=== PATIENT | female | born 1940 | race Caucasian/White ===

== ENCOUNTER 2021-01-21 12:53 | Observation (INO) ==
--- NOTE | 2021-01-21 15:30 | Emergency Department Note ---
History of Present Illness General Chief complaint: Rectal Bleed Stated complaint: DIVERTICULITIS, BLEEDING Time Seen by Provider: 01/21/21 15:11 Source: patient History of Present Illness Provider complaint: Weakness and shortness of breath Onset (ago): week(s) Location: chest Severity: moderate Pain Consistency: + constant Maximum Pain Intensity: 0 Quality: + other (Short of breath) Exacerbated By: + other (Exertion) Associated symptoms: + shortness of breath, + weakness and + other (Rectal bleeding); no chest pain, no cough, no fever/chills or no nausea/vomiting This is a 80-year-old female who presents to the emergency department for admission to the hospital. She was seen here last night and was initially admitted but then left AMA because she stated that she had to get her car home to her . She is coming back today because she was called at home and told that she has possible diverticulitis on her CT scan from last night. She also states that she is willing to stay in the hospital this time. She complains of feeling weak and having shortness of breath for the past 3 weeks. She states that she has no energy and and exertion makes her short of breath. She has noted some rectal bleeding for the past 2 weeks with maroon-colored stools. She does state that last night she had a bowel movement and there was bright red blood per rectum. She did have a rectal examination here in hemoglobin which was low. She was given a unit of packed RBCs but then left AGAINST MEDICAL ADVICE. She denies having any chest discomfort or pain. She denies any fever, cough or cold symptoms, vomiting or urinary symptoms. She denies any leg swelling or pain. She does state that she has some mild pain in her left lower abdomen. She is on Eliquis for atrial fibrillation. She states that she last took a dose yesterday morning. Home Medications Medication Instructions Recorded Confirmed Type apixaban 5 mg tablet (Eliquis) 5 mg PO BID 10/07/20 01/21/21 History aspirin 81 mg tablet,delayed 81 mg PO QAM 10/07/20 01/21/21 History release cyanocobalamin (vitamin B-12) 1,000 mcg PO QAM 10/07/20 01/21/21 History 1,000 mcg tablet gabapentin 800 mg tablet 800 mg PO DAILY 10/07/20 01/21/21 History lisinopril 10 mg tablet 10 mg PO QAM 10/07/20 01/21/21 History metoprolol tartrate 25 mg tablet 50 mg PO BID 10/07/20 01/21/21 History omeprazole 20 mg tablet,delayed 20 mg PO QAM 10/07/20 01/21/21 History release acetaminophen 325 mg tablet 650 mg PO HS 01/20/21 01/21/21 History (Tylenol) atorvastatin 80 mg tablet 80 mg PO DAILY 01/21/21 01/21/21 History empagliflozin 25 mg tablet 25 mg PO DAILY 01/21/21 01/21/21 History (Jardiance) metformin 500 mg tablet 500 mg PO BID 01/21/21 01/21/21 History oxybutynin chloride 5 mg 5 mg PO DAILY 01/21/21 01/21/21 History tablet,extended release 24 hr sertraline 25 mg tablet 25 mg PO DAILY 01/21/21 01/21/21 History trazodone 50 mg tablet 50 mg PO HS 01/21/21 01/21/21 History Allergies Allergy/AdvReac Type Severity Reaction Status Date / Time codeine Allergy Mild SICK Verified 01/20/21 19:01 propoxyphene Allergy Mild SICK Verified 01/20/21 19:01 BEE STING Allergy Severe Anaphylaxis Uncoded 01/20/21 19:01 Past Med/Surg History Medical History CAD (coronary artery disease) S/p PCI with BMS to D1 in 2011 COPD (chronic obstructive pulmonary disease) Per records Diabetes mellitus, type 2 GERD (gastroesophageal reflux disease) History of kidney stones Hyperlipidemia Hypertension Nocturnal hypoxemia Per records Obesity Osteoarthritis Paroxysmal atrial fibrillation PUD (peptic ulcer disease) Smoker Surgical History History of cataract surgery RT/LEFT History of colonoscopy History of cystoscopy History of heart artery stent 1 STENT PLACED to D1 in 2011 History of hysterectomy History of repair of rotator cuff RT History of tonsillectomy and adenoidectomy History of tooth extraction Family History Son Family history of diabetes mellitus Other No family history of adverse response to anesthesia Social History Smoking Status: Current every day smoker Tobacco Type: Cigarettes Cigarettes Per Day: 20 PER DAY; Second Hand Exposure: Yes (HUSBANDS SMOKE); Tobacco Cessation Education Requested by Patient: No Hx Alcohol Use: No Hx Substance Use: No Preferred Language: South Korean Communication Ability: Effective Migration Specialist Required: No Beliefs That Will Affect Care: None Current Living Situation: Spouse Other Information That Helps Us Care for You: No Feels Safe at Home: Yes Safety Concerns: Feels Safe At This Time Assistive Devices: None Review of Systems See HPI for pertinent positives & negatives. and A total of 10 systems reviewed and were otherwise negative Physical Exam Vital Signs Vital Signs - 24 hr 01/21/21 13:59 01/21/21 16:53 Temperature 36.8 C Temperature Source Temporal Artery Scan Pulse Rate 78 Pulse Rate [Apical] 72 Pulse Rhythm [Apical] Regular Respiratory Rate 18 16 Respiratory Effort / Characteristics Non-Labored Spontaneous Non-Labored Respiratory Depth Normal Normal Respiratory Pattern Regular Blood Pressure 149/69 H Blood Pressure [Right Arm] 155/110 H Blood Pressure Mean 95 Blood Pressure Mean [Right Arm] 125 Blood Pressure Position Sitting Pulse Oximetry 99 99 Oxygen Delivery Method Room Air Room Air Sepsis Recent Fever Within 48 Hours No Sepsis New/Unexplained Change in Mental Status N/A Sepsis Action Taken by Nursing No Action Required Constitutional: Vital signs reviewed. Eyes: Pupils are equal round reactive to light. Conjunctiva are noninjected. ENT: Pharynx is clear without erythema or exudate. Mucous membranes are moist. Neck supple without meningeal signs. Respiratory: Clear to auscultation bilaterally. Breath sounds are equal bilaterally. Cardiovascular: Regular rate and rhythm. No rubs or gallops. GI: Soft, nondistended with left lower quadrant tenderness. No guarding. Bowel sounds are present. Musculoskeletal: No peripheral edema. No lower extremity tenderness. Integumentary: No cyanosis. or jaundice. Neurological: The patient is awake and alert. No focal deficits. Psychiatric: Normal affect. Not anxious appearing. Course Administered Medications Pantoprazole Sodium 40 mg/ (Syringe) 10 mls @ 5 mls/min IV BID BARRON Stop: 02/20/21 20:59 Last Admin: 01/21/21 21:29 Dose: 5 mls/min Documented by: [id number] Sodium Chloride (Nss 1000ml) 1,000 mls @ 100 mls/hr IV .Q10H BARRON Stop: 02/20/21 20:26 Last Admin: 01/21/21 21:27 Dose: 100 mls/hr Documented by: [id number] Piperacillin Sod/Tazobactam (Sod 3.375 gm/ Dextrose) 115 mls @ 28.75 mls/hr IV Q8H BARRON; Protocol Stop: 01/31/21 21:59 Last Admin: 01/21/21 21:29 Dose: 28.8 mls/hr Documented by: [id number] Metoprolol Tartrate (Metoprolol Tartrate 50 Mg Tab) 50 mg PO BID BARRON Stop: 02/20/21 20:59 Last Admin: 01/21/21 21:28 Dose: 50 mg Documented by: [id number] Trazodone HCl (Trazodone Hcl 50 Mg Tab) 50 mg PO HS BARRON Stop: 02/20/21 20:59 Last Admin: 01/21/21 21:30 Dose: 50 mg Documented by: [id number] Discontinued Medications Piperacillin Sod/Tazobactam (Sod 4.5 gm/ Dextrose) 120 mls @ 200 mls/hr IV NOW ONE; Protocol Stop: 01/21/21 16:48 Last Infusion: 01/21/21 19:32 Dose: 0 mls/hr Documented by: [id number] Admin: 01/21/21 18:01 Dose: 200 mls/hr Documented by: [id number] Pantoprazole Sodium (Pantoprazole 40 Mg Tab) 40 mg PO NOW STA Stop: 01/21/21 16:24 Last Admin: 01/21/21 17:05 Dose: 40 mg Documented by: [id number] Piperacillin Sod/Tazobactam Sod (Piperacillin/Tazobactam 4.5 Gm/120ml D5w) Confirm Administered Dose 4.5 gm IV .STK-MED ONE Stop: 01/21/21 17:57 Last Admin: 01/21/21 18:05 Dose: Not Given Documented by: [id number] Medical Decision Making Differential Diagnosis GI bleed, ACS, demand ischemia, anemia, diverticulitis Medical Records Attestation: I reviewed the patient's medical records. I did perform a limited focused review of portions of the patient's old chart on the electronic medical record. The patient was seen last night for rectal bleeding and lumbar radiculopathy. She had a work-up in the emergency department which showed a hemoglobin of 7.4 with a positive troponin. She was transfused 1 unit of packed RBCs and admitted to the hospital. She left AMA. Official reading of the CT scan of the abdomen pelvis from yesterday demonstrates possible developing diverticulitis over one diverticulum in the sigmoid colon. Home Medications Current Medication List: was personally reviewed by me Laboratory Data Attestation: I reviewed the patient's lab results. Result diagrams: 01/21/21 15:50 01/21/21 15:50 Lab Results 01/21/21 01/21/21 01/21/21 Range/Units 15:50 15:50 17:10 WBC 8.98 (4.8-10.8) K/uL RBC 4.02 L (4.2-5.4) M/uL Hgb 9.3 L (12.0-16.0) g/dL Hct 30.7 L (37-47) % MCV 76.4 L (80-100) fL MCH 23.1 L (25-34) pg MCHC 30.3 L (32-36) g/dL RDW Std Deviation 51.0 H (36.4-46.3) fL RDW Coeff of Dash 18.0 H (11.5-14.5) % Plt Count 341 (130-400) K/uL MPV 10.4 (7.4-10.4) fL Immature Gran % (Auto) 0.2 % Neut % (Auto) 60.5 % Lymph % (Auto) 27.6 % Ford % (Auto) 8.1 % Eos % (Auto) 2.9 % Baso % (Auto) 0.7 % Neut # (Auto) 5.43 (1.4-6.5) K/uL Lymph # (Auto) 2.48 (1.2-3.4) K/uL Ford # (Auto) 0.73 H (0.11-0.59) K/uL Eos # (Auto) 0.26 (0-0.5) K/uL Baso # (Auto) 0.06 (0-0.2) K/uL Immature Gran # (Auto) 0.02 (0.00-0.02) K/uL Sodium 137 (136-145) mmol/L Potassium 4.6 (3.5-5.1) mmol/L Chloride 108 H (98-107) mmol/L Carbon Dioxide 23 (21-32) mmol/L Anion Gap 6.0 (3-11) BUN 12 (7-18) mg/dl Creatinine 1.14 (0.6-1.2) mg/dl Est Cr Clr Drug Dosing 35.9 ml/min Est GFR ( Amer) 53.3 ml/min Est GFR (Non-Af Amer) 46.0 ml/min BUN/Creatinine Ratio 10.3 (10-20) Glucose 127 H (70-99) mg/dl Calcium 8.8 (8.5-10.1) mg/dl Troponin I 0.832 H* (0-0.045) ng/ml COVID-19 Eval Order Covid19 at [facility] SARS-CoV-2 (PCR) (Negative) 01/21/21 Range/Units 17:10 WBC (4.8-10.8) K/uL RBC (4.2-5.4) M/uL Hgb (12.0-16.0) g/dL Hct (37-47) % MCV (80-100) fL MCH (25-34) pg MCHC (32-36) g/dL RDW Std Deviation (36.4-46.3) fL RDW Coeff of Dash (11.5-14.5) % Plt Count (130-400) K/uL MPV (7.4-10.4) fL Immature Gran % (Auto) % Neut % (Auto) % Lymph % (Auto) % Ford % (Auto) % Eos % (Auto) % Baso % (Auto) % Neut # (Auto) (1.4-6.5) K/uL Lymph # (Auto) (1.2-3.4) K/uL Ford # (Auto) (0.11-0.59) K/uL Eos # (Auto) (0-0.5) K/uL Baso # (Auto) (0-0.2) K/uL Immature Gran # (Auto) (0.00-0.02) K/uL Sodium (136-145) mmol/L Potassium (3.5-5.1) mmol/L Chloride (98-107) mmol/L Carbon Dioxide (21-32) mmol/L Anion Gap (3-11) BUN (7-18) mg/dl Creatinine (0.6-1.2) mg/dl Est Cr Clr Drug Dosing ml/min Est GFR ( Amer) ml/min Est GFR (Non-Af Amer) ml/min BUN/Creatinine Ratio (10-20) Glucose (70-99) mg/dl Calcium (8.5-10.1) mg/dl Troponin I (0-0.045) ng/ml COVID-19 Eval Order SARS-CoV-2 (PCR) NEGATIVE (Negative) ECG Data Attestation: I personally reviewed and interpreted this ECG as follows: Indication: + SOB/dyspnea Rate (beats per minute): 75 Rhythm: + normal sinus ECG [place]: + Normal ECG ST segments: no ST elevation ECG Findings: no PVCs MDM Narrative I did evaluate the patient as noted above. The patient is presenting with a 2 to 3-week history of dyspnea on exertion, weakness and rectal bleeding. She left AGAINST MEDICAL ADVICE after being admitted yesterday for hemoglobin of 7.4. She did receive a transfusion of 1 unit of packed RBCs yesterday. She is here today because her CT scan showed evidence of diverticulitis. She does have some tenderness in the left lower quadrant on my examination or is previously she did not report any abdominal pain. IV access was established. I did place an order for continuous cardiac monitoring. The monitor showed normal sinus rhythm at a rate of 75 bpm. I did order and personally review the patient's 12-lead EKG as described above. She has no evidence of acute ischemic changes. I did order and review the patient's blood work as noted in the electronic medical record. I did order a CT of the abdomen and pelvis. I did review the images myself as well as the radiology report as described above. Her white blood cell count is not elevated. Hemoglobin is improved at 9.3. Platelet count is within normal limits. Electrolytes are unremarkable. Troponin is slightly higher than it was yesterday. It is 0.832. I did reassess the patient. She denies having any chest discomfort or shortness of breath at this time. ACS seems unlikely. She had a negative Covid test here. I did treat her with Zosyn IV for her diverticulitis. I did recommend hospitalization. I did discuss the case with the hospitalist and corrections caseworker. Impression & Plan Diverticulitis of sigmoid colon, GI bleed, Elevated troponin, Symptomatic anemia Discharge Plan Visit Data Chief Complaint: Rectal Bleed Stated Complaint: DIVERTICULITIS, BLEEDING ED Provider: Abhijeet Alba Discharge Problem: Diverticulitis of sigmoid colon, GI bleed, Elevated troponin, Symptomatic anemia Patient Disposition: Admitted As Inpatient Condition: Good Discharge Instructions Interventions: ED Discharge Assessment Last Done: 01/21/21 20:15
--- NOTE | 2021-01-21 15:57 | Electrocardiogram Report ---
Test Reason : Blood Pressure : / mmHG Vent. Rate : 075 BPM Atrial Rate : 075 BPM P-R Int : 118 ms QRS Dur : 062 ms QT Int : 348 ms P-R-T Axes : 000 038 030 degrees QTc Int : 388 ms Normal sinus rhythm Normal ECG When compared with ECG of 21-JAN-2021 13:00, Non-specific intra-ventricular conduction delay with repolarization abnormality no longer present Confirmed by Jae Molina ([id number]) on 01/21/2021 3:57:38 PM Referred By: REFERRED SELF Confirmed By:Jae Molina
[2021-01-21 16:03] LABS: Basophils # (auto) 0.06 K/uL (0-0.2); Basophils % (auto) 0.7 %; Eosinophils # (auto) 0.26 K/uL (0-0.5); Eosinophils % (auto) 2.9 %; Hematocrit (blood only) 30.7 % (37-47); Hemoglobin 9.3 g/dL (12.0-16.0); Immature Granulocytes # (auto) 0.02 K/uL (0.00-0.02); Immature Granulocytes % (auto) 0.2 %; Lymphocytes # (auto) 2.48 K/uL (1.2-3.4); Lymphocytes % (auto) 27.6 %; Mean Corpuscular Hemoglobin 23.1 pg (25-34); Mean Corpuscular Hgb Conc 30.3 g/dL (32-36); Mean Corpuscular Volume 76.4 fL (80-100); Mean Platelet Volume 10.4 fL (7.4-10.4); Monocytes # (auto) 0.73 K/uL (0.11-0.59); Monocytes % (auto) 8.1 %; Neutrophils # (auto) 5.43 K/uL (1.4-6.5); Neutrophils % (auto) 60.5 %; Platelet Count 341 K/uL (130-400); Red Blood Count 4.02 M/uL (4.2-5.4); White Blood Count 8.98 K/uL (4.8-10.8)
[2021-01-21] MEDS ORDERED: PIPERACILLIN/TAZOBACTAM 4.5 GM in DEXTROSE 5% 100 ML IV ONE (16:13)
[2021-01-21] MEDS ORDERED: PIPERACILL/TAZOBAC CONSULT ACTIVE PRN ×2 (16:13→20:27)
[2021-01-21 16:22] LABS: BUN Creatinine Ratio 10.3 (10-20); Calcium 8.8 mg/dl (8.5-10.1); Creatinine Clr Calc Pharmacy 35.9 ml/min; Est GFR (African American) 53.3 ml/min; Potassium 4.6 mmol/L (3.5-5.1)
[2021-01-21] MEDS ORDERED: PANTOprazole 40 MG TAB PO STA (16:23)
[2021-01-21 16:32] LABS: Troponin I 0.832 ng/ml (0-0.045)
--- NOTE | 2021-01-21 16:39 | Pharmacy Report ---
ED Pharmacist Progress Note - ED Pharmacist Progress Note Date of Service:: January 21, 2021 Notes:: Dr. Alba requested that outpatient Rx for pantoprazole sent to [facility] be cancelled. I called them and left a message requesting that the Rx for pantoprazole be cancelled. ED phone number provided.
[2021-01-21] MEDS ORDERED: PIPERACILLIN/TAZOBACTAM 4.5 GM/120ML D5W IV ONE (17:56)
[2021-01-21] MEDS ORDERED: SODIUM CHLORIDE 0.9% 250 ML IV PRN (18:20)
[2021-01-21] MEDS ORDERED: ACETAMINOPHEN 325 MG TAB PO PRN (20:27)
--- NOTE | 2021-01-21 20:39 | History & Physical Report ---
Date of Service January 21, 2021 Assessment & Plan (1) Diverticulitis: (2) GI bleed: Plan: -Admit to telemetry -Patient initially presented to the ED yesterday with reports of shortness of breath. Found to have Hgb 7.4. Patient also reporting maroon-colored stools fo r the past few weeks. Patient is anticoagulated on Eliquis. Patient received 1 unit PRBC in the ED last evening and then signed out AMA. -CT ABD/pelvis yesterday also showed signs of early sigmoid diverticulitis. -Patient with history of bleeding ulcer in the 1960s, also reports daily NSAID use -No recent EGD, colonoscopy 2018 showed sigmoid diverticulosis -Upper and/or lower GI bleeding in the setting of anticoagulation Eliquis due to PUD vs. NSAID gastropathy vs. diverticular bleed -S/p Zosyn in the ED, continue with -IV PPI twice daily -GI consult, input appreciated (3) Symptomatic anemia: Plan: -Hgb 7.4 01/20 s/p 1 unit PRBC -Hgb 9.3 -Trend H&H q8h -2 unit PRBC on hold (4) Paroxysmal atrial fibrillation: Plan: -Currently in NSR -History of cardioversion -Rate controlled on metoprolol, will continue -Holding Eliquis due to GI bleeding (5) CAD (coronary artery disease): (6) Elevated troponin: Plan: -Troponin 0.832 -hx of CAD, s/p BMS to [id number] -No reports of chest pain, no acute ST changes on EKG -Likely demand ischemia in the setting of anemia -Continue to trend troponin, resting echo -Holding aspirin due to GI bleeding -Continue beta-laureano and statin -Cardiology consult, input appreciated (7) Diabetes mellitus, type 2: Plan: -Hgb A1c 7.9 11/2020 -Hold oral agents and utilize NovoLog per protocol while hospitalized (8) Hypertension: Plan: -BP currently controlled, continuing metoprolol as above, hold lisinopril for now (9) DVT prophylaxis: Plan: -SCDs due to GI bleeding Admission and Anticipated Discharge Date Admission Date: January 21, 2021 History of Present Illness Chief Complaint: Shortness of breath, GI bleeding Primary Care Provider: Amparo Rich DO 80-year-old female with PMH DM type II, COPD, CAD, paroxysmal atrial fibrillation anticoagulated on Eliquis, HTN, CKD stage III, and other problems listed below who presents to the ED after signing out AMA last evening for GI bleeding and symptomatic anemia. Patient reports over the past few weeks, she has been having increasing shortness of breath with minimal exertion. She also has been having maroon-colored stools for the past 3 weeks as well. Patient was seen in the ED last evening and found to have hemoglobin 7.4. Patient received [address] ABD/pelvis showed a possible early sigmoid diverticulitis. Patient signed out AMA because she had to get her car to her . She returned back to the ED today for reevaluation. Patient reports she noted bright red bleeding per rectum today. She also has developed LLQ abdominal tenderness. She denies fevers and chills. No chest pain or shortness of breath. Denies lightheadedness, dizziness, diaphoresis, syncopal events. No urinary symptoms. Patient reports taking ibuprofen twice daily for the past several years. Also reports a history of a bleeding ulcer in the 1960s. In the ED today, Hgb 9.3. WBC 8K, afebrile. Patient was given Protonix 40 mg p.o., IV Zosyn, IVF. Allergies Allergy/AdvReac Type Severity Reaction Status Date / Time codeine Allergy Mild SICK Verified 01/20/21 19:01 propoxyphene Allergy Mild SICK Verified 01/20/21 19:01 BEE STING Allergy Severe Anaphylaxis Uncoded 01/20/21 19:01 Home Medications Medication Instructions Recorded Confirmed Type apixaban 5 mg tablet (Eliquis) 5 mg PO BID 10/07/20 01/21/21 History aspirin 81 mg tablet,delayed 81 mg PO QAM 10/07/20 01/21/21 History release cyanocobalamin (vitamin B-12) 1,000 mcg PO QAM 10/07/20 01/21/21 History 1,000 mcg tablet gabapentin 800 mg tablet 800 mg PO DAILY 10/07/20 01/21/21 History lisinopril 10 mg tablet 10 mg PO QAM 10/07/20 01/21/21 History metoprolol tartrate 25 mg tablet 50 mg PO BID 10/07/20 01/21/21 History omeprazole 20 mg tablet,delayed 20 mg PO QAM 10/07/20 01/21/21 History release acetaminophen 325 mg tablet 650 mg PO HS 01/20/21 01/21/21 History (Tylenol) atorvastatin 80 mg tablet 80 mg PO DAILY 01/21/21 01/21/21 History empagliflozin 25 mg tablet 25 mg PO DAILY 01/21/21 01/21/21 History (Jardiance) metformin 500 mg tablet 500 mg PO BID 01/21/21 01/21/21 History oxybutynin chloride 5 mg 5 mg PO DAILY 01/21/21 01/21/21 History tablet,extended release 24 hr sertraline 25 mg tablet 25 mg PO DAILY 01/21/21 01/21/21 History trazodone 50 mg tablet 50 mg PO HS 01/21/21 01/21/21 History Past Med/Surg History Medical History CAD (coronary artery disease) S/p PCI with BMS to D1 in 2011 COPD (chronic obstructive pulmonary disease) Per records Diabetes mellitus, type 2 GERD (gastroesophageal reflux disease) History of kidney stones Hyperlipidemia Hypertension Nocturnal hypoxemia Per records Obesity Osteoarthritis Paroxysmal atrial fibrillation PUD (peptic ulcer disease) Smoker Surgical History History of cataract surgery RT/LEFT History of colonoscopy History of cystoscopy History of heart artery stent 1 STENT PLACED to D1 in 2011 History of hysterectomy History of repair of rotator cuff RT History of tonsillectomy and adenoidectomy History of tooth extraction Family History Son Family history of diabetes mellitus Other No family history of adverse response to anesthesia Social History Smoking Status: Current every day smoker Tobacco Type: Cigarettes Cigarettes Per Day: 20 PER DAY; Second Hand Exposure: Yes (HUSBANDS SMOKE); Tobacco Cessation Education Requested by Patient: No Hx Alcohol Use: No Hx Substance Use: No Preferred Language: Uruguayan Communication Ability: Effective Plate Painter Required: No Beliefs That Will Affect Care: None Current Living Situation: Spouse Other Information That Helps Us Care for You: No Feels Safe at Home: Yes Safety Concerns: Feels Safe At This Time Assistive Devices: None Review of Systems Review of Systems: ROS per HPI, all other systems reviewed and negative Physical Exam Constitutional: WD/WN, vitals as above Eyes: PERRL, conjunctivae normal, anicteric sclerae ENMT: external ear and nose normal, oropharynx normal Respiratory: normal respiratory effort, lungs clear to auscultation Cardiovascular: Rate/Rhythm: regular rate and regular rhythm Vessels: normal peripheral pulses Extremities: no edema Gastrointestinal (Abdomen): Inspection/Auscultation: normal bowel sounds Percussion/Palpation: + abdomen tender (Mild, LLQ) and abdomen soft; no guarding, abdomen not rigid and no hepatosplenomegaly Musculoskeletal: no cyanosis or clubbing, extremities motor strength 5/5 Skin: no rashes, warm and dry Neurologic: PERRL, EOMI, accommodation nl, no face palsy, no dysarthria Psychiatric: A+Ox3, euthymic affect Results & Data Results & Data ([facility]) Vital Signs (Past 12 Hours) Vital Signs Temp Pulse Pulse Resp BP BP Pulse Ox 01/21/21 18:37 75 16 136/94 99 01/21/21 16:53 72 16 155/110 H 99 01/21/21 13:59 36.8 C 78 18 149/69 H 99 Laboratory Results Short CBC 01/21/21 Range/Units 15:50 WBC 8.98 (4.8-10.8) K/uL Hgb 9.3 L (12.0-16.0) g/dL Hct 30.7 L (37-47) % Plt Count 341 (130-400) K/uL BMP 01/21/21 15:50 Sodium 137 Potassium 4.6 Chloride 108 H Carbon Dioxide 23 BUN 12 Creatinine 1.14 Glucose 127 H Calcium 8.8 Cardiac Enzymes 01/21/21 Range/Units 15:50 Troponin I 0.832 H* (0-0.045) ng/ml Diagnostic Findings 01/20/2021 CT ABD/pelvis IMPRESSION: 1. Questionable mild inflammatory change adjacent to a single sigmoid diverticulum as described above. This could be chronic or represent a developing acute diverticulitis. This finding was called/faxed to the emergency department following dictation. 2. No evidence for bowel obstruction. 3. Gas within the bladder lumen. This could be due to recent catheterization. 4. Cholelithiasis. Code Status & VTE Plan Code Status Patient is a full code as per my discussion with her. VTE Prophylaxis Plan VTE Prophylaxis will be ordered: Yes Supervising Physician Co-Signing Physician Notes 80-year-old lady with past medical history of T2DM with PDN, COPD, CAD, HTN, paroxysmal A. fib on Eliquis, CKD stage IIIa, lumbosacral spondylosis/spinal stenosis of lumbar region on chronic ibuprofen twice a day who initially presented with complaint of shortness of breath and maroon colored stool for past 3 weeks and left AMA and came back again for reevaluation of her condition. EXAM FINDINGS: GENERAL: Alert and oriented x3. NAD, on RA. HEENT: No pallor, no icterus. Pupils equal, round and reactive to light. Oral mucosa moist. NECK: No JVD, no neck masses. HEART: S1 and S2 heard. Regular rate and rhythm. No murmur, no gallop. RESPIRATORY SYSTEM: Normal AP diameter. No accessory muscle use. No wheezing, no crackles. ABDOMEN: Soft, bowel sounds present, Mild LLQ tenderness, no distention. CENTRAL NERVOUS SYSTEM: Alert and oriented x3. No facial droop. Speech is clear. Obeys simple commands. Moves extremities. EXTREMITIES: No edema, no erythema seen. She is being managed for diverticular bleed/early diverticulitis versus PUD bleed. Will hold Eliquis/ibuprofen/aspirin, will order oral pantoprazole IV twice daily/n.p.o. status/IV fluids/GI consult/hemoglobin every 8 hours. For her troponin elevation [EKG showed no acute ST or T wave changes], will trend troponins consult cardiology. I have seen and examined the patient and have discussed the case with the provider above. I agree with the assessment and plan as stated. (1) GI bleed GI bleed type/associated pathology: unspecified gastrointestinal hemorrhage type Qualified Code(s): K92.2 - Gastrointestinal hemorrhage, unspecified
[2021-01-21] MEDS: SODIUM CHLORIDE 0.9% 1000ML 1,000 ML IV SCH (21:27)
[2021-01-21] MEDS: METOPROLOL TARTRATE 50 MG TAB PO SCH (21:28)
[2021-01-21] MEDS: PIPERACILLIN/TAZOBACTAM 3.375 GM in DEXTROSE 5% 100 ML IV SCH (21:29)
[2021-01-21] MEDS: PANTOprazole 40 MG in SYRINGE 0 ML IV SCH (21:29)
[2021-01-21] MEDS: traZODone HCL 50 MG TAB PO SCH (21:30)
[2021-01-21 23:19] LABS: Hematocrit (blood only) 27.3 % (37-47); Hemoglobin 8.2 g/dL (12.0-16.0)
[2021-01-22 04:37] LABS: Hematocrit (blood only) 27.9 % (37-47); Hemoglobin 8.4 g/dL (12.0-16.0); Mean Corpuscular Hemoglobin 22.8 pg (25-34); Mean Corpuscular Hgb Conc 30.1 g/dL (32-36); Mean Corpuscular Volume 75.8 fL (80-100); Mean Platelet Volume 9.9 fL (7.4-10.4); Nucleated RBC # (auto) 0.02 K/uL (0-0); Nucleated RBC % (auto) 0.2 %; Platelet Count 287 K/uL (130-400); RDW Coefficient of Variation 18.1 % (11.5-14.5); RDW Standard Deviation 50.3 fL (36.4-46.3); Red Blood Count 3.68 M/uL (4.2-5.4); White Blood Count 8.22 K/uL (4.8-10.8)
[2021-01-22 04:59] LABS: BUN Creatinine Ratio 9.3 (10-20); Calcium 8.4 mg/dl (8.5-10.1); Creatinine Clr Calc Pharmacy 36.8 ml/min; Est GFR (African American) 55.1 ml/min; Est GFR (Non-African American) 47.5 ml/min; Magnesium 2.3 mg/dl (1.8-2.4); Potassium 4.6 mmol/L (3.5-5.1)
[2021-01-22 05:04] LABS: Ferritin 5.3 ng/ml (8-388)
[2021-01-22] MEDS: PIPERACILLIN/TAZOBACTAM 3.375 GM in DEXTROSE 5% 100 ML IV SCH ×3 (05:44→22:45)
--- NOTE | 2021-01-22 07:50 | Electrocardiogram Report ---
Test Reason : Blood Pressure : / mmHG Vent. Rate : 074 BPM Atrial Rate : 074 BPM P-R Int : 150 ms QRS Dur : 068 ms QT Int : 366 ms P-R-T Axes : 033 027 024 degrees QTc Int : 406 ms Sinus rhythm with frequent Premature atrial complexes Nonspecific T wave abnormality Septal leads Abnormal ECG When compared with ECG of 21-JAN-2021 15:39, No significant change was found Confirmed by Jae Molina ([id number]) on 01/22/2021 7:50:12 AM Referred By: REFERRED SELF Confirmed By:Jae Molina
[2021-01-22] MEDS: SODIUM CHLORIDE 0.9% 1000ML 1,000 ML IV SCH (08:06)
[2021-01-22] MEDS: PANTOprazole 40 MG in SYRINGE 0 ML IV SCH ×2 (08:21→20:59)
[2021-01-22] MEDS: SERTRALINE HCL 50 MG TABLET PO SCH (08:21)
[2021-01-22] MEDS: METOPROLOL TARTRATE 50 MG TAB PO SCH ×2 (08:21→20:59)
[2021-01-22] MEDS: ATORVASTATIN 40 MG TAB PO SCH (08:22)
[2021-01-22] MEDS: GABAPENTIN 800 MG TAB PO SCH (08:22)
[2021-01-22] MEDS: OXYBUTYNIN CHLORIDE XL 5 MG TABCR PO SCH (08:22)
[2021-01-22] MEDS ORDERED: FERROUS SULFATE 325 MG TAB PO SCH (09:00)
--- NOTE | 2021-01-22 09:16 | Gastrointestinal Consultation ---
Date of Consultation January 22, 2021 Assessment & Plan (1) Colitis: Patient has a colitis possibly diverticulitis without evidence of complication but with rectal bleeding without hemodynamic compromise. She does note to have a chronically low MCV at 75 which suggest a chronic issue, hemoglob in is actually increased from last evening. And she does not have evidence of an acute ongoing GI bleed. The differential diagnosis for this would include diverticulitis, ischemic colitis, infectious colitis, possibly diverticular bleed although imaging and abdominal pain would not usually be associated with that. -Continue supportive care -Okay for liquid diet -IV antibiotics -Hold Eliquis -We will require EGD colonoscopy at some point likely as an outpatient for chronic anemia as well as this acute issue -Please send stool studies to include culture, C. difficile, if not checked already History of Present Illness Reason for Consultation: Diverticulitis and rectal bleeding Attending Physician: Levi Fragoso MD History of Present Illness This 80-year-old female with PMH DM type II, COPD, CAD, paroxysmal atrial fibrillation anticoagulated on Eliquis, HTN, CKD stage III, and other problems listed below who presents to the ED after signing out AMA last evening and abdominal pain. She states over the past few weeks, she has been having increasing shortness of breath with minimal exertion. She also has been having maroon-colored stools for the past 3 days after having had several days of diarrhea. Patient was seen in the ED last evening and found to have hemoglobin 7.4. Patient received [address] ABD/pelvis showed a possible early sigmoid diverticulitis. Patient signed out AMA. She returned back to the ED today for reevaluation after being called from the ER to return for diverticulitis. She does note that she has had left lower quadrant abdominal pain that is much better now, she had a few episodes of some scant bleeding yesterday none overnight or this morning, says that it is much improved. Overall she feels improved and she has an appetite. She has no nausea vomiting, no melena no hematemesis. Denies lightheadedness, dizziness, diaphoresis, syncopal events. No urinary symptoms. Upon presentation Hgb 9.3. WBC 8K, afebrile. Overall she states she is improved but not entirely well. Allergies Allergy/AdvReac Type Severity Reaction Status Date / Time codeine Allergy Mild SICK Verified 01/20/21 19:01 propoxyphene Allergy Mild SICK Verified 01/20/21 19:01 BEE STING Allergy Severe Anaphylaxis Uncoded 01/20/21 19:01 Home Medications Medication Instructions Recorded Confirmed Type apixaban 5 mg tablet (Eliquis) 5 mg PO BID 10/07/20 01/21/21 History aspirin 81 mg tablet,delayed 81 mg PO QAM 10/07/20 01/21/21 History release cyanocobalamin (vitamin B-12) 1,000 mcg PO QAM 10/07/20 01/21/21 History 1,000 mcg tablet gabapentin 800 mg tablet 800 mg PO DAILY 10/07/20 01/21/21 History lisinopril 10 mg tablet 10 mg PO QAM 10/07/20 01/21/21 History metoprolol tartrate 25 mg tablet 50 mg PO BID 10/07/20 01/21/21 History omeprazole 20 mg tablet,delayed 20 mg PO QAM 10/07/20 01/21/21 History release acetaminophen 325 mg tablet 650 mg PO HS 01/20/21 01/21/21 History (Tylenol) atorvastatin 80 mg tablet 80 mg PO DAILY 01/21/21 01/21/21 History empagliflozin 25 mg tablet 25 mg PO DAILY 01/21/21 01/21/21 History (Jardiance) metformin 500 mg tablet 500 mg PO BID 01/21/21 01/21/21 History oxybutynin chloride 5 mg 5 mg PO DAILY 01/21/21 01/21/21 History tablet,extended release 24 hr sertraline 25 mg tablet 25 mg PO DAILY 01/21/21 01/21/21 History trazodone 50 mg tablet 50 mg PO HS 01/21/21 01/21/21 History Patient History Medical History CAD (coronary artery disease) S/p PCI with BMS to D1 in 2011 COPD (chronic obstructive pulmonary disease) Per records Diabetes mellitus, type 2 GERD (gastroesophageal reflux disease) History of kidney stones Hyperlipidemia Hypertension Nocturnal hypoxemia Per records Obesity Osteoarthritis Paroxysmal atrial fibrillation PUD (peptic ulcer disease) Smoker Surgical History History of cataract surgery RT/LEFT History of colonoscopy History of cystoscopy History of heart artery stent 1 STENT PLACED to D1 in 2011 History of hysterectomy History of repair of rotator cuff RT History of tonsillectomy and adenoidectomy History of tooth extraction Family History Son Family history of diabetes mellitus Other No family history of adverse response to anesthesia Social History Smoking Status: Current every day smoker Tobacco Type: Cigarettes Cigarettes Per Day: 20 PER DAY; Second Hand Exposure: Yes (HUSBANDS SMOKE); Tobacco Cessation Education Requested by Patient: No Hx Alcohol Use: No Hx Substance Use: No Preferred Language: Sudanese Communication Ability: Effective Gang Rider Required: No Beliefs That Will Affect Care: None Current Living Situation: Spouse Other Information That Helps Us Care for You: No Feels Safe at Home: Yes Safety Concerns: Feels Safe At This Time Assistive Devices: None Review of Systems Review of Systems: 10 system review negative except for stated in the HPI Physical Exam Physical Exam: Awake alert oriented x3 no apparent distress Heart is regular Lungs are clear Abdomen soft nontender nondistended No peripheral edema Obese Neurologically intact Results & Data ([facility]) Vital Signs (Past 12 Hours) Vital Signs Temp Pulse Pulse Resp BP BP Pulse Ox 01/22/21 08:10 37.1 C 71 117 H 21 135/84 96 01/22/21 06:34 156/60 H 01/22/21 06:33 156/60 H 01/22/21 06:22 36.7 C 01/22/21 00:00 36.7 C 97 H 01/21/21 22:50 76 19 01/21/21 22:40 81 17 01/21/21 22:30 75 17 01/21/21 22:22 81 21
[2021-01-22] MEDS: SODIUM CHLORIDE 0.45 % 1,000 ML IV SCH ×2 (09:29→18:13)
[2021-01-22] MEDS: FOLIC ACID 1 MG TAB PO SCH (11:38)
--- NOTE | 2021-01-22 12:30 | Cardiology Consultation ---
Date of Consultation January 22, 2021 Assessment & Plan (1) GI bleed: (2) Symptomatic anemia: (3) Elevated troponin: (4) Diverticulitis of sigmoid colon: (5) CAD (coronary artery disease): (6) Paroxysmal atrial fibrillation: Patient is a 80-year-old female with cardiac issues as outlined including chronic stable ischemic heart disease, paroxysmal atrial fibrillation, labile hypertension. Patient presents with evidence of GI bleeding acute on chronic possible acute diverticulitis with symptomatic complaints of abdominal pain and discomfort. Patient required 1 unit transfusion Troponins are elevated noted on admission. No evidence of acute ischemia by EKG or echocardiogram and likely reflects demand based ischemia secondary to anemia and stressors of current acute illness. Agree with current plan. Would hold Eliquis, lisinopril. Continue metoprolol Currently hemodynamically stable will follow with patient hospital Gastroenterology also involved History of Present Illness Reason for Consultation: Paroxysmal atrial arrhythmia, elevated troponin Requesting Physician: Dr. Fragoso Attending Physician: Levi Fragoso MD History of Present Illness Patient is a 80-year-old female with underlying medical and cardiac issues which include 1. Atherosclerotic coronary disease status post PCI LAD diagonal 2011 (bare- metal stent) complicated by GI bleed with Integrilin infusion 2. Paroxysmal atrial fibrillation 3. Type 2 diabetes mellitus 4. Hyperlipidemia 5. Chronic obstructive lung disease with ongoing tobacco use 6. Labile hypertension Patient presents this admission with difficulties with abdominal pain and discomfort, maroon stools x3 days. Patient initially evaluated in the emergency room and declined admission only to return last evening with ongoing pain and discomfort CT findings of possible diverticulitis. Hemoglobin on initial p resentation was 7.4 Patient denied any chest pains or shortness of breath. Was not aware of any tachypalpitations. No dizziness or lightheadedness other than with associated complaints this admission. She has been chilled but no overt fevers. No change in exercise capacity prior to current events. No chest pains this morning with only abdominal discomfort complain improved since admission Troponin since admission elevated but without acute ST segment changes on EKG. Echocardiogram demonstrates hyperdynamic LV function without wall motion abnormality on preliminary review at bedside Allergies Allergy/AdvReac Type Severity Reaction Status Date / Time codeine Allergy Mild SICK Verified 01/20/21 19:01 propoxyphene Allergy Mild SICK Verified 01/20/21 19:01 BEE STING Allergy Severe Anaphylaxis Uncoded 01/20/21 19:01 Home Medications Medication Instructions Recorded Confirmed Type apixaban 5 mg tablet (Eliquis) 5 mg PO BID 10/07/20 01/21/21 History aspirin 81 mg tablet,delayed 81 mg PO QAM 10/07/20 01/21/21 History release cyanocobalamin (vitamin B-12) 1,000 mcg PO QAM 10/07/20 01/21/21 History 1,000 mcg tablet gabapentin 800 mg tablet 800 mg PO DAILY 10/07/20 01/21/21 History lisinopril 10 mg tablet 10 mg PO QAM 10/07/20 01/21/21 History metoprolol tartrate 25 mg tablet 50 mg PO BID 10/07/20 01/21/21 History omeprazole 20 mg tablet,delayed 20 mg PO QAM 10/07/20 01/21/21 History release acetaminophen 325 mg tablet 650 mg PO HS 01/20/21 01/21/21 History (Tylenol) atorvastatin 80 mg tablet 80 mg PO DAILY 01/21/21 01/21/21 History empagliflozin 25 mg tablet 25 mg PO DAILY 01/21/21 01/21/21 History (Jardiance) metformin 500 mg tablet 500 mg PO BID 01/21/21 01/21/21 History oxybutynin chloride 5 mg 5 mg PO DAILY 01/21/21 01/21/21 History tablet,extended release 24 hr sertraline 25 mg tablet 25 mg PO DAILY 01/21/21 01/21/21 History trazodone 50 mg tablet 50 mg PO HS 01/21/21 01/21/21 History Patient History Medical History CAD (coronary artery disease) S/p PCI with BMS to D1 in 2011 COPD (chronic obstructive pulmonary disease) Per records Diabetes mellitus, type 2 GERD (gastroesophageal reflux disease) History of kidney stones Hyperlipidemia Hypertension Nocturnal hypoxemia Per records Obesity Osteoarthritis Paroxysmal atrial fibrillation PUD (peptic ulcer disease) Smoker Surgical History History of cataract surgery RT/LEFT History of colonoscopy History of cystoscopy History of heart artery stent 1 STENT PLACED to D1 in 2011 History of hysterectomy History of repair of rotator cuff RT History of tonsillectomy and adenoidectomy History of tooth extraction Family History Son Family history of diabetes mellitus Other No family history of adverse response to anesthesia Social History Smoking Status: Current every day smoker Tobacco Type: Cigarettes Cigarettes Per Day: 20 PER DAY; Second Hand Exposure: Yes (HUSBANDS SMOKE); Tobacco Cessation Education Requested by Patient: No Hx Alcohol Use: No Hx Substance Use: No Preferred Language: Andorran Communication Ability: Effective Concrete Journeyman Required: No Beliefs That Will Affect Care: None Current Living Situation: Spouse Other Information That Helps Us Care for You: No Feels Safe at Home: Yes Safety Concerns: Feels Safe At This Time Assistive Devices: None Review of Systems Review of Systems: All systems reviewed & are unremarkable except as noted in HPI & below Physical Exam Constitutional: + ill appearing Eyes: PERRL, conjunctivae normal, anicteric sclerae ENMT: external ear and nose normal, oropharynx normal Neck: trachea midline, no thyromegaly Respiratory: normal respiratory effort, lungs clear to auscultation Cardiovascular: Rate/Rhythm: regular rate and regular rhythm Heart Sounds: normal S1 and normal S2; no gallop and no murmur Palpation: normal PMI Vessels: normal carotid upstroke and radial pulses present; no JVD and no carotid bruit Extremities: no edema Gastrointestinal (Abdomen): Percussion/Palpation: + abdomen tender; no guarding and abdomen not rigid Musculoskeletal: no cyanosis or clubbing, extremities motor strength 5/5 Skin: no rashes, warm and dry Neurologic: PERRL, EOMI, accommodation nl, no face palsy, no dysarthria Psychiatric: A+Ox3, euthymic affect Results & Data ([facility]) Vital Signs (Past 12 Hours) Vital Signs Temp Pulse Pulse Resp BP BP Pulse Ox 01/22/21 11:28 36.8 C 63 18 126/60 96 01/22/21 08:10 37.1 C 71 117 H 21 135/84 96 01/22/21 06:34 156/60 H 01/22/21 06:33 156/60 H 01/22/21 06:22 36.7 C Laboratory Results Laboratory Results - last 24 hr 01/21/21 01/21/21 01/21/21 15:50 15:50 17:10 WBC 8.98 RBC 4.02 L Hgb 9.3 L Hct 30.7 L MCV 76.4 L MCH 23.1 L MCHC 30.3 L RDW Std Deviation 51.0 H RDW Coeff of Dash 18.0 H Plt Count 341 MPV 10.4 Immature Gran % (Auto) 0.2 Neut % (Auto) 60.5 Lymph % (Auto) 27.6 [place] % (Auto) 8.1 Eos % (Auto) 2.9 Baso % (Auto) 0.7 Neut # (Auto) 5.43 Lymph # (Auto) 2.48 [place] # (Auto) 0.73 H Eos # (Auto) 0.26 Baso # (Auto) 0.06 Immature Gran # (Auto) 0.02 Absolute Nucleated RBC Nucleated RBC % (auto) Sodium 137 Potassium 4.6 Chloride 108 H Carbon Dioxide 23 Anion Gap 6.0 BUN 12 Creatinine 1.14 Est Cr Clr Drug Dosing 35.9 Est GFR ( Amer) 53.3 Est GFR (Non-Af Amer) 46.0 BUN/Creatinine Ratio 10.3 Glucose 127 H Calcium 8.8 Magnesium Iron TIBC Transferrin Transferrin % Sat Ferritin Troponin I 0.832 H* COVID-19 Eval Order Covid19 at [facility] SARS-CoV-2 (PCR) Blood Type Antibody Screen Crossmatch 01/21/21 01/21/21 01/21/21 17:10 18:45 23:07 WBC RBC Hgb 8.2 L Hct 27.3 L MCV MCH MCHC RDW Std Deviation RDW Coeff of Dash Plt Count MPV Immature Gran % (Auto) Neut % (Auto) Lymph % (Auto) [place] % (Auto) Eos % (Auto) Baso % (Auto) Neut # (Auto) Lymph # (Auto) [place] # (Auto) Eos # (Auto) Baso # (Auto) Immature Gran # (Auto) Absolute Nucleated RBC Nucleated RBC % (auto) Sodium Potassium Chloride Carbon Dioxide Anion Gap BUN Creatinine Est Cr Clr Drug Dosing Est GFR ( Amer) Est GFR (Non-Af Amer) BUN/Creatinine Ratio Glucose Calcium Magnesium Iron TIBC Transferrin Transferrin % Sat Ferritin Troponin I COVID-19 Eval Order SARS-CoV-2 (PCR) NEGATIVE Blood Type B Positive Antibody Screen NEGATIVE Crossmatch See Detail 01/21/21 01/22/21 01/22/21 23:07 04:24 04:24 WBC 8.22 RBC 3.68 L Hgb 8.4 L Hct 27.9 L MCV 75.8 L MCH 22.8 L MCHC 30.1 L RDW Std Deviation 50.3 H RDW Coeff of Dash 18.1 H Plt Count 287 MPV 9.9 Immature Gran % (Auto) Neut % (Auto) Lymph % (Auto) [place] % (Auto) Eos % (Auto) Baso % (Auto) Neut # (Auto) Lymph # (Auto) [place] # (Auto) Eos # (Auto) Baso # (Auto) Immature Gran # (Auto) Absolute Nucleated RBC 0.02 H Nucleated RBC % (auto) 0.2 Sodium 136 Potassium 4.6 Chloride 110 H Carbon Dioxide 21 Anion Gap 5.0 BUN 10 Creatinine 1.11 Est Cr Clr Drug Dosing 36.8 Est GFR ( Amer) 55.1 Est GFR (Non-Af Amer) 47.5 BUN/Creatinine Ratio 9.3 L Glucose 147 H Calcium 8.4 L Magnesium 2.3 Iron 25 L TIBC 519 H Transferrin 369 H Transferrin % Sat 5 L Ferritin 5.3 L Troponin I 0.597 H* COVID-19 Eval Order SARS-CoV-2 (PCR) Blood Type Antibody Screen Crossmatch (1) GI bleed GI bleed type/associated pathology: unspecified gastrointestinal hemorrhage type Qualified Code(s): K92.2 - Gastrointestinal hemorrhage, unspecified
[2021-01-22 14:58] LABS: Hematocrit (blood only) 26.6 % (37-47); Hemoglobin 8.2 g/dL (12.0-16.0)
--- NOTE | 2021-01-22 17:48 | Hospitalist Progress Note ---
Date of Service January 22, 2021 Assessment & Plan (1) Diverticulitis of sigmoid colon: (2) GI bleed: Plan: 80-year-old lady with past medical history of T2DM with PDN, COPD, CAD, HTN, paroxysmal A. fib on Eliquis, CKD stage IIIa, lumbosacral spondylosis/spinal stenosis of lumbar region on chronic ibuprofen twice a day who initially presented with complaint of shortness of breath and maroon colored stool for past 3 weeks on and left AMA and came back again for reevaluation of her condition 01/21. #. GI bleed/Diverticulitis h/o bleeding ulcer in 1960s, reports daily BID ibuprofen use, 2018 colonoscopy positive for sigmoid diverticulosis. c/o maroon colored stool since last 3 weeks and one large bright red BM prior to coming to ED on 01/20, has been progressively feeling week since the same time. s/p 1 unit PRBC in ED on 01/20 Hb at representation 9.3 (on 01/20 -- 7.4) Hb stable at 8.2 since then CTAP on 01/20 showed early signs of sigmoid diverticulitis. Pt has minimal to no pain in LLQ likely 2/2 APD 2/2 continued NSAIDs use Vs Diverticular bleed Vs both GI on board: ok for liq. diet, outpatient colonoscopy, C diff studies. C/w iv zosyn, holding eliquis, PPI BID, iv fluid, get CBC tomorrow AM #. Symptomatic Anemia Has had black tarry stool for 3 weeks, progressive weakness, MCV 72-75 Iron profile s/o REUBEN (Transferring Sat 5% and Ferritin store 5.3) Will start her on Iron therapy Hb Stable, will get CBC sonya AM and then reassess for frequency of Hb check #. Mild EDUARDO on CKD Cr at 1.27 at admission improved with IVF to baseline #. Paroxysmal Afib Holding eliquis, c/w beta laureano, stable #. CAD/ Elevated troponin Troponin flat trending at 0.5. Admitting ECG WNL likely demand ischemia Card aware. 01/22 ECHO EF 65-70% with mild concentric LVH c/w home meds. #. DM, T2 A1c of 7.9 on 12/13 on SSI under goal #. HTN Under goal, lisinopril currently held for concerns of possibility of hypotension on background of GI bleed Reasses daily for resuming of lisinopril. #. DVT Px SCDs, no heparin SC, eliquis held. GI bleed. Admission and Anticipated Discharge Date Admission Date: January 21, 2021 Subjective Patient was sitting up in bed, NAD, on RA. Patient denies Headache, Dizziness, Fever, Chills, Sore throat, Cough, Chest pain, palpitations, SOB, Belly pain, pain/burning while passing urine. No issues overnight. States palpitations with exertion. Per RN, she is doing good, no bloody bowel movement reported but she gets tachy with exertion. She had 7 BM over last 24 hours. Physical Exam Physical Exam: GENERAL: Alert and oriented x3. NAD, on RA. HEENT: No pallor, no icterus. Pupils equal, round and reactive to light. Oral mucosa moist. NECK: No JVD, no neck masses. HEART: S1 and S2 heard. Regular rate and rhythm. No murmur, no gallop. RESPIRATORY SYSTEM: Normal AP diameter. No accessory muscle use. No wheezing, no crackles. ABDOMEN: Soft, bowel sounds present, nontender, no distention. CENTRAL NERVOUS SYSTEM: Alert and oriented x3. No facial droop. Speech is clear. Obeys simple commands. Moves extremities. EXTREMITIES: No edema, no erythema seen. Results & Data Results & Data ([facility]) Vital Signs (Past 12 Hours) Vital Signs Temp Pulse Pulse Resp BP BP Pulse Ox 01/22/21 15:34 60 01/22/21 15:27 37.0 C 88 18 137/72 95 01/22/21 11:28 36.8 C 63 18 126/60 96 01/22/21 08:10 37.1 C 71 117 H 21 135/84 96 01/22/21 06:34 156/60 H 01/22/21 06:33 156/60 H 01/22/21 06:22 36.7 C (1) GI bleed GI bleed type/associated pathology: unspecified gastrointestinal hemorrhage type Qualified Code(s): K92.2 - Gastrointestinal hemorrhage, unspecified
[2021-01-22] MEDS ORDERED: CARBOHYDRATES FOR HYPOGLYCEMIA PO PRN (18:18)
[2021-01-22] MEDS ORDERED: DEXTROSE 50% 50 ML SYRINGE IV PRN (18:18)
[2021-01-22] MEDS ORDERED: GLUCAGON FOR INJ 1 MG VIAL SQ PRN (18:18)
[2021-01-22] MEDS ORDERED: GLUCOSE 40% GEL 15 GM TUBE PO PRN (18:18)
[2021-01-22] MEDS ORDERED: GLUCOSE 10 TABS/TUBE PO PRN (18:18)
[2021-01-22] MEDS: traZODone HCL 50 MG TAB PO SCH (20:58)
[2021-01-22] MEDS ORDERED: INSULIN GLARGINE SOLOSTAR 100 UNITS/ML 3 ML PEN SC SCH (21:00)
[2021-01-22] MEDS: INSULIN ASPART 100 UNITS/ML 3 ML PEN SC SCH (21:03)
[2021-01-22 23:08] LABS: Hematocrit (blood only) 27.7 % (37-47); Hemoglobin 8.3 g/dL (12.0-16.0)
[2021-01-23] MEDS: SODIUM CHLORIDE 0.45 % 1,000 ML IV SCH (03:36)
[2021-01-23] MEDS: PIPERACILLIN/TAZOBACTAM 3.375 GM in DEXTROSE 5% 100 ML IV SCH (06:18)
[2021-01-23 06:27] LABS: Hemoglobin 8.4 g/dL (12.0-16.0); Mean Corpuscular Hemoglobin 23.3 pg (25-34); Mean Corpuscular Volume 77.8 fL (80-100); Mean Platelet Volume 10.4 fL (7.4-10.4); Platelet Count 299 K/uL (130-400); RDW Coefficient of Variation 18.2 % (11.5-14.5); RDW Standard Deviation 51.6 fL (36.4-46.3); White Blood Count 7.74 K/uL (4.8-10.8)
[2021-01-23] MEDS: INSULIN ASPART 100 UNITS/ML 3 ML PEN SC SCH (08:18)
[2021-01-23] MEDS: OXYBUTYNIN CHLORIDE XL 5 MG TABCR PO SCH (08:54)
[2021-01-23] MEDS: ATORVASTATIN 40 MG TAB PO SCH (08:54)
[2021-01-23] MEDS: SERTRALINE HCL 50 MG TABLET PO SCH (08:54)
[2021-01-23] MEDS: GABAPENTIN 800 MG TAB PO SCH (08:54)
[2021-01-23] MEDS: METOPROLOL TARTRATE 50 MG TAB PO SCH (08:54)
[2021-01-23] MEDS: FOLIC ACID 1 MG TAB PO SCH (08:54)
[2021-01-23] MEDS: PANTOprazole 40 MG in SYRINGE 0 ML IV SCH (08:55)
[2021-01-23] MEDS ORDERED: FERROUS SULFATE 325 MG TAB PO SCH (09:00)
--- NOTE | 2021-01-23 09:18 | Electrocardiogram Report ---
Test Reason : Blood Pressure : / mmHG Vent. Rate : 058 BPM Atrial Rate : 058 BPM P-R Int : 156 ms QRS Dur : 092 ms QT Int : 478 ms P-R-T Axes : 057 -13 167 degrees QTc Int : 469 ms Sinus bradycardia Left ventricular hypertrophy with repolarization abnormality Abnormal ECG When compared with ECG of 20-JAN-2021 18:28, Premature atrial complexes are no longer Present Vent. rate has decreased BY 33 BPM QRS duration has increased Voltage markedly increased and repolarization abnormalities now present Confirmed by Jae Molina ([id number]) on 01/23/2021 9:18:38 AM Referred By: REFERRED SELF Confirmed By:Jae Molina
--- NOTE | 2021-01-23 09:47 | Electrocardiogram Report ---
Test Reason : Blood Pressure : / mmHG Vent. Rate : 062 BPM Atrial Rate : 062 BPM P-R Int : 148 ms QRS Dur : 070 ms QT Int : 378 ms P-R-T Axes : 055 029 030 degrees QTc Int : 383 ms Normal sinus rhythm with occasional Premature atrial complexes Nonspecific T wave abnormality Septal leads When compared with ECG of 22-JAN-2021 03:55, Premature atrial complexes are no longer Present Confirmed by Jae Molina ([id number]) on 01/23/2021 9:46:51 AM Referred By: REFERRED SELF Confirmed By:Jae Molina
--- NOTE | 2021-01-23 11:34 | Cardiology Progress Note ---
Date of Service January 23, 2021 Assessment & Plan (1) GI bleed: (2) Symptomatic anemia: (3) Elevated troponin: (4) Diverticulitis of sigmoid colon: (5) CAD (coronary artery disease): (6) Paroxysmal atrial fibrillation: Plan: Patient is a 80-year-old female with cardiac issues as outlined including chronic stable ischemic heart disease, paroxysmal atrial fibrillation, labile hypertension. Patient presents with evidence of GI bleeding acute on chronic possible acute diverticulitis with symptomatic complaints of abdominal pain and discomfort. Patient required 1 unit transfusion Troponins are elevated noted on admission. No evidence of acute ischemia by EKG or echocardiogram and likely reflects demand based ischemia secondary to anemia and stressors of current acute illness. Short runs of paroxysmal atrial tachycardia noted on monitor since admission but no atrial fibrillation. No further bleeding since admission and patient insisting on discharge today. Would recommend holding Eliquis until GI evaluation complete. Hold aspirin x1 week. Patient has appoint with cardiology on 02/11/2021 Admission and Anticipated Discharge Date Admission Date: January 21, 2021 Subjective Patient was seen and examined, chart, medications, telemetry reviewed. Patient without acute cardiac complaints notes abdominal discomfort has improved. No further observed bleeding. She is insisting on discharge today Telemetry revealed short runs of atrial tachycardia prior evening none today. No atrial fibrillation since admission. No fevers or chills. No chest pain or discomfort. Review of Systems Review of Systems: All systems reviewed & are unremarkable except as noted in Subjective Physical Exam Constitutional: WD/WN, vitals as above + ill appearing Eyes: PERRL, conjunctivae normal, anicteric sclerae ENMT: external ear and nose normal, oropharynx normal Neck: trachea midline, no thyromegaly Respiratory: normal respiratory effort, lungs clear to auscultation Cardiovascular: Rate/Rhythm: regular rate and regular rhythm Heart Sounds: normal S1 and normal S2; no gallop and no murmur Palpation: normal PMI Vessels: normal carotid upstroke and radial pulses present; no JVD and no carotid bruit Extremities: no edema Gastrointestinal (Abdomen): normal bowel sounds, soft, nontender, no hepatosplenomegaly Percussion/Palpation: abdomen nontender, no guarding and abdomen not rigid Musculoskeletal: no cyanosis or clubbing, extremities motor strength 5/5 Skin: no rashes, warm and dry Neurologic: PERRL, EOMI, accommodation nl, no face palsy, no dysarthria Psychiatric: A+Ox3, euthymic affect Results & Data ([facility]) Vital Signs (Past 12 Hours) Vital Signs Temp Pulse Pulse Resp BP Pulse Ox 01/23/21 09:52 36.9 C 63 16 149/83 H 97 01/23/21 07:31 36.9 C 63 16 149/83 H 97 01/23/21 07:21 58 L 01/23/21 03:36 36.7 C 65 18 122/75 98 Laboratory Results Laboratory Results - last 24 hr 01/22/21 01/22/21 01/22/21 14:44 20:53 22:50 WBC RBC Hgb 8.2 L Hct 26.6 L MCV MCH MCHC RDW Std Deviation RDW Coeff of Dash Plt Count MPV POC Glucose 206 H Stl C. diff Tox B Gene Negative Cdiff Gene 01/22/21 01/23/21 22:51 05:44 WBC 7.74 RBC 3.60 L Hgb 8.3 L 8.4 L Hct 27.7 L 28.0 L MCV 77.8 L MCH 23.3 L MCHC 30.0 L RDW Std Deviation 51.6 H RDW Coeff of Dash 18.2 H Plt Count 299 MPV 10.4 POC Glucose Stl C. diff Tox B Gene (1) GI bleed GI bleed type/associated pathology: unspecified gastrointestinal hemorrhage type Qualified Code(s): K92.2 - Gastrointestinal hemorrhage, unspecified
--- NOTE | 2021-01-23 18:27 | Discharge Summary ---
Date of Service January 23, 2021 Admission HPI Per Admitting Provider 80-year-old female with PMH DM type II, COPD, CAD, paroxysmal atrial fibrillation anticoagulated on Eliquis, HTN, CKD stage III, and other problems listed below who presents to the ED after signing out AMA last evening for GI bleeding and symptomatic anemia. Patient reports over the past few weeks, she has been having increasing shortness of breath with minimal exertion. She also has been having maroon-colored stools for the past 3 weeks as well. Patient was seen in the ED last evening and found to have hemoglobin 7.4. Patient received [address] ABD/pelvis showed a possible early sigmoid diverticulitis. Patient signed out AMA because she had to get her car to her . She returned back to the ED today for reevaluation. Patient reports she noted bright red bleeding per rectum today. She also has developed LLQ abdominal tenderness. She denies fevers and chills. No chest pain or shortness of breath. Denies lightheadedness, dizziness, diaphoresis, syncopal events. No urinary symptoms. Patient reports taking ibuprofen twice daily for the past several years. Also reports a history of a bleeding ulcer in the 1960s. In the ED today, Hgb 9.3. WBC 8K, afebrile. Patient was given Protonix 40 mg p.o., IV Zosyn, IVF. Admission Exam Per Admitting Provider GENERAL: Alert and oriented x3. NAD, on RA. HEENT: No pallor, no icterus. Pupils equal, round and reactive to light. Oral mucosa moist. NECK: No JVD, no neck masses. HEART: S1 and S2 heard. Regular rate and rhythm. No murmur, no gallop. RESPIRATORY SYSTEM: Normal AP diameter. No accessory muscle use. No wheezing, no crackles. ABDOMEN: Soft, bowel sounds present, Mild LLQ tenderness, no distention. CENTRAL NERVOUS SYSTEM: Alert and oriented x3. No facial droop. Speech is clear. Obeys simple commands. Moves extremities. EXTREMITIES: No edema, no erythema seen. Principal Diagnosis UGI Vs LGI bleed Diverticulitis Symptomatic anemia Discharge Exam GENERAL: Alert and oriented x3. NAD, on RA. HEENT: No pallor, no icterus. Pupils equal, round and reactive to light. Oral mucosa moist. NECK: No JVD, no neck masses. HEART: S1 and S2 heard. Regular rate and rhythm. No murmur, no gallop. RESPIRATORY SYSTEM: Normal AP diameter. No accessory muscle use. No wheezing, no crackles. ABDOMEN: Soft, bowel sounds present, nontender, no distention. CENTRAL NERVOUS SYSTEM: Alert and oriented x3. No facial droop. Speech is clear. Obeys simple commands. Moves extremities. EXTREMITIES: No edema, no erythema seen. Discharge Data Allergies Allergy/AdvReac Type Severity Reaction Status Date / Time codeine Allergy Mild SICK Verified 01/20/21 19:01 propoxyphene Allergy Mild SICK Verified 01/20/21 19:01 BEE STING Allergy Severe Anaphylaxis Uncoded 01/20/21 19:01 Consultations 01/21/21 17:22 ED Decision to Admit Stat 01/21/21 20:27 Consult Cardiology Routine Consult Gastroenterology Routine Hospital Course (1) Diverticulitis of sigmoid colon: (2) GI bleed: 80-year-old lady with past medical history of T2DM with PDN, COPD, CAD, HTN, paroxysmal A. fib on Eliquis, CKD stage IIIa, lumbosacral spondylosis/spinal stenosis of lumbar region on chronic ibuprofen twice a day who initially presented with complaint of shortness of breath and maroon colored stool for past 3 weeks on and left AMA and came back again for reevaluation of her condition 01/21. #. GI bleed/Diverticulitis h/o bleeding ulcer in 1960s, reports daily BID ibuprofen use, 2019 colonoscopy positive for sigmoid diverticulosis. c/o maroon colored stool since last 3 weeks and one large bright red BM prior to coming to ED on 01/20, has been progressively feeling week since the same time. s/p 1 unit PRBC in ED on 01/20 Hb at representation 9.3 (on 01/20 -- 7.4) Hb stable at 8.2 since then CTAP on 01/20 showed early signs of sigmoid diverticulitis. Pt has minimal to no pain in LLQ likely 2/2 APD 2/2 continued NSAIDs use Vs Diverticular bleed Vs both No further bloody BM while Inpatient. Since pt was getting ,wanted to go today. GI and Cardio reached out for their recommendation: they were ok with DC per their POV. Pt needs GI f/u in 4-6 weeks' time for Outpt colonoscopy. Pt has cardio f/u on 02/11 per cardio note. Pt tolerated diet ok while inpatient; c/w prescribed ATB, avoid aspirin x 1 week and eliquis until GI evaluation. #. Symptomatic Anemia Has had black tarry stool for 3 weeks, progressive weakness, MCV 72-75 Iron profile s/o REUBEN (Transferring Sat 5% and Ferritin store 5.3) Started on iron therapy, expected to maintian upon discharge Hb Stable while inpatient #. Mild EDUARDO on CKD Cr at 1.27 at admission improved with IVF to baseline #. Paroxysmal Afib Holding eliquis, c/w beta laureano, stable #. CAD/ Elevated troponin Troponin flat trending at 0.5. Admitting ECG WNL likely demand ischemia Card aware. 01/22 ECHO EF 65-70% with mild concentric LVH Had runs of PATs noted on monitor since admission but no Afib. They were less frequent last night and none in the AM. c/w home meds. F/u with outpatient cardiology. #. DM, T2 A1c of 7.9 on 12/13 on SSI under goal #. HTN Under goal, lisinopril currently held for concerns of possibility of hypotension on background of GI bleed Reasses daily for resuming of lisinopril. #. DVT Px SCDs, no heparin SC, eliquis held. GI bleed. Following messages were communicated upon discharge: Take your iron tablet with meals, twice a day as prescribed Follow up with your PCP in a week's time. Follow up with your GI doctor with in 4-6 week's for setting up outpatient colonoscopy. Your blood thinner (eliquis and aspirin) has been held because of bleeding. Do not take it. Have your PCP reassess in a week's time for further recommendation on it. Generally, it is recommended to stop aspirin atleast for next 7 days and eliquis atleast for next 30 days and then have your doctor evaluate you for resuming them. F/U with your heart doctor. Do not take Ibuprofen or other NSAIDs. Use tylenol instead. NSAIDs increases the chance of GI bleeding. Total Time Total Time Spent Total Time Spent (In Minutes): 45 Discharge Plan Discharge Items Patient Disposition: Home - Self-Care Reason For Visit: GI BLEED, DIVERTICULITIS Discharge Diagnosis: UGI Vs LGI bleed Diverticulitis Symptomatic anemia Condition on Discharge: Fair Activity: Resume your previous activity Non-emergency contact: Primary Care Provider Call non-emergency contact if: you have any medication questions Follow-up/Referrals: Amparo Rich DO [Primary Care Provider] - Diet: Heart Healthy Addtl Attending Provider Instructions: Take your iron tablet with meals, twice a day as prescribed Follow up with your PCP in a week's time. Follow up with your GI doctor with in 4-6 week's for setting up outpatient colonoscopy. Your blood thinner (eliquis and aspirin) has been held because of bleeding. Do not take it. Have your PCP reassess in a week's time for further recommendation on it. Generally, it is recommended to stop aspirin atleast for next 7 days and eliquis atleast for next 30 days and then have your doctor evaluate you for resuming them. F/u with your heart doctor. Do not take Ibuprofen or other NSAIDs. Use tylenol instead. NSAIDs increases the chance of GI bleeding. Pending Studies at Discharge: No Stand-Alone Forms: My [facility] [employer], Smoking Cessation Medications and DC Order Prescriptions: New pantoprazole 40 mg tablet,delayed release (DR/EC) 40 mg PO BID 14 Days Qty: 28 RF: 0 folic acid 1 mg Tablet 1 mg PO QAM 30 Days Qty: 30 RF: 0 metronidazole 500 mg tablet 500 mg PO TID 7 Days Qty: 21 RF: 0 ciprofloxacin HCl 500 mg tablet 500 mg PO BID 7 Days Qty: 14 RF: 0 ferrous sulfate 325 mg (65 mg iron) Tablet,Delayed Release (Dr/Ec) 325 mg PO Q12 30 Days Qty: 60 RF: 0 Continued gabapentin 800 mg Tablet 800 mg PO DAILY RF: 0 cyanocobalamin (vitamin B-12) 1,000 mcg Tablet 1,000 mcg PO QAM RF: 0 lisinopril 10 mg Tablet 10 mg PO QAM RF: 0 metoprolol tartrate 25 mg Tablet 50 mg PO BID RF: 0 metformin 500 mg tablet 500 mg PO BID RF: 0 atorvastatin 80 mg Tablet 80 mg PO DAILY RF: 0 trazodone 50 mg tablet 50 mg PO HS RF: 0 oxybutynin chloride 5 mg tablet extended release 24hr 5 mg PO DAILY RF: 0 sertraline 25 mg tablet 25 mg PO DAILY RF: 0 Jardiance 25 mg tablet 25 mg PO DAILY RF: 0 acetaminophen [Tylenol] 325 mg Tablet 650 mg PO HS RF: 0 Discontinued Eliquis 5 mg Tablet 5 mg PO BID RF: 0 aspirin 81 mg Tablet,Delayed Release (Dr/Ec) 81 mg PO QAM RF: 0 omeprazole 20 mg Tablet,Delayed Release (Dr/Ec) 20 mg PO QAM RF: 0 Discharge Orders: Discharge Order (Routine); Ordered 01/23/21 Ordered By: Levi Fragoso Admission Data Admit Date/Time: 01/21/21 17:57 Attending Provider: Levi Fragoso Admit Provider: Levi Fragoso Primary Care Provider: Amparo Rich Other Providers: Levi Fragoso ; Abhijeet Rich Brandon M. Other Interventions: Discharge Summary Assessment (RN) Last Done: 01/23/21 09:52
== END 2021-01-23 10:11 | disposition home or self-care (01) ==
LOC: ED 12:53 → INTOOBSV 17:57 → 1E 17:57 → 2S 01-22 06:01

== ENCOUNTER 2023-03-06 17:36 | Observation (INO) ==
--- NOTE | 2023-03-06 18:01 | ED Triage Note ---
Date of Service March 06, 2023 History of Present Illness This patient was briefly evaluated while in triage. An abbreviated physical exam was performed. This patient is a 82-year-old Female who presents to the ED for evaluation of cough. She saw her PCP at [facility] last week and was given Zithromax and Amoxicillin. Per patient, they told her if she didn't get any better, she should go to the ER. She is getting intermittent chest pain along with SOB and continued cough. No fevers. Denies abdominal pain, nausea, or vomiting. She states that she just feels like she isn't getting better. They did not do a CXR or other testing through her PCP. She has a history of A-fib per patient. Denies any symptoms of her A-fib at this time. Physical Exam GENERAL: Non-toxic and in no acute distress. HEENT: Pupils equal. No obvious scleral icterus. HEART: Irregularly irregular rhythm with rapid rate. LUNGS: Clear to auscultation. No accessory muscle use. ABDOMEN: Soft, nontender to palpation. NEURO: Alert and oriented. No obvious neurological deficits on quick neuro exam. Initial orders for labs and / or imaging were placed and patient was placed in the waiting area until a bed is available. Please see further documentation for the full ED course.
--- NOTE | 2023-03-06 18:16 | XRay Report ---
XR chest 1V not portable HISTORY: Cough. Shortness of breath. COMPARISON: Chest 01/20/2021. FINDINGS: No pneumothorax. No pleural effusions. The cardiac silhouette is mildly enlarged. There is mild central pulmonary vascular congestion without overt edema. No new focal lung consolidations to s uggest a pneumonia. Calcifications within the aortic knob. No acute fractures identified. Metallic an chor is again noted within the right humeral head. IMPRESSION: Cardiomegaly and mild central pulmonary vascular congestion without overt edema. ACT 112: Negative or not required by law. Electronically signed by: Kevin Barraza M.D. 03/06/2023 6:14 PM
[2023-03-06] MEDS ORDERED: methylPREDNISolone 125 MG/2 ML VIAL IV STA (19:01)
[2023-03-06] MEDS ORDERED: dilTIAZem HCl 5 MG/ML 5 ML VIAL IV STA (19:01)
[2023-03-06] MEDS ORDERED: STAT IV Infusion **Titration per Protocol STA (19:01)
[2023-03-06] MEDS ORDERED: ALBUT/IPRATROP 3MG/0.5MG NEB 3 ML VIAL NEB STA (19:01)
[2023-03-06 19:02] LABS: Albumin Globulin Ratio 1.2 (0.9-2); Albumin Level 3.8 gm/dl (3.4-5.0); BUN Creatinine Ratio 8.8 (10-20); Bilirubin,Total 0.6 mg/dl (0.2-1.0); Calcium 9.2 mg/dl (8.6-10.3); Creatinine Clr Calc Pharmacy 41.8 ml/min; Est GFR (African American) 69.1 ml/min; Est GFR (Non-African American) 59.6 ml/min; Globulin 3.3 gm/dl (2.5-4.0); Potassium 3.5 mmol/L (3.5-5.1); Total Protein 7.1 gm/dl (6.0-8.3)
--- NOTE | 2023-03-06 19:06 | Emergency Department Note ---
Impression & Plan Atrial flutter with rapid ventricular response, Flu-like symptoms, SOB (shortness of breath), Failure of outpatient treatment, Wheezing ED Provider Note NAME: JAKE HAYES AGE: 82 SEX: F : 1940 ARRIVES VIA: Walk-In INFORMANT: [Patient] ED PROVIDER(S): [Dario Xiao MD] CHIEF COMPLAINT: Cough HISTORY OF PRESENT ILLNESS: The patient is an 82-year-old female who states that she has had 6 days of symptoms. She has had some congestion, subtle cough and some shortness of breath. No fever, no chest pain. The patient saw her doctor's office 4 days ago and was prescribed a Zithromax and amoxicillin. She was told to go to the ER if not feeling better. As she was not feeling better, she presents for evaluation. The patient has not had nausea or vomiting. No known sick contacts. She denies any underlying lung disease. She is not on any blood thinning agents. In triage, the patient was noted to be tachycardic. She was brought back for evaluation PMHx/PSHx: See Below SOCIAL HISTORY: See Below. PHYSICAL EXAM: GENERAL: Patient is in no acute distress. HEENT: No acute trauma, normocephalic atraumatic, mucous membranes moist, no nasal congestion. NECK: No stridor, no adenopathy, no meningismus, trachea is midline. LUNGS: A few scattered wheezes heard, no rhonchi, no respiratory distress. Breath sounds equal but somewhat diminished bilaterally. HEART: Tachycardic and irregular, no murmurs. ABDOMEN: Soft, nontender, bowel sounds positive, no peritonitis. EXTREMITIES: No cyanosis or edema, full range of motion of all the joints without pain or difficulty, no signs for acute trauma. NEUROLOGIC: Oriented x 3, no acute motor or sensory deficits, no focal weakness. SKIN: No rash, no jaundice, no diaphoresis. DIFFERENTIAL DIAGNOSIS: Bronchitis or pneumonia, CHF, anemia, electrolyte imbalance, dysrhythmia, COVID- 19, ME, among others. EMERGENCY DEPARTMENT COURSE/PROCEDURES: Prior/Outside records reviewed: Previous discharge summary. ECG per my interpretation: Indication was tachycardia. The ECG shows what appears to be atrial flutter with a rate of 116. There is a rapid ventricular response. There is no ST elevation, no PVCs. The QTc is 414. Continuous Cardiac Monitoring per my interpretation: An order was placed for continuous cardiac monitoring. The monitor shows a rate of 125 with atrial flutter. Critical Care Note: I have personally spent 53 minutes of critical care time in the direct management of this patient. This includes bedside care, interpretation of diagnostic studies, and testing, discussion with consultants, patient, and family members, and other required patient management activities. This 53 minutes is in excess of all separately billable procedures. MEDICAL DECISION MAKING: There is no leukocytosis or concerning anemia. There is a normal platelet count. No coagulopathy. No renal failure. Initial glucose was adequate at 165. There was no concerning liver enzyme elevation. The patient appeared to be in a euthyroid state. ECG shows what appears to be atrial flutter versus potential A-fib. No ST elevation. Cardiac enzyme testing x1 is not consistent with acute cardiac injury. Respiratory bio fire was completely negative. Chest film per my review showed some subtle fluid overload, no pneumonia or pneumothorax. On exam, the patient was wheezing. She was not hypoxic or febrile. She was tachycardic. The patient was given an IV diltiazem bolus and placed on a diltiazem drip. She received IV Solu-Medrol and a DuoNeb. The patient is in need of a hospital stay. She has failed outpatient management. She now appears to be in atrial flutter with a rapid rate. She was wheezing on exam. I did speak with the patient at length, I spoke with case management. The on- call hospitalist was consulted. DISPOSITION: Patient's presentation and findings warrant a hospital stay. Past Med/Surg History Medical History CAD (coronary artery disease) S/p PCI with BMS to D1 in 2011 COPD (chronic obstructive pulmonary disease) Per records Diabetes mellitus, type 2 GERD (gastroesophageal reflux disease) History of kidney stones Hyperlipidemia Hypertension Nocturnal hypoxemia Per records Obesity Osteoarthritis Paroxysmal atrial fibrillation PUD (peptic ulcer disease) Smoker Surgical History History of cataract surgery RT/LEFT History of colonoscopy History of cystoscopy History of heart artery stent 1 STENT PLACED to D1 in 2011 History of hysterectomy History of repair of rotator cuff RT History of tonsillectomy and adenoidectomy History of tooth extraction Family History Son Family history of diabetes mellitus Other No family history of adverse response to anesthesia Social History Smoking Status: Current every day smoker Tobacco Type: Cigarettes Cigarettes Per Day: 20 PER DAY; Second Hand Exposure: Yes (HUSBANDS SMOKE); Do You Dip or Chew Tobacco: No; Hx Alcohol Use: No Hx Substance Use: No Preferred Language: Panamanian Communication Ability: Effective Bell Maker Required: No Beliefs That Will Affect Care: None Current Living Situation: Alone Other Information That Helps Us Care for You: No Feels Safe at Home: Yes Safety Concerns: Feels Safe At This Time Assistive Devices: Cane, Denture - Upper and Walker Allergies Allergies Allergy/AdvReac Type Severity Reaction Status Date / Time codeine Allergy Mild SICK Verified 03/06/23 19:18 propoxyphene Allergy Mild SICK Verified 03/06/23 19:18 BEE STING Allergy Severe Anaphylaxis Uncoded 03/06/23 19:18 Home Meds Home Medications Medication Instructions Recorded Confirmed cyanocobalamin (vitamin B-12) 1,000 mcg PO QAM 10/07/20 03/06/23 1,000 mcg tablet gabapentin 800 mg tablet 800 mg PO QAM 10/07/20 03/06/23 lisinopril 10 mg tablet 10 mg PO QAM 10/07/20 03/06/23 metoprolol tartrate 25 mg tablet 50 mg PO BID 10/07/20 03/06/23 acetaminophen 325 mg tablet 650 mg PO HS 01/20/21 03/06/23 (Tylenol) atorvastatin 80 mg tablet 80 mg PO PM 01/21/21 03/06/23 empagliflozin 25 mg tablet 25 mg PO QAM 01/21/21 03/06/23 (Jardiance) metformin 500 mg tablet 500 mg PO BID 01/21/21 03/06/23 oxybutynin chloride 5 mg 5 mg PO QAM 01/21/21 03/06/23 tablet,extended release 24 hr sertraline 25 mg tablet 25 mg PO QAM 01/21/21 03/06/23 trazodone 50 mg tablet 50 mg PO HS 01/21/21 03/06/23 folic acid 1 mg tablet 1 mg PO QAM 03/06/23 03/06/23 Results & Data (ED) Vital Signs Vital Signs - 24 hr 03/06/23 17:58 03/06/23 19:17 03/06/23 19:17 Temperature 36.6 C Temperature Source Temporal Artery Scan Pulse Rate 140 H 149 H Pulse Rate from SpO2 Sensor 134 H Respiratory Rate 18 27 H Respiratory Effort / Characteristics Non-Labored Spontaneous Respiratory Depth Normal Blood Pressure 161/115 H 171/135 H Blood Pressure Mean 130 147 Pulse Oximetry 95 96 Oxygen Delivery Method Room Air Room Air Sepsis Recent Fever Within 48 Hours No Sepsis New/Unexplained Change in Mental Status No Sepsis Action Taken by Nursing No Action Required 03/06/23 19:20 03/06/23 20:40 03/06/23 19:30 Temperature Temperature Source Pulse Rate 125 H 108 H 118 H Pulse Rate from SpO2 Sensor 126 H Respiratory Rate 27 H 24 Respiratory Effort / Characteristics Respiratory Depth Blood Pressure 171/130 H Blood Pressure Mean Pulse Oximetry 96 Oxygen Delivery Method Room Air Sepsis Recent Fever Within 48 Hours Sepsis New/Unexplained Change in Mental Status Sepsis Action Taken by Nursing 03/06/23 19:40 03/06/23 19:50 03/06/23 20:00 Temperature Temperature Source Pulse Rate 123 H 109 H 94 H Pulse Rate from SpO2 Sensor Respiratory Rate 22 Respiratory Effort / Characteristics Respiratory Depth Blood Pressure Blood Pressure Mean Pulse Oximetry Oxygen Delivery Method Sepsis Recent Fever Within 48 Hours Sepsis New/Unexplained Change in Mental Status Sepsis Action Taken by Nursing 03/06/23 20:10 03/06/23 20:20 03/06/23 20:30 Temperature Temperature Source Pulse Rate 96 H 91 H 136 H Pulse Rate from SpO2 Sensor Respiratory Rate 21 22 15 Respiratory Effort / Characteristics Respiratory Depth Blood Pressure Blood Pressure Mean Pulse Oximetry Oxygen Delivery Method Sepsis Recent Fever Within 48 Hours Sepsis New/Unexplained Change in Mental Status Sepsis Action Taken by Nursing 03/06/23 20:40 03/06/23 20:40 03/06/23 20:40 Temperature Temperature Source Pulse Rate 111 H 111 H Pulse Rate from SpO2 Sensor Respiratory Rate Respiratory Effort / Characteristics Respiratory Depth Blood Pressure 147/118 H 147/118 H Blood Pressure Mean 127 Pulse Oximetry Oxygen Delivery Method Sepsis Recent Fever Within 48 Hours Sepsis New/Unexplained Change in Mental Status Sepsis Action Taken by Detention Medications Current Medication List: was personally reviewed by me Laboratory Data Attestation: I reviewed the patient's lab results. 03/06/23 18:18 03/06/23 18:18 Lab Results 03/06/23 03/06/23 03/06/23 Range/Units 18:00 18:18 18:18 WBC 8.78 (4.8-10.8) K/ul RBC 5.25 (4.20-5.40) M/uL Hgb 14.5 (12.0-16.0) g/dl Hct 44.1 (37.0-47.0) % MCV 84.0 (80.0-100.0) fL MCH 27.6 (25.0-34.0) pg MCHC 32.9 (32.0-36.0) g/dL RDW Std Deviation 39.8 (36.4-46.3) fL RDW Coeff of Dash 13.1 (11.5-14.5) % Plt Count 272 (130-400) K/uL MPV 10.5 (9.4-12.4) fL Immature Gran % (Auto) 0.2 % Neut % (Auto) 50.2 % Lymph % (Auto) 27.0 % [place] % (Auto) 5.6 % Eos % (Auto) 15.9 % Baso % (Auto) 1.1 % Neut # (Auto) 4.40 (1.40-6.50) K/uL Lymph # (Auto) 2.37 (1.20-3.40) K/uL [place] # (Auto) 0.49 (0.11-0.59) K/uL Eos # (Auto) 1.40 H (0.00-0.50) K/uL Baso # (Auto) 0.10 (0.00-0.20) K/uL Immature Gran # (Auto) 0.02 (0.01-0.20) K/uL PT (9.0-12.0) Seconds INR (0.9-1.1) APTT (21.0-31.0) Seconds PTT Ratio Sodium 136 (136-145) mmol/L Potassium 3.5 (3.5-5.1) mmol/L Chloride 104 (98-107) mmol/L Carbon Dioxide 26 (21-32) mmol/L Anion Gap 6 (3-11) BUN 8 (6-23) mg/dl Creatinine 0.91 (0.6-1.2) mg/dl Est Cr Clr Drug Dosing 41.8 ml/min Est GFR ( Amer) 69.1 ml/min Est GFR (Non-Af Amer) 59.6 ml/min BUN/Creatinine Ratio 8.8 L (10-20) Glucose 165 H (70-99(Fasting)) mg/dl Calcium 9.2 (8.6-10.3) mg/dl Magnesium 2.0 (1.7-2.4) mg/dl Total Bilirubin 0.6 (0.2-1.0) mg/dl AST 15 (13-39) U/L ALT 11 (7-52) U/L Alkaline Phosphatase 64 (34-104) U/L Troponin I High Sens 7.2 (0-14) pg/ml B-Natriuretic Peptide (0-100) pg/ml Total Protein 7.1 (6.0-8.3) gm/dl Albumin 3.8 (3.4-5.0) gm/dl Globulin 3.3 (2.5-4.0) gm/dl Albumin/Globulin Ratio 1.2 (0.9-2) TSH (0.300-4.500) uIu/ml Adenovirus (PCR) Not Detected (NotDetected) B. pertussis DNA (PCR) Not Detected (NotDetected) B.parapertussis DNA PCR Not Detected (NotDetected) C. pneumoniae DNA (PCR) Not Detected (NotDetected) Coronavirus OC43 (PCR) Not Detected (NotDetected) Coronavirus HKU1 (PCR) Not Detected (NotDetected) Coronavirus 229E (PCR) Not Detected (NotDetected) SARS-CoV-2 (PCR) Not Detected (NotDetected) Coronavirus NL63 (PCR) Not Detected (NotDetected) Human Metapneumovir PCR Not Detected (NotDetected) Influenza Type A (PCR) Not Detected (NotDetected) Influenza Type B (PCR) Not Detected (NotDetected) M. pneumoniae (PCR) Not Detected (NotDetected) Parainfluenza 1 (PCR) Not Detected (NotDetected) Parainfluenza 2 (PCR) Not Detected (NotDetected) Parainfluenza 3 (PCR) Not Detected (NotDetected) Parainfluenza 4 (PCR) Not Detected (NotDetected) RSV (PCR) Not Detected (NotDetected) Entero/Rhino (PCR) Not Detected (NotDetected) 03/06/23 03/06/23 03/06/23 Range/Units 18:18 18:18 21:29 WBC (4.8-10.8) K/ul RBC (4.20-5.40) M/uL Hgb (12.0-16.0) g/dl Hct (37.0-47.0) % MCV (80.0-100.0) fL MCH (25.0-34.0) pg MCHC (32.0-36.0) g/dL RDW Std Deviation (36.4-46.3) fL RDW Coeff of Dash (11.5-14.5) % Plt Count (130-400) K/uL MPV (9.4-12.4) fL Immature Gran % (Auto) % Neut % (Auto) % Lymph % (Auto) % [place] % (Auto) % Eos % (Auto) % Baso % (Auto) % Neut # (Auto) (1.40-6.50) K/uL Lymph # (Auto) (1.20-3.40) K/uL [place] # (Auto) (0.11-0.59) K/uL Eos # (Auto) (0.00-0.50) K/uL Baso # (Auto) (0.00-0.20) K/uL Immature Gran # (Auto) (0.01-0.20) K/uL PT 11.5 (9.0-12.0) Seconds INR 1.1 (0.9-1.1) APTT 22.9 (21.0-31.0) Seconds PTT Ratio 0.8 Sodium (136-145) mmol/L Potassium (3.5-5.1) mmol/L Chloride (98-107) mmol/L Carbon Dioxide (21-32) mmol/L Anion Gap (3-11) BUN (6-23) mg/dl Creatinine (0.6-1.2) mg/dl Est Cr Clr Drug Dosing ml/min Est GFR ( Amer) ml/min Est GFR (Non-Af Amer) ml/min BUN/Creatinine Ratio (10-20) Glucose (70-99(Fasting)) mg/dl Calcium (8.6-10.3) mg/dl Magnesium (1.7-2.4) mg/dl Total Bilirubin (0.2-1.0) mg/dl AST (13-39) U/L ALT (7-52) U/L Alkaline Phosphatase (34-104) U/L Troponin I High Sens (0-14) pg/ml B-Natriuretic Peptide 295 H (0-100) pg/ml Total Protein (6.0-8.3) gm/dl Albumin (3.4-5.0) gm/dl Globulin (2.5-4.0) gm/dl Albumin/Globulin Ratio (0.9-2) TSH 2.613 (0.300-4.500) uIu/ml Adenovirus (PCR) (NotDetected) B. pertussis DNA (PCR) (NotDetected) B.parapertussis DNA PCR (NotDetected) C. pneumoniae DNA (PCR) (NotDetected) Coronavirus OC43 (PCR) (NotDetected) Coronavirus HKU1 (PCR) (NotDetected) Coronavirus 229E (PCR) (NotDetected) SARS-CoV-2 (PCR) (NotDetected) Coronavirus NL63 (PCR) (NotDetected) Human Metapneumovir PCR (NotDetected) Influenza Type A (PCR) (NotDetected) Influenza Type B (PCR) (NotDetected) M. pneumoniae (PCR) (NotDetected) Parainfluenza 1 (PCR) (NotDetected) Parainfluenza 2 (PCR) (NotDetected) Parainfluenza 3 (PCR) (NotDetected) Parainfluenza 4 (PCR) (NotDetected) RSV (PCR) (NotDetected) Entero/Rhino (PCR) (NotDetected) Administered Medications Benzonatate (Benzonatate 100 Mg Capsule) 100 mg PO TID PRN PRN Reason: Cough Stop: 04/05/23 22:24 Last Admin: 03/06/23 22:41 Dose: 100 mg Documented By: Guaifenesin (Guaifenesin 600 Mg Tabcr) 600 mg PO Q12 BARRON Stop: 04/05/23 22:24 Last Admin: 03/06/23 22:41 Dose: 600 mg Documented By: Insulin Aspart (Insulin Aspart Per Unit Charge) 0 units SC ACHS BARRON Stop: 04/05/23 22:47 Last Admin: 03/07/23 00:10 Dose: 9 units Documented By: Co-signed By: ODETTE Insulin Glargine (Lantus Per Unit Charge) 5 units SQ HS BARRON Stop: 04/05/23 22:47 Last Admin: 03/07/23 00:10 Dose: 5 units Documented By: Co-signed By: ODETTE Discontinued Medications Albuterol (Albut/Ipratrop 3mg/0.5mg Neb 3 Ml Vial) 3 ml NEB NOW STA; Protocol Stop: 03/06/23 19:02 Last Admin: 03/06/23 19:18 Dose: 3 ml Documented By: Diltiazem HCl (Diltiazem Hcl 5 Mg/Ml 5 Ml Vial) 15 mg IV NOW STA Stop: 03/06/23 19:02 Last Admin: 03/06/23 19:18 Dose: 15 mg Documented By: Co-signed By: SUKUMAR Furosemide (Furosemide 40 Mg/4 Ml Vial) 40 mg IV ONE ONE Stop: 03/06/23 19:45 Last Admin: 03/06/23 20:40 Dose: 40 mg Documented By: Diltiazem HCl 125 mg/ Dextrose 125 mls @ 5 mls/hr IV .Q24H [facility]; Protocol Stop: 03/06/23 23:00 Last Titration: 03/06/23 22:37 Dose: 0 mg/hr, 0 mls/hr Documented By: Co-signed By: INDY Admin: 03/06/23 19:19 Dose: 5 mg/hr, 5 mls/hr Documented By: Co-signed By: SUKUMAR Methylprednisolone (Methylprednisolone 125 Mg/2 Ml Vial) 60 mg IV NOW STA Stop: 03/06/23 19:02 Last Admin: 03/06/23 19:14 Dose: 60 mg Documented By: Metoprolol Succinate (Metoprolol Succ 50mg Ext Rel Tab) 50 mg PO NOW STA Stop: 03/06/23 22:17 Last Admin: 03/06/23 23:50 Dose: Not Given Documented By: Metoprolol Tartrate (Metoprolol Tartrate 1 Mg/Ml Vial) 5 mg IV NOW STA Stop: 03/06/23 19:41 Last Admin: 03/06/23 20:40 Dose: 5 mg Documented By: Metoprolol Tartrate (Metoprolol Tartrate 50 Mg Tab) 50 mg PO NOW STA Stop: 03/06/23 22:22 Last Admin: 03/06/23 22:41 Dose: 50 mg Documented By: JR Navarrete (Stat Iv Infusion Titration Per Protocol) 1 each N/A NOW STA Stop: 03/06/23 19:02 Last Admin: 03/06/23 19:23 Dose: 1 each Documented By: JR Navarrete (Diltiazem Gtt - Stop Order) 1 each N/A ONE ONE Stop: 03/06/23 22:46 Last Admin: 03/06/23 22:42 Dose: 1 each Documented By: Potassium Chloride (Potassium Chloride Pwd 20 Meq Pack) 40 meq PO NOW STA Stop: 03/06/23 19:42 Last Admin: 03/06/23 21:28 Dose: Not Given Documented By: Potassium Chloride (Potassium Chloride 10 Meq Tabcr) 50 meq PO NOW STA Stop: 03/06/23 20:33 Last Admin: 03/06/23 20:48 Dose: 50 meq Documented By: Imaging Data Radiologist's Impression: Chest X-Ray 03/06/23 18:01 XR chest 1V not portable HISTORY: Cough. Shortness of breath. COMPARISON: Chest 01/20/2021. FINDINGS: No pneumothorax. No pleural effusions. The cardiac silhouette is mildly enlarged. There is mild central pulmonary vascular congestion without overt edema. No new focal lung consolidations to suggest a pneumonia. Calcifications within the aortic knob. No acute fractures identified. Metallic anchor is again noted within the right humeral head. IMPRESSION: Cardiomegaly and mild central pulmonary vascular congestion without overt edema. ACT 112: Negative or not required by law. Electronically signed by: Kevin Barraza M.D. 03/06/2023 6:14 PM Discharge Plan Visit Data Chief Complaint: Cough Stated Complaint: NASAL CONGESTION, COUGH ED Provider: Dario Xiao Discharge Problem: Atrial flutter with rapid ventricular response, Flu-like symptoms, SOB (shortness of breath), Failure of outpatient treatment, Wheezing Patient Disposition: Admitted As Inpatient Condition: Fair
[2023-03-06 19:08] LABS: Troponin I High Sensitivity 7.2 pg/ml (0-14)
[2023-03-06] MEDS ORDERED: dilTIAZem HCL 125 MG in DEXTROSE 5% 100 ML IV SCH (19:15)
[2023-03-06 19:24] LABS: Adenovirus PCR Not Detected (NotDetected); Bordetella parapertussis PCR Not Detected (NotDetected); Bordetella pertussis PCR Not Detected (NotDetected); Chlamydia pneumoniae PCR Not Detected (NotDetected); Coronavirus 229E PCR Not Detected (NotDetected); Coronavirus CoV-2 (COVID19)PCR Not Detected (NotDetected); Coronavirus HKU1 PCR Not Detected (NotDetected); Coronavirus NL63 PCR Not Detected (NotDetected); Coronavirus OC43PCR Not Detected (NotDetected); Human Metapneumovirus PCR Not Detected (NotDetected); Influenza A PCR Not Detected (NotDetected); Influenza B PCR Not Detected (NotDetected); Mycoplasma pneumoniae PCR Not Detected (NotDetected); Parainfluenza Virus 1 PCR Not Detected (NotDetected); Parainfluenza Virus 2 PCR Not Detected (NotDetected); Parainfluenza Virus 3 PCR Not Detected (NotDetected); Parainfluenza Virus 4 PCR Not Detected (NotDetected); Respiratory Syncytial VirusPCR Not Detected (NotDetected); Rhinovirus/Enterovirus PCR Not Detected (NotDetected)
[2023-03-06 19:40] LABS: Basophils % (auto) 1.1 %; Eosinophils % (auto) 15.9 %; Hematocrit (blood only) 44.1 % (37.0-47.0); Hemoglobin 14.5 g/dl (12.0-16.0); Immature Granulocytes # (auto) 0.02 K/uL (0.01-0.20); Immature Granulocytes % (auto) 0.2 %; Lymphocytes # (auto) 2.37 K/uL (1.20-3.40); Mean Corpuscular Hemoglobin 27.6 pg (25.0-34.0); Mean Corpuscular Hgb Conc 32.9 g/dL (32.0-36.0); Mean Platelet Volume 10.5 fL (9.4-12.4); Monocytes # (auto) 0.49 K/uL (0.11-0.59); Monocytes % (auto) 5.6 %; Neutrophils % (auto) 50.2 %; Platelet Count 272 K/uL (130-400); RDW Coefficient of Variation 13.1 % (11.5-14.5); RDW Standard Deviation 39.8 fL (36.4-46.3); Red Blood Count 5.25 M/uL (4.20-5.40); White Blood Count 8.78 K/ul (4.8-10.8)
[2023-03-06] MEDS ORDERED: METOPROLOL TARTRATE 1 MG/ML VIAL IV STA (19:40)
[2023-03-06] MEDS ORDERED: POTASSIUM CHLORIDE PWD 20 MEQ PACK PO STA (19:41)
[2023-03-06] MEDS ORDERED: FUROSEMIDE 40 MG/4 ML VIAL IV ONE (19:44)
[2023-03-06] MEDS ORDERED: POTASSIUM CHLORIDE 10 MEQ TABCR PO STA (20:32)
[2023-03-06 20:59] LABS: INR 1.1 (0.9-1.1); Partial Thromboplastin Ratio 0.8; Partial Thromboplastin Time 22.9 Seconds (21.0-31.0); Prothrombin Time 11.5 Seconds (9.0-12.0)
[2023-03-06] MEDS ORDERED: POTASSIUM CHLORIDE PWD 20 MEQ PACK PO ONE (21:30)
[2023-03-06] MEDS ORDERED: METOPROLOL SUCC 50MG EXT REL TAB PO STA (22:16)
--- NOTE | 2023-03-06 22:17 | History & Physical Report ---
Date of Service March 06, 2023 Assessment & Plan (1) CHF (congestive heart failure): Plan: Acute CHF History diastolic dysfunction Secondary to recurrent A-fib possibly from respiratory tract infection Past history cardioversion Off anticoagulation due to recurrent falls and GI bleed hx CAD status post stent Valvular heart disease (mild MR/TR) hypertension, elevated secondary to illness COPD, recent outpatient antibiotic Rx for possible COPD exacerbation DM 2 on oral medications, suboptimal control as of recent hemoglobin A1c of 8 last December 2022 ongoing tobacco abuse PCU Diuretic Rx strict I/Os, daily weights, CHF education Titrate home beta-laureano dose, wean off Cardizem drip TTE, Cardiology consult RE CHF Basal, bolus insulin, ISS BG goal 1 10-1 40, carb count coverage Nicotine patch as needed DVT prophylaxis. Lovenox Full code Text document was generated using [employer] voice recognition software. It may contain grammatical or spelling errors. Kindly contact undersigned for clarification of any documentation item in question. History of Present Illness Chief Complaint: Worsening shortness of breath Primary Care Provider: Amparo Rich DO History obtained from patient and records. Medical history significant for CAD status post stent, PAF status post cardioversion off anticoagulation secondary to recurrent GI bleed and fall risk, valvular heart disease (mild MR/TR), hypertension, hyperlipidemia, COPD, DM 2 on oral medications, history of PUD as per records/diverticulosis, colonic polyps, ongoing tobacco abuse. Last confinement 2020 for GI bleed. Patient Eliquis for A-fib discontinued. Patient seen at PCPs office last month for shortness of breath of 2 days duration. Attributed to viral causes. No outpatient testing done. 2 weeks ago, patient with congestion, runny nose, earache and sore throat symptoms. Productive cough as per PCP note from 4 days ago. Not sure about sick contacts. Patient completed COVID-19 vaccination. Irregular rhythm, heart rate 118 obtained at the office. Patient prescribed amoxicillin and azithromycin course for presumptive COPD exacerbation. No outpatient x-rays done. Worsening shortness of breath symptoms despite antibiotic Rx. Dry cough currently. Patient admits to fluid retention, leg swelling complaints. Pulse felt fast. Compliant with home medications although concerns about remembering pills documented in outpatient PCP visit from 2 months ago.. Denies nebulizer/inhaler/decongestant use. Patient consulted ER due to worsening symptoms. Rapid A-fib, heart rate 140s upon arrival at the ER IV Cardizem infusion initiated at the ER. 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 Allergies Allergy/AdvReac Type Severity Reaction Status Date / Time codeine Allergy Mild SICK Verified 03/06/23 19:18 propoxyphene Allergy Mild SICK Verified 03/06/23 19:18 BEE STING Allergy Severe Anaphylaxis Uncoded 03/06/23 19:18 Home Medications Medication Instructions Recorded Confirmed Type cyanocobalamin (vitamin B-12) 1,000 mcg PO QAM 10/07/20 03/06/23 History 1,000 mcg tablet gabapentin 800 mg tablet 800 mg PO QAM 10/07/20 03/06/23 History lisinopril 10 mg tablet 10 mg PO QAM 10/07/20 03/06/23 History metoprolol tartrate 25 mg tablet 50 mg PO BID 10/07/20 03/06/23 History acetaminophen 325 mg tablet 650 mg PO HS 01/20/21 03/06/23 History (Tylenol) atorvastatin 80 mg tablet 80 mg PO PM 01/21/21 03/06/23 History empagliflozin 25 mg tablet 25 mg PO QAM 01/21/21 03/06/23 History (Jardiance) metformin 500 mg tablet 500 mg PO BID 01/21/21 03/06/23 History oxybutynin chloride 5 mg 5 mg PO QAM 01/21/21 03/06/23 History tablet,extended release 24 hr sertraline 25 mg tablet 25 mg PO QAM 01/21/21 03/06/23 History trazodone 50 mg tablet 50 mg PO HS 01/21/21 03/06/23 History folic acid 1 mg tablet 1 mg PO QAM 03/06/23 03/06/23 History Past Med/Surg History Medical History CAD (coronary artery disease) S/p PCI with BMS to D1 in 2011 COPD (chronic obstructive pulmonary disease) Per records Diabetes mellitus, type 2 GERD (gastroesophageal reflux disease) History of kidney stones Hyperlipidemia Hypertension Nocturnal hypoxemia Per records Obesity Osteoarthritis Paroxysmal atrial fibrillation PUD (peptic ulcer disease) Smoker Surgical History History of cataract surgery RT/LEFT History of colonoscopy History of cystoscopy History of heart artery stent 1 STENT PLACED to D1 in 2012 History of hysterectomy History of repair of rotator cuff RT History of tonsillectomy and adenoidectomy History of tooth extraction Family History Son Family history of diabetes mellitus Other No family history of adverse response to anesthesia Social History Smoking Status: Current every day smoker Tobacco Type: Cigarettes Cigarettes Per Day: 20 PER DAY; Second Hand Exposure: Yes (HUSBANDS SMOKE); Do You Dip or Chew Tobacco: No; Hx Alcohol Use: No Hx Substance Use: No Preferred Language: Sammarinese Communication Ability: Effective Licensed Physical Therapist Assistant Required: No Beliefs That Will Affect Care: None Current Living Situation: Alone Other Information That Helps Us Care for You: No Feels Safe at Home: Yes Safety Concerns: Feels Safe At This Time Assistive Devices: Cane, Denture - Upper and Walker Review of Systems Review of Systems: As per HPI, all other systems reviewed and negative Physical Exam Physical Exam: GENERAL: obese, minimal respiratory distress SKIN: Pallor, warm HEENT: Pale palpebral conjunctivae, no ptosis, dry buccal mucosa NECK : Supple, short neck, no tenderness CHEST : Decreased breath sounds, no tenderness HEART : Tachycardic, irregular, systolic murmur ABDOMEN: Some distention, nontender EXTREMITIES : Minimal LE swelling, no LE tenderness, no other conspicuous deformities noted NEUROLOGIC : Coherent, no facial asymmetry, no other gross focality Results & Data Results & Data Vital Signs (Past 12 Hours) Vital Signs Temp Pulse Resp BP Pulse Ox O2 Del Method 03/06/23 20:40 111 H 03/06/23 20:40 147/118 H 03/06/23 20:30 136 H 15 03/06/23 20:20 91 H 22 03/06/23 20:10 96 H 21 03/06/23 20:00 94 H 03/06/23 19:50 109 H 22 03/06/23 19:40 123 H 03/06/23 19:30 118 H 24 03/06/23 20:40 108 H 171/130 H 03/06/23 19:20 125 H 27 H 96 Room Air 03/06/23 19:17 171/135 H 03/06/23 19:17 149 H 27 H 96 Room Air 03/06/23 17:58 36.6 C 140 H 18 161/115 H 95 Room Air Laboratory Results Laboratory Results WBC 8.78 K/ul (4.8-10.8) 03/06/23 18:18 RBC 5.25 M/uL (4.20-5.40) 03/06/23 18:18 Hgb 14.5 g/dl (12.0-16.0) 03/06/23 18:18 Hct 44.1 % (37.0-47.0) 03/06/23 18:18 MCV 84.0 fL (80.0-100.0) 03/06/23 18:18 MCH 27.6 pg (25.0-34.0) 03/06/23 18:18 MCHC 32.9 g/dL (32.0-36.0) 03/06/23 18:18 RDW Std Deviation 39.8 fL (36.4-46.3) 03/06/23 18:18 RDW Coeff of Dash 13.1 % (11.5-14.5) 03/06/23 18:18 Plt Count 272 K/uL (130-400) 03/06/23 18:18 MPV 10.5 fL (9.4-12.4) 03/06/23 18:18 Immature Gran % (Auto) 0.2 % 03/06/23 18:18 Neut % (Auto) 50.2 % 03/06/23 18:18 Lymph % (Auto) 27.0 % 03/06/23 18:18 [place] % (Auto) 5.6 % 03/06/23 18:18 Eos % (Auto) 15.9 % 03/06/23 18:18 Baso % (Auto) 1.1 % 03/06/23 18:18 Neut # (Auto) 4.40 K/uL (1.40-6.50) 03/06/23 18:18 Lymph # (Auto) 2.37 K/uL (1.20-3.40) 03/06/23 18:18 [place] # (Auto) 0.49 K/uL (0.11-0.59) 03/06/23 18:18 Eos # (Auto) 1.40 K/uL (0.00-0.50) H 03/06/23 18:18 Baso # (Auto) 0.10 K/uL (0.00-0.20) 03/06/23 18:18 Immature Gran # (Auto) 0.02 K/uL (0.01-0.20) 03/06/23 18:18 PT 11.5 Seconds (9.0-12.0) 03/06/23 18:18 INR 1.1 (0.9-1.1) 03/06/23 18:18 APTT 22.9 Seconds (21.0-31.0) 03/06/23 18:18 PTT Ratio 0.8 03/06/23 18:18 Sodium 136 mmol/L (136-145) 03/06/23 18:18 Potassium 3.5 mmol/L (3.5-5.1) 03/06/23 18:18 Chloride 104 mmol/L (98-107) 03/06/23 18:18 Carbon Dioxide 26 mmol/L (21-32) 03/06/23 18:18 Anion Gap 6 (3-11) 03/06/23 18:18 BUN 8 mg/dl (6-23) 03/06/23 18:18 Creatinine 0.91 mg/dl (0.6-1.2) 03/06/23 18:18 Est Cr Clr Drug Dosing 41.8 ml/min 03/06/23 18:18 Est GFR ( Amer) 69.1 ml/min 03/06/23 18:18 Est GFR (Non-Af Amer) 59.6 ml/min 03/06/23 18:18 BUN/Creatinine Ratio 8.8 (10-20) L 03/06/23 18:18 Glucose 165 mg/dl (70-99(Fasting)) H 03/06/23 18:18 Calcium 9.2 mg/dl (8.6-10.3) 03/06/23 18:18 Magnesium 2.0 mg/dl (1.7-2.4) 03/06/23 18:18 Total Bilirubin 0.6 mg/dl (0.2-1.0) 03/06/23 18:18 AST 15 U/L (13-39) 03/06/23 18:18 ALT 11 U/L (7-52) 03/06/23 18:18 Alkaline Phosphatase 64 U/L (34-104) 03/06/23 18:18 Troponin I High Sens 7.2 pg/ml (0-14) 03/06/23 18:18 Total Protein 7.1 gm/dl (6.0-8.3) 03/06/23 18:18 Albumin 3.8 gm/dl (3.4-5.0) 03/06/23 18:18 Globulin 3.3 gm/dl (2.5-4.0) 03/06/23 18:18 Albumin/Globulin Ratio 1.2 (0.9-2) 03/06/23 18:18 Adenovirus (PCR) Not Detected (NotDetected) 03/06/23 18:00 B. pertussis DNA (PCR) Not Detected (NotDetected) 03/06/23 18:00 B.parapertussis DNA PCR Not Detected (NotDetected) 03/06/23 18:00 C. pneumoniae DNA (PCR) Not Detected (NotDetected) 03/06/23 18:00 Coronavirus OC43 (PCR) Not Detected (NotDetected) 03/06/23 18:00 Coronavirus HKU1 (PCR) Not Detected (NotDetected) 03/06/23 18:00 Coronavirus 229E (PCR) Not Detected (NotDetected) 03/06/23 18:00 SARS-CoV-2 (PCR) Not Detected (NotDetected) 03/06/23 18:00 Coronavirus NL63 (PCR) Not Detected (NotDetected) 03/06/23 18:00 Human Metapneumovir PCR Not Detected (NotDetected) 03/06/23 18:00 Influenza Type A (PCR) Not Detected (NotDetected) 03/06/23 18:00 Influenza Type B (PCR) Not Detected (NotDetected) 03/06/23 18:00 M. pneumoniae (PCR) Not Detected (NotDetected) 03/06/23 18:00 Parainfluenza 1 (PCR) Not Detected (NotDetected) 03/06/23 18:00 Parainfluenza 2 (PCR) Not Detected (NotDetected) 03/06/23 18:00 Parainfluenza 3 (PCR) Not Detected (NotDetected) 03/06/23 18:00 Parainfluenza 4 (PCR) Not Detected (NotDetected) 03/06/23 18:00 RSV (PCR) Not Detected (NotDetected) 03/06/23 18:00 Entero/Rhino (PCR) Not Detected (NotDetected) 03/06/23 18:00 Impressions Chest X-Ray 03/06/23 18:01 XR chest 1V not portable HISTORY: Cough. Shortness of breath. COMPARISON: Chest 01/20/2021. FINDINGS: No pneumothorax. No pleural effusions. The cardiac silhouette is mildly enlarged. There is mild central pulmonary vascular congestion without overt edema. No new focal lung consolidations to suggest a pneumonia. Calcifications within the aortic knob. No acute fractures identified. Metallic anchor is again noted within the right humeral head. IMPRESSION: Cardiomegaly and mild central pulmonary vascular congestion without overt edema. ACT 112: Negative or not required by law. Electronically signed by: Kevin Barraza M.D. 03/06/2023 6:14 PM Diagnostic Findings EKG as per my interpretation : Rate 120, A-fib, normal axis, T wave abnormalities septal leads
[2023-03-06] MEDS ORDERED: METOPROLOL TARTRATE 50 MG TAB PO STA (22:21)
[2023-03-06] MEDS ORDERED: BENZONATATE 100 MG CAPSULE PO PRN (22:25)
[2023-03-06] MEDS: guaiFENesin 600 MG TABCR PO SCH (22:41)
[2023-03-06] MEDS ORDERED: [UNRECOGNIZED DRUG - REMARK] ONE (22:45)
[2023-03-06] MEDS ORDERED: LANTUS PER UNIT CHARGE SQ SCH (22:48)
[2023-03-06] MEDS ORDERED: GLUCAGON FOR INJ 1 MG VIAL SQ PRN (22:48)
[2023-03-06] MEDS ORDERED: GLUCOSE 40% GEL 15 GM TUBE PO PRN (22:48)
[2023-03-06] MEDS ORDERED: GLUCOSE 10 TAB/TUBE PO PRN (22:48)
[2023-03-06] MEDS ORDERED: CARBOHYDRATES FOR HYPOGLYCEMIA PO PRN (22:48)
[2023-03-06] MEDS ORDERED: DEXTROSE 50% 50 ML SYRINGE IV PRN (22:48)
[2023-03-07] MEDS: INSULIN ASPART PER UNIT CHARGE SC SCH ×3 (00:10→11:44)
[2023-03-07 04:40] LABS: Basophils # (auto) 0.04 K/uL (0.00-0.20); Basophils % (auto) 0.6 %; Eosinophils # (auto) 0.02 K/uL (0.00-0.50); Eosinophils % (auto) 0.3 %; Hemoglobin 14.7 g/dl (12.0-16.0); Immature Granulocytes # (auto) 0.04 K/uL (0.01-0.20); Immature Granulocytes % (auto) 0.6 %; Lymphocytes # (auto) 0.68 K/uL (1.20-3.40); Lymphocytes % (auto) 9.7 %; Mean Corpuscular Hemoglobin 27.7 pg (25.0-34.0); Mean Corpuscular Hgb Conc 34.2 g/dL (32.0-36.0); Monocytes # (auto) 0.11 K/uL (0.11-0.59); Monocytes % (auto) 1.6 %; Neutrophils % (auto) 87.2 %; Platelet Count 316 K/uL (130-400); RDW Coefficient of Variation 13.1 % (11.5-14.5); RDW Standard Deviation 37.5 fL (36.4-46.3); Red Blood Count 5.31 M/uL (4.20-5.40); White Blood Count 6.99 K/ul (4.8-10.8)
[2023-03-07 04:47] LABS: BUN Creatinine Ratio 15.8 (10-20); Calcium 8.8 mg/dl (8.6-10.3); Est GFR (African American) 65.6 ml/min; Est GFR (Non-African American) 56.6 ml/min; Potassium 3.7 mmol/L (3.5-5.1)
[2023-03-07] MEDS ORDERED: FUROSEMIDE 40 MG/4 ML VIAL IV ONE (08:00)
[2023-03-07] MEDS: guaiFENesin 600 MG TABCR PO SCH (08:26)
--- NOTE | 2023-03-07 08:46 | Cardiology Consultation ---
Date of Consultation March 07, 2023 Assessment & Plan (1) Atrial fibrillation with RVR: (2) Acute heart failure with preserved ejection fraction: (3) Mitral regurgitation: (4) Flu-like symptoms: Plan 82-year-old female presenting with shortness of breath, URI symptoms, mild heart failure with preserved ejection fraction due to rapid atrial fibrillation of more than 8 weeks duration with evidence of moderate to severe mitral regurgitation on echocardiogram. Clinically improved with IV diuresis in ER. Heart rate remains borderline elevated. Agree with titration of metoprolol to tartrate to 75 mg twice daily. Can transition patient to metoprolol succinate 100 mg in a.m., 50 mg in the evening pending outpatient follow-up. Long-term anticoagulation discontinued last year due to recurrent falls and significant anemia/GI bleeding. Continue to monitor telemetry with titration of beta-laureano therapy. Consider addition of digoxin pending clinical course. Continue lisinopril and statin therapy as previously ordered. Subcu Lovenox for DVT prophylaxis. History of Present Illness Reason for Consultation: CHF, PAF Requesting Physician: Dr. Peres Attending Physician: Sridevi Cline MD History of Present Illness 82-year-old female presents to the emergency department with cough of 6 days duration. Recently treated by primary care with both symptomatic and amoxicillin for URI. Patient found to be rapid atrial fibrillation in the ER started on IV diltiazem infusion. Evaluated by primary care early December with ECG evidence of recurrent atrial flutter and borderline rapid ventricular response. Reported noncompliance with beta-laureano therapy for approximately 2 weeks prior to that visit. Carries a history of paroxysmal atrial fibrillation. Anticoagulation discontinued in fall 2021 due to fall risk. History of significant anemia related to colitis. Patient reports symptoms of cough and shortness of breath as well as orthopnea dating back more than 7 days. She was told to proceed to the ER if her symptoms do not improve over the weekend. Seen and examined at the bedside lying supine and resting comfortably. Treated with intravenous furosemide in the emergency department. Reports significant diuresis, however, output was not recorded. Denies any palpitations, lightheadedness, or dizziness. No chest discomfort or heaviness. Denies fever, chills, or sick contacts. Requesting discharge today as her dog recently had a litter of puppies and she needs to return home to care for them. Allergies Allergy/AdvReac Type Severity Reaction Status Date / Time codeine Allergy Mild SICK Verified 03/06/23 19:18 propoxyphene Allergy Mild SICK Verified 03/06/23 19:18 BEE STING Allergy Severe Anaphylaxis Uncoded 03/06/23 19:18 Home Medications Medication Instructions Recorded Confirmed Type cyanocobalamin (vitamin B-12) 1,000 mcg PO QAM 10/07/20 03/06/23 History 1,000 mcg tablet gabapentin 800 mg tablet 800 mg PO QAM 10/07/20 03/06/23 History lisinopril 10 mg tablet 10 mg PO QAM 10/07/20 03/06/23 History metoprolol tartrate 25 mg tablet 50 mg PO BID 10/07/20 03/06/23 History acetaminophen 325 mg tablet 650 mg PO HS 01/20/21 03/06/23 History (Tylenol) atorvastatin 80 mg tablet 80 mg PO PM 01/21/21 03/06/23 History empagliflozin 25 mg tablet 25 mg PO QAM 01/21/21 03/06/23 History (Jardiance) metformin 500 mg tablet 500 mg PO BID 01/21/21 03/06/23 History oxybutynin chloride 5 mg 5 mg PO QAM 01/21/21 03/06/23 History tablet,extended release 24 hr sertraline 25 mg tablet 25 mg PO QAM 01/21/21 03/06/23 History trazodone 50 mg tablet 50 mg PO HS 01/21/21 03/06/23 History folic acid 1 mg tablet 1 mg PO QAM 03/06/23 03/06/23 History Patient History Medical History CAD (coronary artery disease) S/p PCI with BMS to D1 in 2011 COPD (chronic obstructive pulmonary disease) Per records Diabetes mellitus, type 2 GERD (gastroesophageal reflux disease) History of kidney stones Hyperlipidemia Hypertension Nocturnal hypoxemia Per records Obesity Osteoarthritis Paroxysmal atrial fibrillation PUD (peptic ulcer disease) Smoker Surgical History History of cataract surgery RT/LEFT History of colonoscopy History of cystoscopy History of heart artery stent 1 STENT PLACED to D1 in 2011 History of hysterectomy History of repair of rotator cuff RT History of tonsillectomy and adenoidectomy History of tooth extraction Family History Son Family history of diabetes mellitus Other No family history of adverse response to anesthesia Social History Smoking Status: Current every day smoker Tobacco Type: Cigarettes Cigarettes Per Day: 20 PER DAY; Second Hand Exposure: Yes (HUSBANDS SMOKE); Do You Dip or Chew Tobacco: No; Hx Alcohol Use: No Hx Substance Use: No Preferred Language: Cypriot Communication Ability: Effective 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 Machine Operator Required: No Beliefs That Will Affect Care: None Current Living Situation: Alone Other Information That Helps Us Care for You: No Feels Safe at Home: Yes Safety Concerns: Feels Safe At This Time Assistive Devices: Cane, Denture - Upper and Walker Review of Systems Review of Systems: All systems reviewed & are unremarkable except as noted in Subjective Physical Exam Constitutional: well nourished; no acute distress Respiratory: normal respiratory effort; no respiratory distress, no labored breathing and no retractions Auscultation: no crackles, no rales, no rhonchi and no wheezes Cardiovascular: Rate/Rhythm: + tachycardic and + irregularly irregular Heart Sounds: normal S1, normal S2 and + murmur (2/6 holosystolic murmur heard at the apex) Vessels: radial pulses present; no JVD and no carotid bruit Extremities: no edema Gastrointestinal (Abdomen): Inspection/Auscultation: abdomen normal to inspection; abdomen not distended Percussion/Palpation: abdomen soft; abdomen nontender, no guarding and abdomen not rigid Neurologic: CN's II-XI intact bilaterally and moves all extremities; no focal motor deficits Results & Data Vital Signs (Past 12 Hours) Vital Signs Temp Pulse Pulse Resp BP BP Pulse Ox 03/07/23 05:00 95 H 17 03/07/23 04:30 111 H 22 03/07/23 04:25 95 H 23 97 03/07/23 04:25 130/80 03/07/23 04:00 83 20 03/07/23 03:30 80 17 03/07/23 03:00 93 H 22 03/07/23 02:30 91 H 27 H 03/07/23 02:24 86 03/07/23 01:00 88 24 03/07/23 00:30 86 26 H 03/07/23 00:19 137/85 03/07/23 00:19 88 28 H 97 03/07/23 00:00 94 H 22 03/06/23 23:30 25 H 03/06/23 23:00 94 H 20 03/06/23 22:47 89 21 03/06/23 22:47 134/97 03/06/23 22:30 94 H 03/06/23 22:19 127/85 03/06/23 22:19 83 25 H 03/06/23 21:36 90 10 L 03/06/23 21:36 128/91 03/06/23 21:35 91 H 15 03/06/23 21:00 105 H 17 03/07/23 04:24 94 H 18 130/80 97 03/06/23 23:51 84 03/07/23 00:19 36.4 C L 87 18 137/85 95 03/06/23 22:45 82 20 134/97 93 03/06/23 20:40 111 H 147/118 H 03/06/23 20:40 111 H 03/06/23 20:40 147/118 H 03/06/23 20:40 108 H 171/130 H O2 Del Method 03/07/23 05:00 03/07/23 04:30 03/07/23 04:25 03/07/23 04:25 03/07/23 04:00 03/07/23 03:30 03/07/23 03:00 03/07/23 02:30 03/07/23 02:24 03/07/23 01:00 03/07/23 00:30 03/07/23 00:19 03/07/23 00:19 03/07/23 00:00 03/06/23 23:30 03/06/23 23:00 03/06/23 22:47 03/06/23 22:47 03/06/23 22:30 03/06/23 22:19 03/06/23 22:19 03/06/23 21:36 03/06/23 21:36 03/06/23 21:35 03/06/23 21:00 03/07/23 04:24 Room Air 03/06/23 23:51 03/07/23 00:19 Room Air 03/06/23 22:45 Room Air 03/06/23 20:40 03/06/23 20:40 03/06/23 20:40 03/06/23 20:40 Laboratory Results Cardiac Enzymes 03/06/23 03/06/23 Range/Units 18:18 21:29 AST 15 (13-39) U/L Troponin I High Sens 7.2 (0-14) pg/ml B-Natriuretic Peptide 295 H (0-100) pg/ml Coagulation 03/06/23 03/06/23 Range/Units 18:18 21:29 PT 11.5 (9.0-12.0) Seconds APTT 22.9 (21.0-31.0) Seconds B-Natriuretic Peptide 295 H (0-100) pg/ml CBC 03/06/23 03/07/23 Range/Units 18:18 04:10 WBC 8.78 6.99 (4.8-10.8) K/ul RBC 5.25 5.31 (4.20-5.40) M/uL Hgb 14.5 14.7 (12.0-16.0) g/dl Hct 44.1 43.0 (37.0-47.0) % Plt Count 272 316 (130-400) K/uL Neut # (Auto) 4.40 6.10 (1.40-6.50) K/uL Lymph # (Auto) 2.37 0.68 L (1.20-3.40) K/uL [place] # (Auto) 0.49 0.11 (0.11-0.59) K/uL Eos # (Auto) 1.40 H 0.02 (0.00-0.50) K/uL Baso # (Auto) 0.10 0.04 (0.00-0.20) K/uL Comprehensive Metabolic Panel 03/06/23 03/07/23 Range/Units 18:18 04:10 Sodium 136 135 L (136-145) mmol/L Potassium 3.5 3.7 (3.5-5.1) mmol/L Chloride 104 103 (98-107) mmol/L Carbon Dioxide 26 22 (21-32) mmol/L BUN 8 15 (6-23) mg/dl Creatinine 0.91 0.95 (0.6-1.2) mg/dl Glucose 165 H 260 H (70-99(Fasting)) mg/dl Calcium 9.2 8.8 (8.6-10.3) mg/dl AST 15 (13-39) U/L ALT 11 (7-52) U/L Alkaline Phosphatase 64 (34-104) U/L Total Protein 7.1 (6.0-8.3) gm/dl Albumin 3.8 (3.4-5.0) gm/dl Intake and Output 03/06/23 03/07/23 03/07/23 22:59 06:59 14:59 Intake Total 16.5 / 16.5 50 / 50 Balance 16.5 / 16.5 50 / 50 Intake: IV 16.5 / 16.5 dilTIAZem HCL 125 mg In 16.5 / 16.5 Dextrose 5% 100 ml @ 5 MG/HR 5 mls/hr IV .Q24H [facility] Rx#: [id number] Oral 50 / 50 Other: Weight 69.3 kg 69.3 kg 69.3 kg Weight Measurement Method Built [facility] Patient Weight 03/08/23 06:59 Weight 69.3 kg ECG Additional Comments: ECG: Atrial fibrillation with rapid ventricular response, ventricular rate 116 bpm.
[2023-03-07] MEDS ORDERED: METOPROLOL TARTRATE 25 MG TAB PO SCH (09:00)
[2023-03-07] MEDS ORDERED: FOLIC ACID 1 MG TAB PO SCH (09:00)
[2023-03-07] MEDS ORDERED: OXYBUTYNIN CHLORIDE XL 5 MG TABCR PO SCH (09:00)
[2023-03-07] MEDS ORDERED: CYANOCOBALAMIN (B-12) 500 MCG TABLET PO SCH (09:00)
[2023-03-07] MEDS ORDERED: GABAPENTIN 800 MG TAB PO SCH (09:00)
[2023-03-07] MEDS ORDERED: SERTRALINE HCL 50 MG TABLET PO SCH (09:00)
[2023-03-07] MEDS ORDERED: lisinopril 10 MG TAB PO SCH (09:00)
[2023-03-07] MEDS ORDERED: ENOXAPARIN INJ 40 MG/0.4 ML SYR SQ SCH (09:00)
--- NOTE | 2023-03-07 13:13 | Electrocardiogram Report ---
Test Reason : Blood Pressure : / mmHG Vent. Rate : 116 BPM Atrial Rate : 000 BPM P-R Int : 000 ms QRS Dur : 070 ms QT Int : 298 ms P-R-T Axes : 000 047 054 degrees QTc Int : 414 ms Atrial fibrillation with rapid ventricular response Abnormal ECG When compared with ECG of 23-JAN-2021 06:30, Atrial fibrillation has replaced Sinus rhythm Vent. rate has increased BY 54 BPM Confirmed by Adam Dang ([id number]) on 03/07/2023 1:13:25 PM Referred By: REFERRED SELF Confirmed By:Adam Dang
--- NOTE | 2023-03-07 17:22 | Discharge Summary ---
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 Patient verbalized understanding of the possible issues for heart failure exacerbation/a fib RVR. Transitioned her metoprolol given questionable patient stability, encouraged patient to follow up with PCP/Cloth Opener Hand, as well as to return if symptoms return (chest pain, SOB/dyspnea, palpitations) Notice for patients leaving the hospital against medical advice: We respect your right to leave the hospital at a time of your choosing. In this case we recommend that you remain in the hospital. We believe that staying longer will allow for the observation, testing, and/or treatments needed to reduce your risk of worsening health. It is possible for a patient to leave the hospital against medical advice and later develop complications, including pain, disability, or even due to a problem which could have been prevented or managed if that patient was still in the hospital. Patients who leave [facility] against medical advice may return at any time if their problem worsens, new problems occur, or if they change their mind. We strongly recommend early follow up with a health care provider after leaving the hospital Medication Changes From Visit -Transitioned from home metoprolol tartrate 50mg BID to metoprolol succinate 100mg qam and 50mg qpm Admission HPI Per Admitting Provider History obtained from patient and records. Medical history significant for CAD status post stent, PAF status post cardioversion off anticoagulation secondary to recurrent GI bleed and fall risk, valvular heart disease (mild MR/TR), hypertension, hyperlipidemia, COPD, DM 2 on oral medications, history of PUD as per records/diverticulosis, colonic polyps, ongoing tobacco abuse. Last confinement 2020 for GI bleed. Patient Eliquis for A-fib discontinued. Patient seen at PCPs office last month for shortness of breath of 2 days duration. Attributed to viral causes. No outpatient testing done. 2 weeks ago, patient with congestion, runny nose, earache and sore throat symptoms. Productive cough as per PCP note from 4 days ago. Not sure about sick contacts. Patient completed COVID-19 vaccination. Irregular rhythm, heart rate 118 obtained at the office. Patient prescribed amoxicillin and azithromycin course for presumptive COPD exacerbation. No outpatient x-rays done. Worsening shortness of breath symptoms despite antibiotic Rx. Dry cough currently. Patient admits to fluid retention, leg swelling complaints. Pulse felt fast. Compliant with home medications although concerns about remembering pills documented in outpatient PCP visit from 2 months ago.. Denies nebulizer/inhaler/decongestant use. Patient consulted ER due to worsening symptoms. Rapid A-fib, heart rate 140s upon arrival at the ER IV Cardizem infusion initiated at the ER. 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 Baker is an 82 year old woman with past medical history notable for paroxsymal a fib, chronic ischemic cardiac heart disease, COPD, and DM who was admitted 03/06 after being found to be in a fib RVR with acute heart failure with preserved ejection fraction. Patient was started on diltazem drip and transitioned to PO lopressor, as well as responded to IV diuresis. 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 She denied having anyone who could monitor the animals overnight for further titration of her betablocker. Cardiology was able to evaluate an recommended continuing home lisinopril, statin, but transition to metoprolol succinate 100qam/50qpm. Given patient's desire to leave despite attempts to explain the importance of continued monitoring and close adjustment of medications, this metoprolol dose was adjusted and patient counseled on returning immediately if symptoms return. #Acute on chronic heart failure with preserved EF #Paroxysmal A Fib likely secondary to recurrent A-fib possibly from recent respiratory tract infection Past history cardioversion Off anticoagulation due to recurrent falls and GI bleed -S.p IV diuersis with improvement -off diltazem and transitioned to Metoprolol tartrate 75mg BID -Upon leaving AMA, adjusted meotprolol to succinate 100mg qam and 50mg qpm, encouraged follow up with Cards and PCP #CAD status post stent #Valvular heart disease (mild MR/TR) #Hypertension -Resume home medications as prescribed by PCP #COPD, recent outpatient antibiotic Rx for possible COPD exacerbation -Informed patient to complete course if started #DM 2 on oral medications, suboptimal control as of recent hemoglobin A1c of 8 last December 2022 #ongoing tobacco abuse Discharge Exam Constitutional WD/WN, vitals as above Respiratory normal respiratory effort, lungs clear to auscultation Cardiovascular HR 90-100s Gastrointestinal (Abdomen) normal bowel sounds, soft, nontender, no hepatosplenomegaly Updated Medication List Medication Instructions Recorded Confirmed Type cyanocobalamin (vitamin B-12) 1,000 mcg PO QAM 10/07/20 03/06/23 History 1,000 mcg tablet gabapentin 800 mg tablet 800 mg PO QAM 10/07/20 03/06/23 History lisinopril 10 mg tablet 10 mg PO QAM 10/07/20 03/06/23 History acetaminophen 325 mg tablet 650 mg PO HS 01/20/21 03/06/23 History (Tylenol) atorvastatin 80 mg tablet 80 mg PO PM 01/21/21 03/06/23 History empagliflozin 25 mg tablet 25 mg PO QAM 01/21/21 03/06/23 History (Jardiance) metformin 500 mg tablet 500 mg PO BID 01/21/21 03/06/23 History oxybutynin chloride 5 mg 5 mg PO QAM 01/21/21 03/06/23 History tablet,extended release 24 hr sertraline 25 mg tablet 25 mg PO QAM 01/21/21 03/06/23 History trazodone 50 mg tablet 50 mg PO HS 01/21/21 03/06/23 History folic acid 1 mg tablet 1 mg PO QAM 03/06/23 03/06/23 History metoprolol succinate 50 mg See Rx Instructions .Route 03/07/23 Rx tablet,extended release 24 hr .COMPLEX #90 tabs Hospital Stay Data Consultations 03/06/23 19:13 ED Decision to Admit Stat 03/06/23 22:48 Consult Cardiology Routine Pending Results Patient Have Any Pending Studies at Discharge: No Discharge Instructions Given to Patient (Per Discharging Provider) Notice for patients leaving the hospital against medical advice: We respect your right to leave the hospital at a time of your choosing. In this case we recommend that you remain in the hospital. We believe that staying longer will allow for the observation, testing, and/or treatments needed to reduce your risk of worsening health. It is possible for a patient to leave the hospital against medical advice and later develop complications, including pain, disability, or even due to a problem which could have been prevented or managed if that patient was still in the hospital. Patients who leave [facility] against medical advice may return at any time if their problem worsens, new problems occur, or if they change their mind. We strongly recommend early follow up with a health care provider after leaving the hospital Total Time Total Time Spent Total Time Spent (In Minutes): I spent a total of 65 minutes coordinating, documenting, and providing care for this patient excluding time spent in the performance of separately billed services.
[2023-03-07] MEDS ORDERED: ACETAMINOPHEN 325 MG TAB PO SCH (21:00)
[2023-03-07] MEDS ORDERED: ATORVASTATIN 40 MG TAB PO SCH (21:00)
[2023-03-07] MEDS ORDERED: traZODone HCL 50 MG TAB PO SCH (21:00)
[2023-03-08] MEDS ORDERED: FUROSEMIDE 40 MG/4 ML VIAL IV SCH (09:00)
== END 2023-03-07 14:00 | disposition left against medical advice (07) | DRG 291 ==
LOC: ED 17:36 → INTOOBSV 22:20 → EDINP 22:20

== ENCOUNTER 2023-05-26 07:17 | Observation (INO) ==
--- OUTSIDE RECORDS SUMMARY | 2023-05-26 07:25 | External Medical Summary | Summary of Care ---
Author Name Unknown Organization [facility] Address [address] [place] [address] Phone [phone] Care Team Providers Care Employee Relations Manager Name Role Phone Amparo Rich DO Primary Care Provider Reason for Visit * Reason Onset Date Comments Advice 04/23/2023 Encounter Details Date Type Department Care Team (Late st Contact Info) Description 04/23/2023 Telephone [place] [address] [place] [address] Amparo Rich DO [address] [place] [address] Advice Allergies Active Allergy Reactions Criticality Noted Date Comments Bee Venom High 11/17/2011 Life threating reaction Morphine And Related 11/04/2002 vomitting with all types of pain meds documented as of this encounter (statuses as of 04/23/2023) Medications Medication Sig Dispensed Refills Start Date End Date Status EPIPEN 0.3 MG/0.3ML IJ DEVIIndications:Bee sting One injection into thigh as needed for severe allergic reaction 1 Device 5 10/08/2013 Active Blood Glucose Monitoring Suppl (ACCU-CHEK LEONORA PLUS) w/Device KITIndications:Type 2 diabetes, HbA1C goal < 8% ([facility]) Use 4 times a day to check blood sugar. 1 Kit 0 04/24/2019 Active Cyanocobalamin (B-12-SL) 1000 MCG SL TabletIndications:Lo w serum vitamin B12 Place 1,000 mcg under the tongue daily. 90 Tab 3 03/02/2020 Active oxygen IN GASIndications:Noctu rnal hypoxemia 2 L of oxygen while sleeping 1 Each 0 01/20/2021 Active Additional Information Patient not taking.Reported on 01/31/2023 oxygen IN GASIndications:Noctu rnal hypoxemia,COPD, group B, by GOLD 2017 classification ([facility]) Use 2 L/min(Oxygen) as directed continuous. concentrated and home fill with portability 1 Each 0 01/21/2021 Active Additional Information Patient not taking.Reported on 01/31/2023 Premarin 0.625 MG/GM Vaginal Cream (Estrogens, Conjugated)Indicatio ns:Postmenopausal atrophic vaginitis Administer into the vagina 0.5 g before bedtime. As directed.. 42.5 g 5 07/21/2021 Active Additional Information Patient not taking.Reported on 03/16/2023 Accu-Chek Leonora Plus In Vitro Strip (Glucose Blood)Indications:Ty pe 2 diabetes, HbA1C goal < 8% ([facility]) Test blood sugar 4 times a day 100 Strip 5 07/27/2021 Active BD Swab Single Use Regular Pad Use prior to testing 100 Each 5 07/27/2021 Active OneTouch Delica Lancets 33GIndications:Type 2 diabetes, HbA1C goal < 8% ([facility]) Use to test Blood 100 Each 5 07/27/2021 Active Pseudoephedrine HCl ER 120 MG Oral Tablet Extended Release 12 Hour Take 1 Tablet by mouth 2 times a day as needed. 0 Active Fluticasone Propionate 50 MCG/ACT Nasal SuspensionIndication s:Chronic rhinitis Administer into each nostril 2 Sprays in the morning. 18.2 mL 3 12/02/2021 Active Fluconazole 150 MG Oral Tablet (Diflucan) Take 1 Tablet by mouth once as needed. 0 Active Gabapentin 800 MG Oral Tablet (Neurontin)Indicatio ns:Thoracic and lumbosacral neuritis Take 1 Tablet by mouth in the morning. 90 Tablet 3 08/02/2022 Active Lisinopril 10 MG Oral Tablet (Prinivil)Indication s:Type 2 diabetes, HbA1C goal < 8% ([facility]),HTN, goal below 140/90 Take 1 Tablet by mouth in the morning. 90 Tablet 3 08/02/2022 Active metFORMIN HCl 500 MG Oral Tablet (Glucophage)Indicati ons:Type 2 diabetes, HbA1C goal < 8% ([facility]) Take 1 Tablet by mouth 2 times a day with morning and evening meals. 180 Tablet 3 08/09/2022 Active Diclofenac Sodium 1 % External Gel (Voltaren)Indication s:Tendonitis of ankle or foot Apply 2-4 grams to right foot four times daily as needed 150 g 3 10/27/2022 Active Nitroglycerin 0.4 MG Sublingual Tablet Sublingual (Nitrostat)Indicatio ns:Atherosclerosis of [place] coronary artery of [place] heart with angina pectoris (HCC) Place 1 Tablet under the tongue every 5 minutes as needed for Pain, Chest. up to 3 doses in 15 minutes 25 Tablet 11 10/27/2022 Active Empagliflozin 25 MG Oral Tablet (Jardiance)Indicatio ns:Type 2 diabetes, HbA1C goal < 8% (HCC) Take 1 Tablet by mouth in the morning. 90 Tablet 1 11/23/2022 Active EpiPen 2-Gualberto 0.3 MG/0.3ML Injection Solution Auto-injectorIndicat ions:Allergic reaction to bee sting For a severe reaction: Place orange end against the outer thigh, press firmly, hold in place for 10 seconds and go to the Emergency room. 1 Each 3 11/23/2022 Active Zoster Vac Recomb Adjuvanted 50 MCG/0.5ML Intramuscular Suspension Reconstituted (Shingrix)Indication s:Need for shingles vaccine Inject 0.5 mL into a large muscle now and repeat dose in 60 to 180 days 1 Each 1 12/05/2022 Active Atorvastatin Calcium 80 MG Oral Tablet (Lipitor)Indications :Mixed dyslipidemia Take 1 Tablet by mouth in the morning. 90 Tablet 3 12/25/2022 Active Folic Acid 1 MG Oral TabletIndications:Ir on deficiency anemia, unspecified iron deficiency anemia type Take 1 Tablet by mouth in the morning. 90 Tablet 5 12/25/2022 Active Sertraline HCl 25 MG Oral Tablet (Zoloft)Indications: Stressful life event affecting family Take 1 Tablet by mouth in the morning. 90 Tablet 1 02/14/2023 Active Furosemide 40 MG Oral Tablet (Lasix) Take 1 Tablet by mouth once a day on Sunday, Sunday, and Sunday only. 0 03/13/2023 Active Metoprolol Succinate ER 100 MG Oral Tablet Extended Release 24 Hour (toPROL XL) Take 1 Tablet by mouth in the morning and 1 Tablet before bedtime. 60 Tablet 5 03/16/2023 Active Sulfamethoxazole-Tri methoprim 800-160 MG Oral Tablet (Bactrim DS) Take 1 Tablet by mouth in the morning and 1 Tablet before bedtime. Until gone. 10 Tablet 0 03/29/2023 Active documented as of this encounter (statuses as of 04/23/2023) Active Problems Problem Noted Date Diagnosed Date Mitral valve insufficiency 03/16/2023 Atherosclerosis of [place] co ronary artery of [place] heart with angina pectoris 03/23/2022 Paroxysmal atrial fibrillation 12/20/2020 Chronic kidney disease, stage 3a 12/07/2020 Overview: Per CKD protocol Low serum vitamin B12 03/02/2020 COPD, group B, by GOLD 2017 classification 10/05 Overview: Per COPD GOLD Classification Major depressive disorder, recurrent, unspecifie d 05/05/2019 Centrilobular emphysema 01/29/2019 Nocturnal hypoxemia 09/25/2018 Diabetic polyneuropathy asso ciated with type 2 diabetes mellitus 10/30/2016 Type 2 diabetes, HbA1C goal < 8% 09/16/2013 Coronary atherosclerosis of [place] coronary tuan ry 02/21/2012 S/P angioplasty with stent 02/21/2012 Overview: Diagnonal #1. [facility] 02/16/12 Mixed dyslipidemia 01/05/2012 Tobacco use disorder 01/05/2012 Major depressive disorder 01/10/2011 Overview: ICD-10 update of inactive term Thoracic and lumbosacral neuritis 08/05/2007 Lumbosacral spondylosis 08/05/2007 Spinal stenosis of lumbar re gion without neurogenic claudication 08/05/2007 HTN, goal below 140/90 documented as of this encounter (statuses as of 04/23/2023) Resolved Problems Problem Noted Date Diagnosed Date Resolved Date Major depressive disorder, s xochilt episode, moderate 03/23/2022 03/16/2023 Atherosclerosis of [place] co ronary artery of [place] heart with angina pectoris 09/07/20172018 Inflammation of sacroiliac joint 09/07/2017 08/06/2019 Exertional chest pain 08/25/20152017 Neck pain 09/30/2012 01/11/2018 Acute blood loss anemia 02/21/201212/24 Severe obesity with body mas s index (BMI) of 35.0 to 39.9 with serious comorbidity 01/05/2012 Overview: bmi= 38.90 01/05/12 ICD-10 update of inactive diagnosis Myalgia 01/05/2012 01/11/2018 Encounter for examination fo r normal comparison and control in clinical research program 10/03/2011 10/03/2011 Overview: Diagnosis changed due to Research Module. Go to Snapshot for study details. Encounter for examination fo r normal comparison and control in clinical research program 10/03/2011 02/27/2013 Overview: Diagnosis changed due to Research Module. Go to Snapshot for study details. Special screening for malign ant neoplasms, colon 01/10/2011 01/11/2018 Dyslipidemia, goal to be determined 06/10/2009 01/05/2012 Overview: Per Lipid Taxonomy. Lumbago 08/05/2007 01/11/2018 Disorder of intervertebral disc 08/05/2007 01/11/2018 ADVANCE DIRECTIVE INFORMATION 12/15/2005 08/24/2017 Overview: No, Advance Directive brochure given to patient. Peptic ulcer 01/26/2003 01/11/2018 Mixed dyslipidemia 01/01/2003 12/ 9 Overview: Per Lipid Taxonomy. Tobacco use disorder 01/01/2003 012 DIVERTICULOSIS OF COLON 11/04/200212/24 documented as of this encounter (statuses as of 04/23/2023) Immunizations Name Administration Dates Next Due COVID-19 mRNA, LNP-s, No Pre serve, 2-Dose Series (Moderna) 11/16/2020,10/19/2020 PPD 03/06/2007,02/27/2007 Pneumococcal Conjugate Vacc, 13 Valent (Prevnar) 12/01/2019 Pneumococcal Polysaccharide PPV23 (Pneumovax) 03/13/2012 SEASONAL INFLUENZA, PF, 6 M & Above, IM , (FLULAVAL or FLUZONE) 03/24/2019,03/06/2018,05/26/2017 03/06/2019 Season Influenza, Quad, PF, Adjuvanted, 65+ Yrs, IM (FLUAD) 03/02/2020 Seasonal Influenza, Quadriva lent Hd (Fluzone Hd) 03/23/2022,02/24/2021 Seasonal Influenza, Quadriva lent, No Preserve, IM 03/21/2016,06/01/2015 Seasonal Influenza, Split, I IV3, With Preserve, Inj 08/12/2014,04/29/2013,03/13/2012,03/25,07/08/2010,04/16/2008,05/03/20 07 TD, Preservative Free 03/02/2008 TDAP (age 10 and older)(Boostrix) 10/05/2014 Varicella Zoster Vaccine (Adult) 07/30/2012 documented as of this encounter Social History Tobacco Use Types Packs/Day Years Used Date Smoking Tobacco: Every Day Cigarettes 1 30 Passive Smoke Exposure: Current Smokeless Tobacco: Never Passive Exposure Comments:Pt states only her own. Alcohol Use Standard Drinks/Week Comments No 0 (1 standard drink = 0.6 oz pur e alcohol) PHQ-2 Answer Date Recorded PHQ Adult Total Score 2 11/18/2021 Hunger Vital Sign Answer Date Recorded Worried About Running Out of Food in the Last Ye ar Never true 01/29/2019 Ran Out of Food in the Last Year Never true 01/29/2019 Sex and Gender Information Value Date Recorded Sex Assigned at Female 09/25/2018 10:25 AM EDT Gender Identity Female 09/25/2018 10:25 AM EDT Sexual Orientation Straight 09/25/2018 10 :25 AM EDT Job Start Date Occupation Industry Not on file Not on file Not on file documented as of this encounter Miscellaneous Notes * Telephone Encounter - Susan Larson LPN - 04/23/2023 4:50 PM EDT Spoke with pt. She state she has an appointment with a "kidney" doctor. Pt was made aware that a "kidney" doctor is the same as facilities manager doctor. She was relieved to hear that. Pt state she had anappointment on May.02 with the "kidney" doctor. * Telephone Encounter - Singh Oliva OSA - 04/23/2023 3:41 PM EDT Pt is calling to talk to Dr Rich about their Kidneys. Please call and tell them exactly what isgoing on with them. Best contact [phone] documented in this encounter Plan of Treatment Upcoming Encounters Date Type Department Care Team (Late st Contact Info) Description 05/01/2023 10:00 AM EST Office Visit Cardiology, [facility] [address] [facility] [place] [address] Crissy Redmond CRNP [address] [facility] [place] [address] 05/02/2023 3:20 PM EST Office Visit Nephrology, [facility] [address] [place] [address] Concepcion Vaca MD [address] [facility] [place] [address] 05/09/2023 7:30 AM EST Imaging Radiology [facility] [address] [facility] [address] [facility] [place] [address] 05/11/2023 11:10 AM EST Office Visit Family [facility] [address] [place] [id number] Amparo Rich, [address] [place] [address] 10/24/2023 3:00 PM EDT Office Visit Neurology, [place] [address] [place] [address] Oc Owens, [address] [place] [facility] [place] [address] Scheduled Procedures Name Priority Associated Diagnoses Date/Ti me COLONOSCOPY FLEXIBLE PROXIMAL DIAGNOSTIC Recall Gastrointestinal hemorrhage with melena History of colon polyps ESOPHAGOGASTRODUODENOSCOPY ( EGD), FLEXIBLE, TRANSORAL, DIAGNOSTIC Recall Gastrointestinal hemorrhage with melena History of colon polyps Health Maintenance Due Date Last Done Comments Alpha-1 Antitrypsin 1958 CKD PHOS USE SMARTSET 94034 1958 Hepatitis B (1 of 3 - Risk 3-dose series) 2002 Zoster Vaccines (2 of 3) 09/24/2012 07/30/2012 DISCUSS TOBACCO CESSATION (REFER TO SMARTSET #3291) 06/01/2016 06/01/2015 (Discussed) DXA Scan 07/18/2018 07/18/2011, 07/18/2011 *COPD SEVERITY VERIFIED BY PFT 02/01/2019 Albumin/Creatinine Ratio 11/18/2022 022, 08/24/2017, 10/30/2016, Additional history exists Depression Screening 11/18/2022 11/18/2021 COVID-19 Vaccine ( season) 2023 11/16/2020, 10/19/2020 Influenza Vaccine (FLU shot) (#1) 2023 03/23/2022, 02/24/2021, 03/02/2020, Additional history exists Diabetic Eye Exam 05/29/2023 05/29/2022, , 03/09/2016 COLONOSCOPY-EVERY 5 YRS AGES 18-100 08/02/2023 08/02/2018, 08/02/2018, 08/25/2011 Diabetic Foot Exam 08/02/2023 08/02/2022, 0 07/21/2021, 10/05/2020, Additional history exists GFR 10/12/2023 04/12/2023, 07/0 08/2022, 08/02/2022, Additional history exists HbA1c 10/12/2023 04/12/2023, 07/0 08/2022, 08/02/2022, Additional history exists CKD HGB USE SMARTSET 90187 04/12/202404/12, 08/02/2022, 11/18/2021, Additional history exists O2 ASSESSMENT COMPLETED IN PAST YEAR FOR COPD 04/12/2024 04/12/2023 DTaP,Tdap,and Td Vaccines (2 - Td or Tdap) 10/05/2024 10/05/2014, 03/02/2008 LUNG CANCER SCREENING - USE SMARTSET 26947 Completed 08/12/2019, 06/07/2019, 12/19/2018, Additional history exists Pneumococcal Vaccine: 65+ Years Completed 12/01/2019, 03/13/2012 GARDASIL-HPV IMMUNIZATION SERIES Aged Out No longer eligible based on patient's age to complete this topic MENINGOCOCCAL (MENACTRA/MENVEO) Aged Out No longer eligible based on patient's age to complete this topic documented as of this encounter Medical Devices Not on filedocumented as of this encounter Care Teams Employee Relations Manager Relationship Specialty Start Date End Date Amparo Rich DO [address] [place] [address] PCP - General Family Medicine 02/21/22 documented as of this encounter
--- OUTSIDE RECORDS SUMMARY | 2023-05-26 07:25 | External Medical Summary | Summary of Care ---
Author Name Unknown Organization [facility] Address [address] [facility] [address] Phone [phone] Care Team Providers Care Machine Filler Name Role Phone Amparo Rich DO Primary Care Provider [phone] Reason for Visit * Reason Onset Date Comments Order Request 05/08/2023 Encounter Details Date Type Department Care Team (Late st Contact Info) Description 05/08/2023 Telephone [place] [address] [place] [address] Amparo Rich DO [address] [place] [address] Order Request Allergies Active Allergy Reactions Criticality Noted Date Comments Bee Venom High 11/17/2011 Life threating reaction Morphine And Related 11/04/2002 vomitting with all types of pain meds documented as of this encounter (statuses as of 05/10/2023) Medications Medication Sig Dispensed Refills Start Date End Date Status EPIPEN 0.3 MG/0.3ML IJ DEVIIndications:Bee sting One injection into thigh as needed for severe allergic reaction 1 Device 5 10/08/2013 Active Blood Glucose Monitoring Suppl (ACCU-CHEK LEONORA PLUS) w/Device KITIndications:Type 2 diabetes, HbA1C goal < 8% ([facility]) Use 4 times a day to check [...] hypoxemia,COPD, group B, by GOLD 2017 classification (HCC) Use 2 L/min(Oxygen) as directed continuous. concentrated [...] pe 2 diabetes, HbA1C goal < 8% ([facility]) Test blood sugar 4 times a day 100 Strip 5 07/27/2021 Active BD Swab Single Use Regular Pad Use prior to testing 100 Each 5 07/27/2021 Active OneTouch Delica Lancets 33GIndications:Type 2 diabetes, HbA1C goal < 8% ([facility]) Use to test Blood 100 Each 5 [...] s:Type 2 diabetes, HbA1C goal < 8% (HCC),HTN, goal below 140/90 Take 1 Tablet by mouth in the morning. 90 Tablet 3 08/02/2022 Active metFORMIN HCl 500 MG Oral Tablet (Glucophage)Indicati ons:Type 2 diabetes, HbA1C goal < 8% (HCC) Take 1 Tablet by mouth 2 times a day with morning and evening meals. 180 Tablet 3 08/09/2022 Active Diclofenac Sodium 1 % External Gel (Voltaren)Indication s:Tendonitis of ankle or foot Apply 2-4 grams to right foot four times daily as needed 150 g 3 10/27/2022 Active Nitroglycerin 0.4 MG Sublingual Tablet Sublingual (Nitrostat)Indicatio ns:Atherosclerosis of [place] coronary artery of [place] heart with angina pectoris (HCC) Place 1 [...] Until gone. 10 Tablet 0 03/29/2023 Active busPIRone HCl 5 MG Oral Tablet (Buspar)Indications: CHAVO (generalized anxiety disorder) Take 1 Tablet by mouth 2 times a day as needed for Agitation. 60 Tablet 0 04/25/2023 Active documented as of this encounter (statuses as of 05/10/2023) Active Problems Problem Noted Date Diagnosed Date Mitral valve insufficiency 03/16/2023 Atherosclerosis of [place] co ronary artery of [place] heart with angina pectoris 03/23/2022 Paroxysmal atrial [...] goal < 8% 09/16/2013 Coronary atherosclerosis of [place] coronary tuan ry 02/21/2012 S/P angioplasty with stent 02/21/2012 Overview: Diagnonal #1. [facility] 02/16/12 Mixed dyslipidemia 01/05/2012 Tobacco use disorder 01/05/2012 Major depressive disorder 01/10/2011 Overview: ICD-10 update of inactive term Thoracic and lumbosacral neuritis 08/05/2007 Lumbosacral spondylosis 08/05/2007 Spinal stenosis of lumbar re gion without neurogenic claudication 08/05/2007 HTN, goal below 140/90 documented as of this encounter (statuses as of 05/10/2023) Resolved Problems Problem Noted Date Diagnosed Date Resolved Date Major depressive disorder, s xochilt episode, moderate 03/23/2022 03/16/2023 Atherosclerosis of [place] co ronary artery of [place] heart with angina pectoris 09/07/20172018 Inflammation of [...] patient. Peptic ulcer 01/26/2003 01/11/2018 Mixed dyslipidemia 01/01/200306/10/200 9 Overview: Per Lipid Taxonomy. Tobacco use disorder 01/01/2003 012 DIVERTICULOSIS OF COLON 11/04/200212/24 documented as of this encounter (statuses as of 05/10/2023) Immunizations Name Administration Dates Next Due COVID-19 [...] encounter Miscellaneous Notes * Telephone Encounter - Angelique Vincent OSA - 05/10/2023 10:42 AM EST Sher Albarran has sent a message stating MRI Pre Cert has been approved. Called patient and let her know she will need to call [facility] to schedule. Gave patient number to schedule. Also gave patient Auth #as they will ask patient for this when scheduling. Order and Auth info faxed to [facility]. 05/10/2023 * Telephone Encounter - Angelique Vincent OSA - 05/08/2023 1:26 PM EST Requested Pre Auth for [facility]. 05/08/2023 * Telephone Encounter - Lynette Holm LPN - 05/08/2023 11:30 AM EST Order is in Epic - per precert notes, [facility] is out of network with [employer] for MRI. Can this bescheduled elsewhere? * Telephone Encounter - Mona Mi OSA - 05/08/2023 11:19 AM EST An order was requested for this patient. Name of Requesting Provider: Patient Order Requested: MRI of head Diagnosis/Reason for Request: fall If order request is for Mammogram: Is the patient having any breast symptoms? N/A Is there a chance of ? N/A Has the patient had any breast problems in the past? NA What location AND department does the patient wish to have their order completed at? [facility] Fax Number, if applicable: N/A Call Back Number: [phone]. Patient said the insurance company cancelled it because it was an "expensive procedure." And they need some sort of authorization for it to happen. She would really like to have it because of her fall. Please advise on what can be done. If the caller is not a current patient, please advise the patient to call their current PCP to havethe order's prior to being seen in our office. The patient was informed that our providers would not order anything (medication, labs, etc.) prior to being seen. documented in this encounter Plan of Treatment Upcoming Encounters Date Type Department Care Team (Late st Contact Info) Description 10/24/2023 3:00 PM EDT Office Visit Neurology, [place] [address] [place] [address] [address] [place], [address], [place] [id number] Scheduled Procedures Name Priority Associated Diagnoses Date/Ti me COLONOSCOPY FLEXIBLE PROXIMAL DIAGNOSTIC Recall Gastrointestinal hemorrhage with melena History of colon polyps ESOPHAGOGASTRODUODENOSCOPY ( EGD), FLEXIBLE, TRANSORAL, DIAGNOSTIC Recall Gastrointestinal hemorrhage with melena History of colon polyps Health Maintenance Due Date Last Done Comments Alpha-1 Antitrypsin 1958 CKD PHOS USE SMARTSET 34636 1958 Hepatitis B (1 of 3 - [...] exists Diabetic Eye Exam 05/29/2023 05/29/2022, , 03/09/2016, Additional history exists COLONOSCOPY-EVERY 5 YRS AGES 18-100 08/02/2023 08/02/2018, 08/02/2018, 08/25/2011 Diabetic Foot Exam 08/02/2023 08/02/2022, 0 07/21/2021, 10/05/2020, Additional history exists GFR 10/12/2023 04/12/2023, 07/0 08/2022, 08/02/2022, Additional history exists HbA1c 10/12/2023 04/12/2023, 07/0 08/2022, 08/02/2022, Additional history exists CKD HGB USE SMARTSET 43783 04/12/202404/12, 08/02/2022, 11/18/2021, Additional history exists O2 ASSESSMENT COMPLETED IN PAST YEAR FOR COPD 04/12/2024 04/12/2023 DTaP,Tdap,and Td Vaccines (2 - Td or Tdap) 10/05/2024 10/05/2014, 03/02/2008 LUNG CANCER SCREENING - USE SMARTSET 69095 Completed 08/12/2019, 06/07/2019, 12/19/2018, Additional history exists Pneumococcal Vaccine: 65+ Years Completed 12/01/2019, 03/13/2012 GARDASIL-HPV IMMUNIZATION SERIES Aged Out No longer eligible based on patient's age to complete this topic MENINGOCOCCAL (MENACTRA/MENVEO) Aged Out No longer eligible based on patient's age to complete this topic documented as of this encounter Medical Devices Not on filedocumented as of this encounter Care Teams Machine Filler Relationship Specialty Start Date End Date Amparo Rich DO [address] [place] [facility] [place] [address] PCP - General Family Medicine 02/21/22 documented as of this encounter
--- OUTSIDE RECORDS SUMMARY | 2023-05-26 07:25 | External Medical Summary | Summary of Care ---
Author Name Unknown Organization [facility] Address [address] [facility] [address] Phone [phone] Care Team Providers Care Chucking And Sawing Machine Operator Name Role Phone Amparo Rich DO Primary Care Provider Reason for Visit * Reason Onset Date Comments Advice 04/23/2023 Encounter Details Date Type Department Care Team (Late st Contact Info) Description 04/23/2023 Telephone [place] [address] [place] [address] Amparo Rich DO [address] [place] [address] Advice Allergies Active Allergy Reactions Criticality Noted Date Comments Bee Venom High 11/17/2011 Life threating reaction Morphine And Related 11/04/2002 vomitting with all types of pain meds documented as of this encounter (statuses as of 05/02/2023) Medications Medication Sig Dispensed Refills Start Date End Date Status EPIPEN 0.3 MG/0.3ML IJ DEVIIndications:Bee sting One injection into thigh as needed for severe allergic reaction 1 Device 5 10/08/2013 Active Blood Glucose Monitoring Suppl (ACCU-CHEK LEONORA PLUS) w/Device KITIndications:Type 2 diabetes, HbA1C goal < 8% ([facility]) Use 4 times a day to [...] hypoxemia,COPD, group B, by GOLD 2017 classification ([facility]) Use 2 L/min(Oxygen) as directed continuous. concentrated [...] diabetes, HbA1C goal < 8% ([facility]) Test blood sugar 4 times a day 100 Strip 5 07/27/2021 Active BD Swab Single Use Regular Pad Use prior to testing 100 Each 5 07/27/2021 Active OneTouch Delica Lancets 33GIndications:Type 2 diabetes, HbA1C goal < 8% ([facility]) Use to test Blood 100 Each [...] s:Type 2 diabetes, HbA1C goal < 8% ([facility]),HTN, goal below 140/90 Take 1 Tablet by mouth in the morning. 90 Tablet 3 08/02/2022 Active metFORMIN HCl 500 MG Oral Tablet (Glucophage)Indicati ons:Type 2 diabetes, HbA1C goal < 8% ([facility]) Take 1 Tablet by mouth 2 times a day with morning and evening meals. 180 Tablet 3 08/09/2022 Active Diclofenac Sodium 1 % External Gel (Voltaren)Indication s:Tendonitis of ankle or foot Apply 2-4 grams to right foot four times daily as needed 150 g 3 10/27/2022 Active Nitroglycerin 0.4 MG Sublingual Tablet Sublingual (Nitrostat)Indicatio ns:Atherosclerosis of [place] coronary artery of [place] heart with angina pectoris (HCC) Place 1 [...] as of this encounter (statuses as of 05/02/2023) Active Problems Problem Noted Date Diagnosed Date Mitral valve insufficiency 03/16/2023 Atherosclerosis of [place] co ronary artery of [place] heart with angina pectoris 03/23/2022 Paroxysmal atrial [...] goal < 8% 09/16/2013 Coronary atherosclerosis of [place] coronary tuan ry 02/21/2012 S/P angioplasty with stent 02/21/2012 Overview: Diagnonal #1. [facility] 02/16/12 Mixed dyslipidemia 01/05/2012 Tobacco use disorder 01/05/2012 Major depressive disorder 01/10/2011 Overview: ICD-10 update of inactive term Thoracic and lumbosacral neuritis 08/05/2007 Lumbosacral spondylosis 08/05/2007 Spinal stenosis of lumbar re gion without neurogenic claudication 08/05/2007 HTN, goal below 140/90 documented as of this encounter (statuses as of 05/02/2023) Resolved Problems Problem Noted Date Diagnosed Date Resolved Date Major depressive disorder, s xochilt episode, moderate 03/23/2022 03/16/2023 Atherosclerosis of [place] co ronary artery of [place] heart with angina pectoris 09/07/20172018 Inflammation of [...] patient. Peptic ulcer 01/26/2003 01/11/2018 Mixed dyslipidemia 01/01/200306/10/ 9 Overview: Per Lipid Taxonomy. Tobacco use disorder 01/01/2003 012 DIVERTICULOSIS OF COLON 11/04/200212/24 documented as of this encounter (statuses as of 05/02/2023) Immunizations Name Administration Dates Next Due COVID-19 [...] encounter Miscellaneous Notes * Telephone Encounter - Lynette Holm LPN - 05/02/2023 6:46 PM EST Pt picked up med * Telephone Encounter - Susan Larson LPN - 04/25/2023 2:59 PM EDT left message on machine for pt to call office Please make pt aware of previous message. RX was called in for pt. * Telephone Encounter - Amparo Rich DO - 04/25/2023 2:52 PM EDT Discussed with nurse Susan about anti anxiety medications. I will send in Buspar to use as needed. Keep appt on may 11 * Telephone Encounter - Jimena Valle CCMA - 04/25/2023 1:58 PM EDT Called patient. Left message on answering machine to call office. * Telephone Encounter - Amparo Rich DO - 04/25/2023 1:18 PM EDT Typically there is a form to complete, does she want me to write for home care? * Telephone Encounter - Preston Sánchez OSA - 04/23/2023 2:25 PM EDT Patient calling requesting a letter for a home child care attendant states that insurance company said she mustget a letter from pcp stating why she would need home care in order to start the process documented in this encounter Plan of Treatment Upcoming Encounters Date Type Department Care Team ([facility] Contact Info) Description 05/07/2023 1:00 PM EST Office Visit Nephrology [facility], [address] [place] [phone] Shaan Morris MD [address] [facility] [place] [address] 05/11/2023 11:10 AM EST Office Visit Family [facility] [address] [place] [phone] Amparo Rich, [address], [place] [id number] 10/24/2023 3:00 PM EDT Office Visit Neurology, [place] [address] [place] [address] [address] [place], [address] [place] [address] Scheduled Procedures Name Priority Associated Diagnoses Date/Ti me COLONOSCOPY FLEXIBLE PROXIMAL DIAGNOSTIC Recall Gastrointestinal hemorrhage with melena History of colon polyps ESOPHAGOGASTRODUODENOSCOPY ( EGD), FLEXIBLE, TRANSORAL, DIAGNOSTIC Recall Gastrointestinal hemorrhage with melena History of colon polyps Health Maintenance Due Date Last Done Comments Alpha-1 Antitrypsin 1958 CKD PHOS USE SMARTSET 22294 1958 Hepatitis B (1 of 3 - Risk 3-dose series) 2002 Zoster Vaccines (2 of 3) 09/24/2012 07/30/2012 DISCUSS TOBACCO CESSATION (REFER TO SMARTSET #9805) 06/01/2016 06/01/2015 (Discussed) DXA Scan 07/18/2018 07/18/2011, [...] Additional history exists CKD HGB USE SMARTSET 77086 04/12/202404/12, 08/02/2022, 11/18/2021, Additional history exists O2 ASSESSMENT COMPLETED IN PAST YEAR FOR COPD 04/12/2024 04/12/2023 DTaP,Tdap,and Td Vaccines (2 - Td or Tdap) 10/05/2024 10/05/2014, 03/02/2008 LUNG CANCER SCREENING - USE SMARTSET 15045 Completed 08/12/2019, 06/07/2019, 12/19/2018, Additional history exists Pneumococcal Vaccine: 65+ Years Completed 12/01/2019, 03/13/2012 GARDASIL-HPV IMMUNIZATION SERIES Aged Out No longer eligible based on patient's age to complete this topic MENINGOCOCCAL (MENACTRA/MENVEO) Aged Out No longer eligible based on patient's age to complete this topic documented as of this encounter Medical Devices Not on filedocumented as of this encounter Visit Diagnoses Diagnosis CHAVO (generalized anxiety disorder)- Primary Generalized anxiety disorder documented in this encounter Care Teams Chucking And Sawing Machine Operator Relationship Specialty Start Date End Date Amparo Rich DO [address] [facility] [place] [address] PCP - General Family Medicine 02/21/22 documented as of this encounter
--- OUTSIDE RECORDS SUMMARY | 2023-05-26 07:25 | External Medical Summary | Summary of Care ---
Author Name Unknown Organization [facility] Address [address] [facility] [address] Phone [phone] Care Team Providers Care Car Checker Name Role Phone Amparo Rich DO Primary Care Provider Reason for Visit * Reason Onset Date Comments Med Request 04/19/2023 Encounter Details Date Type Department Care Team (Late st Contact Info) Description 04/19/2023 Telephone [place] [address] [place] [address] Amparo Rich DO [address] [place] [address] Med Request Allergies Active Allergy Reactions Criticality Noted Date Comments Bee Venom High 11/17/2011 Life threating reaction Morphine And Related 11/04/2002 vomitting with all types of pain meds documented as of this encounter (statuses as of 04/25/2023) Medications Medication Sig Dispensed Refills Start Date End Date Status EPIPEN 0.3 MG/0.3ML IJ DEVIIndications:Bee sting One injection into thigh as needed for severe allergic reaction 1 Device 5 10/08/2013 Active Blood Glucose Monitoring Suppl (ACCU-CHEK LEONORA PLUS) w/Device KITIndications:Type 2 diabetes, HbA1C goal < 8% ([facility]) Use 4 times a day to [...] hypoxemia,COPD, group B, by GOLD 2017 classification ([facility]) Use 2 L/min(Oxygen) as directed continuous. [...] pe 2 diabetes, HbA1C goal < 8% ([facility]) Test blood sugar 4 times a day 100 Strip 5 07/27/2021 Active BD Swab Single Use Regular Pad Use prior to testing 100 Each 07/27/2021 Active OneTouch Delica Lancets 33GIndications:Type 2 diabetes, HbA1C goal < 8% ([facility]) Use to test Blood 100 Each [...] s:Type 2 diabetes, HbA1C goal < 8% ([facility]),HTN, goal below 140/90 Take 1 Tablet by mouth in the morning. 90 Tablet 3 08/02/2022 Active metFORMIN HCl 500 MG Oral Tablet (Glucophage)Indicati ons:Type 2 diabetes, HbA1C goal < 8% ([facility]) Take 1 Tablet by mouth 2 times a day with morning and evening meals. 180 Tablet 3 08/09/2022 Active Diclofenac Sodium 1 % External Gel (Voltaren)Indication s:Tendonitis of ankle or foot Apply 2-4 grams to right foot four times daily as needed 150 g 3 10/27/2022 Active Nitroglycerin 0.4 MG Sublingual Tablet Sublingual (Nitrostat)Indicatio ns:Atherosclerosis of [place] coronary artery of [place] heart with angina pectoris (HCC) Place 1 [...] as of this encounter (statuses as of 04/25/2023) Active Problems Problem Noted Date Diagnosed Date Mitral valve insufficiency 03/16/[address] [place] [place] co ronary artery of [place] heart with angina pectoris 03/23/2022 Paroxysmal atrial [...] goal < 8% 09/16/[address] [place] coronary tuan ry 02/21/2012 S/P angioplasty with stent 02/21/2012 Overview: Diagnonal #1. [facility] 02/16/12 Mixed dyslipidemia 01/05/2012 Tobacco use disorder 01/05/2012 Major depressive disorder 01/10/2011 Overview: ICD-10 update of inactive term Thoracic and lumbosacral neuritis 08/05/2007 Lumbosacral spondylosis 08/05/2007 Spinal stenosis of lumbar re gion without neurogenic claudication 08/05/2007 HTN, goal below 140/90 documented as of this encounter (statuses as of 04/25/2023) Resolved Problems Problem Noted Date Diagnosed Date Resolved Date Major depressive disorder, s xochilt episode, moderate 03/23/2022 03/16/[address] [place] co ronary artery of [place] heart with angina pectoris 09/07/20172018 Inflammation of [...] as of this encounter (statuses as of 04/25/2023) Immunizations Name Administration Dates Next Due COVID-19 [...] Encounter - Susan Larson LPN - 04/25/2023 2:56 PM EDT See other encounter. * Telephone Encounter - Amparo Rich DO - 04/23/2023 2:14 PM EDT There are a number of encounters regarding family members worried about her, and her driving and anxiety Please contact the patient and see how she is doing and how we can assist her. * Telephone Encounter - Mukul Comer MD - 04/20/2023 2:22 PM EDT This can be handled by Dr Rich * Telephone Encounter - Jimena Valle CCMA - 04/20/2023 8:30 AM EDT Please advise as below. Thank you. * Telephone Encounter - Isatu Price OSA - 04/19/2023 4:11 PM EDT Pt calling checking to see if anything has been sent in for her yet regarding her nerves. Pt is requesting a return call documented in this encounter Plan of Treatment Upcoming Encounters Date Type Department Care Team (Late st Contact Info) Description 05/01/2023 10:00 AM EST Office Visit Cardiology, [facility] [address] [facility] [place] [address] Crissy Redmond CRNP [address] [place] [address] 05/02/2023 3:20 PM EST Office Visit Nephrology, [facility] [address] [place] [address] Concepcion Vaca MD [address] [facility] [place] [address] 05/11/2023 11:10 AM EST [address] [phone] Amparo Rich, DO [address] [place] [address] 10/24/2023 3:00 PM EDT Office Visit Neurology, [place] [address] [place] [address] Graciela Madhushilpa Theresa, [address] [place] [address] Scheduled Procedures Name Priority Associated Diagnoses Date/Ti me COLONOSCOPY FLEXIBLE PROXIMAL DIAGNOSTIC Recall Gastrointestinal hemorrhage with melena History of colon polyps ESOPHAGOGASTRODUODENOSCOPY ( EGD), FLEXIBLE, TRANSORAL, DIAGNOSTIC Recall Gastrointestinal hemorrhage with melena History of colon polyps Health Maintenance Due Date Last Done Comments Alpha-1 Antitrypsin 1958 CKD PHOS USE SMARTSET 12740 1958 Hepatitis B (1 of 3 - Risk 3-dose series) 2002 Zoster Vaccines (2 of 3) 09/24/2012 07/30/2012 DISCUSS TOBACCO CESSATION (REFER TO SMARTSET #3291) 06/01/2016 06/01/2015 (Discussed) DXA Scan 07/18/2018 07/18/2011, 07/18/2011 *COPD SEVERITY VERIFIED BY PFT 02/01/2019 Albumin/Creatinine Ratio 11/18/2022 022, 08/24/2017, 10/30/2016, Additional history exists Depression Screening 11/18/2022 11/18/2021 COVID-19 Vaccine ( - season) 2023 11/16/2020, 10/19/2020 Influenza Vaccine (FLU [...] Additional history exists CKD HGB USE SMARTSET 65053 04/12/202404/12, 08/02/2022, 11/18/2021, Additional history exists O2 ASSESSMENT COMPLETED IN PAST YEAR FOR COPD 04/12/2024 04/12/2023 DTaP,Tdap,and Td Vaccines (2 - Td or Tdap) 10/05/2024 10/05/2014, 03/02/2008 LUNG CANCER SCREENING - USE SMARTSET 01858 Completed 08/12/2019, 06/07/2019, 12/19/2018, Additional history exists Pneumococcal Vaccine: 65+ Years Completed 12/01/2019, 03/13/2012 GARDASIL-HPV IMMUNIZATION SERIES Aged Out No longer eligible based on patient's age to complete this topic MENINGOCOCCAL (MENACTRA/MENVEO) Aged Out No longer eligible based on patient's age to complete this topic documented as of this encounter Medical Devices Not on filedocumented as of this encounter Care Teams Car Checker Relationship Specialty Start Date End Date Amparo Rich DO [address] [place] [address] PCP - General Family Medicine 02/21/22 documented as of this encounter
--- OUTSIDE RECORDS SUMMARY | 2023-05-26 07:25 | External Medical Summary | Summary of Care ---
Author Name Unknown Organization [facility] Address [address] [address] Phone [phone] Care Team Providers Care Greenhouse Florist Name Role Phone Casey Rich DO Primary Care Provider + [phone] Reason for Visit * Reason Comments eRx-Medication Refill Encounter Details Date Type Department Care Team (Late st Contact Info) Description 05/20/2023 Refill [place] [address] [place] [address] Casey Rich DO [address] [place] [address] CHAVO (generalized anxiety disorder) Allergies Active Allergy Reactions Criticality Noted Date Comments Bee Venom High 11/17/2011 Life threating reaction Morphine And Related 11/04/2002 vomitting with all types of pain meds documented as of this encounter (statuses as of 05/21/2023) Medications Medication Sig Dispensed Refills Start Date End Date Status EPIPEN 0.3 MG/0.3ML IJ DEVIIndications:Be e sting One injection into thigh as needed for severe allergic reaction 1 Device 5 4 Active Blood Glucose Monitoring Suppl (ACCU-CHEK LEONORA PLUS) w/Device KITIndications:Typ e 2 diabetes, HbA1C goal < 8% ([facility]) Use 4 times a day to check blood sugar. 1 Kit 0 9 Active Cyanocobalamin (B-12-SL) 1000 MCG SL TabletIndications: Low serum vitamin B12 Place 1,000 mcg under the tongue daily. 90 Tab 3 0 Active oxygen IN GASIndications:Noc turnal hypoxemia 2 L of oxygen while sleeping 1 Each 0 1 Active Additional Information Patient not taking.Reported on 01/31/2023 oxygen IN GASIndications:Noc turnal hypoxemia,COPD, group B, by GOLD 2017 classification (HCC) Use 2 L/min(Oxygen) as directed continuous. concentrated and home fill with portability 1 Each 0 1 Active Additional Information Patient not taking.Reported on 01/31/2023 Premarin 0.625 MG/GM Vaginal Cream (Estrogens, Conjugated)Indicat ions:Postmenopausa l atrophic vaginitis Administer into the vagina 0.5 g before bedtime. As directed.. 42.5 g 5 2 Active Additional Information Patient not taking.Reported on 03/16/2023 Accu-Chek Leonora Plus In Vitro Strip (Glucose Blood)Indications: Type 2 diabetes, HbA1C goal < 8% ([facility]) Test blood sugar 4 times a day 100 Strip 5 2 Active BD Swab Single Use Regular Pad Use prior to testing 100 Each 5 2 Active OneTouch Delica Lancets 33GIndications:Typ e 2 diabetes, HbA1C goal < 8% ([facility]) Use to test Blood 100 Each 5 2 Active Pseudoephedrine HCl ER 120 MG Oral Tablet Extended Release 12 Hour Take 1 Tablet by mouth 2 times a day as needed. 0 Active Fluticasone Propionate 50 MCG/ACT Nasal SuspensionIndicati ons:Chronic rhinitis Administer into each nostril 2 Sprays in the morning. 18.2 mL 3 2 Active Fluconazole 150 MG Oral Tablet (Diflucan) Take 1 Tablet by mouth once as needed. 0 Active Gabapentin 800 MG Oral Tablet (Neurontin)Indicat ions:Thoracic and lumbosacral neuritis Take 1 Tablet by mouth in the morning. 90 Tablet 3 3 Active Lisinopril 10 MG Oral Tablet (Prinivil)Indicati ons:Type 2 diabetes, HbA1C goal < 8% (HCC),HTN, goal below 140/90 Take 1 Tablet by mouth in the morning. 90 Tablet 3 3 Active metFORMIN HCl 500 MG Oral Tablet (Glucophage)Indica tions:Type 2 diabetes, HbA1C goal < 8% (HCC) Take 1 Tablet by mouth 2 times a day with morning and evening meals. 180 Tablet 3 3 Active Diclofenac Sodium 1 % External Gel (Voltaren)Indicati ons:Tendonitis of ankle or foot Apply 2-4 grams to right foot four times daily as needed 150 g 3 3 Active Nitroglycerin 0.4 MG Sublingual Tablet Sublingual (Nitrostat)Indicat ions:Atheroscleros is of [place] coronary artery of [place] heart with angina pectoris (HCC) Place 1 Tablet under the tongue every 5 minutes as needed for Pain, Chest. up to 3 doses in 15 minutes 25 Tablet 11 3 Active Empagliflozin 25 MG Oral Tablet (Jardiance)Indicat ions:Type 2 diabetes, HbA1C goal < 8% (HCC) Take 1 Tablet by mouth in the morning. 90 Tablet 1 3 Active EpiPen 2-Gualberto 0.3 MG/0.3ML Injection Solution Auto-injectorIndic ations:Allergic reaction to bee sting For a severe reaction: Place orange end against the outer thigh, press firmly, hold in place for 10 seconds and go to the Emergency room. 1 Each 3 3 Active Zoster Vac Recomb Adjuvanted 50 MCG/0.5ML Intramuscular Suspension Reconstituted (Shingrix)Indicati ons:Need for shingles vaccine Inject 0.5 mL into a large muscle now and repeat dose in 60 to 180 days 1 Each 1 3 Active Atorvastatin Calcium 80 MG Oral Tablet (Lipitor)Indicatio ns:Mixed dyslipidemia Take 1 Tablet by mouth in the morning. 90 Tablet 3 3 Active Folic Acid 1 MG Oral TabletIndications: Iron deficiency anemia, unspecified iron deficiency anemia type Take 1 Tablet by mouth in the morning. 90 Tablet 5 3 Active Sertraline HCl 25 MG Oral Tablet (Zoloft)Indication s:Stressful life event affecting family Take 1 Tablet by mouth in the morning. 90 Tablet 1 3 Active Furosemide 40 MG Oral Tablet (Lasix) Take 1 Tablet by mouth once a day on Sunday, Sunday, and Sunday only. 0 3 Active Metoprolol Succinate ER 100 MG Oral Tablet Extended Release 24 Hour (toPROL XL) Take 1 Tablet by mouth in the morning and 1 Tablet before bedtime. 60 Tablet 5 3 Active Sulfamethoxazole-T rimethoprim 800-160 MG Oral Tablet (Bactrim DS) Take 1 Tablet by mouth in the morning and 1 Tablet before bedtime. Until gone. 10 Tablet 0 3 Active busPIRone HCl 5 MG Oral Tablet (Buspar)Indication s:CHAVO (generalized anxiety disorder) take 1 tablet by mouth twice a day if needed for AGITATION 60 Tablet 0 3 Active busPIRone HCl 5 MG Oral Tablet (Buspar)Indication s:CHAVO (generalized anxiety disorder) Take 1 Tablet by mouth 2 times a day as needed for Agitation. 60 Tablet 0 3 05/21/20 23 Discontinued documented as of this encounter (statuses as of 05/21/2023) Active Problems Problem Noted Date Diagnosed Date Mitral valve insufficiency 03/16/2023 Atherosclerosis of [place] co ronary artery of [place] heart with angina pectoris 03/23/2022 Paroxysmal atrial [...] goal < 8% 09/16/2013 Coronary atherosclerosis of [place] coronary tuan ry 02/21/2012 S/P angioplasty with stent 02/21/2012 Overview: Diagnonal #1. [facility] 02/16/12 Mixed dyslipidemia 01/05/2012 Tobacco use disorder 01/05/2012 Major depressive disorder 01/10/2011 Overview: ICD-10 update of inactive term Thoracic and lumbosacral neuritis 08/05/2007 Lumbosacral spondylosis 08/05/2007 Spinal stenosis of lumbar re gion without neurogenic claudication 08/05/2007 HTN, goal below 140/90 documented as of this encounter (statuses as of 05/21/2023) Resolved Problems Problem Noted Date Diagnosed Date Resolved Date Major depressive disorder, s xochilt episode, moderate 03/23/2022 03/16/2023 Atherosclerosis of [place] co ronary artery of [place] heart with angina pectoris 09/07/20172018 Inflammation of [...] as of this encounter (statuses as of 05/21/2023) Immunizations Name Administration Dates Next Due COVID-19 [...] encounter Miscellaneous Notes * Telephone Encounter - Casey Rich DO - 05/21/2023 1:38 PM ESTSigned Prescriptions: Disp Refills busPIRone HCl 5 MG Oral Tablet (Buspar) 60 Tab*0 Sig: take 1 tablet by mouth twice a day if needed for AGITATION Authorizing Provider: CASEY RICH * Telephone Encounter - Sarina Wilson [facility] - 05/21/2023 12:16 PM ESTPending Prescriptions: Disp Refills busPIRone HCl 5 MG Oral Tablet [Pharmacy M*60 Tab*0 Sig: take 1 tablet by mouth twice a day if needed for AGITATION * Telephone Encounter - Sarina Wilson [facility] - 05/21/2023 12:16 PM EST [facility] is currently not authorized to approve refills for the pended medication(s) per refill protocol. Please approve if appropriate. Did you pend patient's preferred pharmacy and medication before forwarding?yes Pharmacy: [id number] Pending Prescriptions: Disp Refills busPIRone HCl 5 MG Oral Tablet [Pharmacy M*60 Tab*0 Sig: take 1 tablet by mouth twice a day if needed for AGITATION Last Visit: 04/12/2023 (in office), Visit date not found (telemedicine) Next Visit: Visit date not found If no future appointments scheduled, and last appointment is greater than a year ago, please schedule patient for a follow-up appointment Last date the medication was ordered: 04/25/23 Is this request for a controlled substance?No Urine Drug Screen: Results for orders placed or performed in visit on 09/07/17 OPIOIDS/BENZO COMPLIANCE MONITORING TEST Result Value URINE DRUG SCREEN RESULT Amphetamine NEGATIVE Barbiturates NEGATIVE Benzodiazepines NEGATIVE Cannabinoids NEGATIVE Cocaine Metabolite NEGATIVE METHADONE METABOLITE NEGATIVE Morphine / Codeine NEGATIVE OXYCODONE NEGATIVE COMMENT THE ABOVE SCREENING RESULTS ARE PRESUMPTIVE AND CAN ONLY BE USED FOR MEDICAL PURPOSES. CONFIRMATORY TESTING IS AVAILABLE UPON REQUEST. Cutoff Concentration URINE VALID INTERP NORMAL CREATININE KANDY 122 NITRITE KANDY 16 pH KANDY 5.2 *Note: Due to a large number of results and/or encounters for the requested time period, some results have not been displayed. A complete set of results can be found in Results Review. Patient Phone Numbers [employer] [phone] Labs: Lab Results Component Value Date/Time CREAT 1.6 (H) 04/12/2023 01:10 PM CREAT 0.9 03/24/2020 08:32 AM POTASSIUM 3.7 04/12/2023 01:10 PM POTASSIUM 4.4 02/24/2020 07:34 AM TSH 3.39 04/12/2023 01:10 PM TSH 1.79 02/24/2020 07:34 AM LDLCALC 150 (H) 12/25/2022 11:01 AM LDLCALC 158 (H) 02/24/2020 07:34 AM LDLDIRECT 202 (H) 11/18/2021 10:10 AM LDLDIRECT NOT APPLICABLE 02/24/2020 07:34 AM LDLDIRECT 109 02/11/2013 09:45 AM ALT 15 08/02/2022 01:26 PM ALT 13 02/24/2020 07:34 AM HGBA1C 8.0 (H) 04/12/2023 01:10 PM HGBA1C 7.3 (H) 02/24/2020 07:34 AM Thank You, Sarina Wilson [facility] Pharmacist Telepharmacy [phone] 05/21/2023, 12:16 PM documented in this encounter Plan of Treatment Upcoming Encounters Date Type Department Care Team (Late st Contact Info) Description 05/28/2023 2:30 PM EST Office Visit Cardiology, [facility] [address] [place] [address] Crissy Redmond CRNP [address] [place] [address] 10/24/2023 3:00 PM EDT Office Visit Neurology, [place] [address] [place] [address] [facility], [address] [place] [address] Scheduled Procedures Name Priority Associated Diagnoses Date/Ti me COLONOSCOPY FLEXIBLE PROXIMAL DIAGNOSTIC Recall Gastrointestinal hemorrhage with melena History of colon polyps ESOPHAGOGASTRODUODENOSCOPY ( EGD), FLEXIBLE, TRANSORAL, DIAGNOSTIC Recall Gastrointestinal hemorrhage with melena History of colon polyps Health Maintenance Due Date Last Done Comments Alpha-1 Antitrypsin 1958 CKD PHOS USE SMARTSET 98689 1958 Hepatitis B (1 of 3 - Risk 3-dose series) 2002 Zoster Vaccines (2 of 3) 09/24/2012 07/30/2012 DISCUSS TOBACCO CESSATION (REFER TO SMARTSET #9276) 06/01/2016 06/01/2015 (Discussed) DXA Scan 07/18/2018 07/18/2011, [...] Additional history exists CKD HGB USE SMARTSET 74420 04/12/202404/12, 08/02/2022, 11/18/2021, Additional history exists O2 ASSESSMENT COMPLETED IN PAST YEAR FOR COPD 04/12/2024 04/12/2023 DTaP,Tdap,and Td Vaccines (2 - Td or Tdap) 10/05/2024 10/05/2014, 03/02/2008 LUNG CANCER SCREENING - USE SMARTSET 20842 Completed 08/12/2019, 06/07/2019, 12/19/2018, Additional history exists [...] encounter Visit Diagnoses Diagnosis CHAVO (generalized anxiety disorder) Generalized anxiety disorder documented in this encounter Care Teams Greenhouse Florist Relationship Specialty Start Date End Date Casey Rich DO [address] [place] [address] PCP - General Family Medicine 02/21/22 documented as of this encounter
--- OUTSIDE RECORDS SUMMARY | 2023-05-26 07:25 | External Medical Summary | Summary of Care ---
Author Name Unknown Organization [facility] Address [address] [place] [address] Phone [phone] Care Team Providers Care Chain Person Name Role Phone HarrisAmparo valverde Primary Care Provider Encounter Details Date Type Department Care Team (Late st Contact Info) Description 04/30/2023 Telephone Access Center, [place] [address] *DO NOT REMOVE THIS DEPARTMENT* [place] [address] Services, Scheduling [address] [place] [address] Allergies Active Allergy Reactions Criticality Noted Date Comments Bee Venom High 11/17/2011 Life threating reaction Morphine And Related 11/04/2002 vomitting with all types of pain meds documented as of this encounter (statuses as of 04/30/2023) Medications Medication Sig Dispensed Refills Start Date End Date Status EPIPEN 0.3 MG/0.3ML IJ DEVIIndications:Bee sting One injection into thigh as needed for severe allergic reaction 1 Device 5 10/08/2013 Active Blood Glucose Monitoring Suppl (ACCU-CHEK LEONORA PLUS) w/Device KITIndications:Type 2 diabetes, HbA1C goal < 8% ([facility]) Use 4 times a day to check [...] hypoxemia,COPD, group B, by GOLD 2017 classification ([facility]) Use 2 L/min(Oxygen) as directed continuous. concentrated [...] pe 2 diabetes, HbA1C goal < 8% ([facility]) Test blood sugar 4 times a day 100 Strip 5 07/27/2021 Active BD Swab Single Use Regular Pad Use prior to testing 100 Each 5 07/27/2021 Active OneTouch Delica Lancets 33GIndications:Type 2 diabetes, HbA1C goal < 8% ([facility]) Use to test Blood 100 Each 5 [...] s:Type 2 diabetes, HbA1C goal < 8% ([facility]),HTN, goal below 140/90 Take 1 Tablet by mouth in the morning. 90 Tablet 3 08/02/2022 Active metFORMIN HCl 500 MG Oral Tablet (Glucophage)Indicati ons:Type 2 diabetes, HbA1C goal < 8% ([facility]) Take 1 Tablet by mouth 2 times a day with morning and evening meals. 180 Tablet 3 08/09/2022 Active Diclofenac Sodium 1 % External Gel (Voltaren)Indication s:Tendonitis of ankle or foot Apply 2-4 grams to right foot four times daily as needed 150 g 3 10/27/2022 Active Nitroglycerin 0.4 MG Sublingual Tablet Sublingual (Nitrostat)Indicatio ns:Atherosclerosis of [place] coronary artery of [place] heart with angina pectoris (HCC) Place 1 [...] as of this encounter (statuses as of 04/30/2023) Active Problems Problem Noted Date Diagnosed Date Mitral valve insufficiency 03/16/2023 Atherosclerosis of [place] co ronary artery of [place] heart with angina pectoris 03/23/2022 Paroxysmal atrial [...] goal < 8% 09/16/2013 Coronary atherosclerosis of [place] coronary tuan ry 02/21/2012 S/P angioplasty with stent 02/21/2012 Overview: Diagnonal #1. [facility] 02/16/12 Mixed dyslipidemia 01/05/2012 Tobacco use disorder 01/05/2012 Major depressive disorder 01/10/2011 Overview: ICD-10 update of inactive term Thoracic and lumbosacral neuritis 08/05/2007 Lumbosacral spondylosis 08/05/2007 Spinal stenosis of lumbar re gion without neurogenic claudication 08/05/2007 HTN, goal below 140/90 documented as of this encounter (statuses as of 04/30/2023) Resolved Problems Problem Noted Date Diagnosed Date Resolved Date Major depressive disorder, s xochilt episode, moderate 03/23/2022 03/16/2023 Atherosclerosis of [place] co ronary artery of [place] heart with angina pectoris 09/07/20172018 Inflammation of [...] as of this encounter (statuses as of 04/30/2023) Immunizations Name Administration Dates Next Due COVID-19 [...] Telephone Encounter - Lynette Holm LPN - 04/30/2023 1:39 PM EST Called and spoke with pt. Questions answered * Telephone Encounter - Berenice Hernandez OSA - 04/30/2023 9:19 AM EST Pt called asking for call back about why she is being referred for her kidneys. documented in this encounter Plan of Treatment Upcoming Encounters Date Type Department Care Team (Late st Contact Info) Description 05/07/2023 1:00 PM EST Office Visit Nephrology [facility], [address] [place] [address] Shaan Morris MD [address] [place] [address] 05/11/2023 11:10 AM EST Office Visit [place] [address] [place] [address] Amparo Rich, [address] [place] [address] 10/24/2023 3:00 PM EDT Office Visit Neurology, [place] [address] [place] [address] [facility], [address] [place] [address] Scheduled Procedures Name Priority Associated Diagnoses Date/Ti me COLONOSCOPY FLEXIBLE PROXIMAL DIAGNOSTIC Recall Gastrointestinal hemorrhage with melena History of colon polyps ESOPHAGOGASTRODUODENOSCOPY ( EGD), FLEXIBLE, TRANSORAL, DIAGNOSTIC Recall Gastrointestinal hemorrhage with melena History of colon polyps Health Maintenance Due Date Last Done Comments Alpha-1 Antitrypsin 1958 CKD PHOS USE SMARTSET 84185 1958 Hepatitis B (1 of 3 - Risk 3-dose series) 2002 Zoster Vaccines (2 of 3) 09/24/2012 07/30/2012 DISCUSS TOBACCO CESSATION (REFER TO SMARTSET #3291) 06/01/2016 06/01/2015 (Discussed) DXA Scan 07/18/2018 07/18/2011, 07/18/2011 *COPD SEVERITY VERIFIED BY PFT 02/01/2019 Albumin/Creatinine Ratio 11/18/2022 022, 08/24/2017, 10/30/2016, Additional history exists Depression Screening 11/18/2022 11/18/2021 COVID-19 Vaccine (3 - 2022-24 season) 2023 11/16/2020, 10/19/2020 Influenza Vaccine (FLU [...] Additional history exists CKD HGB USE SMARTSET 89358 04/12/202404/12, 08/02/2022, 11/18/2021, Additional history exists O2 ASSESSMENT COMPLETED IN PAST YEAR FOR COPD 04/12/2024 04/12/2023 DTaP,Tdap,and Td Vaccines (2 - Td or Tdap) 10/05/2024 10/05/2014, 03/02/2008 LUNG CANCER SCREENING - USE SMARTSET 15673 Completed 08/12/2019, 06/07/2019, 12/19/2018, Additional history exists Pneumococcal Vaccine: 65+ Years Completed 12/01/2019, 03/13/2012 GARDASIL-HPV IMMUNIZATION SERIES Aged Out No longer eligible based on patient's age to complete this topic MENINGOCOCCAL (MENACTRA/MENVEO) Aged Out No longer eligible based on patient's age to complete this topic documented as of this encounter Medical Devices Not on filedocumented as of this encounter Care Teams Chain Person Relationship Specialty Start Date End Date Amparo Rich DO [address] [place] [address] PCP - General Family Medicine 02/21/22 documented as of this encounter
--- OUTSIDE RECORDS SUMMARY | 2023-05-26 07:25 | External Medical Summary | Summary of Care ---
Author Name Unknown Organization [facility] Address [address] [facility] [address] Phone [phone] Care Team Providers Care Hydraulic Boom Operator Name Role Phone Amparo Rich DO Primary Care Provider Reason for Visit * Reason Onset Date Comments Home Health 04/17/2023 FYI 04/17/2023 Waiver for meals on wheels to be faxed to office to be completed and faxed back. Encounter Details Date Type Department Care Team (Late st Contact Info) Description 04/17/2023 Telephone [facility] [address] [place] [address] Amparo Rich, DO [address] [place] [address] Home Health; (Waiver for meals on whee... Allergies Active Allergy Reactions Criticality Noted Date [...] diabetes, HbA1C goal < 8% ([facility]) Use 4 times a day [...] diabetes, HbA1C goal < 8% ([facility]) Test blood sugar 4 times a day 100 Strip 5 07/27/2021 Active BD Swab Single Use Regular Pad Use prior to testing 100 Each 5 07/27/2021 Active OneTouch Delica Lancets 33GIndications:Type 2 diabetes, HbA1C goal < 8% ([facility]) Use to test Blood 100 [...] diabetes, HbA1C goal < 8% ([facility]),HTN, goal below 140/90 Take 1 [...] MG Sublingual Tablet Sublingual (Nitrostat)Indicatio ns:Atherosclerosis of [place] coronary artery of [place] heart with angina pectoris (HCC) Place 1 [...] Date Mitral valve insufficiency 03/16/2023 Atherosclerosis of [place] co ronary artery of [place] heart with angina pectoris 03/23/2022 Paroxysmal atrial [...] goal < 8% 09/16/2013 Coronary atherosclerosis of [place] coronary tuan ry 02/21/2012 S/P angioplasty with stent 02/21/2012 Overview: Diagnonal #1. [facility] 02/16/12 Mixed dyslipidemia 01/05/2012 Tobacco use disorder [...] xochilt episode, moderate 03/23/2022 03/16/2023 Atherosclerosis of [place] co ronary artery of [place] heart with angina pectoris 09/07/20172018 Inflammation of [...] Encounter - Susan Larson LPN - 04/25/2023 11:30 AM EDT postal worker order received by [facility] , spoke with Maritza at [facility] home health, and they are taking care of it with the [facility] of [facility]. * Telephone Encounter - Rose Harris OSA - 04/18/2023 11:52 AM EDT Waiver for meals on wheels to be faxed to office to be completed and faxed back. * Telephone Encounter - Amparo Rich DO - 04/18/2023 9:24 AM EDT Noted. I do believe they are on the list for waiver program. [facility] of aging may be able to help out * Telephone Encounter - Analia Murillo LPN - 04/17/2023 4:13 PM EDT Maritza, RN calling from [facility]. She stated that she received a call from patient's granddaughter (Shasta) that the home is infestedwith bed bugs. Maritza stated that Shasta is not on their patient contact list and she wanted to seeif there was any information documented in the chart regarding this. David who normally takes care of patient is in the hospital and Shasta and her mother are helping care for patient at this time. Per Maritza, Shasta stated that pt would be mad that she is reporting this and she did not want her totell anyone. Maritza asked about fumigation for the house and she stated that they cannot afford it and that theyare currently trying to get patient placed at center care. PT was at the house today and they did not note any bed bugs/fleas in the home. No rashes noted on the patient either. Maritza stated that PT is going out to the home again on and she will have them do a full skin assessment and then update us on the situation. documented in this encounter Plan of Treatment Upcoming Encounters Date Type Department Care Team (Late st Contact Info) Description 05/01/2023 10:00 AM EST Office Visit Cardiology, [facility] [address] [facility] [place] [address] Crissy Redmond CRNP [address] [place] [address] 05/02/2023 3:20 PM EST Office Visit Nephrology, [facility] [address] [facility] [place] [address] Concepcion Vaca MD [address] [facility] [place] [place] [address] 05/11/2023 11:10 AM EST Office Visit Family [place] [address] [place] [phone] [place] [address] [place] [address] 10/24/2023 3:00 PM EDT Office Visit Neurology, [place] [address] [place] [address] Oc Owens, [address] [place], [place] [phone] Scheduled Procedures Name Priority Associated Diagnoses Date/Ti me COLONOSCOPY FLEXIBLE PROXIMAL DIAGNOSTIC Recall Gastrointestinal hemorrhage with melena History of colon polyps ESOPHAGOGASTRODUODENOSCOPY ( EGD), FLEXIBLE, TRANSORAL, DIAGNOSTIC Recall Gastrointestinal hemorrhage with melena History of colon polyps Health Maintenance Due Date Last Done Comments Alpha-1 Antitrypsin 1958 CKD PHOS USE SMARTSET 78653 1958 Hepatitis B (1 of 3 - Risk 3-dose series) 2002 Zoster Vaccines (2 of 3) 09/24/2012 07/30/2012 DISCUSS TOBACCO CESSATION (REFER TO SMARTSET #3291) 06/01/2016 06/01/2015 (Discussed) DXA Scan 07/18/2018 07/18/2011, 07/18/2011 *COPD SEVERITY VERIFIED BY PFT 02/01/2019 Albumin/Creatinine Ratio 11/18/2022 022, 08/24/2017, 10/30/2016, Additional history exists Depression Screening 11/18/2022 11/18/2021 COVID-19 Vaccine (3 - 2022- season) 2023 11/16/2020, 10/19/2020 Influenza Vaccine (FLU [...] Additional history exists CKD HGB USE SMARTSET 58614 04/12/202404/12, 08/02/2022, 11/18/2021, Additional history exists O2 ASSESSMENT COMPLETED IN PAST YEAR FOR COPD 04/12/2024 04/12/2023 DTaP,Tdap,and Td Vaccines (2 - Td or Tdap) 10/05/2024 10/05/2014, 03/02/2008 LUNG CANCER SCREENING - USE SMARTSET 57375 Completed 08/12/2019, 06/07/2019, 12/19/2018, Additional history exists Pneumococcal Vaccine: 65+ Years Completed 12/01/2019, 03/13/2012 GARDASIL-HPV IMMUNIZATION SERIES Aged Out No longer eligible based on patient's age to complete this topic MENINGOCOCCAL (MENACTRA/MENVEO) Aged Out No longer eligible based on patient's age to complete this topic documented as of this encounter Medical Devices Not on filedocumented as of this encounter Care Teams Hydraulic Boom Operator Relationship Specialty Start Date End Date Amparo Rich DO [address], [place] [phone] PCP - General Family Medicine 02/21/22 documented as of this encounter
--- OUTSIDE RECORDS SUMMARY | 2023-05-26 07:25 | External Medical Summary | Summary of Care ---
Author Name Unknown Organization [facility] Address [address] [facility] [address] Phone [phone] Care Team Providers Care Drill Press Set Up Operator Name Role Phone Amparo Rich DO Primary Care Provider [phone] Reason for Visit * Reason Onset Date Comments Med Request 04/19/2023 Encounter Details Date Type Department Care Team (Late st Contact Info) Description 04/19/2023 Telephone [place] [address] [place] [address] Amparo Rich DO [address] [place] [address] Med Request Allergies Active Allergy [...] KITIndications:Type 2 diabetes, HbA1C goal < 8% ([facility]) Use 4 times a day to [...] hypoxemia,COPD, group B, by GOLD 2017 classification ([facility]) Use 2 L/min(Oxygen) as directed continuous. [...] pe 2 diabetes, HbA1C goal < 8% ([facility]) Test blood sugar 4 times a day 100 Strip 5 07/27/2021 Active BD Swab Single Use Regular Pad Use prior to testing 100 Each 07/27/2021 Active OneTouch Delica Lancets 33GIndications:Type 2 diabetes, HbA1C goal < 8% ([facility]) Use to test Blood 100 Each [...] s:Type 2 diabetes, HbA1C goal < 8% ([facility]),HTN, goal below 140/90 Take 1 Tablet by mouth in the morning. 90 Tablet 3 08/02/2022 Active metFORMIN HCl 500 MG Oral Tablet (Glucophage)Indicati ons:Type 2 diabetes, HbA1C goal < 8% ([facility]) Take 1 Tablet by mouth 2 times a day with morning and evening meals. 180 Tablet 3 08/09/2022 Active Diclofenac Sodium 1 % External Gel (Voltaren)Indication s:Tendonitis of ankle or foot Apply 2-4 grams to right foot four times daily as needed 150 g 3 10/27/2022 Active Nitroglycerin 0.4 MG Sublingual Tablet Sublingual (Nitrostat)Indicatio ns:Atherosclerosis of [place] coronary artery of [place] heart with angina pectoris (HCC) Place 1 [...] Date Mitral valve insufficiency 03/16/2023 Atherosclerosis of [place] co ronary artery of [place] heart with angina pectoris 03/23/2022 Paroxysmal atrial [...] goal < 8% 09/16/2013 Coronary atherosclerosis of [place] coronary tuan ry 02/21/2012 S/P angioplasty with stent 02/21/2012 Overview: Diagnonal #1. [facility] 02/16/12 Mixed dyslipidemia 01/05/2012 Tobacco use disorder [...] xochilt episode, moderate 03/23/2022 03/16/2023 Atherosclerosis of [place] co ronary artery of [place] heart with angina pectoris 09/07/20172018 Inflammation of [...] encounter Miscellaneous Notes * Telephone Encounter - Amparo Rich DO [...] 05/01/2023 10:00 AM EST Office Visit Cardiology, [facility] [address] [place] [address] Crissy Redmond CRNP [facility] [place] [address] 05/02/2023 3:20 PM EST Office Visit Nephrology, [facility] [address] [facility] [place] [address] Concepcion Vaca MD [address] [facility] [place] [address] 05/11/2023 11:10 AM EST Office Visit Family [address] [phone] Amparo Rich DO [address] [place] [address] 10/24/2023 3:00 PM EDT Office Visit Neurology, [place] [address] [place] [address] Oc Owens, [address] [place], [place] [phone] Scheduled Procedures Name Priority Associated Diagnoses Date/Ti me COLONOSCOPY FLEXIBLE PROXIMAL DIAGNOSTIC Recall Gastrointestinal hemorrhage with melena History of colon polyps ESOPHAGOGASTRODUODENOSCOPY ( EGD), FLEXIBLE, TRANSORAL, DIAGNOSTIC Recall Gastrointestinal hemorrhage with melena History of colon polyps Health Maintenance Due Date Last Done Comments Alpha-1 Antitrypsin 1958 CKD PHOS USE SMARTSET 18030 1958 Hepatitis B (1 of 3 - Risk 3-dose series) 2002 Zoster Vaccines (2 of 3) 09/24/2012 07/30/2012 DISCUSS TOBACCO CESSATION (REFER TO SMARTSET #3290) 06/01/2016 06/01/2015 (Discussed) DXA Scan 07/18/2018 07/18/2011, [...] Additional history exists CKD HGB USE SMARTSET 00675 04/12/202404/12, 08/02/2022, 11/18/2021, Additional history exists O2 ASSESSMENT COMPLETED IN PAST YEAR FOR COPD 04/12/2024 04/12/2023 DTaP,Tdap,and Td Vaccines (2 - Td or Tdap) 10/05/2024 10/05/2014, 03/02/2008 LUNG CANCER SCREENING - USE SMARTSET 76359 Completed 08/12/2019, 06/07/2019, 12/19/2018, Additional history exists Pneumococcal Vaccine: 65+ Years Completed 12/01/2019, 03/13/2012 GARDASIL-HPV IMMUNIZATION SERIES Aged Out No longer eligible based on patient's age to complete this topic MENINGOCOCCAL (MENACTRA/MENVEO) Aged Out No longer eligible based on patient's age to complete this topic documented as of this encounter Medical Devices Not on filedocumented as of this encounter Care Teams Drill Press Set Up Operator Relationship Specialty Start Date End Date Amparo Rich DO [address], [place] [phone] PCP - General Family Medicine 02/21/22 documented as of this encounter
--- OUTSIDE RECORDS SUMMARY | 2023-05-26 07:25 | External Medical Summary | Summary of Care ---
Author Name Unknown Organization [facility] Address [address] [facility] [address] Phone [phone] Care Team Providers Care Liaison Inspection Laboratory Assistant Name Role Phone Amparo Rich DO Primary Care Provider Reason for Visit * Reason Onset Date Comments Med Request 04/19/2023 Encounter Details Date Type Department Care Team (Late st Contact Info) Description 04/19/2023 Telephone [place] [address] [place] [address] Amparo Rich DO [address] [place] [address] Med Request Allergies Active Allergy [...] KITIndications:Type 2 diabetes, HbA1C goal < 8% ([facility]) Use 4 times a day to check [...] hypoxemia,COPD, group B, by GOLD 2017 classification ([facility]) Use 2 L/min(Oxygen) as directed continuous. concentrated [...] pe 2 diabetes, HbA1C goal < 8% ([facility]) Test blood sugar 4 times a day 100 Strip 5 07/27/2021 Active BD Swab Single Use Regular Pad Use prior to testing 100 Each 07/27/2021 Active OneTouch Delica Lancets 33GIndications:Type 2 diabetes, HbA1C goal < 8% ([facility]) Use to test Blood 100 Each 5 [...] s:Type 2 diabetes, HbA1C goal < 8% ([facility]),HTN, goal below 140/90 Take 1 Tablet by mouth in the morning. 90 Tablet 3 08/02/2022 Active metFORMIN HCl 500 MG Oral Tablet (Glucophage)Indicati ons:Type 2 diabetes, HbA1C goal < 8% ([facility]) Take 1 Tablet by mouth 2 times a day with morning and evening meals. 180 Tablet 3 08/09/2022 Active Diclofenac Sodium 1 % External Gel (Voltaren)Indication s:Tendonitis of ankle or foot Apply 2-4 grams to right foot four times daily as needed 150 g 3 10/27/2022 Active Nitroglycerin 0.4 MG Sublingual Tablet Sublingual (Nitrostat)Indicatio ns:Atherosclerosis of [place] coronary artery of [place] heart with angina pectoris (HCC) Place 1 [...] Date Mitral valve insufficiency 03/16/2023 Atherosclerosis of [place] co ronary artery of [place] heart with angina pectoris 03/23/2022 Paroxysmal atrial [...] goal < 8% 09/16/2013 Coronary atherosclerosis of [place] coronary tuan ry 02/21/2012 S/P angioplasty with stent 02/21/2012 Overview: Diagnonal #1. [facility] 02/16/12 Mixed dyslipidemia 01/05/2012 Tobacco use disorder [...] xochilt episode, moderate 03/23/2022 03/16/2023 Atherosclerosis of [place] co ronary artery of [place] heart with angina pectoris 09/07/20172018 Inflammation of [...] 05/01/2023 10:00 AM EST Office Visit Cardiology, [facility] [address] [place] [address] Crissy Redmond [facility] [place] [address] 05/02/2023 3:20 PM EST Office Visit Nephrology, [facility] [address] [facility] [place] [address] Concepcion Vaca MD [address] [facility] [place] [address] 05/11/2023 11:10 AM EST Office Visit Family [address] [phone] Amparo Rich DO [address] [place] [address] 10/24/2023 3:00 PM EDT Office Visit Neurology, [place] [address] [place] [address] Oc Owens, [address] [place], [place] [phone] Scheduled Procedures Name Priority Associated Diagnoses Date/Ti me COLONOSCOPY FLEXIBLE PROXIMAL DIAGNOSTIC Recall Gastrointestinal hemorrhage with melena History of colon polyps ESOPHAGOGASTRODUODENOSCOPY ( EGD), FLEXIBLE, TRANSORAL, DIAGNOSTIC Recall Gastrointestinal hemorrhage with melena History of colon polyps Health Maintenance Due Date Last Done Comments Alpha-1 Antitrypsin 1958 CKD PHOS USE SMARTSET 25528 1958 Hepatitis B (1 of 3 - Risk 3-dose series) 2002 Zoster Vaccines (2 of 3) 09/24/2012 07/30/2012 DISCUSS TOBACCO CESSATION (REFER TO SMARTSET #3297) 06/01/2016 06/01/2015 (Discussed) DXA Scan 07/18/2018 07/18/2011, [...] Additional history exists CKD HGB USE SMARTSET 60526 04/12/202404/12, 08/02/2022, 11/18/2021, Additional history exists O2 ASSESSMENT COMPLETED IN PAST YEAR FOR COPD 04/12/2024 04/12/2023 DTaP,Tdap,and Td Vaccines (2 - Td or Tdap) 10/05/2024 10/05/2014, 03/02/2008 LUNG CANCER SCREENING - USE SMARTSET 53700 Completed 08/12/2019, 06/07/2019, 12/19/2018, Additional history exists Pneumococcal Vaccine: 65+ Years Completed 12/01/2019, 03/13/2012 GARDASIL-HPV IMMUNIZATION SERIES Aged Out No longer eligible based on patient's age to complete this topic MENINGOCOCCAL (MENACTRA/MENVEO) Aged Out No longer eligible based on patient's age to complete this topic documented as of this encounter Medical Devices Not on filedocumented as of this encounter Care Teams Liaison Inspection Laboratory Assistant Relationship Specialty Start Date End Date Amparo Rich DO [address], [place] [phone] PCP - General Family Medicine 02/21/22 documented as of this encounter
--- OUTSIDE RECORDS SUMMARY | 2023-05-26 07:25 | External Medical Summary | Summary of Care ---
Author Name Unknown Organization [facility] Address [address] [facility] [place] [address] Phone [phone] Care Team Providers Care Earth Sciences Professor Name Role Phone Casey Rich DO Primary Care Provider Reason for Referral * Evaluate & Treat - Unlimited Visits (Within 10 days (routine)) - Pending Review Specialty Diagnoses / Procedures Referred By Sheldon vega Referred To Contact Nephrology Diagnoses Chronic kidney disease, stage 3a (HCC) Casey Rich DO [address] [place] [address] Referral ID Status Reason Start Date Expiration Date Visits Requested Visits Authorized [id number] Pending Review Specialty Services Required [phone] Question Answer Referral Priority Within 10 days (routine) Where should this appointment be scheduled? [facility] What condition is this patient being seen for? Chronic kidney disease Reason for Visit * Reason Onset Date Comments Test Results Lab 04/13/2023 Encounter Details Date Type Department Care Team (Late st Contact Info) Description 04/13/2023 Telephone [facility] [address] [place] [phone] Casey Rich DO [address] [place], [place] [phone] Test Results Lab Allergies Active Allergy Reactions Criticality Noted Date [...] 2 diabetes, HbA1C goal < 8% ([facility]) Use 4 times a day [...] group B, by GOLD 2017 classification ([facility]) Use 2 L/min(Oxygen) as directed continuous. concentrated [...] 2 diabetes, HbA1C goal < 8% ([facility]) Test blood sugar 4 times a day 100 Strip 5 07/27/2021 Active BD Swab Single Use Regular Pad Use prior to testing 100 Each 07/27/2021 Active OneTouch Delica Lancets 33GIndications:Type 2 diabetes, HbA1C goal < 8% ([facility]) Use to test Blood 100 [...] MG Sublingual Tablet Sublingual (Nitrostat)Indicatio ns:Atherosclerosis of [place] coronary artery of [place] heart with angina pectoris (HCC) Place 1 [...] Date Mitral valve insufficiency 03/16/2023 Atherosclerosis of [place] co ronary artery of [place] heart with angina pectoris 03/23/2022 Paroxysmal atrial [...] goal < 8% 09/16/2013 Coronary atherosclerosis of [place] coronary tuan ry 02/21/2012 S/P angioplasty with stent 02/21/2012 Overview: Diagnonal #1. [facility] 02/16/12 Mixed dyslipidemia 01/05/2012 Tobacco use disorder [...] xochilt episode, moderate 03/23/2022 03/16/2023 Atherosclerosis of [place] co ronary artery of [place] heart with angina pectoris 09/07/20172018 Inflammation of [...] Peptic ulcer 01/26/2003 01/11/2018 Mixed dyslipidemia 01/01/2003 9 Overview: Per Lipid Taxonomy. Tobacco use [...] Encounter - Susan Larson LPN - 04/23/2023 4:55 PM EDT Spoke with pt. She has an appointment with a "kidney" doctor. On May.02 . * Telephone Encounter - Susan Larson LPN - 04/23/2023 2:29 PM EDT left message on machine for pt to call office Please ask if Pt would like to be scheduled with Nephrology today See message below * Addendum Note - Casey Rich DO - 04/23/2023 2:12 PM EDTAddended by: CASEY RICH on: 04/23/2023 02:12 PM Modules accepted: Orders * Telephone Encounter - Casey Rich DO - 04/23/2023 2:12 PM EDT Nephrology referral placed * Telephone Encounter - Pricilla Art MED ASSIST - 04/19/2023 4:32 PM EDT Please see other encounters in her chart as well. There is a few from her family about other concerns and I am not sure if that will influence any decisions. * Telephone Encounter - Annamarie Vargas LPN - 04/19/2023 11:35 AM EDT Contacted patient gave below results and she states that she is still taking jardiance and metformin. She is agreeable to see a kidney doctor. She also has some concerns with her nervous, she states she is shaky and nervous and would like some guidance. * Telephone Encounter - Pricilla Art MED ASSIST - 04/16/2023 3:49 PM EDT Attempted to call pt and her daughter as the number listed is the same. No answer. Left message to call back. Please advise previous message. * Telephone Encounter - Casey Rich DO - 04/13/2023 1:51 PM EDT Please call pt and her daughter Her urine sample showed a lot of sugar. The culture is pending Her renal function is stable, but again has gotten worse. Please confirm she is on jardiance and metformin for her diabetes, and is she willing to see a kidney dr in regards to her decline in renal function documented in this encounter Plan of Treatment Upcoming Encounters Date Type Department Care Team (Late st Contact Info) Description 05/01/2023 10:00 AM EST Office Visit Cardiology, [facility] [address] [place] [address] Crissy Redmond CRNP [address] [place] [address] 05/02/2023 3:20 PM EST Office Visit Nephrology, [facility] [address] [place] [address] Concepcion Vaca MD [address] [place] [address] 05/09/2023 7:30 AM EST Imaging Radiology [facility] [place] [address] [place] [address] 05/11/2023 11:10 AM EST Office Visit [facility] [address] [place] [phone] Casey Rich, [address] [place] [address] 10/24/2023 3:00 PM EDT Office Visit Neurology, [place] [address] [place] [address] Oc Owens, [address] [place], [place] [phone] Scheduled Procedures Name Priority Associated Diagnoses Date/Ti me COLONOSCOPY FLEXIBLE PROXIMAL DIAGNOSTIC Recall Gastrointestinal hemorrhage with melena History of colon polyps ESOPHAGOGASTRODUODENOSCOPY ( EGD), FLEXIBLE, TRANSORAL, DIAGNOSTIC Recall Gastrointestinal hemorrhage with melena History of colon polyps Scheduled Referrals Name Type Priority Associated Diagnoses Orde r Schedule NEPHROLOGY REFERRAL OP Referral Within 10 days (routine) Chronic kidney disease, stage 3a (HCC) Ordered: 04/23/2023 Health Maintenance Due Date Last Done Comments Alpha-1 Antitrypsin 1958 CKD PHOS USE SMARTSET 74475 1958 Hepatitis B (1 of 3 - [...] Additional history exists CKD HGB USE SMARTSET 58912 04/12/202404/12, 08/02/2022, 11/18/2021, Additional history exists O2 ASSESSMENT COMPLETED IN PAST YEAR FOR COPD 04/12/2024 04/12/2023 DTaP,Tdap,and Td Vaccines (2 - Td or Tdap) 10/05/2024 10/05/2014, 03/02/2008 LUNG CANCER SCREENING - USE SMARTSET 44856 Completed 08/12/2019, 06/07/2019, 12/19/2018, Additional history exists Pneumococcal Vaccine: 65+ Years Completed 12/01/2019, 03/13/2012 GARDASIL-HPV IMMUNIZATION SERIES Aged Out No longer eligible based on patient's age to complete this topic MENINGOCOCCAL (MENACTRA/MENVEO) Aged Out No longer eligible based on patient's age to complete this topic documented as of this encounter Medical Devices Not on filedocumented as of this encounter Visit Diagnoses Diagnosis Chronic kidney disease, stage 3a (HCC)- Primary documented in this encounter Care Teams Earth Sciences Professor Relationship Specialty Start Date End Date Casey Rich DO [address] [place] [address] PCP - General Family Medicine 02/21/22 documented as of this encounter
--- OUTSIDE RECORDS SUMMARY | 2023-05-26 07:25 | External Medical Summary | Summary of Care ---
Author Name Unknown Organization [facility] Address [address] [facility] [address] Phone [phone] Care Team Providers Care Marble Cleaner Name Role Phone Amparo Rich DO Primary Care Provider [phone] Reason for Visit * Reason Onset Date Comments Order Request 05/08/2023 Encounter Details Date Type Department Care Team (Late st Contact Info) Description 05/08/2023 Telephone [place] [address] [place] [address] Amparo Rich DO [address] [place] [address] Order Request Allergies Active Allergy Reactions Criticality Noted Date Comments Bee Venom High 11/17/2011 Life threating reaction Morphine And Related 11/04/2002 vomitting with all types of pain meds documented as of this encounter (statuses as of 05/08/2023) Medications Medication Sig Dispensed Refills Start Date End Date Status EPIPEN 0.3 MG/0.3ML IJ DEVIIndications:Bee sting One injection into thigh as needed for severe allergic reaction 1 Device 5 10/08/2013 Active Blood Glucose Monitoring Suppl (ACCU-CHEK [place]ON[place] PLUS) w/Device KITIndications:Type 2 diabetes, HbA1C goal < 8% ([facility]) Use 4 times a day to [...] diabetes, HbA1C goal < 8% ([facility]) Test blood sugar 4 times a day 100 Strip 5 07/27/2021 Active BD Swab Single Use Regular Pad Use prior to testing 100 Each 5 07/27/2021 Active OneTouch Delica Lancets 33GIndications:Type 2 diabetes, HbA1C goal < 8% ([facility]) Use to test Blood 100 Each [...] MG Sublingual Tablet Sublingual (Nitrostat)Indicatio ns:Atherosclerosis of [place] coronary artery of [place] heart with angina pectoris (HCC) Place 1 [...] as of this encounter (statuses as of 05/08/2023) Active Problems Problem Noted Date Diagnosed Date Mitral valve insufficiency 03/16/2023 Atherosclerosis of [place] co ronary artery of [place] heart with angina pectoris 03/23/2022 Paroxysmal atrial [...] goal < 8% 09/16/2013 Coronary atherosclerosis of [place] coronary tuan ry 02/21/2012 S/P angioplasty with stent 02/21/2012 Overview: Diagnonal #1. 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 05/08/2023 * Telephone Encounter - Lynette Holm [...] wish to have their order completed at? [facility] Fax Number, if applicable: N/A Call Back Number: [phone]. Patient said the insurance company cancelled it [...] 10/24/2023 3:00 PM EDT Office Visit Neurology, [place] [address] [place] [address] Oc Owens DO [address] [place], [place] [phone] Scheduled Procedures Name Priority Associated Diagnoses Date/Ti me COLONOSCOPY FLEXIBLE PROXIMAL DIAGNOSTIC Recall Gastrointestinal hemorrhage with melena History of colon polyps ESOPHAGOGASTRODUODENOSCOPY ( EGD), FLEXIBLE, TRANSORAL, DIAGNOSTIC Recall Gastrointestinal hemorrhage with melena History of colon polyps Health Maintenance Due Date Last Done Comments Alpha-1 Antitrypsin 1958 CKD PHOS USE SMARTSET 11421 1958 Hepatitis B (1 of 3 - [...] Additional history exists CKD HGB USE SMARTSET 28299 04/12/202404/12, 08/02/2022, 11/18/2021, Additional history exists O2 ASSESSMENT COMPLETED IN PAST YEAR FOR COPD 04/12/2024 04/12/2023 DTaP,Tdap,and Td Vaccines (2 - Td or Tdap) 10/05/2024 10/05/2014, 03/02/2008 LUNG CANCER SCREENING - USE SMARTSET 30576 Completed 08/12/2019, 06/07/2019, 12/19/2018, Additional history exists Pneumococcal Vaccine: 65+ Years Completed 12/01/2019, 03/13/2012 GARDASIL-HPV IMMUNIZATION SERIES Aged Out No longer eligible based on patient's age to complete this topic MENINGOCOCCAL (MENACTRA/MENVEO) Aged Out No longer eligible based on patient's age to complete this topic documented as of this encounter Medical Devices Not on filedocumented as of this encounter Care Teams Marble Cleaner Relationship Specialty Start Date End Date Amparo Rich DO [address] [place] [address] PCP - General Family Medicine 02/21/22 documented as of this encounter
--- OUTSIDE RECORDS SUMMARY | 2023-05-26 07:25 | External Medical Summary | Summary of Care ---
Author Name Unknown Organization [facility] Address [address] [facility] [address] Phone [phone] Care Team Providers Care Advertising Sales Assistant Name Role Phone Amparo Rich DO Primary Care Provider Reason for Visit * Reason Onset Date Comments Med Request 04/19/2023 Encounter Details Date Type Department Care Team (Late st Contact Info) Description 04/19/2023 Telephone [place] [address] [place] [address] Amparo Rich DO [address] [place] [address] Med Request Allergies Active Allergy [...] KITIndications:Type 2 diabetes, HbA1C goal < 8% ([facility]) Use 4 times a day to [...] hypoxemia,COPD, group B, by GOLD 2017 classification ([facility]) Use 2 L/min(Oxygen) as directed continuous. [...] pe 2 diabetes, HbA1C goal < 8% ([facility]) Test blood sugar 4 times a day 100 Strip 5 07/27/2021 Active BD Swab Single Use Regular Pad Use prior to testing 100 Each 07/27/2021 Active OneTouch Delica Lancets 33GIndications:Type 2 diabetes, HbA1C goal < 8% ([facility]) Use to test Blood 100 Each [...] s:Type 2 diabetes, HbA1C goal < 8% ([facility]),HTN, goal below 140/90 Take 1 Tablet by mouth in the morning. 90 Tablet 3 08/02/2022 Active metFORMIN HCl 500 MG Oral Tablet (Glucophage)Indicati ons:Type 2 diabetes, HbA1C goal < 8% ([facility]) Take 1 Tablet by mouth 2 times a day with morning and evening meals. 180 Tablet 3 08/09/2022 Active Diclofenac Sodium 1 % External Gel (Voltaren)Indication s:Tendonitis of ankle or foot Apply 2-4 grams to right foot four times daily as needed 150 g 3 10/27/2022 Active Nitroglycerin 0.4 MG Sublingual Tablet Sublingual (Nitrostat)Indicatio ns:Atherosclerosis of [place] coronary artery of [place] heart with angina pectoris (HCC) Place 1 [...] Mitral valve insufficiency 03/16/2023 Atherosclerosis of [place] co ronary artery of [place] heart with angina pectoris 03/23/2022 Paroxysmal atrial [...] < 8% 09/16/2013 Coronary atherosclerosis of [place] coronary tuan ry 02/21/2012 S/P angioplasty with stent 02/21/2012 Overview: Diagnonal #1. [facility] 02/16/12 Mixed dyslipidemia 01/05/2012 Tobacco use disorder [...] episode, moderate 03/23/2022 03/16/2023 Atherosclerosis of [place] co ronary artery of [place] heart with angina pectoris 09/07/20172018 Inflammation of [...] 05/01/2023 10:00 AM EST Office Visit Cardiology, [facility] [address] [place] [address] Crissy Redmond CRNP [address] [facility] [place] [address] 05/02/2023 3:20 PM EST Office Visit Nephrology, [facility] [address] [facility] [place] [address] Concepcion Vaca MD [address] [facility] [place] [address] 05/11/2023 11:10 AM EST Office Visit Family [address] [phone] Amparo Rich DO [address] [place] [address] 10/24/2023 3:00 PM EDT Office Visit Neurology, [place] [address] [place] [address] Oc Owens, [address] [place], [place] [phone] Scheduled Procedures Name Priority Associated Diagnoses Date/Ti me COLONOSCOPY FLEXIBLE PROXIMAL DIAGNOSTIC Recall Gastrointestinal hemorrhage with melena History of colon polyps ESOPHAGOGASTRODUODENOSCOPY ( EGD), FLEXIBLE, TRANSORAL, DIAGNOSTIC Recall Gastrointestinal hemorrhage with melena History of colon polyps Health Maintenance Due Date Last Done Comments Alpha-1 Antitrypsin 1958 CKD PHOS USE SMARTSET 35139 1958 Hepatitis B (1 of 3 - Risk 3-dose series) 2002 Zoster Vaccines (2 of 3) 09/24/2012 07/30/2012 DISCUSS TOBACCO CESSATION (REFER TO SMARTSET #329) 06/01/2016 06/01/2015 (Discussed) DXA Scan 07/18/2018 07/18/2011, [...] Additional history exists CKD HGB USE SMARTSET 01460 04/12/202404/12, 08/02/2022, 11/18/2021, Additional history exists O2 ASSESSMENT COMPLETED IN PAST YEAR FOR COPD 04/12/2024 04/12/2023 DTaP,Tdap,and Td Vaccines (2 - Td or Tdap) 10/05/2024 10/05/2014, 03/02/2008 LUNG CANCER SCREENING - USE SMARTSET 40363 Completed 08/12/2019, 06/07/2019, 12/19/2018, Additional history exists Pneumococcal Vaccine: 65+ Years Completed 12/01/2019, 03/13/2012 GARDASIL-HPV IMMUNIZATION SERIES Aged Out No longer eligible based on patient's age to complete this topic MENINGOCOCCAL (MENACTRA/MENVEO) Aged Out No longer eligible based on patient's age to complete this topic documented as of this encounter Medical Devices Not on filedocumented as of this encounter Care Teams Advertising Sales Assistant Relationship Specialty Start Date End Date Amparo Rich DO [address] [place], [place] [phone] PCP - General Family Medicine 02/21/22 documented as of this encounter
--- OUTSIDE RECORDS SUMMARY | 2023-05-26 07:26 | External Medical Summary | Summary of Care ---
Author Name Unknown Organization [facility] Address [address] [facility] [place] [address] Phone [phone] Care Team Providers Care Typewriter Mechanic Name Role Phone Casey Rich DO Primary Care Provider Reason for Referral * Evaluate & Treat - Unlimited Visits (Within 10 days (routine)) - Pending Review Specialty Diagnoses / Procedures Referred By Sheldon vega Referred To Contact Nephrology Diagnoses Chronic kidney disease, stage 3a (HCC) Casey Rich DO [address] [place] [address] Referral ID Status Reason Start Date Expiration Date Visits Requested Visits Authorized [id number] Pending Review Specialty Services Required [phone] Question Answer Referral Priority Within 10 days (routine) Where should this appointment be scheduled? [facility] What condition is this patient being seen for? Chronic kidney disease Reason for Visit * Reason Onset Date Comments Test Results Lab 04/13/2023 Encounter Details Date Type Department Care Team (Late st Contact Info) Description 04/13/2023 Telephone [facility] [address] [place] [phone] Casey Rich DO [address] [place], [place] [phone] Test Results Lab Allergies Active Allergy Reactions [...] 10/08/2013 Active Blood Glucose Monitoring Suppl (ACCU-CHEK [place] PLUS) w/Device KITIndications:Type 2 diabetes, HbA1C goal < 8% ([facility]) Use 4 times a day to check [...] hypoxemia,COPD, group B, by GOLD 2017 classification ([facility]) Use 2 L/min(Oxygen) as directed continuous. concentrated and home fill with portability 1 Each 0 01/21/2021 Active Additional Information Patient not taking.Reported on 01/31/2023 Premarin 0.625 MG/GM Vaginal Cream (Estrogens, Conjugated)Indicatio ns:Postmenopausal atrophic vaginitis Administer into the vagina 0.5 g before bedtime. As directed.. 42.5 g 5 07/21/2021 Active Additional Information Patient not taking.Reported on 03/16/2023 Accu-Chek Sophia Plus In Vitro Strip (Glucose Blood)Indications:Ty pe 2 diabetes, HbA1C goal < 8% ([facility]) Test blood sugar 4 times a day 100 Strip 5 07/27/2021 Active BD Swab Single Use Regular Pad Use prior to testing 100 Each 07/27/2021 Active OneTouch Delica Lancets 33GIndications:Type 2 diabetes, HbA1C goal < 8% ([facility]) Use to test Blood 100 Each 5 [...] MG Sublingual Tablet Sublingual (Nitrostat)Indicatio ns:Atherosclerosis of [place] coronary artery of [place] heart with angina pectoris (HCC) Place 1 [...] Date Mitral valve insufficiency 03/16/2023 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 09/07/20172018 Inflammation of [...] 05/01/2023 10:00 AM EST Office Visit Cardiology, [facility] [address] [facility] [place] [address] Crissy Redmond CRNP 132 [facility] [place] [address] 05/09/2023 7:30 AM EST Imaging Radiology [facility] 1st [facility] [address] [facility] [place] [address] 05/11/2023 11:10 AM EST Office Visit [facility] [address] [facility] [phone] Casey [facility] [address] [facility] [address] 10/24/2023 3:00 PM EDT Office Visit Neurology, [address] [place] [address] GracielaOc, [address] [place] [address] Scheduled Procedures Name Priority Associated Diagnoses Date/Ti [...] Alpha-1 Antitrypsin 1958 CKD PHOS USE SMARTSET 35581 1958 Hepatitis B (1 of 3 - [...] 10/05/2020, Additional history exists GFR 10/12/2023 04/12/2023, 08/2022, 08/02/2022, Additional history exists HbA1c 10/12/2023 04/12/2023, 08/2022, 08/02/2022, Additional history exists CKD HGB USE SMARTSET 42881 04/12/202404/12, 08/02/2022, 11/18/2021, Additional history exists O2 ASSESSMENT COMPLETED IN PAST YEAR FOR COPD 04/12/2024 04/12/2023 DTaP,Tdap,and Td Vaccines (2 - Td or Tdap) 10/05/2024 10/05/2014, 03/02/2008 LUNG CANCER SCREENING - USE SMARTSET 34623 Completed 08/12/2019, 06/07/2019, 12/19/2018, Additional history exists [...] Primary documented in this encounter Care Teams Typewriter Mechanic Relationship Specialty Start Date End Date Casey Rich DO [address] [place] [facility] [place] [address] PCP - General Family Medicine 02/21/22 documented as of this encounter
--- OUTSIDE RECORDS SUMMARY | 2023-05-26 07:26 | External Medical Summary | Summary of Care ---
Author Name Unknown Organization [facility] Address [address] [facility] [place] [address] Phone [phone] Care Team Providers Care Safety Scientist Name Role Phone Casey Rich DO Primary Care Provider Reason for Referral * Evaluate & Treat - Unlimited Visits (Within 10 days (routine)) - Pending Review Specialty Diagnoses / Procedures Referred By Sheldon vega Referred To Contact Nephrology Diagnoses Chronic kidney disease, stage 3a (HCC) Casey Rich DO [address] [place] [address] Referral ID Status Reason Start Date Expiration Date Visits Requested Visits Authorized [id number] Pending Review Specialty Services Required [phone] Question Answer Referral Priority Within 10 days (routine) Where should this appointment be scheduled? [facility] What condition is this patient being seen for? 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 09/07/20172018 Inflammation of [...] as of this encounter Miscellaneous Notes * Addendum Note - Casey Rich DO [...] 05/01/2023 10:00 AM EST Office Visit Cardiology, [facility] [address] [place] [address] Crissy Redmond CRNP [address] [facility] [address] 05/09/2023 7:30 AM EST Imaging Radiology [address] 132 [facility] [place] [address] 05/11/2023 11:10 AM EST Office Visit [facility] [address] [place] [address] Casey Rich DO [address] [place] [address] 10/24/2023 3:00 PM EDT Office Visit Neurology, [place] [address] [place] [address] Oc Owens, [address] [place], [place] [phone] Scheduled Procedures Name Priority Associated Diagnoses Date/Ti [...] Alpha-1 Antitrypsin 1958 CKD PHOS USE SMARTSET 06479 1958 Hepatitis B (1 of 3 - Risk 3-dose series) 2002 Zoster Vaccines (2 of 3) 09/24/2012 07/30/2012 DISCUSS TOBACCO CESSATION (REFER TO SMARTSET #3291) 06/01/2016 06/01/2015 (Discussed) DXA Scan 07/18/2018 07/18/2011, 07/18/2011 *COPD SEVERITY VERIFIED BY PFT 02/01/2019 Albumin/Creatinine Ratio 11/18/2022 022, 08/24/2017, 10/30/2016, Additional history exists Depression Screening 11/18/2022 11/18/2021 COVID-19 Vaccine (2022- season) 2023 11/16/2020, 10/19/2020 Influenza Vaccine (FLU [...] Additional history exists CKD HGB USE SMARTSET 84175 04/12/202404/12, 08/02/2022, 11/18/2021, Additional history exists O2 ASSESSMENT COMPLETED IN PAST YEAR FOR COPD 04/12/2024 04/12/2023 DTaP,Tdap,and Td Vaccines (2 - Td or Tdap) 10/05/2024 10/05/2014, 03/02/2008 LUNG CANCER SCREENING - USE SMARTSET 70382 Completed 08/12/2019, 06/07/2019, 12/19/2018, Additional history exists [...] Primary documented in this encounter Care Teams Safety Scientist Relationship Specialty Start Date End Date Casey Rich DO [address] [place] [address] PCP - General Family Medicine 02/21/22 documented as of this encounter
--- OUTSIDE RECORDS SUMMARY | 2023-05-26 07:26 | External Medical Summary | Summary of Care ---
Author Name Unknown Organization [facility] Address [address] [facility] [address] Phone [phone] Care Team Providers Care Tile Layer Helper Name Role Phone Amparo Rich DO Primary Care Provider Reason for Visit * Reason Onset Date Comments Med Request 04/19/2023 Encounter Details Date Type Department Care Team (Late st Contact Info) Description 04/19/2023 Telephone [place] [address] [place] [address] Amparo Rich DO [address] [place] [address] Med Request Allergies Active Allergy [...] KITIndications:Type 2 diabetes, HbA1C goal < 8% ([facility]) Use 4 times a day [...] hypoxemia,COPD, group B, by GOLD 2017 classification ([facility]) Use 2 L/min(Oxygen) as directed [...] pe 2 diabetes, HbA1C goal < 8% ([facility]) Test blood sugar 4 times a day 100 Strip 5 07/27/2021 Active BD Swab Single Use Regular Pad Use prior to testing 100 Each 07/27/2021 Active OneTouch Delica Lancets 33GIndications:Type 2 diabetes, HbA1C goal < 8% ([facility]) Use to test Blood 100 [...] s:Type 2 diabetes, HbA1C goal < 8% ([facility]),HTN, goal below 140/90 Take 1 Tablet by mouth in the morning. 90 Tablet 3 08/02/2022 Active metFORMIN HCl 500 MG Oral Tablet (Glucophage)Indicati ons:Type 2 diabetes, HbA1C goal < 8% ([facility]) Take 1 Tablet by mouth 2 times a day with morning and evening meals. 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 [address] [facility] [place] [address] Crissy Redmond CRNP 132 [facility] [place] [address] 05/02/2023 3:20 PM EST Office Visit Nephrology, [facility] [address] [facility] [place] [address] Concepcion Vaca MD [address] [place] [address] 05/09/2023 7:30 AM EST Imaging Radiology [facility] [address] [facility] [address] [facility] [place] [address] 05/11/2023 11:10 AM EST Office Visit [address] [phone] Amparo Rich [address] [place] [address] 10/24/2023 3:00 PM EDT Office Visit Neurology, [facility] [address] [place] [address] GracielaMadhushilpa Theresa, [address] [place] [address] Scheduled Procedures Name Priority Associated Diagnoses Date/Ti me COLONOSCOPY FLEXIBLE PROXIMAL DIAGNOSTIC Recall Gastrointestinal hemorrhage with melena History of colon polyps ESOPHAGOGASTRODUODENOSCOPY ( EGD), FLEXIBLE, TRANSORAL, DIAGNOSTIC Recall Gastrointestinal hemorrhage with melena History of colon polyps Health Maintenance Due Date Last Done Comments Alpha-1 Antitrypsin 1958 CKD PHOS USE SMARTSET 19317 1958 Hepatitis B (1 of 3 - [...] Additional history exists CKD HGB USE SMARTSET 88530 04/12/202404/12, 08/02/2022, 11/18/2021, Additional history exists O2 ASSESSMENT COMPLETED IN PAST YEAR FOR COPD 04/12/2024 04/12/2023 DTaP,Tdap,and Td Vaccines (2 - Td or Tdap) 10/05/2024 10/05/2014, 03/02/2008 LUNG CANCER SCREENING - USE SMARTSET 57875 Completed 08/12/2019, 06/07/2019, 12/19/2018, Additional history exists Pneumococcal Vaccine: 65+ Years Completed 12/01/2019, 03/13/2012 GARDASIL-HPV IMMUNIZATION SERIES Aged Out No longer eligible based on patient's age to complete this topic MENINGOCOCCAL (MENACTRA/MENVEO) Aged Out No longer eligible based on patient's age to complete this topic documented as of this encounter Medical Devices Not on filedocumented as of this encounter Care Teams Tile Layer Helper Relationship Specialty Start Date End Date Amparo Rich DO [address] [facility] [place] [address] PCP - General Family Medicine 02/21/22 documented as of this encounter
--- OUTSIDE RECORDS SUMMARY | 2023-05-26 07:26 | External Medical Summary | Summary of Care ---
Author Name Unknown Organization [facility] Address [address] [facility] [address] Phone [phone] Care Team Providers Care Rn Lpn Cna Name Role Phone Amparo Rich DO Primary Care Provider [phone] Reason for Visit * Reason Onset Date Comments Med Request 04/19/2023 Encounter Details Date Type Department Care Team (Late st Contact Info) Description 04/19/2023 Telephone [place] [address] [place] [address] Amparo Rich DO [address] [place] [address] Med Request Allergies Active Allergy [...] 2 diabetes, HbA1C goal < 8% ([facility]) Use 4 times a day [...] group B, by GOLD 2017 classification ([facility]) Use 2 L/min(Oxygen) as directed [...] 2 diabetes, HbA1C goal < 8% ([facility]) Test blood sugar 4 times a day 100 Strip 5 07/27/2021 Active BD Swab Single Use Regular Pad Use prior to testing 100 Each 07/27/2021 Active OneTouch Delica Lancets 33GIndications:Type 2 diabetes, HbA1C goal < 8% ([facility]) Use to test Blood 100 [...] 2 diabetes, HbA1C goal < 8% ([facility]),HTN, goal below 140/90 Take 1 Tablet by mouth in the morning. 90 Tablet 3 08/02/2022 Active metFORMIN HCl 500 MG Oral Tablet (Glucophage)Indicati ons:Type 2 diabetes, HbA1C goal < 8% ([facility]) Take 1 Tablet by mouth 2 times a day with morning and evening meals. 180 Tablet 3 08/09/2022 Active Diclofenac Sodium 1 % External Gel (Voltaren)Indication s:Tendonitis of ankle or foot Apply 2-4 grams to right foot four times daily as needed 150 g 3 10/27/2022 Active Nitroglycerin 0.4 MG Sublingual Tablet Sublingual (Nitrostat)Indicatio ns:Atherosclerosis of [place] coronary artery of [place] heart with angina pectoris (HCC) Place 1 [...] Date Mitral valve insufficiency 03/16/2023 Atherosclerosis of [place] co ronary artery of [place] heart with angina pectoris 03/23/2022 Paroxysmal atrial [...] goal < 8% 09/16/2013 Coronary atherosclerosis of [place] coronary tuan ry 02/21/2012 S/P angioplasty with stent 02/21/2012 Overview: Diagnonal #1. 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 with angina pectoris 09/07/20172018 Inflammation of [...] 05/01/2023 10:00 AM EST Office Visit Cardiology, [facility] [address] Crissy Redmond CRNP 132 [facility] [place] [address] 05/09/2023 7:30 AM EST Imaging Radiology [address] 132 [facility] [place] [address] 05/11/2023 11:10 AM EST Office Visit Family [facility] [address] [place] [phone] Amparo Rich DO [address] [place] [address] 10/24/2023 3:00 PM EDT Office Visit [address]rology, [address] [phone] Oc Owens, DO [address] [place] [address] Scheduled Procedures Name Priority Associated Diagnoses Date/Ti me COLONOSCOPY FLEXIBLE PROXIMAL DIAGNOSTIC Recall Gastrointestinal hemorrhage with melena History of colon polyps ESOPHAGOGASTRODUODENOSCOPY ( EGD), FLEXIBLE, TRANSORAL, DIAGNOSTIC Recall Gastrointestinal hemorrhage with melena History of colon polyps Health Maintenance Due Date Last Done Comments Alpha-1 Antitrypsin 1958 CKD PHOS USE SMARTSET 85372 1958 Hepatitis B (1 of 3 - [...] Additional history exists CKD HGB USE SMARTSET 05144 04/12/202404/12, 08/02/2022, 11/18/2021, Additional history exists O2 ASSESSMENT COMPLETED IN PAST YEAR FOR COPD 04/12/2024 04/12/2023 DTaP,Tdap,and Td Vaccines (2 - Td or Tdap) 10/05/2024 10/05/2014, 03/02/2008 LUNG CANCER SCREENING - USE SMARTSET 40667 Completed 08/12/2019, 06/07/2019, 12/19/2018, Additional history exists Pneumococcal Vaccine: 65+ Years Completed 12/01/2019, 03/13/2012 GARDASIL-HPV IMMUNIZATION SERIES Aged Out No longer eligible based on patient's age to complete this topic MENINGOCOCCAL (MENACTRA/MENVEO) Aged Out No longer eligible based on patient's age to complete this topic documented as of this encounter Medical Devices Not on filedocumented as of this encounter Care Teams Rn Lpn Cna Relationship Specialty Start Date End Date Amparo Rich DO [address] [place] [address] PCP - General Family Medicine 02/21/22 documented as of this encounter
--- OUTSIDE RECORDS SUMMARY | 2023-05-26 07:26 | External Medical Summary | Summary of Care ---
Author Name Unknown Organization [facility] Address [address] [facility] [address] Phone [phone] Care Team Providers Care Cleaner Housekeeping Name Role Phone Amparo Rich DO Primary Care Provider Reason for Visit * Reason Onset Date Comments Med Request 04/19/2023 Encounter Details Date Type Department Care Team (Late st Contact Info) Description 04/19/2023 Telephone [place] [address] [place] [address] Amparo Rich DO [address] [place] [address] Med Request Allergies Active Allergy [...] KITIndications:Type 2 diabetes, HbA1C goal < 8% ([facility]) Use 4 times a day [...] hypoxemia,COPD, group B, by GOLD 2017 classification ([facility]) Use 2 L/min(Oxygen) as directed [...] pe 2 diabetes, HbA1C goal < 8% ([facility]) Test blood sugar 4 times a day 100 Strip 5 07/27/2021 Active BD Swab Single Use Regular Pad Use prior to testing 100 Each 07/27/2021 Active OneTouch Delica Lancets 33GIndications:Type 2 diabetes, HbA1C goal < 8% ([facility]) Use to test Blood 100 [...] s:Type 2 diabetes, HbA1C goal < 8% ([facility]),HTN, goal below 140/90 Take 1 Tablet by mouth in the morning. 90 Tablet 3 08/02/2022 Active metFORMIN HCl 500 MG Oral Tablet (Glucophage)Indicati ons:Type 2 diabetes, HbA1C goal < 8% ([facility]) Take 1 Tablet by mouth 2 times a day with morning and evening meals. 180 Tablet 3 08/09/2022 Active Diclofenac Sodium 1 % External Gel (Voltaren)Indication s:Tendonitis of ankle or foot Apply 2-4 grams to right foot four times daily as needed 150 g 3 10/27/2022 Active Nitroglycerin 0.4 MG Sublingual Tablet Sublingual (Nitrostat)Indicatio ns:Atherosclerosis of [place] coronary artery of [place] heart with angina pectoris (HCC) Place 1 [...] Date Mitral valve insufficiency 03/16/2023 Atherosclerosis of [place] co ronary artery of [place] heart with angina pectoris 03/23/2022 Paroxysmal atrial [...] goal < 8% 09/16/2013 Coronary atherosclerosis of [place] coronary tuan ry 02/21/2012 S/P angioplasty with stent 02/21/2012 Overview: Diagnonal #1. [facility] 02/16/12 Mixed dyslipidemia 01/05/2012 Tobacco use disorder 01/05/2012 Major depressive disorder 01/10/2011 Overview: ICD-10 update of inactive term Thoracic and lumbosacral neuritis 08/05/2007 Lumbosacral spondylosis 08/05/2007 Spinal stenosis of lumbar re gion without neurogenic claudication 08/05/2007 HTN, goal below 140/90 documented as of this encounter (statuses as of 04/23/2023) Resolved Problems Problem Noted Date Diagnosed Date Resolved Date Major depressive disorder, s xcohilt episode, moderate 03/23/2022 03/16/2023 Atherosclerosis of [place] co ronary artery of [place] heart with angina pectoris 09/07/20172018 Inflammation of [...] 05/01/2023 10:00 AM EST Office Visit Cardiology, [facility] 132 [facility] [place] [address] Crissy Redmond CRNP 132 [facility] [place] [address] 05/02/2023 3:20 PM EST Office Visit Nephrology, [facility] 200 [facility] [place] [address] Concepcion Vaca MD [address] [place] [address] 05/09/2023 7:30 AM EST Imaging Radiology [facility] 1st [facility] 132 [facility] [place] [address] 05/11/2023 11:10 AM EST Office Visit [address] [phone] Amparo Rich [address] [place] [address] 10/24/2023 3:00 PM EDT Office Visit Neurology, [place] [address] [place] [address] GracielaMadhushilpa Theresa, [address] [place] [address] Scheduled Procedures Name Priority Associated Diagnoses Date/Ti me COLONOSCOPY FLEXIBLE PROXIMAL DIAGNOSTIC Recall Gastrointestinal hemorrhage with melena History of colon polyps ESOPHAGOGASTRODUODENOSCOPY ( EGD), FLEXIBLE, TRANSORAL, DIAGNOSTIC Recall Gastrointestinal hemorrhage with melena History of colon polyps Health Maintenance Due Date Last Done Comments Alpha-1 Antitrypsin 1958 CKD PHOS USE SMARTSET 51395 1958 Hepatitis B (1 of 3 - [...] Additional history exists CKD HGB USE SMARTSET 10242 04/12/202404/12, 08/02/2022, 11/18/2021, Additional history exists O2 ASSESSMENT COMPLETED IN PAST YEAR FOR COPD 04/12/2024 04/12/2023 DTaP,Tdap,and Td Vaccines (2 - Td or Tdap) 10/05/2024 10/05/2014, 03/02/2008 LUNG CANCER SCREENING - USE SMARTSET 15328 Completed 08/12/2019, 06/07/2019, 12/19/2018, Additional history exists Pneumococcal Vaccine: 65+ Years Completed 12/01/2019, 03/13/2012 GARDASIL-HPV IMMUNIZATION SERIES Aged Out No longer eligible based on patient's age to complete this topic MENINGOCOCCAL (MENACTRA/MENVEO) Aged Out No longer eligible based on patient's age to complete this topic documented as of this encounter Medical Devices Not on filedocumented as of this encounter Care Teams Cleaner Housekeeping Relationship Specialty Start Date End Date Amparo Rich DO [address] [facility] [place] [address] PCP - General Family Medicine 02/21/22 documented as of this encounter
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
--- OUTSIDE RECORDS SUMMARY | 2023-05-26 07:26 | External Medical Summary | Summary of Care ---
Author Name Unknown Organization [facility] Address [address] [facility] [place] [address] Phone [phone] Care Team Providers Care Set Off Blocker Name Role Phone Casey Rich DO Primary Care Provider [phone] Reason for Referral * Evaluate & Treat - Unlimited Visits (Within 10 days (routine)) - Pending Review Specialty Diagnoses / Procedures Referred By Sheldon vega Referred To Contact Nephrology Diagnoses Chronic kidney disease, stage 3a (HCC) Casey Rich DO [address] [place] [address] Referral ID Status Reason Start Date Expiration Date Visits Requested Visits Authorized [id number] Pending Review Specialty Services Required [phone] Question Answer Referral Priority Within 10 days (routine) Where should this appointment be scheduled? [facility] What condition is this patient being seen for? Chronic kidney disease Reason for Visit * Reason Onset Date Comments Test Results Lab 04/13/2023 Encounter Details Date Type Department Care Team (Late st Contact Info) Description 04/13/2023 Telephone [facility] [address] [place] [phone] Casey Rich DO [address] [place], [place] [phone] Test Results Lab Allergies Active Allergy Reactions [...] KITIndications:Type 2 diabetes, HbA1C goal < 8% ([facility]) Use 4 times a day [...] hypoxemia,COPD, group B, by GOLD 2017 classification ([facility]) Use 2 L/min(Oxygen) as directed [...] pe 2 diabetes, HbA1C goal < 8% ([facility]) Test blood sugar 4 times a day 100 Strip 5 07/27/2021 Active BD Swab Single Use Regular Pad Use prior to testing 100 Each 07/27/2021 Active OneTouch Delica Lancets 33GIndications:Type 2 diabetes, HbA1C goal < 8% ([facility]) Use to test Blood 100 [...] MG Sublingual Tablet Sublingual (Nitrostat)Indicatio ns: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 with angina pectoris (HCC) Place 1 [...] Date Mitral valve insufficiency 03/16/2023 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 with angina pectoris 03/23/2022 Paroxysmal atrial [...] goal < 8% 09/16/2013 Coronary atherosclerosis of [place] coronary tuan ry 02/21/2012 S/P angioplasty with [...] xochilt episode, moderate 03/23/2022 03/16/2023 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 with angina pectoris 09/07/20172018 Inflammation of [...] 05/01/2023 10:00 AM EST Office Visit Cardiology, [facility] 132 [facility] [place] [address] Crissy Redmond CRNP 132 [facility] [place] [address] 05/02/2023 3:20 PM EST Office Visit Nephrology, [facility] [address] [place] [address] Concepcion Vaca MD [address] [place] [address] 05/09/2023 7:30 AM EST Imaging Radiology [facility] 1st [facility] 132 [facility] [place] [address] 05/11/2023 11:10 AM EST Office Visit [address], [place] [phone] Casey Rich, DO [address] [place] [address] 10/24/2023 3:00 PM EDT Office Visit Neurology, [place] [address] [place] [phone] Oc Owens Theresa, [address] [place] [address] Scheduled Procedures Name Priority Associated [...] Alpha-1 Antitrypsin 1958 CKD PHOS USE SMARTSET 62244 1958 Hepatitis B (1 of 3 - Risk 3-dose series) 2002 Zoster Vaccines (2 of 3) 09/24/2012 07/30/2012 DISCUSS TOBACCO CESSATION (REFER TO SMARTSET #3291) 06/01/2016 06/01/2015 (Discussed) DXA Scan 07/18/2018 07/18/2011, 07/18/2011 *COPD SEVERITY VERIFIED BY PFT 02/01/2019 Albumin/Creatinine Ratio 11/18/2022 022, 08/24/2017, 10/30/2016, Additional history exists Depression Screening 11/18/2022 11/18/2021 COVID-19 Vaccine (3 - season) 2023 11/16/2020, 10/19/2020 Influenza Vaccine [...] Additional history exists CKD HGB USE SMARTSET 48672 04/12/202404/12, 08/02/2022, 11/18/2021, Additional history exists O2 ASSESSMENT COMPLETED IN PAST YEAR FOR COPD 04/12/2024 04/12/2023 DTaP,Tdap,and Td Vaccines (2 - Td or Tdap) 10/05/2024 10/05/2014, 03/02/2008 LUNG CANCER SCREENING - USE SMARTSET 47691 Completed 08/12/2019, 06/07/2019, 12/19/2018, Additional history exists [...] Primary documented in this encounter Care Teams Set Off Blocker Relationship Specialty Start Date End Date Casey Rich DO [address] [facility] [address] PCP - General Family Medicine 02/21/22 documented as of this encounter
--- OUTSIDE RECORDS SUMMARY | 2023-05-26 07:26 | External Medical Summary | Summary of Care ---
Author Name Unknown Organization [facility] Address [address] [place] [facility] [place] [place] [place] [address] Phone [phone] Care Team Providers Care Assistant Wrestling Coach Name Role Phone Amparo Rich DO Primary Care Provider + [phone] Reason for Visit * Reason Onset Date Comments Fax 04/13/2023 Encounter Details Date Type Department Care Team Description 04/13/2023 Telephone [place] [address] [place] [address] Amparo Rich DO [address] [place] [address] Fax Allergies Active Allergy Reactions Severity Noted Date Comments Bee Venom High 11/17/2011 Life threating reaction Morphine And Related 11/04/2002 vomitting with all types of pain meds documented as of this encounter (statuses as of 04/13/2023) Medications Medication Sig Dispensed Refills Start Date End Date Status EPIPEN 0.3 MG/0.3ML IJ DEVIIndications:Bee sting One injection into thigh as needed for severe allergic reaction 1 Device 5 10/08/2013 Active Blood Glucose Monitoring Suppl (ACCU-CHEK SOPHIA PLUS) w/Device KITIndications:Type 2 diabetes, HbA1C goal < 8% ([facility]) Use 4 times a [...] pe 2 diabetes, HbA1C goal < 8% (HCC) Test blood sugar 4 times a day 100 Strip 5 07/27/2021 Active BD Swab Single Use Regular Pad Use prior to testing 100 Each 07/27/2021 Active OneTouch Delica Lancets 33GIndications:Type 2 diabetes, HbA1C goal < 8% ([facility]) Use to test Blood [...] MG Sublingual Tablet Sublingual (Nitrostat)Indicatio ns:Atherosclerosis of [place] coronary artery of [place] heart with angina pectoris (HCC) Place 1 [...] as of this encounter (statuses as of 04/13/2023) Active Problems Problem Noted Date Mitral valve insufficiency 03/16/2023 Atherosclerosis of [place] co ronary artery of [place] heart with angina pectoris 03/23/2022 Paroxysmal atrial fibrillation 1 Chronic kidney disease, stage 3a 021 Overview: Per CKD protocol Low serum vitamin B12 03/02/2020 COPD, group B, by GOLD 2017 classificati on 10/06/2019 Overview: Per COPD GOLD Classification Major depressive disorder, recurrent, un specified 05/05/2019 Centrilobular emphysema 01/29/2019 Nocturnal hypoxemia 09/25/2018 Diabetic polyneuropathy associated with type 2 diabetes mellitus 10/30/2016 Type 2 diabetes, HbA1C goal < 8% 014 Coronary atherosclerosis of [place] coron андрей artery 02/21/2012 S/P angioplasty with stent 02/21/2012 Overview: Diagnonal #1. [facility] 02/16/12 Mixed dyslipidemia 01/05/2012 Tobacco use disorder 01/05/2012 Major depressive disorder 01/10/2011 Overview: ICD-10 update of inactive term Thoracic and lumbosacral neuritis 2007 Lumbosacral spondylosis 08/05/2007 Spinal stenosis of lumbar region without neurogenic claudication 08/05/2007 HTN, goal below 140/90 documented as of this encounter (statuses as of 04/13/2023) Resolved Problems Problem Noted Date Resolved Date Major depressive disorder, single episode, moder ate 03/23/2022 03/16/2023 Atherosclerosis of [place] co ronary artery of [place] heart with angina pectoris 09/07/2017 06/27/2018 Inflammation of sacroiliac joint 09/07/2017 08/06/2019 Exertional chest pain 08/25/2015 01/11/2018 Neck pain 09/30/2012 01/11/2018 Acute blood loss anemia 02/21/2012 01/12/20 18 Severe obesity with body mas s index (BMI) of 35.0 to 39.9 with serious comorbidity 01/05/2012 06/27/2018 Overview: bmi= 38.90 01/05/12 ICD-10 update of [...] Snapshot for study details. Special screening for malignant neoplasms, colon 01/10/2011 01/11/2018 Dyslipidemia, goal to be determined 06/10/2009 01/05/2012 Overview: Per Lipid Taxonomy. Lumbago 08/05/2007 01/11/2018 Disorder of intervertebral disc 08/05/2007 01/11/2018 ADVANCE DIRECTIVE INFORMATION 12/15/2005 Overview: No, Advance Directive brochure given to patient. Peptic ulcer 01/26/2003 01/11/2018 Mixed dyslipidemia 01/01/2003 06/10/2009 Overview: Per Lipid Taxonomy. Tobacco use disorder 01/01/2003 01/05/2012 DIVERTICULOSIS OF COLON 11/04/2002 01/12/20 18 documented as of this encounter (statuses as of 04/13/2023) Immunizations Name Administration Dates Next Due COVID-19 [...] drink = 0.6 oz pur e alcohol) Food Insecurity Answer Date Recorded Within the past 12 months, y ou worried that your food would run out before you got money to buy more. Never true 03/02/2020 Within the past 12 months, t he food you bought just didn't last and you didn't have money to get more. Never true 03/02/2020 Sex Assigned at Date Recorded Female 09/25/2018 10:25 AM EDT Job Start Date Occupation Industry Not on file Not on file Not on file documented as of this encounter Miscellaneous Notes * Telephone Encounter - SAMIR Zapien - 04/13/2023 10:29 AM EDT Faxed. 10:29AM 04/13/2023 * Telephone Encounter - SAMIR Rivas - 04/13/2023 10:24 AM EDT Caller requesting the following information to be faxed: Name/Company of caller: [employer] Information requested to be faxed: Updated Med List Fax number: [phone] Attention to Name/Company: [facility] Any additional information?: documented in this encounter Plan of Treatment Upcoming Encounters Date Type Specialty Care Team Description 04/19/2023 Office Visit Cardiology Enoch Che, DO [address] [place] [address] 05/09/2023 Imaging Radiology 05/11/2023 Office Visit Family Medicine Amparo Rich, DO [address] [place] [address] 10/24/2023 Office Visit Neurology Oc Owens, DO [address] [place] [address] Scheduled Procedures Name Priority Associated Diagnoses Date/Ti me COLONOSCOPY FLEXIBLE PROXIMAL DIAGNOSTIC Recall Gastrointestinal hemorrhage with melena History of colon polyps ESOPHAGOGASTRODUODENOSCOPY ( EGD), FLEXIBLE, TRANSORAL, DIAGNOSTIC Recall Gastrointestinal hemorrhage with melena History of colon polyps Health Maintenance Due Date Last Done Comments Alpha-1 Antitrypsin 1958 CKD PHOS USE SMARTSET 43066 1958 Zoster Vaccines (2 of 3) 09/24/2012 07/30/2012 DISCUSS TOBACCO CESSATION (REFER TO SMARTSET #3291) 06/01/2016 06/01/2015 (Discussed) DXA Scan 07/18/2018 07/18/2011, 07/18/2011 *COPD SEVERITY VERIFIED BY PFT 02/01/2019 Albumin/Creatinine Ratio 11/18/2022 022, 08/24/2017, 10/30/2016, Additional history exists Depression Screening 11/18/2022 11/18/2021 COVID-19 Vaccine ( season) 2023 11/16/2020, 10/19/2020 Influenza Vaccine (FLU shot) (#1) 2023 03/23/2022, 02/24/2021, 03/02/2020, Additional history exists DIABETES-EYE EXAM 05/29/2023 05/29/2022, , 03/09/2016 COLONOSCOPY-EVERY 5 YRS AGES 18-100 08/02/2023 08/02/2018, 08/02/2018, 08/25/2011 Diabetic Foot Exam 08/02/2023 08/02/2022, 0 07/21/2021, 10/05/2020, Additional history exists GFR 10/12/2023 04/12/2023, 07/0 08/2022, 08/02/2022, Additional history exists HbA1c 10/12/2023 04/12/2023, 07/0 08/2022, 08/02/2022, Additional history exists CKD HGB USE SMARTSET 99612 04/12/202404/12, 08/02/2022, 11/18/2021, Additional history exists O2 ASSESSMENT COMPLETED IN PAST YEAR FOR COPD 04/12/2024 04/12/2023 DTaP,Tdap,and Td Vaccines (2 - Td or Tdap) 10/05/2024 10/05/2014, 03/02/2008 LUNG CANCER SCREENING - USE SMARTSET 45926 Completed 08/12/2019, 06/07/2019, 12/19/2018, Additional history exists Pneumococcal Vaccine: 65+ Years Completed 12/01/2019, 03/13/2012 GARDASIL-HPV IMMUNIZATION SERIES Aged Out No longer eligible based on patient's age to complete this topic Hepatitis B Aged Out No longer eligi ble based on patient's age to complete this topic MENINGOCOCCAL (MENACTRA/MENVEO) Aged Out No longer eligible based on patient's age to complete this topic documented as of this encounter Medical Devices Not on filedocumented as of this encounter Care Teams Assistant Wrestling Coach Relationship Specialty Start Date End Date Amparo Rich, [address] [place] [address] PCP - General Family Medicine 02/21/22 documented as of this encounter
--- OUTSIDE RECORDS SUMMARY | 2023-05-26 07:26 | External Medical Summary | Summary of Care ---
Author Name Unknown Organization [facility] Address [address] [facility] [address] Phone [phone] Care Team Providers Care Electroplating Technician Name Role Phone Amparo Rich DO Primary Care Provider + [phone] Reason for Visit * Reason Onset Date Comments Advice 04/19/2023 #1 [id number] ~ Taylor vega is requesting a call back later. Nervous breakdown concern Call Back 04/19/2023 Encounter Details Date Type Department Care Team (Late st Contact Info) Description 04/19/2023 Telephone [place] [address] [place] [address] Gissel Harris, gasoline finisher (#[phone] ~ Patient is requesting a ... Allergies Active Allergy Reactions Criticality Noted Date Comments Bee Venom High 11/17/2011 Life threating reaction Morphine And Related 11/04/2002 vomitting with all types of pain meds documented as of this encounter (statuses as of 04/19/2023) Medications Medication Sig Dispensed Refills Start Date End Date Status EPIPEN 0.3 MG/0.3ML IJ DEVIIndications:Bee sting One injection into thigh as needed for severe allergic reaction 1 Device 5 10/08/2013 Active Blood Glucose Monitoring Suppl (ACCU-CHEK LEON[place]A PLUS) w/Device KITIndications:Type 2 diabetes, HbA1C goal < 8% ([facility]) Use 4 times a day to [...] pe 2 diabetes, HbA1C goal < 8% ([facility]) Test blood sugar 4 times a day 100 Strip 5 07/27/2021 Active BD Swab Single Use Regular Pad Use prior to testing 100 Each 5 07/27/2021 Active OneTouch Delica Lancets 33GIndications:Type 2 diabetes, HbA1C goal < 8% ([facility]) Use to test Blood 100 Each 07/27/2021 Active Pseudoephedrine HCl ER 120 MG [...] s:Type 2 diabetes, HbA1C goal < 8% ([facility]),HTN, goal below 140/90 Take 1 Tablet [...] MG Sublingual Tablet Sublingual (Nitrostat)Indicatio ns:Atherosclerosis of [place] coronary artery of [place] heart with angina pectoris (HCC) Place 1 [...] as of this encounter (statuses as of 04/19/2023) Active Problems Problem Noted Date Diagnosed Date Mitral valve insufficiency 03/16/2023 Atherosclerosis of [place] co ronary artery of [place] heart with angina pectoris 03/23/2022 Paroxysmal atrial [...] goal < 8% 09/16/2013 Coronary atherosclerosis of [place] coronary tuan ry 02/21/2012 S/P angioplasty with stent 02/21/2012 Overview: Diagnonal #1. [facility] 02/16/12 Mixed dyslipidemia 01/05/2012 Tobacco use disorder 01/05/2012 Major depressive disorder 01/10/2011 Overview: ICD-10 update of inactive term Thoracic and lumbosacral neuritis 08/05/2007 Lumbosacral spondylosis 08/05/2007 Spinal stenosis of lumbar re gion without neurogenic claudication 08/05/2007 HTN, goal below 140/90 documented as of this encounter (statuses as of 04/19/2023) Resolved Problems Problem Noted Date Diagnosed Date Resolved Date Major depressive disorder, s xochilt episode, moderate 03/23/2022 03/16/2023 Atherosclerosis of [place] co ronary artery of [place] heart with angina pectoris 09/07/20172018 Inflammation of [...] as of this encounter (statuses as of 04/19/2023) Immunizations Name Administration Dates Next Due COVID-19 [...] encounter Miscellaneous Notes * Telephone Encounter - Isatu Price, SAMIR - 04/19/2023 9:42 AM EDT What is the reason for call? Pt returning call What Clinic is the patient trying to reach? [facility]: [place] - Call Type: Hot Call- warm transfer call to the staffing director EMERGENT line- [phone]: Caller: patient Return Phone #: [phone] Call was warm transferred to Terrie at the staffing director line. * Telephone Encounter - Gissel Harris RN - 04/19/2023 8:47 AM EDT Last office visit ~ 04/12/2023 (in office), Visit date not found (telemedicine) THIS IS A TRIAGE ENCOUNTER. Please do not addend or use for orders. If additional action is needed, do not route to nurse triage. Please route encounter to the applicable clinic nurse pool. Thank you Call back #1: RE: Nervous breakdown concern Patient is very shaky. Patient is driving and talking while driving. Going to the son's home to take care of his dog because he is in the hospital. Patient said she does not like to talking on the phone while she is driving. Patient requested a call back later. Aware someone will call her back later. New encounter created. Gissel Harris RN, BSN staffing director Nurse Navigator * Telephone Encounter - SAMIR Still - 04/19/2023 8:37 AM EDT Pt calling stating that she feels like she is having a nervous breakdown. She stated that her daughters are saying that she has bed bugs in the house which she did have them but hasn't had recent issues in the past 3 days. She stated they are going around telling everyone about this and they going to be coming in to the house and removing all of her furniture and getting new. She said them going around and telling everyone that she has bed bugs is making her feel like she is going to have a nervous breakdown. She said her kids called area on aging and told them as well. She isn't sure what todo but would like to speak with her doctor. She denies any idea or thought of causing harm to herself. She was in the hospital twice this month for being sick but she didn't know what it was she was in for. What is the reason for call? What Clinic is the patient trying to reach? [facility]: [place] - Call Type: Red Flag- route the telephone encounter as routine to staffing director p [phone]: Caller: patient Return Phone #: [phone] Call was routed "routine" to the [facility] nurse triage basket (p [phone]). documented in this encounter Plan of Treatment Upcoming Encounters Date Type Department Care Team (Late st Contact Info) Description 05/01/2023 10:00 AM EST Office Visit [facility]iology[facility] [address] [place] [address] Crissy Redmond CRNP [address] [facility] [place] [address] 05/09/2023 7:30 AM EST Imaging Radiology [address] [facility] [address] 05/11/2023 11:10 AM EST Office Visit [facility] [address] [place] [phone] Amparo Rich [address] [place] [address] 10/24/2023 3:00 PM EDT Office Visit Neurology, [place] [address] [place] [phone] Oc Owens, DO [address] [place] [address] Scheduled Procedures Name Priority Associated Diagnoses Date/Ti me COLONOSCOPY FLEXIBLE PROXIMAL DIAGNOSTIC Recall Gastrointestinal hemorrhage with melena History of colon polyps ESOPHAGOGASTRODUODENOSCOPY ( EGD), FLEXIBLE, TRANSORAL, DIAGNOSTIC Recall Gastrointestinal hemorrhage with melena History of colon polyps Health Maintenance Due Date Last Done Comments Alpha-1 Antitrypsin 1958 CKD PHOS USE SMARTSET 66236 1958 Hepatitis B (1 of 3 - Risk 3-dose series) 2002 Zoster Vaccines (2 of 3) 09/24/2012 07/30/2012 DISCUSS TOBACCO CESSATION (REFER TO SMARTSET #0035) 06/01/2016 06/01/2015 (Discussed) DXA Scan 07/18/2018 07/18/2011, [...] Additional history exists CKD HGB USE SMARTSET 54149 04/12/202404/12, 08/02/2022, 11/18/2021, Additional history exists O2 ASSESSMENT COMPLETED IN PAST YEAR FOR COPD 04/12/2024 04/12/2023 DTaP,Tdap,and Td Vaccines (2 - Td or Tdap) 10/05/2024 10/05/2014, 03/02/2008 LUNG CANCER SCREENING - USE SMARTSET 97359 Completed 08/12/2019, 06/07/2019, 12/19/2018, Additional history exists Pneumococcal Vaccine: 65+ Years Completed 12/01/2019, 03/13/2012 GARDASIL-HPV IMMUNIZATION SERIES Aged Out No longer eligible based on patient's age to complete this topic MENINGOCOCCAL (MENACTRA/MENVEO) Aged Out No longer eligible based on patient's age to complete this topic documented as of this encounter Medical Devices Not on filedocumented as of this encounter Care Teams Electroplating Technician Relationship Specialty Start Date End Date Amparo Rich DO [address] [place] [address] PCP - General Family Medicine 02/21/22 documented as of this encounter
--- OUTSIDE RECORDS SUMMARY | 2023-05-26 07:26 | External Medical Summary | Summary of Care ---
Author Name Unknown Organization [facility] Address [address] [place] [facility] [place] [address] Phone [phone] Care Team Providers Care Lamp Mechanic Name Role Phone Amparo Rich DO Primary Care Provider [phone] Reason for Visit * Reason Onset Date Comments Test Results Lab 04/13/2023 Encounter Details Date Type Department Care Team (Late st Contact Info) Description 04/13/2023 Telephone [place] [address] [place] [address] Amparo Rich DO [address] [place] [address] Test Results Lab Allergies Active Allergy Reactions [...] KITIndications:Type 2 diabetes, HbA1C goal < 8% ([facility]) Use 4 times a day to check [...] hypoxemia,COPD, group B, by GOLD 2017 classification ([facility]) Use 2 L/min(Oxygen) as directed continuous. concentrated [...] pe 2 diabetes, HbA1C goal < 8% ([facility]) Test blood sugar 4 times a day 100 Strip 5 07/27/2021 Active BD Swab Single Use Regular Pad Use prior to testing 100 Each 07/27/2021 Active OneTouch Delica Lancets 33GIndications:Type 2 diabetes, HbA1C goal < 8% ([facility]) Use to test Blood 100 Each 5 [...] ons:Type 2 diabetes, HbA1C goal < 8% ([facility]) Take 1 Tablet by mouth 2 times a day with morning and evening meals. 180 Tablet 3 08/09/2022 Active Diclofenac Sodium 1 % External Gel (Voltaren)Indication s:Tendonitis of ankle or foot Apply 2-4 grams to right foot four times daily as needed 150 g 3 10/27/2022 Active Nitroglycerin 0.4 MG Sublingual Tablet Sublingual (Nitrostat)Indicatio ns:Atherosclerosis of [place] coronary artery of [place] heart with angina pectoris (HCC) Place 1 Tablet under the tongue every 5 minutes as needed for Pain, Chest. up to 3 doses in 15 minutes 25 Tablet 11 10/27/2022 Active Empagliflozin 25 MG Oral Tablet (Jardiance)Indicatio ns:Type 2 diabetes, HbA1C goal < 8% ([facility]) Take 1 Tablet by mouth in the [...] Date Mitral valve insufficiency 03/16/2023 Atherosclerosis of [place] co ronary artery of [place] heart with angina pectoris 03/23/2022 Paroxysmal atrial [...] goal < 8% 09/16/2013 Coronary atherosclerosis of [place] coronary tuan ry 02/21/2012 S/P angioplasty with stent 02/21/2012 Overview: Diagnonal #1. [facility] 02/16/12 Mixed dyslipidemia 01/05/2012 Tobacco use [...] xochilt episode, moderate 03/23/2022 03/16/2023 Atherosclerosis of [place] co ronary artery of [place] heart with angina pectoris 09/07/20172018 Inflammation of [...] encounter Miscellaneous Notes * Telephone Encounter - PAPITO Acuna - 04/19/2023 4:32 PM EDT Please see [...] like some guidance. * Telephone Encounter - PAPITO Acuna - 04/16/2023 3:49 PM EDT Attempted to call pt and her daughter as the number listed is the same. No answer. Left message to call back. Please advise previous message. * Telephone Encounter - Amparo Rich DO - 04/13/2023 1:51 PM EDT [...] [facility] [address] [place] [address] Crissy Redmond CRNP [address] [place] [address] 05/09/2023 7:30 AM EST Imaging Radiology [facility] [address] [place] [address] 05/11/2023 11:10 AM EST [address] [phone] Amparo Rich, DO [address] [place] [address] 10/24/2023 3:00 PM EDT Office Visit Neurology, [place] [address] [place] [phone] Di Owensmehreenshilpa Theresa, [address] [place] [address] Scheduled Procedures Name Priority Associated Diagnoses Date/Ti me COLONOSCOPY FLEXIBLE PROXIMAL DIAGNOSTIC Recall Gastrointestinal hemorrhage with melena History of colon polyps ESOPHAGOGASTRODUODENOSCOPY ( EGD), FLEXIBLE, TRANSORAL, DIAGNOSTIC Recall Gastrointestinal hemorrhage with melena History of colon polyps Health Maintenance Due Date Last Done Comments Alpha-1 Antitrypsin 1958 CKD PHOS USE SMARTSET 38415 1958 Hepatitis B (1 of 3 - [...] Additional history exists CKD HGB USE SMARTSET 74499 04/12/202404/12, 08/02/2022, 11/18/2021, Additional history exists O2 ASSESSMENT COMPLETED IN PAST YEAR FOR COPD 04/12/2024 04/12/2023 DTaP,Tdap,and Td Vaccines (2 - Td or Tdap) 10/05/2024 10/05/2014, 03/02/2008 LUNG CANCER SCREENING - USE SMARTSET 13158 Completed 08/12/2019, 06/07/2019, 12/19/2018, Additional history exists Pneumococcal Vaccine: 65+ Years Completed 12/01/2019, 03/13/2012 GARDASIL-HPV IMMUNIZATION SERIES Aged Out No longer eligible based on patient's age to complete this topic MENINGOCOCCAL (MENACTRA/MENVEO) Aged Out No longer eligible based on patient's age to complete this topic documented as of this encounter Medical Devices Not on filedocumented as of this encounter Care Teams Lamp Mechanic Relationship Specialty Start Date End Date Amparo Rich DO [address] [place] [address] PCP - General Family Medicine 02/21/22 documented as of this encounter
--- OUTSIDE RECORDS SUMMARY | 2023-05-26 07:26 | External Medical Summary | Summary of Care ---
Author Name Unknown Organization [facility] Address [address] [address] Phone [phone] Care Team Providers Care Branch Customer Service Representative Name Role Phone Amparo Rich DO Primary Care Provider [phone] Reason for Visit * Reason Onset Date Comments Med Request 04/19/2023 Encounter Details Date Type Department Care Team (Late st Contact Info) Description 04/19/2023 Telephone [facility] [address] [place] [address] Amparo Rich DO [address] [place] [address] Med Request Allergies Active Allergy Reactions Criticality Noted Date Comments Bee Venom High 11/17/2011 Life threating reaction Morphine And Related 11/04/2002 vomitting with all types of pain meds documented as of this encounter (statuses as of 04/20/2023) Medications Medication Sig Dispensed Refills Start Date End Date Status EPIPEN 0.3 MG/0.3ML IJ DEVIIndications:Bee sting One injection into thigh as needed for severe allergic reaction 1 Device 5 10/08/2013 Active Blood Glucose Monitoring Suppl (ACCU-CHEK LEONORA PLUS) w/Device KITIndications:Type 2 diabetes, HbA1C goal < 8% ([facility]) Use 4 times a day to check [...] hypoxemia,COPD, group B, by GOLD 2017 classification ([facility]) Use 2 L/min(Oxygen) as directed continuous. concentrated [...] pe 2 diabetes, HbA1C goal < 8% ([facility]) Test blood sugar 4 times a day 100 Strip 5 07/27/2021 Active BD Swab Single Use Regular Pad Use prior to testing 100 Each 07/27/2021 Active OneTouch Delica Lancets 33GIndications:Type 2 diabetes, HbA1C goal < 8% ([facility]) Use to test Blood 100 Each 5 [...] s:Type 2 diabetes, HbA1C goal < 8% ([facility]),HTN, goal below 140/90 Take 1 Tablet by mouth in the morning. 90 Tablet 3 08/02/2022 Active metFORMIN HCl 500 MG Oral Tablet (Glucophage)Indicati ons:Type 2 diabetes, HbA1C goal < 8% ([facility]) Take 1 Tablet by mouth 2 times a day with morning and evening meals. 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 [facility] 02/16/12 Mixed dyslipidemia 01/05/2012 Tobacco use disorder 01/05/2012 Major depressive disorder 01/10/2011 Overview: ICD-10 update of inactive term Thoracic and lumbosacral neuritis 08/05/2007 Lumbosacral spondylosis 08/05/2007 Spinal stenosis of lumbar re gion without neurogenic claudication 08/05/2007 HTN, goal below 140/90 documented as of this encounter (statuses as of 04/20/2023) Resolved Problems Problem Noted Date Diagnosed Date Resolved Date Major depressive disorder, s xochilt episode, moderate 03/23/2022 03/16/2023 Atherosclerosis of false pass co ronary artery of false pass heart with angina pectoris 09/07/20172018 Inflammation of [...] as of this encounter (statuses as of 04/20/2023) Immunizations Name Administration Dates Next Due COVID-19 [...] encounter Miscellaneous Notes * Telephone Encounter - Mukul Comer MD [...] 05/01/2023 10:00 AM EST Office Visit Cardiology, [facility] [address] [place] [address] Crissy Redmond CRNP [address] [facility] [place] [address] 05/09/2023 7:30 AM EST Imaging Radiology [facility] [address] [facility] [address] [place] [address] 05/11/2023 11:10 AM EST Office Visit [facility] [address] [place] [phone] Amparo Rich, [address] [place] [address] 10/24/2023 3:00 PM EDT Office Visit Neurology, [facility] [address] [place] [phone] Oc Owens, DO [address], [place] [id number] Scheduled Procedures Name Priority Associated Diagnoses Date/Ti me COLONOSCOPY FLEXIBLE PROXIMAL DIAGNOSTIC Recall Gastrointestinal hemorrhage with melena History of colon polyps ESOPHAGOGASTRODUODENOSCOPY ( EGD), FLEXIBLE, TRANSORAL, DIAGNOSTIC Recall Gastrointestinal hemorrhage with melena History of colon polyps Health Maintenance Due Date Last Done Comments Alpha-1 Antitrypsin 1958 CKD PHOS USE SMARTSET 99936 1958 Hepatitis B (1 of 3 - [...] Additional history exists CKD HGB USE SMARTSET 81918 04/12/202404/12, 08/02/2022, 11/18/2021, Additional history exists O2 ASSESSMENT COMPLETED IN PAST YEAR FOR COPD 04/12/2024 04/12/2023 DTaP,Tdap,and Td Vaccines (2 - Td or Tdap) 10/05/2024 10/05/2014, 03/02/2008 LUNG CANCER SCREENING - USE SMARTSET 59011 Completed 08/12/2019, 06/07/2019, 12/19/2018, Additional history exists Pneumococcal Vaccine: 65+ Years Completed 12/01/2019, 03/13/2012 GARDASIL-HPV IMMUNIZATION SERIES Aged Out No longer eligible based on patient's age to complete this topic MENINGOCOCCAL (MENACTRA/MENVEO) Aged Out No longer eligible based on patient's age to complete this topic documented as of this encounter Medical Devices Not on filedocumented as of this encounter Care Teams Branch Customer Service Representative Relationship Specialty Start Date End Date Amparo Rich DO [address] [place] [address] PCP - General Family Medicine 02/21/22 documented as of this encounter
--- OUTSIDE RECORDS SUMMARY | 2023-05-26 07:27 | External Medical Summary | Summary of Care ---
Author Name Unknown Organization [facility] Address [address] [facility] [place] [address] Phone [phone] Care Team Providers Care Cut Off Worker Name Role Phone Amparo Rich DO Primary Care Provider + [phone] Reason for Referral * Evaluate & Treat - Unlimited Visits (Within 10 days (routine)) - Pending Review Specialty Diagnoses / Procedures Referred By Sheldon vega Referred To Contact Neurology Diagnoses Memory change Amparo Rich DO [address] [place] [address] Referral ID Status Reason Start Date Expiration Date Visits Requested Visits Authorized [id number] Pending Review Specialty Services Required 3 [phone] Question Answer Referral Priority Within 10 days (routine) Where should this appointment be scheduled? [facility] RE[facility]ERR[facility] QUESTIONS Memory/Cognition * Precert (Within 10 days (routine)) - Pending Review Specialty Diagnoses / Procedures Referred By Sheldon vega Referred To Contact Radiology Diagnoses Hallucinations, unspecified Memory change Procedures MRI BRAIN WITHOUT CONTRAST Amparo Rich DO [address] [place] [address] Referral ID Status Reason Start Date Expiration Date V isits Requested Visits Authorized [id number] Pending Review 04/12/2023 999 999 Reason for Visit * Reason Comments Hospital Follow-Up Pt daughter states t hat she has some concerns about pt living by herself, confused Encounter Details Date Type Department Care Team Description 04/12/2023 [facility] [place] [address] [facility] [id number] [facility] [address] [facility] [id number] Memory change*; Hallucinations, unspecified; Type 2 diabetes, HbA1C goal < 8% ([facility]); Atherosclerosis of [place] coronary artery of [place] heart without angina pectoris; HTN, goal below 140/90; Paroxysmal atrial fibrillation ([facility]); Chronic kidney disease, stage 3a ([facility]) Allergies Active Allergy Reactions Severity Noted Date Comments Bee Venom High 11/17/2011 Life threating reaction Morphine And Related 11/04/2002 vomitting with all types of pain meds documented as of this encounter (statuses as of 04/12/2023) Medications Medication Sig Dispensed Refills Start Date End Date Status EPIPEN 0.3 MG/0.3ML IJ DEVIIndications:Bee sting One injection into thigh as needed for severe allergic reaction 1 Device 5 10/08/2013 Active Blood Glucose Monitoring Suppl (ACCU-CHEK LEONORA PLUS) w/Device KITIndications:Type 2 diabetes, HbA1C goal < 8% ([facility]) Use 4 times a day to check blood sugar. 1 Kit 0 04/24/2019 Active Cyanocobalamin (B-12-SL) 1000 MCG SL TabletIndications:L ow serum vitamin B12 Place 1,000 mcg under the tongue daily. 90 Tab 3 03/02/2020 Active oxygen IN GASIndications:Noct urnal hypoxemia 2 L of oxygen while sleeping 1 Each 0 01/20/2021 Active Additional Information Patient not taking.Reported on 01/31/2023 oxygen IN GASIndications:Noct urnal hypoxemia,COPD, group B, by GOLD 2017 classification ([facility]) Use 2 L/min(Oxygen) as directed continuous. concentrated and home fill with portability 1 Each 0 01/21/2021 Active Additional Information Patient not taking.Reported on 01/31/2023 Premarin 0.625 MG/GM Vaginal Cream (Estrogens, Conjugated)Indicati ons:Postmenopausal atrophic vaginitis Administer into the vagina 0.5 g before bedtime. As directed.. 42.5 g 5 07/21/2021 Active Additional Information Patient not taking.Reported on 03/16/2023 Accu-Chek Leonora Plus In Vitro Strip (Glucose Blood)Indications:T ype 2 diabetes, HbA1C goal < 8% (HCC) Test blood sugar 4 times a day 100 Strip 5 07/27/2021 Active BD Swab Single Use Regular Pad Use prior to testing 100 Each 5 07/27/2021 Active OneTouch Delica Lancets 33GIndications:Type 2 diabetes, HbA1C goal < 8% (HCC) Use to test Blood 100 Each 5 07/27/2021 Active Pseudoephedrine HCl ER 120 MG Oral Tablet Extended Release 12 Hour Take 1 Tablet by mouth 2 times a day as needed. 0 Active Fluticasone Propionate 50 MCG/ACT Nasal SuspensionIndicatio ns:Chronic rhinitis Administer into each nostril 2 Sprays in the morning. 18.2 mL 3 12/02/2021 Active Fluconazole 150 MG Oral Tablet (Diflucan) Take 1 Tablet by mouth once as needed. 0 Active Gabapentin 800 MG Oral Tablet (Neurontin)Indicati ons:Thoracic and lumbosacral neuritis Take 1 Tablet by mouth in the morning. 90 Tablet 3 08/02/2022 Active Lisinopril 10 MG Oral Tablet (Prinivil)Indicatio ns:Type 2 diabetes, HbA1C goal < 8% (HCC),HTN, goal below 140/90 Take 1 Tablet by mouth in the morning. 90 Tablet 3 08/02/2022 Active metFORMIN HCl 500 MG Oral Tablet (Glucophage)Indicat ions:Type 2 diabetes, HbA1C goal < 8% (HCC) Take 1 Tablet by mouth 2 times a day with morning and evening meals. 180 Tablet 3 08/09/2022 Active Diclofenac Sodium 1 % External Gel (Voltaren)Indicatio ns:Tendonitis of ankle or foot Apply 2-4 grams to right foot four times daily as needed 150 g 3 10/27/2022 Active Nitroglycerin 0.4 MG Sublingual Tablet Sublingual (Nitrostat)Indicati ons:Atherosclerosis of [place] coronary artery of [place] heart with angina pectoris (HCC) Place 1 Tablet under the tongue every 5 minutes as needed for Pain, Chest. up to 3 doses in 15 minutes 25 Tablet 11 10/27/2022 Active Empagliflozin 25 MG Oral Tablet (Jardiance)Indicati ons:Type 2 diabetes, HbA1C goal < 8% (HCC) Take 1 Tablet by mouth in the morning. 90 Tablet 1 11/23/2022 Active EpiPen 2-Gualberto 0.3 MG/0.3ML Injection Solution Auto-injectorIndica tions:Allergic reaction to bee sting For a severe reaction: Place orange end against the outer thigh, press firmly, hold in place for 10 seconds and go to the Emergency room. 1 Each 3 11/23/2022 Active Zoster Vac Recomb Adjuvanted 50 MCG/0.5ML Intramuscular Suspension Reconstituted (Shingrix)Indicatio ns:Need for shingles vaccine Inject 0.5 mL into a large muscle now and repeat dose in 60 to 180 days 1 Each 1 12/05/2022 Active Atorvastatin Calcium 80 MG Oral Tablet (Lipitor)Indication s:Mixed dyslipidemia Take 1 Tablet by mouth in the morning. 90 Tablet 3 12/25/2022 Active Folic Acid 1 MG Oral TabletIndications:I liza deficiency anemia, unspecified iron deficiency anemia type Take 1 Tablet by mouth in the morning. 90 Tablet 5 12/25/2022 Active Sertraline HCl 25 MG Oral Tablet (Zoloft)Indications :Stressful life event affecting family Take 1 Tablet [...] before bedtime. 60 Tablet 5 03/16/2023 Active Sulfamethoxazole-Tr imethoprim 800-160 MG Oral Tablet (Bactrim DS) Take 1 Tablet by mouth in the morning and 1 Tablet before bedtime. Until gone. 10 Tablet 0 03/29/2023 Active Oxybutynin Chloride ER 5 MG Oral Tablet Extended Release 24 Hour (Ditropan XL)Indications:Urin андрей incontinence, nocturnal enuresis Take by mouth 1 Tablet in the morning. Do not cut, crush or chew. 30 Tablet 11 11/18/2021 04/12/20 23 Discontinu ed([facility]) hydrOXYzine HCl 10 MG Oral Tablet (Atarax)Indications :Anxiety TAKE 1 TABLET BY MOUTH TWICE A DAY NEEDED FOR ANXIETY 30 Tablet 0 12/09/2021 04/12/20 Discontinu ed([facility]) traMADol HCl 50 MG Oral Tablet (Ultram)Indications :Chronic pain syndrome,MEDICATION USE AGREEMENT Take 1 Tablet by mouth in the morning and 1 Tablet at noon and 1 Tablet before bedtime. 90 Tablet 0 12/20/2022 04/12/20 Discontinu ed([facility]) traZODone HCl 100 MG Oral Tablet (Desyrel)Indication s:Persistent insomnia Take 1 Tablet by mouth at bedtime. 90 Tablet 1 01/30/2023 04/12/20 Discontinu ed([facility]) documented as of this encounter (statuses as of 04/12/2023) Active Problems Problem Noted Date Mitral valve insufficiency 03/16/2023 Atherosclerosis of [place] co ronary artery of [place] heart with angina pectoris 03/23/2022 Paroxysmal atrial fibrillation Chronic kidney disease, stage 3a 021 Overview: Per CKD protocol Low serum vitamin B12 03/02/2020 COPD, group B, by GOLD 2017 classificati on 10/06/2019 Overview: Per COPD GOLD Classification Major depressive disorder, recurrent, un specified 05/05/2019 Centrilobular emphysema 01/29/2019 Nocturnal hypoxemia 09/25/2018 Diabetic polyneuropathy associated with type 2 diabetes mellitus 10/30/2016 Type 2 diabetes, HbA1C goal < 8% 014 Coronary atherosclerosis of [place] coron андрей artery 02/21/2012 S/P angioplasty with stent 02/21/2012 Overview: Diagnonal #1. [facility] 02/16/12 Mixed dyslipidemia 01/05/2012 Tobacco use disorder 01/05/2012 Major depressive disorder 01/10/2011 Overview: ICD-10 update of inactive term Thoracic and lumbosacral neuritis 2007 Lumbosacral spondylosis 08/05/2007 Spinal stenosis of lumbar region without neurogenic claudication 08/05/2007 HTN, goal below 140/90 documented as of this encounter (statuses as of 04/12/2023) Resolved Problems Problem Noted Date Resolved Date Major depressive disorder, single episode, moder ate 03/23/2022 03/16/2023 Atherosclerosis of [place] co ronary artery of [place] heart with angina pectoris 09/07/2017 06/27/2018 Inflammation [...] as of this encounter (statuses as of 04/12/2023) Immunizations Name Administration Dates Next Due COVID-19 [...] Passive Smoke Exposure: Current Smokeless Tobacco: Never Tobacco Cessation:Ready to Q uit: Not Asked; Counseling Given: Not Answered Passive Exposure Comments:Pt states only her own. [...] on file documented as of this encounter Last Filed Vital Signs Vital Sign Reading Time Taken Comments Blood Pressure 122/80 04/12/2023 12:06 PM EDT Pulse 81 04/12/2023 12:06 PM EDT Temperature 36.2 C (97.1 F) 04/12/2023 12:06 PM E DT Respiratory Rate 18 04/12/2023 12:06 PM EDT Oxygen Saturation 98% 04/12/2023 12:06 PM EDT Inhaled Oxygen Concentration - - Weight 65 kg (143 lb 3.2 oz) 04/12/2023 12:06 PM EDT Height 149.9 cm (4' 11") 04/12/2023 12:06 PM EDT Body Mass Index 28.92 04/12/2023 12:06 PM EDT documented in this encounter Progress Notes * Amparo Rich, DO - 04/12/2023 12:05 PM EDT Subjective: Amalia Baker is a 82 year old female. Chief Complaint Patient presents with Hospital Follow-Up Pt daughter states that she has some concerns about pt living by herself, confused HPI: 82 year old female here today with her daughter, Yolanda about episodes of confusion. Since she was dced from [facility]. It appears the only medication changes were her metoprolol from 75 [address] Aguayo in this office due to elevated HR> it is unclear if she is taking all of her meds. She did completed bactrim for UTI. Will repeat urine today. She did have admission for CHF exacerbation. She is starting to hallucinate, that people are there when they aren't. Daughter is worried about her staying alone. They will bring her medications in at her next OV. I updated med list and daughterwill check this at home. PHM: 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 M48.061 HTN, goal below 140/90 I10 Major depressive disorder F32.9 Mixed dyslipidemia E78.2 Tobacco use disorder F17.200 Coronary atherosclerosis of [place] coronary artery I25.10 S/P angioplasty with stent Z95.820 Type 2 diabetes, HbA1C goal < 8% ([facility]) E11.9 Diabetic polyneuropathy associated with type 2 diabetes mellitus ([facility]) E11.42 Nocturnal hypoxemia G47.34 Centrilobular emphysema ([facility]) J43.2 Major depressive disorder, recurrent, unspecified ([facility]) F33.9 COPD, group B, by GOLD 2017 classification ([facility]) J44.9 Low serum vitamin B12 E53.8 Chronic kidney disease, stage 3a ([facility]) N18.31 Paroxysmal atrial fibrillation ([facility]) I48.0 Atherosclerosis of [place] coronary artery of [place] heart with angina pectoris ([facility]) I25.119 Mitral valve insufficiency I34.0 Current Outpatient Medications Medication Sig Dispense Refill EPIPEN 0.3 MG/0.3ML IJ EVA One injection into thigh as needed for severe allergic reaction 1 Device 5 Blood Glucose Monitoring Suppl (ACCU-CHEK LEONORA PLUS) w/Device KIT Use 4 times a day to check bloodsugar. 1 Kit 0 Cyanocobalamin (B-12-SL) [address] 1,000 mcg under the tongue daily. 90 Tab 3 Accu-Chek Leonora Plus In Vitro Strip (Glucose Blood) Test blood sugar 4 times a day 100 Strip 5 BD Swab Single Use Regular Pad Use prior to testing 100 Each 5 OneTouch Delica Lancets 33G Use to test Blood 100 Each 5 Pseudoephedrine HCl ER 120 MG Oral Tablet Extended Release 12 Hour Take 1 Tablet by mouth 2 times aday as needed. Fluticasone Propionate 50 MCG/ACT Nasal Suspension Administer into each nostril 2 Sprays in the morning. 18.2 mL 3 hydrOXYzine HCl 10 MG Oral Tablet (Atarax) TAKE 1 TABLET BY MOUTH TWICE A DAY NEEDED FOR [id number] Tablet 0 Fluconazole 150 MG Oral Tablet (Diflucan) Take 1 Tablet by mouth once as needed. Gabapentin 800 MG Oral Tablet (Neurontin) Take 1 Tablet by mouth in the morning. 90 Tablet 3 Lisinopril 10 MG Oral Tablet (Prinivil) Take 1 Tablet by mouth in the morning. 90 Tablet 3 metFORMIN HCl 500 MG Oral Tablet (Glucophage) Take 1 Tablet by mouth 2 times a day with morning andevening meals. 180 Tablet 3 Diclofenac Sodium 1 % External Gel (Voltaren) Apply 2-4 grams to right foot four times daily as needed 150 g 3 Nitroglycerin 0.4 MG Sublingual Tablet Sublingual (Nitrostat) Place 1 Tablet under the tongue every5 minutes as needed for Pain, Chest. up to 3 doses in 15 minutes 25 Tablet 11 Empagliflozin 25 MG Oral Tablet (Jardiance) Take 1 Tablet by mouth in the morning. 90 Tablet 1 EpiPen 2-Gualberto 0.3 MG/0.3ML Injection Solution Auto-injector For a severe reaction: Place orange end against the outer thigh, press firmly, hold in place for 10 seconds and go to the Emergency room. 1 Each 3 Zoster Vac Recomb Adjuvanted 50 MCG/0.5ML Intramuscular Suspension Reconstituted (Shingrix) Inject 0.5 mL into a large muscle now and repeat dose in 60 to 180 days 1 Each 1 traMADol HCl 50 MG Oral Tablet (Ultram) Take 1 Tablet by mouth in the morning and 1 Tablet at noon and 1 Tablet before bedtime. 90 Tablet 0 Atorvastatin Calcium 80 MG Oral Tablet (Lipitor) Take 1 Tablet by mouth in the morning. 90 Tablet 3 Folic Acid 1 MG Oral Tablet Take 1 Tablet by mouth in the morning. 90 Tablet 5 traZODone HCl 100 MG Oral Tablet (Desyrel) Take 1 Tablet by mouth at bedtime. 90 Tablet 1 Sertraline HCl 25 MG Oral Tablet (Zoloft) Take 1 Tablet by mouth in the morning. 90 Tablet 1 Furosemide 40 MG Oral Tablet (Lasix) Take 1 Tablet by mouth once a day on Sunday, Sunday, and Sunday only. Metoprolol Succinate ER 100 MG Oral Tablet Extended Release 24 Hour (toPROL XL) Take 1 Tablet by mouth in the morning and 1 Tablet before bedtime. 60 Tablet 5 Sulfamethoxazole-Trimethoprim 800-160 MG Oral Tablet (Bactrim DS) Take 1 Tablet by mouth in the morning and 1 Tablet before bedtime. Until gone. 10 Tablet 0 oxygen IN GAS 2 L of oxygen while sleeping (Patient not taking: Reported on 01/31/2023) 1 Each 0 oxygen IN GAS Use 2 L/min(Oxygen) as directed continuous. concentrated and home fill with portability (Patient not taking: Reported on 01/31/2023) 1 Each 0 Premarin 0.625 MG/GM Vaginal Cream (Estrogens, Conjugated) Administer into the vagina 0.5 g before bedtime. As directed.. (Patient not taking: Reported on 03/16/2023) 42.5 g 5 Oxybutynin Chloride ER 5 MG Oral Tablet Extended Release 24 Hour (Ditropan XL) Take by mouth 1 Tablet in the morning. Do not cut, crush or chew. (Patient not taking: Reported on 03/16/2023) 30 Tablet 11 No current facility-administered medications for this visit. Review of patient's allergies indicates: Allergen Reactions Bee Venom Life threating reaction Morphine And Related vomitting with all types of pain meds Objective: BP 122/80 (BP Site: Right Arm, BP Position: Sitting, BP Cuff Size: Regular) | Pulse 81 | Temp 36.2 C (97.1 F) (Temporal Artery) | Resp 18 | Ht 1.499 m (4' 11") | Wt 65 kg (143 lb 3.2 oz) | SpO2 98% | BMI 28.92 kg/m | BSA 1.64 m Physical Exam: General: alert, healthy, and no distress Heart: regular rate & rhythm, no murmur, and no gallops Lungs: chest symmetric with normal AP diameter, no chest deformities noted, no chest wall tenderness, lungs clear to auscultation Abdomen: abdomen soft, non-tender, normal bowel sounds, and no masses or organomegaly Extremities: no edema ASSESSMENT/PLAN: Hallucinations, unspecified (Primary) - MRI BRAIN WITHOUT CONTRAST; Future; Expected date: 04/12/2023 - TSH WITH FREE T4 IF INDICATED; Future; Expected date: 04/12/2023 Memory change - MRI BRAIN WITHOUT CONTRAST; Future; Expected date: 04/12/2023 - CULTURE, URINE, QUANTITATIVE - NEUROLOGY REFERRAL OP Type 2 diabetes, HbA1C goal < 8% ([facility]) - HEMOGLOBIN A1C; Future; Expected date: 04/12/2023 Atherosclerosis of [place] coronary artery of [place] heart without angina pectoris HTN, goal below 140/90 Paroxysmal atrial fibrillation (HCC) Chronic kidney disease, stage 3a (HCC) - BASIC METABOLIC PANEL; Future; Expected date: 04/12/2023 - CBC; Future; Expected date: 04/12/2023 Check-out note: Needs MRI brain. Neurology referral. Labs today. Come back may 11 her appt was canceled ok to use hosp dc Amparo Rich DO documented in this encounter Nursing Notes * TYREE Mcnamara - 04/12/2023 12:06 PM EDT Amalia Baker is a 82 year old female who presents today for Chief Complaint Patient presents with Hospital Follow-Up Pt daughter states that she has some concerns about pt living by herself, confused documented in this encounter Miscellaneous Notes * Addendum Note - TYREE Mcnamara - 04/12/2023 2:25 PM EDTAddended by: CARLOS CRAWFORD on: 04/12/2023 02:25 PM Modules accepted: Orders documented in this encounter Plan of Treatment Upcoming Encounters Date Type Specialty Care Team Description 04/19/2023 Office Visit Cardiology Enoch Che, DO [address] [place] [address] 05/09/2023 Imaging Radiology 05/11/2023 Office Visit Family Medicine Amparo Rich, DO [address], [place] [id number] 10/24/2023 Office Visit Neurology Oc Owens, DO [address] [place] [address] Pending Results Name Type Priority Associated Diagnoses Date /Time BASIC METABOLIC PANEL Lab Routine Chronic kidney disease, stage 3a (HCC) 04/12/2023 1:10 PM EDT CBC Lab Routine Chronic kidney disease, stage 3a (HCC) 04/12/2023 1:10 PM EDT HEMOGLOBIN A1C Lab Routine Type 2 diabetes, HbA1C goal < 8% (HCC) 04/12/2023 1:10 PM EDT TSH WITH FREE T4 IF INDICATED Lab Routine Hallucinations, unspecified 04/12/2023 1:10 PM EDT CULTURE, URINE, QUANTITATIVE Lab Routine Memory change 04/12/2023 2:26 PM EDT Scheduled Orders Name Type Priority Associated Diagnoses Orde r Schedule BASIC METABOLIC PANEL Lab Routine Chronic kidney disease, stage 3a (HCC) Expected: 04/12/2023 (Approximate), Expires: 04/11/2024 CBC Lab Routine Chronic kidney disease, stage 3a (HCC) Expected: 04/12/2023 (Approximate), Expires: 04/11/2024 HEMOGLOBIN A1C Lab Routine Type 2 diabetes, HbA1C goal < 8% (HCC) Expected: 04/12/2023 (Approximate), Expires: 04/11/2024 MRI BRAIN WITHOUT CONTRAST Medical Imaging Routine Hallucinations, unspecified Memory change Expected: 04/12/2023, Expires: 05/13/2024 TSH WITH FREE T4 IF INDICATED Lab Routine Hallucinations, unspecified Expected: 04/12/2023 (Approximate), Expires: 04/11/2024 URINALYSIS, POINT OF CARE (ENTER/EDIT) Point of Care Testing Routine Memory change Ordered: 04/12/2023 Scheduled Procedures Name Priority Associated Diagnoses Date/Ti me COLONOSCOPY FLEXIBLE PROXIMAL DIAGNOSTIC Recall Gastrointestinal hemorrhage with melena History of colon polyps ESOPHAGOGASTRODUODENOSCOPY ( EGD), FLEXIBLE, TRANSORAL, DIAGNOSTIC Recall Gastrointestinal hemorrhage with melena History of colon polyps Scheduled Referrals Name Type Priority Associated Diagnoses Orde r Schedule NEUROLOGY REFERRAL OP Referral Within 10 days (routine) Memory change Ordered: 04/12/2023 Health Maintenance Due Date Last Done Comments Alpha-1 Antitrypsin 1960 CKD PHOS USE SMARTSET 40337 1960 Zoster Vaccines (2 of 3) 09/24/2012 [...] exists DIABETES-EYE EXAM 05/29/2023 05/29/2022, , 03/09/2016 GFR 06/27/2023 12/25/2022, 02/0 01/2023, 11/18/2021, Additional history exists HbA1c 06/27/2023 12/25/2022, 020 01/2023, 11/18/2021, Additional history exists CKD HGB USE SMARTSET 85177 08/02/202308/02, 11/18/2021, 07/31/2021, Additional history exists COLONOSCOPY-EVERY 5 YRS AGES 18-100 08/02/2023 08/02/2018, 08/02/2018, 08/25/2011 Diabetic Foot Exam 08/02/2023 08/02/2022, 0 07/21/2021, 10/05/2020, Additional history exists O2 ASSESSMENT COMPLETED IN PAST YEAR FOR COPD 03/16/2024 03/16/2023 DTaP,Tdap,and Td Vaccines (2 - Td or Tdap) 10/05/2024 10/05/2014, 03/02/2008 LUNG CANCER SCREENING - USE SMARTSET 27960 Completed 08/12/2019, 06/07/2019, 12/19/2018, Additional history exists [...] as of this encounter Visit Diagnoses Diagnosis Memory change- Primary Memory loss Hallucinations, unspecified Type 2 diabetes, HbA1C goal < 8% (HCC) Type II or unspecified type diabetes mellitus without mention of complication, not stated as uncontrolled Atherosclerosis of [place] coronary artery of [place] heart without angina pectoris HTN, goal below 140/90 Unspecified essential hypertension Paroxysmal atrial fibrillation (HCC) Atrial fibrillation Chronic kidney disease, stage 3a (HCC) documented in this encounter Care Teams Cut Off Worker Relationship Specialty Start Date End Date Amparo Rich, [address] [place] [address] [place] [address] PCP - General Family Medicine 02/21/22 documented as of this encounter
--- OUTSIDE RECORDS SUMMARY | 2023-05-26 07:27 | External Medical Summary ---
Author Name Unknown Address Unknown Organization K01[place] [place] [address] [place] [address] Laboratory Report Ordering Provider Test Date Status BIANKA PEÑA 04/12/2023 13:10:16 Final Observation Date Value Abnormality Reference (Units ) Status TSH 04/12/2023 13:10:16 3.39 0.27-4.20 (uIU/mL) Final Performing Location [facility] [place] [address] [place] [address]
--- OUTSIDE RECORDS SUMMARY | 2023-05-26 07:27 | External Medical Summary | Summary of Care ---
Author Name Unknown Organization [facility] Address [address] [place] [address] Phone [phone] Care Team Providers Care Tile Machine Operator Name Role Phone HarrisAmparo valverde Primary Care Provider [phone] Reason for Visit * Reason Onset Date Comments Other 03/16/2023 Encounter Details Date Type Department Care Team Description 03/16/2023 Telephone [facility] [address] [place] [address] Maddie Aguayo MD [address] [place] [address] Other Allergies Active Allergy Reactions Severity Noted Date Comments Bee Venom High 11/17/2011 Life threating reaction Morphine And Related 11/04/2002 vomitting with all types of pain meds documented as of this encounter (statuses as of 03/29/2023) Medications Medication Sig Dispensed Refills Start Date [...] B, by GOLD 2017 classification ([facility]) Use 2 L/min(Oxygen) as directed [...] test Blood 100 Each 5 07/27/2021 Active Oxybutynin Chloride ER 5 MG Oral Tablet Extended Release 24 Hour (Ditropan XL)Indications:Urina ry incontinence, nocturnal enuresis Take by mouth 1 Tablet in the morning. Do not cut, crush or chew. 30 Tablet 11 11/18/2021 Active Additional Information Patient not taking.Reported on 03/16/2023 Pseudoephedrine HCl ER 120 MG Oral Tablet Extended Release 12 Hour Take 1 Tablet by mouth 2 times a day as needed. 0 Active Fluticasone Propionate 50 MCG/ACT Nasal SuspensionIndication s:Chronic rhinitis Administer into each nostril 2 Sprays in the morning. 18.2 mL 3 12/02/2021 Active hydrOXYzine HCl 10 MG Oral Tablet (Atarax)Indications: Anxiety TAKE 1 TABLET BY MOUTH TWICE A DAY NEEDED FOR ANXIETY 30 Tablet 0 12/09/2021 Active Fluconazole 150 MG Oral Tablet (Diflucan) [...] MG Sublingual Tablet Sublingual (Nitrostat)Indicatio ns:Atherosclerosis of [place] coronary artery of [place] heart with angina pectoris (HCC) Place 1 [...] 180 days 1 Each 1 12/05/2022 Active traMADol HCl 50 MG Oral Tablet (Ultram)Indications: Chronic pain syndrome,MEDICATION USE AGREEMENT Take 1 Tablet by mouth in the morning and 1 Tablet at noon and 1 Tablet before bedtime. 90 Tablet 0 12/20/2022 Active Atorvastatin Calcium 80 MG Oral Tablet (Lipitor)Indications :Mixed dyslipidemia Take 1 Tablet by mouth in the morning. 90 Tablet 3 12/25/2022 Active Folic Acid 1 MG Oral TabletIndications:Ir on deficiency anemia, unspecified iron deficiency anemia type Take 1 Tablet by mouth in the morning. 90 Tablet 5 12/25/2022 Active traZODone HCl 100 MG Oral Tablet (Desyrel)Indications :Persistent insomnia Take 1 Tablet by mouth at bedtime. 90 Tablet 1 01/30/2023 Active Sertraline HCl 25 MG Oral Tablet [...] the morning and 1 Tablet before bedtime. Do all this for 3 days. Until gone. 6 Tablet 0 03/16/2023 3 documented as of this encounter (statuses as of 03/29/2023) Active Problems Problem Noted Date Mitral valve insufficiency 03/16/2023 Atherosclerosis of [place] co ronary artery of [place] heart with angina pectoris 03/23/2022 Paroxysmal atrial [...] goal < 8% 014 Coronary atherosclerosis of [place] coron андрей artery 02/21/2012 S/P angioplasty with stent 02/21/2012 Overview: Diagnonal #1. 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 with angina pectoris 09/07/2017 06/27/2018 Inflammation [...] as of this encounter (statuses as of 03/29/2023) Immunizations Name Administration Dates Next Due COVID-19 [...] encounter Miscellaneous Notes * Telephone Encounter - Shasta Alicea LPN - 03/29/2023 1:11 PM EDT Spoke to patient's son, verbalized understanding * Telephone Encounter - Lynette Holm LPN - 03/28/2023 10:45 AM EDT Left message for pt's son to call back See other TE's as well * Telephone Encounter - SAMIR Johnson - 03/19/2023 3:56 PM EDT Unable to LVM/mailbox full * Telephone Encounter - Maddie Aguayo MD - 03/16/2023 3:49 PM EDT Please advise pt to increase metoprolol 100 mg bid To control her HR And just sent out med documented in this encounter Plan of Treatment Upcoming Encounters Date Type Specialty Care Team Description 04/12/2023 Office Visit [facility] [address] [facility] [phone] 04/19/2023 Office Visit Cardiology Enoch Che DO [address] [place] [address] Scheduled Procedures Name Priority Associated Diagnoses Date/Ti me COLONOSCOPY FLEXIBLE PROXIMAL DIAGNOSTIC Recall Gastrointestinal hemorrhage with melena History of colon polyps ESOPHAGOGASTRODUODENOSCOPY ( EGD), FLEXIBLE, TRANSORAL, DIAGNOSTIC Recall Gastrointestinal hemorrhage with melena History of colon polyps Health Maintenance Due Date Last Done Comments Alpha-1 Antitrypsin 1958 CKD PHOS USE SMARTSET 39867 1960 Zoster Vaccines (2 of 3) 09/24/2012 [...] 11/18/2021, Additional history exists HbA1c 06/27/2023 12/25/2022, 02/0 01/2023, 11/18/2021, Additional history exists CKD HGB USE SMARTSET 19980 08/02/202308/02, 11/18/2021, 07/31/2021, Additional history exists COLONOSCOPY-EVERY 5 YRS AGES 18-100 08/02/2023 08/02/2018, 08/02/2018, 08/25/2011 Diabetic Foot Exam 08/02/2023 08/02/2022, 0 07/21/2021, 10/05/2020, Additional history exists O2 ASSESSMENT COMPLETED IN PAST YEAR FOR COPD 03/16/2024 03/16/2023 DTaP,Tdap,and Td Vaccines (2 - Td or Tdap) 10/05/2024 10/05/2014, 03/02/2008 LUNG CANCER SCREENING - USE SMARTSET 86324 Completed 08/12/2019, 06/07/2019, 12/19/2018, Additional history exists [...] as of this encounter Care Teams Tile Machine Operator Relationship Specialty Start Date End Date Amparo Rich, [address] [place] [address] PCP - General Family Medicine 02/21/22 documented as of this encounter
--- OUTSIDE RECORDS SUMMARY | 2023-05-26 07:27 | External Medical Summary | Summary of Care ---
Author Name Unknown Organization [facility] Address [address] [facility] [place] [address] Phone [phone] Care Team Providers Care Fraud Prevention Analyst Name Role Phone Amparo Rich DO Primary Care Provider + [phone] Reason for Referral * Evaluate & Treat - Unlimited Visits (Within 10 days (routine)) - Pending Review Specialty Diagnoses / Procedures Referred By Sheldon vega Referred To Contact Neurology Diagnoses Memory change Amparo Rich DO [address] [place] [address] Referral ID Status Reason Start Date Expiration Date Visits Requested Visits Authorized [id number] Pending Review Specialty Services Required 3 [phone] Question Answer Referral Priority Within 10 days (routine) Where should this appointment be scheduled? [facility] REFERRAL QUESTIONS Memory/Cognition * Precert (Within 10 days (routine)) - Pending Review Specialty Diagnoses / Procedures Referred By Sheldon vega Referred To Contact Radiology Diagnoses Hallucinations, unspecified Memory change Procedures MRI BRAIN WITHOUT CONTRAST Amparo Rich DO [address] [place] [address] Referral ID Status Reason Start Date Expiration Date V isits Requested Visits Authorized [id number] Pending Review 04/12/[phone] Reason for Visit * Reason Comments Hospital Follow-Up Pt daughter states t hat she has some concerns about pt living by herself, confused Encounter Details Date Type Department Care Team Description 04/12/2023 [facility] [place] [address] [facility] [address] Amparo Rich DO [address] [facility] [phone] Memory change*; Hallucinations, unspecified; Type 2 diabetes, HbA1C goal < 8% ([facility]); Atherosclerosis of [place] coronary artery of [place] heart without angina pectoris; HTN, goal below 140/90; Paroxysmal atrial fibrillation ([facility]); Chronic kidney disease, stage 3a ([facility]) Allergies Active Allergy Reactions Severity Noted Date [...] 2 diabetes, HbA1C goal < 8% ([facility]) Use 4 times a day [...] group B, by GOLD 2017 classification ([facility]) Use 2 L/min(Oxygen) as directed [...] MG Sublingual Tablet Sublingual (Nitrostat)Indicati ons:Atherosclerosis of [place] coronary artery [...] 30 Tablet 11 11/18/2021 04/12/20 23 Discontinu ed([facility]) hydrOXYzine HCl 10 MG Oral Tablet (Atarax)Indications :Anxiety TAKE 1 TABLET BY MOUTH TWICE A DAY NEEDED FOR ANXIETY 30 Tablet 0 12/09/2021 04/12/20 Discontinu ed([facility]) traMADol HCl 50 MG Oral Tablet (Ultram)Indications :Chronic pain syndrome,MEDICATION USE AGREEMENT Take 1 Tablet by mouth in the morning and 1 Tablet at noon and 1 Tablet before bedtime. 90 Tablet 0 12/20/2022 04/12/20 Discontinu ed([facility]) traZODone HCl 100 MG Oral Tablet (Desyrel)Indication s:Persistent insomnia Take 1 Tablet by mouth at bedtime. 90 Tablet 1 01/30/2023 04/12/20 Discontinu ed([facility]) documented as of this encounter (statuses as [...] goal < 8% 014 Coronary atherosclerosis of [place] coron андрей artery 02/21/2012 S/P angioplasty with stent 02/21/2012 Overview: Diagnonal #1. [facility] 02/16/12 Mixed dyslipidemia 01/05/2012 Tobacco use disorder [...] episode, moder ate 03/23/2022 03/16/2023 Atherosclerosis of [place] co ronary artery of [place] heart with angina pectoris 09/07/2017 06/27/2018 Inflammation [...] of confusion. Since she was dced from [facility]. It appears the only medication changes [...] Tobacco use disorder F17.200 Coronary atherosclerosis of [place] coronary artery I25.10 S/P angioplasty with stent Z95.820 Type 2 diabetes, HbA1C goal < 8% ([facility]) E11.9 Diabetic polyneuropathy associated with type 2 diabetes mellitus ([facility]) E11.42 Nocturnal hypoxemia G47.34 Centrilobular emphysema ([facility]) J43.2 Major depressive disorder, recurrent, unspecified ([facility]) F33.9 COPD, group B, by GOLD 2017 classification ([facility]) J44.9 Low serum vitamin B12 E53.8 Chronic kidney disease, stage 3a ([facility]) N18.31 Paroxysmal atrial fibrillation ([facility]) I48.0 Atherosclerosis of [place] coronary artery of [place] heart with angina pectoris ([facility]) I25.119 Mitral valve insufficiency I34.0 Current Outpatient [...] BY MOUTH TWICE A DAY NEEDED FOR [id number] Tablet 0 Fluconazole 150 MG Oral Tablet [...] Type 2 diabetes, HbA1C goal < 8% ([facility]) - HEMOGLOBIN A1C; Future; Expected date: 04/12/2023 Atherosclerosis of [place] coronary artery of [place] heart without angina pectoris HTN, goal below [...] Cardiology Enoch Che, DO [address] [place] [address] 05/09/2023 Imaging Radiology 05/11/2023 Office Visit Family Medicine Amparo Rich, DO [address] [place], [place] [phone] 10/24/2023 Office Visit Neurology Oc Owens, DO [address] [place] [address] Pending Results Name Type Priority Associated Diagnoses [...] Hallucinations, unspecified Expected: 04/12/2023 (Approximate), Expires: 04/11/2024 Scheduled Procedures Name Priority Associated Diagnoses Date/Ti [...] Alpha-1 Antitrypsin 1958 CKD PHOS USE SMARTSET 18180 1960 Zoster Vaccines (2 of 3) 09/24/2012 [...] 05/29/2023 05/29/2022, , 03/09/2016 GFR 06/27/2023 12/25/2022, 020 01/2023, 11/18/2021, Additional history exists HbA1c 06/27/2023 12/25/2022, 0 01/2023, 11/18/2021, Additional history exists CKD HGB USE SMARTSET 39845 08/02/202308/02, 11/18/2021, 07/31/2021, Additional history exists COLONOSCOPY-EVERY 5 YRS AGES 18-100 08/02/2023 08/02/2018, 08/02/2018, 08/25/2011 Diabetic Foot Exam 08/02/2023 08/02/2022, 0 07/21/2021, 10/05/2020, Additional history exists O2 ASSESSMENT COMPLETED IN PAST YEAR FOR COPD 03/16/2024 03/16/2023 DTaP,Tdap,and Td Vaccines (2 - Td or Tdap) 10/05/2024 10/05/2014, 03/02/2008 LUNG CANCER SCREENING - USE SMARTSET 79424 Completed 08/12/2019, 06/07/2019, 12/19/2018, Additional history exists [...] Not on filedocumented as of this encounter Procedures Procedure Name Priority Date/Time Associated Diagnosis Comments URINALYSIS, POINT OF CARE (ENTER/EDIT) Routine 04/12/2023 2:29 PM EDT Memory change documented in this encounter Results * (ABNORMAL) URINALYSIS, POINT OF CARE (ENTER/EDIT) (04/12/2023 2:29 PM EDT) Color, Urine Yellow Yellow or Light Yellow Clarity, Urine Cloudy Clear Glucose, Urine 500(A) Negative mg/dL Bilirubin, Urine Negative Negative Ketone, Urine Negative Negative mg/dL Specific [place], Urine 1.010 1.003 - 1.030 Blood, Urine Negative Negative pH, Urine 5.5 5.0 - 7.5 units Protein, Urine Negative Negative mg/dL Urobilinogen, Urine 0.2 0.2 - 1.0 mg/dL Nitrite, Urine Negative Negative Esterase, Urine Negative Negative Urine 04/12/2023 2:29 PM EDT Amparo Rich DO LAB POINT OF CARE [facility] ENTER/EDIT ORDERABLES documented in this encounter Visit Diagnoses Diagnosis Memory change- Primary Memory loss Hallucinations, unspecified Type 2 diabetes, HbA1C goal < 8% (HCC) Type II or unspecified type diabetes mellitus without mention of complication, not stated as uncontrolled Atherosclerosis of [place] coronary artery of [place] heart without angina pectoris HTN, goal below 140/90 Unspecified essential hypertension Paroxysmal atrial fibrillation (HCC) Atrial fibrillation Chronic kidney disease, stage 3a (HCC) documented in this encounter Care Teams Fraud Prevention Analyst Relationship Specialty Start Date End Date Amparo Rich DO [address] [place] [address] PCP - General Family Medicine 02/21/22 documented as of this encounter
--- OUTSIDE RECORDS SUMMARY | 2023-05-26 07:27 | External Medical Summary ---
Author Name Unknown Address Unknown Organization [id number]:[facility] [place] [facility] [address] [place] [address] Laboratory Report Ordering Provider Test Date Status BIANKA PEÑA 04/12/2023 13:10:16 Final Observation Date Value Abnormality Reference (Units ) Status BUN 04/12/2023 13:10:16 23 Above high normal 6-20 (mg/dL) Final Creatinine 04/12/2023 13:10:16 1.6 Above high normal 0.5-1.0 (mg/dL) Final Glomerular filtration rate/1.73 sq M.predicted [Volume Rate/Area] in Serum, Plasma or Blood by Creatinine-based formula (CKD-EPI) 04/12/2023 13:10:16 33 Below low normal >=60 (mL/min) Final eGFR is calculated based on the CKD-EPI 2020 equation SODIUM 04/12/2023 13:10:16 140 135-146 (m mol/L) Final Potassium 04/12/2023 13:10:16 3.7 3.5-5.1 (m mol/L) Final Cl 04/12/2023 13:10:16 102 98-107 (mm ol/L) Final CO2 04/12/2023 13:10:16 25 22-32 (mmo l/L) Final Anion gap 04/12/2023 13:10:16 13 7-15 (mmol /L) Final Glucose 04/12/2023 13:10:16 177 Above high normal 70 -120 (mg/dL) Final Calcium 04/12/2023 13:10:16 9.4 8.4-10.2 ( mg/dL) Final Performing Location [facility] [place] [facility] [address] [place] [address]
--- OUTSIDE RECORDS SUMMARY | 2023-05-26 07:27 | External Medical Summary ---
Author Name Unknown Address Unknown Organization [id number]:[facility] [place] - [address] [place] [address] Laboratory Report Ordering Provider Test Date Status [id number] 04/12/2023 14:26:06 Final Observation Date Value Abnormality Reference (Units) Status Bacteria identified in Specimen by Culture 04/12/2023 14:26:06 No significant growth Final Test: Culture, Urine, Quanti tative
Specimen Source: Urine, Unspecified
Specimen Type: Urine
Specimen Date: 04/12/2023 2:26 PM
Result Date: 04/13/2023 4:27 PM
Result Status: Final result
Resulting Lab: [facility]
[address]
[place] [address]

CULTURE

No significant growth

null Performing Location [facility]ORY [facility] [place] - [address] [place] [address]
--- OUTSIDE RECORDS SUMMARY | 2023-05-26 07:27 | External Medical Summary | Summary of Care ---
Author Name Unknown Organization [facility] Address [address] [facility] [place] [address] Phone [phone] Care Team Providers Care Engineering Technical Writer Name Role Phone Amparo Rich DO Primary Care Provider + [phone] Reason for Referral * Evaluate & Treat - Unlimited Visits (Within 10 days (routine)) - Pending Review Specialty Diagnoses / Procedures Referred By Sheldon vega Referred To Contact Neurology Diagnoses Memory change Amparo Rich DO [address] [place] [address] Referral ID Status Reason Start Date Expiration Date Visits Requested Visits Authorized [id number] Pending Review Specialty Services Required 3 [phone] Question Answer Referral Priority Within 10 days (routine) Where should this appointment be scheduled? [facility] REFERRAL QUESTIONS Memory/Cognition * Precert (Within 10 days (routine)) - Pending Review Specialty Diagnoses / Procedures Referred By Sheldon vega Referred To Contact Radiology Diagnoses Hallucinations, unspecified Memory change Procedures MRI BRAIN WITHOUT CONTRAST Amparo Rich DO [address] [place] [address] Referral ID Status Reason Start Date Expiration Date V isits Requested Visits Authorized [id number] Pending Review 04/12/[phone] Reason for Visit * Reason Comments Hospital Follow-Up Pt daughter states t hat she has some concerns about pt living by herself, confused Encounter Details Date Type Department Care Team Description 04/12/2023 Office Visit [facility] [place] [address] [facility] [address] [facility]o Rich [facility] [address] [facility] [phone] Memory change*; Hallucinations, unspecified; Type 2 diabetes, HbA1C goal < 8% ([facility]); Atherosclerosis of [place] coronary artery of [place] heart without angina pectoris; HTN, goal below 140/90; Paroxysmal atrial fibrillation ([facility]); Chronic kidney disease, stage 3a ([facility]) Allergies Active Allergy Reactions Severity Noted Date [...] KITIndications:Type 2 diabetes, HbA1C goal < 8% ([facility]) Use 4 times a day to [...] hypoxemia,COPD, group B, by GOLD 2017 classification ([facility]) Use 2 L/min(Oxygen) as directed continuous. [...] MG Sublingual Tablet Sublingual (Nitrostat)Indicati ons:Atherosclerosis of [place] coronary artery of [place] heart with angina pectoris (HCC) Place 1 [...] 30 Tablet 11 11/18/2021 04/12/20 23 Discontinu ed([facility]) hydrOXYzine HCl 10 MG Oral Tablet (Atarax)Indications :Anxiety TAKE 1 TABLET BY MOUTH TWICE A DAY NEEDED FOR ANXIETY 30 Tablet 0 12/09/2021 04/12/20 Discontinu ed([facility]) traMADol HCl 50 MG Oral Tablet (Ultram)Indications :Chronic pain syndrome,MEDICATION USE AGREEMENT Take 1 Tablet by mouth in the morning and 1 Tablet at noon and 1 Tablet before bedtime. 90 Tablet 0 12/20/2022 04/12/20 Discontinu ed([facility]) traZODone HCl 100 MG Oral Tablet (Desyrel)Indication s:Persistent insomnia Take 1 Tablet by mouth at bedtime. 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 [facility] 02/16/12 Mixed dyslipidemia 01/05/2012 Tobacco use disorder [...] episode, moder ate 03/23/2022 03/16/2023 Atherosclerosis of [place] co ronary artery of [place] heart with angina pectoris 09/07/2017 06/27/2018 Inflammation [...] DO - 04/12/2023 12:05 PM EDT Subjective: Aamlia Baker is a 82 year old female. Chief Complaint Patient presents with Hospital Follow-Up Pt daughter states that she has some concerns about pt living by herself, confused HPI: 82 year old female here today with her daughter, Yolanda about episodes of confusion. Since she was dced from [facility]. It appears the only medication changes were [...] Tobacco use disorder F17.200 Coronary atherosclerosis of [place] coronary artery I25.10 S/P angioplasty with stent Z95.820 Type 2 diabetes, HbA1C goal < 8% ([facility]) E11.9 Diabetic polyneuropathy associated with type 2 diabetes mellitus ([facility]) E11.42 Nocturnal hypoxemia G47.34 Centrilobular emphysema ([facility]) J43.2 Major depressive disorder, recurrent, unspecified ([facility]) F33.9 COPD, group B, by GOLD 2017 classification ([facility]) J44.9 Low serum vitamin B12 E53.8 Chronic kidney disease, stage 3a ([facility]) N18.31 Paroxysmal atrial fibrillation ([facility]) I48.0 Atherosclerosis of [place] coronary artery of [place] heart with angina pectoris ([facility]) I25.119 Mitral valve insufficiency I34.0 Current Outpatient [...] BY MOUTH TWICE A DAY NEEDED FOR [id number] Tablet 0 Fluconazole 150 MG Oral Tablet [...] Type 2 diabetes, HbA1C goal < 8% ([facility]) - HEMOGLOBIN A1C; Future; Expected date: 04/12/2023 Atherosclerosis of [place] coronary artery of [place] heart without angina pectoris HTN, goal below [...] Cardiology Enoch Che, DO [address] [place] [address] 05/09/2023 Imaging Radiology 05/11/2023 Office Visit Family Medicine Amparo Rich, DO [address] [place], [place] [phone] 10/24/2023 Office Visit Neurology Oc Owens, DO [address] [place] [address] Pending Results Name Type Priority Associated Diagnoses [...] Alpha-1 Antitrypsin 1958 CKD PHOS USE SMARTSET 47378 1958 Zoster Vaccines (2 of 3) 09/24/2012 [...] Additional history exists CKD HGB USE SMARTSET 95644 08/02/202308/02, 11/18/2021, 07/31/2021, Additional history exists COLONOSCOPY-EVERY 5 YRS AGES 18-100 08/02/2023 08/02/2018, 08/02/2018, 08/25/2011 Diabetic Foot Exam 08/02/2023 08/02/2022, 0 07/21/2021, 10/05/2020, Additional history exists O2 ASSESSMENT COMPLETED IN PAST YEAR FOR COPD 03/16/2024 03/16/2023 DTaP,Tdap,and Td Vaccines (2 - Td or Tdap) 10/05/2024 10/05/2014, 03/02/2008 LUNG CANCER SCREENING - USE SMARTSET 54303 Completed 08/12/2019, 06/07/2019, 12/19/2018, Additional history exists [...] complication, not stated as uncontrolled Atherosclerosis of [place] coronary artery of [place] heart without angina pectoris HTN, goal below 140/90 Unspecified essential hypertension Paroxysmal atrial fibrillation (HCC) Atrial fibrillation Chronic kidney disease, stage 3a (HCC) documented in this encounter Care Teams Engineering Technical Writer Relationship Specialty Start Date End Date Amparo Rich, [address] [place] [address] [place] [address] PCP - General Family Medicine 02/21/22 documented as of this encounter
--- OUTSIDE RECORDS SUMMARY | 2023-05-26 07:27 | External Medical Summary | Summary of Care ---
Author Name Unknown Organization [facility] Address [address] [place] [address] Phone [phone] Care Team Providers Care Food Services Manager Name Role Phone Amparo Rich Primary Care Provider [phone] Encounter Details Date Type Department Care Team Description 03/19/2023 Refill Formerly [facility] [address] [place] [address] Maddie Aguayo MD [address] [place] [address] Allergies Active Allergy Reactions Severity Noted Date [...] KITIndications:Type 2 diabetes, HbA1C goal < 8% ([facility]) Use 4 times a day to [...] hypoxemia,COPD, group B, by GOLD 2017 classification ([facility]) Use 2 L/min(Oxygen) as directed continuous. [...] pe 2 diabetes, HbA1C goal < 8% ([facility]) Test blood sugar 4 times a day 100 Strip 5 07/27/2021 Active BD Swab Single Use Regular Pad Use prior to testing 100 Each 07/27/2021 Active OneTouch Delica Lancets 33GIndications:Type 2 diabetes, HbA1C goal < 8% ([facility]) Use to test Blood 100 Each [...] MG Sublingual Tablet Sublingual (Nitrostat)Indicatio ns:Atherosclerosis of [place] coronary artery of [place] heart with angina pectoris (HCC) Place 1 [...] Until gone. 6 Tablet 0 03/16/2023 3 Sulfamethoxazole-Tri methoprim 800-160 MG Oral Tablet (Bactrim DS) Take 1 Tablet by mouth in the morning and 1 Tablet before bedtime. Do all this for 4 days. Until gone. 8 Tablet 0 03/19/2023 3 documented as of this encounter (statuses as of 03/29/2023) Active Problems Problem Noted Date Mitral valve insufficiency 03/16/2023 Atherosclerosis of [place] co ronary artery of [place] heart with angina pectoris 03/23/2022 Paroxysmal atrial [...] goal < 8% 014 Coronary atherosclerosis of [place] coron андрей artery 02/21/2012 S/P angioplasty with stent 02/21/2012 Overview: Diagnonal #1. [facility] 02/16/12 Mixed dyslipidemia 01/05/2012 Tobacco [...] episode, moder ate 03/23/2022 03/16/2023 Atherosclerosis of [place] co ronary artery of [place] heart with angina pectoris 09/07/2017 06/27/2018 Inflammation [...] encounter Miscellaneous Notes * Addendum Note - Linda Johnson LPN - 03/29/2023 1:11 PM EDTAddended by: LINDA JOHNSON on: 03/29/2023 01:11 PM Modules accepted: Orders * Telephone Encounter - Linda Johnson LPN - 03/29/2023 1:09 PM EDT Spoke to patient's son, he would like antibiotic sent to [facility] * Telephone Encounter - Lynette Holm LPN - 03/28/2023 10:44 AM EDT Left message for pt's son to call back See other TE's as well * Telephone Encounter - SAMIR Johnson - 03/19/2023 4:17 PM EDT Unable to LVM/mailbox full * Telephone Encounter - Maddie Aguayo MD - 03/19/2023 7:38 AM EDT Urine culture was positive and bactrim should work 3 days med was sent And will extend Abx Tx for 4 more days Sent out documented in this encounter Plan of Treatment Upcoming Encounters Date Type Specialty Care Team Description 04/12/2023 Office Visit Family Medicine Amparo Rich, DO [address] [facility] [place] [address] 04/19/2023 Office Visit Cardiology Enoch Che DO [address] [place] [address] Scheduled Procedures Name Priority Associated Diagnoses Date/Ti me COLONOSCOPY FLEXIBLE PROXIMAL DIAGNOSTIC Recall Gastrointestinal hemorrhage with melena History of colon polyps ESOPHAGOGASTRODUODENOSCOPY ( EGD), FLEXIBLE, TRANSORAL, DIAGNOSTIC Recall Gastrointestinal hemorrhage with melena History of colon polyps Health Maintenance Due Date Last Done Comments Alpha-1 Antitrypsin 1958 CKD PHOS USE SMARTSET 36712 1960 Zoster Vaccines (2 of 3) 09/24/2012 [...] Additional history exists CKD HGB USE SMARTSET 45088 08/02/202308/02, 11/18/2021, 07/31/2021, Additional history exists COLONOSCOPY-EVERY 5 YRS AGES 18-100 08/02/2023 08/02/2018, 08/02/2018, 08/25/2011 Diabetic Foot Exam 08/02/2023 08/02/2022, 0 07/21/2021, 10/05/2020, Additional history exists O2 ASSESSMENT COMPLETED IN PAST YEAR FOR COPD 03/16/2024 03/16/2023 DTaP,Tdap,and Td Vaccines (2 - Td or Tdap) 10/05/2024 10/05/2014, 03/02/2008 LUNG CANCER SCREENING - USE SMARTSET 45856 Completed 08/12/2019, 06/07/2019, 12/19/2018, Additional history exists [...] filedocumented as of this encounter Care Teams Food Services Manager Relationship Specialty Start Date End Date Amparo Rich, [address] [place] [address] PCP - General Family Medicine 02/21/22 documented as of this encounter
--- OUTSIDE RECORDS SUMMARY | 2023-05-26 07:27 | External Medical Summary | Summary of Care ---
Author Name Unknown Organization [facility] Address [address] [place] [address] Phone [phone] Care Team Providers Care Lead Systems Analyst Name Role Phone Amparo Rich DO Primary Care Provider [phone] Reason for Visit * Reason Onset Date Comments Advice 03/28/2023 Encounter Details Date Type Department Care Team Description 03/28/2023 Telephone [place] [address] [place] [address] Amparo Rich DO [address] [place] [address] Advice Allergies Active Allergy Reactions Severity Noted Date [...] 2 diabetes, HbA1C goal < 8% ([facility]) Use 4 times a [...] group B, by GOLD 2017 classification ([facility]) Use 2 L/min(Oxygen) as [...] 2 diabetes, HbA1C goal < 8% ([facility]) Test blood sugar 4 times a day 100 Strip 07/27/2021 Active BD Swab Single Use Regular Pad Use prior to testing 100 Each 07/27/2021 Active OneTouch Delica Lancets 33GIndications:Type 2 diabetes, HbA1C goal < 8% ([facility]) Use to test Blood 100 Each 07/27/2021 Active Oxybutynin Chloride ER 5 MG [...] MG Sublingual Tablet Sublingual (Nitrostat)Indicatio ns:Atherosclerosis of [place] coronary artery of [place] heart with angina pectoris (HCC) Place 1 [...] before bedtime. 60 Tablet 5 03/16/2023 Active documented as of this encounter (statuses as of 03/29/2023) Active Problems Problem Noted Date Mitral valve insufficiency 03/16/2023 Atherosclerosis of [place] co ronary artery of [place] heart with angina pectoris 03/23/2022 Paroxysmal atrial [...] goal < 8% 014 Coronary atherosclerosis of [place] coron андрей artery 02/21/2012 S/P angioplasty with stent 02/21/2012 Overview: Diagnonal #1. [facility] 02/16/12 Mixed dyslipidemia 01/05/2012 Tobacco use disorder [...] episode, moder ate 03/23/2022 03/16/2023 Atherosclerosis of [place] co ronary artery of [place] heart with angina pectoris 09/07/2017 06/27/2018 Inflammation of sacroiliac joint 09/07/2017 08/06/2019 Exertional chest pain 08/25/2015 01/11/2018 Neck pain 09/30/2012 01/11/2018 Acute blood loss anemia 02/21/2012 01/12/20 Severe obesity with body mas s index [...] Encounter - Shasta Alicea LPN - 03/29/2023 1:08 PM EDT Pt's son aware of message-he will monitor symptoms for now * Telephone Encounter - Amparo Rich DO - 03/29/2023 12:40 PM EDT She has an arranged appt but not until 04/11 I would suggest if her memory issues are worse and having some hallucinations. I would suggest taking her back to the ER to make sure she does not have aninfection ie in her urine. Or another reason for mental status change would be stroke and she wouldneed immediate neuroimaging. * Telephone Encounter - PAPITO Kaplan ASSIST - 03/29/2023 11:56 AM EDT Please see below and advise. * Telephone Encounter - SAMIR Castillo - 03/28/2023 11:42 AM EDT Edward- adult child calling on behalf of patient, since patient has been home from hospital family has had concerns for patient having possible dementia. Patient is forgetting things, and talking about people who are - her spouse. Son believes medications were changed while patient was in hospital, believes this may be the issue. Wanting a call to discuss further. documented in this encounter Plan of Treatment Upcoming Encounters Date Type Specialty Care Team Description 04/12/2023 Office Visit Family Medicine Amparo Rich DO [address] [place] [address] 04/19/2023 Office Visit Cardiology Enoch Che, DO [address] [place] [address] Scheduled Procedures Name Priority Associated Diagnoses Date/Ti me COLONOSCOPY FLEXIBLE PROXIMAL DIAGNOSTIC Recall Gastrointestinal hemorrhage with melena History of colon polyps ESOPHAGOGASTRODUODENOSCOPY ( EGD), FLEXIBLE, TRANSORAL, DIAGNOSTIC Recall Gastrointestinal hemorrhage with melena History of colon polyps Health Maintenance Due Date Last Done Comments Alpha-1 Antitrypsin 1958 CKD PHOS USE SMARTSET 87179 1960 Zoster Vaccines (2 of 3) 09/24/2012 [...] Additional history exists CKD HGB USE SMARTSET 75296 08/02/202308/02, 11/18/2021, 07/31/2021, Additional history exists COLONOSCOPY-EVERY 5 YRS AGES 18-100 08/02/2023 08/02/2018, 08/02/2018, 08/25/2011 Diabetic Foot Exam 08/02/2023 08/02/2022, 0 07/21/2021, 10/05/2020, Additional history exists O2 ASSESSMENT COMPLETED IN PAST YEAR FOR COPD 03/16/2024 03/16/2023 DTaP,Tdap,and Td Vaccines (2 - Td or Tdap) 10/05/2024 10/05/2014, 03/02/2008 LUNG CANCER SCREENING - USE SMARTSET 21027 Completed 08/12/2019, 06/07/2019, 12/19/2018, Additional history exists [...] filedocumented as of this encounter Care Teams Lead Systems Analyst Relationship Specialty Start Date End Date Amparo Rich, DO [address] [place] [address] PCP - General Family Medicine 02/21/22 documented as of this encounter
--- OUTSIDE RECORDS SUMMARY | 2023-05-26 07:27 | External Medical Summary | Summary of Care ---
Author Name Unknown Organization [facility] Address [address] [place] [address] Phone [phone] Care Team Providers Care Apartment Rental Agent Name Role Phone Hilario Amparovilla Fuentes DO Primary Care Provider + [phone] Reason for Visit * Reason Comments Outpatient Testing Encounter Details Date Type Department Care Team Description 04/12/2023 Laboratory Laboratory, [place] [address] [place] [address] [place] [address] [place] [address] Chronic kidney disease, stage 3a ([facility]); Type 2 diabetes, HbA1C goal < 8% ([facility]); Hallucinations, unspecified Allergies Active Allergy Reactions Severity Noted Date [...] KITIndications:Type 2 diabetes, HbA1C goal < 8% ([facility]) Use 4 times a day to check blood sugar. 1 Kit 0 04/24/2019 Active Cyanocobalamin (B-12-SL) 1000 MCG SL TabletIndications:Lo w serum vitamin B12 Place ,000 mcg under the tongue daily. 90 Tab [...] pe 2 diabetes, HbA1C goal < 8% ([facility]) Test blood sugar 4 times a day 100 Strip 5 07/27/2021 Active BD Swab Single Use Regular Pad Use prior to testing 100 Each 5 07/27/2021 Active OneTouch Delica Lancets 33GIndications:Type 2 diabetes, HbA1C goal < 8% ([facility]) Use to test Blood 100 [...] s:Type 2 diabetes, HbA1C goal < 8% ([facility]),HTN, goal below 140/90 Take 1 [...] MG Sublingual Tablet Sublingual (Nitrostat)Indicatio ns:Atherosclerosis of [place] coronary artery of [place] heart with angina pectoris (HCC) Place 1 [...] Date Mitral valve insufficiency 03/16/2023 Atherosclerosis of [place] co ronary artery of [place] heart with angina pectoris 03/23/2022 Paroxysmal atrial [...] goal < 8% 014 Coronary atherosclerosis of [place] coron андрей artery 02/21/2012 S/P angioplasty with [...] episode, moder ate 03/23/2022 03/16/2023 Atherosclerosis of [place] co ronary artery of [place] heart with angina pectoris 09/07/2017 06/27/2018 Inflammation [...] on file documented as of this encounter Plan of Treatment Upcoming Encounters Date Type Specialty Care Team Description 04/19/2023 Office Visit Cardiology Enoch Che DO [address] [place] [address] 05/09/2023 Imaging Radiology 05/11/2023 Office Visit Family Medicine Amparo Rich DO [address] [place] [address] 10/24/2023 Office Visit Neurology Oc Owens, DO [address] [place] [address] Pending Results Name Type Priority Associated Diagnoses [...] Routine Hallucinations, unspecified 04/12/2023 1:10 PM EDT Scheduled Procedures Name Priority Associated Diagnoses Date/Ti me COLONOSCOPY FLEXIBLE PROXIMAL DIAGNOSTIC Recall Gastrointestinal hemorrhage with melena History of colon polyps ESOPHAGOGASTRODUODENOSCOPY ( EGD), FLEXIBLE, TRANSORAL, DIAGNOSTIC Recall Gastrointestinal hemorrhage with melena History of colon polyps Health Maintenance Due Date Last Done Comments Alpha-1 Antitrypsin 1958 CKD PHOS USE SMARTSET 87642 1958 Zoster Vaccines (2 of 3) 09/24/2012 [...] Additional history exists CKD HGB USE SMARTSET 14432 08/02/202308/02, 11/18/2021, 07/31/2021, Additional history exists COLONOSCOPY-EVERY 5 YRS AGES 18-100 08/02/2023 08/02/2018, 08/02/2018, 08/25/2011 Diabetic Foot Exam 08/02/2023 08/02/2022, 0 07/21/2021, 10/05/2020, Additional history exists O2 ASSESSMENT COMPLETED IN PAST YEAR FOR COPD 03/16/2024 03/16/2023 DTaP,Tdap,and Td Vaccines (2 - Td or Tdap) 10/05/2024 10/05/2014, 03/02/2008 LUNG CANCER SCREENING - USE SMARTSET 94686 Completed 08/12/2019, 06/07/2019, 12/19/2018, Additional history exists [...] Diagnoses Diagnosis Chronic kidney disease, stage 3a (HCC) Type 2 diabetes, HbA1C goal < 8% (HCC) Type II or unspecified type diabetes mellitus without mention of complication, not stated as uncontrolled Hallucinations, unspecified documented in this encounter Care Teams Apartment Rental Agent Relationship Specialty Start Date End Date Amparo Rich, DO [address], [place] [id number] PCP - General Family Medicine 02/21/22 documented as of this encounter
--- OUTSIDE RECORDS SUMMARY | 2023-05-26 07:27 | External Medical Summary | Summary of Care ---
Author Name Unknown Organization [facility] Address [address] [facility] [place] [address] Phone [phone] Care Team Providers Care Culinary Instructor Name Role Phone Amparo Rich DO Primary Care Provider + [phone] Reason for Visit * Reason Onset Date Comments Advice 04/03/2023 Encounter Details Date Type Department Care Team Description 04/03/2023 Telephone [place] [address] [place] [address] Amparo Rich DO [address] [place] [address] Advice Allergies Active Allergy Reactions Severity Noted Date Comments Bee Venom High 11/17/2011 Life threating reaction Morphine And Related 11/04/2002 vomitting with all types of pain meds documented as of this encounter (statuses as of 04/09/2023) Medications Medication Sig Dispensed Refills Start Date End Date Status EPIPEN 0.3 MG/0.3ML IJ DEVIIndications:Bee sting One injection into thigh as needed for severe allergic reaction 1 Device 5 10/08/2013 Active Blood Glucose Monitoring Suppl (ACCU-CHEK SOPHIA PLUS) w/Device KITIndications:Type 2 diabetes, HbA1C goal < 8% ([facility]) Use 4 times a day [...] hypoxemia,COPD, group B, by GOLD 2017 classification ([facility]) Use 2 L/min(Oxygen) as directed [...] pe 2 diabetes, HbA1C goal < 8% ([facility]) Test blood sugar 4 times a day 100 Strip 5 07/27/2021 Active BD Swab Single Use Regular Pad Use prior to testing 100 Each 07/27/2021 Active OneTouch Delica Lancets 33GIndications:Type 2 diabetes, HbA1C goal < 8% ([facility]) Use to test Blood 100 [...] MG Sublingual Tablet Sublingual (Nitrostat)Indicatio ns:Atherosclerosis of [place] coronary artery of [place] heart with angina pectoris (HCC) Place 1 [...] as of this encounter (statuses as of 04/09/2023) Active Problems Problem Noted Date Mitral valve insufficiency 03/16/2023 Atherosclerosis of [place] co ronary artery of [place] heart with angina pectoris 03/23/2022 Paroxysmal atrial [...] goal < 8% 014 Coronary atherosclerosis of [place] coron андрей artery 02/21/2012 S/P angioplasty with stent 02/21/2012 Overview: Diagnonal #1. [facility] 02/16/12 Mixed dyslipidemia 01/05/2012 Tobacco use disorder 01/05/2012 Major depressive disorder 01/10/2011 Overview: ICD-10 update of inactive term Thoracic and lumbosacral neuritis 2007 Lumbosacral spondylosis 08/05/2007 Spinal stenosis of lumbar region without neurogenic claudication 08/05/2007 HTN, goal below 140/90 documented as of this encounter (statuses as of 04/09/2023) Resolved Problems Problem Noted Date Resolved Date Major depressive disorder, single episode, moder ate 03/23/2022 03/16/2023 Atherosclerosis of [place] co ronary artery of [place] heart with angina pectoris 09/07/2017 06/27/2018 Inflammation [...] as of this encounter (statuses as of 04/09/2023) Immunizations Name Administration Dates Next Due COVID-19 [...] Telephone Encounter - Lynette Holm LPN - 04/09/2023 1:54 PM EDT See pt message encouter * Telephone Encounter - SAMIR Loya - 04/03/2023 11:35 AM EDT Spoke to pt daughter has some concerns about pt care, would like to speak to nurse, please advise, thanks documented in this encounter Plan of Treatment Upcoming Encounters Date Type Specialty Care Team Description 04/19/2023 Office Visit Cardiology Enoch Che, DO [address] [place] [address] Scheduled Procedures Name Priority Associated Diagnoses Date/Ti me COLONOSCOPY FLEXIBLE PROXIMAL DIAGNOSTIC Recall Gastrointestinal hemorrhage with melena History of colon polyps ESOPHAGOGASTRODUODENOSCOPY ( EGD), FLEXIBLE, TRANSORAL, DIAGNOSTIC Recall Gastrointestinal hemorrhage with melena History of colon polyps Health Maintenance Due Date Last Done Comments Alpha-1 Antitrypsin 1958 CKD PHOS USE SMARTSET 05551 1958 Zoster Vaccines (2 of 3) 09/24/2012 [...] Additional history exists CKD HGB USE SMARTSET 90169 08/02/202308/02, 11/18/2021, 07/31/2021, Additional history exists COLONOSCOPY-EVERY 5 YRS AGES 18-100 08/02/2023 08/02/2018, 08/02/2018, 08/25/2011 Diabetic Foot Exam 08/02/2023 08/02/2022, 0 07/21/2021, 10/05/2020, Additional history exists O2 ASSESSMENT COMPLETED IN PAST YEAR FOR COPD 03/16/2024 03/16/2023 DTaP,Tdap,and Td Vaccines (2 - Td or Tdap) 10/05/2024 10/05/2014, 03/02/2008 LUNG CANCER SCREENING - USE SMARTSET 13198 Completed 08/12/2019, 06/07/2019, 12/19/2018, Additional history exists [...] filedocumented as of this encounter Care Teams Culinary Instructor Relationship Specialty Start Date End Date Amparo Rich, [address] [place] [address] PCP - General Family Medicine 02/21/22 documented as of this encounter
--- OUTSIDE RECORDS SUMMARY | 2023-05-26 07:27 | External Medical Summary | Summary of Care ---
Author Name Unknown Organization [facility] Address [address] [place] [address] Phone [phone] Care Team Providers Care Typist Name Role Phone Amparo Rich DO Primary Care Provider [phone] Reason for Visit * Reason Onset Date Comments Advice 03/28/2023 Encounter Details Date Type Department Care Team Description 03/28/2023 Telephone [place] [address] [place] [address] Amparo Rich DO [address] [place] [address] Advice Allergies Active Allergy Reactions [...] Accu-Chek Sophia Plus In Vitro Strip (Glucose Blood)Indications:T ype 2 diabetes, HbA1C goal < 8% ([facility] [...] Active hydrOXYzine HCl 10 MG Oral Tablet (Atarax)Indications [...] MG Sublingual Tablet Sublingual (Nitrostat)Indicati ons:Atherosclerosis of [place] coronary artery of [place] heart with angina pectoris (HCC) Place 1 [...] Active traMADol HCl 50 MG Oral Tablet (Ultram)Indications [...] Active traZODone HCl 100 MG Oral Tablet (Desyrel)Indication [...] days. Until gone. 8 Tablet 0 03/19/2023 03/29/20 23 Discontinu ed(Refill) documented as of this encounter (statuses as of 03/29/2023) Active Problems Problem Noted Date Mitral valve insufficiency 03/16/2023 Atherosclerosis of [place] co ronary artery of [place] heart with angina pectoris 03/23/2022 Paroxysmal atrial [...] goal < 8% 014 Coronary atherosclerosis of [place] coron андрей artery 02/21/2012 S/P angioplasty with stent 02/21/2012 Overview: Diagnonal #1. [facility] 02/16/12 Mixed dyslipidemia 01/05/2012 Tobacco use [...] episode, moder ate 03/23/2022 03/16/2023 Atherosclerosis of [place] co ronary artery of [place] heart with angina pectoris 09/07/2017 06/27/2018 Inflammation [...] neuroimaging. * Telephone Encounter - PAPITO Kaplan - 03/29/2023 11:56 AM EDT Please see [...] [facility] [address] [facility] [id number] [facility]23 Office Visit Cardiology Enoch Che, DO [address] [place] [address] Scheduled Procedures Name Priority Associated Diagnoses Date/Ti me COLONOSCOPY FLEXIBLE PROXIMAL DIAGNOSTIC Recall Gastrointestinal hemorrhage with melena History of colon polyps ESOPHAGOGASTRODUODENOSCOPY ( EGD), FLEXIBLE, TRANSORAL, DIAGNOSTIC Recall Gastrointestinal hemorrhage with melena History of colon polyps Health Maintenance Due Date Last Done Comments Alpha-1 Antitrypsin 1958 CKD PHOS USE SMARTSET 64985 1958 Zoster Vaccines (2 of 3) 09/24/2012 [...] 05/29/2023 05/29/2022, , 03/09/2016 GFR 06/27/2023 12/25/2022, 0 01/2023, 11/18/2021, Additional history exists HbA1c 06/27/2023 12/25/2022, 02/0 01/2023, 11/18/2021, Additional history exists CKD HGB USE SMARTSET 32394 08/02/202308/02, 11/18/2021, 07/31/2021, Additional history exists COLONOSCOPY-EVERY 5 YRS AGES 18-100 08/02/2023 08/02/2018, 08/02/2018, 08/25/2011 Diabetic Foot Exam 08/02/2023 08/02/2022, 0 07/21/2021, 10/05/2020, Additional history exists O2 ASSESSMENT COMPLETED IN PAST YEAR FOR COPD 03/16/2024 03/16/2023 DTaP,Tdap,and Td Vaccines (2 - Td or Tdap) 10/05/2024 10/05/2014, 03/02/2008 LUNG CANCER SCREENING - USE SMARTSET 66595 Completed 08/12/2019, 06/07/2019, 12/19/2018, Additional history exists [...] filedocumented as of this encounter Care Teams Typist Relationship Specialty Start Date End Date Amparo Rich, [address] [place] [address] PCP - General Family Medicine 02/21/22 documented as of this encounter
--- OUTSIDE RECORDS SUMMARY | 2023-05-26 07:27 | External Medical Summary | Summary of Care ---
Author Name Unknown Organization [facility] Address [address] [facility] [place] [address] Phone [phone] Care Team Providers Care Bull Gang Supervisor Name Role Phone Amparo Rich DO Primary Care Provider + [phone] Reason for Referral * Evaluate & Treat - Unlimited Visits (Within 10 days (routine)) - Pending Review Specialty Diagnoses / Procedures Referred By Sheldon vega Referred To Contact Neurology Diagnoses Memory change Amparo Rich DO [address] [place] [address] Referral ID Status Reason Start Date Expiration Date Visits Requested Visits Authorized [id number] Pending Review Specialty Services Required 3 [phone] Question Answer Referral Priority Within 10 days (routine) Where should this appointment be scheduled? [facility] REFERRAL QUESTIONS Memory/Cognition * Precert (Within 10 days (routine)) - Pending Review Specialty Diagnoses / Procedures Referred By Sheldon vega Referred To Contact Radiology Diagnoses Hallucinations, unspecified Memory change Procedures MRI BRAIN WITHOUT CONTRAST Amparo Rich DO [address] [place] [address] Referral ID Status Reason Start Date Expiration Date V isits Requested Visits Authorized [id number] Pending Review 04/12/2023 999 999 Reason for Visit * Reason Comments Hospital Follow-Up Pt daughter states t hat she has some concerns about pt living by herself, confused Encounter Details Date Type Department Care Team Description 04/12/2023 Office Visit [facility] [place] [address] [facility] [address] Amparo Rich DO [address] [facility] [id number] Memory change*; Hallucinations, unspecified; Type 2 diabetes, HbA1C goal < 8% ([facility]); Atherosclerosis of [place] 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 angina pectoris; HTN, goal below 140/90; Paroxysmal atrial fibrillation ([facility]); Chronic kidney disease, stage 3a ([facility]) Allergies Active Allergy Reactions Severity [...] KITIndications:Type 2 diabetes, HbA1C goal < 8% ([facility]) Use 4 times a day [...] hypoxemia,COPD, group B, by GOLD 2017 classification ([facility]) Use 2 L/min(Oxygen) as directed [...] MG Sublingual Tablet Sublingual (Nitrostat)Indicati ons:Atherosclerosis of [place] coronary artery of [place] heart with angina pectoris (HCC) Place 1 [...] 30 Tablet 11 11/18/2021 04/12/20 23 Discontinu ed([facility]) hydrOXYzine HCl 10 MG Oral Tablet (Atarax)Indications :Anxiety TAKE 1 TABLET BY MOUTH TWICE A DAY NEEDED FOR ANXIETY 30 Tablet 0 12/09/2021 04/12/20 Discontinu ed([facility]) traMADol HCl 50 MG Oral Tablet (Ultram)Indications :Chronic pain syndrome,MEDICATION USE AGREEMENT Take 1 Tablet by mouth in the morning and 1 Tablet at noon and 1 Tablet before bedtime. 90 Tablet 0 12/20/2022 04/12/20 Discontinu ed([facility]) traZODone HCl 100 MG Oral Tablet (Desyrel)Indication s:Persistent insomnia Take 1 Tablet by mouth at bedtime. 90 Tablet 1 01/30/2023 04/12/20 Discontinu ed([facility]) documented as of this encounter (statuses as of 04/12/2023) Active Problems Problem Noted Date Mitral valve insufficiency 03/16/2023 Atherosclerosis of [place] co ronary artery of [place] heart with angina pectoris 03/23/2022 Paroxysmal atrial [...] goal < 8% 014 Coronary atherosclerosis of [place] coron андрей artery 02/21/2012 S/P angioplasty with [...] episode, moder ate 03/23/2022 03/16/2023 Atherosclerosis of [place] co ronary artery of [place] heart with angina pectoris 09/07/2017 06/27/2018 Inflammation [...] of confusion. Since she was dced from [facility]. It appears the only medication changes were [...] Tobacco use disorder F17.200 Coronary atherosclerosis of [place] coronary artery I25.10 S/P angioplasty with stent Z95.820 Type 2 diabetes, HbA1C goal < 8% ([facility]) E11.9 Diabetic polyneuropathy associated with type 2 diabetes mellitus ([facility]) E11.42 Nocturnal hypoxemia G47.34 Centrilobular emphysema ([facility]) J43.2 Major depressive disorder, recurrent, unspecified ([facility]) F33.9 COPD, group B, by GOLD 2017 classification ([facility]) J44.9 Low serum vitamin B12 E53.8 Chronic kidney disease, stage 3a ([facility]) N18.31 Paroxysmal atrial fibrillation ([facility]) I48.0 Atherosclerosis of [place] coronary artery of [place] heart with angina pectoris ([facility]) I25.119 Mitral valve insufficiency I34.0 [...] BY MOUTH TWICE A DAY NEEDED FOR [id number] Tablet 0 Fluconazole 150 MG Oral Tablet [...] Type 2 diabetes, HbA1C goal < 8% ([facility]) - HEMOGLOBIN A1C; Future; Expected date: 04/12/2023 Atherosclerosis of [place] 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 angina pectoris HTN, goal below [...] Cardiology Enoch Che, DO [address] [place] [address] 05/09/2023 Imaging Radiology 05/11/2023 Office Visit Family Medicine Amparo Rich, DO [address] [place], [place] [id number] 10/24/2023 Office Visit Neurology Oc Owens, DO [address] [place] [address] Pending Results Name Type Priority Associated Diagnoses [...] Alpha-1 Antitrypsin 1958 CKD PHOS USE SMARTSET 83065 1958 Zoster Vaccines (2 of 3) 09/24/2012 [...] Additional history exists CKD HGB USE SMARTSET 69790 08/02/202308/02, 11/18/2021, 07/31/2021, Additional history exists COLONOSCOPY-EVERY 5 YRS AGES 18-100 08/02/2023 08/02/2018, 08/02/2018, 08/25/2011 Diabetic Foot Exam 08/02/2023 08/02/2022, 0 07/21/2021, 10/05/2020, Additional history exists O2 ASSESSMENT COMPLETED IN PAST YEAR FOR COPD 03/16/2024 03/16/2023 DTaP,Tdap,and Td Vaccines (2 - Td or Tdap) 10/05/2024 10/05/2014, 03/02/2008 LUNG CANCER SCREENING - USE SMARTSET 80221 Completed 08/12/2019, 06/07/2019, 12/19/2018, Additional history exists [...] Negative Ketone, Urine Negative Negative mg/dL Specific [place], Urine 1.010 1.003 - 1.030 Blood, Urine Negative Negative pH, Urine 5.5 5.0 - 7.5 units Protein, Urine Negative Negative mg/dL Urobilinogen, Urine 0.2 0.2 - 1.0 mg/dL Nitrite, Urine Negative Negative Esterase, Urine Negative Negative Urine 04/12/2023 2:29 PM EDT Amparo Rich DO LAB POINT OF CARE [facility]/EDIT ORDERABLES documented in this encounter Visit Diagnoses Diagnosis Memory change- Primary Memory loss Hallucinations, unspecified Type 2 diabetes, HbA1C goal < 8% (HCC) Type II or unspecified type diabetes mellitus without mention of complication, not stated as uncontrolled Atherosclerosis of [place] 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 angina pectoris HTN, goal below 140/90 Unspecified essential hypertension Paroxysmal atrial fibrillation (HCC) Atrial fibrillation Chronic kidney disease, stage 3a (HCC) documented in this encounter Care Teams Bull Gang Supervisor Relationship Specialty Start Date End Date Amparo Rich DO [address] [place] [address] PCP - General Family Medicine 02/21/22 documented as of this encounter
--- OUTSIDE RECORDS SUMMARY | 2023-05-26 07:27 | External Medical Summary ---
Author Name Unknown Address Unknown Organization K01:[facility] [facility] [address] [place] [address] Laboratory Report Ordering Provider Test Date Status BIANKA PEÑA 04/12/2023 13:10:16 Final Observation Date Value Abnormality Reference (Units ) Status WBC, Total 04/12/2023 13:10:16 10.14 4.00-10.80 (K/uL) Final RBC 04/12/2023 13:10:16 5.85 3.85-5.15 (M/uL) Final Hemoglobin 04/12/2023 13:10:16 16.0 Above high normal 12.0-15.3 (g/dL) Final HCT 04/12/2023 13:10:16 51.5 Above high normal 36.0-45.2 (%) Final MCV 04/12/2023 13:10:16 88.0 81.5-97.5 (fL) Final MCH 04/12/2023 13:10:16 27.4 27.0-34.0 (pg) Final MCHC 04/12/2023 13:10:16 31.1 32.0-36.0 (g/dL) Final RDW 04/12/2023 13:10:16 14.6 11.5-15.5 (%) Final Platelets 04/12/2023 13:10:16 272 140-400 (K/uL) Final MPV 04/12/2023 13:10:16 10.8 6.6-11.1 (fL) Final Nucleated erythrocytes/100 leukocytes [Ratio] in Blood by Automated count 04/12/2023 13:10:16 0 <=0 (/100 WBCs) Final Performing Location [facility] [place] [facility] [place] [address]
--- OUTSIDE RECORDS SUMMARY | 2023-05-26 07:27 | External Medical Summary ---
Author Name Unknown Address Unknown Organization K01:[facility] [place] [address] [place] [address] Laboratory Report Ordering Provider Test Date Status BIANKA PEÑA 04/12/2023 13:10:16 Final Observation Date Value Abnormality Reference (Units ) Status HbA1C 04/12/2023 13:10:16 8.0 Above high normal 4. 0-5.6 (%) Final The use of HbA1c to monitor glycemic status is based on normal hemoglobin and HbA composition. This test should not be used in patients with abnormal hemoglobin that affects the half life of the red blood cell or the in vivo glycation rates. Glucose, estimated average 04/12/2023 13:10:16 183 Above high normal <126 (mg/dL) Zion bush Performing Location [facility] [place] [address] [place] [address]
--- OUTSIDE RECORDS SUMMARY | 2023-05-26 07:27 | External Medical Summary | Summary of Care ---
Author Name Unknown Organization [facility] Address [address] [facility] [place] [address] Phone [phone] Care Team Providers Care Skin Care Therapist Name Role Phone Amparo Rich DO Primary Care Provider Reason for Visit * Reason Onset Date Comments transfer of records 03/29/2023 ABDIAZIZ for Angel Hernandez Encounter Details Date Type Department Care Team Description 03/29/2023 Telephone [place] [address] [place] [address] Amparo Rich DO [address] [place] [address] transfer of records (ABDIAZIZ for Angel Hernandez ) Allergies Active Allergy Reactions Severity Noted Date [...] KITIndications:Type 2 diabetes, HbA1C goal < 8% ([facility] [...] hypoxemia,COPD, group B, by GOLD 2017 classification ([facility]) Use 2 L/min(Oxygen) as directed continuous. concentrated and home fill with portability 1 Each 0 01/21/2021 Active Additional Information Patient not taking.Reported on 01/31/2023 Premarin 0.625 MG/GM Vaginal Cream (Estrogens, Conjugated)Indicatio ns:Postmenopausal atrophic vaginitis Administer into the vagina 0.5 g before bedtime. As directed.. 42.5 g 07/21/2021 Active Additional Information Patient not taking.Reported on 03/16/2023 Accu-Chek Sophia Plus In Vitro Strip (Glucose Blood)Indications:Ty pe 2 diabetes, HbA1C goal < 8% ([facility]) Test blood sugar 4 times a day 100 Strip 07/27/2021 Active BD Swab Single Use Regular Pad Use prior to testing 100 Each 07/27/2021 Active OneTouch Delica Lancets 33GIndications:Type 2 diabetes, HbA1C goal < 8% ([place] [...] MG Sublingual Tablet Sublingual (Nitrostat)Indicatio ns:Atherosclerosis of [place] coronary artery of [place] heart with angina pectoris (HCC) Place 1 [...] Date Mitral valve insufficiency 03/16/2023 Atherosclerosis of [place] co ronary artery of [place] heart with angina pectoris 03/23/2022 Paroxysmal atrial [...] goal < 8% 014 Coronary atherosclerosis of [place] coron андрей artery 02/21/2012 S/P angioplasty with stent 02/21/2012 Overview: Diagnonal #1. [facility] 02/16/12 Mixed dyslipidemia 01/05/2012 Tobacco [...] episode, moder ate 03/23/2022 03/16/2023 Atherosclerosis of [place] co ronary artery of [place] heart with angina pectoris 09/07/2017 06/27/2018 Inflammation [...] Miscellaneous Notes * Telephone Encounter - SAMIR Ortiz - 03/29/2023 2:37 PM EDT Patient signs a ABDIAZIZ for her son David to be able to exchange/give information for medical and billing purposes and to make appointments. Sent to [facility] for record. documented in this encounter Plan of Treatment Upcoming Encounters Date Type Specialty Care Team Description 04/12/2023 Office Visit Family Medicine Amparo Rich, DO [address] [facility] [address] 04/19/2023 Office Visit Cardiology Enoch Che, DO [address] [place] [address] Scheduled Procedures Name Priority Associated Diagnoses Date/Ti me COLONOSCOPY FLEXIBLE PROXIMAL DIAGNOSTIC Recall Gastrointestinal hemorrhage with melena History of colon polyps ESOPHAGOGASTRODUODENOSCOPY ( EGD), FLEXIBLE, TRANSORAL, DIAGNOSTIC Recall Gastrointestinal hemorrhage with melena History of colon polyps Health Maintenance Due Date Last Done Comments Alpha-1 Antitrypsin 1958 CKD PHOS USE SMARTSET 77655 1958 Zoster Vaccines (2 of 3) 09/24/2012 [...] Additional history exists CKD HGB USE SMARTSET 02940 08/02/202308/02, 11/18/2021, 07/31/2021, Additional history exists COLONOSCOPY-EVERY 5 YRS AGES 18-100 08/02/2023 08/02/2018, 08/02/2018, 08/25/2011 Diabetic Foot Exam 08/02/2023 08/02/2022, 0 07/21/2021, 10/05/2020, Additional history exists O2 ASSESSMENT COMPLETED IN PAST YEAR FOR COPD 03/16/2024 03/16/2023 DTaP,Tdap,and Td Vaccines (2 - Td or Tdap) 10/05/2024 10/05/2014, 03/02/2008 LUNG CANCER SCREENING - USE SMARTSET 01628 Completed 08/12/2019, 06/07/2019, 12/19/2018, Additional history exists [...] filedocumented as of this encounter Care Teams Skin Care Therapist Relationship Specialty Start Date End Date Amparo Rich, [address] [place] [address] PCP - General Family Medicine 02/21/22 documented as of this encounter
--- OUTSIDE RECORDS SUMMARY | 2023-05-26 07:28 | External Medical Summary | Summary of Care ---
Author Name Unknown Organization [facility] Address [address] [place] [address] Phone [phone] Care Team Providers Care Sterilizer Operator Name Role Phone Amparo Rich DO Primary Care Provider [phone] Reason for Visit * Reason Onset Date Comments Advice 03/19/2023 Encounter Details Date Type Department Care Team Description 03/19/2023 Telephone [place] [address] [place] [address] Amparo Rich DO [address] [place] [address] Advice Allergies Active Allergy Reactions Severity Noted Date Comments Bee Venom High 11/17/2011 Life threating reaction Morphine And Related 11/04/2002 vomitting with all types of pain meds documented as of this encounter (statuses as of 03/23/2023) Medications Medication Sig Dispensed Refills Start Date [...] MG Sublingual Tablet Sublingual (Nitrostat)Indicatio ns:Atherosclerosis of [place] coronary artery of [place] heart with angina pectoris (HCC) Place 1 [...] Until gone. 8 Tablet 0 03/19/2023 3 Active documented as of this encounter (statuses as of 03/23/2023) Active Problems Problem Noted Date Mitral valve insufficiency 03/16/2023 Atherosclerosis of [place] co ronary artery of [place] heart with angina pectoris 03/23/2022 Paroxysmal atrial [...] goal < 8% 014 Coronary atherosclerosis of [place] coron андрей artery 02/21/2012 S/P angioplasty with stent 02/21/2012 Overview: Diagnonal #1. [facility] 02/16/12 Mixed dyslipidemia 01/05/2012 Tobacco use disorder 01/05/2012 Major depressive disorder 01/10/2011 Overview: ICD-10 update of inactive term Thoracic and lumbosacral neuritis 2007 Lumbosacral spondylosis 08/05/2007 Spinal stenosis of lumbar region without neurogenic claudication 08/05/2007 HTN, goal below 140/90 documented as of this encounter (statuses as of 03/23/2023) Resolved Problems Problem Noted Date Resolved Date Major depressive disorder, single episode, moder ate 03/23/2022 03/16/2023 Atherosclerosis of [place] co ronary artery of [place] heart with angina pectoris 09/07/2017 06/27/2018 Inflammation [...] as of this encounter (statuses as of 03/23/2023) Immunizations Name Administration Dates Next Due COVID-19 [...] Miscellaneous Notes * Telephone Encounter - SAMIR Michel - 03/23/2023 12:31 PM EDT Reason for patient's call: Ashvin Baker Caller was transferred to [facility] at the nurse line. * Telephone Encounter - Shasta Alicea LPN - 03/22/2023 4:24 PM EDT Called patient's son for street address, it [address] [place] [address], called [facility] with updated information * Telephone Encounter - SAMIR Ryan - 03/22/2023 10:14 AM EDT Rebecca from [facility] needs the patient's street address before they can determine if they can provide service. Please return call to [phone] * Telephone Encounter - SAMIR Chapman - 03/21/2023 1:05 PM EDT What is the reason for call? Patient's son, Ashvin calling for a status upon on [place] [employer] for Home Health on his mom. States that he and his sisters have been calling to get this set-up.States that PCP office stated they would assist with this process. Please call patient's son back to advise. Return Phone #: [phone] * Telephone Encounter - SAMIR Sagastume - 03/20/2023 2:32 PM EDT Patient calling in to check on the status of previous message. Patient Called within 48 hour timeframe. Reminded patient of 48 hour turn-around time. * Telephone Encounter - SAMIR Bill - 03/19/2023 4:06 PM EDT Sharmin From [facility] calling to obtain pt's actual address. They are unable to assist with home health at a [address] address. Please call to advise. documented in this encounter Plan of Treatment Upcoming Encounters Date Type Specialty Care Team Description 04/12/2023 Office Visit Family Medicine Amparo Rich, DO [address] [facility] [address] 04/19/2023 Office Visit Cardiology Enoch Che, DO [address] [place] [address] Scheduled Procedures Name Priority Associated Diagnoses Date/Ti me COLONOSCOPY FLEXIBLE PROXIMAL DIAGNOSTIC Recall Gastrointestinal hemorrhage with melena History of colon polyps ESOPHAGOGASTRODUODENOSCOPY ( EGD), FLEXIBLE, TRANSORAL, DIAGNOSTIC Recall Gastrointestinal hemorrhage with melena History of colon polyps Health Maintenance Due Date Last Done Comments Alpha-1 Antitrypsin 1958 CKD PHOS USE SMARTSET 30153 1958 Zoster Vaccines (2 of 3) 09/24/2012 07/30/2012 DISCUSS TOBACCO CESSATION (REFER TO SMARTSET #3291) 06/01/2016 06/01/2015 (Discussed) DXA Scan 07/18/2018 07/18/2011, 07/18/2011 *COPD SEVERITY VERIFIED BY PFT 02/01/2019 COVID-19 Vaccine (3 - Moderna series) 01/11/2021 11/16/2020, 10/19/2020 Albumin/Creatinine Ratio 11/18/2022 022, 08/24/2017, 10/30/2016, Additional history exists Depression Screening 11/18/2022 11/18/2021 Influenza Vaccine (FLU shot) (#1) 2023 03/23/2022, 02/24/2021, 03/02/2020, Additional history exists DIABETES-EYE EXAM 05/29/2023 05/29/2022, , 03/09/2016 GFR 06/27/2023 12/25/2022, 0 01/2023, 11/18/2021, Additional history exists HbA1c 06/27/2023 12/25/2022, 0 01/2023, 11/18/2021, Additional history exists CKD HGB USE SMARTSET 80672 08/02/202308/02, 11/18/2021, 07/31/2021, Additional history exists COLONOSCOPY-EVERY 5 YRS AGES 18-100 08/02/2023 08/02/2018, 08/02/2018, 08/25/2011 Diabetic Foot Exam 08/02/2023 08/02/2022, 0 07/21/2021, 10/05/2020, Additional history exists O2 ASSESSMENT COMPLETED IN PAST YEAR FOR COPD 03/16/2024 03/16/2023 DTaP,Tdap,and Td Vaccines (2 - Td or Tdap) 10/05/2024 10/05/2014, 03/02/2008 LUNG CANCER SCREENING - USE SMARTSET 59944 Completed 08/12/2019, 06/07/2019, 12/19/2018, Additional history exists [...] filedocumented as of this encounter Care Teams Sterilizer Operator Relationship Specialty Start Date End Date Amparo Rich, DO [address] [place] [address] PCP - General Family Medicine 02/21/22 documented as of this encounter
--- OUTSIDE RECORDS SUMMARY | 2023-05-26 07:28 | External Medical Summary | Summary of Care ---
Author Name Unknown Organization [facility] Address [address] [place] [address] Phone [phone] Care Team Providers Care Pocket Setter Name Role Phone Amparo Rich DO Primary Care Provider [phone] Reason for Visit * Reason Onset Date Comments Advice 03/19/2023 Encounter Details Date Type Department Care Team Description 03/19/2023 Telephone [place] [address] [place] [address] Amparo Rich DO [address] [place] [address] Advice Allergies Active Allergy Reactions [...] KITIndications:Type 2 diabetes, HbA1C goal < 8% ([facility]) Use 4 times a day [...] hypoxemia,COPD, group B, by GOLD 2017 classification ([facility]) Use 2 L/min(Oxygen) as directed [...] pe 2 diabetes, HbA1C goal < 8% ([facility]) Test blood sugar 4 times a day 100 Strip 07/27/2021 Active BD Swab Single Use Regular Pad Use prior to testing 100 Each 07/27/2021 Active OneTouch Delica Lancets 33GIndications:Type 2 diabetes, HbA1C goal < 8% ([facility]) Use to test Blood 100 [...] MG Sublingual Tablet Sublingual (Nitrostat)Indicatio ns:Atherosclerosis of [place] coronary artery of [place] heart with angina pectoris (HCC) Place [...] Date Mitral valve insufficiency 03/16/2023 Atherosclerosis of [place] co ronary artery of [place] heart with angina pectoris 03/23/2022 Paroxysmal [...] goal < 8% 014 Coronary atherosclerosis of [place] coron андрей artery 02/21/2012 S/P angioplasty with [...] episode, moder ate 03/23/2022 03/16/2023 Atherosclerosis of [place] co ronary artery of [place] heart with angina pectoris 09/07/2017 06/27/2018 Inflammation [...] encounter Miscellaneous Notes * Telephone Encounter - Wendy Clayton LPN - 03/23/2023 12:34 PM EDT Provider to address: dementia Reason for Call: Advice Contact: Telephone Call Contact Type: Information Outcome: sonAshvin is calling. Spoke to his mom last night and said she was talking to his sisterand her child. He called his sister and she was at home. Nobody was with her at that time. This morning he called her and she said she couldn't find Desmond. That was his Dad. He has been gone for 2 years now. She needs checked for dementia. Said she is taking her pills, but they are still in the box.He checks on her because he is the closest. She needs help. He said she had some confusion before going into the hospital, but is much worse since coming out. He thinks a lot of it is not taking her medication. Can call the son or his sisters back with advice. Total Time including non face to face (minutes): 15 * Telephone Encounter - SAMIR Michel - 03/23/2023 12:31 PM EDT Reason for patient's call: Ashvin Baker Caller was transferred to [place] at the nurse line. * Telephone Encounter - Shasta Alicea LPN - 03/22/2023 4:24 PM EDT Called patient's son for street address, it [address] [place] [address], called [facility] with updated information * Telephone Encounter - SAMIR Ryan - 03/22/2023 10:14 AM EDT Rebecca from [facility] needs the patient's street address before they can determine if they can provide service. Please return call to [phone] * Telephone Encounter - SAMIR Chapman - 03/21/2023 1:05 PM EDT What is the reason for call? Patient's son, Ashvin calling for a status upon on [place] [facility] on his mom. States that he and his sisters have been calling to get this set-up.States that PCP office stated they would assist with this process. Please call patient's son back to advise. Return Phone #: [phone] * Telephone Encounter - SAMIR Sagastume - 03/20/2023 2:32 PM EDT Patient calling in to check on the status of previous message. Patient Called within 48 hour timeframe. Reminded patient of 48 hour turn-around time. * Telephone Encounter - SAMIR Bill - 03/19/2023 4:06 PM EDT Sharmin From [facility] calling to obtain pt's actual address. They are unable to assist with home health at a [address] address. Please call to advise. documented in this encounter Plan of Treatment Upcoming Encounters Date Type Specialty Care Team Description 04/12/2023 Office Visit Family Medicine Amparo Rich, DO [address] [place] [address] 04/19/2023 Office Visit Cardiology Enoch Che, DO [address] [place] [address] Scheduled Procedures Name Priority Associated Diagnoses Date/Ti me COLONOSCOPY FLEXIBLE PROXIMAL DIAGNOSTIC Recall Gastrointestinal hemorrhage with melena History of colon polyps ESOPHAGOGASTRODUODENOSCOPY ( EGD), FLEXIBLE, TRANSORAL, DIAGNOSTIC Recall Gastrointestinal hemorrhage with melena History of colon polyps Health Maintenance Due Date Last Done Comments Alpha-1 Antitrypsin 1958 CKD PHOS USE SMARTSET 31823 1960 Zoster Vaccines (2 of 3) 09/24/2012 [...] Additional history exists CKD HGB USE SMARTSET 81045 08/02/202308/02, 11/18/2021, 07/31/2021, Additional history exists COLONOSCOPY-EVERY 5 YRS AGES 18-100 08/02/2023 08/02/2018, 08/02/2018, 08/25/2011 Diabetic Foot Exam 08/02/2023 08/02/2022, 0 07/21/2021, 10/05/2020, Additional history exists O2 ASSESSMENT COMPLETED IN PAST YEAR FOR COPD 03/16/2024 03/16/2023 DTaP,Tdap,and Td Vaccines (2 - Td or Tdap) 10/05/2024 10/05/2014, 03/02/2008 LUNG CANCER SCREENING - USE SMARTSET 86394 Completed 08/12/2019, 06/07/2019, 12/19/2018, Additional history exists [...] filedocumented as of this encounter Care Teams Pocket Setter Relationship Specialty Start Date End Date Amparo Rich, [address] [place] [address] PCP - General Family Medicine 02/21/22 documented as of this encounter
--- OUTSIDE RECORDS SUMMARY | 2023-05-26 07:28 | External Medical Summary | Summary of Care ---
Author Name Unknown Organization [facility] Address [address] [place] [address] Phone [phone] Care Team Providers Care Take Down Inspector Name Role Phone Amparo Rich DO Primary Care Provider [phone] Reason for Visit * Reason Onset Date Comments Advice 03/19/2023 Encounter Details Date Type Department Care Team Description 03/19/2023 Telephone [place] [address] [place] [address] Amparo Rich DO [address] [place] [address] Advice Allergies Active Allergy Reactions [...] 2 diabetes, HbA1C goal < 8% ([facility]) Use 4 times a day [...] group B, by GOLD 2017 classification ([facility]) Use 2 L/min(Oxygen) as directed [...] 2 diabetes, HbA1C goal < 8% ([facility]) Test blood sugar 4 times a day 100 Strip 07/27/2021 Active BD Swab Single Use Regular Pad Use prior to testing 100 Each 07/27/2021 Active OneTouch Delica Lancets 33GIndications:Type 2 diabetes, HbA1C goal < 8% ([facility]) Use to test Blood 100 [...] goal < 8% 014 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 [facility] 02/16/12 Mixed dyslipidemia 01/05/2012 Tobacco use [...] episode, moder ate 03/23/2022 03/16/2023 Atherosclerosis of [place] co ronary artery of [place] heart with angina pectoris 09/07/2017 06/27/2018 Inflammation [...] Ashvin Baker Caller was transferred to [facility] at the nurse line. * Telephone Encounter - Shasta Alicea LPN - 03/22/2023 4:24 PM EDT Called patient's son for street address, it [address] [place] [address], called [facility] with updated information * Telephone Encounter - SAMIR Ryan - 03/22/2023 10:14 AM EDT Rebecca from [facility] needs the patient's street address before they can determine if they can provide service. Please return call to [phone] address. * Telephone Encounter - SAMIR Chapman - 03/21/2023 1:05 PM EDT What is the reason for call? Patient's son, Ashvin calling for a status upon on [place] [facility] on his mom. States that he and his sisters have been calling to get this set-up.States that PCP office stated they would assist with this process. Please call patient's son back to advise. Return Phone #: [phone] * Telephone Encounter - SAMIR Sagastume - [...] Family Medicine Amparo Rich, DO [address] [facility] [address] 04/19/2023 Office Visit Cardiology Enoch Che, DO [address] [place] [address] Scheduled Procedures Name Priority Associated Diagnoses Date/Ti me COLONOSCOPY FLEXIBLE PROXIMAL DIAGNOSTIC Recall Gastrointestinal hemorrhage with melena History of colon polyps ESOPHAGOGASTRODUODENOSCOPY ( EGD), FLEXIBLE, TRANSORAL, DIAGNOSTIC Recall Gastrointestinal hemorrhage with melena History of colon polyps Health Maintenance Due Date Last Done Comments Alpha-1 Antitrypsin 1958 CKD PHOS USE SMARTSET 17157 1960 Zoster Vaccines (2 of 3) 09/24/2012 [...] Additional history exists CKD HGB USE SMARTSET 77053 08/02/202308/02, 11/18/2021, 07/31/2021, Additional history exists COLONOSCOPY-EVERY 5 YRS AGES 18-100 08/02/2023 08/02/2018, 08/02/2018, 08/25/2011 Diabetic Foot Exam 08/02/2023 08/02/2022, 0 07/21/2021, 10/05/2020, Additional history exists O2 ASSESSMENT COMPLETED IN PAST YEAR FOR COPD 03/16/2024 03/16/2023 DTaP,Tdap,and Td Vaccines (2 - Td or Tdap) 10/05/2024 10/05/2014, 03/02/2008 LUNG CANCER SCREENING - USE SMARTSET 51901 Completed 08/12/2019, 06/07/2019, 12/19/2018, Additional history exists [...] filedocumented as of this encounter Care Teams Take Down Inspector Relationship Specialty Start Date End Date Amparo Rich, DO [address] [place] [address] PCP - General Family Medicine 02/21/22 documented as of this encounter
--- OUTSIDE RECORDS SUMMARY | 2023-05-26 07:28 | External Medical Summary | Summary of Care ---
Author Name Unknown Organization [facility] Address [address] [place] [address] Phone [phone] Care Team Providers Care Mig Welder Name Role Phone HarrisbluAmparo hernandez Primary Care Provider [phone] Reason for Visit * Reason Onset Date Comments After Hours Call 03/23/2023 Encounter Details Date Type Department Care Team Description 03/23/[address] [address] Lucy Youssef MD [address] [place] [address] [place] [address] After Hours Call Allergies Active Allergy Reactions Severity Noted Date [...] diabetes, HbA1C goal < 8% ([facility]) Use 4 times a day [...] B, by GOLD 2017 classification ([facility]) Use 2 L/min(Oxygen) as directed [...] diabetes, HbA1C goal < 8% ([facility]) Test blood sugar 4 times a day 100 Strip 07/27/2021 Active BD Swab Single Use Regular Pad Use prior to testing 100 Each 07/27/2021 Active OneTouch Delica Lancets 33GIndications:Type 2 diabetes, HbA1C goal < 8% ([facility]) Use to test Blood 100 [...] MG Sublingual Tablet Sublingual (Nitrostat)Indicatio ns:Atherosclerosis of [place] coronary artery of [place] heart with angina pectoris (HCC) Place 1 [...] Date Mitral valve insufficiency 03/16/2023 Atherosclerosis of [place] co ronary artery of [place] heart with angina pectoris 03/23/2022 Paroxysmal atrial [...] goal < 8% 014 Coronary atherosclerosis of [place] coron андрей artery 02/21/2012 S/P angioplasty with stent 02/21/2012 Overview: Diagnonal #1. [facility] 02/16/12 Mixed dyslipidemia 01/05/2012 Tobacco use [...] episode, moder ate 03/23/2022 03/16/2023 Atherosclerosis of [place] co ronary artery of [place] heart with angina pectoris 09/07/2017 06/27/2018 Inflammation [...] on file documented as of this encounter Progress Notes * Lucy Gordon MD - 03/23/2023 7:41 PM EDT After hours call. I was paged by [facility] home health nursing. She had just done a home visit with thispatient and found several medications were missing from the patient home. Specifically she is missing metformin lisinopril hydroxyzine and gabapentin. She was concerned the patient has not been taking these medications and had been using other medications that she shouldnt have been on for example medications. She threw those bryanna y. Patients blood pressure today was 90/60 and home health was not able to check her blood sugar but patient was feeling okay. Chart reviewed last hemoglobin A1c was 8.0 in December. Last GFR was 50. Will forward this note to her PCP to determine appropriateness of renewing these medications home health will check on her again on Sunday or Sunday. documented in this encounter Miscellaneous Notes * Telephone Encounter - Shasta Alicea LPN - 03/29/2023 1:07 PM EDT Spoke to patient's son, verbalized understanding * Telephone Encounter - Lynette Holm LPN - 03/28/2023 10:42 AM EDT Left message for pt's son, Ashvin to call back Attempted to call pt's daughter, Marsha. Home number will not go through & mobile number is no longer correct Please also see TE's from 03/16 & 03/19 * Telephone Encounter - Amparo Rich DO - 03/28/2023 8:50 AM EDT I was suppose to see her today, but I am not in office due to a sick child at home, but I will see her on , please have her bring all medications in their bottles that she is currently taking so we can assess which medications she needs and or does not. * Telephone Encounter - Lucy Gordon MD - 03/24/2023 8:09 AM EDT After hours call. I was paged by [facility] home health nursing. She had just done a home visit with thispatient and found several medications were missing from the patient home. Specifically she is missing metformin lisinopril hydroxyzine and gabapentin. She was concerned the patient has not been taking these medications and had been using other medications that she shouldnt have been on for example medications. She threw those bryanna y. Patients blood pressure today was 90/60 and home health was not able to check her blood sugar but patient was feeling okay. Note patient did take two different prescriptions for metoprolol today, and the metop tartrate was discontinued. Chart reviewed last hemoglobin A1c was 8.0 in December. Last GFR was 50. Will forward this note to her PCP to determine appropriateness of renewing these medications home health will check on her again on Sunday or Sunday. documented in this encounter Plan of Treatment Upcoming Encounters Date Type Specialty Care Team Description 04/12/2023 Office Visit [facility] [address] [facility] [address] 04/19/2023 Office Visit Cardiology Enoch Che DO [address] [place] [address] Scheduled Procedures Name Priority Associated Diagnoses Date/Ti me COLONOSCOPY FLEXIBLE PROXIMAL DIAGNOSTIC Recall Gastrointestinal hemorrhage with melena History of colon polyps ESOPHAGOGASTRODUODENOSCOPY ( EGD), FLEXIBLE, TRANSORAL, DIAGNOSTIC Recall Gastrointestinal hemorrhage with melena History of colon polyps Health Maintenance Due Date Last Done Comments Alpha-1 Antitrypsin 1958 CKD PHOS USE SMARTSET 79165 1958 Zoster Vaccines (2 of 3) 09/24/2012 07/30/2012 DISCUSS TOBACCO CESSATION (REFER TO SMARTSET #6065) 06/01/2016 06/01/2015 (Discussed) DXA Scan 07/18/2018 07/18/2011, [...] Additional history exists CKD HGB USE SMARTSET 29872 08/02/202308/02, 11/18/2021, 07/31/2021, Additional history exists COLONOSCOPY-EVERY 5 YRS AGES 18-100 08/02/2023 08/02/2018, 08/02/2018, 08/25/2011 Diabetic Foot Exam 08/02/2023 08/02/2022, 0 07/21/2021, 10/05/2020, Additional history exists O2 ASSESSMENT COMPLETED IN PAST YEAR FOR COPD 03/16/2024 03/16/2023 DTaP,Tdap,and Td Vaccines (2 - Td or Tdap) 10/05/2024 10/05/2014, 03/02/2008 LUNG CANCER SCREENING - USE SMARTSET 38634 Completed 08/12/2019, 06/07/2019, 12/19/2018, Additional history exists [...] filedocumented as of this encounter Care Teams Mig Welder Relationship Specialty Start Date End Date Amparo Rich, DO [address] [place] [address] PCP - General Family Medicine 02/21/22 documented as of this encounter
--- OUTSIDE RECORDS SUMMARY | 2023-05-26 07:28 | External Medical Summary | Summary of Care ---
Author Name Unknown Organization [facility] Address [address] [place] [address] Phone [phone] Care Team Providers Care Horticultural Specialty Grower Field Name Role Phone HarrisbluAmparo hernandez Primary Care Provider [phone] Reason for Visit * Reason Onset Date Comments After Hours Call 03/23/2023 Encounter Details Date Type Department Care Team Description 03/23/[address] [address] Lucy Youssef MD [address] [place] [address] [place] [address] After Hours Call Allergies Active Allergy Reactions Severity Noted Date Comments Bee Venom High 11/17/2011 Life threating reaction Morphine And Related 11/04/2002 vomitting with all types of pain meds documented as of this encounter (statuses as of 03/28/2023) Medications Medication Sig Dispensed Refills Start Date [...] MG Sublingual Tablet Sublingual (Nitrostat)Indicatio ns:Atherosclerosis of [place] coronary artery of [place] heart with angina pectoris (HCC) Place 1 [...] as of this encounter (statuses as of 03/28/2023) Active Problems Problem Noted Date Mitral valve insufficiency 03/16/2023 Atherosclerosis of [place] co ronary artery of [place] heart with angina pectoris 03/23/2022 Paroxysmal atrial [...] goal < 8% 014 Coronary atherosclerosis of [place] coron андрей artery 02/21/2012 S/P angioplasty with stent 02/21/2012 Overview: Diagnonal #1. [facility] 02/16/12 Mixed dyslipidemia 01/05/2012 Tobacco use disorder 01/05/2012 Major depressive disorder 01/10/2011 Overview: ICD-10 update of inactive term Thoracic and lumbosacral neuritis 2007 Lumbosacral spondylosis 08/05/2007 Spinal stenosis of lumbar region without neurogenic claudication 08/05/2007 HTN, goal below 140/90 documented as of this encounter (statuses as of 03/28/2023) Resolved Problems Problem Noted Date Resolved Date Major depressive disorder, single episode, moder ate 03/23/2022 03/16/2023 Atherosclerosis of [place] co ronary artery of [place] heart with angina pectoris 09/07/2017 06/27/2018 Inflammation [...] as of this encounter (statuses as of 03/28/2023) Immunizations Name Administration Dates Next Due COVID-19 [...] After hours call. I was paged by [facility] home health nursing. She had just done a home visit with thispatient and found several medications were missing from the patient home. Specifically she is missing metformin lisinopril hydroxyzine and gabapentin. She was concerned the patient has not been taking these medications and had been using other medications that she shouldnt have been on for example medications. She threw those bryanan y. Patients blood pressure today was 90/60 [...] After hours call. I was paged by [facility] home health nursing. She had just done [...] to determine appropriateness of renewing these medications [facility] will check on her again on Sunday or Sunday. documented in this encounter Plan of Treatment Upcoming Encounters Date Type Specialty Care Team Description 04/12/2023 Office Visit Family Medicine [facility], DO [address] [facility] [address] 04/19/2023 Office Visit Cardiology Enoch Che, DO [address] [place] [address] Scheduled Procedures Name Priority Associated Diagnoses Date/Ti me COLONOSCOPY FLEXIBLE PROXIMAL DIAGNOSTIC Recall Gastrointestinal hemorrhage with melena History of colon polyps ESOPHAGOGASTRODUODENOSCOPY ( EGD), FLEXIBLE, TRANSORAL, DIAGNOSTIC Recall Gastrointestinal hemorrhage with melena History of colon polyps Health Maintenance Due Date Last Done Comments Alpha-1 Antitrypsin 1958 CKD PHOS USE SMARTSET 48302 1958 Zoster Vaccines (2 of 3) 09/24/2012 [...] Additional history exists CKD HGB USE SMARTSET 92940 08/02/202308/02, 11/18/2021, 07/31/2021, Additional history exists COLONOSCOPY-EVERY 5 YRS AGES 18-100 08/02/2023 08/02/2018, 08/02/2018, 08/25/2011 Diabetic Foot Exam 08/02/2023 08/02/2022, 0 07/21/2021, 10/05/2020, Additional history exists O2 ASSESSMENT COMPLETED IN PAST YEAR FOR COPD 03/16/2024 03/16/2023 DTaP,Tdap,and Td Vaccines (2 - Td or Tdap) 10/05/2024 10/05/2014, 03/02/2008 LUNG CANCER SCREENING - USE SMARTSET 05093 Completed 08/12/2019, 06/07/2019, 12/19/2018, Additional history exists [...] filedocumented as of this encounter Care Teams Horticultural Specialty Grower Field Relationship Specialty Start Date End Date Amparo Rich, DO [address] [place] [address] PCP - General Family Medicine 02/21/22 documented as of this encounter
--- OUTSIDE RECORDS SUMMARY | 2023-05-26 07:28 | External Medical Summary | Summary of Care ---
Author Name Unknown Organization [facility] Address [address] [place] [address] Phone [phone] Care Team Providers Care Cnc Milling Machine Operator Name Role Phone Amparo Rich DO Primary Care Provider [phone] Reason for Visit * Reason Onset Date Comments Advice 03/19/2023 Encounter Details Date Type Department Care Team Description 03/19/2023 Telephone [facility] [facility] [address] [place] [address] Amparo Rich DO [address] [place] [address] Advice Allergies Active Allergy Reactions [...] KITIndications:Type 2 diabetes, HbA1C goal < 8% ([facility]) Use 4 times a day [...] hypoxemia,COPD, group B, by GOLD 2017 classification ([facility]) Use 2 L/min(Oxygen) as directed [...] pe 2 diabetes, HbA1C goal < 8% ([facility]) Test blood sugar 4 times a day 100 Strip 07/27/2021 Active BD Swab Single Use Regular Pad Use prior to testing 100 Each 07/27/2021 Active OneTouch Delica Lancets 33GIndications:Type 2 diabetes, HbA1C goal < 8% ([facility]) Use to test Blood 100 [...] MG Sublingual Tablet Sublingual (Nitrostat)Indicatio ns:Atherosclerosis of [place] coronary artery of [place] heart with angina pectoris (HCC) Place 1 [...] Date Mitral valve insufficiency 03/16/2023 Atherosclerosis of [place] co ronary artery of [place] heart with angina pectoris 03/23/2022 Paroxysmal atrial [...] goal < 8% 014 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 Looks like [facility] is coming, did they go out there yet? * Telephone Encounter - Wendy Clayton LPN [...] call: Ashvin Baker Caller was transferred to [facility] at the nurse line. * Telephone Encounter - Shasta Alicea LPN - 03/22/2023 4:24 PM EDT Called patient's son for street address, it [address], called [facility] with updated information * Telephone Encounter - SAMIR Ryan - 03/22/2023 10:14 AM EDT Rebecca from [facility] needs the patient's street address before they can determine if they can provide service. Please return call to [phone] * Telephone Encounter - Angelique Trejo, SAMIR - 03/21/2023 1:05 PM EDT What is the reason for call? Patient's son, Ashvin calling for a status upon on CT [facility] of [facility] on his mom. States that he and his sisters have been calling to get this set-up.States that PCP office stated they would assist with this process. Please call patient's son back to advise. Return Phone #: [phone] * Telephone Encounter - Fabienne Christian, SAMIR - 03/20/2023 2:32 PM EDT Patient calling in to check on the status of previous message. Patient Called within 48 hour timeframe. Reminded patient of 48 hour turn-around time. * Telephone Encounter - Geeta Krishna, SAMIR - 03/19/2023 4:06 PM EDT Sharmin From [facility] calling to obtain pt's actual address. They are unable to assist with home health at a [address] address. Please call to advise. documented in this encounter Plan of Treatment Upcoming Encounters Date Type Specialty Care Team Description 04/12/2023 Office Visit Family [facility] [address] [facility] [address] 04/19/2023 Office Visit Cardiology Enoch Che, DO [address] [place] [address] Scheduled Procedures Name Priority Associated Diagnoses Date/Ti me COLONOSCOPY FLEXIBLE PROXIMAL DIAGNOSTIC Recall Gastrointestinal hemorrhage with melena History of colon polyps ESOPHAGOGASTRODUODENOSCOPY ( EGD), FLEXIBLE, TRANSORAL, DIAGNOSTIC Recall Gastrointestinal hemorrhage with melena History of colon polyps Health Maintenance Due Date Last Done Comments Alpha-1 Antitrypsin 1958 CKD PHOS USE SMARTSET 99341 1958 Zoster Vaccines (2 of 3) 09/24/2012 [...] 11/18/2021, Additional history exists HbA1c 06/27/2023 12/25/2022, 01/2023, 11/18/2021, Additional history exists CKD HGB USE SMARTSET 48796 08/02/202308/02, 11/18/2021, 07/31/2021, Additional history exists COLONOSCOPY-EVERY 5 YRS AGES 18-100 08/02/2023 08/02/2018, 08/02/2018, 08/25/2011 Diabetic Foot Exam 08/02/2023 08/02/2022, 0 07/21/2021, 10/05/2020, Additional history exists O2 ASSESSMENT COMPLETED IN PAST YEAR FOR COPD 03/16/2024 03/16/2023 DTaP,Tdap,and Td Vaccines (2 - Td or Tdap) 10/05/2024 10/05/2014, 03/02/2008 LUNG CANCER SCREENING - USE SMARTSET 07303 Completed 08/12/2019, 06/07/2019, 12/19/2018, Additional history exists [...] filedocumented as of this encounter Care Teams Cnc Milling Machine Operator Relationship Specialty Start Date End Date Amparo Rich, [address] [place] [address] PCP - General Family Medicine 02/21/22 documented as of this encounter
--- OUTSIDE RECORDS SUMMARY | 2023-05-26 07:28 | External Medical Summary | Summary of Care ---
Author Name Unknown Organization [facility] Address [address] [facility] [address] Phone [phone] Care Team Providers Care Clinical Science Liaison Name Role Phone Amparo Rich DO Primary Care Provider [phone] Reason for Visit * Reason Onset Date Comments FYI 03/26/2023 Encounter Details Date Type Department Care Team Description 03/26/2023 Telephone [place] [id number] [place] [address] Amparo Rich DO [address] [place] [address] FYI Allergies Active Allergy Reactions Severity Noted Date Comments Bee Venom High 11/17/2011 Life threating reaction Morphine And Related 11/04/2002 vomitting with all types of pain meds documented as of this encounter (statuses as of 03/26/2023) Medications Medication Sig Dispensed Refills Start Date End Date Status EPIPEN 0.3 MG/0.3ML IJ DEVIIndications:Bee sting One injection into thigh as needed for severe allergic reaction 1 Device 5 10/08/2013 Active Blood Glucose Monitoring Suppl (ACCU-CHEK SOPHIA PLUS) w/Device KITIndications:Type 2 diabetes, HbA1C goal < 8% ([facility]) Use 4 times a day to [...] B, by GOLD 2017 classification ([facility]) Use 2 L/min(Oxygen) as directed continuous. [...] diabetes, HbA1C goal < 8% ([facility]) Test blood sugar 4 times a day 100 Strip 07/27/2021 Active BD Swab Single Use Regular Pad Use prior to testing 100 Each 07/27/2021 Active OneTouch Delica Lancets 33GIndications:Type 2 diabetes, HbA1C goal < 8% ([facility]) Use to test Blood 100 Each [...] MG Sublingual Tablet Sublingual (Nitrostat)Indicatio ns:Atherosclerosis of [place] coronary artery of [place] heart with angina pectoris (HCC) Place 1 [...] as of this encounter (statuses as of 03/26/2023) Active Problems Problem Noted Date Mitral valve insufficiency 03/16/2023 Atherosclerosis of [place] co ronary artery of [place] heart with angina pectoris 03/23/2022 Paroxysmal atrial [...] goal < 8% 014 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 [facility] 02/16/12 Mixed dyslipidemia 01/05/2012 Tobacco use disorder 01/05/2012 Major depressive disorder 01/10/2011 Overview: ICD-10 update of inactive term Thoracic and lumbosacral neuritis 2007 Lumbosacral spondylosis 08/05/2007 Spinal stenosis of lumbar region without neurogenic claudication 08/05/2007 HTN, goal below 140/90 documented as of this encounter (statuses as of 03/26/2023) Resolved Problems Problem Noted Date Resolved Date Major depressive disorder, single episode, moder ate 03/23/2022 03/16/2023 Atherosclerosis of [place] co ronary artery of [place] heart with angina pectoris 09/07/2017 06/27/2018 Inflammation [...] as of this encounter (statuses as of 03/26/2023) Immunizations Name Administration Dates Next Due COVID-19 [...] Telephone Encounter - Lynette Holm LPN - 03/26/2023 1:55 PM EDT Will watch for order * Telephone Encounter - SAMIR Hamm - 03/26/2023 1:39 PM EDT Abi[facility] ([facility]), left a message that she is recommending pt have therapy 2x per week for 2 weeks, then 1x per week for [address] Logan be aware, they are sending over order documented in this encounter Plan of Treatment Upcoming Encounters Date Type Specialty Care Team Description 04/12/2023 Office Visit Family Medicine [facility], DO [address] [facility] [address] 04/19/2023 Office Visit Cardiology Enoch Che, DO [address] [place] [address] Scheduled Procedures Name Priority Associated Diagnoses Date/Ti me COLONOSCOPY FLEXIBLE PROXIMAL DIAGNOSTIC Recall Gastrointestinal hemorrhage with melena History of colon polyps ESOPHAGOGASTRODUODENOSCOPY ( EGD), FLEXIBLE, TRANSORAL, DIAGNOSTIC Recall Gastrointestinal hemorrhage with melena History of colon polyps Health Maintenance Due Date Last Done Comments Alpha-1 Antitrypsin 1958 CKD PHOS USE SMARTSET 31687 1960 Zoster Vaccines (2 of 3) 09/24/2012 [...] Additional history exists CKD HGB USE SMARTSET 77641 08/02/202308/02, 11/18/2021, 07/31/2021, Additional history exists COLONOSCOPY-EVERY 5 YRS AGES 18-100 08/02/2023 08/02/2018, 08/02/2018, 08/25/2011 Diabetic Foot Exam 08/02/2023 08/02/2022, 0 07/21/2021, 10/05/2020, Additional history exists O2 ASSESSMENT COMPLETED IN PAST YEAR FOR COPD 03/16/2024 03/16/2023 DTaP,Tdap,and Td Vaccines (2 - Td or Tdap) 10/05/2024 10/05/2014, 03/02/2008 LUNG CANCER SCREENING - USE SMARTSET 17877 Completed 08/12/2019, 06/07/2019, 12/19/2018, Additional history exists [...] filedocumented as of this encounter Care Teams Clinical Science Liaison Relationship Specialty Start Date End Date Amparo Rich, DO [address] [place] [address] PCP - General Family Medicine 02/21/22 documented as of this encounter
--- OUTSIDE RECORDS SUMMARY | 2023-05-26 07:28 | External Medical Summary | Summary of Care ---
Author Name Unknown Organization [facility] Address [address] [place] [address] Phone [phone] Care Team Providers Care Restaurant Cook Name Role Phone KingsleyAmparo jackson Primary Care Provider [phone] Encounter Details Date Type Department Care Team Description 03/19/2023 Telephone [facility] [address] [place] [address] Maddie Aguayo MD [address] [place] [address] Allergies Active Allergy Reactions Severity [...] pe 2 diabetes, HbA1C goal < 8% ([facility]) Test blood sugar 4 times a day 100 Strip 5 07/27/2021 Active BD Swab Single Use Regular Pad Use prior to testing 100 Each 07/27/2021 Active OneTouch Delica Lancets 33GIndications:Type 2 diabetes, HbA1C goal < 8% ([facility]) Use to test Blood [...] MG Sublingual Tablet Sublingual (Nitrostat)Indicatio ns:Atherosclerosis of [place] coronary artery of [place] heart with angina pectoris (HCC) Place 1 [...] Date Mitral valve insufficiency 03/16/2023 Atherosclerosis of [place] co ronary artery of [place] heart with angina pectoris 03/23/2022 Paroxysmal atrial [...] goal < 8% 014 Coronary atherosclerosis of [place] coron андрей artery 02/21/2012 S/P angioplasty with stent 02/21/2012 Overview: Diagnonal #1. [facility] 02/16/12 Mixed dyslipidemia 01/05/2012 Tobacco [...] episode, moder ate 03/23/2022 03/16/2023 Atherosclerosis of [place] co ronary artery of [place] heart with angina pectoris 09/07/2017 06/27/2018 Inflammation [...] Family Medicine [facility]o [facility], [facility] [address] [id number] 04/19/2023 Office Visit Cardiology Enoch Che, DO [address] [place] [address] Scheduled Procedures Name Priority Associated Diagnoses Date/Ti me COLONOSCOPY FLEXIBLE PROXIMAL DIAGNOSTIC Recall Gastrointestinal hemorrhage with melena History of colon polyps ESOPHAGOGASTRODUODENOSCOPY ( EGD), FLEXIBLE, TRANSORAL, DIAGNOSTIC Recall Gastrointestinal hemorrhage with melena History of colon polyps Health Maintenance Due Date Last Done Comments Alpha-1 Antitrypsin 1958 CKD PHOS USE SMARTSET 21814 1958 Zoster Vaccines (2 of 3) 09/24/2012 [...] Additional history exists CKD HGB USE SMARTSET 66412 08/02/202308/02, 11/18/2021, 07/31/2021, Additional history exists COLONOSCOPY-EVERY 5 YRS AGES 18-100 08/02/2023 08/02/2018, 08/02/2018, 08/25/2011 Diabetic Foot Exam 08/02/2023 08/02/2022, 0 07/21/2021, 10/05/2020, Additional history exists O2 ASSESSMENT COMPLETED IN PAST YEAR FOR COPD 03/16/2024 03/16/2023 DTaP,Tdap,and Td Vaccines (2 - Td or Tdap) 10/05/2024 10/05/2014, 03/02/2008 LUNG CANCER SCREENING - USE SMARTSET 12448 Completed 08/12/2019, 06/07/2019, 12/19/2018, Additional history exists [...] filedocumented as of this encounter Care Teams Restaurant Cook Relationship Specialty Start Date End Date Amparo Rich, [address] [place] [address] PCP - General Family Medicine 02/21/22 documented as of this encounter
--- OUTSIDE RECORDS SUMMARY | 2023-05-26 07:28 | External Medical Summary | Summary of Care ---
Author Name Unknown Organization [facility] Address [address] [place] [address] Phone [phone] Care Team Providers Care Goggles Assembler Name Role Phone Amparo Rich DO Primary Care Provider [phone] Reason for Visit * Reason Onset Date Comments Advice 03/19/2023 Encounter Details Date Type Department Care Team Description 03/19/2023 Telephone [place] [address] [place] [address] Amparo Rich DO [address] [place] [address] Advice Allergies Active Allergy Reactions [...] [facility]) Use to test Blood 100 Each 07/27/2021 [...] Sublingual Tablet Sublingual (Nitrostat)Indicatio ns:Atherosclerosis of [place] coronary artery of [place] heart with angina pectoris (HCC) Place 1 [...] Mitral valve insufficiency 03/16/2023 Atherosclerosis of [place] co ronary artery of [place] heart with angina pectoris 03/23/2022 Paroxysmal atrial [...] goal < 8% 014 Coronary atherosclerosis of [place] coron андрей artery 02/21/2012 S/P angioplasty with stent 02/21/2012 Overview: Diagnonal #1. [facility] 02/16/12 Mixed dyslipidemia 01/05/2012 Tobacco use disorder [...] episode, moder ate 03/23/2022 03/16/2023 Atherosclerosis of [place] co ronary artery of [place] heart with angina pectoris 09/07/2017 06/27/2018 Inflammation [...] Encounter - Lynette Holm LPN - 03/28/2023 9:30 AM EDT See other TE * Telephone Encounter - Amparo Rich DO [...] call: Ashvin Baker Caller was transferred to [facility] at the nurse line. * Telephone Encounter - Shasta Alicea LPN - 03/22/2023 4:24 PM EDT Called patient's son for street address, it [address] [facility], called [facility] with updated information * Telephone Encounter - SAMIR Ryan - 03/22/2023 10:14 AM EDT Rebecca from [facility] needs the patient's street address before they can determine if they can provide service. Please return call to [phone] address. * Telephone Encounter - SAMIR Chapman - 03/21/2023 1:05 PM EDT What is the reason for call? Patient's son, Ashvin calling for a status upon on CT [facility] of [facility] on his mom. States that he and his sisters have been calling to get this set-up.States that PCP office stated they would assist with this process. Please call patient's son back to advise. Return Phone #: [phone] * Telephone Encounter - SAMIR Sagastume - [...] Family Medicine [facility]paro Rich, DO [address] [facility] [address] 04/19/2023 Office Visit Cardiology Enoch Che, DO [address] [place] [address] Scheduled Procedures Name Priority Associated Diagnoses Date/Ti me COLONOSCOPY FLEXIBLE PROXIMAL DIAGNOSTIC Recall Gastrointestinal hemorrhage with melena History of colon polyps ESOPHAGOGASTRODUODENOSCOPY ( EGD), FLEXIBLE, TRANSORAL, DIAGNOSTIC Recall Gastrointestinal hemorrhage with melena History of colon polyps Health Maintenance Due Date Last Done Comments Alpha-1 Antitrypsin 1958 CKD PHOS USE SMARTSET 19964 1958 Zoster Vaccines (2 of 3) 09/24/2012 [...] Additional history exists CKD HGB USE SMARTSET 49422 08/02/202308/02, 11/18/2021, 07/31/2021, Additional history exists COLONOSCOPY-EVERY 5 YRS AGES 18-100 08/02/2023 08/02/2018, 08/02/2018, 08/25/2011 Diabetic Foot Exam 08/02/2023 08/02/2022, 0 07/21/2021, 10/05/2020, Additional history exists O2 ASSESSMENT COMPLETED IN PAST YEAR FOR COPD 03/16/2024 03/16/2023 DTaP,Tdap,and Td Vaccines (2 - Td or Tdap) 10/05/2024 10/05/2014, 03/02/2008 LUNG CANCER SCREENING - USE SMARTSET 59766 Completed 08/12/2019, 06/07/2019, 12/19/2018, Additional history exists [...] filedocumented as of this encounter Care Teams Goggles Assembler Relationship Specialty Start Date End Date Amparo Rich, DO [address] [place] [address] PCP - General Family Medicine 02/21/22 documented as of this encounter
--- OUTSIDE RECORDS SUMMARY | 2023-05-26 07:28 | External Medical Summary | Summary of Care ---
Author Name Unknown Organization [facility] Address [address] [place] [address] Phone [phone] Care Team Providers Care Postal Service Sectional Center Manager Name Role Phone HarrisbluAmparo hernandez Primary Care Provider [phone] Reason for Visit * Reason Onset Date Comments After Hours Call 03/23/2023 Encounter Details Date Type Department Care Team Description 03/23/[address] [address] Lucy Youssef MD [address] [place] [address] [place] [address] After Hours Call Allergies Active Allergy Reactions Severity Noted Date Comments Bee Venom High 11/17/2011 Life threating reaction Morphine And Related 11/04/2002 vomitting with all types of pain meds documented as of this encounter (statuses as of 03/24/2023) Medications Medication Sig Dispensed Refills Start Date End Date Status EPIPEN 0.3 MG/0.3ML IJ DEVIIndications:Bee sting One injection into thigh as needed for severe allergic reaction 1 Device 5 10/08/2013 Active Blood Glucose Monitoring Suppl (ACCU-CHEK SOPHIA PLUS) w/Device KITIndications:Type 2 diabetes, HbA1C goal < 8% ([facility]) Use 4 times a day to [...] hypoxemia,COPD, group B, by GOLD 2017 classification ([facility]) Use 2 L/min(Oxygen) as directed continuous. [...] pe 2 diabetes, HbA1C goal < 8% ([facility]) Test blood sugar 4 times a day 100 Strip 07/27/2021 Active BD Swab Single Use Regular Pad Use prior to testing 100 Each 07/27/2021 Active OneTouch Delica Lancets 33GIndications:Type 2 diabetes, HbA1C goal < 8% ([facility]) Use to test Blood 100 Each [...] Sublingual Tablet Sublingual (Nitrostat)Indicatio ns:Atherosclerosis of [place] coronary artery of [place] heart with angina pectoris (HCC) Place 1 [...] as of this encounter (statuses as of 03/24/2023) Active Problems Problem Noted Date Mitral valve insufficiency 03/16/2023 Atherosclerosis of [place] co ronary artery of [place] heart with angina pectoris 03/23/2022 Paroxysmal atrial [...] < 8% 014 Coronary atherosclerosis of [place] coron андрей artery 02/21/2012 S/P angioplasty with stent 02/21/2012 Overview: Diagnonal #1. [facility] 02/16/12 Mixed dyslipidemia 01/05/2012 Tobacco use disorder 01/05/2012 Major depressive disorder 01/10/2011 Overview: ICD-10 update of inactive term Thoracic and lumbosacral neuritis 2007 Lumbosacral spondylosis 08/05/2007 Spinal stenosis of lumbar region without neurogenic claudication 08/05/2007 HTN, goal below 140/90 documented as of this encounter (statuses as of 03/24/2023) Resolved Problems Problem Noted Date Resolved Date Major depressive disorder, single episode, moder ate 03/23/2022 03/16/2023 Atherosclerosis of [place] co ronary artery of [place] heart with angina pectoris 09/07/2017 06/27/2018 Inflammation [...] as of this encounter (statuses as of 03/24/2023) Immunizations Name Administration Dates Next Due COVID-19 [...] After hours call. I was paged by [facility] home health nursing. She had just done [...] determine appropriateness of renewing these medications [facility] will check on her again on Sunday or Sunday. documented in this encounter Miscellaneous Notes * Telephone Encounter - Lucy Gordon MD - 03/24/2023 8:09 AM EDT After hours call. I was paged by [facility] home health nursing. She had just done [...] determine appropriateness of renewing these medications [facility] will check on her again on Sunday or Sunday. documented in this encounter Plan of Treatment Upcoming Encounters Date Type Specialty Care Team Description 04/12/2023 Office Visit Family Medicine [facility]paro [facility], DO [address] [id number] 04/19/2023 Office Visit Cardiology Enoch Che, DO [address] [place] [address] Scheduled Procedures Name Priority Associated Diagnoses Date/Ti me COLONOSCOPY FLEXIBLE PROXIMAL DIAGNOSTIC Recall Gastrointestinal hemorrhage with melena History of colon polyps ESOPHAGOGASTRODUODENOSCOPY ( EGD), FLEXIBLE, TRANSORAL, DIAGNOSTIC Recall Gastrointestinal hemorrhage with melena History of colon polyps Health Maintenance Due Date Last Done Comments Alpha-1 Antitrypsin 1958 CKD PHOS USE SMARTSET 54389 1958 Zoster Vaccines (2 of 3) 09/24/2012 [...] Additional history exists CKD HGB USE SMARTSET 65504 08/02/202308/02, 11/18/2021, 07/31/2021, Additional history exists COLONOSCOPY-EVERY 5 YRS AGES 18-100 08/02/2023 08/02/2018, 08/02/2018, 08/25/2011 Diabetic Foot Exam 08/02/2023 08/02/2022, 0 07/21/2021, 10/05/2020, Additional history exists O2 ASSESSMENT COMPLETED IN PAST YEAR FOR COPD 03/16/2024 03/16/2023 DTaP,Tdap,and Td Vaccines (2 - Td or Tdap) 10/05/2024 10/05/2014, 03/02/2008 LUNG CANCER SCREENING - USE SMARTSET 61143 Completed 08/12/2019, 06/07/2019, 12/19/2018, Additional history exists [...] filedocumented as of this encounter Care Teams Postal Service Sectional Center Manager Relationship Specialty Start Date End Date Amparo Rich, [address] [place] [address] PCP - General Family Medicine 02/21/22 documented as of this encounter
--- OUTSIDE RECORDS SUMMARY | 2023-05-26 07:28 | External Medical Summary | Summary of Care ---
Author Name Unknown Organization [facility] Address [address] [place] [address] Phone [phone] Care Team Providers Care Marketing Information Coordinator Name Role Phone HarrisbluAmparo hernandez Primary Care Provider [phone] Reason for Visit * Reason Onset Date Comments After Hours Call 03/23/2023 Encounter Details Date Type Department Care Team Description 03/23/[address] [address] Lucy Youssef MD [address] [place] [address] [place] [address] After Hours Call Allergies Active [...] 2 diabetes, HbA1C goal < 8% ([facility]) Use 4 times a day to check [...] group B, by GOLD 2017 classification ([facility]) Use 2 L/min(Oxygen) as directed continuous. concentrated [...] 2 diabetes, HbA1C goal < 8% ([facility]) Test blood sugar 4 times a day 100 Strip 07/27/2021 Active BD Swab Single Use Regular Pad Use prior to testing 100 Each 07/27/2021 Active OneTouch Delica Lancets 33GIndications:Type 2 diabetes, HbA1C goal < 8% ([facility]) Use to test Blood 100 Each 07/27/2021 [...] MG Sublingual Tablet Sublingual (Nitrostat)Indicatio ns:Atherosclerosis of [place] coronary artery of [place] heart with angina pectoris (HCC) Place 1 [...] Date Mitral valve insufficiency 03/16/2023 Atherosclerosis of [place] co ronary artery of [place] heart with angina pectoris 03/23/2022 Paroxysmal atrial [...] goal < 8% 014 Coronary atherosclerosis of [place] coron андрей artery 02/21/2012 S/P angioplasty with stent 02/21/2012 Overview: Diagnonal #1. [facility] 02/16/12 Mixed dyslipidemia 01/05/2012 Tobacco use [...] episode, moder ate 03/23/2022 03/16/2023 Atherosclerosis of [place] co ronary artery of [place] heart with angina pectoris 09/07/2017 06/27/2018 Inflammation [...] After hours call. I was paged by [facility] home health nursing. She had just [...] to determine appropriateness of renewing these medications [facility] will check on her again on [...] After hours call. I was paged by [facility] home health nursing. She had just [...] Medicine Amparo Rich, DO [address] [facility] [id number] 04/19/2023 Office Visit Cardiology Enoch Che, DO [address] [place] [address] Scheduled Procedures Name Priority Associated Diagnoses Date/Ti me COLONOSCOPY FLEXIBLE PROXIMAL DIAGNOSTIC Recall Gastrointestinal hemorrhage with melena History of colon polyps ESOPHAGOGASTRODUODENOSCOPY ( EGD), FLEXIBLE, TRANSORAL, DIAGNOSTIC Recall Gastrointestinal hemorrhage with melena History of colon polyps Health Maintenance Due Date Last Done Comments Alpha-1 Antitrypsin 1958 CKD PHOS USE SMARTSET 80012 1960 Zoster Vaccines (2 of 3) 09/24/2012 [...] Additional history exists CKD HGB USE SMARTSET 29281 08/02/202308/02, 11/18/2021, 07/31/2021, Additional history exists COLONOSCOPY-EVERY 5 YRS AGES 18-100 08/02/2023 08/02/2018, 08/02/2018, 08/25/2011 Diabetic Foot Exam 08/02/2023 08/02/2022, 0 07/21/2021, 10/05/2020, Additional history exists O2 ASSESSMENT COMPLETED IN PAST YEAR FOR COPD 03/16/2024 03/16/2023 DTaP,Tdap,and Td Vaccines (2 - Td or Tdap) 10/05/2024 10/05/2014, 03/02/2008 LUNG CANCER SCREENING - USE SMARTSET 97429 Completed 08/12/2019, 06/07/2019, 12/19/2018, Additional history exists [...] filedocumented as of this encounter Care Teams Marketing Information Coordinator Relationship Specialty Start Date End Date Amparo Rich, DO [address] [place] [address] PCP - General Family Medicine 02/21/22 documented as of this encounter
--- OUTSIDE RECORDS SUMMARY | 2023-05-26 07:28 | External Medical Summary | Summary of Care ---
Author Name Unknown Organization [facility] Address [address] [place] [address] Phone [phone] Care Team Providers Care Instrument Person Name Role Phone HarrisAmparo valverde Primary Care Provider [phone] Reason for Visit * Reason Onset Date Comments Other 03/16/2023 Encounter Details Date Type Department Care Team Description 03/16/2023 Telephone [facility] [address] [place] [address] Maddie Aguayo MD [address] [place] [address] Other Allergies Active Allergy Reactions [...] diabetes, HbA1C goal < 8% ([facility]) Use 4 times a day to [...] B, by GOLD 2017 classification ([facility]) Use 2 L/min(Oxygen) as directed continuous. [...] diabetes, HbA1C goal < 8% ([facility]) Test blood sugar 4 times a day 100 Strip 5 07/27/2021 Active BD Swab Single Use Regular Pad Use prior to testing 100 Each 07/27/2021 Active OneTouch Delica Lancets 33GIndications:Type 2 diabetes, HbA1C goal < 8% ([facility]) Use to test Blood 100 Each [...] MG Sublingual Tablet Sublingual (Nitrostat)Indicatio ns:Atherosclerosis of [place] coronary artery of [place] heart with angina pectoris (HCC) Place 1 [...] Date Mitral valve insufficiency 03/16/2023 Atherosclerosis of [place] co ronary artery of [place] heart with angina pectoris 03/23/2022 Paroxysmal atrial [...] goal < 8% 014 Coronary atherosclerosis of [place] coron андрей artery 02/21/2012 S/P angioplasty with stent 02/21/2012 Overview: Diagnonal #1. [facility] 8/24/12 Mixed dyslipidemia 01/05/2012 Tobacco use disorder [...] episode, moder ate 03/23/2022 03/16/2023 Atherosclerosis of [place] co ronary artery of [place] heart with angina pectoris 09/07/2017 06/27/2018 Inflammation [...] Family Medicine [facility] [address] [facility] [id number] 04/19/2023 Office Visit Cardiology Enoch Che, [address] [place] [address] Scheduled Procedures Name Priority Associated Diagnoses Date/Ti me COLONOSCOPY FLEXIBLE PROXIMAL DIAGNOSTIC Recall Gastrointestinal hemorrhage with melena History of colon polyps ESOPHAGOGASTRODUODENOSCOPY ( EGD), FLEXIBLE, TRANSORAL, DIAGNOSTIC Recall Gastrointestinal hemorrhage with melena History of colon polyps Health Maintenance Due Date Last Done Comments Alpha-1 Antitrypsin 1958 CKD PHOS USE SMARTSET 48640 1960 Zoster Vaccines (2 of 3) 09/24/2012 07/30/2012 DISCUSS TOBACCO CESSATION (REFER TO SMARTSET #9248) 06/01/2016 06/01/2015 (Discussed) DXA Scan 07/18/2018 07/18/2011, [...] Additional history exists CKD HGB USE SMARTSET 43210 08/02/202308/02, 11/18/2021, 07/31/2021, Additional history exists COLONOSCOPY-EVERY 5 YRS AGES 18-100 08/02/2023 08/02/2018, 08/02/2018, 08/25/2011 Diabetic Foot Exam 08/02/2023 08/02/2022, 0 07/21/2021, 10/05/2020, Additional history exists O2 ASSESSMENT COMPLETED IN PAST YEAR FOR COPD 03/16/2024 03/16/2023 DTaP,Tdap,and Td Vaccines (2 - Td or Tdap) 10/05/2024 10/05/2014, 03/02/2008 LUNG CANCER SCREENING - USE SMARTSET 04574 Completed 08/12/2019, 06/07/2019, 12/19/2018, Additional history exists [...] filedocumented as of this encounter Care Teams Instrument Person Relationship Specialty Start Date End Date Amparo Rich, DO [address] [place] [address] PCP - General Family Medicine 02/21/22 documented as of this encounter
--- OUTSIDE RECORDS SUMMARY | 2023-05-26 07:29 | External Medical Summary | Summary of Care ---
Author Name Unknown Organization [facility] Address [address] [place] [facility] [place] [facility] [address] Phone [phone] Care Team Providers Care Applications Manager Name Role Phone HarrisbluAmparo hernandez Primary Care Provider [phone] Reason for Visit * Reason Comments Earache Pt states that she h as been having runny nose with earache and sore throat Encounter Details Date Type Department Care Team Description 03/02/2023 Office Visit [facility] [address] [place] [address] Wen Briceño MD [address] [place] [address] COPD, group B, by GOLD 2017 classification ([facility])*; Type 2 diabetes, HbA1C goal < 8% ([facility]); Paroxysmal atrial fibrillation ([facility]); Acute cough; Rhinorrhea; Fatigue, unspecified type Allergies Active Allergy Reactions Severity Noted Date Comments Bee Venom High 11/17/2011 Life threating reaction Morphine And Related 11/04/2002 vomitting with all types of pain meds documented as of this encounter (statuses as of 03/02/2023) Medications Medication Sig Dispensed Refills Start Date End Date Status EPIPEN 0.3 MG/0.3ML IJ DEVIIndications:Bee sting One injection into thigh as needed for severe allergic reaction 1 Device 5 10/08/2013 Active Blood Glucose Monitoring Suppl (ACCU-CHEK LEONORA PLUS) w/Device KITIndications:Type 2 diabetes, HbA1C goal < 8% ([facility]) Use 4 times a day to [...] hypoxemia,COPD, group B, by GOLD 2017 classification ([facility]) Use 2 L/min(Oxygen) as directed continuous. concentrated and home fill with portability 1 Each 0 01/21/2021 Active Additional Information Patient not taking.Reported on 01/31/2023 Premarin 0.625 MG/GM Vaginal Cream (Estrogens, Conjugated)Indicati ons:Postmenopausal atrophic vaginitis Administer into the vagina 0.5 g before bedtime. As directed.. 42.5 g 5 07/21/2021 Active Accu-Chek Leonroa Plus In Vitro Strip (Glucose Blood)Indications:T ype 2 diabetes, HbA1C goal < 8% ([facility]) Test blood sugar 4 times a day 100 Strip 5 07/27/2021 Active BD Swab Single Use Regular Pad Use prior to testing 100 Each 5 07/27/2021 Active OneTouch Delica Lancets 33GIndications:Type 2 diabetes, HbA1C goal < 8% ([facility]) Use to test Blood 100 Each 5 07/27/2021 Active Oxybutynin Chloride ER 5 MG Oral Tablet Extended Release 24 Hour (Ditropan XL)Indications:Urin андрей incontinence, nocturnal enuresis Take by mouth 1 Tablet in the morning. Do not cut, crush or chew. 30 Tablet 11 11/18/2021 Active Pseudoephedrine HCl ER 120 MG Oral [...] MG Sublingual Tablet Sublingual (Nitrostat)Indicati ons:Atherosclerosis of [place] coronary artery of [place] heart with angina pectoris (HCC) Place 1 [...] the morning. 90 Tablet 5 12/25/2022 Active Metoprolol Tartrate 50 MG Oral Tablet (Lopressor)Indicati ons:Paroxysmal atrial fibrillation (HCC) Take 1 Tablet by mouth in the morning and 1 Tablet before bedtime. 180 Tablet 1 12/25/2022 Active traZODone HCl 100 MG Oral Tablet (Desyrel)Indication s:Persistent insomnia Take 1 Tablet by mouth at bedtime. 90 Tablet 1 01/30/2023 Active Sertraline HCl 25 MG Oral Tablet (Zoloft)Indications :Stressful life event affecting family Take 1 Tablet by mouth in the morning. 90 Tablet 1 02/14/2023 Active Amoxicillin-Pot Clavulanate 875-125 MG Oral Tablet (Augmentin)Indicati ons:COPD, group B, by GOLD 2017 classification ([facility]),Acute cough,Rhinorrhea,Fa tigue, unspecified type Take 1 Tablet by mouth in the morning and 1 Tablet before bedtime. 20 Tablet 0 03/02/2023 Active Azithromycin 250 MG Oral Tablet (Zithromax)Indicati ons:COPD, group B, by GOLD 2017 classification ([facility]),Acute cough,Rhinorrhea,Fa tigue, unspecified type Take 2 tabs by mouth on the first day, then 1 tab daily on days two through five 6 Tablet 0 03/02/2023 Active Amoxicillin-Pot Clavulanate 875-125 MG Oral Tablet (Augmentin)Indicati ons:COPD, group B, by GOLD 2017 classification ([facility]),Acute cough,Rhinorrhea,Fa tigue, unspecified type Take 1 Tablet by mouth in the morning and 1 Tablet before bedtime. Do all this for 10 days. 20 Tablet 0 03/02/2023 03/02/20 23 Discontinu ed(Refill) Azithromycin 250 MG Oral Tablet (Zithromax)Indicati ons:COPD, group B, by GOLD 2017 classification ([facility]),Acute cough,Rhinorrhea,Fa tigue, unspecified type Take 2 tabs by mouth on the first day, then 1 tab daily on days two through five 6 Tablet 0 03/02/2023 03/02/20 23 Discontinu ed(Refill) documented as of this encounter (statuses as of 03/02/2023) Active Problems Problem Noted Date Major depressive disorder, single episod e, moderate 03/23/2022 Atherosclerosis of [place] co ronary artery of [place] heart with angina pectoris 03/23/2022 Paroxysmal atrial [...] goal < 8% 014 Coronary atherosclerosis of [place] coron андрей artery 02/21/2012 S/P angioplasty with stent 02/21/2012 Overview: Diagnonal #1. [facility] 02/16/12 Mixed dyslipidemia 01/05/2012 Tobacco use disorder 01/05/2012 Major depressive disorder 01/10/2011 Overview: ICD-10 update of inactive term Thoracic and lumbosacral neuritis 2007 Lumbosacral spondylosis 08/05/2007 Spinal stenosis of lumbar region without neurogenic claudication 08/05/2007 HTN, goal below 140/90 documented as of this encounter (statuses as of 03/02/2023) Resolved Problems Problem Noted Date Resolved Date Atherosclerosis of [place] co ronary artery of [place] heart with angina pectoris 09/07/2017 06/27/2018 Inflammation [...] as of this encounter (statuses as of 03/02/2023) Immunizations Name Administration Dates Next Due COVID-19 mRNA, LNP-s, No Pre serve, 2-Dose Series (Moderna) 11/16/2020,10/19/2020 PPD 03/06/2007,02/27/2007 Pneumococcal Conjugate Vacc, 13 Valent (Prevnar) 12/01/2019 Pneumococcal Polysaccharide PPV23 (Pneumovax) 03/13/2012 Season Influenza, Quad, PF, Adjuvanted, 65+ Yrs, IM (FLUAD) 03/02/2020 Seasonal Influenza, PF, 6 mo ns & Above, IM , (Flulaval) 03/24/2019,03/06/2018,05/26/2017 03/06/2019 Seasonal Influenza, Quadriva lent Hd (Fluzone Hd) [...] Sign Reading Time Taken Comments Blood Pressure 122/82 03/02/2023 9:55 AM EDT Pulse 118 03/02/2023 9:55 AM EDT Temperature 36.1 C (96.9 F) 03/02/2023 9:55 AM ED T Respiratory Rate 18 03/02/2023 9:55 AM EDT Oxygen Saturation 96% 03/02/2023 9:55 AM EDT Inhaled Oxygen Concentration - - Weight 69.1 kg (152 lb 4.8 oz) 03/02/2023 9:55 A M EDT Height 149.9 cm (4' 11") 03/02/2023 9:55 AM EDT Body Mass Index 30.76 03/02/2023 9:55 AM EDT documented in this encounter Progress Notes * Wen Lizette Chipe Navarro, MD - 03/02/2023 9:57 AM EDT ASSESSMENT / PLAN: Amalia Baker is a 82 year old female PMHx copd / afib / smoker A/P: This is day 9 of illness and not improving - reviewed supportive care like steroid containing nasalsprays vs saline spray, antihistamine, and pushing fluids. Discussed risks and benefits of proceeding with antibiotic at this time. Patient elects to proceed.Script sent and instructed on use. no note requested. If any worsening cough / or new chest pain or dyspnea - pt was advised to go to ER directly if any worsening. Verbalized understanding and agreement with this plan, answered all questions. COPD, group B, by GOLD 2017 classification ([facility]) (Primary) - Amoxicillin-Pot Clavulanate 875-125 MG Oral Tablet (Augmentin); Take 1 Tablet by mouth in the morning and 1 Tablet before bedtime. - Azithromycin 250 MG Oral Tablet (Zithromax); Take 2 tabs by mouth on the first day, then 1 tab daily on days two through five Type 2 diabetes, HbA1C goal < 8% ([facility]) Paroxysmal atrial fibrillation ([facility]) Acute cough - Amoxicillin-Pot Clavulanate 875-125 MG Oral Tablet (Augmentin); Take 1 Tablet by mouth in the morning and 1 Tablet before bedtime. - Azithromycin 250 MG Oral Tablet (Zithromax); Take 2 tabs by mouth on the first day, then 1 tab daily on days two through five Rhinorrhea - Amoxicillin-Pot Clavulanate 875-125 MG Oral Tablet (Augmentin); Take 1 Tablet by mouth in the morning and 1 Tablet before bedtime. - Azithromycin 250 MG Oral Tablet (Zithromax); Take 2 tabs by mouth on the first day, then 1 tab daily on days two through five Fatigue, unspecified type - Amoxicillin-Pot Clavulanate 875-125 MG Oral Tablet (Augmentin); Take 1 Tablet by mouth in the morning and 1 Tablet before bedtime. - Azithromycin 250 MG Oral Tablet (Zithromax); Take 2 tabs by mouth on the first day, then 1 tab daily on days two through five Follow Up: Return if symptoms worsen or fail to improve. If needed, prefers contact by: Ok to leave message on phone: SUBJECTIVE: Nursing Notes: Jimena Toiparrishayley, [facility] 03/02/23 0958 Signed Amalia Baker is a 82 year old female who presents today for Chief Complaint Patient presents with Earache Pt states that she has been having runny nose with earache and sore throat Pt states that the issue started on last HPI: Amalia Baker is a 82 year old female. This is day 9 of illness - endorses rhinorrhea/ otalgia / sore throat . Worsening productive cough. 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 M48.061 HTN, goal below 140/90 I10 Major depressive disorder F32.9 Mixed dyslipidemia E78.2 Tobacco use disorder F17.200 Coronary atherosclerosis of [place] coronary artery I25.10 S/P angioplasty with stent Z95.820 Type 2 diabetes, HbA1C goal < 8% ([facility]) E11.9 Diabetic polyneuropathy associated with type 2 diabetes mellitus ([facility]) E11.42 Nocturnal hypoxemia G47.34 Centrilobular emphysema ([facility]) J43.2 Major depressive disorder, recurrent, unspecified ([facility]) F33.9 COPD, group B, by GOLD 2017 classification ([facility]) J44.9 Low serum vitamin B12 E53.8 Chronic kidney disease, stage 3a ([facility]) N18.31 Paroxysmal atrial fibrillation ([facility]) I48.0 Major depressive disorder, single episode, moderate ([facility]) F32.1 Atherosclerosis of [place] coronary artery of [place] heart with angina pectoris ([facility]) I25.119 Current Outpatient Medications Medication Sig Dispense Refill EPIPEN 0.3 MG/0.3ML IJ EVA One injection into thigh as needed for severe allergic reaction 1 Device 5 Blood Glucose Monitoring Suppl (ACCU-CHEK LEONORA PLUS) w/Device KIT Use 4 times a day to check bloodsugar. 1 Kit 0 Cyanocobalamin (B-12-SL) [address] 1,000 mcg under the tongue daily. 90 Tab 3 Premarin 0.625 MG/GM Vaginal Cream (Estrogens, Conjugated) Administer into the vagina 0.5 g before bedtime. As directed.. 42.5 g 5 Accu-Chek Leonora Plus In Vitro Strip (Glucose Blood) Test blood sugar 4 times a day 100 Strip 5 BD Swab Single Use Regular Pad Use prior to testing 100 Each 5 OneTouch Delica Lancets 33G Use to test Blood 100 Each 5 Oxybutynin Chloride ER 5 MG Oral Tablet Extended Release 24 Hour (Ditropan XL) Take by mouth 1 Tablet in the morning. Do not cut, crush or chew. 30 Tablet 11 Pseudoephedrine HCl ER 120 MG Oral Tablet Extended Release 12 Hour Take 1 Tablet by mouth 2 times aday as needed. Fluticasone Propionate 50 MCG/ACT Nasal Suspension Administer into each nostril 2 Sprays in the morning. 18.2 mL 3 hydrOXYzine HCl 10 MG Oral Tablet (Atarax) TAKE 1 TABLET BY MOUTH TWICE A DAY NEEDED FOR [id number] Tablet 0 Fluconazole 150 MG Oral Tablet [...] mouth in the morning. 90 Tablet 5 Metoprolol Tartrate 50 MG Oral Tablet (Lopressor) Take 1 Tablet by mouth in the morning and 1 Tablet before bedtime. 180 Tablet 1 traZODone HCl 100 MG Oral Tablet (Desyrel) Take 1 Tablet by mouth at bedtime. 90 Tablet 1 Sertraline HCl 25 MG Oral Tablet (Zoloft) Take 1 Tablet by mouth in the morning. 90 Tablet 1 Amoxicillin-Pot Clavulanate 875-125 MG Oral Tablet (Augmentin) Take 1 Tablet by mouth in the morning and 1 Tablet before bedtime. 20 Tablet 0 Azithromycin 250 MG Oral Tablet (Zithromax) Take 2 tabs by mouth on the first day, then 1 tab dailyon days two through five 6 Tablet 0 oxygen IN GAS 2 L of oxygen while sleeping (Patient not taking: Reported on 01/31/2023) 1 Each 0 oxygen IN GAS Use 2 L/min(Oxygen) as directed continuous. concentrated and home fill with portability (Patient not taking: Reported on 01/31/2023) 1 Each 0 No current facility-administered medications for this visit. OBJECTIVE: BP 122/82 (BP Site: Right Arm, BP Position: Sitting, BP Cuff Size: Regular) | Pulse 118 | Temp 36.1C (96.9 F) (Tympanic) | Resp 18 | Ht 1.499 m (4' 11") | Wt 69.1 kg (152 lb 4.8 oz) | SpO2 96% |BMI 30.76 kg/m | BSA 1.7 m Vitals reviewed and is normotensive / afebrile / and not tachycardic General: No acute distress. Neuro: Alert Pleasant & interactive. Respiratory: Good inspiratory effort, no labored breathing. CTAB CV: irreg irreg rhythm and rate. no M R G HEENT: Conjunctivae appear clear. No swelling noted face or lips. Skin: No rash visible on exposed skin areas, normal coloration & appears dry. Psych: Normal affect. Fluent speech. Wen Briceño MD [address] [address] There are no Patient Instructions on file for this visit. documented in this encounter Nursing Notes * TYREE Mcnamara - 03/02/2023 9:54 AM EDT Amalia Baker is a 82 year old female who presents today for Chief Complaint Patient presents with Earache Pt states that she has been having runny nose with earache and sore throat Pt states that the issue started on last documented in this encounter Plan of Treatment Upcoming Encounters Date Type Specialty Care Team Description 04/12/2023 Office Visit [facility] [address] [facility] [place] [address] 04/19/2023 Office Visit Cardiology Enoch Che, DO [address] [place] [address] Scheduled Procedures Name Priority Associated Diagnoses Date/Ti me COLONOSCOPY FLEXIBLE PROXIMAL DIAGNOSTIC Recall Gastrointestinal hemorrhage with melena History of colon polyps ESOPHAGOGASTRODUODENOSCOPY ( EGD), FLEXIBLE, TRANSORAL, DIAGNOSTIC Recall Gastrointestinal hemorrhage with melena History of colon polyps Health Maintenance Due Date Last Done Comments Alpha-1 Antitrypsin 1958 CKD PHOS USE SMARTSET 35009 1960 Zoster Vaccines (2 of 3) 09/24/2012 [...] Additional history exists CKD HGB USE SMARTSET 11334 08/02/202308/02, 11/18/2021, 07/31/2021, Additional history exists COLONOSCOPY-EVERY 5 YRS AGES 18-100 08/02/2023 08/02/2018, 08/02/2018, 08/25/2011 Diabetic Foot Exam 08/02/2023 08/02/2022, 0 07/21/2021, 10/05/2020, Additional history exists O2 ASSESSMENT COMPLETED IN PAST YEAR FOR COPD 02/01/2024 01/31/2023 DTaP,Tdap,and Td Vaccines (2 - Td or Tdap) 10/05/2024 10/05/2014, 03/02/2008 LUNG CANCER SCREENING - USE SMARTSET 33452 Completed 08/12/2019, 06/07/2019, 12/19/2018, Additional history exists [...] as of this encounter Visit Diagnoses Diagnosis COPD, group B, by GOLD 2017 classification (HCC)- Primary Type 2 diabetes, HbA1C goal < 8% ([facility]) Type II or unspecified type diabetes mellitus without mention of complication, not stated as uncontrolled Paroxysmal atrial fibrillation (HCC) Atrial fibrillation Acute cough Rhinorrhea Other diseases of nasal cavity and sinuses Fatigue, unspecified type documented in this encounter Care Teams Applications Manager Relationship Specialty Start Date End Date Amparo Rich, DO [address] [place] [address] PCP - General Family Medicine 02/21/22 documented as of this encounter
--- OUTSIDE RECORDS SUMMARY | 2023-05-26 07:29 | External Medical Summary | Summary of Care ---
Author Name Unknown Organization [facility] Address [address] [place] [address] Phone [phone] Care Team Providers Care Straddle Bug Name Role Phone Amparo Rich DO Primary Care Provider [phone] Reason for Visit * Reason Onset Date Comments Advice 03/19/2023 Encounter Details Date Type Department Care Team Description 03/19/2023 Telephone [place] [address] [place] [address] Amparo Rich DO [address] [place] [address] Advice Allergies Active Allergy Reactions Severity Noted Date Comments Bee Venom High 11/17/2011 Life threating reaction Morphine And Related 11/04/2002 vomitting with all types of pain meds documented as of this encounter (statuses as of 03/22/2023) Medications Medication Sig Dispensed Refills Start Date End Date Status EPIPEN 0.3 MG/0.3ML IJ DEVIIndications:Bee sting One injection into thigh as needed for severe allergic reaction 1 Device 5 10/08/2013 Active Blood Glucose Monitoring Suppl (ACCU-CHEK SOPHIA PLUS) w/Device KITIndications:Type 2 diabetes, HbA1C goal < 8% ([facility]) Use 4 times a day [...] B, by GOLD 2017 classification ([facility]) Use 2 L/min(Oxygen) as directed [...] diabetes, HbA1C goal < 8% ([facility]) Test blood sugar 4 times a day 100 Strip 07/27/2021 Active BD Swab Single Use Regular Pad Use prior to testing 100 Each 07/27/2021 Active OneTouch Delica Lancets 33GIndications:Type 2 diabetes, HbA1C goal < 8% ([facility]) Use to test Blood 100 [...] MG Sublingual Tablet Sublingual (Nitrostat)Indicatio ns:Atherosclerosis of [place] coronary artery of [place] heart with angina pectoris (HCC) Place [...] as of this encounter (statuses as of 03/22/2023) Active Problems Problem Noted Date Mitral valve insufficiency 03/16/2023 Atherosclerosis of [place] co ronary artery of [place] heart with angina pectoris 03/23/2022 Paroxysmal [...] goal < 8% 014 Coronary atherosclerosis of [place] coron андрей artery 02/21/2012 S/P angioplasty with stent 02/21/2012 Overview: Diagnonal #1. 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 Please return call to [phone] address[address] * Telephone Encounter - SAMIR Chapman - 03/21/2023 1:05 PM EDT What is the reason for call? Patient's son, Ashvin calling for a status upon on [place] [employer] for Home Health on his mom. States that he and his sisters have been calling to get this set-up.States that PCP office stated they would assist with this process. Please call patient's son back to advise. Return Phone #: [phone] * Telephone Encounter - SAMIR Sagastume - 03/20/2023 2:32 PM EDT Patient calling in to check on the status of previous message. Patient Called within 48 hour timeframe. Reminded patient of 48 hour turn-around time. * Telephone Encounter - SAMIR Bill - 03/19/2023 4:06 PM EDT Sharmin From [facility] calling to obtain pt's actual address. They are unable to assist with home health at a [address] address. Please call to advise. documented in this encounter Plan of Treatment Upcoming Encounters Date Type Specialty Care Team Description 04/12/2023 Office Visit Family Medicine Amparo Rich, DO [address] [address] 04/19/2023 Office Visit Cardiology Enoch Che, DO [address] [place] [address] Scheduled Procedures Name Priority Associated Diagnoses Date/Ti me COLONOSCOPY FLEXIBLE PROXIMAL DIAGNOSTIC Recall Gastrointestinal hemorrhage with melena History of colon polyps ESOPHAGOGASTRODUODENOSCOPY ( EGD), FLEXIBLE, TRANSORAL, DIAGNOSTIC Recall Gastrointestinal hemorrhage with melena History of colon polyps Health Maintenance Due Date Last Done Comments Alpha-1 Antitrypsin 1960 CKD PHOS USE SMARTSET 49326 1958 Zoster Vaccines (2 of 3) 09/24/2012 [...] Additional history exists CKD HGB USE SMARTSET 14882 08/02/202308/02, 11/18/2021, 07/31/2021, Additional history exists COLONOSCOPY-EVERY 5 YRS AGES 18-100 08/02/2023 08/02/2018, 08/02/2018, 08/25/2011 Diabetic Foot Exam 08/02/2023 08/02/2022, 0 07/21/2021, 10/05/2020, Additional history exists O2 ASSESSMENT COMPLETED IN PAST YEAR FOR COPD 03/16/2024 03/16/2023 DTaP,Tdap,and Td Vaccines (2 - Td or Tdap) 10/05/2024 10/05/2014, 03/02/2008 LUNG CANCER SCREENING - USE SMARTSET 26665 Completed 08/12/2019, 06/07/2019, 12/19/2018, Additional history exists [...] filedocumented as of this encounter Care Teams Straddle Bug Relationship Specialty Start Date End Date Amparo Rich, [address] [place] [address] PCP - General Family Medicine 02/21/22 documented as of this encounter
--- OUTSIDE RECORDS SUMMARY | 2023-05-26 07:29 | External Medical Summary | Summary of Care ---
Author Name Unknown Organization [facility] Address [address] [place] [address] Phone [phone] Care Team Providers Care Chemical Project Engineer Name Role Phone Amparo Rich DO Primary Care Provider [phone] Reason for Visit * Reason Onset Date Comments Advice 02/15/2023 Encounter Details Date Type Department Care Team Description 02/15/2023 Telephone [place] [address] [place] [address] Amparo Rich DO [address] [place] [address] Advice Allergies Active Allergy Reactions Severity Noted Date Comments Bee Venom High 11/17/2011 Life threating reaction Morphine And Related 11/04/2002 vomitting with all types of pain meds documented as of this encounter (statuses as of 02/16/2023) Medications Medication Sig Dispensed Refills Start Date [...] directed.. 42.5 g 5 07/21/2021 Active Accu-Chek Sophia Plus In Vitro Strip (Glucose [...] MG Sublingual Tablet Sublingual (Nitrostat)Indicatio ns:Atherosclerosis of [place] coronary artery of [place] heart with angina pectoris (HCC) Place 1 [...] Active Metoprolol Tartrate 50 MG Oral Tablet (Lopressor)Indicatio ns:Paroxysmal atrial fibrillation (HCC) Take 1 Tablet by [...] the morning. 90 Tablet 1 02/14/2023 Active documented as of this encounter (statuses as of 02/16/2023) Active Problems Problem Noted Date Major depressive disorder, single episod e, moderate 03/23/2022 Atherosclerosis of [place] co ronary artery of [place] heart with angina pectoris 03/23/2022 Paroxysmal atrial [...] goal < 8% 014 Coronary atherosclerosis of [place] coron андрей artery 02/21/2012 S/P angioplasty with stent 02/21/2012 Overview: Diagnonal #1. [facility] 02/16/12 Mixed dyslipidemia 01/05/2012 Tobacco use disorder 01/05/2012 Major depressive disorder 01/10/2011 Overview: ICD-10 update of inactive term Thoracic and lumbosacral neuritis 2007 Lumbosacral spondylosis 08/05/2007 Spinal stenosis of lumbar region without neurogenic claudication 08/05/2007 HTN, goal below 140/90 documented as of this encounter (statuses as of 02/16/2023) Resolved Problems Problem Noted Date Resolved Date Atherosclerosis of [place] co ronary artery of [place] heart with angina pectoris 09/07/2017 06/27/2018 Inflammation [...] as of this encounter (statuses as of 02/16/2023) Immunizations Name Administration Dates Next Due COVID-19 [...] Miscellaneous Notes * Telephone Encounter - SAMIR Rodriguez - 02/15/2023 3:10 PM EDT Pt calling to provide phone to where provider needs to call for pt approval of out of work for 30 days phone number [phone] documented in this encounter Plan of Treatment Upcoming Encounters Date Type Specialty Care Team Description 04/12/2023 Office Visit Family Medicine Amparo Rich, DO [address] [place] [address] 04/19/2023 Office Visit Cardiology Enoch Che, DO [address] [place] [address] Scheduled Procedures Name Priority Associated Diagnoses Date/Ti me COLONOSCOPY FLEXIBLE PROXIMAL DIAGNOSTIC Recall Gastrointestinal hemorrhage with melena History of colon polyps ESOPHAGOGASTRODUODENOSCOPY ( EGD), FLEXIBLE, TRANSORAL, DIAGNOSTIC Recall Gastrointestinal hemorrhage with melena History of colon polyps Health Maintenance Due Date Last Done Comments Alpha-1 Antitrypsin 1958 CKD PHOS USE SMARTSET 31489 1958 Zoster Vaccines (2 of 3) 09/24/2012 07/30/2012 DISCUSS TOBACCO CESSATION (REFER TO SMARTSET #3291) 06/01/2016 06/01/2015 (Discussed) DXA Scan 07/18/2018 07/18/2011, 07/18/2011 *COPD SEVERITY VERIFIED BY PFT 02/01/2019 COVID-19 Vaccine (3 - Moderna series) 01/11/2021 11/16/2020, 10/19/2020 Albumin/Creatinine Ratio 11/18/20222 022, 08/24/2017, 10/30/2016, Additional history exists Depression Screening, Annual for Pts 12 and Over 11/18/2022 11/18/2021 Influenza Vaccine (FLU shot) (#1) 2023 03/23/2022, 02/24/2021, 03/02/2020, Additional history exists DIABETES-EYE EXAM 05/29/2023 05/29/2022, , 03/09/2016 GFR 06/27/2023 12/25/2022, 02/0 01/2023, 11/18/2021, Additional history exists HbA1c 06/27/2023 12/25/2022, 01/2023, 11/18/2021, Additional history exists CKD HGB USE SMARTSET 10823 08/02/202308/02, 11/18/2021, 07/31/2021, Additional history exists COLONOSCOPY-EVERY 5 YRS AGES 18-100 08/02/2023 08/02/2018, 08/02/2018, 08/25/2011 DIABETES-FOOT EXAM 08/02/2023 08/02/2022, 0 07/21/2021, 10/05/2020, Additional history exists O2 ASSESSMENT COMPLETED IN PAST YEAR FOR COPD 02/01/2024 01/31/2023 DTaP,Tdap,and Td Vaccines (2 - Td or Tdap) 10/05/2024 10/05/2014, 03/02/2008 LUNG CANCER SCREENING - USE SMARTSET 68590 Completed 08/12/2019, 06/07/2019, 12/19/2018, Additional history exists [...] filedocumented as of this encounter Care Teams Chemical Project Engineer Relationship Specialty Start Date End Date Amparo Rich, DO [address] [place] [address] PCP - General Family Medicine 02/21/22 documented as of this encounter
--- OUTSIDE RECORDS SUMMARY | 2023-05-26 07:29 | External Medical Summary ---
Author Name Unknown Address Unknown Organization K01:[facility] [place] [address] [facility] [place] [address] Laboratory Report Ordering Provider Test Date Status PETER TAY 03/16/2023 14:56:48 Final <10,000 colonies/ml mixed no rmal genesis Observation Date Value Abnormality Reference (Units ) Status Bacteria identified in Specimen by Culture 03/16/2023 14:56:48 [id number]^KLEBSIELL A PNEUMONIAE Abnormal Final 10,000 to 100,000 colonies/m L Klebsiella pneumoniae Performing Location [facility] [place] [address] [facility] [place] [address] Ordering Provider Test Date Status PETER TAY 03/16/2023 14:56:48 Final Observation Date Value Abnormality Reference (Units ) Status Ampicillin + Sulbactam 03/16/2023 14:56:48 8 Susceptible Final Cefazolin 03/16/2023 14:56:48 <=4 Susceptible Final Cefepime susceptibility 03/16/2023 14:56:48 <=1 Susceptible Final Ceftriaxone suceptibility 03/16/2023 14:56:48 <=1 Susceptible Final Ciprofloxacin 03/16/2023 14:56:48 <=0.25 Susceptible Final Due to serious side effects, the FDA has advised against using Ciprofloxacin to treat uncomplicated UTIs and respiratory tract infections unless there are no alternative treatment options. Gentamicin susceptibility 03/16/2023 14:56:48 <=1 Susc eptible Final Nitrofurantoin susceptibility 03/16/2023 14:56:48 64 Intermediate Final Piperacillin + Tazobactamsusceptibility 03/16/2023 14:56:48 8 Susceptible Final TMP-SMZ susceptibility 03/16/2023 14:56:48 <=20 Suscept ible Final Test: Culture, Urine, Quanti tative
Specimen Source: Urine, Unspecified
Specimen Type: Urine
Specimen Date: 03/16/2023 2:56 PM
Result Date: 03/18/2023 1:54 PM
Result Status: Final result
Abnormal: Yes
Resulting Lab: [facility]
[address]
[place] [address]

CULTURE

10,000 to 100,000 colonies/mL Klebsiella pneumoniae (Abnormal)

<10,000 colonies/ml mixed normal genesis

SUSCEPTIBILITY

Klebsiella pneumoniae
METHOD MICROBROTH DILUTIONS

AMPICILLIN/SULBACTAM 8 Susceptible
CEFAZOLIN <=4 Susceptible
CEFEPIME <=1 Susceptible
CEFTRIAXONE <=1 Susceptible
CIPROFLOXACIN <=0.25 Susceptible [1]
GENTAMICIN <=1 Susceptible
NITROFURANTOIN 64 Intermediate
PIPERACILLIN TAZOBACTAM 8 Susceptible
TRIMETH/SULFAMETHOXAZOLE <=20 Susceptible

[1] Due to serious side effects, the FDA has advised against using
Ciprofloxacin to treat uncomplicated UTIs and respiratory tract infections
unless there are no alternative treatment options.

null Performing Location [facility] [place] [address] [facility] [place] [address]
--- OUTSIDE RECORDS SUMMARY | 2023-05-26 07:29 | External Medical Summary | Summary of Care ---
Author Name Unknown Organization [facility] Address [address] [place] [address] Phone [phone] Care Team Providers Care Web Development Intern Name Role Phone Amparo Rich DO Primary Care Provider [phone] Reason for Visit * Reason Onset Date Comments Advice 03/19/2023 Encounter Details Date Type Department Care Team Description 03/19/2023 Telephone [place] [address] [place] [address] Amparo Rich DO [address] [place] [address] Advice Allergies Active Allergy Reactions [...] KITIndications:Type 2 diabetes, HbA1C goal < 8% ([facility]) Use 4 times a day [...] hypoxemia,COPD, group B, by GOLD 2017 classification ([facility]) Use 2 L/min(Oxygen) as directed [...] pe 2 diabetes, HbA1C goal < 8% ([facility]) Test blood sugar 4 times a day 100 Strip 07/27/2021 Active BD Swab Single Use Regular Pad Use prior to testing 100 Each 07/27/2021 Active OneTouch Delica Lancets 33GIndications:Type 2 diabetes, HbA1C goal < 8% ([facility]) Use to test Blood 100 [...] MG Sublingual Tablet Sublingual (Nitrostat)Indicatio ns:Atherosclerosis of [place] coronary artery of [place] heart with angina pectoris (HCC) Place 1 [...] Date Mitral valve insufficiency 03/16/2023 Atherosclerosis of [place] co ronary artery of [place] heart with angina pectoris 03/23/2022 Paroxysmal atrial [...] goal < 8% 014 Coronary atherosclerosis of [place] coron андрей artery 02/21/2012 S/P angioplasty with [...] episode, moder ate 03/23/2022 03/16/2023 Atherosclerosis of [place] co ronary artery of [place] heart with angina pectoris 09/07/2017 06/27/2018 Inflammation [...] Ashvin Baker Caller was transferred to [facility] at the nurse line. * Telephone Encounter - Shasta Alicea LPN - 03/22/2023 4:24 PM EDT Called patient's son for street address, it [address] [place] [address], called [facility] with updated information * Telephone Encounter - SAMIR Ryan - 03/22/2023 10:14 AM EDT Rebecca from [facility] needs the patient's street address before they can determine if they can provide service. Please return call to [phone] address. * Telephone Encounter - SAMIR Chapman - 03/21/2023 1:05 PM EDT What is the reason for call? Patient's son, Ashvin calling for a status upon on [place] [facility] [employer] for Home Health on his mom. States that he and his sisters have been calling to get this set-up.States that PCP office stated they would assist with this process. Please call patient's son back to advise. Return Phone #: [phone] * Telephone Encounter - SAMIR Sagastume - [...] Family Medicine Amparo Rich, DO [address] [facility] [address] 04/19/2023 Office Visit Cardiology Enoch Che, DO [address] [place] [address] Scheduled Procedures Name Priority Associated Diagnoses Date/Ti me COLONOSCOPY FLEXIBLE PROXIMAL DIAGNOSTIC Recall Gastrointestinal hemorrhage with melena History of colon polyps ESOPHAGOGASTRODUODENOSCOPY ( EGD), FLEXIBLE, TRANSORAL, DIAGNOSTIC Recall Gastrointestinal hemorrhage with melena History of colon polyps Health Maintenance Due Date Last Done Comments Alpha-1 Antitrypsin 1958 CKD PHOS USE SMARTSET 06573 1958 Zoster Vaccines (2 of 3) 09/24/2012 [...] Additional history exists CKD HGB USE SMARTSET 67043 08/02/202308/02, 11/18/2021, 07/31/2021, Additional history exists COLONOSCOPY-EVERY 5 YRS AGES 18-100 08/02/2023 08/02/2018, 08/02/2018, 08/25/2011 Diabetic Foot Exam 08/02/2023 08/02/2022, 0 07/21/2021, 10/05/2020, Additional history exists O2 ASSESSMENT COMPLETED IN PAST YEAR FOR COPD 03/16/2024 03/16/2023 DTaP,Tdap,and Td Vaccines (2 - Td or Tdap) 10/05/2024 10/05/2014, 03/02/2008 LUNG CANCER SCREENING - USE SMARTSET 45614 Completed 08/12/2019, 06/07/2019, 12/19/2018, Additional history exists [...] filedocumented as of this encounter Care Teams Web Development Intern Relationship Specialty Start Date End Date Amparo Rich, DO [address] [place] [address] PCP - General Family Medicine 02/21/22 documented as of this encounter
--- OUTSIDE RECORDS SUMMARY | 2023-05-26 07:29 | External Medical Summary | Summary of Care ---
Author Name Unknown Organization [facility] Address [address] [facility] [address] Phone [phone] Care Team Providers Care Sole Buffer Name Role Phone Amparo Rich Primary Care Provider [phone] Reason for Visit * Reason Onset Date Comments Hospital Follow-Up 03/14/2023 DANIEL Encounter Details Date Type Department Care Team Description 03/14/[address] [address] Eda Dawn RN Hospital Follow-Up (DANIEL) Allergies Active Allergy Reactions Severity Noted Date Comments Bee Venom High 11/17/2011 Life threating reaction Morphine And Related 11/04/2002 vomitting with all types of pain meds documented as of this encounter (statuses as of 03/14/2023) Medications Medication Sig Dispensed Refills Start Date End Date Status EPIPEN 0.3 MG/0.3ML IJ DEVIIndications:Bee sting One injection into thigh as needed for severe allergic reaction 1 Device 5 10/08/2013 Active Blood Glucose Monitoring Suppl (ACCU-CHEK SOPHIA PLUS) w/Device KITIndications:Type 2 diabetes, HbA1C goal < 8% ([facility]) Use 4 times a day [...] group B, by GOLD 2017 classification ([facility]) Use 2 L/min(Oxygen) as directed [...] ype 2 diabetes, HbA1C goal < 8% ([facility]) Test blood sugar 4 times a day 100 Strip 5 07/27/2021 Active BD Swab Single Use Regular Pad Use prior to testing 100 Each 07/27/2021 Active OneTouch Delica Lancets 33GIndications:Type 2 diabetes, HbA1C goal < 8% ([facility]) Use to test Blood 100 [...] ns:Type 2 diabetes, HbA1C goal < 8% ([facility]),HTN, goal below 140/90 Take 1 [...] MG Sublingual Tablet Sublingual (Nitrostat)Indicati ons:Atherosclerosis of [place] coronary artery of [place] heart with angina pectoris (HCC) Place [...] Sunday only. 0 03/13/2023 Active Metoprolol Succinate 50 MG Oral Capsule ER 24 Hour Sprinkle Take 75 mg by mouth in the morning and 75 mg before bedtime. 0 Active Metoprolol Tartrate 50 MG Oral Tablet (Lopressor)Indicati ons:Paroxysmal atrial fibrillation (HCC) Take 1 Tablet by mouth in the morning and 1 Tablet before bedtime. 180 Tablet 1 12/25/2022 03/14/20 23 Discontinu ed(Medicat ion/Dose Changed) Amoxicillin-Pot Clavulanate 875-125 MG Oral Tablet (Augmentin)Indicati ons:COPD, group B, by GOLD 2017 classification (HCC),Acute cough,Rhinorrhea,Fa tigue, unspecified type Take 1 Tablet by mouth in the morning and 1 Tablet before bedtime. 20 Tablet 0 03/02/2023 03/14/20 23 Discontinu ed(Patient preference /discontin uation) Azithromycin 250 MG Oral Tablet (Zithromax)Indicati ons:COPD, group B, by GOLD 2017 classification (HCC),Acute cough,Rhinorrhea,Fa tigue, unspecified type Take 2 tabs by mouth on the first day, then 1 tab daily on days two through five 6 Tablet 0 03/02/2023 03/14/20 23 Discontinu ed(Patient preference /discontin uation) documented as of this encounter (statuses as of 03/14/2023) Active Problems Problem Noted Date Major depressive disorder, single episod e, moderate 03/23/2022 Atherosclerosis of [place] co ronary artery of [place] heart with angina pectoris 03/23/2022 Paroxysmal [...] goal < 8% 014 Coronary atherosclerosis of [place] coron андрей artery 02/21/2012 S/P angioplasty with stent 02/21/2012 Overview: Diagnonal #1. [facility] 02/16/12 Mixed dyslipidemia 01/05/2012 Tobacco use disorder 01/05/2012 Major depressive disorder 01/10/2011 Overview: ICD-10 update of inactive term Thoracic and lumbosacral neuritis 2007 Lumbosacral spondylosis 08/05/2007 Spinal stenosis of lumbar region without neurogenic claudication 08/05/2007 HTN, goal below 140/90 documented as of this encounter (statuses as of 03/14/2023) Resolved Problems Problem Noted Date Resolved Date Atherosclerosis of [place] co ronary artery of [place] heart with angina pectoris 09/07/2017 06/27/2018 [...] as of this encounter (statuses as of 03/14/2023) Immunizations Name Administration Dates Next Due COVID-19 [...] encounter Miscellaneous Notes * Telephone Encounter - Eda Dawn RN - 03/14/2023 3:44 PM EDT Images from the original note were not included. Transitions of Care Note Reason for Referral:Recent Admission Phone visit for follow up: DANIEL Admitted to: [facility], Date: 03/11/2023 Discharged to: Home, Date: 03/13/2023 Diagnosis driving hospitalization: CHF Exacerbation, Afib with RVR Source/Contact: Patient SUBJECTIVE Consent: Verbal consent for review of hospital discharge: Yes REVIEW OF SYSTEMS Patient/Other Reports: Current patient/caregiver problems or concerns: States she is doing well at home. Denies SOB. CV: Denies problems Pulmonary: Denies problems Chills/Sweats/Fever:Denies chills/sweats Denies fever Appetite:Denies problems such as nausea, vomiting, burning, decreased appetite Current diet: Carbohydrate consistent Bowel: denies problems Bladder: denies problems Wound (If applicable): N/A Pain:Denies Sleep:Denies problems FUNCTIONAL STATUS: ADL'S: Needs Assistance With:N/A as pt is independent IADL'S: Needs Assistance With:N/A as pt is independent Cognitive and Mental Health: denies problems, alert and oriented x 3, and able to communicate, understand instructions, process information. MEDICATION RECONCILIATION Medications: Discharge med list reviewed with patient or caregiver Went over new and changed medication in detail with patient. States the pharmacy would not fill oneof her medications. Called pharmacy and talked with pharmacist. Patient filled Metoprolol [id number] mg script on 03/07 and is not due to refill until 03/28/2023. Called back to patient and discussedthat she already had medication and discussed dosage change. Patient states she has medication and verbalized understanding. ASSESSMENT Medication Risk Assessment: No risks identified Did patient fail outpatient treatment? Yes Discharge instructions available for review? No Draft PLAN Symptom Monitoring Interventions:Member/caregiver education - signs and symptoms to contact PrimaryCare (DO NOT DELETE-Three padilla symptoms patient is to report to PCP) 1. Chest Pain/SOB 2. Fever/chills 3. Worsening symptoms Cataract Lens GeneratorToy Stuffer of Care interventions/Action Plan: 5 - 7 day follow-up with PCP in place - Date: PCP appointment 03/16/2023 Educated on role of DANIEL completed with patient/caregiver. Educated patient/caregiver on patient right to have input on DANIEL plan of care. Verification of Home Health/DME if indicated: NA Identified Care Gaps: No Care Gaps closed this call: Appointment made or confirmed and Transition of Care follow-up communication Re-evaluation of Plan of Care and progress towards goals achievement: Patient education this visit: Verbal, Confirmed PCP appointment 03/16/2023, discussed reasons to call sooner as above Plan to instructed to call Primary Care Provider with change in symptoms or as needed before next follow-up, discharge needs met, verbalizes understanding and agrees with plan. Eda Dawn, RN documented in this encounter Plan of Treatment Upcoming Encounters Date Type Specialty Care Team Description 03/16/2023 Office Visit Family Medicine [facility] [address] [facility] [place] [address] 04/12/2023 Office Visit Family Medicine Amparo Rich DO [address] [facility] [place] [address] 04/19/2023 Office Visit Cardiology Enoch Che DO [address] [place] [address] Scheduled Procedures Name Priority Associated Diagnoses Date/Ti me COLONOSCOPY FLEXIBLE PROXIMAL DIAGNOSTIC Recall Gastrointestinal hemorrhage with melena History of colon polyps ESOPHAGOGASTRODUODENOSCOPY ( EGD), FLEXIBLE, TRANSORAL, DIAGNOSTIC Recall Gastrointestinal hemorrhage with melena History of colon polyps Health Maintenance Due Date Last Done Comments Alpha-1 Antitrypsin 1958 CKD PHOS USE SMARTSET 67210 1958 Zoster Vaccines (2 of 3) 09/24/2012 [...] Additional history exists CKD HGB USE SMARTSET 92068 08/02/202308/02, 11/18/2021, 07/31/2021, Additional history exists COLONOSCOPY-EVERY 5 YRS AGES 18-100 08/02/2023 08/02/2018, 08/02/2018, 08/25/2011 Diabetic Foot Exam 08/02/2023 08/02/2022, 0 07/21/2021, 10/05/2020, Additional history exists O2 ASSESSMENT COMPLETED IN PAST YEAR FOR COPD 03/02/2024 03/02/2023 DTaP,Tdap,and Td Vaccines (2 - Td or Tdap) 10/05/2024 10/05/2014, 03/02/2008 LUNG CANCER SCREENING - USE SMARTSET 49384 Completed 08/12/2019, 06/07/2019, 12/19/2018, Additional history exists [...] filedocumented as of this encounter Care Teams Sole Buffer Relationship Specialty Start Date End Date Amparo Rich, [address] [place] [address] PCP - General Family Medicine 02/21/22 documented as of this encounter
--- OUTSIDE RECORDS SUMMARY | 2023-05-26 07:29 | External Medical Summary | Summary of Care ---
Author Name Unknown Organization [facility] Address [address] [place] [address] Phone [phone] Care Team Providers Care Refining Engineer Name Role Phone KingsleyAmparo jackson Primary Care Provider [phone] Encounter Details Date Type Department Care Team Description 03/19/[address] [facility] [address] [place] [address] Maddie Aguayo MD [address] [place] [address] Allergies Active Allergy Reactions Severity Noted Date Comments Bee Venom High 11/17/2011 Life threating reaction Morphine And Related 11/04/2002 vomitting with all types of pain meds documented as of this encounter (statuses as of 03/19/2023) Medications Medication Sig Dispensed Refills Start Date End Date Status EPIPEN 0.3 MG/0.3ML IJ DEVIIndications:Bee sting One injection into thigh as needed for severe allergic reaction 1 Device 5 10/08/2013 Active Blood Glucose Monitoring Suppl (ACCU-CHEK SOPHIA PLUS) w/Device KITIndications:Type 2 diabetes, HbA1C goal < 8% ([facility]) Use 4 times a day to [...] B, by GOLD 2017 classification ([facility]) Use 2 L/min(Oxygen) as directed continuous. [...] diabetes, HbA1C goal < 8% ([facility]) Test blood sugar 4 times a day 100 Strip 5 07/27/2021 Active BD Swab Single Use Regular Pad Use prior to testing 100 Each 07/27/2021 Active OneTouch Delica Lancets 33GIndications:Type 2 diabetes, HbA1C goal < 8% ([facility]) Use to test Blood 100 Each [...] MG Sublingual Tablet Sublingual (Nitrostat)Indicatio ns:Atherosclerosis of [place] coronary artery of [place] heart with angina pectoris (HCC) Place 1 [...] Sunday, and Sunday only. 0 03/13/2023 Active Sulfamethoxazole-Tri methoprim 800-160 MG Oral Tablet (Bactrim DS) Take 1 Tablet by mouth in the morning and 1 Tablet before bedtime. Do all this for 3 days. Until gone. 6 Tablet 0 03/16/2023 3 Active Metoprolol Succinate ER 100 MG [...] as of this encounter (statuses as of 03/19/2023) Active Problems Problem Noted Date Mitral valve insufficiency 03/16/2023 Atherosclerosis of [place] co ronary artery of [place] heart with angina pectoris 03/23/2022 Paroxysmal atrial [...] goal < 8% 014 Coronary atherosclerosis of [place] coron андрей artery 02/21/2012 S/P angioplasty with stent 02/21/2012 Overview: Diagnonal #1. [facility] 02/16/12 Mixed dyslipidemia 01/05/2012 Tobacco use disorder 01/05/2012 Major depressive disorder 01/10/2011 Overview: ICD-10 update of inactive term Thoracic and lumbosacral neuritis 2007 Lumbosacral spondylosis 08/05/2007 Spinal stenosis of lumbar region without neurogenic claudication 08/05/2007 HTN, goal below 140/90 documented as of this encounter (statuses as of 03/19/2023) Resolved Problems Problem Noted Date Resolved Date Major depressive disorder, single episode, moder ate 03/23/2022 03/16/2023 Atherosclerosis of [place] co ronary artery of [place] heart with angina pectoris 09/07/2017 06/27/2018 Inflammation [...] as of this encounter (statuses as of 03/19/2023) Immunizations Name Administration Dates Next Due COVID-19 [...] encounter Miscellaneous Notes * Telephone Encounter - Maddie Aguayo MD - 03/19/2023 7:38 AM EDT Urine culture was positive and bactrim should work 3 days med was sent And will extend Abx Tx for 4 more days Sent out documented in this encounter Plan of Treatment Upcoming Encounters Date Type Specialty Care Team Description 04/12/2023 [facility] Visit [facility] [address] [facility] [address] 04/19/2023 Office Visit Cardiology Enoch Che, DO [address] [place] [address] Scheduled Procedures Name Priority Associated Diagnoses Date/Ti me COLONOSCOPY FLEXIBLE PROXIMAL DIAGNOSTIC Recall Gastrointestinal hemorrhage with melena History of colon polyps ESOPHAGOGASTRODUODENOSCOPY ( EGD), FLEXIBLE, TRANSORAL, DIAGNOSTIC Recall Gastrointestinal hemorrhage with melena History of colon polyps Health Maintenance Due Date Last Done Comments Alpha-1 Antitrypsin 1958 CKD PHOS USE SMARTSET 84359 1960 Zoster Vaccines (2 of 3) 09/24/2012 [...] Additional history exists CKD HGB USE SMARTSET 92323 08/02/202308/02, 11/18/2021, 07/31/2021, Additional history exists COLONOSCOPY-EVERY 5 YRS AGES 18-100 08/02/2023 08/02/2018, 08/02/2018, 08/25/2011 Diabetic Foot Exam 08/02/2023 08/02/2022, 0 07/21/2021, 10/05/2020, Additional history exists O2 ASSESSMENT COMPLETED IN PAST YEAR FOR COPD 03/16/2024 03/16/2023 DTaP,Tdap,and Td Vaccines (2 - Td or Tdap) 10/05/2024 10/05/2014, 03/02/2008 LUNG CANCER SCREENING - USE SMARTSET 69812 Completed 08/12/2019, 06/07/2019, 12/19/2018, Additional history exists [...] filedocumented as of this encounter Care Teams Refining Engineer Relationship Specialty Start Date End Date Amparo Rich, DO [address] [place] [address] PCP - General Family Medicine 02/21/22 documented as of this encounter
--- OUTSIDE RECORDS SUMMARY | 2023-05-26 07:29 | External Medical Summary | Summary of Care ---
Author Name Unknown Organization [facility] Address [address] [place] [address] Phone [phone] Care Team Providers Care Home Improvement Advisor Name Role Phone Amparo Rich DO Primary Care Provider [phone] Reason for Referral * Evaluate & Treat - Unlimited Visits (Within 10 days (routine)) - Pending Review Specialty Diagnoses / Procedures Referred By Sheldon veag Referred To Contact HOME CARE / Home Care Diagnoses Acute on chronic diastolic CHF (congestive heart failure) (HCC) Paroxysmal atrial fibrillation (HCC) Urinary incontinence, unspecified type Confusion Maddie Aguayo MD [address] [place] [address] Referral ID Status Reason Start Date Expiration Date Visits Requested Visits Authorized [id number] Pending Review Specialty Services Required 03/16/2023 999 999 Question Answer Referral Priority Within 10 days (routine) Comments Documentation of [id number]-[id number] Encounter Addendum Patient Name: Amalia Garcia Olivia I certify that this patient is under my care and that I, or a nurse practitioner or physician's media center assistant working with me, had a [id number] encounter that meets the physician [id number] encounter requirements with this patient on: Mar 16 2023 The encounter with the patient was in whole, or in part, for the following medical condition, which is the primary reason for home health care (List medical condition): Medication management I certify that, based on my findings, the following services are medically necessary home health services: Nursing To provide the following care/treatments: (All hospitalists not following the patient after discharge should complete this section): nursing care Primary Care Physician to follow home care plan of care after discharge: Amparo Rich My clinical findings support the need for the above services because: mild confusion, med check up Further, I certify that my clinical findings support that this patient is homebound (i.e. Absences from home require considerable and taxing effort and are for medical reasons or adventist services or infrequently or of short duration when for other reason) because: Not able to drive, SOB , CHF Physician Signature: Date of Signature: Physician Printed Name: Maddie Aguayo MD Reason for Visit * Reason Comments Hospital Follow-Up Encounter Details Date Type Department Care Team Description 03/16/2023 Office Visit [facility] [address] [place] [address] Maddie Aguayo MD [address] [place] [address] Acute on chronic diastolic CHF (congestive heart failure) (HCC)*; Paroxysmal atrial fibrillation (HCC); Atherosclerosis of [place] coronary artery of [place] heart with angina pectoris ([facility]); Centrilobular emphysema ([facility]); Atherosclerosis of [place] coronary artery of [place] heart without angina pectoris; Chronic kidney disease, stage 3a ([facility]); Type 2 diabetes, HbA1C goal < 8% ([facility]); Tobacco use disorder; HTN, goal below 140/90; Mitral valve insufficiency, unspecified etiology; Urinary incontinence, unspecified type; Confusion Allergies Active Allergy Reactions Severity Noted Date [...] e 2 diabetes, HbA1C goal < 8% ([facility]) [...] Type 2 diabetes, HbA1C goal < 8% ([facility]) Test blood sugar 4 times a day 100 Strip 5 2 Active BD Swab Single Use Regular Pad Use prior to testing 100 Each 5 2 Active OneTouch Delica Lancets 33GIndications:Typ e 2 diabetes, HbA1C goal < 8% ([facility]) Use to test Blood 100 Each 5 2 Active Oxybutynin Chloride ER 5 MG Oral Tablet Extended Release 24 Hour (Ditropan XL)Indications:Uri nary incontinence, nocturnal enuresis Take by mouth 1 Tablet in the morning. Do not cut, crush or chew. 30 Tablet 11 2 Active Additional Information Patient not taking.Reported on 03/16/2023 Pseudoephedrine HCl ER 120 MG Oral Tablet Extended Release 12 Hour Take 1 Tablet by mouth 2 times a day as needed. 0 Active Fluticasone Propionate 50 MCG/ACT Nasal SuspensionIndicati ons:Chronic rhinitis Administer into each nostril 2 Sprays in the morning. 18.2 mL 3 2 Active hydrOXYzine HCl 10 MG Oral Tablet (Atarax)Indication s:Anxiety TAKE 1 TABLET BY MOUTH TWICE A DAY NEEDED FOR ANXIETY 30 Tablet 0 2 Active Fluconazole 150 MG Oral Tablet [...] Sublingual Tablet Sublingual (Nitrostat)Indicat ions:Atheroscleros is of [place] coronary artery of [place] heart with angina pectoris (HCC) Place 1 [...] 180 days 1 Each 1 3 Active traMADol HCl 50 MG Oral Tablet (Ultram)Indication s:Chronic pain syndrome,MEDICATIO N USE AGREEMENT Take 1 Tablet by mouth in the morning and 1 Tablet at noon and 1 Tablet before bedtime. 90 Tablet 0 3 Active Atorvastatin Calcium 80 MG Oral Tablet (Lipitor)Indicatio ns:Mixed dyslipidemia Take 1 Tablet by mouth in the morning. 90 Tablet 3 3 Active Folic Acid 1 MG Oral TabletIndications: Iron deficiency anemia, unspecified iron deficiency anemia type Take 1 Tablet by mouth in the morning. 90 Tablet 5 3 Active traZODone HCl 100 MG Oral Tablet (Desyrel)Indicatio ns:Persistent insomnia Take 1 Tablet by mouth at bedtime. 90 Tablet 1 3 Active Sertraline HCl 25 MG Oral Tablet (Zoloft)Indication s:Stressful life event affecting family Take 1 Tablet by mouth in the morning. 90 Tablet 1 3 Active Furosemide 40 MG Oral Tablet (Lasix) Take 1 Tablet by mouth once a day on Sunday, Sunday, and Sunday only. 0 3 Active Sulfamethoxazole-T rimethoprim 800-160 MG Oral Tablet (Bactrim DS) Take 1 Tablet by mouth in the morning and 1 Tablet before bedtime. Do all this for 3 days. Until gone. 6 Tablet 0 3 03/19/20 23 Active Metoprolol Succinate ER 100 MG Oral Tablet Extended Release 24 Hour (toPROL XL) Take 1 Tablet by mouth in the morning and 1 Tablet before bedtime. 60 Tablet 5 3 Active Metoprolol Succinate 50 MG Oral Capsule ER 24 Hour Sprinkle Take 75 mg by mouth in the morning and 75 mg before bedtime. 0 03/16/20 23 Discontinued documented as of this encounter (statuses as of 03/19/2023) Active Problems Problem Noted Date Mitral valve insufficiency 03/16/2023 Atherosclerosis of [place] co ronary artery of [place] heart with angina pectoris 03/23/2022 Paroxysmal atrial [...] goal < 8% 014 Coronary atherosclerosis of [place] coron андрей artery 02/21/2012 S/P angioplasty with stent 02/21/2012 Overview: Diagnonal #1. [facility] 02/16/12 Mixed dyslipidemia 01/05/2012 Tobacco use [...] episode, moder ate 03/23/2022 03/16/2023 Atherosclerosis of [place] co ronary artery of [place] heart with angina pectoris 09/07/2017 06/27/2018 Inflammation [...] Sign Reading Time Taken Comments Blood Pressure 134/84 03/16/2023 1:47 PM EDT Pulse 113 03/16/2023 1:47 PM EDT Temperature 36.3 C (97.3 F) 03/16/2023 1:47 PM ED T Respiratory Rate 18 03/16/2023 1:47 PM EDT Oxygen Saturation 96% 03/16/2023 1:47 PM EDT Inhaled Oxygen Concentration - - Weight 67.8 kg (149 lb 8 oz) 03/16/2023 1:47 PM EDT Height - - Body Mass Index 30.2 03/02/2023 9:55 AM EDT documented in this encounter Progress Notes * Puma Aguila, Medical Student - 03/16/2023 2:15 PM EDT Images from the original note were not included. Unless the attending has added an attestation supporting use of this note to document a billable service, the signature of the Licensed Professional on this note only acknowledges the presence of thestudent's note within the patient record and the Licensed Professional's note should be referred tofor clinical information and recommendations. History of Present Illness Amalia Baker is a 82 year old female that presents for Hospital Follow-Up 1st hospitalization at [facility] caused by "not breathing." Said she has had this happened before, required defibrillation one year ago. She signed herself out of the hospital and returned a few days after. Her daughter, Yolanda, took her back to the hospital a few days because she "didn't sound right" and signs of altered mental status, including delusions (car being stolen, [place] Ambulates with a walker and cane when she feels weak. Hx of falls. Last fall was 3 weeks ago. Has a necklace to alert others of falls but does not wear it. Today: Denies: SOB, fevers, chills, N/V, constipation, cough Endorses: urinary incontinence, diarrhea Physical Exam Vitals: 03/16/23 1347 Temp: 36.3 C (97.3 F) Pulse: 113 Resp: 18 SpO2: 96% BP: 134/84 Past Medical History: Diagnosis Date Benign neoplasm of colon 08/25/11 diverticulosis sigmoid colon, polyps x2 repeat in 5 years Coronary atherosclerosis of [place] coronary artery Diverticulosis of colon HTN, goal below 140/90 Peptic ulcer bleeding ulcer at 22y.o. MEDICATIONS: Sulfamethoxazole-Trimethoprim 800-160 MG Oral Tablet (Bactrim DS) Furosemide 40 MG Oral Tablet (Lasix) Metoprolol Succinate 50 MG Oral Capsule ER 24 Hour Sprinkle Sertraline HCl 25 MG Oral Tablet (Zoloft) traZODone HCl 100 MG Oral Tablet (Desyrel) Atorvastatin Calcium 80 MG Oral Tablet (Lipitor) Folic Acid 1 MG Oral Tablet traMADol HCl 50 MG Oral Tablet (Ultram) Empagliflozin 25 MG Oral Tablet (Jardiance) metFORMIN HCl 500 MG Oral Tablet (Glucophage) Gabapentin 800 MG Oral Tablet (Neurontin) Lisinopril 10 MG Oral Tablet (Prinivil) hydrOXYzine HCl 10 MG Oral Tablet (Atarax) Fluticasone Propionate 50 MCG/ACT Nasal Suspension Cyanocobalamin (B-12-SL) 1000 MCG SL Tablet Zoster Vac Recomb Adjuvanted 50 MCG/0.5ML Intramuscular Suspension Reconstituted (Shingrix) EpiPen 2-Gualberto 0.3 MG/0.3ML Injection Solution Auto-injector Diclofenac Sodium 1 % External Gel (Voltaren) Nitroglycerin 0.4 MG Sublingual Tablet Sublingual (Nitrostat) Fluconazole 150 MG Oral Tablet (Diflucan) Pseudoephedrine HCl ER 120 MG Oral Tablet Extended Release 12 Hour Oxybutynin Chloride ER 5 MG Oral Tablet Extended Release 24 Hour (Ditropan XL) Accu-Chek Leonora Plus In Vitro Strip (Glucose Blood) BD Swab Single Use Regular Pad OneTouch Delica Lancets 33G Premarin 0.625 MG/GM Vaginal Cream (Estrogens, Conjugated) oxygen IN GAS oxygen IN GAS Blood Glucose Monitoring Suppl (ACCU-CHEK LEONORA PLUS) w/Device KIT EPIPEN 0.3 MG/0.3ML SAURABH VELASQUEZ I have reviewed the following results: Hospital records Assessment and Plan Amalia Baker is a 82 y/o F who presented for f/u from recent hospitalization of acute on chronic diastolic HF. She was found to be in Afib on auscultation today which resulted in cardiology consult for metoprolol dosing, given she is currently BID 75 mg metoprolol. She was encouraged to wear her fall necklace at home. She was prescribed 3 day abx course to ppx any potential UTI regarding urinary incontinence sx. Urine cultures placed today. Please monitor diarrheal sx and inform office if they do not resolve over next few days. * Maddie Aguayo MD - 03/16/2023 2:11 PM EDT Subjective Amalia Baker is a 82 year old female. Chief Complaint Patient presents with Hospital Follow-Up HPI: Here for hospital f/u Admission Mar 06 and then readmission on Mar 11 Discharge (AMA on Mar 07 ) and on Mar 13 Dx : acute on chronic CHF Afib , hx of defib, CAD, stent, CHF, COPD ,hx of smoking, CKD , HTN Moderate to severe MR Taking lasix 40 mg MWF HR still runs 110s , not on anticoagulation due to high risk fall, bleeding, GI issues Pt is aware of high risk stroke with her afib Currently breathing stable , O2 Sat 96 %, no labored breathing Denies CP, leg swelling, palpitation Taking metoprolol succinate 75 mg bid With uncontrolled HR, will increase toprol XL 100 mg bid C/o urinary incontinence which seems worse Also pt's daughter mentioned mild confusion of pt - will get U cx to rule out Empirical treatment with bactrim today Her kidney function is good/stable Type 2 DM : hba1c 8 Taking all her meds Encouraged diet , will f/u with PCP PMH: 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 M48.061 HTN, goal below 140/90 I10 Major depressive disorder F32.9 Mixed dyslipidemia E78.2 Tobacco use disorder F17.200 Coronary atherosclerosis of [place] coronary artery I25.10 S/P angioplasty with stent Z95.820 Type 2 diabetes, HbA1C goal < 8% ([facility]) E11.9 Diabetic polyneuropathy associated with type 2 diabetes mellitus ([facility]) E11.42 Nocturnal hypoxemia G47.34 Centrilobular emphysema ([facility]) J43.2 Major depressive disorder, recurrent, unspecified ([facility]) F33.9 COPD, group B, by GOLD 2017 classification ([facility]) J44.9 Low serum vitamin B12 E53.8 Chronic kidney disease, stage 3a ([facility]) N18.31 Paroxysmal atrial fibrillation ([facility]) I48.0 Atherosclerosis of [place] coronary artery of [place] heart with angina pectoris ([facility]) I25.119 Mitral valve insufficiency I34.0 Current Outpatient Medications Medication Sig Dispense Refill Cyanocobalamin (B-12-SL) [address] 1,000 mcg under the tongue daily. 90 Tab 3 Fluticasone Propionate 50 MCG/ACT Nasal Suspension Administer into each nostril 2 Sprays in the morning. 18.2 mL 3 hydrOXYzine HCl 10 MG Oral Tablet (Atarax) TAKE 1 TABLET BY MOUTH TWICE A DAY NEEDED FOR [id number] Tablet 0 Gabapentin 800 MG Oral Tablet (Neurontin) Take 1 Tablet by mouth in the morning. 90 Tablet 3 Lisinopril 10 MG Oral Tablet (Prinivil) Take 1 Tablet by mouth in the morning. 90 Tablet 3 metFORMIN HCl 500 MG Oral Tablet (Glucophage) Take 1 Tablet by mouth 2 times a day with morning andevening meals. 180 Tablet 3 Empagliflozin 25 MG Oral Tablet (Jardiance) Take 1 Tablet by mouth in the morning. 90 Tablet 1 traMADol HCl 50 MG Oral Tablet [...] day on Sunday, Sunday, and Sunday only. Sulfamethoxazole-Trimethoprim 800-160 MG Oral Tablet (Bactrim DS) Take 1 Tablet by mouth in the morning and 1 Tablet before bedtime. Do all this for 3 days. Until gone. 6 Tablet 0 Metoprolol Succinate ER 100 MG Oral Tablet Extended Release 24 Hour (toPROL XL) Take 1 Tablet by mouth in the morning and 1 Tablet before bedtime. 60 Tablet 5 EPIPEN 0.3 MG/0.3ML IJ EVA One injection into thigh as needed for severe allergic reaction 1 Device 5 Blood Glucose Monitoring Suppl (ACCU-CHEK LEONORA PLUS) w/Device KIT Use 4 times a day to check bloodsugar. 1 Kit 0 oxygen IN GAS 2 L of [...] taking: Reported on 03/16/2023) 42.5 g 5 Accu-Chek Leonora Plus In [...] taking: Reported on 03/16/2023) 30 Tablet 11 Pseudoephedrine HCl ER 120 MG Oral Tablet Extended Release 12 Hour Take 1 Tablet by mouth 2 times aday as needed. Fluconazole 150 MG Oral Tablet (Diflucan) Take 1 Tablet by mouth once as needed. Diclofenac Sodium 1 % External Gel (Voltaren) Apply 2-4 grams to right foot four times daily as needed 150 g 3 Nitroglycerin 0.4 MG Sublingual Tablet Sublingual (Nitrostat) Place 1 Tablet under the tongue every5 minutes as needed for Pain, Chest. up to 3 doses in 15 minutes 25 Tablet 11 EpiPen 2-Gualberto 0.3 MG/0.3ML Injection Solution Auto-injector [...] 60 to 180 days 1 Each 1 Sulfamethoxazole-Trimethoprim 800-160 MG Oral Tablet (Bactrim DS) Take 1 Tablet by mouth in the morning and 1 Tablet before bedtime. Do all this for 4 days. Until gone. 8 Tablet 0 No current facility-administered medications for this visit. Past Medical History: Diagnosis Date Benign neoplasm of colon 08/25/11 diverticulosis sigmoid colon, polyps x2 repeat in 5 years Coronary atherosclerosis of [place] coronary artery Diverticulosis of colon HTN, goal below 140/90 Peptic ulcer bleeding ulcer at 22y.o. Past Surgical History: Procedure Laterality Date COLONOSCOPY W/ LESION REMOVAL, SNARE 08/25/2011 diverticulosis sigmoid colon, polyps x2 repeat in 5 years COLONOSCOPY, DIAGNOSTIC (RECTUM) 08/02/2018 adenomatous polyp, diverticulosis, repeat 5 yrs/COLONOSCOPY FLEXIBLE PROXIMAL DIAGNOSTIC performed by Fidel Craig MD at ENDOSCOPY [facility] DRAIN ARM/ELBOW BONE LESION INTRAVASCULAR STENT, PERC, FIRST VESSEL 02/16/12 Diagnonal #1. [facility] 02/16/12 REMOVAL OF APPENDIX REMOVAL OF TONSILS, UNDER AGE 14 REPAIR RUPTURED ROTATOR CUFF, ACUTE SACROILIAC JOINT INJECT W/GUIDANCE 02/04/2018 INJECTION SACROILIAC JOINT performed by Campos Garcia Cousins, DO at [facility] TOTAL HYSTERECTOMY benign Review of patient's allergies indicates: Allergen Reactions Bee Venom Life threating reaction Morphine And Related vomitting with all types of pain meds Family History Adopted: Yes Problem Relation Age of Onset Breast Cancer Mother 60 Family Status Relation Status Mo at age 60's breast cancer Fa (Not Specified) unknown Social History Socioeconomic History Marital status: Spouse name: Not on file Number of children: 4 Years of education: Not on file Highest education level: Not on file Occupational History 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 Ex . Social Determinants of Health Financial Resource Strain: Not on file Food Insecurity: Not on file Transportation Needs: Not on file Physical Activity: Not on file Stress: Not on file Social Connections: Not on file Intimate Partner Violence: Not on file Housing Stability: Not on file Review of Systems Constitutional: Positive for activity change (better) and fatigue. Negative for appetite change, chills, diaphoresis, fever and unexpected weight change. HENT: Negative for sore throat. Eyes: Negative for visual disturbance. Respiratory: Positive for shortness of breath. Negative for cough, chest tightness and wheezing. Cardiovascular: Negative for chest pain, palpitations and leg swelling. Gastrointestinal: Negative for abdominal distention, abdominal pain, nausea and vomiting. Endocrine: Negative. Genitourinary: Positive for frequency and urgency. Musculoskeletal: Positive for arthralgias. Skin: Negative for color change and pallor. Allergic/Immunologic: Negative for environmental allergies. Neurological: Negative for dizziness, weakness and light-headedness. Mild confusion per daughter Psychiatric/Behavioral: Positive for sleep disturbance (last 2 days since discharge). Negative for agitation, behavioral problems and dysphoric mood. The patient is nervous/anxious. Objective BP 134/84 | Pulse 113 | Temp 36.3 C (97.3 F) | Resp 18 | Wt 67.8 kg (149 lb 8 oz) | SpO2 96% | BMI 30.20 kg/m | BSA 1.68 m Physical Exam Constitutional: General: She is not in acute distress. Appearance: Normal appearance. She is not ill-appearing, toxic-appearing or diaphoretic. HENT: Head: Normocephalic and atraumatic. Nose: Nose normal. Eyes: Extraocular Movements: Extraocular movements intact. Conjunctiva/sclera: Conjunctivae normal. Pupils: Pupils are equal, round, and reactive to light. Cardiovascular: Rate and Rhythm: Tachycardia present. Rhythm irregular. Heart sounds: Murmur heard. Pulmonary: Effort: Pulmonary effort is normal. No respiratory distress. Breath sounds: No stridor. No wheezing, rhonchi or rales. Chest: Chest wall: No tenderness. Abdominal: Palpations: Abdomen is soft. Musculoskeletal: General: Tenderness present. Right lower leg: No edema. Left lower leg: No edema. Neurological: General: No focal deficit present. Mental Status: She is alert and oriented to person, place, and time. Psychiatric: Behavior: Behavior normal. ASSESSMENT/PLAN: Acute on chronic diastolic CHF (congestive heart failure) (HCC) (Primary) - HOME HEALTH REFERRAL OP Paroxysmal atrial fibrillation (HCC) - HOME HEALTH REFERRAL OP Atherosclerosis of [place] coronary artery of [place] heart with angina pectoris ([facility]) Centrilobular emphysema ([facility]) Atherosclerosis of [place] coronary artery of [place] heart without angina pectoris Chronic kidney disease, stage 3a ([facility]) Type 2 diabetes, HbA1C goal < 8% ([facility]) Tobacco use disorder HTN, goal below 140/90 Mitral valve insufficiency, unspecified etiology Urinary incontinence, unspecified type - HOME HEALTH REFERRAL OP - CULTURE, URINE, QUANTITATIVE; Future; Expected date: 03/16/2023 - CULTURE, URINE, QUANTITATIVE Confusion - HOME HEALTH REFERRAL OP - CULTURE, URINE, QUANTITATIVE; Future; Expected date: 03/16/2023 - CULTURE, URINE, QUANTITATIVE Other orders - Sulfamethoxazole-Trimethoprim 800-160 MG Oral Tablet (Bactrim DS); Take 1 Tablet by mouth in the morning and 1 Tablet before bedtime. Do all this for 3 days. Until gone. - Metoprolol Succinate ER 100 MG Oral Tablet Extended Release 24 Hour (toPROL XL); Take 1 Tablet bymouth in the morning and 1 Tablet before bedtime. Check-out note: Please schedule with cardio anytime soon Schedule with home health F/u urine culture Home health for nursing help Bactrim Cont meds Toprol dose - 100 mg bid F/u with cardio, and PCP Maddie Aguayo MD documented in this encounter Nursing Notes * Lynette Holm LPN - 03/16/2023 1:48 PM EDT Pt in today for a hospital follow up. States that she has not slept much the past 2 nights. Is alsoincontinent of urine documented in this encounter Plan of Treatment Upcoming Encounters Date Type Specialty Care Team Description 04/12/2023 Office Visit Family Medicine Amparo Rich, DO [address] [place] [address] 04/19/2023 Office Visit Cardiology Enoch Che, DO [address] [place] [address] Scheduled Procedures Name Priority Associated Diagnoses Date/Ti me COLONOSCOPY FLEXIBLE PROXIMAL DIAGNOSTIC Recall Gastrointestinal hemorrhage with melena History of colon polyps ESOPHAGOGASTRODUODENOSCOPY ( EGD), FLEXIBLE, TRANSORAL, DIAGNOSTIC Recall Gastrointestinal hemorrhage with melena History of colon polyps Scheduled Referrals Name Type Priority Associated Diagnoses Orde r Schedule HOME HEALTH REFERRAL OP Referral Within 10 days (routine) Acute on chronic diastolic CHF (congestive heart failure) (HCC) Paroxysmal atrial fibrillation (HCC) Urinary incontinence, unspecified type Confusion Ordered: 03/16/2023 Health Maintenance Due Date Last Done Comments Alpha-1 Antitrypsin 1958 CKD PHOS USE SMARTSET 54211 1958 Zoster Vaccines (2 of 3) 09/24/2012 [...] Additional history exists CKD HGB USE SMARTSET 94695 08/02/202308/02, 11/18/2021, 07/31/2021, Additional history exists COLONOSCOPY-EVERY 5 YRS AGES 18-100 08/02/2023 08/02/2018, 08/02/2018, 08/25/2011 Diabetic Foot Exam 08/02/2023 08/02/2022, 0 07/21/2021, 10/05/2020, Additional history exists O2 ASSESSMENT COMPLETED IN PAST YEAR FOR COPD 03/16/2024 03/16/2023 DTaP,Tdap,and Td Vaccines (2 - Td or Tdap) 10/05/2024 10/05/2014, 03/02/2008 LUNG CANCER SCREENING - USE SMARTSET 81818 Completed 08/12/2019, 06/07/2019, 12/19/2018, Additional history exists [...] Procedure Name Priority Date/Time Associated Diagnosis Comments CULTURE, URINE, QUANTITATIVE Routine 03/16/2023 2:56 PM EDT Urinary incontinence, unspecified type Confusion documented in this encounter Results * (ABNORMAL) CULTURE, URINE, QUANTITATIVE (03/16/2023 2:56 PM EDT) Culture Growth 10,000 to 100,000 colonies/mL Klebsiella pneumoniae(A) MICROBROTH DILUTIONS 03/18/2023 1:54 PM EDT LAB[facility] [place] Urine Urine specimen / Unknown Non-blood Collection / Unknown 03/16/2023 2:56 PM EDT 03/16/2023 2:56 PM EDT Narrative LABORATORY [facility] - 03/18/2023 1:54 PM EDT <10,000 colonies/ml mixed normal genesis Organism Antibiotic Method Susceptibility Klebsiella pneumoniae Ampicillin/Sulbactam MICROBROTH DILUTIONS 8: Susceptible Klebsiella pneumoniae Cefazolin MICROBROTH DILUTIONS <=4: Susceptible Klebsiella pneumoniae Cefepime MICROBROTH DILUTIONS <=1: Susceptible Klebsiella pneumoniae Ceftriaxone MICROBROTH DILUTIONS <=1: Susceptible Klebsiella pneumoniae Ciprofloxacin MICROBROTH DILUTIONS <=0.25: Susceptible Comment:Due to jessica us side effects, the FDA has advised against using Ciprofloxacin to treat uncomplicated UTIs and respiratory tract infections unless there are no alternative treatment options. Klebsiella pneumoniae Gentamicin MICROBROTH DILUTIONS <=1: Susceptible Klebsiella pneumoniae Nitrofurantoin MICROBROTH DILUTIONS 64: Intermediate Klebsiella pneumoniae Piperacillin Tazobactam MICROBROTH DILUTIONS 8: Susceptible Klebsiella pneumoniae Trimeth/Sulfamethoxazole MICROBROTH DILUTIONS <=20: Susceptible Maddie Aguayo MD LAB MICRO - GENERAL ORDERABLES LABORATORY [facility] [address] [place] [address] documented in this encounter Visit Diagnoses Diagnosis Acute on chronic diastolic CHF (congestive heart failure) (HCC)- Primary Acute on chronic diastolic heart failure Paroxysmal atrial fibrillation (HCC) Atrial fibrillation Atherosclerosis of [place] coronary artery of [place] heart with angina pectoris (HCC) Centrilobular emphysema (HCC) Other emphysema Atherosclerosis of [place] coronary artery of [place] heart without angina pectoris Chronic kidney disease, stage 3a (HCC) Type 2 diabetes, HbA1C goal < 8% (HCC) Type II or unspecified type diabetes mellitus without mention of complication, not stated as uncontrolled Tobacco use disorder HTN, goal below 140/90 Unspecified essential hypertension Mitral valve insufficiency, unspecified etiology Urinary incontinence, unspecified type Confusion Unspecified psychosis documented in this encounter Care Teams Home Improvement Advisor Relationship Specialty Start Date End Date Amparo Rich, [address] [place] [address] PCP - General Family Medicine 02/21/22 documented as of this encounter
--- OUTSIDE RECORDS SUMMARY | 2023-05-26 07:29 | External Medical Summary | Summary of Care ---
Author Name Unknown Organization [facility] Address [address] [place] [address] Phone [phone] Care Team Providers Care Eyeglass Frame Truer Name Role Phone KingsleyAmparo jackson Primary Care Provider [phone] Encounter Details Date Type Department Care Team Description 03/19/2023 Telephone [facility] [address] [place] [address] Maddie Aguayo MD [address] [place] [address] Allergies Active Allergy Reactions Severity [...] diabetes, HbA1C goal < 8% ([facility]) Use 4 times a day to check [...] B, by GOLD 2017 classification ([facility]) Use 2 L/min(Oxygen) as directed continuous. concentrated [...] diabetes, HbA1C goal < 8% ([facility]) Test blood sugar 4 times a day 100 Strip 5 07/27/2021 Active BD Swab Single Use Regular Pad Use prior to testing 100 Each 07/27/2021 Active OneTouch Delica Lancets 33GIndications:Type 2 diabetes, HbA1C goal < 8% ([facility]) Use to test Blood 100 Each 5 [...] MG Sublingual Tablet Sublingual (Nitrostat)Indicatio ns:Atherosclerosis of [place] coronary artery of [place] heart with angina pectoris (HCC) Place 1 [...] Date Mitral valve insufficiency 03/16/2023 Atherosclerosis of [place] co ronary artery of [place] heart with angina pectoris 03/23/2022 Paroxysmal atrial [...] goal < 8% 014 Coronary atherosclerosis of [place] coron андрей artery 02/21/2012 S/P angioplasty with [...] episode, moder ate 03/23/2022 03/16/2023 Atherosclerosis of [place] co ronary artery of [place] heart with angina pectoris 09/07/2017 06/27/2018 Inflammation [...] Miscellaneous Notes * Telephone Encounter - SAMIR Johnson - [...] Family Medicine Amparo Rich, DO [address] [facility] [address] 04/19/2023 Office Visit Cardiology Enoch Che, [address] [place] [address] Scheduled Procedures Name Priority Associated Diagnoses Date/Ti me COLONOSCOPY FLEXIBLE PROXIMAL DIAGNOSTIC Recall Gastrointestinal hemorrhage with melena History of colon polyps ESOPHAGOGASTRODUODENOSCOPY ( EGD), FLEXIBLE, TRANSORAL, DIAGNOSTIC Recall Gastrointestinal hemorrhage with melena History of colon polyps Health Maintenance Due Date Last Done Comments Alpha-1 Antitrypsin 1958 CKD PHOS USE SMARTSET 18964 1960 Zoster Vaccines (2 of 3) 09/24/2012 [...] Additional history exists CKD HGB USE SMARTSET 31983 08/02/202308/02, 11/18/2021, 07/31/2021, Additional history exists COLONOSCOPY-EVERY 5 YRS AGES 18-100 08/02/2023 08/02/2018, 08/02/2018, 08/25/2011 Diabetic Foot Exam 08/02/2023 08/02/2022, 0 07/21/2021, 10/05/2020, Additional history exists O2 ASSESSMENT COMPLETED IN PAST YEAR FOR COPD 03/16/2024 03/16/2023 DTaP,Tdap,and Td Vaccines (2 - Td or Tdap) 10/05/2024 10/05/2014, 03/02/2008 LUNG CANCER SCREENING - USE SMARTSET 18613 Completed 08/12/2019, 06/07/2019, 12/19/2018, Additional history exists [...] filedocumented as of this encounter Care Teams Eyeglass Frame Truer Relationship Specialty Start Date End Date Amparo Rich, DO [address] [place] [address] PCP - General Family Medicine 02/21/22 documented as of this encounter
--- OUTSIDE RECORDS SUMMARY | 2023-05-26 07:29 | External Medical Summary | Summary of Care ---
Author Name Unknown Organization [facility] Address [address] [facility] [place] [address] Phone [phone] Care Team Providers Care School Bus Dispatcher Name Role Phone Amparo Rich Primary Care Provider Reason for Visit * Reason Onset Date Comments Hospital Follow-Up 03/13/2023 Encounter Details Date Type Department Care Team Description 03/13/2023 Telephone Cardiology, [facility] [address] [place] [address] Lyn Pond CRNP [address] [facility] [place] [address] Hospital Follow-Up Allergies Active Allergy Reactions Severity Noted Date Comments Bee Venom High 11/17/2011 Life threating reaction Morphine And Related 11/04/2002 vomitting with all types of pain meds documented as of this encounter (statuses as of 03/13/2023) Medications Medication Sig Dispensed Refills Start Date End Date Status EPIPEN 0.3 MG/0.3ML IJ DEVIIndications:Bee sting One injection into thigh as needed for severe allergic reaction 1 Device 5 10/08/2013 Active Blood Glucose Monitoring Suppl (ACCU-CHEK LEONORA PLUS) w/Device KITIndications:Type 2 diabetes, HbA1C goal < 8% ([facility]) Use 4 times a day to check [...] group B, by GOLD 2017 classification ([facility]) Use 2 L/min(Oxygen) as directed continuous. concentrated and home fill with portability 1 Each 0 01/21/2021 Active Additional Information Patient not taking.Reported on 01/31/2023 Premarin 0.625 MG/GM Vaginal Cream (Estrogens, Conjugated)Indicatio ns:Postmenopausal atrophic vaginitis Administer into the vagina 0.5 g before bedtime. As directed.. 42.5 g 5 07/21/2021 Active Accu-Chek Leonora Plus In Vitro Strip (Glucose Blood)Indications:Ty pe 2 diabetes, HbA1C goal < 8% ([facility]) Test blood sugar 4 times a day 100 Strip 5 07/27/2021 Active BD Swab Single Use Regular Pad Use prior to testing 100 Each 07/27/2021 Active OneTouch Delica Lancets 33GIndications:Type 2 diabetes, HbA1C goal < 8% ([facility]) Use to test Blood 100 Each 5 [...] Active Amoxicillin-Pot Clavulanate 875-125 MG Oral Tablet (Augmentin)Indicatio ns:COPD, group B, by GOLD 2017 classification ([facility]),Acute cough,Rhinorrhea,Fat igue, unspecified type Take 1 Tablet by mouth in the morning and 1 Tablet before bedtime. 20 Tablet 0 03/02/2023 Active Azithromycin 250 MG Oral Tablet (Zithromax)Indicatio ns:COPD, group B, by GOLD 2017 classification ([facility]),Acute cough,Rhinorrhea,Fat igue, unspecified type Take 2 tabs by mouth on the first day, then 1 tab daily on days two through five 6 Tablet 0 03/02/2023 Active documented as of this encounter (statuses as of 03/13/2023) Active Problems Problem Noted Date Major depressive [...] stent 02/21/2012 Overview: Diagnonal #1. [facility] 02/16/12 Mixed dyslipidemia 01/05/2012 Tobacco use disorder 01/05/2012 Major depressive disorder 01/10/2011 Overview: ICD-10 update of inactive term Thoracic and lumbosacral neuritis 2007 Lumbosacral spondylosis 08/05/2007 Spinal stenosis of lumbar region without neurogenic claudication 08/05/2007 HTN, goal below 140/90 documented as of this encounter (statuses as of 03/13/2023) Resolved Problems Problem Noted Date Resolved Date [...] as of this encounter (statuses as of 03/13/2023) Immunizations Name Administration Dates Next Due COVID-19 [...] encounter Miscellaneous Notes * Telephone Encounter - MAMADOU Koroma - 03/13/2023 11:34 AM EDT Patient admitted to [facility] on 03/11. Anticipate Discharge within the next 24 to 48 hours. Scheduled to See Dr. Che on 04/19/2023-- keep appt. IMPRESSION: 82-year-old female with past medical history of chronic diastolic CHF, paroxysmal likely persistentatrial fibrillation, and valvular heart disease with moderate severe MR. Represented to [facility] 48 hours after prior discharge with acute on chronic diastolic CHF after leaving AMA prior to medication optimization. Patient appears well compensated from a volume standpoint. Likely on the dry side given increase inscr this am. EKG/telemetry with improved rate controlled AFIB. PLAN: Euvolemic on exam- Hold Lasix today, does not normally require diuretic therapy at home. Will have patient continue 40 mg daily every MWF only. BMP 1 week after discharge. Continue Jardiance 25 mg daily for diastolic dysfunction and diabetes management BP has been labile/trending on lower side-- maintained on lisinopril. Consider addition of spironolactone 12.5 mg daily as an outpatient. Rate controlled AFIB-- asymptomatic. Suspect atrial fibrillation will remain persistent with goals being rate control and management of volume status. Not on AC due to fall risk (dc'd fall 2021). Increase metoprolol succinate to 75 mg BID. documented in this encounter Plan of Treatment Upcoming Encounters Date Type Specialty Care Team Description 03/16/2023 Office Visit Family Medicine Maddie Aguayo MD [facility] [address], [place] [id number] 04/12/2023 Office Visit Family Medicine Amparo Rich DO [address] [facility] [place] [address] 04/19/2023 Office Visit Cardiology Enoch Che, DO [address] [place] [address] Scheduled Procedures Name Priority Associated Diagnoses Date/Ti me COLONOSCOPY FLEXIBLE PROXIMAL DIAGNOSTIC Recall Gastrointestinal hemorrhage with melena History of colon polyps ESOPHAGOGASTRODUODENOSCOPY ( EGD), FLEXIBLE, TRANSORAL, DIAGNOSTIC Recall Gastrointestinal hemorrhage with melena History of colon polyps Health Maintenance Due Date Last Done Comments Alpha-1 Antitrypsin 1958 CKD PHOS USE SMARTSET 60419 1958 Zoster Vaccines (2 of 3) 09/24/2012 [...] Additional history exists CKD HGB USE SMARTSET 42270 08/02/202308/02, 11/18/2021, 07/31/2021, Additional history exists COLONOSCOPY-EVERY 5 YRS AGES 18-100 08/02/2023 08/02/2018, 08/02/2018, 08/25/2011 Diabetic Foot Exam 08/02/2023 08/02/2022, 0 07/21/2021, 10/05/2020, Additional history exists O2 ASSESSMENT COMPLETED IN PAST YEAR FOR COPD 03/02/2024 03/02/2023 DTaP,Tdap,and Td Vaccines (2 - Td or Tdap) 10/05/2024 10/05/2014, 03/02/2008 LUNG CANCER SCREENING - USE SMARTSET 13282 Completed 08/12/2019, 06/07/2019, 12/19/2018, Additional history exists [...] filedocumented as of this encounter Care Teams School Bus Dispatcher Relationship Specialty Start Date End Date Amparo Rich, [address] [place] [address] PCP - General Family Medicine 02/21/22 documented as of this encounter
--- OUTSIDE RECORDS SUMMARY | 2023-05-26 07:29 | External Medical Summary | Summary of Care ---
Author Name Unknown Organization [facility] Address [address] [place] [address] Phone [phone] Care Team Providers Care Lay Out Technician Name Role Phone HarrisAmparo valverde Primary Care Provider [phone] Reason for Visit * Reason Onset Date Comments Other 03/16/2023 Encounter Details Date Type Department Care Team Description 03/16/2023 Telephone [facility] [address] [place] [address] Maddie Aguayo MD [address] [place] [address] Other Allergies Active Allergy Reactions [...] diabetes, HbA1C goal < 8% ([facility]) Use 4 times a day to check [...] B, by GOLD 2017 classification ([facility]) Use 2 L/min(Oxygen) as directed continuous. concentrated [...] diabetes, HbA1C goal < 8% ([facility]) Test blood sugar 4 times a day 100 Strip 5 07/27/2021 Active BD Swab Single Use Regular Pad Use prior to testing 100 Each 07/27/2021 Active OneTouch Delica Lancets 33GIndications:Type 2 diabetes, HbA1C goal < 8% ([facility]) Use to test Blood 100 Each 5 [...] MG Sublingual Tablet Sublingual (Nitrostat)Indicatio ns:Atherosclerosis of [place] coronary artery of [place] heart with angina pectoris (HCC) Place 1 [...] Date Mitral valve insufficiency 03/16/2023 Atherosclerosis of [place] co ronary artery of [place] heart with angina pectoris 03/23/2022 Paroxysmal atrial [...] goal < 8% 014 Coronary atherosclerosis of [place] coron андрей artery 02/21/2012 S/P angioplasty with stent 02/21/2012 Overview: Diagnonal #1. [facility] 02/16/12 Mixed dyslipidemia 01/05/2012 Tobacco [...] episode, moder ate 03/23/2022 03/16/2023 Atherosclerosis of [place] co ronary artery of [place] heart with angina pectoris 09/07/2017 06/27/2018 Inflammation [...] Office Visit Family Medicine [facility]paro Rich, [address] [facility] [address] 04/19/2023 Office Visit Cardiology Enoch Che, [address] [place] [address] Scheduled Procedures Name Priority Associated Diagnoses Date/Ti me COLONOSCOPY FLEXIBLE PROXIMAL DIAGNOSTIC Recall Gastrointestinal hemorrhage with melena History of colon polyps ESOPHAGOGASTRODUODENOSCOPY ( EGD), FLEXIBLE, TRANSORAL, DIAGNOSTIC Recall Gastrointestinal hemorrhage with melena History of colon polyps Health Maintenance Due Date Last Done Comments Alpha-1 Antitrypsin 1958 CKD PHOS USE SMARTSET 57691 1958 Zoster Vaccines (2 of 3) 09/24/2012 [...] Additional history exists CKD HGB USE SMARTSET 98826 08/02/202308/02, 11/18/2021, 07/31/2021, Additional history exists COLONOSCOPY-EVERY 5 YRS AGES 18-100 08/02/2023 08/02/2018, 08/02/2018, 08/25/2011 Diabetic Foot Exam 08/02/2023 08/02/2022, 0 07/21/2021, 10/05/2020, Additional history exists O2 ASSESSMENT COMPLETED IN PAST YEAR FOR COPD 03/16/2024 03/16/2023 DTaP,Tdap,and Td Vaccines (2 - Td or Tdap) 10/05/2024 10/05/2014, 03/02/2008 LUNG CANCER SCREENING - USE SMARTSET 57682 Completed 08/12/2019, 06/07/2019, 12/19/2018, Additional history exists [...] filedocumented as of this encounter Care Teams Lay Out Technician Relationship Specialty Start Date End Date Amparo Rich, DO [address] [place] [address] PCP - General Family Medicine 02/21/22 documented as of this encounter
--- OUTSIDE RECORDS SUMMARY | 2023-05-26 07:29 | External Medical Summary | Summary of Care ---
Author Name Unknown Organization [facility] Address [address] [facility] [place] [address] Phone [phone] Care Team Providers Care Compressed Gases Tester Name Role Phone Casey Rich DO Primary Care Provider [phone] Reason for Visit * Reason Onset Date Comments Medication Refill 02/13/2023 Encounter Details Date Type Department Care Team Description 02/13/2023 Refill [facility] [address] [place] [address] Casey Rich [address] [place] [address] Stressful life event affecting family Allergies Active Allergy Reactions Severity Noted Date Comments Bee Venom High 11/17/2011 Life threating reaction Morphine And Related 11/04/2002 vomitting with all types of pain meds documented as of this encounter (statuses as of 02/14/2023) Medications Medication Sig Dispensed Refills Start Date End Date Status EPIPEN 0.3 MG/0.3ML IJ DEVIIndications:Bee sting One injection into thigh as needed for severe allergic reaction 1 Device 5 10/08/2013 Active Blood Glucose Monitoring Suppl (ACCU-CHEK [place] PLUS) w/Device KITIndications:Type 2 diabetes, HbA1C goal < 8% ([facility]) Use 4 times a day to check [...] group B, by GOLD 2017 classification ([facility]) Use 2 L/min(Oxygen) as directed continuous. concentrated [...] ype 2 diabetes, HbA1C goal < 8% ([facility]) Test blood sugar 4 times a day 100 Strip 5 07/27/2021 Active BD Swab Single Use Regular Pad Use prior to testing 100 Each 07/27/2021 Active OneTouch Delica Lancets 33GIndications:Type 2 diabetes, HbA1C goal < 8% ([facility]) Use to test Blood 100 Each 5 [...] MG Sublingual Tablet Sublingual (Nitrostat)Indicati ons:Atherosclerosis of [place] coronary artery of [place] heart with angina pectoris (HCC) Place 1 [...] the morning. 90 Tablet 1 02/14/2023 Active Sertraline HCl 25 MG Oral Tablet (Zoloft)Indications :Stressful life event affecting family Take 1 Tablet by mouth in the morning. 90 Tablet 3 08/02/2022 02/14/20 23 Discontinu ed(Refill) documented as of this encounter (statuses as of 02/14/2023) Active Problems Problem Noted Date Major depressive disorder, single episod e, moderate 03/23/2022 Atherosclerosis of [place] co ronary artery of [place] heart with angina pectoris 03/23/2022 Paroxysmal atrial [...] goal < 8% 014 Coronary atherosclerosis of [place] coron андрей artery 02/21/2012 S/P angioplasty with stent 02/21/2012 Overview: Diagnonal #1. [facility] 02/16/12 Mixed dyslipidemia 01/05/2012 Tobacco use disorder 01/05/2012 Major depressive disorder 01/10/2011 Overview: ICD-10 update of inactive term Thoracic and lumbosacral neuritis 2007 Lumbosacral spondylosis 08/05/2007 Spinal stenosis of lumbar region without neurogenic claudication 08/05/2007 HTN, goal below 140/90 documented as of this encounter (statuses as of 02/14/2023) Resolved Problems Problem Noted Date Resolved Date Atherosclerosis of [place] co ronary artery of [place] heart with angina pectoris 09/07/2017 06/27/2018 Inflammation [...] as of this encounter (statuses as of 02/14/2023) Immunizations Name Administration Dates Next Due COVID-19 [...] encounter Miscellaneous Notes * Telephone Encounter - Ortiz Pritchett [facility] - 02/14/2023 12:32 PM EDT Signed Prescriptions: Disp Refills Sertraline HCl 25 MG Oral Tablet (Zoloft) 90 Tab*1 Sig: Take 1 Tablet by mouth in the morning.Authorizing Provider: CASEY RICH User: ORTIZ PRITCHETT * Telephone Encounter - Ortiz Pritchett [facility] - 02/14/2023 12:32 PM EDT Patient is switching pharmacies. Reissued balance of refills on current prescription(s) to [facility][id number] [facility] Thank you, Ortiz Pritchett PharmD, GAY Clinical Pharmacist [facility] ([facility]) (formerly Telepharmacy) 02/14/23 12:32 PM [phone] * Telephone Encounter - TASNEEM Yap - 02/13/2023 5:06 PM EDT Please reroute Rx to [facility] #[id number] [facility]. Pending Prescriptions: Disp Refills Sertraline HCl 25 MG Oral Tablet (Zoloft) 90 Tab*3 Sig: Take 1 Tablet by mouth in the morning. Last Visit: 12/25/2022 (in office), Visit date not found (telemedicine) 04/12/2023 If no future appointments scheduled, and last appointment is greater than a year ago, please schedule patient for a follow-up appointment Last date the medication was ordered: 08/02/2022 Patient Phone Numbers Labs: Lab Results Component Value Date/Time CREAT 1.1 (H) 12/25/2022 11:01 AM CREAT 0.9 03/24/2020 08:32 AM POTASSIUM 4.3 12/25/2022 11:01 AM POTASSIUM 4.4 02/24/2020 07:34 AM TSH 1.79 08/23/2020 04:06 PM TSH 1.79 02/24/2020 07:34 AM LDLCALC 150 (H) 12/25/2022 11:01 AM LDLCALC 158 (H) 02/24/2020 07:34 AM LDLDIRECT 202 (H) 11/18/2021 10:10 AM LDLDIRECT NOT APPLICABLE 02/24/2020 07:34 AM LDLDIRECT 109 02/11/2013 09:45 AM ALT 15 08/02/2022 01:26 PM ALT 13 02/24/2020 07:34 AM HGBA1C 8.0 (H) 12/25/2022 11:01 AM HGBA1C 7.3 (H) 02/24/2020 07:34 AM documented in this encounter Plan of Treatment Upcoming Encounters Date Type Specialty Care Team Description 04/12/2023 Office Visit Family Medicine [facility] Rich DO [address] [facility] [address] 04/19/2023 Office Visit Cardiology Enoch Che DO [address] [place] [address] Scheduled Procedures Name Priority Associated Diagnoses Date/Ti me COLONOSCOPY FLEXIBLE PROXIMAL DIAGNOSTIC Recall Gastrointestinal hemorrhage with melena History of colon polyps ESOPHAGOGASTRODUODENOSCOPY ( EGD), FLEXIBLE, TRANSORAL, DIAGNOSTIC Recall Gastrointestinal hemorrhage with melena History of colon polyps Health Maintenance Due Date Last Done Comments Alpha-1 Antitrypsin 1958 CKD PHOS USE SMARTSET 22045 1960 Zoster Vaccines (2 of 3) 09/24/2012 [...] Additional history exists CKD HGB USE SMARTSET 50748 08/02/202308/02, 11/18/2021, 07/31/2021, Additional history exists COLONOSCOPY-EVERY 5 YRS AGES 18-100 08/02/2023 08/02/2018, 08/02/2018, 08/25/2011 DIABETES-FOOT EXAM 08/02/2023 08/02/2022, 0 07/21/2021, 10/05/2020, Additional history exists O2 ASSESSMENT COMPLETED IN PAST YEAR FOR COPD 02/01/2024 01/31/2023 DTaP,Tdap,and Td Vaccines (2 - Td or Tdap) 10/05/2024 10/05/2014, 03/02/2008 LUNG CANCER SCREENING - USE SMARTSET 60120 Completed 08/12/2019, 06/07/2019, 12/19/2018, Additional history exists [...] as of this encounter Visit Diagnoses Diagnosis Stressful life event affecting family Other family disruption documented in this encounter Care Teams Compressed Gases Tester Relationship Specialty Start Date End Date Casey Rich, DO [address] [place] [address] PCP - General Family Medicine 02/21/22 documented as of this encounter
--- OUTSIDE RECORDS SUMMARY | 2023-05-26 07:29 | External Medical Summary | Summary of Care ---
Author Name Unknown Organization [facility] Address [address] [place] [address] Phone [phone] Care Team Providers Care Certified Surgical Tech/First Assistant Name Role Phone KingsleyAmparo jackson Primary Care Provider [phone] Encounter Details Date Type Department Care Team Description 03/16/2023 Telephone [facility] [address] [place] [address] Maddie Aguayo MD [address] [place] [address] Allergies Active Allergy Reactions Severity Noted Date Comments Bee Venom High 11/17/2011 Life threating reaction Morphine And Related 11/04/2002 vomitting with all types of pain meds documented as of this encounter (statuses as of 03/16/2023) Medications Medication Sig Dispensed Refills Start Date End Date Status EPIPEN 0.3 MG/0.3ML IJ DEVIIndications:Bee sting One injection into thigh as needed for severe allergic reaction 1 Device 5 10/08/2013 Active Blood Glucose Monitoring Suppl (ACCU-CHEK SOPHIA PLUS) w/Device KITIndications:Type 2 diabetes, HbA1C goal < 8% ([facility]) Use 4 times a day to [...] B, by GOLD 2017 classification ([facility]) Use 2 L/min(Oxygen) as directed continuous. [...] diabetes, HbA1C goal < 8% ([facility]) Test blood sugar 4 times a day 100 Strip 5 07/27/2021 Active BD Swab Single Use Regular Pad Use prior to testing 100 Each 07/27/2021 Active OneTouch Delica Lancets 33GIndications:Type 2 diabetes, HbA1C goal < 8% ([facility]) Use to test Blood 100 Each [...] MG Sublingual Tablet Sublingual (Nitrostat)Indicatio ns:Atherosclerosis of [place] coronary artery of [place] heart with angina pectoris (HCC) Place 1 [...] as of this encounter (statuses as of 03/16/2023) Active Problems Problem Noted Date Mitral valve insufficiency 03/16/2023 Atherosclerosis of [place] co ronary artery of [place] heart with angina pectoris 03/23/2022 Paroxysmal atrial [...] goal < 8% 014 Coronary atherosclerosis of [place] coron андрей artery 02/21/2012 S/P angioplasty with stent 02/21/2012 Overview: Diagnonal #1. [facility] 02/16/12 Mixed dyslipidemia 01/05/2012 Tobacco use disorder 01/05/2012 Major depressive disorder 01/10/2011 Overview: ICD-10 update of inactive term Thoracic and lumbosacral neuritis 2007 Lumbosacral spondylosis 08/05/2007 Spinal stenosis of lumbar region without neurogenic claudication 08/05/2007 HTN, goal below 140/90 documented as of this encounter (statuses as of 03/16/2023) Resolved Problems Problem Noted Date Resolved Date Major depressive disorder, single episode, moder ate 03/23/2022 03/16/2023 Atherosclerosis of [place] co ronary artery of [place] heart with angina pectoris 09/07/2017 06/27/2018 Inflammation [...] as of this encounter (statuses as of 03/16/2023) Immunizations Name Administration Dates Next Due COVID-19 [...] Family Medicine Amparo Rich, [facility] [address] [facility] [id number] 04/19/2023 Office Visit Cardiology Enoch Che, DO [address] [place] [address] Scheduled Procedures Name Priority Associated Diagnoses Date/Ti me COLONOSCOPY FLEXIBLE PROXIMAL DIAGNOSTIC Recall Gastrointestinal hemorrhage with melena History of colon polyps ESOPHAGOGASTRODUODENOSCOPY ( EGD), FLEXIBLE, TRANSORAL, DIAGNOSTIC Recall Gastrointestinal hemorrhage with melena History of colon polyps Health Maintenance Due Date Last Done Comments Alpha-1 Antitrypsin 1958 CKD PHOS USE SMARTSET 53989 1960 Zoster Vaccines (2 of 3) 09/24/2012 [...] Additional history exists CKD HGB USE SMARTSET 72202 08/02/202308/02, 11/18/2021, 07/31/2021, Additional history exists COLONOSCOPY-EVERY 5 YRS AGES 18-100 08/02/2023 08/02/2018, 08/02/2018, 08/25/2011 Diabetic Foot Exam 08/02/2023 08/02/2022, 0 07/21/2021, 10/05/2020, Additional history exists O2 ASSESSMENT COMPLETED IN PAST YEAR FOR COPD 03/02/2024 03/16/2023 DTaP,Tdap,and Td Vaccines (2 - Td or Tdap) 10/05/2024 10/05/2014, 03/02/2008 LUNG CANCER SCREENING - USE SMARTSET 69760 Completed 08/12/2019, 06/07/2019, 12/19/2018, Additional history exists [...] filedocumented as of this encounter Care Teams Certified Surgical Tech/First Assistant Relationship Specialty Start Date End Date Amparo Rich, [address] [facility] [address] PCP - General Family Medicine 02/21/22 documented as of this encounter
--- OUTSIDE RECORDS SUMMARY | 2023-05-26 07:30 | External Medical Summary ---
Author Name Unknown Address Unknown Organization [id number]:[facility] - [address] [place] [address] Laboratory Report Ordering Provider Test Date Status CASEYBIANKA 12/25/2022 11:01:47 Final Observation Date Value Abnormality Reference (Units ) Status Triglyceride 12/25/2022 11:01:47 309 Above high normal <=174 (mg/dL) Final Triglyceride Reference Range s (mg/dL):
<150 Acceptable
150-174 Borderline high
175-499 High
>=500 Very high Cholesterol 12/25/2022 11:01:47 253 Above high normal <200 (mg/dL) Final Total Cholesterol Reference Ranges (mg/dL):
<200 Desirable
200-239 Borderline high
>=240 High HDL 12/25/2022 11:01:47 41 Below low normal >49 (mg/dL) Final HDL Cholesterol Reference Ra nges (mg/dL):
>=60 High (Desirable)
<50 Low (Undesirable) For Females
<40 Low (Undesirable) For Males NON-HDL CHOLESTEROL 12/25/2022 11:01:47 212 Above high normal <=159 (mg/dL) Final Non-HDL Cholesterol Referenc e Range (mg/dL):
<100 Target level for high risk ASCVD patient
<130 Optimal for general population
130-159 Near optimal for general population
160-189 Borderline High
190-219 High
>=220 Very High LDL, (calculated) 12/25/2022 11:01:47 150 Above high n ormal <=129 (mg/dL) Final LDL Cholesterol Reference Ra nges (mg/dL):
<70 Target level for high risk ASCVD patient
<100 Optimal for general population
100-129 Near optimal for general population
130-159 Borderline high
160-189 High
>=190 Very high Performing Location LAB[facility]ATORY [facility] - [address] [facility] [address]
--- OUTSIDE RECORDS SUMMARY | 2023-05-26 07:30 | External Medical Summary ---
Author Name Unknown Address Unknown Organization [id number]:[facility] - [facility] [address] [place] [address] Laboratory Report Ordering Provider Test Date Status BIANKA PEÑA 12/25/2022 11:01:47 Final Observation Date Value Abnormality Reference (Units ) Status BUN 12/25/2022 11:01:47 10 6-20 (mg/dL) Final Creatinine 12/25/2022 11:01:47 1.1 Above high normal 0.5-1.0 (mg/dL) Final Glomerular filtration rate/1.73 sq M.predicted [Volume Rate/Area] in Serum, Plasma or Blood by Creatinine-based formula (CKD-EPI) 12/25/2022 11:01:47 50 Below low normal >=60 (mL/min) Final eGFR is calculated based on the CKD-EPI 2020 equation SODIUM 12/25/2022 11:01:47 140 135-146 (m mol/L) Final Potassium 12/25/2022 11:01:47 4.3 3.5-5.1 (m mol/L) Final Cl 12/25/2022 11:01:47 106 98-107 (mm ol/L) Final CO2 12/25/2022 11:01:47 21 Below low normal 22- 32 (mmol/L) Final Anion gap 12/25/2022 11:01:47 13 7-15 (mmol /L) Final Glucose 12/25/2022 11:01:47 180 Above high normal 70 -120 (mg/dL) Final Calcium 12/25/2022 11:01:47 9.0 8.4-10.2 ( mg/dL) Final Performing Location LAB[facility]ORY [facility] - [facility] [address] [place] [address]
--- OUTSIDE RECORDS SUMMARY | 2023-05-26 07:30 | External Medical Summary | Summary of Care ---
Author Name Unknown Organization [facility] Address [address] [place] [address] Phone [phone] Care Team Providers Care Pediatric Rn Name Role Phone Amparo Rich DO Primary Care Provider [phone] Reason for Visit * Reason Onset Date Comments Advice 12/28/2022 Encounter Details Date Type Department Care Team Description 12/28/2022 Telephone [facility] [address] [place] [address] Amparo Rich DO [address] [place] [address] Advice Allergies Active Allergy Reactions Severity Noted Date Comments Bee Venom High 11/17/2011 Life threating reaction Morphine And Related 11/04/2002 vomitting with all types of pain meds documented as of this encounter (statuses as of 01/08/2023) Medications Medication Sig Dispensed Refills Start Date End Date Status EPIPEN 0.3 MG/0.3ML IJ DEVIIndications:Bee sting One injection into thigh as needed for severe allergic reaction 1 Device 5 10/08/2013 Active Blood Glucose Monitoring Suppl (ACCU-CHEK SOPHIA PLUS) w/Device KITIndications:Type 2 diabetes, HbA1C goal < 8% ([facility]) Use 4 times a day to check blood sugar. 1 Kit 0 04/24/2019 Active Cyanocobalamin (B-12-SL) 1000 MCG SL TabletIndications:Lo w serum vitamin B12 Place 1,000 mcg under the tongue daily. 90 Tab 3 03/02/2020 Active oxygen IN GASIndications:Noctu rnal hypoxemia 2 L of oxygen while sleeping 1 Each 0 01/20/2021 Active oxygen IN GASIndications:Noctu rnal hypoxemia,COPD, group B, by GOLD 2017 classification ([facility]) Use 2 L/min(Oxygen) as directed continuous. concentrated and home fill with portability 1 Each 0 01/21/2021 Active Premarin 0.625 MG/GM Vaginal Cream (Estrogens, Conjugated)Indicatio ns:Postmenopausal atrophic vaginitis Administer into the vagina 0.5 g before bedtime. As directed.. 42.5 g 5 07/21/2021 Active Accu-Chek Sophia Plus In Vitro Strip (Glucose Blood)Indications:Ty pe 2 diabetes, HbA1C goal < 8% ([facility]) Test blood sugar 4 times a day 100 Strip 07/27/2021 Active BD Swab Single Use Regular Pad Use prior to testing 100 Each 07/27/2021 Active OneTouch Delica Lancets 33GIndications:Type 2 diabetes, HbA1C goal < 8% ([facility]) Use to test Blood 100 Each [...] HbA1C goal < 8% ([facility]),HTN, goal below 140/90 Take 1 Tablet by mouth in the morning. 90 Tablet 3 08/02/2022 Active Sertraline HCl 25 MG Oral Tablet [...] as needed 150 g 3 10/27/2022 Active traZODone HCl 100 MG Oral Tablet (Desyrel)Indications :Persistent insomnia Take 1 Tablet by mouth at bedtime. 90 Tablet 1 10/27/2022 Active Nitroglycerin 0.4 MG Sublingual Tablet Sublingual (Nitrostat)Indicatio ns:Atherosclerosis of [place] coronary artery of [place] heart with angina pectoris (HCC) Place 1 [...] before bedtime. 180 Tablet 1 12/25/2022 Active documented as of this encounter (statuses as of 01/08/2023) Active Problems Problem Noted Date Major depressive disorder, single episod e, moderate 03/23/2022 Atherosclerosis of [place] co ronary artery of [place] heart with angina pectoris 03/23/2022 Paroxysmal atrial [...] goal < 8% 014 Coronary atherosclerosis of [place] coron андрей artery 02/21/2012 S/P angioplasty with stent 02/21/2012 Overview: Diagnonal #1. [facility] 02/16/12 Mixed dyslipidemia 01/05/2012 Tobacco use disorder 01/05/2012 Major depressive disorder 01/10/2011 Overview: ICD-10 update of inactive term Thoracic and lumbosacral neuritis 2007 Lumbosacral spondylosis 08/05/2007 Spinal stenosis of lumbar region without neurogenic claudication 08/05/2007 HTN, goal below 140/90 documented as of this encounter (statuses as of 01/08/2023) Resolved Problems Problem Noted Date Resolved Date Atherosclerosis of [place] co ronary artery of [place] heart with angina pectoris 09/07/2017 06/27/2018 Inflammation [...] as of this encounter (statuses as of 01/08/2023) Immunizations Name Administration Dates Next Due COVID-19 mRNA, LNP-s, No Pre serve, 2-Dose Series (Moderna) 11/16/2020,10/19/2020 PPD 03/06/2007,02/27/2007 Pneumococcal Conjugate Vacc, 13 Valent (Prevnar) 12/01/2019 Pneumococcal Polysaccharide PPV23 (Pneumovax) 03/13/2012 Seasonal Influenza, Quadriva lent Hd (Fluzone Hd) 03/23/2022,02/24/2021 Seasonal Influenza, Quadriva lent, No Preserve, 6 Mons & Above, IM 03/24/2019,03/06/2018,05/26/2017 03/06/2019 Seasonal Influenza, Quadriva lent, No Preserve, Adjuvanted, 65+ Yrs, IM 03/02/2020 Seasonal Influenza, Quadriva lent, No Preserve, IM [...] * Telephone Encounter - SAMIR Zapien - 01/08/2023 1:47 PM EDT Scheduled. While on the phone, patient states that she can't make her 8 AM appt with Cardio. Scheduled first available with Cardio. 01/08/2023 * Telephone Encounter - Lynette Holm LPN - 01/05/2023 12:29 PM EDT Please assist pt with scheduling appt * Telephone Encounter - Amparo Rich DO - 01/05/2023 10:45 AM EDT The issue of her legs not wanting to work could be a number of things, I would suggest an appt * Telephone Encounter - Shasta Alicea LPN - 12/28/2022 2:32 PM EDT Called patient, reviewed medications with her. Noted nothing new has been started recently. Patientstated she was out of medications and recently restarted them. She is asking if the Atorvastatin could be making her feel this way. * Telephone Encounter - SAMIR Torres - 12/28/2022 9:49 AM EDT Patient called stating she was put on new medication and when she takes it she feels funny and her legs don't want to work. Patient does not know the name of the medication. documented in this encounter Plan of Treatment Upcoming Encounters Date Type Specialty Care Team Description 01/11/2023 Office Visit Family Medicine [facility] [address] [facility] [address] 03/28/2023 Office Visit Family Medicine Amparo Rich DO [address] [place] [address] 04/19/2023 Office Visit Cardiology Enoch Che, DO [address] [place] [address] Scheduled Procedures Name Priority Associated Diagnoses Date/Ti me COLONOSCOPY FLEXIBLE PROXIMAL DIAGNOSTIC Recall Gastrointestinal hemorrhage with melena History of colon polyps ESOPHAGOGASTRODUODENOSCOPY ( EGD), FLEXIBLE, TRANSORAL, DIAGNOSTIC Recall Gastrointestinal hemorrhage with melena History of colon polyps Health Maintenance Due Date Last Done Comments Alpha-1 Antitrypsin 1958 CKD PHOS USE SMARTSET 65913 1958 Zoster Vaccines (2 of 3) 09/24/2012 [...] Additional history exists CKD HGB USE SMARTSET 53664 08/02/202308/02, 11/18/2021, 07/31/2021, Additional history exists COLONOSCOPY-EVERY 5 YRS AGES 18-100 08/02/2023 08/02/2018, 08/02/2018, 08/25/2011 DIABETES-FOOT EXAM 08/02/2023 08/02/2022, 0 07/21/2021, 10/05/2020, Additional history exists O2 ASSESSMENT COMPLETED IN PAST YEAR FOR COPD 12/26/2023 12/25/2022 DTaP,Tdap,and Td Vaccines (2 - Td or Tdap) 10/05/2024 10/05/2014, 03/02/2008 LUNG CANCER SCREENING - USE SMARTSET 09341 Completed 08/12/2019, 06/07/2019, 12/19/2018, Additional history exists [...] filedocumented as of this encounter Care Teams Pediatric Rn Relationship Specialty Start Date End Date Amparo Rich, DO [address] [place] [address] PCP - General Family Medicine 02/21/22 documented as of this encounter
--- OUTSIDE RECORDS SUMMARY | 2023-05-26 07:30 | External Medical Summary | Summary of Care ---
Author Name Unknown Organization [facility] Address [address] [facility] [address] Phone [phone] Care Team Providers Care Senior Talent Acquisition Specialist Name Role Phone Amparo Rich DO Primary Care Provider [phone] Encounter Details Date Type Department Care Team Description 01/26/2023 Telephone [facility] [address] [place] [address] Amparo Rich DO [address] [place] [address] Allergies Active Allergy Reactions Severity Noted Date Comments Bee Venom High 11/17/2011 Life threating reaction Morphine And Related 11/04/2002 vomitting with all types of pain meds documented as of this encounter (statuses as of 01/26/2023) Medications Medication Sig Dispensed Refills Start Date [...] bedtime. As directed.. 42.5 g 07/21/2021 Active Accu-Chek Sophia Plus In Vitro [...] not cut, crush or chew. 30 Tablet 11/18/2021 Active Pseudoephedrine HCl ER 120 MG [...] s:Type 2 diabetes, HbA1C goal < 8% ([facility]),HTN, goal below 140/90 Take 1 Tablet [...] MG Sublingual Tablet Sublingual (Nitrostat)Indicatio ns:Atherosclerosis of [place] coronary artery of [place] heart with angina pectoris (HCC) Place 1 [...] as of this encounter (statuses as of 01/26/2023) Active Problems Problem Noted Date Major depressive disorder, single episod e, moderate 03/23/2022 Atherosclerosis of [place] co ronary artery of [place] heart with angina pectoris 03/23/2022 Paroxysmal atrial [...] goal < 8% 014 Coronary atherosclerosis of [place] coron андрей artery 02/21/2012 S/P angioplasty with stent 02/21/2012 Overview: Diagnonal #1. [facility] 02/16/12 Mixed dyslipidemia 01/05/2012 Tobacco use disorder 01/05/2012 Major depressive disorder 01/10/2011 Overview: ICD-10 update of inactive term Thoracic and lumbosacral neuritis 2007 Lumbosacral spondylosis 08/05/2007 Spinal stenosis of lumbar region without neurogenic claudication 08/05/2007 HTN, goal below 140/90 documented as of this encounter (statuses as of 01/26/2023) Resolved Problems Problem Noted Date Resolved Date Atherosclerosis of [place] co ronary artery of [place] heart with angina pectoris 09/07/2017 06/27/2018 Inflammation [...] as of this encounter (statuses as of 01/26/2023) Immunizations Name Administration Dates Next Due COVID-19 [...] Miscellaneous Notes * Telephone Encounter - Amparo Rich, - 01/26/2023 9:18 AM EDT Results for orders placed or performed in visit on 12/25/22 LIPID PANEL WITH DIRECT LDL IF TG IS HIGH Result Value Ref Range Triglycerides 309 (H) <=174 mg/dL Cholesterol 253 (H) <200 mg/dL HDL Cholesterol 41 (L) >49 mg/dL Non-HDL Cholesterol 212 (H) <=159 mg/dL LDL Cholesterol 150 (H) <=129 mg/dL HEMOGLOBIN A1C Result Value Ref Range Hemoglobin A1C 8.0 (H) 4.0 - 5.6 % Estimated Average Glucose 183 (H) <126 mg/dL BASIC METABOLIC PANEL Result Value Ref Range BUN 10 6 - 20 mg/dL Creatinine 1.1 (H) 0.5 - 1.0 mg/dL Estimated Glomerular Filtration Rate 50 (L) >=60 mL/min Sodium 140 135 - 146 mmol/L Potassium 4.3 3.5 - 5.1 mmol/L Chloride 106 98 - 107 mmol/L CO2 21 (L) 22 - 32 mmol/L Anion Gap 13 7 - 15 mmol/L Glucose 180 (H) 70 - 120 mg/dL Calcium 9.0 8.4 - 10.2 mg/dL *Note: Due to a large number of results and/or encounters for the requested time period, some results have not been displayed. A complete set of results can be found in Results Review. Her cholesterol is elevated, is she taking her statin? documented in this encounter Plan of Treatment Upcoming Encounters Date Type Specialty Care Team Description 04/12/2023 Office Visit Family Medicine [facility]paro Rich DO [address] [facility] [id number] 04/19/2023 Office Visit Cardiology Enoch Che DO [address] [place] [address] Scheduled Procedures Name Priority Associated Diagnoses Date/Ti me COLONOSCOPY FLEXIBLE PROXIMAL DIAGNOSTIC Recall Gastrointestinal hemorrhage with melena History of colon polyps ESOPHAGOGASTRODUODENOSCOPY ( EGD), FLEXIBLE, TRANSORAL, DIAGNOSTIC Recall Gastrointestinal hemorrhage with melena History of colon polyps Health Maintenance Due Date Last Done Comments Alpha-1 Antitrypsin 1958 CKD PHOS USE SMARTSET 54612 1958 Zoster Vaccines (2 of 3) 09/24/2012 [...] Additional history exists CKD HGB USE SMARTSET 45969 08/02/202308/02, 11/18/2021, 07/31/2021, Additional history exists COLONOSCOPY-EVERY 5 YRS AGES 18-100 08/02/2023 08/02/2018, 08/02/2018, 08/25/2011 DIABETES-FOOT EXAM 08/02/2023 08/02/2022, 0 07/21/2021, 10/05/2020, Additional history exists O2 ASSESSMENT COMPLETED IN PAST YEAR FOR COPD 12/26/2023 12/25/2022 DTaP,Tdap,and Td Vaccines (2 - Td or Tdap) 10/05/2024 10/05/2014, 03/02/2008 LUNG CANCER SCREENING - USE SMARTSET 81958 Completed 08/12/2019, 06/07/2019, 12/19/2018, Additional history exists [...] filedocumented as of this encounter Care Teams Senior Talent Acquisition Specialist Relationship Specialty Start Date End Date Amparo Rich, [address] [facility] [address] PCP - General Family Medicine 02/21/22 documented as of this encounter
--- OUTSIDE RECORDS SUMMARY | 2023-05-26 07:30 | External Medical Summary | Summary of Care ---
Author Name Unknown Organization [facility] Address [address] [facility] [place] [address] Phone [phone] Care Team Providers Care Work Checker Name Role Phone Casey Rich DO Primary Care Provider [phone] Reason for Visit * Reason Onset Date Comments Medication Refill 12/19/2022 Encounter Details Date Type Department Care Team Description 12/19/2022 Refill [place] [address] [place] [address] Casey Rich [address] [place] [address] Chronic pain syndrome; MEDICATION USE AGREEMENT Allergies Active Allergy Reactions Severity Noted Date Comments Bee Venom High 11/17/2011 Life threating reaction Morphine And Related 11/04/2002 vomitting with all types of pain meds documented as of this encounter (statuses as of 12/21/2022) Medications Medication Sig Dispensed Refills Start Date End Date Status EPIPEN 0.3 MG/0.3ML IJ DEVIIndications:Bee sting One injection into thigh as needed for severe allergic reaction 1 Device 5 10/08/2013 Active Blood Glucose Monitoring Suppl (ACCU-CHEK SOPHIA PLUS) w/Device KITIndications:Type 2 diabetes, HbA1C goal < 8% ([facility]) Use 4 times a day to check blood sugar. 1 Kit 0 04/24/2019 Active Cyanocobalamin (B-12-SL) 1000 MCG SL TabletIndications:L ow serum vitamin B12 Place 1,000 mcg under the tongue daily. 90 Tab 3 03/02/2020 Active oxygen IN GASIndications:Noct urnal hypoxemia 2 L of oxygen while sleeping 1 Each 0 01/20/2021 Active oxygen IN GASIndications:Noct urnal hypoxemia,COPD, group B, by GOLD 2017 classification ([facility]) Use 2 L/min(Oxygen) as directed continuous. concentrated and home fill with portability 1 Each 0 01/21/2021 Active Premarin 0.625 MG/GM Vaginal Cream (Estrogens, Conjugated)Indicati ons:Postmenopausal atrophic vaginitis Administer into the vagina 0.5 g before bedtime. As directed.. 42.5 g 07/21/2021 Active Accu-Chek Sophia Plus In Vitro Strip (Glucose Blood)Indications:T ype 2 diabetes, HbA1C goal < 8% ([facility]) Test blood sugar 4 times a day 100 Strip 07/27/2021 Active BD Swab Single Use Regular Pad Use prior to testing 100 Each 07/27/2021 Active OneTouch Delica Lancets 33GIndications:Type 2 diabetes, HbA1C goal < 8% ([facility]) Use to test Blood 100 Each 07/27/2021 Active Folic Acid 1 MG Oral TabletIndications:I liza deficiency anemia, unspecified iron deficiency anemia type Take by mouth 1 Tablet in the morning. 90 Tablet 11/18/2021 Active Oxybutynin Chloride ER 5 MG Oral [...] the morning. 90 Tablet 3 08/02/2022 Active Atorvastatin Calcium 80 MG Oral Tablet (Lipitor)Indication s:Mixed dyslipidemia Take 1 Tablet by mouth in the morning. 90 Tablet 3 08/02/2022 Active Lisinopril 10 MG Oral Tablet (Prinivil)Indicatio ns:Type 2 diabetes, HbA1C goal < 8% (HCC),HTN, goal below 140/90 Take 1 Tablet by mouth in the morning. 90 Tablet 3 08/02/2022 Active Metoprolol Tartrate 50 MG Oral Tablet (Lopressor)Indicati ons:Paroxysmal atrial fibrillation (HCC) Take 1 Tablet by mouth in the morning and 1 Tablet before bedtime. 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 90 Tablet 0 12/20/2022 Active traMADol HCl 50 MG Oral Tablet (Ultram)Indications :Chronic pain syndrome,MEDICATION USE AGREEMENT Take 1 Tablet by mouth in the morning and 1 Tablet at noon and 1 Tablet before bedtime. 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 * Telephone Encounter - Casey Rich DO - 12/20/2022 2:26 PM EDTSigned Prescriptions: Disp Refills traMADol HCl 50 MG Oral Tablet (Ultram) 90 Tab*0 Sig: Take 1 Tablet by mouth in the morning and 1 Tablet at noon and 1 Tablet before bedtime. Authorizing Provider: CASEY RICH * Telephone Encounter - Rangel Cano [facility] - 12/20/2022 11:38 AM EDT Pending Prescriptions: Disp Refills traMADol HCl 50 MG Oral Tablet (Ultram) 90 Tab*0 Sig: Take 1 Tablet by mouth in the morning and 1 Tablet at noon and 1 Tablet before bedtime. * Telephone Encounter - Rangel Cano [facility] - 12/20/2022 11:37 AM EDT I have reviewed the patients controlled substance dispensing history in the Prescription Drug Monitoring Program in compliance with the [facility] regulations before prescribing a controlled substance. PDMP checked on 12/20/2022. Pending Prescriptions: Disp Refills traMADol HCl 50 MG Oral Tablet (Ultram) 90 Tab*0 Sig: Take 1 Tablet by mouth in the morning and 1 Tablet at noon and 1 Tablet before bedtime. Last Visit: 12/05/2022 (in office), Visit date not found (telemedicine) Next Visit: 12/25/2022 Date medication was last filled: 12/11/22 Date medication is due for refill: 12/17/22 Pharmacy: [facility] #[id number] Is this request for a controlled substance? Yes and Urine Drug Screen Not completed Toxicology results: Results for orders placed or performed in [...] results can be found in Results Review. Please approve if appropriate. Thanks, Rangel Cano, PharmD Clinical Pharmacist [facility] ([facility]) (formerly Telepharmacy) [phone] 12/20/2022, 11:37 AM * Telephone Encounter - [facility] - 12/19/2022 1:23 PM EDT Please reroute Rx to [id number] [facility]. Pending Prescriptions: Disp Refills traMADol HCl 50 MG Oral Tablet (Ultram) 90 Tab*0 Sig: Take 1 Tablet by mouth in the morning and 1 Tablet at noon and 1 Tablet before bedtime. Last Visit: 12/05/2022 (in office), Visit date not found (telemedicine) 12/25/2022 If no future appointments scheduled, and last appointment is greater than a year ago, please schedule patient for a follow-up appointment Last date the medication was ordered: 12/08/22 Patient Phone Numbers Labs: Lab Results Component Value Date/Time CREAT 0.8 08/02/2022 01:26 PM CREAT 0.9 03/24/2020 08:32 AM POTASSIUM 4.3 08/02/2022 01:26 PM POTASSIUM 4.4 02/24/2020 07:34 AM TSH 1.79 08/23/2020 04:06 PM TSH 1.79 02/24/2020 07:34 AM LDLCALC 187 (H) 08/02/2022 01:26 PM LDLCALC 158 (H) 02/24/2020 07:34 AM LDLDIRECT 202 (H) 11/18/2021 10:10 AM LDLDIRECT NOT APPLICABLE 02/24/2020 07:34 AM LDLDIRECT 109 02/11/2013 09:45 AM ALT 15 08/02/2022 01:26 PM ALT 13 02/24/2020 07:34 AM HGBA1C 8.4 (H) 08/02/2022 01:26 PM HGBA1C 7.3 (H) 02/24/2020 07:34 AM documented in this encounter Plan of Treatment Upcoming Encounters Date Type Specialty Care Team Description 12/25/2022 Office Visit Family Medicine Casey Rich, [address] [address] Scheduled Procedures Name Priority Associated Diagnoses Date/Ti me COLONOSCOPY FLEXIBLE PROXIMAL DIAGNOSTIC Recall Gastrointestinal hemorrhage with melena History of colon polyps ESOPHAGOGASTRODUODENOSCOPY ( EGD), FLEXIBLE, TRANSORAL, DIAGNOSTIC Recall Gastrointestinal hemorrhage with melena History of colon polyps Health Maintenance Due Date Last Done Comments Alpha-1 Antitrypsin 1958 CKD PHOS USE SMARTSET 67450 1958 Zoster Vaccines (2 of 3) 09/24/2012 07/30/2012 DISCUSS TOBACCO CESSATION (REFER TO SMARTSET #3291) 06/01/2016 06/01/2015 (Discussed) DXA Scan 07/18/2018 07/18/2011, 07/18/2011 *COPD SEVERITY VERIFIED BY PFT 02/01/2019 COVID-19 Vaccine (3 - Moderna series) 01/11/2021 11/16/2020, 10/19/2020 Albumin/Creatinine Ratio 11/18/2022 022, 08/24/2017, 10/30/2016, Additional history exists Depression Screening, Annual for Pts 12 and Over 11/18/2022 11/18/2021 GFR 01/30/2023 08/02/2022, 10/24, 07/31/2021, Additional history exists HbA1c 01/30/2023 08/02/2022, 10/24, 07/21/2021, Additional history exists DIABETES-EYE EXAM 05/29/2023 05/29/2022, , 03/09/2016 CKD HGB USE SMARTSET 05192 08/02/202308/02, 11/18/2021, 07/31/2021, Additional history exists COLONOSCOPY-EVERY 5 YRS AGES 18-100 08/02/2023 08/02/2018, 08/02/2018, 08/25/2011 DIABETES-FOOT EXAM 08/02/2023 08/02/2022, 0 07/21/2021, 10/05/2020, Additional history exists O2 ASSESSMENT COMPLETED IN PAST YEAR FOR COPD 12/06/2023 12/05/2022 DTaP,Tdap,and Td Vaccines (2 - Td or Tdap) 10/05/2024 10/05/2014, 03/02/2008 LUNG CANCER SCREENING - USE SMARTSET 24492 Completed 08/12/2019, 06/07/2019, 12/19/2018, Additional history exists Pneumococcal Vaccine: 65+ Years Completed 12/01/2019, 03/13/2012 Influenza Vaccine (FLU shot) Completed , 02/24/2021, 03/02/2020, Additional history exists GARDASIL-HPV IMMUNIZATION SERIES Aged Out No longer [...] of this encounter Visit Diagnoses Diagnosis Chronic pain syndrome MEDICATION USE AGREEMENT documented in this encounter Care Teams Work Checker Relationship Specialty Start Date End Date Casey Rich, DO [address] [place] [address] PCP - General Family Medicine 02/21/22 documented as of this encounter
--- OUTSIDE RECORDS SUMMARY | 2023-05-26 07:30 | External Medical Summary | Summary of Care ---
Author Name Unknown Organization [facility] Address [address] [place] [address] Phone [phone] Care Team Providers Care Rig Manager Name Role Phone HilarioAmparo Gina ESCOBAR Primary Care Provider + [phone] Reason for Visit * Reason Comments Acute Encounter Details Date Type Department Care Team Description 01/31/2023 Office Visit [facility] [address] [place] [address] Kimberly Lutz PA-C [address] [place] [address] Shortness of breath* Allergies Active Allergy Reactions Severity Noted Date Comments Bee Venom High 11/17/2011 Life threating reaction Morphine And Related 11/04/2002 vomitting with all types of pain meds documented as of this encounter (statuses as of 01/31/2023) Medications Medication Sig Dispensed Refills Start Date [...] MG Sublingual Tablet Sublingual (Nitrostat)Indicatio ns:Atherosclerosis of three affiliated coronary artery of three affiliated heart with angina pectoris (HCC) Place 1 [...] at bedtime. 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 [facility] 02/16/12 Mixed dyslipidemia 01/05/2012 Tobacco use disorder 01/05/2012 Major depressive disorder 01/10/2011 Overview: ICD-10 update of inactive term Thoracic and lumbosacral neuritis 2007 Lumbosacral spondylosis 08/05/2007 Spinal stenosis of lumbar region without neurogenic claudication 08/05/2007 HTN, goal below 140/90 documented as of this encounter (statuses as of 01/31/2023) Resolved Problems Problem Noted Date Resolved Date Atherosclerosis of three affiliated co ronary artery of three affiliated heart with angina pectoris 09/07/2017 06/27/2018 Inflammation [...] as of this encounter (statuses as of 01/31/2023) Immunizations Name Administration Dates Next Due COVID-19 [...] Sign Reading Time Taken Comments Blood Pressure 138/99 01/31/2023 2:31 PM EDT Pulse - - Temperature 37.4 C (99.4 F) 01/31/2023 2:31 PM ED T Respiratory Rate 20 01/31/2023 2:31 PM EDT Oxygen Saturation 97% 01/31/2023 2:31 PM EDT Inhaled Oxygen Concentration - - Weight 70.2 kg (154 lb 11.2 oz) 01/31/2023 2:31 PM EDT Height - - Body Mass Index 31.25 12/25/2022 9:58 AM EDT documented in this encounter Progress Notes * Kimberly Lutz PA-C - 01/31/2023 3:03 PM EDT Images from the original note were not included. History of Present Illness Amalia Baker is a 82 year old female that presents to the office regarding shortness of breath for2 days. Patient started Sunday and Sunday she felt chills, body aches and shortness of breath. Then today she woke up and felt fine. Denied current shortness of breath. Denied earache, sore throat, CP, palpitations, N/V/D. Physical Exam Vitals: 01/31/23 1431 Temp: 37.4 C (99.4 F) Resp: 20 SpO2: 97% BP: 138/99 BP Readings from Last 3 Encounters: 01/31/23 138/99 12/25/22 118/80 12/05/22 134/80 Physical Exam Vitals and nursing note reviewed. Constitutional: General: She is not in acute distress. Appearance: Normal appearance. She is not ill-appearing, toxic-appearing or diaphoretic. HENT: Head: Normocephalic and atraumatic. Right Ear: Tympanic membrane, ear canal and external ear normal. Left Ear: Tympanic membrane, ear canal and external ear normal. Nose: Nose normal. No congestion or rhinorrhea. Mouth/Throat: Mouth: Mucous membranes are moist. Eyes: General: No scleral icterus. Conjunctiva/sclera: Conjunctivae normal. Cardiovascular: Rate and Rhythm: Normal rate. Rhythm irregular. Heart sounds: Normal heart sounds. No murmur heard. Pulmonary: Effort: Pulmonary effort is normal. No respiratory distress. Breath sounds: Normal breath sounds. No stridor. No wheezing, rhonchi or rales. Skin: General: Skin is warm and dry. Findings: No rash. Neurological: Mental Status: She is alert and oriented to person, place, and time. I have reviewed the following results: EKG and BMP Assessment and Plan Shortness of breath - Resolved - Most likely viral cause - Low grade fever noted Wrap-Up Follow Up: Return if symptoms worsen or fail to improve, for as scheduled. | For: as scheduled Time: I spent a total of 30-39 minutes (exact time 30 mins) on the date of service in preparation, delivery, and documentation of the care provided to Amalia Baker excluding any time spent in the performance of separately billed services. documented in this encounter Nursing Notes * PAPITO Kaplan ASSIST - 01/31/2023 2:27 PM EDT The patient has been properly identified by confirmation of name and date of . Chief Complaint Patient presents with Acute Pt states that Sunday and Sunday she was having a hard time breathing. Today she feels pretty goodher legs are just sore. documented in this encounter Plan of Treatment Upcoming Encounters Date Type Specialty Care Team Description 04/12/2023 Office Visit [facility] [address] [facility] [address] 04/19/2023 Office Visit Cardiology Enoch Che, DO [address] [place] [address] Scheduled Procedures Name Priority Associated Diagnoses Date/Ti me COLONOSCOPY FLEXIBLE PROXIMAL DIAGNOSTIC Recall Gastrointestinal hemorrhage with melena History of colon polyps ESOPHAGOGASTRODUODENOSCOPY ( EGD), FLEXIBLE, TRANSORAL, DIAGNOSTIC Recall Gastrointestinal hemorrhage with melena History of colon polyps Health Maintenance Due Date Last Done Comments Alpha-1 Antitrypsin 1958 CKD PHOS USE SMARTSET 32409 1960 Zoster Vaccines (2 of 3) 09/24/2012 [...] Additional history exists CKD HGB USE SMARTSET 24376 08/02/202308/02, 11/18/2021, 07/31/2021, Additional history exists COLONOSCOPY-EVERY 5 YRS AGES 18-100 08/02/2023 08/02/2018, 08/02/2018, 08/25/2011 DIABETES-FOOT EXAM 08/02/2023 08/02/2022, 0 07/21/2021, 10/05/2020, Additional history exists O2 ASSESSMENT COMPLETED IN PAST YEAR FOR COPD 12/26/2023 12/25/2022 DTaP,Tdap,and Td Vaccines (2 - Td or Tdap) 10/05/2024 10/05/2014, 03/02/2008 LUNG CANCER SCREENING - USE SMARTSET 91545 Completed 08/12/2019, 06/07/2019, 12/19/2018, Additional history exists [...] as of this encounter Visit Diagnoses Diagnosis Shortness of breath- Primary documented in this encounter Care Teams Rig Manager Relationship Specialty Start Date End Date Amparo Rich, [address] [place] [address] PCP - General Family Medicine 02/21/22 documented as of this encounter"
--- OUTSIDE RECORDS SUMMARY | 2023-05-26 07:30 | External Medical Summary | Summary of Care ---
Author Name Unknown Organization [facility] Address [address] [facility] [address] Phone [phone] Care Team Providers Care Pmp Project Manager Name Role Phone Amparo Rich DO Primary Care Provider [phone] Reason for Referral * Evaluate & Treat - Unlimited Visits (Within 10 days (routine)) - Pending Review Specialty Diagnoses / Procedures Referred By Sheldon vega Referred To Contact Cardiovascular Medicine / Cardiology Diagnoses Paroxysmal atrial fibrillation (HCC) Amparo Rich DO [address] [place] [address] Referral ID Status Reason Start Date Expiration Date Visits Requested Visits Authorized [id number] Pending Review Specialty Services Required 12/25/[phone] Question Answer Referral Priority Within 10 days (routine) To which of the following clinics are you referring your patient? General Cardiology Clinic Reason for Visit * Reason Comments Follow Up Encounter Details Date Type Department Care Team Description 12/25/2022 Office Visit [facility] [address] [place] [id number] Amparo Rich DO [address], [place] [id number] Type 2 diabetes, HbA1C goal < 8% ([facility])*; Mixed dyslipidemia; Iron deficiency anemia, unspecified iron deficiency anemia type; Paroxysmal atrial fibrillation (HCC); Atherosclerosis of hopi coronary artery of hopi heart without angina pectoris; COPD, group B, by GOLD 2017 classification ([facility]); HTN, goal below 140/90; Tobacco use disorder; Centrilobular emphysema (HCC) Allergies Active Allergy Reactions Severity Noted Date Comments Bee Venom High 11/17/2011 Life threating reaction Morphine And Related 11/04/2002 vomitting with all types of pain meds documented as of this encounter (statuses as of 12/25/2022) Medications Medication Sig Dispensed Refills Start Date [...] MG Sublingual Tablet Sublingual (Nitrostat)Indicati ons:Atherosclerosis of hopi coronary artery of hopi heart with angina pectoris (HCC) Place 1 [...] before bedtime. 180 Tablet 1 12/25/2022 Active Folic Acid 1 MG Oral TabletIndications:I liza deficiency anemia, unspecified iron deficiency anemia type Take by mouth 1 Tablet in the morning. 90 Tablet 5 11/18/2021 12/26/19 23 Discontinu ed(Refill) Atorvastatin Calcium 80 MG Oral Tablet (Lipitor)Indication s:Mixed dyslipidemia Take 1 Tablet by mouth in the morning. 90 Tablet 3 08/02/2022 12/26/19 23 Discontinu ed(Refill) Metoprolol Tartrate 50 MG Oral Tablet (Lopressor)Indicati ons:Paroxysmal atrial fibrillation (HCC) Take 1 Tablet by mouth in the morning and 1 Tablet before bedtime. 180 Tablet 1 08/02/2022 12/26/19 23 Discontinu ed(Refill) documented as of this encounter (statuses as of 12/25/2022) Active Problems Problem Noted Date Major depressive disorder, single episod e, moderate 03/23/2022 Atherosclerosis of hopi co ronary artery of hopi heart with angina pectoris 03/23/2022 Paroxysmal atrial [...] goal < 8% 014 Coronary atherosclerosis of hopi coron андрей artery 02/21/2012 S/P angioplasty with stent 02/21/2012 Overview: Diagnonal #1. [facility] 02/16/12 Mixed dyslipidemia 01/05/2012 Tobacco use disorder 01/05/2012 Major depressive disorder 01/10/2011 Overview: ICD-10 update of inactive term Thoracic and lumbosacral neuritis 2007 Lumbosacral spondylosis 08/05/2007 Spinal stenosis of lumbar region without neurogenic claudication 08/05/2007 HTN, goal below 140/90 documented as of this encounter (statuses as of 12/25/2022) Resolved Problems Problem Noted Date Resolved Date Atherosclerosis of hopi co ronary artery of hopi heart with angina pectoris 09/07/2017 06/27/2018 Inflammation [...] as of this encounter (statuses as of 12/25/2022) Immunizations Name Administration Dates Next Due COVID-19 [...] Sign Reading Time Taken Comments Blood Pressure 118/80 12/25/2022 9:58 AM EDT Pulse 112 12/25/2022 9:58 AM EDT Temperature - - Respiratory Rate 18 12/25/2022 9:58 AM EDT Oxygen Saturation 97% 12/25/2022 9:58 AM EDT Inhaled Oxygen Concentration - - Weight 72.1 kg (159 lb) 12/25/2022 9:58 AM EDT Height 149.9 cm (4' 11") 12/25/2022 9:58 AM EDT Body Mass Index 32.11 12/25/2022 9:58 AM EDT documented in this encounter Progress Notes * Amparo Rich, - 12/25/2022 10:14 AM EDT Subjective: Amalia Baker is a 82 year old female. Chief Complaint Patient presents with Follow Up HPI: 82 year old female with history of Type 2 Diabetes, hypertension, depression, spinal stenosis,CAD, Atrial fibrillation, ongoing tobacco use, COPD, nocturnal hypoxemia, although she is not usingoxygen at night, and she feels as though this is not necessary. She is seeing MTM for diabetes. Sheis on Jardiance and Metformin She notes some issues with her memory and got over the counter Prevagen. She has been having issuesremembering to take pills. We talked aboutusing a pill box. She states she ran out of her metoprolol 2 weeks ago. Refilled med today. Willing to get labs. Has not seen cardiology for her atrial fibrillation since Jun. She was taken off Eliquis due to fall risk. This was in the fall. She was seeing Dr Villalobos. Will place a new referral for a cardiology follow-up. She denies any chest pain. No shortness of breath. PHM: 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 M48.061 HTN, goal below 140/90 I10 Major depressive disorder F32.9 Mixed dyslipidemia E78.2 Tobacco use disorder F17.200 Coronary atherosclerosis of hopi coronary artery I25.10 S/P angioplasty with stent Z95.820 Type 2 diabetes, HbA1C goal < 8% ([facility]) E11.9 Diabetic polyneuropathy associated with type 2 diabetes mellitus ([facility]) E11.42 Nocturnal hypoxemia G47.34 Centrilobular emphysema ([facility]) J43.2 Major depressive disorder, recurrent, unspecified ([facility]) F33.9 COPD, group B, by GOLD 2017 classification ([facility]) J44.9 Low serum vitamin B12 E53.8 Chronic kidney disease, stage 3a ([facility]) N18.31 Paroxysmal atrial fibrillation ([facility]) I48.0 Major depressive disorder, single episode, moderate ([facility]) F32.1 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 1 Kit 0 Cyanocobalamin (B-12-SL) [address] 1,000 mcg under the tongue daily. 90 Tab 3 oxygen IN GAS 2 L of oxygen while sleeping 1 Each 0 oxygen IN GAS Use 2 L/min(Oxygen) as directed continuous. concentrated and home fill with portability 1 Each 0 Premarin 0.625 MG/GM Vaginal Cream (Estrogens, Conjugated) Administer into the vagina 0.5 g before bedtime. As directed.. 42.5 g 5 Accu-Chek Sophia Plus In Vitro Strip (Glucose Blood) Test [...] mouth 2 times a day as needed. Fluticasone Propionate 50 MCG/ACT Nasal Suspension Administer into each nostril 2 Sprays in themorning. 18.2 mL 3 hydrOXYzine HCl 10 MG Oral Tablet (Atarax) TAKE 1 TABLET BY MOUTH TWICE A DAY NEEDED FOR ANXIETY 30 Tablet 0 Fluconazole 150 MG Oral Tablet (Diflucan) Take 1 Tablet by mouth once as needed. Gabapentin 800 MG Oral Tablet (Neurontin) Take 1 Tablet by mouth in the morning. 90 Tablet 3 Lisinopril 10 MG Oral Tablet (Prinivil) Take 1 Tablet by mouth in the morning. 90 Tablet 3 Sertraline HCl 25 MG Oral Tablet (Zoloft) Take 1 Tablet by mouth in the morning. 90 Tablet 3 metFORMIN HCl 500 MG Oral Tablet (Glucophage) Take 1 Tablet by mouth 2 times a day with morningand evening meals. 180 Tablet 3 Diclofenac Sodium 1 % External Gel (Voltaren) Apply 2-4 grams to right foot four times daily asneeded 150 g 3 traZODone HCl 100 MG Oral Tablet (Desyrel) Take 1 Tablet by mouth at bedtime. 90 Tablet 1 Nitroglycerin 0.4 MG Sublingual Tablet Sublingual (Nitrostat) Place 1 Tablet under the tongue every [...] to the Emergency room. 1 Each 3 traMADol HCl 50 MG Oral Tablet (Ultram) [...] 1 Tablet before bedtime. 180 Tablet 1 Zoster Vac Recomb Adjuvanted 50 MCG/0.5ML Intramuscular Suspension Reconstituted (Shingrix) Inject 0.5 mL into a large muscle now and repeat dose in 60 to 180 days 1 Each 1 No current facility-administered medications for this visit. Review of patient's allergies indicates: Allergen Reactions Bee Venom Life threating reaction Morphine And Related vomitting with all types of pain meds Objective: BP 118/80 | Pulse 112 | Resp 18 | Ht 1.499 m (4' 11") | Wt 72.1 kg (159 lb) | SpO2 97% | BMI 32.11 kg/m | BSA 1.73 m Physical Exam: General: alert, healthy and no distress Heart: irregularly irregular Lungs: decreased breath sounds Abdomen: abdomen soft, non-tender, normal bowel sounds and no masses or organomegaly Extremities: no edema ASSESSMENT/PLAN: Type 2 diabetes, HbA1C goal < 8% ([facility]) (Primary) - ALBUMIN / CREATININE RATIO, URINE; Future; Expected date: 12/25/2022 - HEMOGLOBIN A1C; Future; Expected date: 12/25/2022 Mixed dyslipidemia - Atorvastatin Calcium 80 MG Oral Tablet (Lipitor); Take 1 Tablet by mouth in the morning. Iron deficiency anemia, unspecified iron deficiency anemia type - Folic Acid 1 MG Oral Tablet; Take 1 Tablet by mouth in the morning. Paroxysmal atrial fibrillation (HCC) - Metoprolol Tartrate 50 MG Oral Tablet (Lopressor); Take 1 Tablet by mouth in the morning and 1 Tablet before bedtime. - EKG ekg shows atrial flutter, to see cardiology within the next 1-2 weeks Out of beta laureano for 2 weeks Stressed the importance of not missing medications. Atherosclerosis of hopi coronary artery of hopi heart without angina pectoris - LIPID PANEL WITH DIRECT LDL IF TG IS HIGH; Future; Expected date: 12/25/2022 COPD, group B, by GOLD 2017 classification (HCC) HTN, goal below 140/90 - BASIC METABOLIC PANEL; Future; Expected date: 12/25/2022 Stable. Tobacco use disorder Encouraged pt to quit smoking. Centrilobular emphysema (HCC) Amparo Rich DO documented in this encounter Procedure Notes * Isidro Espinosa MD - 12/25/2022 9:43 AM EDTAssociated Order(s): EKG REASON FOR STUDY: atrial fibrillation CONCLUSIONS: Atrial flutter with variable A-V block Abnormal ECG When compared with ECG of 02-MAR-2022 15:58, Atrial flutter has replaced Sinus rhythm QT has lengthened Ventricular Rate: 101 Atrial Rate: 288 QRS Duration: 74 QT/QTc: 352/456 ms P-R-T Diamond: 0 : 66 : 58 degrees documented in this encounter Nursing Notes * Shasta Alicea LPN - 12/25/2022 10:01 AM EDT The patient has been properly identified by confirmation of name and date of . Chief Complaint Patient presents with Follow Up documented in this encounter Plan of Treatment Upcoming Encounters Date Type Specialty Care Team Description 01/15/2023 Office Visit Cardiology Eonch Che DO [address] [place] [address] 03/28/2023 Office Visit Family Medicine Amparo Rich DO [address] [place] [address] Pending Results Name Type Priority Associated Diagnoses Date /Time LIPID PANEL WITH DIRECT LDL IF TG IS HIGH Lab Routine Atherosclerosis of hopi coronary artery of hopi heart without angina pectoris 12/25/2022 11:01 AM EDT HEMOGLOBIN A1C Lab Routine Type 2 diabetes, HbA1C goal < 8% (HCC) 12/25/2022 11:01 AM EDT BASIC METABOLIC PANEL Lab Routine HTN, goal below 140/90 12/25/2022 11:01 AM EDT Scheduled Orders Name Type Priority Associated Diagnoses Orde r Schedule LIPID PANEL WITH DIRECT LDL IF TG IS HIGH Lab Routine Atherosclerosis of hopi coronary artery of hopi heart without angina pectoris Expected: 12/25/2022, Expires: 12/26/2023 ALBUMIN / CREATININE RATIO, URINE Lab Routine Type 2 diabetes, HbA1C goal < 8% (HCC) Expected: 12/25/2022 (Approximate), Expires: 12/25/2023 HEMOGLOBIN A1C Lab Routine Type 2 diabetes, HbA1C goal < 8% (HCC) Expected: 12/25/2022 (Approximate), Expires: 12/25/2023 BASIC METABOLIC PANEL Lab Routine HTN, goal below 140/90 Expected: 12/25/2022 (Approximate), Expires: 12/25/2023 Scheduled Procedures Name Priority Associated Diagnoses Date/Ti me COLONOSCOPY FLEXIBLE PROXIMAL DIAGNOSTIC Recall Gastrointestinal hemorrhage with melena History of colon polyps ESOPHAGOGASTRODUODENOSCOPY ( EGD), FLEXIBLE, TRANSORAL, DIAGNOSTIC Recall Gastrointestinal hemorrhage with melena History of colon polyps Scheduled Referrals Name Type Priority Associated Diagnoses Orde r Schedule CARDIOLOGY REFERRAL OP Referral Within 10 days (routine) Paroxysmal atrial fibrillation (HCC) Ordered: 12/25/2022 Health Maintenance Due Date Last Done Comments Alpha-1 Antitrypsin 1958 CKD PHOS USE SMARTSET 90753 1958 Zoster Vaccines (2 of 3) 09/24/2012 [...] 01/30/2023 08/02/2022, 10/24, 07/21/2021, Additional history exists Influenza Vaccine (FLU shot) (#1) 2023 03/23/2022, 02/24/2021, 03/02/2020, Additional history exists DIABETES-EYE EXAM 05/29/2023 05/29/2022, , 03/09/2016 CKD HGB USE SMARTSET 26855 08/02/202308/02, 11/18/2021, 07/31/2021, Additional history exists COLONOSCOPY-EVERY 5 YRS AGES 18-100 08/02/2023 08/02/2018, 08/02/2018, 08/25/2011 DIABETES-FOOT EXAM 08/02/2023 08/02/2022, 0 07/21/2021, 10/05/2020, Additional history exists O2 ASSESSMENT COMPLETED IN PAST YEAR FOR COPD 12/06/2023 12/25/2022 DTaP,Tdap,and Td Vaccines (2 - Td or Tdap) 10/05/2024 10/05/2014, 03/02/2008 LUNG CANCER SCREENING - USE SMARTSET [id number] Completed 08/12/2019, 06/07/2019, 12/19/2018, Additional history exists [...] Procedure Name Priority Date/Time Associated Diagnosis Comments PA ECG ROUTINE ECG W/LEAST 12 LDS I&R ONLY Routine 12/25/2022 9:43 AM EDT Paroxysmal atrial fibrillation (HCC) documented in this encounter Results * EKG (12/25/2022 9:43 AM EDT) 12/25/2022 9:43 AM EDT Procedure Note Isidro Espinosa MD - 12/25/2022 9:43 AM EDT REASON FOR STUDY: atrial fibrillation CONCLUSIONS: Atrial flutter with variable A-V block Abnormal ECG When compared with ECG of 02-MAR-2022 15:58, Atrial flutter has replaced Sinus rhythm QT has lengthened Ventricular Rate: 101 Atrial Rate: 288 QRS Duration: 74 QT/QTc: 352/456 ms P-R-T Diamond: 0 : 66 : 58 degrees mAparo Rich DO EKG [facility] documented in this encounter Visit Diagnoses Diagnosis Type 2 diabetes, HbA1C goal < 8% ([facility])- Primary Type II or unspecified type diabetes mellitus without mention of complication, not stated as uncontrolled Mixed dyslipidemia Mixed hyperlipidemia Iron deficiency anemia, unspecified iron deficiency anemia type Paroxysmal atrial fibrillation (HCC) Atrial fibrillation Atherosclerosis of hopi coronary artery of hopi heart without angina pectoris COPD, group B, by GOLD 2017 classification ([facility]) HTN, goal below 140/90 Unspecified essential hypertension Tobacco use disorder Centrilobular emphysema (HCC) Other emphysema documented in this encounter Care Teams Pmp Project Manager Relationship Specialty Start Date End Date Amparo Rich DO [address] [place] [address] PCP - General Family Medicine 02/21/22 documented as of this encounter
--- OUTSIDE RECORDS SUMMARY | 2023-05-26 07:30 | External Medical Summary | Summary of Care ---
Author Name Unknown Organization [facility] Address [address] [place] [address] Phone [phone] Care Team Providers Care Divider Operator Name Role Phone HilarioAmparo Gina ESCOBAR Primary Care Provider + [phone] Reason for Visit * Reason Comments Acute Encounter Details Date Type Department Care Team Description 01/31/2023 Office Visit [facility] [address] [place] [address] Kimberly Lutz PA-C [address] [place] [address] Shortness of breath* Allergies Active Allergy Reactions [...] MG Sublingual Tablet Sublingual (Nitrostat)Indicatio ns:Atherosclerosis of [place] coronary artery of [place] heart with angina pectoris (HCC) Place [...] single episod e, moderate 03/23/2022 Atherosclerosis of [place] co ronary artery of [place] heart with angina pectoris 03/23/2022 Paroxysmal [...] goal < 8% 014 Coronary atherosclerosis of [place] coron андрей artery 02/21/2012 S/P angioplasty with stent 02/21/2012 Overview: Diagnonal #1. [facility] 02/16/12 Mixed dyslipidemia 01/05/2012 Tobacco use disorder 01/05/2012 Major depressive disorder 01/10/2011 Overview: ICD-10 update of inactive term Thoracic and lumbosacral neuritis 2007 Lumbosacral spondylosis 08/05/2007 Spinal stenosis of lumbar region without neurogenic claudication 08/05/2007 HTN, goal below 140/90 documented as of this encounter (statuses as of 01/31/2023) Resolved Problems Problem Noted Date Resolved Date Atherosclerosis of [place] co ronary artery of [place] heart with angina pectoris 09/07/2017 06/27/2018 [...] [facility] [address] [facility] [address] 04/19/2023 Office Visit Cardiology Enoch Che, DO [address] [place] [address] Scheduled Procedures Name Priority Associated Diagnoses Date/Ti me COLONOSCOPY FLEXIBLE PROXIMAL DIAGNOSTIC Recall Gastrointestinal hemorrhage with melena History of colon polyps ESOPHAGOGASTRODUODENOSCOPY ( EGD), FLEXIBLE, TRANSORAL, DIAGNOSTIC Recall Gastrointestinal hemorrhage with melena History of colon polyps Health Maintenance Due Date Last Done Comments Alpha-1 Antitrypsin 1958 CKD PHOS USE SMARTSET 79026 1960 Zoster Vaccines (2 of 3) 09/24/2012 [...] Additional history exists CKD HGB USE SMARTSET 25395 08/02/202308/02, 11/18/2021, 07/31/2021, Additional history exists COLONOSCOPY-EVERY 5 YRS AGES 18-100 08/02/2023 08/02/2018, 08/02/2018, 08/25/2011 DIABETES-FOOT EXAM 08/02/2023 08/02/2022, 0 07/21/2021, 10/05/2020, Additional history exists O2 ASSESSMENT COMPLETED IN PAST YEAR FOR COPD 12/26/2023 12/25/2022 DTaP,Tdap,and Td Vaccines (2 - Td or Tdap) 10/05/2024 10/05/2014, 03/02/2008 LUNG CANCER SCREENING - USE SMARTSET 41578 Completed 08/12/2019, 06/07/2019, 12/19/2018, Additional history exists [...] Primary documented in this encounter Care Teams Divider Operator Relationship Specialty Start Date End Date Amparo Rich, [address] [place] [address] PCP - General Family Medicine 02/21/22 documented as of this encounter"
--- OUTSIDE RECORDS SUMMARY | 2023-05-26 07:30 | External Medical Summary | Summary of Care ---
Author Name Unknown Organization [facility] Address [address] [place] [address] Phone [phone] Care Team Providers Care Craft Artist Name Role Phone Amparo Rich DO Primary Care Provider [phone] Reason for Visit * Reason Onset Date Comments Advice 09/27/2022 Encounter Details Date Type Department Care Team Description 09/27/2022 Telephone [facility] [place] [address] [place] [address] Amparo Rich DO [address] [place] [address] Advice Allergies Active Allergy Reactions Severity Noted Date Comments Bee Venom High 11/17/2011 Life threating reaction Morphine And Related 11/04/2002 vomitting with all types of pain meds documented as of this encounter (statuses as of 12/28/2022) Medications Medication Sig Dispensed Refills Start Date End Date Status EPIPEN 0.3 MG/0.3ML IJ DEVIIndications:Bee sting One injection into thigh as needed for severe allergic reaction 1 Device 5 10/08/2013 Active Blood Glucose Monitoring Suppl (ACCU-CHEK SOPHIA PLUS) w/Device KITIndications:Type 2 diabetes, HbA1C goal < 8% ([facility]) Use 4 times a day to check [...] B, by GOLD 2017 classification ([facility]) Use 2 L/min(Oxygen) as directed continuous. concentrated and home fill with portability 1 Each 0 01/21/2021 Active Premarin 0.625 MG/GM Vaginal Cream (Estrogens, Conjugated)Indicati ons:Postmenopausal atrophic vaginitis Administer into the vagina 0.5 g before bedtime. As directed.. 42.5 g 07/21/2021 Active Accu-Chek Sophia Plus In Vitro Strip (Glucose Blood)Indications:T ype 2 diabetes, HbA1C goal < 8% ([facility]) Test blood sugar 4 times a day 100 Strip 07/27/2021 Active BD Swab Single Use Regular Pad Use prior to testing 100 Each 07/27/2021 Active OneTouch Delica Lancets 33GIndications:Type 2 diabetes, HbA1C goal < 8% ([facility]) Use to test Blood 100 Each 07/27/2021 [...] ns:Type 2 diabetes, HbA1C goal < 8% ([facility]),HTN, goal below 140/90 Take 1 Tablet by [...] evening meals. 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 up to 3 doses in 15 minutes 25 Tab 11 05/05/2019 10/28/19 23 Discontinu ed(Refill) Folic Acid 1 MG Oral TabletIndications:I liza deficiency anemia, unspecified iron deficiency anemia type Take by mouth 1 Tablet in the morning. 90 Tablet 5 11/18/2021 12/26/19 23 Discontinu ed(Refill) Empagliflozin 25 MG Oral Tablet (Jardiance)Indicati ons:Type 2 diabetes, HbA1C goal < 8% (HCC) Take by mouth 1 Tablet in the morning. 90 Tablet 1 11/18/2021 11/23/19 23 Discontinu ed(Refill) Atorvastatin Calcium 80 MG Oral Tablet (Lipitor)Indication s:Mixed dyslipidemia Take 1 Tablet by mouth in the morning. 90 Tablet 3 08/02/2022 12/26/19 23 Discontinu ed(Refill) Metoprolol Tartrate 50 MG Oral Tablet (Lopressor)Indicati ons:Paroxysmal atrial fibrillation (HCC) Take 1 Tablet by mouth in the morning and 1 Tablet before bedtime. 180 Tablet 1 08/02/2022 12/26/19 23 Discontinu ed(Refill) traZODone HCl 100 MG Oral Tablet (Desyrel)Indication s:Persistent insomnia Take 1 Tablet by mouth at bedtime. 90 Tablet 1 08/02/2022 10/28/19 23 Discontinu ed(Refill) documented as of this encounter (statuses as of 12/28/2022) Active Problems Problem Noted Date Major depressive disorder, single episod e, moderate 03/23/2022 Atherosclerosis of [place] co ronary artery of [place] heart with angina pectoris 03/23/2022 Paroxysmal atrial [...] goal < 8% 014 Coronary atherosclerosis of [place] coron андрей artery 02/21/2012 S/P angioplasty with stent 02/21/2012 Overview: Diagnonal #1. [facility] 02/16/12 Mixed dyslipidemia 01/05/2012 Tobacco use disorder 01/05/2012 Major depressive disorder 01/10/2011 Overview: ICD-10 update of inactive term Thoracic and lumbosacral neuritis 2007 Lumbosacral spondylosis 08/05/2007 Spinal stenosis of lumbar region without neurogenic claudication 08/05/2007 HTN, goal below 140/90 documented as of this encounter (statuses as of 12/28/2022) Resolved Problems Problem Noted Date Resolved Date Atherosclerosis of [place] co ronary artery of [place] heart with angina pectoris 09/07/2017 06/27/2018 Inflammation [...] as of this encounter (statuses as of 12/28/2022) Immunizations Name Administration Dates Next Due COVID-19 [...] Smoking Tobacco: Every Day Cigarettes 1 30 Smokeless Tobacco: Never Alcohol Use Standard Drinks/Week Comments No 0 [...] encounter Miscellaneous Notes * Telephone Encounter - Petra Boles LPN - 12/28/2022 10:39 AM EDT This was filled out completed and sent to [facility] on 10/04/22. Are you willing to complete again? * Telephone Encounter - SAMIR Blackwell - 12/28/2022 9:03 AM EDT PT states that she needs another letter of necessity sent to [facility]. Account number and everything is the same. She states it is due before 01/08. She states that she only gets so much a month and that she is having a hard time keeping up. Please advise: [phone] * Telephone Encounter - Petra Boles LPN - 10/03/2022 10:41 AM EDT This form is still on pcp desk. * Telephone Encounter - SAMIR Moyer - 10/03/2022 10:01 AM EDT Pt calling back regarding previous TE. Please advise. * Telephone Encounter - Lynette Holm LPN - 10/02/2022 11:31 AM EDT Form on provider's desk * Telephone Encounter - SAMIR Carson - 10/02/2022 10:30 AM EDT Patient calling to see if letter has been sent back to [employer]. Please call her back to advise. * Telephone Encounter - SAMIR Lopes - 09/28/2022 3:25 PM EDT Patient has been notified of the message. Patient has no further questions. * Telephone Encounter - Shasta Alicea LPN - 09/28/2022 3:19 PM EDT Attempted to call patient, unable to leave voicemail. If patient calls back please have her call [employer] and request form to be faxed to [phone] * Telephone Encounter - SAMIR Hardwick - 09/28/2022 11:53 AM EDT Pt states that tried to be placed on LIHEAP and was denied. Please advise. * Telephone Encounter - SAMIR Durant - 09/27/2022 9:11 AM EDT Advised patient: "Our providers do not typically send letters to utility companies, but Im happyto send a message to him/her if you wish? " Name on the Utility Bill: Self Type of Utility: [email or web address] Date Needed By: 10/01 Phone Number of Utility Company: [phone] Fax Number of Utility Company: Patient Advised Patient: "Should your provider agree to send the letter, there is a minimum of 5 day turn around for letter requests." Advised Patient: "Should you need additional support, you can go online to apply for the LIHEAP Program through the [place] Department of Human Services website." (https://www.[facility].[place].gov/Services/Assistance/Pages/LIHEAP.aspx) documented in this encounter Plan of Treatment Upcoming Encounters Date Type Specialty Care Team Description 01/15/2023 Office Visit Cardiology Enoch Che, DO [address] [place] [address] 03/28/2023 Office Visit Family Medicine Amparo Rich DO [address] [place] [address] Scheduled Procedures Name Priority Associated Diagnoses Date/Ti me COLONOSCOPY FLEXIBLE PROXIMAL DIAGNOSTIC Recall Gastrointestinal hemorrhage with melena History of colon polyps ESOPHAGOGASTRODUODENOSCOPY ( EGD), FLEXIBLE, TRANSORAL, DIAGNOSTIC Recall Gastrointestinal hemorrhage with melena History of colon polyps Health Maintenance Due Date Last Done Comments Alpha-1 Antitrypsin 1958 CKD PHOS USE SMARTSET 45476 1958 Zoster Vaccines (2 of 3) 09/24/2012 [...] Additional history exists CKD HGB USE SMARTSET 53243 08/02/202308/02, 11/18/2021, 07/31/2021, Additional history exists COLONOSCOPY-EVERY 5 YRS AGES 18-100 08/02/2023 08/02/2018, 08/02/2018, 08/25/2011 DIABETES-FOOT EXAM 08/02/2023 08/02/2022, 0 07/21/2021, 10/05/2020, Additional history exists O2 ASSESSMENT COMPLETED IN PAST YEAR FOR COPD 12/26/2023 12/25/2022 DTaP,Tdap,and Td Vaccines (2 - Td or Tdap) 10/05/2024 10/05/2014, 03/02/2008 LUNG CANCER SCREENING - USE SMARTSET 73489 Completed 08/12/2019, 06/07/2019, 12/19/2018, Additional history exists [...] filedocumented as of this encounter Care Teams Craft Artist Relationship Specialty Start Date End Date Amparo Rich, DO [address], [place] [id number] PCP - General Family Medicine 02/21/22 documented as of this encounter
--- OUTSIDE RECORDS SUMMARY | 2023-05-26 07:30 | External Medical Summary | Summary of Care ---
Author Name Unknown Organization [facility] Address [address] [place] [address] Phone [phone] Care Team Providers Care Header Dock Name Role Phone KingsleyAmparo jackson Gina ESCOBAR Primary Care Provider [phone] Reason for Visit * Reason Comments Outpatient Testing Encounter Details Date Type Department Care Team Description 12/25/2022 Laboratory Laboratory, [place] [address] [place] [address] [place] [address] [place] [address] Atherosclerosis of [place] coronary artery of [place] heart without angina pectoris; Type 2 diabetes, HbA1C goal < 8% (HCC); HTN, goal below 140/90 Allergies Active Allergy Reactions Severity Noted Date [...] KITIndications:Type 2 diabetes, HbA1C goal < 8% (HCC) Use 4 times a day to check [...] MG Sublingual Tablet Sublingual (Nitrostat)Indicatio ns:Atherosclerosis of [place] coronary artery of [place] heart with angina pectoris (HCC) Place 1 [...] single episod e, moderate 03/23/2022 Atherosclerosis of [place] co ronary artery of [place] heart with angina pectoris 03/23/2022 Paroxysmal atrial [...] goal < 8% 014 Coronary atherosclerosis of [place] coron андрей artery 02/21/2012 S/P angioplasty with stent 02/21/2012 Overview: Diagnonal #1. [facility] 02/16/12 Mixed dyslipidemia 01/05/2012 Tobacco use disorder 01/05/2012 Major depressive disorder 01/10/2011 Overview: ICD-10 update of inactive term Thoracic and lumbosacral neuritis 2007 Lumbosacral spondylosis 08/05/2007 Spinal stenosis of lumbar region without neurogenic claudication 08/05/2007 HTN, goal below 140/90 documented as of this encounter (statuses as of 12/25/2022) Resolved Problems Problem Noted Date Resolved Date Atherosclerosis of [place] co ronary artery of [place] heart with angina pectoris 09/07/2017 06/27/2018 Inflammation [...] Team Description 01/15/2023 Office Visit Cardiology Enoch Che DO [address] [place] [address] 03/28/2023 Office Visit Family Medicine Amparo Rich DO [address] [place] [address] Pending Results Name Type Priority Associated Diagnoses Date /Time LIPID PANEL WITH DIRECT LDL IF TG IS HIGH Lab Routine Atherosclerosis of [place] coronary artery of [place] heart without angina pectoris 12/25/2022 11:01 AM EDT HEMOGLOBIN A1C Lab Routine Type 2 diabetes, HbA1C goal < 8% (HCC) 12/25/2022 11:01 AM EDT BASIC METABOLIC PANEL Lab Routine HTN, goal below 140/90 12/25/2022 11:01 AM EDT Scheduled Procedures Name Priority Associated Diagnoses Date/Ti me COLONOSCOPY FLEXIBLE PROXIMAL DIAGNOSTIC Recall Gastrointestinal hemorrhage with melena History of colon polyps ESOPHAGOGASTRODUODENOSCOPY ( EGD), FLEXIBLE, TRANSORAL, DIAGNOSTIC Recall Gastrointestinal hemorrhage with melena History of colon polyps Health Maintenance Due Date Last Done Comments Alpha-1 Antitrypsin 1958 CKD PHOS USE SMARTSET 03568 1960 Zoster Vaccines (2 of 3) 09/24/2012 [...] 05/29/2022, , 03/09/2016 CKD HGB USE SMARTSET 04375 08/02/202308/02, 11/18/2021, 07/31/2021, Additional history exists COLONOSCOPY-EVERY 5 YRS AGES 18-100 08/02/2023 08/02/2018, 08/02/2018, 08/25/2011 DIABETES-FOOT EXAM 08/02/2023 08/02/2022, 0 07/21/2021, 10/05/2020, Additional history exists O2 ASSESSMENT COMPLETED IN PAST YEAR FOR COPD 12/06/2023 12/05/2022 DTaP,Tdap,and Td Vaccines (2 - Td or Tdap) 10/05/2024 10/05/2014, 03/02/2008 LUNG CANCER SCREENING - USE SMARTSET 01736 Completed 08/12/2019, 06/07/2019, 12/19/2018, Additional history exists [...] as of this encounter Visit Diagnoses Diagnosis Atherosclerosis of [place] coronary artery of [place] heart without angina pectoris Type 2 diabetes, HbA1C goal < 8% (HCC) Type II or unspecified type diabetes mellitus without mention of complication, not stated as uncontrolled HTN, goal below 140/90 Unspecified essential hypertension documented in this encounter Care Teams Header Dock Relationship Specialty Start Date End Date Amparo Rich, [address] [place] [address] PCP - General Family Medicine 02/21/22 documented as of this encounter
--- OUTSIDE RECORDS SUMMARY | 2023-05-26 07:30 | External Medical Summary | Summary of Care ---
Author Name Unknown Organization [facility] Address [address] [facility] [place] [address] Phone [phone] Care Team Providers Care Director Global Market Research Name Role Phone Casey Rich DO Primary Care Provider [phone] Reason for Visit * Reason Onset Date Comments Medication Refill 01/29/2023 Encounter Details Date Type Department Care Team Description 01/29/[address] [facility] [address] [place] [address] Casey Rich [address] [place] [address] Persistent insomnia Allergies Active Allergy Reactions Severity Noted Date Comments Bee Venom High 11/17/2011 Life threating reaction Morphine And Related 11/04/2002 vomitting with all types of pain meds documented as of this encounter (statuses as of 01/30/2023) Medications Medication Sig Dispensed Refills Start Date End Date Status EPIPEN 0.3 MG/0.3ML IJ DEVIIndications:Bee sting One injection into thigh as needed for severe allergic reaction 1 Device 5 10/08/2013 Active Blood Glucose Monitoring Suppl (ACCU-CHEK SOPHIA PLUS) w/Device KITIndications:Type 2 diabetes, HbA1C goal < 8% ([facility]) Use 4 times a day [...] B, by GOLD 2017 classification ([facility]) Use 2 L/min(Oxygen) as directed continuous. concentrated and home fill with portability 1 Each 0 01/21/2021 Active Premarin 0.625 MG/GM Vaginal Cream (Estrogens, Conjugated)Indicati ons:Postmenopausal atrophic vaginitis Administer into the vagina 0.5 g before bedtime. As directed.. 42.5 g 5 07/21/2021 Active Accu-Chek Sophia Plus In Vitro Strip (Glucose Blood)Indications:T ype 2 diabetes, HbA1C goal < 8% ([facility]) Test blood sugar 4 times a day 100 Strip 07/27/2021 Active BD Swab Single Use Regular Pad Use prior to testing 100 Each 07/27/2021 Active OneTouch Delica Lancets 33GIndications:Type 2 diabetes, HbA1C goal < 8% ([facility]) Use to test Blood 100 [...] ns:Type 2 diabetes, HbA1C goal < 8% ([facility]),HTN, goal below 140/90 Take 1 [...] MG Sublingual Tablet Sublingual (Nitrostat)Indicati ons:Atherosclerosis of [place] coronary artery of [place] heart with angina pectoris (HCC) Place 1 [...] at bedtime. 90 Tablet 1 01/30/2023 Active traZODone HCl 100 MG Oral Tablet (Desyrel)Indication s:Persistent insomnia Take 1 Tablet by mouth at bedtime. 90 Tablet 1 10/27/2022 01/30/20 23 Discontinu ed(Refill) documented as of this encounter (statuses as of 01/30/2023) Active Problems Problem Noted Date Major depressive disorder, single episod e, moderate 03/23/2022 Atherosclerosis of [place] co ronary artery of [place] heart with angina pectoris 03/23/2022 Paroxysmal atrial [...] goal < 8% 014 Coronary atherosclerosis of [place] coron андрей artery 02/21/2012 S/P angioplasty with stent 02/21/2012 Overview: Diagnonal #1. [facility] 02/16/12 Mixed dyslipidemia 01/05/2012 Tobacco use disorder 01/05/2012 Major depressive disorder 01/10/2011 Overview: ICD-10 update of inactive term Thoracic and lumbosacral neuritis 2007 Lumbosacral spondylosis 08/05/2007 Spinal stenosis of lumbar region without neurogenic claudication 08/05/2007 HTN, goal below 140/90 documented as of this encounter (statuses as of 01/30/2023) Resolved Problems Problem Noted Date Resolved Date Atherosclerosis of [place] co ronary artery of [place] heart with angina pectoris 09/07/2017 06/27/2018 Inflammation [...] as of this encounter (statuses as of 01/30/2023) Immunizations Name Administration Dates Next Due COVID-19 [...] encounter Miscellaneous Notes * Telephone Encounter - Jerrod Schwab, [facility] - 01/30/2023 10:30 AM EDTSigned Prescriptions: Disp Refills traZODone HCl 100 MG Oral Tablet (Desyrel) 90 Tab*1 Sig: Take 1 Tablet by mouth at bedtime. Authorizing Provider: CASEY RICH Ordering User: JERROD SCHWAB * Telephone Encounter - Elizabeth Huber [facility] - 01/29/2023 1:39 PM EDT Did you pend patient's preferred pharmacy and medication before forwarding?yes Pharmacy: [id number] Pending Prescriptions: Disp Refills traZODone HCl 100 MG Oral Tablet (Desyrel)90 Tab*1 Sig: Take 1 Tablet by mouth at bedtime. Last Visit: 12/25/2022 (in office), Visit date not found (telemedicine) Next Visit: 04/12/2023 If no future appointments scheduled, and last appointment is greater than a year ago, please schedule patient for a follow-up appointment Last date the medication was ordered: 10/27/2022 Is this request for a controlled substance?No [...] found in Results Review. Patient Phone Numbers Labs: Lab Results Component [...] Description 04/12/2023 Office Visit Family Medicine Casey Rich, [facility] [address] [facility] [address] 04/19/2023 Office Visit Cardiology Enoch Che, DO [address] [place] [address] Scheduled Procedures Name Priority Associated Diagnoses Date/Ti me COLONOSCOPY FLEXIBLE PROXIMAL DIAGNOSTIC Recall Gastrointestinal hemorrhage with melena History of colon polyps ESOPHAGOGASTRODUODENOSCOPY ( EGD), FLEXIBLE, TRANSORAL, DIAGNOSTIC Recall Gastrointestinal hemorrhage with melena History of colon polyps Health Maintenance Due Date Last Done Comments Alpha-1 Antitrypsin 1958 CKD PHOS USE SMARTSET 66586 1958 Zoster Vaccines (2 of 3) 09/24/2012 [...] Additional history exists CKD HGB USE SMARTSET 48684 08/02/202308/02, 11/18/2021, 07/31/2021, Additional history exists COLONOSCOPY-EVERY 5 YRS AGES 18-100 08/02/2023 08/02/2018, 08/02/2018, 08/25/2011 DIABETES-FOOT EXAM 08/02/2023 08/02/2022, 0 07/21/2021, 10/05/2020, Additional history exists O2 ASSESSMENT COMPLETED IN PAST YEAR FOR COPD 12/26/2023 12/25/2022 DTaP,Tdap,and Td Vaccines (2 - Td or Tdap) 10/05/2024 10/05/2014, 03/02/2008 LUNG CANCER SCREENING - USE SMARTSET 71758 Completed 08/12/2019, 06/07/2019, 12/19/2018, Additional history exists [...] as of this encounter Visit Diagnoses Diagnosis Persistent insomnia Persistent disorder of initiating or maintaining sleep documented in this encounter Care Teams Director Global Market Research Relationship Specialty Start Date End Date Casey Rich, [address] [place] [address] PCP - General Family Medicine 02/21/22 documented as of this encounter
--- OUTSIDE RECORDS SUMMARY | 2023-05-26 07:30 | External Medical Summary ---
Author Name Unknown Address Unknown Organization K01:[facility] [place] - [address] [place] [address] Laboratory Report Ordering Provider Test Date Status BIANKA PEÑA 12/25/2022 11:01:47 Final Observation Date Value Abnormality Reference (Units ) Status HbA1C 12/25/2022 11:01:47 8.0 Above high normal 4. 0-5.6 (%) Final The use of HbA1c to monitor glycemic status is based on normal hemoglobin and HbA composition. This test should not be used in patients with abnormal hemoglobin that affects the half life of the red blood cell or the in vivo glycation rates. Glucose, estimated average 12/25/2022 11:01:47 183 Above high normal <126 (mg/dL) Zion bush Performing Location [facility] [place] - [address] [place] [address]
--- OUTSIDE RECORDS SUMMARY | 2023-05-26 07:30 | External Medical Summary | Summary of Care ---
Author Name Unknown Organization [facility] Address [address] [place] [address] Phone [phone] Care Team Providers Care Snack Bar Attendant Name Role Phone Amparo Rich DO Primary Care Provider [phone] Reason for Visit * Reason Onset Date Comments Advice 09/27/2022 Encounter Details Date Type Department Care Team Description 09/27/2022 Telephone [place] [address] [place] [address] Amparo Rich DO [address] [place] [address] Advice Allergies Active Allergy Reactions [...] 2 diabetes, HbA1C goal < 8% ([facility]) Use 4 times a day to [...] hypoxemia,COPD, group B, by GOLD 2017 classification ([facility]) Use 2 L/min(Oxygen) as directed continuous. concentrated and home fill with portability 1 Each 0 01/21/2021 Active Premarin 0.625 MG/GM Vaginal Cream (Estrogens, Conjugated)Indicati ons:Postmenopausal atrophic vaginitis Administer into the vagina 0.5 g before bedtime. As directed.. 42.5 g 07/21/2021 Active Accu-Chek Sophia Plus In Vitro Strip (Glucose Blood)Indications:T ype 2 diabetes, HbA1C goal < 8% ([facility]) Test blood sugar 4 times a day 100 Strip 07/27/2021 Active BD Swab Single Use Regular Pad Use prior to testing 100 Each 07/27/2021 Active OneTouch Delica Lancets 33GIndications:Type 2 diabetes, HbA1C goal < 8% ([facility]) Use to test Blood 100 Each [...] ns:Type 2 diabetes, HbA1C goal < 8% (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 [facility] 02/16/12 Mixed dyslipidemia 01/05/2012 Tobacco use disorder 01/05/2012 Major depressive disorder 01/10/2011 Overview: ICD-10 update of inactive term Thoracic and lumbosacral neuritis 2007 Lumbosacral spondylosis 08/05/2007 Spinal stenosis of lumbar region without neurogenic claudication 08/05/2007 HTN, goal below 140/90 documented as of this encounter (statuses as of 12/28/2022) Resolved Problems Problem Noted Date Resolved Date Atherosclerosis of [place] co ronary artery of [place] heart with angina pectoris 09/07/2017 06/27/2018 Inflammation [...] Miscellaneous Notes * Telephone Encounter - SAMIR Blackwell - 12/28/2022 9:03 AM EDT PT states that she needs another letter of necessity sent to [employer] [facility]. Account number and everything is the same. She states it is due before 01/08. She states that she only gets so much a month and that she is having a hard time keeping up. Please advise: [phone] * Telephone Encounter - Petra Boles LPN [...] if letter has been sent back to [employer]. Please call her back to advise. * Telephone Encounter - SAMIR Lopes - 09/28/2022 3:25 PM EDT Patient has been notified of the message. Patient has no further questions. * Telephone Encounter - Shasta Alicea LPN - 09/28/2022 3:19 PM EDT Attempted to call patient, unable to leave voicemail. If patient calls back please have her call [employer] and request form to be faxed to [phone] * Telephone Encounter - SAMIR Hardwick - 09/28/2022 11:53 AM EDT Pt states that tried to be placed on LIHEAP and was denied. Please advise. * Telephone Encounter - SAMIR Durant - 09/27/2022 9:11 AM EDT Advised patient: "Our providers do not typically send letters to [employer] companies, but Im happyto send a message to him/her if you wish? " Name on the Utility Bill: Self Type of Utility: [employer] Date Needed By: 10/01 Phone Number of [employer]: [phone] Fax Number of [employer]: Patient Advised Patient: "Should your provider agree to send the letter, there is a minimum of 5 day turn around for letter requests." Advised Patient: "Should you need additional support, you can go online to apply for the LIHEAP Program through the [place] Department of Human Services website." (https://www.[facility].[place].gov/Services/Assistance/Pages/LIHEAP.aspx) documented in this encounter Plan of Treatment Upcoming Encounters Date Type Specialty Care Team Description 01/15/2023 Office Visit Cardiology Enoch Che, DO [address] [place] [address] 03/28/2023 Office Visit [facility] [address] [facility] [address] Scheduled Procedures Name Priority Associated Diagnoses Date/Ti me COLONOSCOPY FLEXIBLE PROXIMAL DIAGNOSTIC Recall Gastrointestinal hemorrhage with melena History of colon polyps ESOPHAGOGASTRODUODENOSCOPY ( EGD), FLEXIBLE, TRANSORAL, DIAGNOSTIC Recall Gastrointestinal hemorrhage with melena History of colon polyps Health Maintenance Due Date Last Done Comments Alpha-1 Antitrypsin 1958 CKD PHOS USE SMARTSET 50848 1958 Zoster Vaccines (2 of 3) 09/24/2012 [...] Additional history exists CKD HGB USE SMARTSET 35226 08/02/202308/02, 11/18/2021, 07/31/2021, Additional history exists COLONOSCOPY-EVERY 5 YRS AGES 18-100 08/02/2023 08/02/2018, 08/02/2018, 08/25/2011 DIABETES-FOOT EXAM 08/02/2023 08/02/2022, 0 07/21/2021, 10/05/2020, Additional history exists O2 ASSESSMENT COMPLETED IN PAST YEAR FOR COPD 12/26/2023 12/25/2022 DTaP,Tdap,and Td Vaccines (2 - Td or Tdap) 10/05/2024 10/05/2014, 03/02/2008 LUNG CANCER SCREENING - USE SMARTSET 41960 Completed 08/12/2019, 06/07/2019, 12/19/2018, Additional history exists [...] filedocumented as of this encounter Care Teams Snack Bar Attendant Relationship Specialty Start Date End Date Amparo Rich, DO [address] [place] [address] PCP - General Family Medicine 02/21/22 documented as of this encounter
--- OUTSIDE RECORDS SUMMARY | 2023-05-26 07:30 | External Medical Summary | Summary of Care ---
Author Name Unknown Organization [facility] Address [address] [place] [address] Phone [phone] Care Team Providers Care Transport Rn Name Role Phone KingsleyAmparo jackson Gina ESCOBAR Primary Care Provider [phone] Reason for Visit * Reason Comments Outpatient Testing Encounter Details Date Type Department Care Team Description 12/25/2022 Laboratory [facility] [address] [place] [address] [facility] [address] [place] [address] Atherosclerosis of [place] coronary artery of [place] heart without angina pectoris; Type 2 diabetes, [...] MG Sublingual Tablet Sublingual (Nitrostat)Indicatio ns:Atherosclerosis of [place] coronary artery of [place] heart with angina pectoris (HCC) Place 1 [...] single episod e, moderate 03/23/2022 Atherosclerosis of [place] co ronary artery of [place] heart with angina pectoris 03/23/2022 Paroxysmal atrial [...] goal < 8% 014 Coronary atherosclerosis of [place] coron андрей artery 02/21/2012 S/P angioplasty with stent 02/21/2012 Overview: Diagnonal #1. 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 09/07/2017 06/27/2018 Inflammation [...] Cardiology Enoch Che DO [address] [place] [address] 03/28/2023 Office Visit Family Medicine Amparo Rich DO [address] [place] [address] Pending Results Name Type Priority Associated Diagnoses Date /Time LIPID PANEL WITH DIRECT LDL IF TG IS HIGH Lab Routine Atherosclerosis of [place] coronary artery of [place] heart without angina pectoris 12/25/2022 11:01 AM [...] Alpha-1 Antitrypsin 1958 CKD PHOS USE SMARTSET 12786 1958 Zoster Vaccines (2 of 3) 09/24/2012 [...] 05/29/2022, , 03/09/2016 CKD HGB USE SMARTSET 11542 08/02/202308/02, 11/18/2021, 07/31/2021, Additional history exists COLONOSCOPY-EVERY 5 YRS AGES 18-100 08/02/2023 08/02/2018, 08/02/2018, 08/25/2011 DIABETES-FOOT EXAM 08/02/2023 08/02/2022, 0 07/21/2021, 10/05/2020, Additional history exists O2 ASSESSMENT COMPLETED IN PAST YEAR FOR COPD 12/06/2023 12/05/2022 DTaP,Tdap,and Td Vaccines (2 - Td or Tdap) 10/05/2024 10/05/2014, 03/02/2008 LUNG CANCER SCREENING - USE SMARTSET 69890 Completed 08/12/2019, 06/07/2019, 12/19/2018, Additional history exists [...] this encounter Visit Diagnoses Diagnosis Atherosclerosis of [place] coronary artery of [place] heart without angina pectoris Type 2 diabetes, HbA1C goal < 8% (HCC) Type II or unspecified type diabetes mellitus without mention of complication, not stated as uncontrolled HTN, goal below 140/90 Unspecified essential hypertension documented in this encounter Care Teams Transport Rn Relationship Specialty Start Date End Date Amparo Rihc, [address] [place] [address] PCP - General Family Medicine 02/21/22 documented as of this encounter
--- OUTSIDE RECORDS SUMMARY | 2023-05-26 07:31 | External Medical Summary | Summary of Care ---
Author Name Unknown Organization [facility] Address [address] [place] [address] Phone [phone] Care Team Providers Care Retirement Consultant Name Role Phone Amparo Rich DO Primary Care Provider [phone] Reason for Visit * Reason Onset Date Comments Health Maintenance 12/05/2022 Encounter Details Date Type Department Care Team Description 12/05/2022 Telephone [place] [address] [place] [address] Amparo Rich DO [address] [place] [address] Health Maintenance Allergies Active Allergy Reactions Severity Noted Date Comments Bee Venom High 11/17/2011 Life threating reaction Morphine And Related 11/04/2002 vomitting with all types of pain meds documented as of this encounter (statuses as of 12/05/2022) Medications Medication Sig Dispensed Refills Start Date End Date Status EPIPEN 0.3 MG/0.3ML IJ DEVIIndications:Bee sting One injection into thigh as needed for severe allergic reaction 1 Device 5 10/08/2013 Active Blood Glucose Monitoring Suppl (ACCU-CHEK SOPHIA PLUS) w/Device KITIndications:Type 2 diabetes, HbA1C goal < 8% ([facility]) Use 4 times a day to check blood sugar. 1 Kit 0 04/24/2019 Active Cyanocobalamin (B-12-SL) 1000 MCG SL TabletIndications:Lo w serum vitamin B12 Place 1,000 mcg under the tongue daily. 90 Tab 3 03/02/2020 Active oxygen IN GASIndications:Noctu rnal hypoxemia 2 L of oxygen while sleeping 1 Each 0 01/20/2021 Active oxygen IN GASIndications:Noctu rnal hypoxemia,COPD, group B, by GOLD 2017 classification ([facility]) Use 2 L/min(Oxygen) as directed continuous. concentrated and home fill with portability 1 Each 0 01/21/2021 Active Premarin 0.625 MG/GM Vaginal Cream (Estrogens, Conjugated)Indicatio ns:Postmenopausal atrophic vaginitis Administer into the vagina 0.5 g before bedtime. As directed.. 42.5 g 07/21/2021 Active Accu-Chek Sophia Plus In Vitro Strip (Glucose Blood)Indications:Ty pe 2 diabetes, HbA1C goal < 8% ([facility]) Test blood sugar 4 times a day 100 Strip 07/27/2021 Active BD Swab Single Use Regular Pad Use prior to testing 100 Each 07/27/2021 Active OneTouch Delica Lancets 33GIndications:Type 2 diabetes, HbA1C goal < 8% ([facility]) Use to test Blood 100 Each 07/27/2021 Active Folic Acid 1 MG Oral TabletIndications:Ir [...] MG Sublingual Tablet Sublingual (Nitrostat)Indicatio ns:Atherosclerosis of [place] coronary artery of [place] heart with angina pectoris (HCC) Place 1 [...] Emergency room. 1 Each 3 11/23/2022 Active Ciprofloxacin HCl 250 MG Oral Tablet (Cipro)Indications:A cute pyelonephritis Take 1 Tablet by mouth in the morning and 1 Tablet before bedtime. Do all this for 3 days. 6 Tablet 0 12/05/2022 3 Active Zoster Vac Recomb Adjuvanted 50 MCG/0.5ML Intramuscular Suspension Reconstituted (Shingrix)Indication s:Need for shingles vaccine Inject 0.5 mL into a large muscle now and repeat dose in 60 to 180 days 1 Each 1 12/05/2022 Active documented as of this encounter (statuses as of 12/05/2022) Active Problems Problem Noted Date Major depressive disorder, single episod e, moderate 03/23/2022 Atherosclerosis of [place] co ronary artery of [place] heart with angina pectoris 03/23/2022 Paroxysmal atrial [...] goal < 8% 014 Coronary atherosclerosis of [place] coron андрей artery 02/21/2012 S/P angioplasty with stent 02/21/2012 Overview: Diagnonal #1. [facility] 02/16/12 Mixed dyslipidemia 01/05/2012 Tobacco use disorder 01/05/2012 Major depressive disorder 01/10/2011 Overview: ICD-10 update of inactive term Thoracic and lumbosacral neuritis 2007 Lumbosacral spondylosis 08/05/2007 Spinal stenosis of lumbar region without neurogenic claudication 08/05/2007 HTN, goal below 140/90 documented as of this encounter (statuses as of 12/05/2022) Resolved Problems Problem Noted Date Resolved Date Atherosclerosis of [place] co ronary artery of [place] heart with angina pectoris 09/07/2017 06/27/2018 Inflammation [...] as of this encounter (statuses as of 12/05/2022) Immunizations Name Administration Dates Next Due COVID-19 [...] encounter Miscellaneous Notes * Telephone Encounter - Loyda Falk LPN - 12/05/2022 2:57 PM EDT Care Gaps Comprehensive Care Outreach Last Office/Telemedicine Visit: 12/05/2022 (in office), Visit date not found (telemedicine) Next Office Visit: 12/25/2022 Hemoglobin AIC Results: Lab Results Component Value Date/Time HEMOGLOBIN A1C - [facility] 8.4 (H) 08/02/2022 01:26 PM HEMOGLOBIN A1C - [facility] 8.6 (H) 11/18/2021 10:10 AM HEMOGLOBIN A1C - [facility] 8.0 (H) 07/21/2021 12:27 PM HEMOGLOBIN A1C - [facility] 7.3 (H) 02/24/2020 07:34 AM HEMOGLOBIN A1C - [facility] 6.7 (H) 08/06/2019 09:57 AM HEMOGLOBIN A1C - [facility] 7.1 (H) 01/29/2019 11:22 AM Reviewed Health Maintenance below: Health Maintenance Topic Date Due CKD PHOS USE SMARTSET 97525 Never done Alpha-1 Antitrypsin Never done Zoster Vaccines (2 of 3) 09/24/2012 DISCUSS TOBACCO CESSATION (REFER TO SMARTSET #3291) 06/01/2016 DXA Scan 07/18/2018 *COPD SEVERITY VERIFIED BY PFT Never done COVID-19 Vaccine (3 - Moderna series) 01/11/2021 Albumin/Creatinine Ratio 11/18/2022 Depression Screening, Annual for Pts 12 and Over 11/18/2022 HbA1c 01/30/2023 GFR 01/30/2023 DIABETES-EYE EXAM 05/29/2023 pcp today Care Gap Outreach Action Taken: Outreach not indicated documented in this encounter Plan of Treatment Upcoming Encounters Date Type Specialty Care Team Description 12/25/2022 Office Visit Family Medicine Amparo Rich, DO [address] [place] [address] Scheduled Procedures Name Priority Associated Diagnoses Date/Ti me COLONOSCOPY FLEXIBLE PROXIMAL DIAGNOSTIC Recall Gastrointestinal hemorrhage with melena History of colon polyps ESOPHAGOGASTRODUODENOSCOPY ( EGD), FLEXIBLE, TRANSORAL, DIAGNOSTIC Recall Gastrointestinal hemorrhage with melena History of colon polyps Health Maintenance Due Date Last Done Comments Alpha-1 Antitrypsin 1958 CKD PHOS USE SMARTSET 21360 1958 Zoster Vaccines (2 of 3) 09/24/2012 [...] 05/29/2022, , 03/09/2016 CKD HGB USE SMARTSET 71340 08/02/202308/02, 11/18/2021, 07/31/2021, Additional history exists COLONOSCOPY-EVERY 5 YRS AGES 18-100 08/02/2023 08/02/2018, 08/02/2018, 08/25/2011 DIABETES-FOOT EXAM 08/02/2023 08/02/2022, 0 07/21/2021, 10/05/2020, Additional history exists O2 ASSESSMENT COMPLETED IN PAST YEAR FOR COPD 10/28/2023 12/05/2022 DTaP,Tdap,and Td Vaccines (2 - Td or Tdap) 10/05/2024 10/05/2014, 03/02/2008 LUNG CANCER SCREENING - USE SMARTSET 41777 Completed 08/12/2019, 06/07/2019, 12/19/2018, Additional history exists [...] filedocumented as of this encounter Care Teams Retirement Consultant Relationship Specialty Start Date End Date Amparo Rich, [address] [facility] [place] [address] PCP - General Family Medicine 02/21/22 documented as of this encounter
--- OUTSIDE RECORDS SUMMARY | 2023-05-26 07:31 | External Medical Summary | Summary of Care ---
Author Name Unknown Organization [facility] Address [address] [facility] [place] [address] Phone [phone] Care Team Providers Care Senior Energy Market Coordinator Name Role Phone Amparo Rich DO Primary Care Provider [phone] Reason for Visit * Reason Onset Date Comments Med Request 12/04/2022 Encounter Details Date Type Department Care Team Description 12/04/2022 Telephone [place] [address] [place] [address] Amparo Rich DO [address] [place] [address] Med Request Allergies Active Allergy Reactions Severity Noted Date Comments Bee Venom High 11/17/2011 Life threating reaction Morphine And Related 11/04/2002 vomitting with all types of pain meds documented as of this encounter (statuses as of 12/08/2022) Medications Medication Sig Dispensed Refills Start Date End Date Status EPIPEN 0.3 MG/0.3ML IJ DEVIIndications:Bee sting One injection into thigh as needed for severe allergic reaction 1 Device 5 10/08/2013 Active Blood Glucose Monitoring Suppl (ACCU-CHEK SOPHIA PLUS) w/Device KITIndications:Type 2 diabetes, HbA1C goal < 8% ([facility]) Use 4 times a day to check [...] by GOLD 2017 classification ([facility]) Use 2 L/min(Oxygen) as directed continuous. concentrated and home fill with portability 1 Each 0 01/21/2021 Active Premarin 0.625 MG/GM Vaginal Cream (Estrogens, Conjugated)Indicatio ns:Postmenopausal atrophic vaginitis Administer into the vagina 0.5 g before bedtime. As directed.. 42.5 g 07/21/2021 Active Accu-Chek Sophia Plus In Vitro Strip (Glucose Blood)Indications:Ty pe 2 diabetes, HbA1C goal < 8% ([facility]) Test blood sugar 4 times a day 100 Strip 07/27/2021 Active BD Swab Single Use Regular Pad Use prior to testing 100 Each 07/27/2021 Active OneTouch Delica Lancets 33GIndications:Type 2 diabetes, HbA1C goal < 8% ([facility]) Use to test Blood 100 Each 07/27/2021 [...] MG Sublingual Tablet Sublingual (Nitrostat)Indicatio ns:Atherosclerosis of [place] coronary artery of [place] heart with angina pectoris (HCC) Place 1 [...] Emergency room. 1 Each 3 11/23/2022 Active documented as of this encounter (statuses as of 12/08/2022) Active Problems Problem Noted Date Major depressive disorder, single episod e, moderate 03/23/2022 Atherosclerosis of [place] co ronary artery of [place] heart with angina pectoris 03/23/2022 Paroxysmal atrial [...] goal < 8% 014 Coronary atherosclerosis of [place] coron андрей artery 02/21/2012 S/P angioplasty with stent 02/21/2012 Overview: Diagnonal #1. 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 Please advise. Thank you, Analia Peacock [facility] Customer Training Specialist 12/08/2022, 9:22 AM * Telephone Encounter - Lynette Holm LPN - 12/06/2022 12:10 PM EDT Pt had appt 12/05/22 * Telephone Encounter - Amparo Acosta, printed circuit board pcb draftsman - 12/04/2022 6:04 PM EDT Patient requesting refills for traMADol (ULTRAM) 50 MG Tablet . Upon chart review, medication is listed as discontinued, with discontinuation reason as "patient preference/discontinuation". Please advise if you wish to continue this therapy for the patient. Juan Manuel [facility] [address] [place], [place] [address]Moody LADD Thank you, Amparo Acosta CPhT Webmethods Architect II [facility]) 12/04/2022,6:04 PM documented in this encounter Plan of Treatment Upcoming Encounters Date Type Specialty Care Team Description 12/25/2022 Office Visit Family Medicine Amparo Rich, [address] [place] [address] Scheduled Procedures Name Priority Associated Diagnoses Date/Ti me COLONOSCOPY FLEXIBLE PROXIMAL DIAGNOSTIC Recall Gastrointestinal hemorrhage with melena History of colon polyps ESOPHAGOGASTRODUODENOSCOPY ( EGD), FLEXIBLE, TRANSORAL, DIAGNOSTIC Recall Gastrointestinal hemorrhage with melena History of colon polyps Health Maintenance Due Date Last Done Comments Alpha-1 Antitrypsin 1958 CKD PHOS USE SMARTSET 12515 1958 Zoster Vaccines (2 of 3) 09/24/2012 [...] 05/29/2022, , 03/09/2016 CKD HGB USE SMARTSET 89495 08/02/202308/02, 11/18/2021, 07/31/2021, Additional history exists COLONOSCOPY-EVERY 5 YRS AGES 18-100 08/02/2023 08/02/2018, 08/02/2018, 08/25/2011 DIABETES-FOOT EXAM 08/02/2023 08/02/2022, 0 07/21/2021, 10/05/2020, Additional history exists O2 ASSESSMENT COMPLETED IN PAST YEAR FOR COPD 12/06/2023 12/05/2022 DTaP,Tdap,and Td Vaccines (2 - Td or Tdap) 10/05/2024 10/05/2014, 03/02/2008 LUNG CANCER SCREENING - USE SMARTSET 59863 Completed 08/12/2019, 06/07/2019, 12/19/2018, Additional history exists [...] as of this encounter Care Teams Senior Energy Market Coordinator Relationship Specialty Start Date End Date Amparo Rich, [address] [place] [address] PCP - General Family Medicine 02/21/22 documented as of this encounter
--- OUTSIDE RECORDS SUMMARY | 2023-05-26 07:31 | External Medical Summary ---
Author Name Unknown Address Unknown Organization [id number]:[facility] [place] [address] [place] [id number] Laboratory Report Ordering Provider Test Date Status LORA BLACKMAN 12/05/2022 09:44:52 Final Observation Date Value Abnormality Reference (Units) Status Bacteria identified in Unspecified specimen by Culture 12/05/2022 09:44:52 No significant growth Final Test: Culture, Urine, Quant itative
Specimen Source: Urine, Clean Catch
Specimen Type: Urine
Specimen Date: 12/05/2022 9:44 AM
Result Date: 12/06/2022 8:51 AM
Result Status: Final result
Resulting Lab: [facility]
[address]
[facility]

CULTURE

No significant growth

null Performing Location [facility] [address] [place] [id number]
--- OUTSIDE RECORDS SUMMARY | 2023-05-26 07:31 | External Medical Summary | Summary of Care ---
Author Name Unknown Organization [facility] Address [address] [facility] [place] [address] Phone [phone] Care Team Providers Care Rice Farmworker Name Role Phone Amparo Rich Primary Care Provider [phone] Reason for Visit * Reason Comments Acute Pt here c/o possible UTI lower back pain. Pt states she had taken AZO for the past two days with no relief. Encounter Details Date Type Department Care Team Description 12/05/2022 Office Visit [facility] [address] [place] [address] Myra Rosa PA-C [address] [place] [address] Acute midline low back pain without sciatica*; Urinary frequency; Acute pyelonephritis; COPD, group B, by GOLD 2017 classification ([facility]); Current moderate episode of major depressive disorder, unspecified whether recurrent ([facility]); Chronic kidney disease, stage 3a ([facility]); Need for shingles vaccine Allergies Active Allergy Reactions Severity Noted Date [...] test Blood 100 Each 5 07/27/2021 Active Folic Acid 1 MG Oral TabletIndications:Ir on deficiency anemia, unspecified iron deficiency anemia type Take by mouth 1 Tablet in the morning. 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 [facility] 02/16/12 Mixed dyslipidemia 01/05/2012 Tobacco use disorder 01/05/2012 Major depressive disorder 01/10/2011 Overview: ICD-10 update of inactive term Thoracic and lumbosacral neuritis 2007 Lumbosacral spondylosis 08/05/2007 Spinal stenosis of lumbar region without neurogenic claudication 08/05/2007 HTN, goal below 140/90 documented as of this encounter (statuses as of 12/05/2022) Resolved Problems Problem Noted Date Resolved Date Atherosclerosis of [place] co ronary artery of [place] heart with angina pectoris 09/07/2017 06/27/2018 Inflammation [...] Tobacco: Never Tobacco Cessation:Ready to Q uit: No; Counseling Given: No Passive Exposure Comments:Pt states only her own. [...] Sign Reading Time Taken Comments Blood Pressure 134/80 12/05/2022 9:05 AM EDT Pulse 80 12/05/2022 9:05 AM EDT Temperature 36.3 C (97.3 F) 12/05/2022 9:05 AM ED T Respiratory Rate 18 12/05/2022 9:05 AM EDT Oxygen Saturation 97% 12/05/2022 9:05 AM EDT Inhaled Oxygen Concentration - - Weight 71.1 kg (156 lb 12.8 oz) 12/05/2022 9:05 AM EDT Height 149.9 cm (4' 11") 12/05/2022 9:05 AM EDT Body Mass Index 31.67 12/05/2022 9:05 AM EDT documented in this encounter Progress Notes * Myra Rosa PA-C - 12/05/2022 9:09 AM EDT Images from the original note were not included. History of Present Illness Amalia Baker is a 82 year old female that presents for Acute (Pt here c/o possible UTI lower back pain. Pt states she had taken AZO for the past two days with no relief.) here for poss kidney infection. noted about 4 days ago that back really started to hurt where kidneys are. She took some azo which helped but as soon as she was done with it,t he pain was back,. No fever, + fatigue. No nausea. Urinating more often. No hematuria. Does want shingix vaccine. Physical Exam Vitals: 12/05/22 0905 Temp: 36.3 C (97.3 F) Pulse: 80 Resp: 18 SpO2: 97% BP: 134/80 BMI: 31.65 BP Readings from Last 3 Encounters: 12/05/22 134/80 10/27/22 118/64 08/02/22 136/80 Wt Readings from Last 3 Encounters: 12/05/22 71.1 kg (156 lb 12.8 oz) 10/27/22 70.9 kg (156 lb 4.8 oz) 08/02/22 71.4 kg (157 lb 8 oz) BMI Readings from Last 3 Encounters: 12/05/22 31.67 kg/m 10/27/22 31.57 kg/m 08/02/22 31.81 kg/m Ht Readings from Last 3 Encounters: 12/05/22 1.499 m (4' 11") 10/27/22 1.499 m (4' 11") 08/02/22 1.499 m (4' 11") General: alert, healthy and no distress Head: Normocephalic, No masses, lesions, tenderness or abnormalities Eye Exam: PERRLA, extraocular movements intact, conjunctiva are pink and non- injected, sclera clear Neck: supple, no adenopathy, no bruits, thyroid normal size, non-tender, without nodularity Heart: regular rate & rhythm, no murmur, no gallops, S-1 normal and S-2 normal Lungs: chest symmetric with normal AP diameter, no chest deformities noted, no chest wall tenderness, lungs clear to auscultation Abdomen: abdomen soft, non-tender, normal bowel sounds and no masses or organomegaly Back: back symmetric, no curvature, no costovertebral angle tenderness, range of motion is normal Extremities: less than 2 second capillary refill, no joint deformities, effusion, or inflammation Skin: skin color, texture, turgor are normal, no rashes or significant lesions I have reviewed the following results: Urinalysis, POC + nitrite Rest is unclear due to azo Assessment and Plan Lower back pain (Primary) - URINALYSIS, POINT OF CARE (ENTER/EDIT) - CULTURE, URINE, QUANTITATIVE Urinary frequency - URINALYSIS, POINT OF CARE (ENTER/EDIT) - CULTURE, URINE, QUANTITATIVE Acute pyelonephritis - Ciprofloxacin HCl 250 MG Oral Tablet (Cipro); Take 1 Tablet by mouth in the morning and 1 Tablet before bedtime. Do all this for 3 days. Wrap-Up Time: I spent a total of 10-19 minutes (exact time 18 mins) on the date of service in preparation, delivery, and documentation of the care provided to Amalia Baker excluding any time spent in the performance of separately billed services. Myra Rosa PA-C 12/05/2022 9:22 AM documented in this encounter Nursing Notes * Tracey Mendieta LPN - 12/05/2022 8:55 AM EDT Chief Complaint Patient presents with Acute Pt here c/o possible UTI lower back pain. Pt states she had taken AZO for the past two days with norelief. Patient has been verbally educated on the need or importance of Surveys: social Needs documented in this encounter Plan of Treatment Upcoming Encounters Date Type Specialty Care Team Description 12/25/2022 Office Visit Family Medicine Amparo Rich, DO [address] [place] [address] Scheduled Orders Name Type Priority Associated Diagnoses Orde r Schedule CULTURE, URINE, QUANTITATIVE Lab Routine Acute midline low back pain without sciatica Urinary frequency Ordered: 12/05/2022 Scheduled Procedures Name Priority Associated Diagnoses Date/Ti me COLONOSCOPY FLEXIBLE PROXIMAL DIAGNOSTIC Recall Gastrointestinal hemorrhage with melena History of colon polyps ESOPHAGOGASTRODUODENOSCOPY ( EGD), FLEXIBLE, TRANSORAL, DIAGNOSTIC Recall Gastrointestinal hemorrhage with melena History of colon polyps Health Maintenance Due Date Last Done Comments Alpha-1 Antitrypsin 1958 CKD PHOS USE SMARTSET 93945 1958 Zoster Vaccines (2 of 3) 09/24/2012 [...] 05/29/2022, , 03/09/2016 CKD HGB USE SMARTSET 41842 08/02/202308/02, 11/18/2021, 07/31/2021, Additional history exists COLONOSCOPY-EVERY 5 YRS AGES 18-100 08/02/2023 08/02/2018, 08/02/2018, 08/25/2011 DIABETES-FOOT EXAM 08/02/2023 08/02/2022, 0 07/21/2021, 10/05/2020, Additional history exists O2 ASSESSMENT COMPLETED IN PAST YEAR FOR COPD 10/28/2023 10/27/2022 DTaP,Tdap,and Td Vaccines (2 - Td or Tdap) 10/05/2024 10/05/2014, 03/02/2008 LUNG CANCER SCREENING - USE SMARTSET [id number] Completed 08/12/2019, 06/07/2019, 12/19/2018, Additional history exists [...] Comments URINALYSIS, POINT OF CARE (ENTER/EDIT) Routine 12/05/2022 Acute midline low back pain without sciatica Urinary frequency documented in this encounter Results * URINALYSIS, POINT OF CARE (ENTER/EDIT) (12/05/2022) Color, Urine Lynette Yellow or Light Yellow Clarity, Urine Clear Clear Glucose, Urine 250 Negative mg/dL Bilirubin, Urine Negative Negative Ketone, Urine Negative Negative mg/dL Specific [place], Urine 1.030 1.003 - 1.030 Blood, Urine Negative Negative pH, Urine 5.5 5.0 - 7.5 units Protein, Urine 30 Negative mg/dL Urobilinogen, Urine 0.2 0.2 - 1.0 mg/dL Nitrite, Urine Positive Negative Esterase, Urine Negative Negative Urine 12/05/2022 Myra Rosa PA-C LAB POINT OF CARE TEST ENTER/EDIT ORDERABLES documented in this encounter Visit Diagnoses Diagnosis Acute midline low back pain without sciatica- Primary Urinary frequency Acute pyelonephritis Acute pyelonephritis without lesion of renal medullary necrosis COPD, group B, by GOLD 2017 classification (HCC) Current moderate episode of major depressive disorder, unspecified whether recurrent (HCC) Chronic kidney disease, stage 3a (HCC) Need for shingles vaccine Need for prophylactic vaccination and inoculation against other viral diseases documented in this encounter Care Teams Rice Farmworker Relationship Specialty Start Date End Date Amparo Rich, [address] [place] [id number] PCP - General Family Medicine 02/21/22 documented as of this encounter
--- OUTSIDE RECORDS SUMMARY | 2023-05-26 07:31 | External Medical Summary | Summary of Care ---
Author Name Unknown Organization [facility] Address [address] [facility] [address] Phone [phone] Care Team Providers Care Director Of Learning Name Role Phone Amparo Rich DO Primary Care Provider [phone] Reason for Visit * Reason Onset Date Comments Med Request 12/04/2022 Encounter Details Date Type Department Care Team Description 12/04/2022 Telephone [place] [address] [place] [address] Amparo Rich DO [address] [place] [address] Med Request Allergies Active [...] KITIndications:Type 2 diabetes, HbA1C goal < 8% ([facility]) Use 4 times a day to check blood sugar. 1 Kit 0 04/24/2019 Active Cyanocobalamin (B-12-SL) 1000 MCG SL TabletIndications:Lo w serum vitamin B12 Place 1,000 mcg under the tongue daily. 90 Tab 3 03/02/2020 Active oxygen IN GASIndications:Noctu rnal hypoxemia 2 L of oxygen while sleeping 1 Each 0 01/20/2021 Active oxygen IN GASIndications:Noctu rnal hypoxemia,COPD, group B, by GOLD 2017 classification ([facility]) Use 2 L/min(Oxygen) as directed continuous. concentrated and home fill with portability 1 Each 0 01/21/2021 Active Premarin 0.625 MG/GM Vaginal Cream (Estrogens, Conjugated)Indicatio ns:Postmenopausal atrophic vaginitis Administer into the vagina 0.5 g before bedtime. As directed.. 42.5 g 07/21/2021 Active Accu-Chek Sophia Plus In Vitro Strip (Glucose Blood)Indications:Ty pe 2 diabetes, HbA1C goal < 8% ([facility]) Test blood sugar 4 times a day 100 Strip 07/27/2021 Active BD Swab Single Use Regular Pad Use prior to testing 100 Each 07/27/2021 Active OneTouch Delica Lancets 33GIndications:Type 2 diabetes, HbA1C goal < 8% ([facility]) Use to test Blood 100 Each 07/27/2021 [...] MG Sublingual Tablet Sublingual (Nitrostat)Indicatio ns:Atherosclerosis of [place] coronary artery of [place] [...] with stent 02/21/2012 Overview: Diagnonal #1. [facility] 02/16/12 Mixed dyslipidemia 01/05/2012 Tobacco [...] Telephone Encounter - Petra Boles LPN - 12/08/2022 1:27 PM EDT Patient states she needs this refilled from Dr Rich. She is taking it (sparingly)and doesn't know why it was d/c from her medication list. She says she's been out of it for a few days now. * Telephone Encounter - Analia Peacock CPhT - 12/08/2022 9:22 AM EDT Pt calling in to check status of tramadol. Please advise. Thank you, Analia Peacock [facility] Brick Layer 12/08/2022, 9:22 AM * Telephone Encounter - Lynette Holm LPN - 12/06/2022 12:10 PM EDT Pt had appt 12/05/22 * Telephone Encounter - TASNEEM Land - 12/04/2022 6:04 PM EDT Patient requesting refills for traMADol (ULTRAM) 50 MG Tablet . Upon chart review, medication is listed as discontinued, with discontinuation reason as "patient preference/discontinuation". Please advise if you wish to continue this therapy for the patient. [facility] [address] [place] [address] JULEE Thank you, Amparo Acosta CPhT Director Of Strategic Sales II [facility]) 12/04/2022,6:04 PM documented in this encounter Plan of Treatment Upcoming Encounters Date Type Specialty Care Team Description 12/25/2022 Office Visit Family Medicine Amparo Rich, [address] [place], [place] [id number] Scheduled Procedures Name Priority Associated Diagnoses Date/Ti me COLONOSCOPY FLEXIBLE PROXIMAL DIAGNOSTIC Recall Gastrointestinal hemorrhage with melena History of colon polyps ESOPHAGOGASTRODUODENOSCOPY ( EGD), FLEXIBLE, TRANSORAL, DIAGNOSTIC Recall Gastrointestinal hemorrhage with melena History of colon polyps Health Maintenance Due Date Last Done Comments Alpha-1 Antitrypsin 1958 CKD PHOS USE SMARTSET 40500 1960 Zoster Vaccines (2 of 3) 09/24/2012 [...] 05/29/2022, , 03/09/2016 CKD HGB USE SMARTSET 56466 08/02/202308/02, 11/18/2021, 07/31/2021, Additional history exists COLONOSCOPY-EVERY 5 YRS AGES 18-100 08/02/2023 08/02/2018, 08/02/2018, 08/25/2011 DIABETES-FOOT EXAM 08/02/2023 08/02/2022, 0 07/21/2021, 10/05/2020, Additional history exists O2 ASSESSMENT COMPLETED IN PAST YEAR FOR COPD 12/06/2023 12/05/2022 DTaP,Tdap,and Td Vaccines (2 - Td or Tdap) 10/05/2024 10/05/2014, 03/02/2008 LUNG CANCER SCREENING - USE SMARTSET 25082 Completed 08/12/2019, 06/07/2019, 12/19/2018, Additional history exists [...] filedocumented as of this encounter Care Teams Director Of Learning Relationship Specialty Start Date End Date [facility]paro Rich[facility] [address] [facility] [id number] PCP - General Family Medicine 02/21/22 documented as of this encounter
--- OUTSIDE RECORDS SUMMARY | 2023-05-26 07:31 | External Medical Summary | Summary of Care ---
Author Name Unknown Organization [facility] Address [address] [facility] [place] [address] Phone [phone] Care Team Providers Care Fiber Worker Name Role Phone Amparo Rich Primary Care Provider [phone] Reason for Visit * Reason Comments Acute Pt here c/o possible UTI lower back pain. Pt states she had taken AZO for the past two days with no relief. Encounter Details Date Type Department Care Team Description 12/05/2022 Office Visit [facility] [address] [place] [address] Myra Rosa PA-C [address] [place] [address] Acute midline low back pain without sciatica*; Urinary frequency; Acute pyelonephritis; COPD, group B, by GOLD 2017 classification ([facility]); Current moderate episode of major depressive disorder, unspecified whether recurrent ([facility]); Chronic kidney disease, stage 3a ([facility]); Need for shingles vaccine Allergies Active Allergy [...] < 8% ([facility]) Use 4 times a day to [...] 2017 classification ([facility]) Use 2 L/min(Oxygen) as directed continuous. concentrated and home fill with portability 1 Each 0 01/21/2021 Active Premarin 0.625 MG/GM Vaginal Cream (Estrogens, Conjugated)Indicatio ns:Postmenopausal atrophic vaginitis Administer into the vagina 0.5 g before bedtime. As directed.. 42.5 g 5 07/21/2021 Active Accu-Chek Sophia Plus In Vitro Strip (Glucose Blood)Indications:Ty pe 2 diabetes, HbA1C goal < 8% ([facility]) Test blood sugar 4 times a day 100 Strip 5 07/27/2021 Active BD Swab Single Use Regular Pad Use prior to testing 100 Each 07/27/2021 Active OneTouch Delica Lancets 33GIndications:Type 2 diabetes, HbA1C goal < 8% ([facility]) Use to test Blood 100 Each 5 [...] single episod e, moderate 03/23/2022 Atherosclerosis of [place] co ronary artery of [...] angioplasty with stent 02/21/2012 Overview: Diagnonal #1. [facility] 02/16/12 Mixed dyslipidemia 01/05/2012 Tobacco use disorder 01/05/2012 Major depressive disorder 01/10/2011 Overview: ICD-10 update of inactive term Thoracic and lumbosacral neuritis 2007 Lumbosacral spondylosis 08/05/2007 Spinal stenosis of lumbar region without neurogenic claudication 08/05/2007 HTN, goal below 140/90 documented as of this encounter (statuses as of 12/05/2022) Resolved Problems Problem Noted Date Resolved Date Atherosclerosis of [place] co ronary artery of [...] Family Medicine Amparo Rich, DO [address] [place] [address] Scheduled Orders Name Type Priority Associated Diagnoses [...] Alpha-1 Antitrypsin 1958 CKD PHOS USE SMARTSET 42251 1960 Zoster Vaccines (2 of 3) 09/24/2012 [...] 05/29/2022, , 03/09/2016 CKD HGB USE SMARTSET 54795 08/02/202308/02, 11/18/2021, 07/31/2021, Additional history exists COLONOSCOPY-EVERY 5 YRS AGES 18-100 08/02/2023 08/02/2018, 08/02/2018, 08/25/2011 DIABETES-FOOT EXAM 08/02/2023 08/02/2022, 0 07/21/2021, 10/05/2020, Additional history exists O2 ASSESSMENT COMPLETED IN PAST YEAR FOR COPD 10/28/2023 10/27/2022 DTaP,Tdap,and Td Vaccines (2 - Td or Tdap) 10/05/2024 10/05/2014, 03/02/2008 LUNG CANCER SCREENING - USE SMARTSET [id number] Completed 08/12/2019, 06/07/2019, 12/19/2018, Additional history exists [...] Negative Ketone, Urine Negative Negative mg/dL Specific [place], Urine 1.030 1.003 - 1.030 Blood, Urine [...] diseases documented in this encounter Care Teams Fiber Worker Relationship Specialty Start Date End Date Amparo Rich, [address] [place] [phone] PCP - General Family Medicine 02/21/22 documented as of this encounter
--- OUTSIDE RECORDS SUMMARY | 2023-05-26 07:31 | External Medical Summary | Summary of Care ---
Author Name Unknown Organization [facility] Address [address] [place] [address] Phone [phone] Care Team Providers Care Video Game Developer Name Role Phone Amparo Rich DO Primary Care Provider [phone] Reason for Visit * Reason Onset Date Comments Advice 12/11/2022 Encounter Details Date Type Department Care Team Description 12/11/2022 Telephone [place] [address] [place] [address] Amparo Rich DO [address] [place] [address] Advice Allergies Active Allergy Reactions Severity Noted Date Comments Bee Venom High 11/17/2011 Life threating reaction Morphine And Related 11/04/2002 vomitting with all types of pain meds documented as of this encounter (statuses as of 12/19/2022) Medications Medication Sig Dispensed Refills Start Date [...] MG Sublingual Tablet Sublingual (Nitrostat)Indicatio ns:Atherosclerosis of [place] coronary artery of [place] heart with angina pectoris (HCC) Place 1 [...] Tablet before bedtime. 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 [facility] 02/16/12 Mixed dyslipidemia 01/05/2012 Tobacco use disorder 01/05/2012 Major depressive disorder 01/10/2011 Overview: ICD-10 update of inactive term Thoracic and lumbosacral neuritis 2007 Lumbosacral spondylosis 08/05/2007 Spinal stenosis of lumbar region without neurogenic claudication 08/05/2007 HTN, goal below 140/90 documented as of this encounter (statuses as of 12/19/2022) Resolved Problems Problem Noted Date Resolved Date Atherosclerosis of [place] co ronary artery of [place] heart with angina pectoris 09/07/2017 06/27/2018 Inflammation [...] as of this encounter (statuses as of 12/19/2022) Immunizations Name Administration Dates Next Due COVID-19 [...] Telephone Encounter - Lynette Holm LPN - 12/19/2022 12:54 PM EDT Did PA for 30 day supply - came back saying PA not needed Called pharmacy - they stated that they were only able to fill a 7 day supply because that is all they had in stock Pt aware - she originally said that she would wait for [facility] to get it in stock. Then she said that she would call around to other pharmacies and let us know * Telephone Encounter - Gabby Toribio LPN - 12/15/2022 4:36 PM EDT Patient aware trying to get prior auth. It appears this was started, can you confirm we started theprior auth? * Telephone Encounter - Amparo Rich DO - 12/13/2022 8:41 AM EDT We can try prior auth, and pls let pt know * Telephone Encounter - Lynette Holm LPN - 12/12/2022 12:17 PM EDT We can try PA if needed * Telephone Encounter - SAMIR Otto - 12/11/2022 12:29 PM EDT The pt went to the pharmacy in [place] to leaf size picker her medication and the pharmacy said the pt is Opiod Naive and her insurance will pay for 7 days worth of medication. The pt was unable to leaf size picker the full prescription. documented in this encounter Plan of Treatment Upcoming Encounters Date Type Specialty Care Team Description 12/25/2022 Office Visit Family Medicine Amparo Rich DO [facility] [address] [place] [address] Scheduled Procedures Name Priority Associated Diagnoses Date/Ti me COLONOSCOPY FLEXIBLE PROXIMAL DIAGNOSTIC Recall Gastrointestinal hemorrhage with melena History of colon polyps ESOPHAGOGASTRODUODENOSCOPY ( EGD), FLEXIBLE, TRANSORAL, DIAGNOSTIC Recall Gastrointestinal hemorrhage with melena History of colon polyps Health Maintenance Due Date Last Done Comments Alpha-1 Antitrypsin 1958 CKD PHOS USE SMARTSET 97833 1958 Zoster Vaccines (2 of 3) 09/24/2012 [...] 05/29/2022, , 03/09/2016 CKD HGB USE SMARTSET 82248 08/02/202308/02, 11/18/2021, 07/31/2021, Additional history exists COLONOSCOPY-EVERY 5 YRS AGES 18-100 08/02/2023 08/02/2018, 08/02/2018, 08/25/2011 DIABETES-FOOT EXAM 08/02/2023 08/02/2022, 0 07/21/2021, 10/05/2020, Additional history exists O2 ASSESSMENT COMPLETED IN PAST YEAR FOR COPD 12/06/2023 12/05/2022 DTaP,Tdap,and Td Vaccines (2 - Td or Tdap) 10/05/2024 10/05/2014, 03/02/2008 LUNG CANCER SCREENING - USE SMARTSET 14218 Completed 08/12/2019, 06/07/2019, 12/19/2018, Additional history exists [...] filedocumented as of this encounter Care Teams Video Game Developer Relationship Specialty Start Date End Date Amparo Rich, [address] [place] [address] PCP - General Family Medicine 02/21/22 documented as of this encounter
--- OUTSIDE RECORDS SUMMARY | 2023-05-26 07:31 | External Medical Summary | Summary of Care ---
Author Name Unknown Organization [facility] Address [address] [facility] [place] [place] [address] Phone [phone] Care Team Providers Care Slab Puller Name Role Phone Amparo Rich DO Primary Care Provider [phone] Reason for Visit * Reason Onset Date Comments Med Request 12/04/2022 Encounter Details Date Type Department Care Team Description 12/04/2022 Telephone [address] [place] [address] Amparo Rich DO [address] [place] [address] Med Request Allergies Active Allergy Reactions Severity Noted Date Comments Bee Venom High 11/17/2011 Life threating reaction Morphine And Related 11/04/2002 vomitting with all types of pain meds documented as of this encounter (statuses as of 12/06/2022) Medications Medication Sig Dispensed Refills Start Date End Date Status EPIPEN 0.3 MG/0.3ML IJ DEVIIndications:Bee sting One injection into thigh as needed for severe allergic reaction 1 Device 5 10/08/2013 Active Blood Glucose Monitoring Suppl (ACCU-CHEK SOPHIA PLUS) w/Device KITIndications:Type 2 diabetes, HbA1C goal < 8% ([facility]) Use 4 times a [...] hypoxemia,COPD, group B, by GOLD 2017 classification ([facility]) Use 2 L/min(Oxygen) as directed continuous. concentrated and home fill with portability 1 Each 0 01/21/2021 Active Premarin 0.625 MG/GM Vaginal Cream (Estrogens, Conjugated)Indicatio ns:Postmenopausal atrophic vaginitis Administer into the vagina 0.5 g before bedtime. As directed.. 42.5 g 07/21/2021 Active Accu-Chek Sophia Plus In Vitro Strip (Glucose Blood)Indications:Ty pe 2 diabetes, HbA1C goal < 8% ([facility]) Test blood sugar 4 times a day 100 Strip 07/27/2021 Active BD Swab Single Use Regular Pad Use prior to testing 100 Each 07/27/2021 Active OneTouch Delica Lancets 33GIndications:Type 2 diabetes, HbA1C goal < 8% ([facility]) Use to test Blood [...] MG Sublingual Tablet Sublingual (Nitrostat)Indicatio ns:Atherosclerosis of [place] coronary artery of [place] heart with angina pectoris (HCC) Place 1 [...] as of this encounter (statuses as of 12/06/2022) Active Problems Problem Noted Date Major depressive disorder, single episod e, moderate 03/23/2022 Atherosclerosis of [place] co ronary artery of [place] heart with angina pectoris 03/23/2022 Paroxysmal atrial [...] goal < 8% 014 Coronary atherosclerosis of [place] coron андрей artery 02/21/2012 S/P angioplasty with [...] as of this encounter (statuses as of 12/06/2022) Resolved Problems Problem Noted Date Resolved Date Atherosclerosis of [place] co ronary artery of [place] heart with angina pectoris 09/07/2017 06/27/2018 Inflammation [...] as of this encounter (statuses as of 12/06/2022) Immunizations Name Administration Dates Next Due COVID-19 [...] appt 12/05/22 * Telephone Encounter - Amparo Acosta coater - 12/04/2022 6:04 PM EDT Patient requesting refills for traMADol (ULTRAM) 50 MG Tablet . Upon chart review, medication is listed as discontinued, with discontinuation reason as "patient preference/discontinuation". Please advise if you wish to continue this therapy for the patient. E [facility] [address] [place], [place] [address] - [place] Thank you, Amparo Acosta CPhT Nut Roaster Helper II [facility] ([facility]) (formerly Telepharmacy) 12/04/2022,6:04 PM documented in this encounter Plan of Treatment Upcoming Encounters Date Type Specialty Care Team Description 12/25/2022 Office Visit Family Medicine Amparo Rich, DO [address] [place] [address] Scheduled Procedures Name Priority Associated Diagnoses Date/Ti me COLONOSCOPY FLEXIBLE PROXIMAL DIAGNOSTIC Recall Gastrointestinal hemorrhage with melena History of colon polyps ESOPHAGOGASTRODUODENOSCOPY ( EGD), FLEXIBLE, TRANSORAL, DIAGNOSTIC Recall Gastrointestinal hemorrhage with melena History of colon polyps Health Maintenance Due Date Last Done Comments Alpha-1 Antitrypsin 1958 CKD PHOS USE SMARTSET 74653 1958 Zoster Vaccines (2 of 3) 09/24/2012 [...] 05/29/2022, , 03/09/2016 CKD HGB USE SMARTSET 29237 08/02/202308/02, 11/18/2021, 07/31/2021, Additional history exists COLONOSCOPY-EVERY 5 YRS AGES 18-100 08/02/2023 08/02/2018, 08/02/2018, 08/25/2011 DIABETES-FOOT EXAM 08/02/2023 08/02/2022, 0 07/21/2021, 10/05/2020, Additional history exists O2 ASSESSMENT COMPLETED IN PAST YEAR FOR COPD 12/06/2023 12/05/2022 DTaP,Tdap,and Td Vaccines (2 - Td or Tdap) 10/05/2024 10/05/2014, 03/02/2008 LUNG CANCER SCREENING - USE SMARTSET 27626 Completed 08/12/2019, 06/07/2019, 12/19/2018, Additional history exists [...] filedocumented as of this encounter Care Teams Slab Puller Relationship Specialty Start Date End Date Amparo Rich, DO [address], [place] [id number] PCP - General Family Medicine 02/21/22 documented as of this encounter
--- OUTSIDE RECORDS SUMMARY | 2023-05-26 07:31 | External Medical Summary | Summary of Care ---
Author Name Unknown Organization [facility] Address [address] [facility] [place] [address] Phone [phone] Care Team Providers Care Sed Middle School Teacher Name Role Phone Amparo Rich DO Primary Care Provider [phone] Reason for Visit * Reason Onset Date Comments Med Request 12/04/2022 Encounter Details Date Type Department Care Team Description 12/04/2022 Telephone [address] [place] [address] Amparo Rich DO [address] [place] [address] Med Request Allergies Active Allergy [...] < 8% ([facility]) Use 4 times a day to [...] 2017 classification ([facility]) Use 2 L/min(Oxygen) as directed continuous. concentrated and home fill with portability 1 Each 0 01/21/2021 Active Premarin 0.625 MG/GM Vaginal Cream (Estrogens, Conjugated)Indicatio ns:Postmenopausal atrophic vaginitis Administer into the vagina 0.5 g before bedtime. As directed.. 42.5 g 07/21/2021 Active Accu-Chek Sophia Plus In Vitro Strip (Glucose Blood)Indications:Ty pe 2 diabetes, HbA1C goal < 8% ([facility]) Test blood sugar 4 times a day 100 Strip 07/27/2021 Active BD Swab Single Use Regular Pad Use prior to testing 100 Each 07/27/2021 Active OneTouch Delica Lancets 33GIndications:Type 2 diabetes, HbA1C goal < 8% ([facility]) Use to test Blood 100 Each 07/27/2021 [...] Tablet Sublingual (Nitrostat)Indicatio ns:Atherosclerosis of [place] coronary artery of [place] heart with angina pectoris (HCC) Place 1 [...] single episod e, moderate 03/23/2022 Atherosclerosis of [place] co ronary artery of [place] heart with angina pectoris 03/23/2022 Paroxysmal atrial [...] 8% 014 Coronary atherosclerosis of [place] coron андрей artery 02/21/2012 S/P angioplasty with [...] Problem Noted Date Resolved Date Atherosclerosis of [place] co ronary artery of [place] heart with angina pectoris 09/07/2017 06/27/2018 Inflammation [...] encounter Miscellaneous Notes * Telephone Encounter - TASNEEM Land - 12/04/2022 6:04 PM EDT Patient requesting refills for traMADol (ULTRAM) 50 MG Tablet . Upon chart review, medication is listed as discontinued, with discontinuation reason as "patient preference/discontinuation". Please advise if you wish to continue this therapy for the patient. E [facility] [address] [place], [place] [address] - [place] Thank you, Amparo Acosta CPhT Filler Picker II [facility] ([facility]) (formerly Telepharmacy) 12/04/2022,6:04 PM documented in this encounter Plan of Treatment Upcoming Encounters Date Type Specialty Care Team Description 12/25/2022 Office Visit Family Medicine Amparo Rich DO [address] [facility] [place] [address] Scheduled Procedures Name Priority Associated Diagnoses Date/Ti me COLONOSCOPY FLEXIBLE PROXIMAL DIAGNOSTIC Recall Gastrointestinal hemorrhage with melena History of colon polyps ESOPHAGOGASTRODUODENOSCOPY ( EGD), FLEXIBLE, TRANSORAL, DIAGNOSTIC Recall Gastrointestinal hemorrhage with melena History of colon polyps Health Maintenance Due Date Last Done Comments Alpha-1 Antitrypsin 1958 CKD PHOS USE SMARTSET 45143 1960 Zoster Vaccines (2 of 3) 09/24/2012 [...] 05/29/2022, , 03/09/2016 CKD HGB USE SMARTSET 92894 08/02/202308/02, 11/18/2021, 07/31/2021, Additional history exists COLONOSCOPY-EVERY 5 YRS AGES 18-100 08/02/2023 08/02/2018, 08/02/2018, 08/25/2011 DIABETES-FOOT EXAM 08/02/2023 08/02/2022, 0 07/21/2021, 10/05/2020, Additional history exists O2 ASSESSMENT COMPLETED IN PAST YEAR FOR COPD 10/28/2023 12/05/2022 DTaP,Tdap,and Td Vaccines (2 - Td or Tdap) 10/05/2024 10/05/2014, 03/02/2008 LUNG CANCER SCREENING - USE SMARTSET 57710 Completed 08/12/2019, 06/07/2019, 12/19/2018, Additional history exists [...] filedocumented as of this encounter Care Teams Sed Middle School Teacher Relationship Specialty Start Date End Date Amparo Rich, [address] [place] [address] PCP - General Family Medicine 02/21/22 documented as of this encounter
--- OUTSIDE RECORDS SUMMARY | 2023-05-26 07:31 | External Medical Summary | Summary of Care ---
Author Name Unknown Organization [facility] Address [address] [facility] [place] [address] Phone [phone] Care Team Providers Care Load Tallier Name Role Phone Casey Rich DO Primary Care Provider + [phone] Reason for Referral * Medication Prior Authorization - Pending Review Specialty Diagnoses / Procedures Referred By Sheldon vega Referred To Contact Diagnoses Chronic pain syndrome MEDICATION USE AGREEMENT Casey Rich DO [address] [place] [address] Referral ID Status Reason Start Date Expiration Date V isits Requested Visits Authorized [id number] Pending Review [phone] Reason for Visit * Reason Onset Date Comments Med Request 12/04/2022 Encounter Details Date Type Department Care Team Description 12/04/2022 Telephone [place] [address] [place] [address] Casey Rich DO [address] [place] [address] Med Request Allergies Active Allergy Reactions Severity Noted Date Comments Bee Venom High 11/17/2011 Life threating reaction Morphine And Related 11/04/2002 vomitting with all types of pain meds documented as of this encounter (statuses as of 12/11/2022) Medications Medication Sig Dispensed Refills Start Date [...] by GOLD 2017 classification ([facility]) Use 2 L/min(Oxygen) as directed continuous. [...] MG Sublingual Tablet Sublingual (Nitrostat)Indicatio ns:Atherosclerosis of [place] coronary artery of [place] heart with angina pectoris (HCC) Place [...] Emergency room. 1 Each 3 11/23/2022 Active traMADol HCl 50 MG Oral Tablet (Ultram)Indications: Chronic pain syndrome,MEDICATION USE AGREEMENT Take 1 Tablet by mouth in the morning and 1 Tablet at noon and 1 Tablet before bedtime. 90 Tablet 0 12/08/2022 Active documented as of this encounter (statuses as of 12/11/2022) Active Problems Problem Noted Date Major depressive disorder, single episod e, moderate 03/23/2022 Atherosclerosis of [place] co ronary artery of [place] heart with angina pectoris 03/23/2022 Paroxysmal [...] goal < 8% 014 Coronary atherosclerosis of [place] coron андрей artery 02/21/2012 S/P angioplasty [...] as of this encounter (statuses as of 12/11/2022) Resolved Problems Problem Noted Date Resolved Date Atherosclerosis of [place] co ronary artery of [place] heart with angina pectoris 09/07/2017 06/27/2018 [...] as of this encounter (statuses as of 12/11/2022) Immunizations Name Administration Dates Next Due COVID-19 [...] Telephone Encounter - Lynette Holm LPN - 12/11/2022 10:23 AM EDT Patient aware and verbalized understanding * Addendum Note - Casey Rich DO - 12/08/2022 1:35 PM EDTAddended by: CASEY RICH on: 12/08/2022 01:35 PM Modules accepted: Orders * Telephone Encounter - Casey Rich DO - 12/08/2022 1:35 PM EDT Refilled * Telephone Encounter - Petra Boles LPN [...] [facility] ([facility]) (formerly Telepharmacy) Centrifuge Separator Tender 12/08/2022, 9:22 AM * Telephone Encounter - [...] continue this therapy for the patient. E [facility] [address] [place], [place] [address]Moody LADD Thank you, Casey Acosta CPhT Dust Collector Ore Crushing II [facility] ([facility]) (formerly Telepharmacy) 12/04/2022,6:04 PM documented in this encounter Plan of Treatment Upcoming Encounters Date Type Specialty Care Team Description 12/25/2022 Office Visit Family Medicine Casey Rich, DO [address] [place] [address] Scheduled Procedures Name Priority Associated Diagnoses Date/Ti me COLONOSCOPY FLEXIBLE PROXIMAL DIAGNOSTIC Recall Gastrointestinal hemorrhage with melena History of colon polyps ESOPHAGOGASTRODUODENOSCOPY ( EGD), FLEXIBLE, TRANSORAL, DIAGNOSTIC Recall Gastrointestinal hemorrhage with melena History of colon polyps Health Maintenance Due Date Last Done Comments Alpha-1 Antitrypsin 1958 CKD PHOS USE SMARTSET 59177 1958 Zoster Vaccines (2 of 3) 09/24/2012 [...] 05/29/2022, , 03/09/2016 CKD HGB USE SMARTSET 27103 08/02/202308/02, 11/18/2021, 07/31/2021, Additional history exists COLONOSCOPY-EVERY 5 YRS AGES 18-100 08/02/2023 08/02/2018, 08/02/2018, 08/25/2011 DIABETES-FOOT EXAM 08/02/2023 08/02/2022, 0 07/21/2021, 10/05/2020, Additional history exists O2 ASSESSMENT COMPLETED IN PAST YEAR FOR COPD 12/06/2023 12/05/2022 DTaP,Tdap,and Td Vaccines (2 - Td or Tdap) 10/05/2024 10/05/2014, 03/02/2008 LUNG CANCER SCREENING - USE SMARTSET 81162 Completed 08/12/2019, 06/07/2019, 12/19/2018, Additional history exists [...] AGREEMENT documented in this encounter Care Teams Load Tallier Relationship Specialty Start Date End Date Casey Rich, [address] [place] [address] PCP - General Family Medicine 02/21/22 documented as of this encounter
--- OUTSIDE RECORDS SUMMARY | 2023-05-26 07:31 | External Medical Summary | Summary of Care ---
Author Name Unknown Organization [facility] Address [address] [facility] [place] [address] Phone [phone] Care Team Providers Care Microsoft Solutions Architect Name Role Phone Casey Rich DO Primary Care Provider [phone] Reason for Visit * Reason Onset Date Comments Medication Refill 12/19/2022 Encounter Details Date Type Department Care Team Description 12/19/2022 Refill [place] [address] [place] [address] Casey Rich [address] [place] [address] Chronic pain syndrome; MEDICATION USE AGREEMENT Allergies Active Allergy Reactions Severity Noted Date Comments Bee Venom High 11/17/2011 Life threating reaction Morphine And Related 11/04/2002 vomitting with all types of pain meds documented as of this encounter (statuses as of 12/20/2022) Medications Medication Sig Dispensed Refills Start Date End Date Status EPIPEN 0.3 MG/0.3ML IJ DEVIIndications:Bee sting One injection into thigh as needed for severe allergic reaction 1 Device 5 10/08/2013 Active Blood Glucose Monitoring Suppl (ACCU-CHEK SOPHIA PLUS) w/Device KITIndications:Type 2 diabetes, HbA1C goal < 8% ([facility]) Use 4 times a day [...] group B, by GOLD 2017 classification ([facility]) Use 2 L/min(Oxygen) as directed continuous. concentrated and home fill with portability 1 Each 0 01/21/2021 Active Premarin 0.625 MG/GM Vaginal Cream (Estrogens, Conjugated)Indicati ons:Postmenopausal atrophic vaginitis Administer into the vagina 0.5 g before bedtime. As directed.. 42.5 g 07/21/2021 Active Accu-Chek Sophia Plus In Vitro Strip (Glucose Blood)Indications:T ype 2 diabetes, HbA1C goal < 8% ([facility]) Test blood sugar 4 times a day 100 Strip 07/27/2021 Active BD Swab Single Use Regular Pad Use prior to testing 100 Each 07/27/2021 Active OneTouch Delica Lancets 33GIndications:Type 2 diabetes, HbA1C goal < 8% ([facility]) Use to test Blood 100 [...] MG Sublingual Tablet Sublingual (Nitrostat)Indicati ons:Atherosclerosis of [place] coronary artery of [place] heart with angina pectoris (HCC) Place 1 [...] as of this encounter (statuses as of 12/20/2022) Active Problems Problem Noted Date Major depressive disorder, single episod e, moderate 03/23/2022 Atherosclerosis of [place] co ronary artery of [place] heart with angina pectoris 03/23/2022 Paroxysmal atrial [...] goal < 8% 014 Coronary atherosclerosis of [place] coron андрей artery 02/21/2012 S/P angioplasty with stent 02/21/2012 Overview: [facility] 02/16/12 Mixed dyslipidemia 01/05/2012 Tobacco use disorder 01/05/2012 Major depressive disorder 01/10/2011 Overview: ICD-10 update of inactive term Thoracic and lumbosacral neuritis 2007 Lumbosacral spondylosis 08/05/2007 Spinal stenosis of lumbar region without neurogenic claudication 08/05/2007 HTN, goal below 140/90 documented as of this encounter (statuses as of 12/20/2022) Resolved Problems Problem Noted Date Resolved Date Atherosclerosis of [place] co ronary artery of [place] heart with angina pectoris 09/07/2017 06/27/2018 Inflammation [...] as of this encounter (statuses as of 12/20/2022) Immunizations Name Administration Dates Next Due COVID-19 [...] RICH * Telephone Encounter - Rangel Cano [facility] - 12/20/2022 11:38 AM EDT Pending Prescriptions: Disp Refills traMADol HCl 50 MG Oral Tablet (Ultram) 90 Tab*0 Sig: Take 1 Tablet by mouth in the morning and 1 Tablet at noon and 1 Tablet before bedtime. * Telephone Encounter - Rangel Cano [facility] - 12/20/2022 11:37 AM EDT I have reviewed the patients controlled substance dispensing history in the Prescription Drug Monitoring Program in compliance with the [facility] regulations before prescribing a controlled [...] due for refill: 12/17/22 Pharmacy: [facility] #[id number] [address] [facility] Is this request for a controlled substance? [...] [facility]ized Clinical Pharmacy Services ([facility]) (formerly Telepharmacy) [phone] 12/20/2022, 11:37 AM * Telephone Encounter - Ni [facility] - 12/19/2022 1:23 PM EDT Please reroute Rx to [facility][id number]. Pending Prescriptions: Disp Refills traMADol HCl 50 [...] Visit Family Medicine Casey Rich, DO [address] [place] [address] Scheduled Procedures Name Priority Associated Diagnoses Date/Ti me COLONOSCOPY FLEXIBLE PROXIMAL DIAGNOSTIC Recall Gastrointestinal hemorrhage with melena History of colon polyps ESOPHAGOGASTRODUODENOSCOPY ( EGD), FLEXIBLE, TRANSORAL, DIAGNOSTIC Recall Gastrointestinal hemorrhage with melena History of colon polyps Health Maintenance Due Date Last Done Comments Alpha-1 Antitrypsin 1958 CKD PHOS USE SMARTSET 66092 1958 Zoster Vaccines (2 of 3) 09/24/2012 [...] 05/29/2022, , 03/09/2016 CKD HGB USE SMARTSET 48611 08/02/202308/02, 11/18/2021, 07/31/2021, Additional history exists COLONOSCOPY-EVERY 5 YRS AGES 18-100 08/02/2023 08/02/2018, 08/02/2018, 08/25/2011 DIABETES-FOOT EXAM 08/02/2023 08/02/2022, 0 07/21/2021, 10/05/2020, Additional history exists O2 ASSESSMENT COMPLETED IN PAST YEAR FOR COPD 12/06/2023 12/05/2022 DTaP,Tdap,and Td Vaccines (2 - Td or Tdap) 10/05/2024 10/05/2014, 03/02/2008 LUNG CANCER SCREENING - USE SMARTSET 79409 Completed 08/12/2019, 06/07/2019, 12/19/2018, Additional history exists [...] AGREEMENT documented in this encounter Care Teams Microsoft Solutions Architect Relationship Specialty Start Date End Date Casey Rich, DO [address] [place] [address] PCP - General Family Medicine 02/21/22 documented as of this encounter
--- OUTSIDE RECORDS SUMMARY | 2023-05-26 07:31 | External Medical Summary | Summary of Care ---
Author Name Unknown Organization [facility] Address [address] [facility] [place] [address] Phone [phone] Care Team Providers Care Welder Production Line Gas Name Role Phone Casey Rich DO Primary Care Provider [phone] Reason for Referral * Medication Prior Authorization - Pending Review Specialty Diagnoses / Procedures Referred By Sheldon vega Referred To Contact Diagnoses Chronic pain syndrome MEDICATION USE AGREEMENT Casey Rich DO [address] [place] [address] Referral ID Status Reason Start Date Expiration Date V isits Requested Visits Authorized [id number] Pending Review [phone] Reason for Visit * Reason Onset Date Comments Med Request 12/04/2022 Encounter Details Date Type Department Care Team Description 12/04/2022 Telephone [place] [address] [place] [address] Casey Rich DO [address] [place] [address] Med Request Allergies Active Allergy [...] MG Sublingual Tablet Sublingual (Nitrostat)Indicatio ns:Atherosclerosis of [place] coronary artery of [place] heart with angina pectoris (HCC) Place 1 [...] single episod e, moderate 03/23/2022 Atherosclerosis of [place] co ronary artery of [place] heart with angina pectoris 03/23/2022 Paroxysmal atrial [...] goal < 8% 014 Coronary atherosclerosis of [place] coron андрей artery 02/21/2012 S/P angioplasty with [...] Problem Noted Date Resolved Date Atherosclerosis of [place] co ronary artery of [place] heart with angina pectoris 09/07/2017 06/27/2018 Inflammation [...] Miscellaneous Notes * Telephone Encounter - SAMIR Lopes - 12/11/2022 11:26 AM EDT Patient calling in to verify pharmacy. Information was reviewed with patient. * Telephone Encounter - Lynette Holm LPN - 12/11/2022 10:23 AM EDT Patient aware and verbalized understanding * Addendum Note - Casey Rich DO - 12/08/2022 1:35 PM EDTAddended by: CASEY RICH on: 12/08/2022 01:35 PM Modules accepted: Orders * Telephone Encounter - Casey Rich DO - 12/08/2022 1:35 PM EDT Refilled * Telephone Encounter - Perta Boles LPN - 12/08/2022 1:27 PM EDT [...] [facility] ([facility]) (formerly Telepharmacy) Mellowing Machine Operator 12/08/2022, 9:22 AM * Telephone Encounter - [...] continue this therapy for the patient. E [facility] [address] [place] [address] [place] Thank you, Casey Acosta CPhT Upholstery Trimmer II [facility] ([facility]) (formerly Telepharmacy) 12/04/2022,6:04 PM documented in this encounter Plan of Treatment Upcoming Encounters Date Type Specialty Care Team Description 12/25/2022 Office Visit Family Medicine Casey Rich, [address] [place] [address] Scheduled Procedures Name Priority Associated Diagnoses Date/Ti me COLONOSCOPY FLEXIBLE PROXIMAL DIAGNOSTIC Recall Gastrointestinal hemorrhage with melena History of colon polyps ESOPHAGOGASTRODUODENOSCOPY ( EGD), FLEXIBLE, TRANSORAL, DIAGNOSTIC Recall Gastrointestinal hemorrhage with melena History of colon polyps Health Maintenance Due Date Last Done Comments Alpha-1 Antitrypsin 1958 CKD PHOS USE SMARTSET 90213 1958 Zoster Vaccines (2 of 3) 09/24/2012 [...] 05/29/2022, , 03/09/2016 CKD HGB USE SMARTSET 97250 08/02/202308/02, 11/18/2021, 07/31/2021, Additional history exists COLONOSCOPY-EVERY 5 YRS AGES 18-100 08/02/2023 08/02/2018, 08/02/2018, 08/25/2011 DIABETES-FOOT EXAM 08/02/2023 08/02/2022, 0 07/21/2021, 10/05/2020, Additional history exists O2 ASSESSMENT COMPLETED IN PAST YEAR FOR COPD 12/06/2023 12/05/2022 DTaP,Tdap,and Td Vaccines (2 - Td or Tdap) 10/05/2024 10/05/2014, 03/02/2008 LUNG CANCER SCREENING - USE SMARTSET 22683 Completed 08/12/2019, 06/07/2019, 12/19/2018, Additional history exists [...] AGREEMENT documented in this encounter Care Teams Welder Production Line Gas Relationship Specialty Start Date End Date Casey Rich, [address] [place] [address] PCP - General Family Medicine 02/21/22 documented as of this encounter
--- OUTSIDE RECORDS SUMMARY | 2023-05-26 07:31 | External Medical Summary | Summary of Care ---
Author Name Unknown Organization [facility] Address [address] [facility] [place] [address] Phone [phone] Care Team Providers Care Tube Coverer Name Role Phone Casey Rich DO Primary Care Provider + [phone] Reason for Referral * Medication Prior Authorization - Pending Review Specialty Diagnoses / Procedures Referred By Sheldon vega Referred To Contact Diagnoses Chronic pain syndrome MEDICATION USE AGREEMENT Casey Rich DO [address] [place] [address] Referral ID Status Reason Start Date Expiration Date V isits Requested Visits Authorized [id number] Pending Review 999 999 Reason for Visit * Reason Onset Date Comments Med Request 12/04/2022 Encounter Details Date Type Department Care Team Description 12/04/2022 Telephone [place] [address] [place] [address] Casey Rich DO [address] [place] [address] Med Request Allergies Active Allergy [...] MG Sublingual Tablet Sublingual (Nitrostat)Indicatio ns: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 [facility] 02/16/12 Mixed dyslipidemia 01/05/2012 Tobacco use disorder 01/05/2012 Major depressive disorder 01/10/2011 Overview: ICD-10 update of inactive term Thoracic and lumbosacral neuritis 2007 Lumbosacral spondylosis 08/05/2007 Spinal stenosis of lumbar region without neurogenic claudication 08/05/2007 HTN, goal below 140/90 documented as of this encounter (statuses as of 12/08/2022) Resolved Problems Problem Noted Date Resolved Date Atherosclerosis of iroquois co ronary artery of iroquois heart with angina pectoris 09/07/2017 06/27/2018 Inflammation [...] encounter Miscellaneous Notes * Addendum Note - DO Neeraj Lubin 12/08/2022 1:35 PM EDTAddended by: CASEY RICH [...] [facility]) Academic Tutor 12/08/2022, 9:22 AM * Telephone Encounter - [...] continue this therapy for the patient. [facility] [address] [place], [place] [address]HIWOT LADD Thank you, Casey Acosta CPhT Lsat Instructor II [facility] ([facility]) 12/04/2022,6:04 PM documented in this encounter Plan of Treatment Upcoming Encounters Date Type Specialty Care Team Description 12/25/2022 Office Visit Family Medicine Casey Rich, [address] [place] [address] Scheduled Procedures Name Priority Associated Diagnoses Date/Ti me COLONOSCOPY FLEXIBLE PROXIMAL DIAGNOSTIC Recall Gastrointestinal hemorrhage with melena History of colon polyps ESOPHAGOGASTRODUODENOSCOPY ( EGD), FLEXIBLE, TRANSORAL, DIAGNOSTIC Recall Gastrointestinal hemorrhage with melena History of colon polyps Health Maintenance Due Date Last Done Comments Alpha-1 Antitrypsin 1960 CKD PHOS USE SMARTSET 53873 1960 Zoster Vaccines (2 of 3) 09/24/2012 [...] 05/29/2022, , 03/09/2016 CKD HGB USE SMARTSET 13669 08/02/202308/02, 11/18/2021, 07/31/2021, Additional history exists COLONOSCOPY-EVERY 5 YRS AGES 18-100 08/02/2023 08/02/2018, 08/02/2018, 08/25/2011 DIABETES-FOOT EXAM 08/02/2023 08/02/2022, 0 07/21/2021, 10/05/2020, Additional history exists O2 ASSESSMENT COMPLETED IN PAST YEAR FOR COPD 12/06/2023 12/05/2022 DTaP,Tdap,and Td Vaccines (2 - Td or Tdap) 10/05/2024 10/05/2014, 03/02/2008 LUNG CANCER SCREENING - USE SMARTSET [id number] Completed 08/12/2019, 06/07/2019, 12/19/2018, Additional history exists [...] AGREEMENT documented in this encounter Care Teams Tube Coverer Relationship Specialty Start Date End Date Casey Rich, [address] [place] [address] PCP - General Family Medicine 02/21/22 documented as of this encounter
[2023-05-26] MEDS ORDERED: ACETAMINOPHEN 325 MG TAB PO STA (07:33)
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
[2023-05-26] MEDS ORDERED: METOPROLOL TARTRATE 1 MG/ML VIAL IV PRN ×2 (09:01→13:52)
--- NOTE | 2023-05-26 09:39 | XRay Report ---
XR chest 1V portable CLINICAL HISTORY: Chest pain, nonspecific COMPARISON STUDY: Chest radiograph April 06, 2023. FINDINGS: Surgical anchors within the right humeral head are incidentally noted. There is no pneumoth orax or pleural effusion. Cardiomegaly is unchanged. There is pulmonary vascular congestion without o vert pulmonary edema. There is no consolidation to suggest pneumonia. IMPRESSION: Cardiomegaly with pulmonary vascular congestion. ACT 112: Negative or not required by law. Electronically signed by: Pravin Arnold M.D. 05/26/2023 9:38 AM
[2023-05-26 10:23] LABS: Basophils # (auto) 0.06 K/uL (0.00-0.20); Basophils % (auto) 0.7 %; Eosinophils # (auto) 0.15 K/uL (0.00-0.50); Eosinophils % (auto) 1.6 %; Hemoglobin 13.9 g/dl (12.0-16.0); Immature Granulocytes # (auto) 0.03 K/uL (0.01-0.20); Immature Granulocytes % (auto) 0.3 %; Lymphocytes # (auto) 2.27 K/uL (1.20-3.40); Lymphocytes % (auto) 24.9 %; Mean Corpuscular Hgb Conc 32.3 g/dL (32.0-36.0); Mean Corpuscular Volume 83.5 fL (80.0-100.0); Mean Platelet Volume 9.9 fL (9.4-12.4); Monocytes % (auto) 6.6 %; Neutrophils # (auto) 6.01 K/uL (1.40-6.50); Neutrophils % (auto) 65.9 %; Platelet Count 323 K/uL (130-400); RDW Standard Deviation 49.1 fL (36.4-46.3); Red Blood Count 5.15 M/uL (4.20-5.40); White Blood Count 9.12 K/ul (4.8-10.8)
[2023-05-26 10:39] LABS: Albumin Globulin Ratio 1.2 (0.9-2); Albumin Level 3.8 gm/dl (3.4-5.0); BUN Creatinine Ratio 10.8 (10-20); Bilirubin,Total 1.4 mg/dl (0.2-1.0); Calcium 8.8 mg/dl (8.6-10.3); Creatinine Clr Calc Pharmacy 44.8 ml/min; Est GFR (African American) 77.2 ml/min; Est GFR (Non-African American) 66.6 ml/min; Globulin 3.2 gm/dl (2.5-4.0); Potassium 3.2 mmol/L (3.5-5.1)
[2023-05-26 10:44] LABS: Troponin I High Sensitivity 13.6 pg/ml (0-14)
[2023-05-26] MEDS ORDERED: POTASSIUM CHLORIDE CRTAB 20 MEQ TABCR PO ONE ×2 (11:51→17:00)
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
--- NOTE | 2023-05-26 12:04 | Electrocardiogram Report ---
Test Reason : Blood Pressure : / mmHG Vent. Rate : 128 BPM Atrial Rate : 000 BPM P-R Int : 000 ms QRS Dur : 066 ms QT Int : 320 ms P-R-T Axes : 000 043 044 degrees QTc Int : 467 ms Atrial fibrillation with rapid ventricular response Low voltage QRS Septal infarct (cited on or before 11-MAR-2023) Abnormal ECG When compared with ECG of 12-MAR-2023 06:27, Vent. rate has increased BY 56 BPM Questionable change in initial forces of Septal leads Nonspecific T wave abnormality now evident in Inferior leads Confirmed by Adam Dang ([id number]) on 05/26/2023 12:03:45 PM Referred By: Confirmed By:Adam Dang
[2023-05-26 12:05] LABS: Magnesium 1.9 mg/dl (1.7-2.4)
[2023-05-26 12:35] LABS: Thyroid Stimulating Hormone 2.078 uIu/ml (0.300-4.500)
[2023-05-26] MEDS ORDERED: METOPROLOL SUCC 50MG EXT REL TAB PO STA (13:39)
[2023-05-26] MEDS ORDERED: busPIRone 5 MG TAB PO PRN (13:52)
[2023-05-26] MEDS ORDERED: CARBOHYDRATES FOR HYPOGLYCEMIA PO PRN (13:52)
[2023-05-26] MEDS ORDERED: ACETAMINOPHEN 325 MG TAB PO PRN (13:52)
[2023-05-26] MEDS ORDERED: GLUCOSE 40% GEL 15 GM TUBE PO PRN (13:52)
[2023-05-26] MEDS ORDERED: GLUCAGON FOR INJ 1 MG VIAL SQ PRN (13:52)
[2023-05-26] MEDS ORDERED: GLUCOSE 10 TAB/TUBE PO PRN (13:52)
[2023-05-26] MEDS ORDERED: POLYETHYLENE (MIRALAX) 17 GM PACK PO PRN (13:52)
[2023-05-26] MEDS ORDERED: DEXTROSE 50% 50 ML SYRINGE IV PRN (13:52)
[2023-05-26] MEDS ORDERED: oxyCODONE/ACETAMINOPHEN 5mg/325mg TAB PO PRN (13:52)
[2023-05-26] MEDS ORDERED: HEPARIN SOD 5,000 UNIT/0.5 ML VIAL SQ SCH (14:00)
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
[2023-05-26] MEDS ORDERED: INSULIN ASPART PER UNIT CHARGE SC SCH (16:30)
[2023-05-26] MEDS ORDERED: ATORVASTATIN 40 MG TAB PO SCH (21:00)
[2023-05-26] MEDS ORDERED: METOPROLOL SUCC 50MG EXT REL TAB PO SCH (21:00)
[2023-05-26] MEDS ORDERED: LANTUS PER UNIT CHARGE SQ SCH (21:00)
[2023-05-26] MEDS ORDERED: traZODone HCL 100 MG TAB PO SCH (21:00)
[2023-05-27] MEDS ORDERED: CYANOCOBALAMIN (B-12) 500 MCG TABLET PO SCH (09:00)
[2023-05-27] MEDS ORDERED: lisinopril 10 MG TAB PO SCH (09:00)
[2023-05-27] MEDS ORDERED: ASPIRIN 81 MG ECTAB PO SCH (09:00)
[2023-05-27] MEDS ORDERED: SERTRALINE HCL 50 MG TABLET PO SCH (09:00)
[2023-05-27] MEDS ORDERED: GABAPENTIN 800 MG TAB PO SCH (09:00)
[2023-05-27] MEDS ORDERED: FOLIC ACID 1 MG TAB PO SCH (09:00)
[2023-05-28] MEDS ORDERED: FUROSEMIDE 40 MG TAB PO SCH (09:00)
== END 2023-05-26 14:46 | disposition left against medical advice (07) | DRG 310 ==
LOC: ED 07:17 → INTOOBSV 12:05 → EDINP 12:05

== ENCOUNTER 2023-05-29 19:35 | Observation (INO) ==
--- NOTE | 2023-05-29 20:07 | XRay Report ---
SINGLE VIEW CHEST CLINICAL HISTORY: Atypical chest pain. FINDINGS: An AP, portable, upright chest radiograph is compared to study dated 05/26/2023. The heart i s enlarged noting atherosclerotic calcification of the thoracic aorta. There is pulmonary vascular co ngestion. Chronic interstitial thickening is similar to previous. Airspace opacities are present in b oth lung bases. Trace pleural effusions are suspected. No pneumothorax is seen. The skeletal structur es are osteopenic. There is chronic deformity of the right proximal humerus with surgical anchors in the right humeral head. IMPRESSION: 1. Cardiomegaly with pulmonary vascular congestion. 2. Suspect trace pleural effusions. 3. Dependent airspace opacities could represent scarring/atelectasis versus an infectious/inflammator y pneumonitis. Clinical correlation will be required and radiographic follow-up to resolution is talisha mmended ACT 112: Negative or not required by law. Electronically signed by: Dario Stallings M.D. 05/29/2023 8:04 PM
[2023-05-29 20:13] LABS: Basophils # (auto) 0.06 K/uL (0.00-0.20); Basophils % (auto) 0.7 %; Eosinophils # (auto) 0.19 K/uL (0.00-0.50); Eosinophils % (auto) 2.3 %; Hematocrit (blood only) 41.6 % (37.0-47.0); Hemoglobin 13.8 g/dl (12.0-16.0); Immature Granulocytes % (auto) 1.2 %; Lymphocytes # (auto) 2.26 K/uL (1.20-3.40); Lymphocytes % (auto) 26.8 %; Mean Corpuscular Hemoglobin 27.7 pg (25.0-34.0); Mean Corpuscular Hgb Conc 33.2 g/dL (32.0-36.0); Mean Corpuscular Volume 83.5 fL (80.0-100.0); Mean Platelet Volume 9.5 fL (9.4-12.4); Monocytes # (auto) 0.58 K/uL (0.11-0.59); Monocytes % (auto) 6.9 %; Neutrophils # (auto) 5.24 K/uL (1.40-6.50); Neutrophils % (auto) 62.1 %; Platelet Count 320 K/uL (130-400); RDW Coefficient of Variation 16.4 % (11.5-14.5); RDW Standard Deviation 48.9 fL (36.4-46.3); Red Blood Count 4.98 M/uL (4.20-5.40); White Blood Count 8.43 K/ul (4.8-10.8)
[2023-05-29] MEDS ORDERED: ASPIRIN CHEW 324 MG PO STA (20:15)
[2023-05-29] MEDS ORDERED: SODIUM CHLORIDE 0.9% 500 ML IV STA (20:15)
--- NOTE | 2023-05-29 20:17 | Emergency Department Note ---
Impression & Plan Atrial fibrillation with rapid ventricular response ED Provider Note NAME: JAKE HAYES AGE: 82 SEX: F : 1940 ARRIVES VIA: Walk-In INFORMANT: Patient ED PROVIDER(S): Elgin Connell DO CHIEF COMPLAINT: chest pain HPI: Patient is an 82-year-old female with a past medical history of A-fib RVR, heart failure with preserved ejection fraction, CKD, obesity, symptomatic anemia with a GI bleed that presents to the ER for chest pain. She notes anytime she is up moving around she gets chest pain she feels her heart racing. She does get a little shortness of breath. No arm or jaw pain. No belly pain. No swelling of the legs. No dysuria, urgency, or frequency. No other exacerbating or remitting factors. ADDITIONAL HISTORY OBTAINED: Per HPI Chronic Medical/Social Conditions Affecting Care: Per HPI PAST MEDICAL HISTORY:See Below PAST SURGICAL HISTORY:See Below FAMILY HISTORY:See Below SOCIAL HISTORY:See Below HOME MEDICATIONS:See Below ALLERGIES:See Below VITALS:See Below PHYSICAL EXAMINATION: GENERAL: Sitting up in bed, alert, well appearing, well nourished, no distress, non-toxic EYE EXAM: normal conjunctiva. OROPHARYNX: no exudate, no erythema, lips, buccal mucosa, and tongue normal and mucous membranes are moist NECK: supple, no nuchal rigidity, no adenopathy, non-tender LUNGS: Clear to auscultation. Normal chest wall mechanics HEART: Tachycardic and regular regular S1 normal and S2 normal ABDOMEN: abdomen soft, non-tender, normo-active bowel sounds, no masses, no rebound or guarding. UPPER EXTREMITIES: upper extremities are grossly normal. LOWER EXTREMITIES: Calves are equal bilaterally NEURO EXAM: Normal sensorium, cranial nerves II-XII grossly intact, normal speech, no gross weakness of arms, no gross weakness of legs. MEDICAL DECISION MAKING: Patient is an 82-year-old female who presents ER for chest pain shortness of breath as well as feeling her heart race. IV was established blood work was obtained. Currently has no chest pain. Labs show no significant leukocytosis or anemia. BMP with mild hypokalemia at 3. Bilirubin LFTs were unremarkable. Troponin was negative. Lipase was normal. EKG consistent with A-fib with RVR. Chest x-ray with a small effusion. Patient was given IV Lopressor. Heart rate trended down from the 150s to the low 100s. She was updated bedside. Discussed the case with the hospitalist for further evaluation management treatment. External Records Reviewed: Admitted on May 26 for A-fib with RVR noncompliance Consults/Care Managements Discussions: Per [facility] Triage Nursing notes reviewed. Limited review of prior medical records performed Vital Signs: reviewed and remarkable for hypertensive and tachycardic Differential diagnosis: Cardiac ischemia, aortic dissection, pulmonary embolism, pneumothorax, pneumonia, pericarditis, myocarditis, esophageal rupture, GERD, cholecystitis, pancreatitis, musculoskeletal, as well as other pathologies. ER treatment provided: See below Diagnostics interpreted by me include EKG and cardiac monitoring as listed below: -Cardiac Monitoring: An order was placed for continuous cardiac monitoring. The monitor shows a rate of 145 with Afib rhythm. -ECG: A-fib RVR rate 140 Normal axis No PVCs ST depressions in the lateral leads -Laboratory studies:Interpreted by me as stated above in MDM and shown below. Imaging studies: Xrays: As interpreted by me: Portable AP upright 1 view of the chest shows pleural effusion CTs show: none Procedures:none Critical Care: I have personally spent 31 minutes of critical care time in the direct management of this patient. This includes bedside care, interpretation of diagnostic studies, and testing, discussion with consultants, patient, and family members, and other required patient management activities. This 31 minutes is in excess of all separately billable procedures. Past Med/Surg History Medical History Major depressive disorder Lumbosacral spondylosis CKD (chronic kidney disease), stage III Diabetic polyneuropathy associated with type 2 diabetes mellitus Centrilobular emphysema Wheezing Failure of outpatient treatment Flu-like symptoms Atrial flutter with rapid ventricular response CHF (congestive heart failure) PUD (peptic ulcer disease) Paroxysmal atrial fibrillation Smoker Obesity Nocturnal hypoxemia Per records CAD (coronary artery disease) S/p PCI with BMS to D1 in 2011 COPD (chronic obstructive pulmonary disease) Per records Diabetes mellitus, type 2 Osteoarthritis History of kidney stones GERD (gastroesophageal reflux disease) Hyperlipidemia Hypertension Surgical History S/P angioplasty with stent History of cystoscopy History of colonoscopy History of hysterectomy History of repair of rotator cuff RT History of tooth extraction History of tonsillectomy and adenoidectomy History of cataract surgery RT/LEFT History of heart artery stent 1 STENT PLACED to D1 in 2011 Family History Son Family history of diabetes mellitus Other No family history of adverse response to anesthesia Social History Smoking Status: Former smoker Tobacco Type: Cigarettes Cigarettes Per Day: 20 PER DAY; Second Hand Exposure: No; Do You Dip or Chew Tobacco: No; Hx Alcohol Use: No Hx Substance Use: No Preferred Language: Greenlandic Communication Ability: Effective 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 Beliefs That Will Affect Care: None Current Living Situation: Alone Feels Safe at Home: Yes Assistive Devices: Cane and Walker Allergies Allergies Allergy/AdvReac Type Severity Reaction Status Date / Time codeine Allergy Mild SICK Verified 05/26/23 10:18 propoxyphene Allergy Mild SICK Verified 05/26/23 10:18 BEE STING Allergy Severe Anaphylaxis Uncoded 05/26/23 10:18 Home Meds Home Medications Medication Instructions Recorded Confirmed cyanocobalamin (vitamin B-12) 1,000 mcg PO QAM 10/07/20 05/29/23 1,000 mcg tablet gabapentin 800 mg tablet 800 mg PO QAM 10/07/20 05/29/23 lisinopril 10 mg tablet 10 mg PO QAM 10/07/20 05/29/23 atorvastatin 80 mg tablet 80 mg PO PM 01/21/21 05/29/23 empagliflozin 25 mg tablet 25 mg PO QAM 01/21/21 05/29/23 (Jardiance) metformin 500 mg tablet 500 mg PO BID 01/21/21 05/29/23 sertraline 25 mg tablet 25 mg PO QAM 01/21/21 05/29/23 folic acid 1 mg tablet 1 mg PO QAM 03/06/23 05/29/23 aspirin 81 mg tablet 81 mg PO QAM 05/26/23 05/29/23 buspirone 5 mg tablet 5 mg PO BID PRN Anxiety 05/26/23 05/29/23 tramadol 50 mg tablet 50 mg PO HS PRN Pain 05/26/23 05/29/23 trazodone 100 mg tablet 100 mg PO HS 05/26/23 05/29/23 furosemide 40 mg tablet 40 mg PO 3XWK 05/29/23 05/29/23 metoprolol succinate 100 mg 100 mg PO AMHS 05/29/23 05/29/23 tablet,extended release 24 hr Results & Data (ED) Vital Signs Vital Signs - 24 hr 05/29/23 19:40 05/29/23 19:57 05/29/23 19:57 Temperature 36.5 C Temperature Source Temporal Artery Scan Pulse Rate 135 H 127 H 108 H Pulse Rate from SpO2 Sensor 128 H Respiratory Rate 18 37 H Respiratory Effort / Characteristics Non-Labored Spontaneous Respiratory Depth Normal Blood Pressure 161/99 H 157/125 H Blood Pressure Mean 119 135 Pulse Oximetry 96 94 Oxygen Delivery Method Room Air Room Air Sepsis Recent Fever Within 48 Hours No Sepsis New/Unexplained Change in Mental Status No Sepsis Action Taken by Nursing No Action Required 05/29/23 20:24 05/29/23 20:30 05/29/23 20:50 Temperature Temperature Source Pulse Rate 142 H 115 H 118 H Pulse Rate from SpO2 Sensor 130 H Respiratory Rate 25 H 26 H Respiratory Effort / Characteristics Respiratory Depth Blood Pressure 186/133 H 167/133 H 132/99 Blood Pressure Mean 144 110 Pulse Oximetry 95 96 Oxygen Delivery Method Room Air Room Air Sepsis Recent Fever Within 48 Hours Sepsis New/Unexplained Change in Mental Status Sepsis Action Taken by Nursing 05/29/23 21:00 05/29/23 21:02 05/29/23 21:30 Temperature Temperature Source Pulse Rate 103 H 114 H 107 H Pulse Rate from SpO2 Sensor 106 H Respiratory Rate 22 28 H Respiratory Effort / Characteristics Respiratory Depth Blood Pressure 128/110 H 173/140 H Blood Pressure Mean 116 151 Pulse Oximetry 98 95 Oxygen Delivery Method Room Air Room Air Sepsis Recent Fever Within 48 Hours Sepsis New/Unexplained Change in Mental Status Sepsis Action Taken by Nursing 05/29/23 22:06 05/29/23 22:20 05/30/23 00:28 Temperature Temperature Source Pulse Rate 103 H 101 H 107 H Pulse Rate from SpO2 Sensor 106 H Respiratory Rate 25 H Respiratory Effort / Characteristics Respiratory Depth Blood Pressure 147/95 H Blood Pressure Mean 112 Pulse Oximetry 94 Oxygen Delivery Method Room Air Sepsis Recent Fever Within 48 Hours Sepsis New/Unexplained Change in Mental Status Sepsis Action Taken by Nursing Laboratory Data 05/29/23 19:50 05/29/23 19:50 Lab Results 05/29/23 Range/Units 19:50 WBC 8.43 (4.8-10.8) K/ul RBC 4.98 (4.20-5.40) M/uL Hgb 13.8 (12.0-16.0) g/dl Hct 41.6 (37.0-47.0) % MCV 83.5 (80.0-100.0) fL MCH 27.7 (25.0-34.0) pg MCHC 33.2 (32.0-36.0) g/dL RDW Std Deviation 48.9 H (36.4-46.3) fL RDW Coeff of Dash 16.4 H (11.5-14.5) % Plt Count 320 (130-400) K/uL MPV 9.5 (9.4-12.4) fL Immature Gran % (Auto) 1.2 % Neut % (Auto) 62.1 % Lymph % (Auto) 26.8 % Colbert % (Auto) 6.9 % Eos % (Auto) 2.3 % Baso % (Auto) 0.7 % Neut # (Auto) 5.24 (1.40-6.50) K/uL Lymph # (Auto) 2.26 (1.20-3.40) K/uL Colbert # (Auto) 0.58 (0.11-0.59) K/uL Eos # (Auto) 0.19 (0.00-0.50) K/uL Baso # (Auto) 0.06 (0.00-0.20) K/uL Immature Gran # (Auto) 0.10 (0.01-0.20) K/uL Sodium 139 (136-145) mmol/L Potassium 3.0 L (3.5-5.1) mmol/L Chloride 106 (98-107) mmol/L Carbon Dioxide 23 (21-32) mmol/L Anion Gap 10 (3-11) BUN 9 (6-23) mg/dl Creatinine 0.78 (0.6-1.2) mg/dl Est Cr Clr Drug Dosing 48.4 ml/min Est GFR ( Amer) 83.2 ml/min Est GFR (Non-Af Amer) 71.8 ml/min BUN/Creatinine Ratio 11.5 (10-20) Glucose 202 H (70-99(Fasting)) mg/dl Calcium 8.9 (8.6-10.3) mg/dl Magnesium 1.9 (1.7-2.4) mg/dl Total Bilirubin 1.1 H (0.2-1.0) mg/dl AST 15 (13-39) U/L ALT 16 (7-52) U/L Alkaline Phosphatase 69 (34-104) U/L Troponin I High Sens 11.6 (0-14) pg/ml Total Protein 6.9 (6.0-8.3) gm/dl Albumin 3.7 (3.4-5.0) gm/dl Globulin 3.2 (2.5-4.0) gm/dl Albumin/Globulin Ratio 1.2 (0.9-2) Lipase 20 (11-82) U/L Administered Medications Discontinued Medications Aspirin (Aspirin Chew 324 Mg) 324 mg PO NOW STA Stop: 05/29/23 20:16 Last Admin: 05/29/23 20:24 Dose: 324 mg Documented By: TIFF Furosemide (Furosemide 40 Mg/4 Ml Vial) 40 mg IV ONE ONE Stop: 05/29/23 22:01 Last Admin: 05/29/23 22:22 Dose: 40 mg Documented By: TIFF Sodium Chloride (Nss) 500 mls @ 999 mls/hr IV .Q31M STA Stop: 05/29/23 20:45 Last Infusion: 05/29/23 22:06 Dose: Infused Documented By: Admin: 05/29/23 20:24 Dose: 999 mls/hr Documented By: TIFF Magnesium Sulfate/Dextrose (Magnesium Sulfate / D5w) 1 gm in 100 mls @ 50 mls/hr IV ONE ONE Stop: 05/29/23 23:59 Last Admin: 05/29/23 22:22 Dose: 50 mls/hr Documented By: TIFF Ipratropium [place] (Ipratropium [place] Neb Soln 0.02% 2.5 Ml Vial) 0.5 mg INH NOW STA Stop: 05/29/23 23:15 Last Admin: 05/29/23 23:36 Dose: 0.5 mg Documented By: SABA Levalbuterol HCl (Levalbuterol 1.25 Mg/3 Ml Neb) 1.25 mg NEB NOW STA Stop: 05/29/23 23:15 Last Admin: 12/05/23 23:35 Dose: 1.25 mg Documented By: SABA Metoprolol Succinate (Metoprolol Succ 50mg Ext Rel Tab) 100 mg PO NOW STA Stop: 05/29/23 21:51 Last Admin: 05/29/23 22:21 Dose: 100 mg Documented By: TIFF Metoprolol Tartrate (Metoprolol Tartrate 1 Mg/Ml Vial) 5 mg IV Q5M PRN PRN Reason: Tachycardia Stop: 06/28/23 20:14 Last Admin: 05/29/23 20:52 Dose: 5 mg Documented By: Admin: 05/29/23 20:24 Dose: 5 mg Documented By: TIFF Ondansetron HCl (Ondansetron Inj 2 Mg/Ml 2 Ml Vial) 4 mg IV NOW STA Stop: 05/29/23 20:58 Last Admin: 05/29/23 21:05 Dose: 4 mg Documented By: TIFF Potassium Chloride (Potassium Chloride Crtab 20 Meq Tabcr) 40 meq PO NOW STA Stop: 05/29/23 21:50 Last Admin: 05/29/23 22:21 Dose: 40 meq Documented By: TIFF Potassium Chloride (Potassium Chloride Crtab 20 Meq Tabcr) 40 meq PO NOW STA Stop: 05/29/23 23:32 Last Admin: 05/29/23 23:37 Dose: 40 meq Documented By: SABA Imaging Data Radiologist's Impression: Chest X-Ray 05/29/23 19:42 SINGLE VIEW CHEST CLINICAL HISTORY: Atypical chest pain. FINDINGS: An AP, portable, upright chest radiograph is compared to study dated 05/26/2023. The heart is enlarged noting atherosclerotic calcification of the thoracic aorta. There is pulmonary vascular congestion. Chronic interstitial thickening is similar to previous. Airspace opacities are present in both lung bases. Trace pleural effusions are suspected. No pneumothorax is seen. The skeletal structures are osteopenic. There is chronic deformity of the right proximal humerus with surgical anchors in the right humeral head. IMPRESSION: 1. Cardiomegaly with pulmonary vascular congestion. 2. Suspect trace pleural effusions. 3. Dependent airspace opacities could represent scarring/atelectasis versus an infectious/inflammatory pneumonitis. Clinical correlation will be required and radiographic follow-up to resolution is recommended ACT 112: Negative or not required by law. Electronically signed by: Dario Stallings M.D. 05/29/2023 8:04 PM Discharge Plan Visit Data Chief Complaint: Chest Pain Stated Complaint: CHEST PAIN ED Provider: Elgin Connell Discharge Problem: Atrial fibrillation with rapid ventricular response Forms Stand Alone Forms: My [facility] Prescriptions Prescriptions: No Action gabapentin 800 mg Tablet 800 mg PO QAM cyanocobalamin (vitamin B-12) 1,000 mcg Tablet 1,000 mcg PO QAM lisinopril 10 mg Tablet 10 mg PO QAM metformin 500 mg tablet 500 mg PO BID atorvastatin 80 mg Tablet 80 mg PO PM sertraline 25 mg tablet 25 mg PO QAM Jardiance 25 mg tablet 25 mg PO QAM trazodone 100 mg tablet 100 mg PO HS aspirin 81 mg Tablet 81 mg PO QAM buspirone 5 mg tablet 5 mg PO BID PRN (Reason: Anxiety) tramadol 50 mg tablet 50 mg PO HS PRN (Reason: Pain) folic acid 1 mg tablet 1 mg PO QAM metoprolol succinate 100 mg tablet extended release 24 hr 100 mg PO AMHS furosemide 40 mg tablet 40 mg PO 3XWK Rx Instructions: Take on Sunday, Sunday and Sunday Referrals Referrals: Amparo Rich DO [Primary Care Provider] -
[2023-05-29] MEDS: METOPROLOL TARTRATE 1 MG/ML VIAL IV PRN ×2 (20:24→20:52)
[2023-05-29 20:28] LABS: Albumin Globulin Ratio 1.2 (0.9-2); Albumin Level 3.7 gm/dl (3.4-5.0); BUN Creatinine Ratio 11.5 (10-20); Bilirubin,Total 1.1 mg/dl (0.2-1.0); Calcium 8.9 mg/dl (8.6-10.3); Creatinine Clr Calc Pharmacy 48.4 ml/min; Est GFR (African American) 83.2 ml/min; Est GFR (Non-African American) 71.8 ml/min; Globulin 3.2 gm/dl (2.5-4.0); Total Protein 6.9 gm/dl (6.0-8.3)
[2023-05-29 20:34] LABS: Troponin I High Sensitivity 11.6 pg/ml (0-14)
[2023-05-29] MEDS ORDERED: ONDANSETRON INJ 2 MG/ML 2 ML VIAL IV STA (20:57)
[2023-05-29] MEDS ORDERED: POTASSIUM CHLORIDE CRTAB 20 MEQ TABCR PO STA ×2 (21:49→23:31)
[2023-05-29] MEDS ORDERED: METOPROLOL SUCC 50MG EXT REL TAB PO STA (21:50)
[2023-05-29] MEDS ORDERED: FUROSEMIDE 40 MG/4 ML VIAL IV ONE (22:00)
[2023-05-29] MEDS ORDERED: MAGNESIUM SULFATE / D5W 1 GM/100 ML BAG IV ONE (22:00)
[2023-05-29 22:11] LABS: Magnesium 1.9 mg/dl (1.7-2.4)
[2023-05-29] MEDS ORDERED: XOPENEX/ATROVENT 1.25mg/0.5MG NEB COMBO NEB STA (23:14)
[2023-05-29] MEDS ORDERED: LEVALBUTEROL 1.25 MG/3 ML NEB NEB STA (23:14)
[2023-05-29] MEDS ORDERED: IPRATROPIUM BROMIDE NEB SOLN 0.02% 2.5 ML VIAL INH STA (23:14)
[2023-05-30] MEDS ORDERED: dilTIAZem HCl 5 MG/ML 5 ML VIAL IV STA ×2 (01:07→04:00)
--- NOTE | 2023-05-30 01:11 | History & Physical Report ---
Date of Service May 30, 2023 Assessment & Plan (1) Decompensated heart failure: Plan: History diastolic dysfunction, pulmonary hypertension Secondary to uncontrolled HTN, A-fib, past history of cardioversion, patient not on anticoagulation secondary to recurrent GI bleed history History medical noncompliance CAD status post stent valvular heart disease (moderate to severe MR, mild AR/TR) hyperlipidemia, on statin Rx COPD, pulmonary status at baseline DM 2 on oral medications, suboptimal control as of recent hemoglobin A1c of 8 last March 2023 ongoing tobacco abuse. PCU Diuretic Rx Strict I/Os, daily weights, CHF education, fluid restriction Continue home beta-alureano dose Cardiology consult Re: CHF, uncontrolled A-fib Basal bolus insulin. ISS BG goal 1 10-1 40, carb count coverage Nicotine patch as needed DVT prophylaxis. SCDs Re: recurrent GI bleed Full code Text document was generated using [employer] voice recognition software. It may contain grammatical or spelling errors. Kindly contact undersigned for clarification of any documentation item in question. History of Present Illness Chief Complaint: Worsening shortness of breath Primary Care Provider: Amparo Rich DO History obtained from patient and records. Medical history significant for chronic diastolic heart failure (EF 50-55%, TTE 2022), CAD status post stent, PAF status post cardioversion off anticoagulation secondary to recurrent GI bleed, valvular heart disease (moderate to severe MR, mild AR/TR), pulmonary hypertension, HTN, hyperlipidemia, COPD, DM 2 on oral medications, history of PUD as per records/diverticulosis, colonic polyps, ongoing tobacco abuse. Last confinement 4 days ago for recurrent A-fib with RVR with CHF. Patient signed out AGAINST MEDICAL ADVICE due to family issue. Worsening symptoms at home. Chest tightness without radiation. No unusual cough symptoms. Weight gain of about 5 pounds despite compliance with medication regimen. Usual episode of hematochezia without abdominal pain complaints. Denies unusual headache complaints. Patient returned to ER for evaluation. SBP 180s upon arrival at the ER. Noted to be in rapid A-fib heart rate 130s. 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 Allergies Allergy/AdvReac Type Severity Reaction Status Date / Time codeine Allergy Mild SICK Verified 05/26/23 10:18 propoxyphene Allergy Mild SICK Verified 05/26/23 10:18 BEE STING Allergy Severe Anaphylaxis Uncoded 05/26/23 10:18 Home Medications Medication Instructions Recorded Confirmed Type cyanocobalamin (vitamin B-12) 1,000 mcg PO QAM 10/07/20 05/29/23 History 1,000 mcg tablet gabapentin 800 mg tablet 800 mg PO QAM 10/07/20 05/29/23 History lisinopril 10 mg tablet 10 mg PO QAM 10/07/20 05/29/23 History atorvastatin 80 mg tablet 80 mg PO PM 01/21/21 05/29/23 History empagliflozin 25 mg tablet 25 mg PO QAM 01/21/21 05/29/23 History (Jardiance) metformin 500 mg tablet 500 mg PO BID 01/21/21 05/29/23 History sertraline 25 mg tablet 25 mg PO QAM 01/21/21 05/29/23 History folic acid 1 mg tablet 1 mg PO QAM 03/06/23 05/29/23 History aspirin 81 mg tablet 81 mg PO QAM 05/26/23 05/29/23 History buspirone 5 mg tablet 5 mg PO BID PRN Anxiety 05/26/23 05/29/23 History tramadol 50 mg tablet 50 mg PO HS PRN Pain 05/26/23 05/29/23 History trazodone 100 mg tablet 100 mg PO HS 05/26/23 05/29/23 History furosemide 40 mg tablet 40 mg PO 3XWK 05/29/23 05/29/23 History metoprolol succinate 100 mg 100 mg PO AMHS 05/29/23 05/29/23 History tablet,extended release 24 hr Past Med/Surg History Medical History Major depressive disorder Lumbosacral spondylosis CKD (chronic kidney disease), stage III Diabetic polyneuropathy associated with type 2 diabetes mellitus Centrilobular emphysema Wheezing Failure of outpatient treatment Flu-like symptoms Atrial flutter with rapid ventricular response CHF (congestive heart failure) PUD (peptic ulcer disease) Paroxysmal atrial fibrillation Smoker Obesity Nocturnal hypoxemia Per records CAD (coronary artery disease) S/p PCI with BMS to D1 in 2011 COPD (chronic obstructive pulmonary disease) Per records Diabetes mellitus, type 2 Osteoarthritis History of kidney stones GERD (gastroesophageal reflux disease) Hyperlipidemia Hypertension Surgical History S/P angioplasty with stent History of cystoscopy History of colonoscopy History of hysterectomy History of repair of rotator cuff RT History of tooth extraction History of tonsillectomy and adenoidectomy History of cataract surgery RT/LEFT History of heart artery stent 1 STENT PLACED to D1 in 2011 Family History Son Family history of diabetes mellitus Other No family history of adverse response to anesthesia Social History Smoking Status: Former smoker Tobacco Type: Cigarettes Cigarettes Per Day: 20 PER DAY; Second Hand Exposure: No; Do You Dip or Chew Tobacco: No; Hx Alcohol Use: No Hx Substance Use: No Preferred Language: Lebanese Communication Ability: Effective Grinder Needle Tip Required: No Beliefs That Will Affect Care: None Current Living Situation: Alone Feels Safe at Home: Yes Assistive Devices: Cane and Walker Review of Systems Review of Systems: As per HPI, all other systems reviewed and negative Physical Exam Physical Exam: GENERAL: obese, slightly anxious, minimal respiratory distress SKIN: Normal color, warm HEENT: Doland palpebral conjunctivae, no ptosis, dry buccal mucosa, nasal cannula in place NECK : Supple, short neck, no tenderness CHEST : Decreased breath sounds, no tenderness HEART : Tachycardic, irregular, systolic murmur ABDOMEN: Some distention, nontender EXTREMITIES : Minimal LE swelling, no LE tenderness, no other conspicuous deformities noted NEUROLOGIC : Coherent, no facial asymmetry, no other gross focality Results & Data Results & Data Vital Signs (Past 12 Hours) Vital Signs Temp Pulse Resp BP Pulse Ox O2 Del Method 05/30/23 00:30 114 H 18 133/106 H 90 Room Air 05/30/23 00:28 107 H 05/30/23 00:00 95 H 20 146/102 H 97 Room Air 05/29/23 22:20 101 H 25 H 147/95 H 94 Room Air 05/29/23 22:06 103 H 05/29/23 21:30 107 H 28 H 173/140 H 95 Room Air 05/29/23 21:02 114 H 05/29/23 21:00 103 H 22 128/110 H 98 Room Air 05/29/23 20:50 118 H 26 H 132/99 96 Room Air 05/29/23 20:30 115 H 25 H 167/133 H 95 Room Air 05/29/23 20:24 142 H 186/133 H 05/29/23 19:57 108 H 05/29/23 19:57 127 H 37 H 157/125 H 94 Room Air 05/29/23 19:40 36.5 C 135 H 18 161/99 H 96 Room Air Laboratory Results Laboratory Results WBC 8.43 K/ul (4.8-10.8) 05/29/23 19:50 RBC 4.98 M/uL (4.20-5.40) 05/29/23 19:50 Hgb 13.8 g/dl (12.0-16.0) 05/29/23 19:50 Hct 41.6 % (37.0-47.0) 05/29/23 19:50 MCV 83.5 fL (80.0-100.0) 05/29/23 19:50 MCH 27.7 pg (25.0-34.0) 05/29/23 19:50 MCHC 33.2 g/dL (32.0-36.0) 05/29/23 19:50 RDW Std Deviation 48.9 fL (36.4-46.3) H 05/29/23 19:50 RDW Coeff of Dash 16.4 % (11.5-14.5) H 05/29/23 19:50 Plt Count 320 K/uL (130-400) 05/29/23 19:50 MPV 9.5 fL (9.4-12.4) 05/29/23 19:50 Immature Gran % (Auto) 1.2 % 05/29/23 19:50 Neut % (Auto) 62.1 % 05/29/23 19:50 Lymph % (Auto) 26.8 % 05/29/23 19:50 Dickey % (Auto) 6.9 % 05/29/23 19:50 Eos % (Auto) 2.3 % 05/29/23 19:50 Baso % (Auto) 0.7 % 05/29/23 19:50 Neut # (Auto) 5.24 K/uL (1.40-6.50) 05/29/23 19:50 Lymph # (Auto) 2.26 K/uL (1.20-3.40) 05/29/23 19:50 Dickey # (Auto) 0.58 K/uL (0.11-0.59) 05/29/23 19:50 Eos # (Auto) 0.19 K/uL (0.00-0.50) 05/29/23 19:50 Baso # (Auto) 0.06 K/uL (0.00-0.20) 05/29/23 19:50 Immature Gran # (Auto) 0.10 K/uL (0.01-0.20) 05/29/23 19:50 Sodium 139 mmol/L (136-145) 05/29/23 19:50 Potassium 3.0 mmol/L (3.5-5.1) L 05/29/23 19:50 Chloride 106 mmol/L (98-107) 05/29/23 19:50 Carbon Dioxide 23 mmol/L (21-32) 05/29/23 19:50 Anion Gap 10 (3-11) 05/29/23 19:50 BUN 9 mg/dl (6-23) 05/29/23 19:50 Creatinine 0.78 mg/dl (0.6-1.2) 05/29/23 19:50 Est Cr Clr Drug Dosing 48.4 ml/min 05/29/23 19:50 Est GFR ( Amer) 83.2 ml/min 05/29/23 19:50 Est GFR (Non-Af Amer) 71.8 ml/min 05/29/23 19:50 BUN/Creatinine Ratio 11.5 (10-20) 05/29/23 19:50 Glucose 202 mg/dl (70-99(Fasting)) H 05/29/23 19:50 Calcium 8.9 mg/dl (8.6-10.3) 05/29/23 19:50 Magnesium 1.9 mg/dl (1.7-2.4) 05/29/23 19:50 Total Bilirubin 1.1 mg/dl (0.2-1.0) H 05/29/23 19:50 AST 15 U/L (13-39) 05/29/23 19:50 ALT 16 U/L (7-52) 05/29/23 19:50 Alkaline Phosphatase 69 U/L (34-104) 05/29/23 19:50 Troponin I High Sens 11.6 pg/ml (0-14) 05/29/23 19:50 Total Protein 6.9 gm/dl (6.0-8.3) 05/29/23 19:50 Albumin 3.7 gm/dl (3.4-5.0) 05/29/23 19:50 Globulin 3.2 gm/dl (2.5-4.0) 05/29/23 19:50 Albumin/Globulin Ratio 1.2 (0.9-2) 05/29/23 19:50 Lipase 20 U/L (11-82) 05/29/23 19:50 Impressions Chest X-Ray 05/29/23 19:42 SINGLE VIEW CHEST CLINICAL HISTORY: Atypical chest pain. FINDINGS: An AP, portable, upright chest radiograph is compared to study dated 05/26/2023. The heart is enlarged noting atherosclerotic calcification of the thoracic aorta. There is pulmonary vascular congestion. Chronic interstitial thickening is similar to previous. Airspace opacities are present in both lung bases. Trace pleural effusions are suspected. No pneumothorax is seen. The skeletal structures are osteopenic. There is chronic deformity of the right proximal humerus with surgical anchors in the right humeral head. IMPRESSION: 1. Cardiomegaly with pulmonary vascular congestion. 2. Suspect trace pleural effusions. 3. Dependent airspace opacities could represent scarring/atelectasis versus an infectious/inflammatory pneumonitis. Clinical correlation will be required and radiographic follow-up to resolution is recommended ACT 112: Negative or not required by law. Electronically signed by: Dario Stallings M.D. 05/29/2023 8:04 PM Diagnostic Findings EKG as per my interpretation :Rate 140, A-fib, normal axis, nonspecific T wave abnormalities
[2023-05-30] MEDS ORDERED: traMADol HCL 50 MG TABLET PO PRN (01:16)
[2023-05-30] MEDS ORDERED: PROMETHAZINE HCL 12.5 MG in SODIUM CHLORIDE 0.9% 50 ML IV PRN (01:16)
[2023-05-30] MEDS ORDERED: traZODone HCL 100 MG TAB PO STA (01:16)
[2023-05-30] MEDS ORDERED: GLUCOSE 40% GEL 15 GM TUBE PO PRN (02:55)
[2023-05-30] MEDS ORDERED: busPIRone 5 MG TAB PO PRN (02:55)
[2023-05-30] MEDS ORDERED: GLUCOSE 10 TAB/TUBE PO PRN (02:55)
[2023-05-30] MEDS ORDERED: ACETAMINOPHEN 325 MG TAB PO PRN (02:55)
[2023-05-30] MEDS ORDERED: GLUCAGON FOR INJ 1 MG VIAL SQ PRN (02:55)
[2023-05-30] MEDS ORDERED: CARBOHYDRATES FOR HYPOGLYCEMIA PO PRN (02:55)
[2023-05-30] MEDS ORDERED: DEXTROSE 50% 50 ML SYRINGE IV PRN (02:55)
[2023-05-30] MEDS: INSULIN ASPART PER UNIT CHARGE SC SCH ×5 (04:49→21:05)
[2023-05-30] MEDS ORDERED: AMPICILLIN/SULBACTAM SOD 3,000 MG in SODIUM CHLOR 0.9% MINI-B 100 ML IV SCH (05:00)
[2023-05-30 07:30] LABS: Basophils # (auto) 0.04 K/uL (0.00-0.20); Basophils % (auto) 0.4 %; Eosinophils # (auto) 0.01 K/uL (0.00-0.50); Eosinophils % (auto) 0.1 %; Hematocrit (blood only) 41.8 % (37.0-47.0); Hemoglobin 14.1 g/dl (12.0-16.0); Immature Granulocytes # (auto) 0.05 K/uL (0.01-0.20); Immature Granulocytes % (auto) 0.5 %; Lymphocytes # (auto) 0.76 K/uL (1.20-3.40); Lymphocytes % (auto) 7.4 %; Mean Corpuscular Hemoglobin 27.8 pg (25.0-34.0); Mean Corpuscular Hgb Conc 33.7 g/dL (32.0-36.0); Mean Corpuscular Volume 82.4 fL (80.0-100.0); Mean Platelet Volume 9.9 fL (9.4-12.4); Monocytes % (auto) 5.8 %; Neutrophils # (auto) 8.88 K/uL (1.40-6.50); Neutrophils % (auto) 85.8 %; Platelet Count 304 K/uL (130-400); RDW Coefficient of Variation 16.7 % (11.5-14.5); Red Blood Count 5.07 M/uL (4.20-5.40); White Blood Count 10.34 K/ul (4.8-10.8)
[2023-05-30 07:54] LABS: BUN Creatinine Ratio 13.3 (10-20); Calcium 9.1 mg/dl (8.6-10.3); Creatinine Clr Calc Pharmacy 45.5 ml/min; Est GFR (African American) 77.2 ml/min; Est GFR (Non-African American) 66.6 ml/min; Potassium 4.1 mmol/L (3.5-5.1)
[2023-05-30] MEDS: FUROSEMIDE 40 MG/4 ML VIAL IV SCH ×2 (08:58→18:17)
[2023-05-30] MEDS: EMPAGLIFLOZIN 25 MG TAB PO SCH (08:58)
[2023-05-30] MEDS: FOLIC ACID 1 MG TAB PO SCH (08:58)
[2023-05-30] MEDS: GABAPENTIN 800 MG TAB PO SCH (08:59)
[2023-05-30] MEDS: lisinopril 10 MG TAB PO SCH (08:59)
[2023-05-30] MEDS ORDERED: ASPIRIN 81 MG ECTAB PO SCH (09:00)
[2023-05-30] MEDS: METOPROLOL SUCC 50MG EXT REL TAB PO SCH ×2 (09:03→21:01)
[2023-05-30] MEDS: POTASSIUM CHLORIDE CRTAB 20 MEQ TABCR PO SCH ×2 (09:03→21:01)
[2023-05-30] MEDS: SERTRALINE HCL 50 MG TABLET PO SCH (09:04)
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
[2023-05-30] MEDS: LANTUS PER UNIT CHARGE SQ SCH (10:30)
[2023-05-30] MEDS: SPIRONOLACTONE 25 MG TAB PO SCH (11:36)
[2023-05-30] MEDS: DOXYCYCLINE HYCLATE 100 MG CAP PO SCH ×2 (12:35→21:01)
--- NOTE | 2023-05-30 15:31 | Electrocardiogram Report ---
Test Reason : Blood Pressure : / mmHG Vent. Rate : 140 BPM Atrial Rate : 000 BPM P-R Int : 000 ms QRS Dur : 072 ms QT Int : 254 ms P-R-T Axes : 000 055 030 degrees QTc Int : 387 ms Atrial fibrillation with rapid ventricular response Nonspecific T wave abnormality Abnormal ECG When compared with ECG of 26-MAY-2023 09:10, Nonspecific T wave abnormality now evident in Lateral leads Confirmed by Adam Dang ([id number]) on 05/30/2023 3:30:57 PM Referred By: REFERRED SELF Confirmed By:Adam Dang
--- NOTE | 2023-05-30 15:47 | Hospitalist Progress Note ---
Date of Service May 30, 2023 Assessment & Plan (1) Decompensated heart failure: Plan: Acute decompensated diastolic heart failure H/O Diastolic dysfunction, pulmonary hypertension Likely due to uncontrolled hypertension, A-fib RVR ? Medication compliance --CXR:Cardiomegaly with pulmonary vascular congestion. Suspect trace pleural effusions. Dependent airspace opacities could represent scarring/atelectasis versus an infectious/inflammatory pneumonitis. Clinical correlation will be required and radiographic follow-up to resolution is recommended --Last ECHO 03/07/23: Rhythm is atrial fibrillation with RVR. EF 50-55%. Left atrium is moderately dilated. Mild aortic regurgitation. Moderate to severe mitral regurgitation. Mild to moderate tricuspid regurgitation. Estimated systolic pulmonary pressure is 38 mmHg. 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 DM II Hold PO meds HbA1c 7.8 Patient has been refusing insulin while hospitalized DVT Px: SCDs Re: recurrent GI bleed Code Status Full code Admission and Anticipated Discharge Date Admission Date: May 30, 2023 Subjective Patient is seen and examined at bedside States feeling better today Dyspnea improved Still has A-fib RVR on monitor Reports cough with yellowish expectoration Denies any chest pain, nausea, vomiting, abdominal pain, dizziness Review of Systems Review of Systems: All systems reviewed & are unremarkable except as noted in Subjective Physical Exam Physical Exam: Physical Exam: Vitals signs as noted above General Appearance:Moderately built and nourished, no apparent distress Head: normocephalic, Atraumatic Eyes: normal inspection, EOMI Neck: supple, Trachea midline Respiratory/Chest: Normal breath sounds, basal crackles, No accessory muscle use Cardiovascular: Irregularly irregular, tachycardia, +murmur, + tachycardia Abdomen/GI:Soft, Non tender, Bowel sounds present Extremities/Musculoskeletal:normal inspection, no edema, Left 4th finger swelling improved Neurologic/Psych:AAOX3, grossly no focal neurological deficits Skin: normal color, warm Results & Data Results & Data Vital Signs (Past 12 Hours) Vital Signs Pulse Resp BP Pulse Ox Pulse Ox O2 Del Method O2 Del Method 05/30/23 08:00 93 Room Air 05/30/23 07:39 101 H 05/30/23 05:30 91 H 20 05/30/23 05:01 115 H 19 150/106 H 90 Nasal Cannula 05/30/23 04:00 98 H 23 131/94 93 Nasal Cannula O2 Flow Rate 05/30/23 08:00 05/30/23 07:39 05/30/23 05:30 05/30/23 05:01 05/30/23 04:00 2 Laboratory Results Short CBC 05/29/23 05/30/23 Range/Units 19:50 06:57 WBC 8.43 10.34 (4.8-10.8) K/ul Hgb 13.8 14.1 (12.0-16.0) g/dl Hct 41.6 41.8 (37.0-47.0) % Plt Count 320 304 (130-400) K/uL [facility] 05/29/23 05/30/23 19:50 06:57 Sodium 139 138 Potassium 3.0 L 4.1 D Chloride 106 106 Carbon Dioxide 23 21 BUN 9 11 Creatinine 0.78 0.83 Glucose 202 H 250 H Calcium 8.9 9.1 Liver Function 05/29/23 Range/Units 19:50 Total Bilirubin 1.1 H (0.2-1.0) mg/dl AST 15 (13-39) U/L ALT 16 (7-52) U/L Alkaline Phosphatase 69 (34-104) U/L Albumin 3.7 (3.4-5.0) gm/dl
[2023-05-30] MEDS: traZODone HCL 100 MG TAB PO SCH (21:12)
[2023-05-30] MEDS: ATORVASTATIN 40 MG TAB PO SCH (21:12)
[2023-05-31 06:55] LABS: Calcium 9.2 mg/dl (8.6-10.3); Est GFR (African American) 58.1 ml/min; Est GFR (Non-African American) 50.1 ml/min; Magnesium 1.7 mg/dl (1.7-2.4); Potassium 3.7 mmol/L (3.5-5.1)
[2023-05-31] MEDS: EMPAGLIFLOZIN 25 MG TAB PO SCH (08:39)
[2023-05-31] MEDS: METOPROLOL SUCC 50MG EXT REL TAB PO SCH ×2 (08:39→21:13)
[2023-05-31] MEDS: FOLIC ACID 1 MG TAB PO SCH (08:39)
[2023-05-31] MEDS: SERTRALINE HCL 50 MG TABLET PO SCH (08:39)
[2023-05-31] MEDS: GABAPENTIN 800 MG TAB PO SCH (08:40)
[2023-05-31] MEDS: FUROSEMIDE 40 MG/4 ML VIAL IV SCH ×2 (08:40→17:47)
[2023-05-31] MEDS: DOXYCYCLINE HYCLATE 100 MG CAP PO SCH ×2 (08:40→20:14)
[2023-05-31] MEDS: POTASSIUM CHLORIDE CRTAB 20 MEQ TABCR PO SCH ×2 (08:40→20:15)
[2023-05-31] MEDS: lisinopril 10 MG TAB PO SCH (08:40)
[2023-05-31] MEDS: SPIRONOLACTONE 25 MG TAB PO SCH (08:40)
[2023-05-31] MEDS: INSULIN ASPART PER UNIT CHARGE SC SCH ×4 (08:48→21:13)
[2023-05-31] MEDS: LANTUS PER UNIT CHARGE SQ SCH (08:48)
--- NOTE | 2023-05-31 12:41 | Cardiology Progress Note ---
Date of Service May 31, 2023 Assessment & Plan (1) Acute diastolic (congestive) heart failure: (2) Permanent atrial fibrillation: (3) Hypokalemia: (4) Mitral regurgitation: (5) Hypertension: (6) ASCVD (arteriosclerotic cardiovascular disease): (7) Atrial fibrillation with RVR: Plan Presentation with acute decompensated diastolic heart failure, HFpEF. Patient significantly improved following 4 doses of 40 mg IV furosemide. Spironolactone added this admission for heart failure and hypertension. Patient chronically prescribed lisinopril and Jardiance. Volume status appears normovolemic. Recommend transitioning to oral furosemide in AM Persistent atrial fibrillation. Metoprolol succinate 100 mg twice per day prescribed/resumed this admission leading to adequate heart rate control the chronic atrial fibrillation. Risks of anticoagulation greater than the benefit. ASCVD. EKG without acute change. High-sensitivity troponin negative. Patient asymptomatic. Continue appropriate medical management with beta-laureano, aspirin, statin, GIOVANNY inhibition. Valvular heart disease. Recommend diuretic therapy to achieve and maintain normovolemia, aggressive blood pressure control, treatment of hypoxemia, ongoing medical management. Hypertension. See above. Follow. Dyslipidemia. Continue high intensity statin therapy, atorvastatin 80 mg/day. Ongoing tobacco abuse. Cessation mandated. Admission and Anticipated Discharge Date Admission Date: May 30, 2023 Supervising Physician Co-Signing Physician Notes Patient was seen and examined, chart, medications, telemetry reviewed. Hemodynamically and clinically improved. Heart rates improved on home dose metoprolol. Patient approaching euvolemic Discussed findings in detail with patient and urged medical compliance, tobacco cessation Stable from cardiac standpoint would change diuretic to furosemide 40 mg daily Addition of spironolactone as ordered 25 mg daily Subjective Patient seen and examined. Chart, medications, and telemetry reviewed. Son at bedside. Feels significantly better today, hoping for discharge this afternoon. Breathing has returned to baseline. No chest pain. No palpitations. Heart rates and blood pressures have significantly improved Urine output 4300 mL, balance -3450 mL. Telemetry: Atrial fibrillation with heart rates predominantly in the 80s to 100 bpm range. May 30, 2023 TTE interpretation summary: Compared to prior study, there is no significant change. Normal size left ventricle. Mild concentric LVH. No regional wall motion abnormalities. Borderline reduced LV systolic function. Ejection fraction 50 to 55%. Severely dilated left atrium. Mildly dilated right atrium. Moderate to severe mitral regurgitation. Moderate tricuspid regurgitation. RVSP 40 to 50 mmHg. Review of Systems Review of Systems: Systems is otherwise as stated above, negative, noncontributory Physical Exam Physical Exam: General: A&Ox3. NAD. HENT: Normocephalic. Atraumatic. Eyes: PER. Conjunctiva pink, sclera pale . Neck: No JVD. Heart: Irregularly irregular at 90 bpm. Soft apical systolic murmur. No diastolic murmur. No rub. Lungs: Diminished. Decreased. Clear. No wheeze, rales, or rhonchi. Abdomen: +BS. Soft. Nontender. No masses or organomegaly. Extremities: No clubbing, cyanosis, or edema. Limited neurological examination is without focal deficits. Pulses: radial=2/4, posterior tibial=1/4. Results & Data Vital Signs (Past 12 Hours) Vital Signs Temp Pulse Resp BP Pulse Ox Pulse Ox O2 Del Method 05/31/23 08:17 36.7 C 103 H 18 129/84 103 H 05/31/23 08:00 93 H 05/31/23 08:00 Room Air 05/31/23 08:00 95 05/31/23 03:36 36.3 C L 86 17 113/79 91 O2 Del Method 05/31/23 08:17 05/31/23 08:00 05/31/23 08:00 05/31/23 08:00 Room Air 05/31/23 03:36 Laboratory Results Comprehensive Metabolic Panel 05/31/23 Range/Units 06:04 Sodium 139 (136-145) mmol/L Potassium 3.7 (3.5-5.1) mmol/L Chloride 103 (98-107) mmol/L Carbon Dioxide 26 (21-32) mmol/L BUN 22 (6-23) mg/dl Creatinine 1.05 (0.6-1.2) mg/dl Glucose 129 H (70-99(Fasting)) mg/dl Calcium 9.2 (8.6-10.3) mg/dl Intake and Output 05/30/23 05/31/23 05/31/23 22:59 06:59 14:59 Intake Total 250 / 250 0 / 250 Output Total 1550 / 4300 600 / 4300 Balance -1300 / -4050 -600 / -4050 Intake: Oral 250 / 250 0 / 250 Output: Urine Amount (Catheter) 1550 / 4300 600 / 4300 Lang/Indwelling 1550 / 4300 600 / 4300 Other: Weight 61.1 kg Weight Measurement Method Standing Scale
--- NOTE | 2023-05-31 14:11 | Hospitalist Progress Note ---
Date of Service May 31, 2023 Assessment & Plan (1) Decompensated heart failure: Plan: Acute decompensated diastolic heart failure H/O Diastolic dysfunction, pulmonary hypertension Likely due to uncontrolled hypertension, A-fib RVR ? Medication compliance --CXR:Cardiomegaly with pulmonary vascular congestion. Suspect trace pleural effusions. Dependent airspace opacities could represent scarring/atelectasis versus an infectious/inflammatory pneumonitis. Clinical correlation will be required and radiographic follow-up to resolution is recommended --Last ECHO 03/07/23: Rhythm is atrial fibrillation with RVR. EF 50-55%. Left atrium is moderately dilated. Mild aortic regurgitation. Moderate to severe mitral regurgitation. Mild to moderate tricuspid regurgitation. Estimated systolic pulmonary pressure is 38 mmHg. Continue IV Lasix 40 mg twice daily Monitor I's and O's, daily weight, volume status Added spironolactone 25 mg daily Continue lisinopril, metoprolol and Jardiance Appreciate cardiology input Transition to p.o. 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 DM II Hold PO meds HbA1c 7.8 Patient has been refusing insulin while hospitalized DVT Px: SCDs Re: recurrent GI bleed Code Status Full code Admission and Anticipated Discharge Date Admission Date: May 30, 2023 Subjective Patient is seen and examined at bedside States feeling tired today Fully slept overnight Cough much improved today Negative for discharge Denies any chest pain, nausea, vomiting, abdominal pain, dizziness Review of Systems Review of Systems: All systems reviewed & are unremarkable except as noted in Subjective Physical Exam Physical Exam: Physical Exam: Vitals signs as noted above General Appearance:Moderately built and nourished, no apparent distress Head: normocephalic, Atraumatic Eyes: normal inspection, EOMI Neck: supple, Trachea midline Respiratory/Chest: Normal breath sounds, CTA, No accessory muscle use Cardiovascular: Irregularly irregular, tachycardia, +murmur, + tachycardia Abdomen/GI:Soft, Non tender, Bowel sounds present Extremities/Musculoskeletal:normal inspection, no edema, Left 4th finger swelling improved Neurologic/Psych:AAOX3, grossly no focal neurological deficits Skin: normal color, warm Results & Data Results & Data Vital Signs (Past 12 Hours) Vital Signs Temp Pulse Pulse Resp BP BP Pulse Ox 05/31/23 12:41 36.7 C 86 16 107/72 93 05/31/23 08:17 36.7 C 103 H 18 129/84 103 H 05/31/23 08:00 93 H 05/31/23 08:00 05/31/23 08:00 05/31/23 03:36 36.3 C L 86 17 113/79 91 Pulse Ox O2 Del Method O2 Del Method 05/31/23 12:41 Room Air 05/31/23 08:17 05/31/23 08:00 05/31/23 08:00 Room Air 05/31/23 08:00 95 Room Air 05/31/23 03:36 Laboratory Results BMP 05/31/23 06:04 Sodium 139 Potassium 3.7 Chloride 103 Carbon Dioxide 26 BUN 22 Creatinine 1.05 Glucose 129 H Calcium 9.2
[2023-05-31] MEDS: ATORVASTATIN 40 MG TAB PO SCH (20:14)
[2023-05-31] MEDS: traZODone HCL 100 MG TAB PO SCH ×2 (20:15→22:16)
[2023-06-01 06:11] LABS: Hematocrit (blood only) 46.4 % (37.0-47.0); Hemoglobin 15.4 g/dl (12.0-16.0); Mean Corpuscular Hemoglobin 27.9 pg (25.0-34.0); Mean Corpuscular Hgb Conc 33.2 g/dL (32.0-36.0); Mean Corpuscular Volume 84.1 fL (80.0-100.0); Mean Platelet Volume 9.9 fL (9.4-12.4); Platelet Count 334 K/uL (130-400); RDW Coefficient of Variation 17.1 % (11.5-14.5); RDW Standard Deviation 49.1 fL (36.4-46.3); Red Blood Count 5.52 M/uL (4.20-5.40); White Blood Count 9.02 K/ul (4.8-10.8)
[2023-06-01 06:32] LABS: BUN Creatinine Ratio 28.3 (10-20); Calcium 9.4 mg/dl (8.6-10.3); Creatinine Clr Calc Pharmacy 32.2 ml/min; Est GFR (African American) 53.2 ml/min; Est GFR (Non-African American) 45.9 ml/min; Magnesium 1.7 mg/dl (1.7-2.4); Potassium 4.1 mmol/L (3.5-5.1)
[2023-06-01] MEDS: POTASSIUM CHLORIDE CRTAB 20 MEQ TABCR PO SCH (08:24)
[2023-06-01] MEDS: lisinopril 10 MG TAB PO SCH (08:24)
[2023-06-01] MEDS: SPIRONOLACTONE 25 MG TAB PO SCH (08:24)
[2023-06-01] MEDS: GABAPENTIN 800 MG TAB PO SCH (08:25)
[2023-06-01] MEDS: SERTRALINE HCL 50 MG TABLET PO SCH (08:25)
[2023-06-01] MEDS: DOXYCYCLINE HYCLATE 100 MG CAP PO SCH (08:25)
[2023-06-01] MEDS: FOLIC ACID 1 MG TAB PO SCH (08:25)
[2023-06-01] MEDS: EMPAGLIFLOZIN 25 MG TAB PO SCH (08:25)
[2023-06-01] MEDS: METOPROLOL SUCC 50MG EXT REL TAB PO SCH (08:25)
[2023-06-01] MEDS: LANTUS PER UNIT CHARGE SQ SCH (08:31)
[2023-06-01] MEDS: INSULIN ASPART PER UNIT CHARGE SC SCH ×2 (08:31→12:10)
[2023-06-01] MEDS ORDERED: FUROSEMIDE 40 MG TAB PO SCH (09:00)
--- NOTE | 2023-06-01 12:02 | Cardiology Progress Note ---
Date of Service June 01, 2023 Assessment & Plan (1) Acute diastolic (congestive) heart failure: (2) Permanent atrial fibrillation: (3) Hypokalemia: (4) Mitral regurgitation: (5) Hypertension: (6) ASCVD (arteriosclerotic cardiovascular disease): (7) Atrial fibrillation with RVR: Plan Presentation with acute decompensated diastolic heart failure, HFpEF. Patient significantly improved following IV diuresis, resumption of previously prescribed medications. Spironolactone added this admission for heart failure and hypertension. Patient chronically prescribed lisinopril and Jardiance. Volume status appears normovolemic. Diuretic transition to oral this AM. Chronic atrial fibrillation. Intermittently with elevated ventricular rates. Increase metoprolol succinate to 150 mg in the morning and 100 mg in the evening. Decrease lisinopril dosing from 10 mg/day to 5 mg/day with titration of beta-laureano therapy. Risks of anticoagulation greater than the benefit. ASCVD. EKG without acute change. High-sensitivity troponin negative. Patient asymptomatic. Continue appropriate medical management with beta-laureano, aspirin, statin, GIOVANNY inhibition. Valvular heart disease. Recommend diuretic therapy to achieve and maintain normovolemia, aggressive blood pressure control, treatment of hypoxemia, ongoing medical management. Hypertension. See above. Dyslipidemia. Continue high intensity statin therapy, atorvastatin 80 mg/day. Ongoing tobacco abuse. Cessation mandated. Admission and Anticipated Discharge Date Admission Date: May 30, 2023 Supervising Physician Co-Signing Physician Notes Patient seen and examined, chart, medications, telemetry reviewed. Overall functional status has improved since hospitalization. No acute cardiac complaint Heart rate and blood pressure much improved following restart of home medication Will titrate metoprolol succinate slightly higher to keep heart rate control during activity given hypertension and degree of mitral insufficiency Medical compliance will remain an issue and recommend home health follow-up Subjective Patient seen and examined. Chart, medications, and telemetry reviewed. No chest pain. No palpitations. Breathing has returned to baseline. Lang catheter removed. No dysuria. Normal BM this AM. Anxious for discharge. Telemetry: Atrial fibrillation with intermittently elevated heart rates, up to 130 bpm, and occasional ectopy May 30, 2023 TTE interpretation summary: Compared to prior study, there is no significant change. Normal size left ventricle. Mild concentric LVH. No regional wall motion abnormalities. Borderline reduced LV systolic function. Ejection fraction 50 to 55%. Severely dilated left atrium. Mildly dilated right atrium. Moderate to severe mitral regurgitation. Moderate tricuspid regurgitation. RVSP 40 to 50 mmHg. Review of Systems Review of Systems: Systems is otherwise as stated above, negative, noncontributory Physical Exam Physical Exam: General: A&Ox3. NAD. HENT: Normocephalic. Atraumatic. Eyes: PER. Conjunctiva pink, sclera pale . Neck: No JVD. Heart: Irregularly irregular at 90 bpm. Soft apical systolic murmur. No diastolic murmur. No rub. Lungs: Diminished. Decreased. Clear. No wheeze, rales, or rhonchi. Abdomen: +BS. Soft. Nontender. No masses or organomegaly. Extremities: No clubbing, cyanosis, or edema. Limited neurological examination is without focal deficits. Pulses: radial=2/4, posterior tibial=1/4. Results & Data Vital Signs (Past 12 Hours) Vital Signs Temp Pulse Pulse Resp BP Pulse Ox O2 Del Method 06/01/23 11:34 36.3 C L 82 18 117/79 93 Room Air 06/01/23 08:04 36.9 C 103 H 18 128/74 91 Room Air 06/01/23 07:21 101 H 06/01/23 03:00 36.6 C 106 H 21 124/85 93 Room Air Laboratory Results CBC 06/01/23 Range/Units 05:43 WBC 9.02 (4.8-10.8) K/ul RBC 5.52 H (4.20-5.40) M/uL Hgb 15.4 (12.0-16.0) g/dl Hct 46.4 (37.0-47.0) % Plt Count 334 (130-400) K/uL Comprehensive Metabolic Panel 06/01/23 Range/Units 05:43 Sodium 136 (136-145) mmol/L Potassium 4.1 (3.5-5.1) mmol/L Chloride 99 (98-107) mmol/L Carbon Dioxide 27 (21-32) mmol/L BUN 32 H (6-23) mg/dl Creatinine 1.13 (0.6-1.2) mg/dl Glucose 155 H (70-99(Fasting)) mg/dl Calcium 9.4 (8.6-10.3) mg/dl Intake and Output 05/31/23 06/01/23 06/01/23 22:59 06:59 14:59 Intake Total 200 / 200 Output Total 1400 / 2400 0 / 2400 Balance -1200 / -2200 0 / -2200 Intake: Oral 200 / 200 Output: Urine 0 / 0 Urine Amount (Catheter) 1400 / 2400 Lang/Indwelling 1400 / 2400 Other: Weight 63.7 kg 62.1 kg Weight Measurement Method Estimated by Patient Patient Weight 06/02/23 06:59 Weight 62.1 kg (4) Mitral regurgitation Cardiac valve disease etiology: nonrheumatic Qualified Code(s): I34.0 - Non rheumatic mitral (valve) insufficiency (5) Hypertension Hypertension type: primary hypertension Qualified Code(s): I10 - Essential (primary) hypertension
--- NOTE | 2023-06-01 14:04 | Discharge Summary ---
Date of Service June 01, 2023 Admission HPI Per Admitting Provider History obtained from patient and records. Medical history significant for chronic diastolic heart failure (EF 50-55%, TTE 2022), CAD status post stent, PAF status post cardioversion off anticoagulation secondary to recurrent GI bleed, valvular heart disease (moderate to severe MR, mild AR/TR), pulmonary hypertension, HTN, hyperlipidemia, COPD, DM 2 on oral medications, history of PUD as per records/diverticulosis, colonic polyps, ongoing tobacco abuse. Last confinement 4 days ago for recurrent A-fib with RVR with CHF. Patient signed out AGAINST MEDICAL ADVICE due to family issue. Worsening symptoms at home. Chest tightness without radiation. No unusual cough symptoms. Weight gain of about 5 pounds despite compliance with medication regimen. Usual episode of hematochezia without abdominal pain complaints. Denies unusual headache complaints. Patient returned to ER for evaluation. SBP 180s upon arrival at the ER. Noted to be in rapid A-fib heart rate 130s. 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 Admission Exam Per Admitting Provider GENERAL: obese, slightly anxious, minimal respiratory distress SKIN: Normal color, warm HEENT: [place] palpebral conjunctivae, no ptosis, dry buccal mucosa, nasal cannula in place NECK : Supple, short neck, no tenderness CHEST : Decreased breath sounds, no tenderness HEART : Tachycardic, irregular, systolic murmur ABDOMEN: Some distention, nontender EXTREMITIES : Minimal LE swelling, no LE tenderness, no other conspicuous d eformities noted NEUROLOGIC : Coherent, no facial asymmetry, no other gross focality Principal Diagnosis Acute diastolic (congestive) heart failure Atrial fibrillation Discharge Exam General Appearance:Moderately built and nourished, no apparent distress Head: normocephalic, Atraumatic Eyes: normal inspection, EOMI Neck: supple Respiratory/Chest: Normal breath sounds, CTA, No accessory muscle use Cardiovascular: Irregularly irregular, tachycardia, +murmur Abdomen/GI:Soft, Non tender, Bowel sounds present Extremities/Musculoskeletal:normal inspection, no edema Neurologic/Psych:AAOX3, grossly no focal neurological deficits Skin: normal color, warm Discharge Data Allergies Allergy/AdvReac Type Severity Reaction Status Date / Time codeine Allergy Mild SICK Verified 05/26/23 10:18 propoxyphene Allergy Mild SICK Verified 05/26/23 10:18 BEE STING Allergy Severe Anaphylaxis Uncoded 05/26/23 10:18 Consultations 05/29/23 20:57 ED Decision to Admit Stat 05/30/23 02:55 Consult Cardiology Routine Hospital Course (1) Decompensated heart failure: Acute decompensated diastolic heart failure H/O Diastolic dysfunction, pulmonary hypertension Likely due to uncontrolled hypertension, A-fib RVR ? Medication compliance --CXR:Cardiomegaly with pulmonary vascular congestion. Suspect trace pleural effusions. Dependent airspace opacities could represent scarring/atelectasis versus an infectious/inflammatory pneumonitis. Clinical correlation will be required and radiographic follow-up to resolution is recommended --Last ECHO 03/07/23: Rhythm is atrial fibrillation with RVR. EF 50-55%. Left atrium is moderately dilated. Mild aortic regurgitation. Moderate to severe mitral regurgitation. Mild to moderate tricuspid regurgitation. Estimated systolic pulmonary pressure is 38 mmHg. Used IV Lasix 40 mg twice daily while inpt --> now transitioned to PO lasix 40 mg daily Monitor I's and O's, daily weight, volume status Added spironolactone 25 mg daily Continue lisinopril, metoprolol and Jardiance --> metoprolol increased to 150 mg AM and 100 mg PM, lisinopril decreased to 5 mg daily Appreciate cardiology input Needs follow-up with cardiology upon discharge Persistent atrial fibrillation Currently not on anticoagulation secondary to recurrent GI bleed H/O medication noncompliance Continue Toprol-XL as above Rate is controlled Acute bronchitis Chest x-ray as above Continued doxycycline while inpt CAD S/P stent Valvular heart disease (moderate to severe MR, mild AR/TR) Continue metoprolol, statin Hyperlipidemia Continue statin COPD Ongoing tobacco use disorder No signs of exacerbation Counseled to quit smoking DM II Hold PO meds HbA1c 7.8 Patient has been refusing insulin while hospitalized Total Time Total Time Spent Total Time Spent (In Minutes): 40 Discharge Plan Discharge Items Patient Disposition: Home - Home Health Services Reason For Visit: CHF Discharge Diagnosis: Acute diastolic (congestive) heart failure Atrial fibrillation Activity: Per Instructions section Non-emergency contact: Primary Care Provider Call non-emergency contact if: you have any medication questions and your symptoms worsen Follow-up/Referrals: Amparo Rich, [Primary Care Provider] - (Date & Time 06/04/2023 12:30 PM Provider Amparo Rich DO Department [facility] ) Diet: Carb Consistent or DM2 and Heart Healthy Fluids: 2000ml (8 cups) Addtl Attending Provider Instructions: Follow up with primary care doctor within 1 week. The appointment was scheduled for you for 06/04/2023. You will also need to follow up with cardiology - you will be contacted about the appointment with them. It is crucial that you take your medications as prescribed. Your metoprolol succinate dose was changed to 150 mg in the morning and 100 mg in the afternoon. Your lisinopril was decreased to 5 mag daily. Continue taking atorvastatin 80 mg daily. Take furosemide (lasix) 40 mg daily. Spironolactone is a new medication - take 25 mg daily. -- make sure to bring your medication bottles to all your appointments so it can be continuously clarified what medications you are on. It is also very important that you quit smoking. Pending Studies at Discharge: No Stand-Alone Forms: My [facility], Smoking Cessation Medications and DC Order Prescriptions: New lisinopril [Zestril] 5 mg Tablet 5 mg PO QAM Qty: 30 0RF metoprolol succinate 50 mg Tablet Extended Release 24 Hr 150 mg PO QAM 30 Days Qty: 90 0RF metoprolol succinate 50 mg Tablet Extended Release 24 Hr 100 mg PO QPM 10 Days Qty: 20 0RF spironolactone 25 mg Tablet 25 mg PO QAM Qty: 30 0RF furosemide 40 mg Tablet 40 mg PO QAM Qty: 20 0RF Continued gabapentin 800 mg Tablet 800 mg PO QAM cyanocobalamin (vitamin B-12) 1,000 mcg Tablet 1,000 mcg PO QAM metformin 500 mg tablet 500 mg PO BID atorvastatin 80 mg Tablet 80 mg PO PM sertraline 25 mg tablet 25 mg PO QAM Jardiance 25 mg tablet 25 mg PO QAM trazodone 100 mg tablet 100 mg PO HS aspirin 81 mg Tablet 81 mg PO QAM buspirone 5 mg tablet 5 mg PO BID PRN (Reason: Anxiety) tramadol 50 mg tablet 50 mg PO HS PRN (Reason: Pain) folic acid 1 mg tablet 1 mg PO QAM Discontinued lisinopril 10 mg Tablet 10 mg PO QAM metoprolol succinate 100 mg tablet extended release 24 hr 100 mg PO AMHS furosemide 40 mg tablet 40 mg PO [id number] Rx Instructions: Take on Sunday, Sunday and Sunday Discharge Orders: Discharge Order- CHF (Routine); Ordered 06/01/23 Ordered By: Kp Mckeon Admission Data Admit Date/Time: 05/30/23 01:13 Attending Provider: Kp Mckeon Admit Provider: Ash Peres Primary Care Provider: Amparo Rich Other Providers: Ash Peres; Lyn Watts; Aldo Lopze; Isidro Espinosa; Abhijeet Rich; Enoch Che; Mukul Martinez; Geeta Silvestre; Cecile Wade; Lyn Pond; Levy Walters; Chele Bhat; Ivonne Quinn; Crissy Redmond; nAdrea Zamora; Fawad Molina; Darryl Arredondo; [facility]
[2023-06-01] MEDS ORDERED: METOPROLOL SUCC 50MG EXT REL TAB PO SCH (21:00)
[2023-06-02] MEDS ORDERED: METOPROLOL SUCC 50MG EXT REL TAB PO SCH (09:00)
[2023-06-02] MEDS ORDERED: lisinopril 5 MG TAB PO SCH (09:00)
== END 2023-06-01 14:32 | disposition home health service (06) ==
LOC: ED 19:35 → EDINP 05-30 01:13 → INTOOBSV 05-30 01:13 → SUATTDRO 05-30 01:13 → 2S 05-30 18:43

== ENCOUNTER 2023-06-24 11:04 | Inpatient (IN) ==
--- OUTSIDE RECORDS SUMMARY | 2023-06-24 11:09 | External Medical Summary | Summary of Care ---
Author Name Unknown Organization [facility] Address [address] [facility] [place] [address] Phone [phone] Care Team Providers Care Manager Primary Name Role Phone Amparo Rich DO Primary Care Provider + [phone] Reason for Visit * Reason Onset Date Comments Advice 06/04/2023 Encounter Details Date Type Department Care Team (Late st Contact Info) Description 06/04/2023 Telephone [place] [address] [place] [address] Amparo Rich DO [address] [place] [address] Advice Allergies Active Allergy Reactions Criticality Noted Date Comments Bee Venom High 11/17/2011 Life threating reaction Morphine And Related 11/04/2002 vomitting with all types of pain meds documented as of this encounter (statuses as of 06/04/2023) Medications Medication Sig Dispensed Refills Start Date End Date Status EPIPEN 0.3 MG/0.3ML IJ DEVIIndications:Bee sting One injection into thigh as needed for severe allergic reaction 1 Device 5 10/08/2013 Active Blood Glucose Monitoring Suppl (ACCU-CHEK LEONORA PLUS) w/Device KITIndications:Type 2 diabetes, HbA1C goal < 8% ([facility]) Use 4 times a day to check blood sugar. 1 Kit 0 04/24/2019 Active Additional Information Patient not taking.Reported on 06/04/2023 Cyanocobalamin (B-12-SL) 1000 MCG SL TabletIndications:Lo w serum vitamin B12 Place 1,000 mcg under the tongue daily. 90 Tab 3 03/02/2020 Active oxygen IN GASIndications:Noctu rnal hypoxemia 2 L of oxygen while sleeping 1 Each 0 01/20/2021 Active Additional Information Patient not taking.Reported on 01/31/2023 oxygen IN GASIndications:Noctu rnal hypoxemia,COPD, group B, by GOLD 2017 classification ([facility]) Use 2 L/min(Oxygen) as directed continuous. concentrated [...] < 8% ([facility]) Test blood sugar 4 times a day 100 Strip 5 07/27/2021 Active Additional Information Patient not taking.Reported on 06/04/2023 BD Swab Single Use Regular Pad Use prior to testing 100 Each 5 07/27/2021 Active OneTouch Delica Lancets 33GIndications:Type 2 diabetes, HbA1C goal < 8% ([facility]) Use to test Blood 100 Each 5 07/27/2021 Active Additional Information Patient not taking.Reported on 06/04/2023 Pseudoephedrine HCl ER 120 MG Oral Tablet [...] < 8% ([facility]) Take 1 Tablet by mouth 2 times a day with morning and evening meals. 180 Tablet 3 08/09/2022 Active Diclofenac Sodium 1 % External Gel (Voltaren)Indication s:Tendonitis of ankle or foot Apply 2-4 grams to right foot four times daily as needed 150 g 3 10/27/2022 Active Nitroglycerin 0.4 MG Sublingual Tablet Sublingual (Nitrostat)Indicatio ns:Atherosclerosis of [place] coronary artery of [place] heart with angina pectoris (HCC) Place 1 Tablet under the tongue every 5 minutes as needed for Pain, Chest. up to 3 doses in 15 minutes 25 Tablet 11 10/27/2022 Active Empagliflozin 25 MG Oral Tablet (Jardiance)Indicatio ns:Type 2 diabetes, HbA1C goal < 8% ([facility]) Take 1 Tablet by mouth in the [...] the morning. 90 Tablet 1 02/14/2023 Active busPIRone HCl 5 MG Oral Tablet (Buspar)Indications: CHAVO (generalized anxiety disorder) take 1 tablet by mouth twice a day if needed for AGITATION 60 Tablet 0 05/21/2023 Active aspirin 20.25 MG OR TABS 1 Tablet. 0 05/26/2023 Active Lisinopril 5 MG Oral Tablet (Prinivil) Take 1 Tablet by mouth in the morning. In the morning.. 0 06/01/2023 Active Spironolactone 25 MG Oral Tablet (Aldactone) 1 Tablet. 0 06/01/2023 Active traZODone HCl 100 MG Oral Tablet (Desyrel) Take 1 Tablet by mouth at bedtime. 0 04/26/2023 Active Furosemide 40 MG Oral Tablet (Lasix)Indications:H eart failure, diastolic, due to HTN (HCC) Take 1 Tablet by mouth in the morning. 0 06/04/2023 Active Metoprolol Succinate ER 100 MG Oral Tablet Extended Release 24 Hour (Toprol XL)Indications:Parox ysmal atrial fibrillation (HCC) 1.5 tablet in the am by mouth and 1 tablet in the pm by mouth. 100 Tablet 0 06/04/2023 Active documented as of this encounter (statuses as of 06/04/2023) Active Problems Problem Noted Date Diagnosed Date Mitral valve insufficiency 03/16/2023 Atherosclerosis of [place] co ronary artery of [place] heart with angina pectoris 03/23/2022 Paroxysmal atrial [...] goal < 8% 09/16/2013 Coronary atherosclerosis of [place] coronary tuan ry 02/21/2012 S/P angioplasty with stent 02/21/2012 Overview: Diagnonal #1. 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 Resent fax to both fax numbers. 06/04/2023 * Telephone Encounter - Padilla Loredo OSA - 06/04/2023 3:31 PM EST [facility] calling stating they did not receive the fax yet. I did let them know there was a message put in that it was faxed around 3:15 today. They were requesting the fax to go to an alternative number if possible. Fax- Attn to: Juan Francisco Thanks! * Telephone Encounter - Angelique Vincent OSA - 06/04/2023 3:13 PM EST Faxed. 06/04/2023 * Telephone Encounter - Lynette Holm LPN - 06/04/2023 3:[address] Hilario castillo * Telephone Encounter - Shasta Gerard OSA - 06/04/2023 2:47 PM EST Caller requesting the following information to be faxed: Name/Company of caller: Juan Francisco from [facility] Information requested to be faxed: Received hospice referral, need additional information Fax number: [phone] Attention to Name/Company: N/A Any additional information?: Received referral requesting more information: face sheet, any recent office visit notes or H & P for patient documented in this encounter Plan of Treatment Upcoming Encounters Date Type Department Care Team (Late st Contact Info) Description 08/09/2023 12:10 PM EST Office Visit [facility] [address] [place] [facility] [place] [id number] Amparo Rich, [address] [place] [address] 10/24/2023 3:00 PM EDT Office Visit Neurology, [place] [address] [place] [address] Oc Owens, [address], [place] [id number] Scheduled Procedures Name Priority Associated Diagnoses Date/Ti me COLONOSCOPY FLEXIBLE PROXIMAL DIAGNOSTIC Recall Gastrointestinal hemorrhage with melena History of colon polyps ESOPHAGOGASTRODUODENOSCOPY ( EGD), FLEXIBLE, TRANSORAL, DIAGNOSTIC Recall Gastrointestinal hemorrhage with melena History of colon polyps Health Maintenance Due Date Last Done Comments Alpha-1 Antitrypsin 1958 CKD PHOS USE SMARTSET 29034 1958 Hepatitis B (1 of 3 - [...] Additional history exists CKD HGB USE SMARTSET 30432 04/12/202404/12, 08/02/2022, 11/18/2021, Additional history exists O2 ASSESSMENT COMPLETED IN PAST YEAR FOR COPD 04/12/2024 04/12/2023 DTaP,Tdap,and Td Vaccines (2 - Td or Tdap) 10/05/2024 10/05/2014, 03/02/2008 Pneumococcal Vaccine: 65+ Years Completed 12/01/2019, 03/13/2012 GARDASIL-HPV IMMUNIZATION SERIES Aged Out No longer eligible based on patient's age to complete this topic MENINGOCOCCAL (MENACTRA/MENVEO) Aged Out No longer eligible based on patient's age to complete this topic documented as of this encounter Medical Devices Not on filedocumented as of this encounter Care Teams Manager Primary Relationship Specialty Start Date End Date Amparo Rich DO [address] [place] [facility] [place] [address] PCP - General Family Medicine 02/21/22 documented as of this encounter
--- OUTSIDE RECORDS SUMMARY | 2023-06-24 11:09 | External Medical Summary | Summary of Care ---
Author Name Unknown Organization [facility] Address [address] [facility] [place] [address] Phone [phone] Care Team Providers Care Medical Scientist Name Role Phone Amparo Rich DO Primary Care Provider + [phone] Reason for Visit * Reason Onset Date Comments Advice 06/04/2023 Encounter Details Date Type Department Care Team (Late st Contact Info) Description 06/04/2023 Telephone [place] [address] [place] [address] Amparo Rich DO [address] [place] [address] Advice Allergies Active Allergy Reactions [...] ons:Type 2 diabetes, HbA1C goal < 8% ([facility]) Take 1 Tablet by mouth 2 times a day with morning and evening meals. 180 Tablet 3 08/09/2022 Active Diclofenac Sodium 1 % External Gel (Voltaren)Indication s:Tendonitis of ankle or foot Apply 2-4 grams to right foot four times daily as needed 150 g 3 10/27/2022 Active Nitroglycerin 0.4 MG Sublingual Tablet Sublingual (Nitrostat)Indicatio ns:Atherosclerosis of [place] coronary artery of [place] heart with angina pectoris (HCC) Place 1 Tablet under the tongue every 5 minutes as needed for Pain, Chest. up to 3 doses in 15 minutes 25 Tablet 11 10/27/2022 Active Empagliflozin 25 MG Oral Tablet (Jardiance)Indicatio ns:Type 2 diabetes, HbA1C goal < 8% ([facility]) Take 1 Tablet by mouth in the [...] Date Mitral valve insufficiency 03/16/2023 Atherosclerosis of [place] co ronary artery of [place] heart with angina pectoris 03/23/2022 Paroxysmal atrial [...] goal < 8% 09/16/2013 Coronary atherosclerosis of [place] coronary tuan ry 02/21/2012 S/P angioplasty with stent 02/21/2012 Overview: Diagnonal #1. [facility] 02/16/12 Mixed dyslipidemia 01/05/2012 Tobacco use [...] xochilt episode, moderate 03/23/2022 03/16/2023 Atherosclerosis of [place] co ronary artery of [place] heart with angina pectoris 09/07/20172018 Inflammation of [...] faxed: Name/Company of caller: Juan Francisco from [facility] hospice Information requested to be faxed: Received hospice referral, need additional information Fax number: [phone] Attention to Name/Company: N/A Any additional information?: Received referral requesting more information: face sheet, any recent office visit notes or H & P for patient documented in this encounter Plan of Treatment Upcoming Encounters Date Type Department Care Team (Late st Contact Info) Description 08/09/2023 12:10 PM EST Office Visit [facility] [address] [place] [address] Amparo Rich [address] [place] [address] 10/24/2023 3:00 PM EDT [facility] [address] [place] [address] Oc Owens, [address] [place] [address] Scheduled Procedures Name Priority Associated Diagnoses Date/Ti me COLONOSCOPY FLEXIBLE PROXIMAL DIAGNOSTIC Recall Gastrointestinal hemorrhage with melena History of colon polyps ESOPHAGOGASTRODUODENOSCOPY ( EGD), FLEXIBLE, TRANSORAL, DIAGNOSTIC Recall Gastrointestinal hemorrhage with melena History of colon polyps Health Maintenance Due Date Last Done Comments Alpha-1 Antitrypsin 1958 CKD PHOS USE SMARTSET 39173 1958 Hepatitis B (1 of 3 - [...] Additional history exists CKD HGB USE SMARTSET 52111 04/12/202404/12, 08/02/2022, 11/18/2021, Additional history exists O2 [...] filedocumented as of this encounter Care Teams Medical Scientist Relationship Specialty Start Date End Date Amparo Rich DO [address] [place] [address] PCP - General Family Medicine 02/21/22 documented as of this encounter
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
--- OUTSIDE RECORDS SUMMARY | 2023-06-24 11:09 | External Medical Summary | Summary of Care ---
Author Name Unknown Organization [facility] Address [address] [facility] [place] [address] Phone [phone] Care Team Providers Care Winder Contort Operator Name Role Phone Amparo Rich DO Primary Care Provider + [phone] Reason for Visit * Reason Comments Outpatient Testing Encounter Details Date Type Department Care Team (Late st Contact Info) Description 06/04/2023 2:30 PM EST Laboratory [facility], [place] [address] [place] [address] [place] [address], [place] [phone] Chronic kidney disease, stage 3a ([facility]) Allergies Active Allergy Reactions Criticality Noted Date [...] KITIndications:Type 2 diabetes, HbA1C goal < 8% ([facility]) Use 4 times a day to [...] hypoxemia,COPD, group B, by GOLD 2017 classification ([facility]) Use 2 L/min(Oxygen) as directed continuous. [...] pe 2 diabetes, HbA1C goal < 8% ([facility]) Test blood sugar 4 times a day 100 Strip 5 07/27/2021 Active Additional Information Patient not taking.Reported on 06/04/2023 BD Swab Single Use Regular Pad Use prior to testing 100 Each 5 07/27/2021 Active OneTouch Delica Lancets 33GIndications:Type 2 diabetes, HbA1C goal < 8% ([facility]) Use to test Blood 100 Each 5 [...] ons:Type 2 diabetes, HbA1C goal < 8% ([facility]) Take 1 Tablet by mouth 2 times a day with morning and evening meals. 180 Tablet 3 08/09/2022 Active Diclofenac Sodium 1 % External Gel (Voltaren)Indication s:Tendonitis of ankle or foot Apply 2-4 grams to right foot four times daily as needed 150 g 3 10/27/2022 Active Nitroglycerin 0.4 MG Sublingual Tablet Sublingual (Nitrostat)Indicatio ns:Atherosclerosis of [place] coronary artery of [place] heart with angina pectoris (HCC) Place 1 Tablet under the tongue every 5 minutes as needed for Pain, Chest. up to 3 doses in 15 minutes 25 Tablet 11 10/27/2022 Active Empagliflozin 25 MG Oral Tablet (Jardiance)Indicatio ns:Type 2 diabetes, HbA1C goal < 8% ([facility]) Take 1 Tablet by mouth in the [...] by mouth at bedtime. 0 04/26/2023 Active documented as of this encounter (statuses as of 06/04/2023) Active Problems Problem Noted Date Diagnosed Date Mitral valve insufficiency 03/16/2023 Atherosclerosis of [place] co ronary artery of [place] heart with angina pectoris 03/23/2022 Paroxysmal atrial [...] goal < 8% 09/16/2013 Coronary atherosclerosis of [place] coronary tuan ry 02/21/2012 S/P angioplasty with stent 02/21/2012 Overview: Diagnonal #1. [facility] 02/16/12 Mixed dyslipidemia 01/05/2012 Tobacco [...] xochilt episode, moderate 03/23/2022 03/16/2023 Atherosclerosis of [place] co ronary artery of [place] heart with angina pectoris 09/07/20172018 Inflammation of [...] Description 08/09/2023 12:10 PM EST [facility] [address] [facility] [phone] Amparo Rich [facility] [address] [facility] [address] 10/24/2023 3:00 PM EDT Office Visit Neurology, [place] [address] [place] [address] [facility], [address] [place] [address] Pending Results Name Type Priority Associated Diagnoses Date /Time BASIC METABOLIC PANEL Lab Routine Chronic kidney disease, stage 3a (HCC) 06/04/2023 2:16 PM EST Scheduled Procedures Name Priority Associated Diagnoses Date/Ti me COLONOSCOPY FLEXIBLE PROXIMAL DIAGNOSTIC Recall Gastrointestinal hemorrhage with melena History of colon polyps ESOPHAGOGASTRODUODENOSCOPY ( EGD), FLEXIBLE, TRANSORAL, DIAGNOSTIC Recall Gastrointestinal hemorrhage with melena History of colon polyps Health Maintenance Due Date Last Done Comments Alpha-1 Antitrypsin 1958 CKD PHOS USE SMARTSET 90258 1958 Hepatitis B (1 of 3 - [...] Additional history exists CKD HGB USE SMARTSET 47510 04/12/202404/12, 08/02/2022, 11/18/2021, Additional history exists O2 [...] Diagnosis Chronic kidney disease, stage 3a (HCC) documented in this encounter Care Teams Winder Contort Operator Relationship Specialty Start Date End Date Amparo Rich DO [address] [place] [address] PCP - General Family Medicine 02/21/22 documented as of this encounter
--- OUTSIDE RECORDS SUMMARY | 2023-06-24 11:09 | External Medical Summary | Summary of Care ---
Author Name Unknown Organization [facility] Address [address] [facility] [place] [address] Phone [phone] Care Team Providers Care Desktop Support Specialist Name Role Phone Amparo Rich DO Primary Care Provider + [phone] Reason for Visit * Reason Onset Date Comments Advice 06/04/2023 Encounter Details Date Type Department Care Team (Late st Contact Info) Description 06/04/2023 Telephone [place] [address] [place] [address] Amparo Rich DO [address] [place] [address] Advice Allergies Active Allergy Reactions [...] ons:Type 2 diabetes, HbA1C goal < 8% ([facility]) Take 1 Tablet by mouth 2 times a day with morning and evening meals. 180 Tablet 3 08/09/2022 Active Diclofenac Sodium 1 % External Gel (Voltaren)Indication s:Tendonitis of ankle or foot Apply 2-4 grams to right foot four times daily as needed 150 g 3 10/27/2022 Active Nitroglycerin 0.4 MG Sublingual Tablet Sublingual (Nitrostat)Indicatio ns:Atherosclerosis of [place] coronary artery of [place] heart with angina pectoris (HCC) Place 1 Tablet under the tongue every 5 minutes as needed for Pain, Chest. up to 3 doses in 15 minutes 25 Tablet 11 10/27/2022 Active Empagliflozin 25 MG Oral Tablet (Jardiance)Indicatio ns:Type 2 diabetes, HbA1C goal < 8% ([facility]) Take 1 Tablet by mouth [...] goal < 8% 09/16/2013 Coronary atherosclerosis of [place] coronary tuan ry 02/21/2012 S/P angioplasty with stent 02/21/2012 Overview: Diagnonal #1. [facility] 02/16/12 Mixed dyslipidemia 01/05/2012 Tobacco use disorder [...] xochilt episode, moderate 03/23/2022 03/16/2023 Atherosclerosis of [place] co ronary artery of [place] heart with angina pectoris 09/07/20172018 Inflammation of [...] encounter Miscellaneous Notes * Telephone Encounter - Padilla Loredo OSA [...] LPN - 06/04/2023 3:[address] Rich dismatthew * Telephone Encounter - Shasta Gerard OSA - 06/04/2023 2:47 PM EST Caller requesting the following information to be faxed: Name/Company of caller: Juan Francisco from [facility] Information requested to be faxed: Received hospice referral, need additional information Fax number: [phone] Attention to Name/Company: N/A Any additional information?: Received referral requesting more information: face sheet, any recent office visit notes or H & P for patient documented in this encounter Plan of Treatment Upcoming Encounters Date Type Department Care Team (Late st Contact Info) Description 08/09/2023 12:10 PM EST Office Visit [address] [place] [address] Amparo Rich, [address] [place] [address] 10/24/2023 3:00 PM EDT Office Visit Neurology, [place] [address] [place] [phone] [facility], [address] [place] [address] Scheduled Procedures Name Priority Associated Diagnoses Date/Ti me COLONOSCOPY FLEXIBLE PROXIMAL DIAGNOSTIC Recall Gastrointestinal hemorrhage with melena History of colon polyps ESOPHAGOGASTRODUODENOSCOPY ( EGD), FLEXIBLE, TRANSORAL, DIAGNOSTIC Recall Gastrointestinal hemorrhage with melena History of colon polyps Health Maintenance Due Date Last Done Comments Alpha-1 Antitrypsin 1958 CKD PHOS USE SMARTSET 73164 1958 Hepatitis B (1 of 3 - [...] Additional history exists CKD HGB USE SMARTSET 15081 04/12/202404/12, 08/02/2022, 11/18/2021, Additional history exists O2 [...] filedocumented as of this encounter Care Teams Desktop Support Specialist Relationship Specialty Start Date End Date Amparo Rich DO [address] [place] [facility] [place] [address] PCP - General Family Medicine 02/21/22 documented as of this encounter
--- OUTSIDE RECORDS SUMMARY | 2023-06-24 11:10 | External Medical Summary | Summary of Care ---
Author Name Unknown Organization [facility] Address [address] [facility] [place] [address] Phone [phone] Care Team Providers Care Robotics Software Engineer Name Role Phone Amparo Rich DO Primary Care Provider [phone] Encounter Details Date Type Department Care Team (Late st Contact Info) Description 05/30/2023 Result Scan Unspecified Department Mukul Martinez PA-C [address] [place] [address] <No scans attached> Allergies Active Allergy Reactions Criticality Noted Date Comments Bee Venom High 11/17/2011 Life threating reaction Morphine And Related 11/04/2002 vomitting with all types of pain meds documented as of this encounter (statuses as of 05/31/2023) Medications Medication Sig Dispensed Refills Start Date [...] pe 2 diabetes, HbA1C goal < 8% ([facility] [...] s:Type 2 diabetes, HbA1C goal < 8% ([facility]),HTN, goal below 140/90 Take 1 Tablet by mouth in the morning. 90 Tablet 3 08/02/2022 Active metFORMIN HCl 500 MG Oral Tablet (Glucophage)Indicati ons:Type 2 diabetes, HbA1C goal < 8% ([facility]) Take 1 Tablet by mouth 2 [...] ns:Type 2 diabetes, HbA1C goal < 8% ([facility]) Take 1 Tablet by mouth in [...] for AGITATION 60 Tablet 0 05/21/2023 Active documented as of this encounter (statuses as of 05/31/2023) Active Problems Problem Noted Date Diagnosed Date [...] angioplasty with stent 02/21/2012 Overview: Diagnonal #1. [facility] 02/16/12 Mixed dyslipidemia 01/05/2012 Tobacco use disorder 01/05/2012 Major depressive disorder 01/10/2011 Overview: ICD-10 update of inactive term Thoracic and lumbosacral neuritis 08/05/2007 Lumbosacral spondylosis 08/05/2007 Spinal stenosis of lumbar re gion without neurogenic claudication 08/05/2007 HTN, goal below 140/90 documented as of this encounter (statuses as of 05/31/2023) Resolved Problems Problem Noted Date Diagnosed Date [...] as of this encounter (statuses as of 05/31/2023) Immunizations Name Administration Dates Next Due COVID-19 [...] 10/24/2023 3:00 PM EDT Office Visit Neurology, [place] [address] [place] [id number] [address], [address], [place] [id number] Scheduled Procedures Name Priority Associated Diagnoses Date/Ti me COLONOSCOPY FLEXIBLE PROXIMAL DIAGNOSTIC Recall Gastrointestinal hemorrhage with melena History of colon polyps ESOPHAGOGASTRODUODENOSCOPY ( EGD), FLEXIBLE, TRANSORAL, DIAGNOSTIC Recall Gastrointestinal hemorrhage with melena History of colon polyps Health Maintenance Due Date Last Done Comments Alpha-1 Antitrypsin 1958 CKD PHOS USE SMARTSET 36946 1958 Hepatitis B (1 of 3 - [...] Additional history exists CKD HGB USE SMARTSET 93408 04/12/202404/12, 08/02/2022, 11/18/2021, Additional history exists O2 ASSESSMENT COMPLETED IN PAST YEAR FOR COPD 04/12/2024 04/12/2023 DTaP,Tdap,and Td Vaccines (2 - Td or Tdap) 10/05/2024 10/05/2014, 03/02/2008 LUNG CANCER SCREENING - USE SMARTSET 02116 Completed 08/12/2019, 06/07/2019, 12/19/2018, Additional history exists [...] Procedure Name Priority Date/Time Associated Diagnosis Comments ECHOCARDIOLOGY SCANNED RESULT 05/30/2023 documented in this encounter Results * ECHOCARDIOLOGY SCANNED RESULT (05/30/2023) 05/30/2023 Mukul Martinez PA-C ECHOCARDIOLOGY documented in this encounter Care Teams Robotics Software Engineer Relationship Specialty Start Date End Date Amparo Rich DO [address] [place] [facility] [place] [address] PCP - General Family Medicine 02/21/22 documented as of this encounter
--- OUTSIDE RECORDS SUMMARY | 2023-06-24 11:10 | External Medical Summary ---
Author Name Unknown Address Unknown Organization K01:[facility] - [address] [place] [address] Laboratory Report Ordering Provider Test Date Status BIANKA PEÑA 06/04/2023 14:16:50 Final Observation Date Value Abnormality Reference (Units ) Status BUN 06/04/2023 14:16:50 30 Above high normal 6-20 (mg/dL) Final Creatinine 06/04/2023 14:16:50 1.5 Above high normal 0.5-1.0 (mg/dL) Final Glomerular filtration rate/1.73 sq M.predicted [Volume Rate/Area] in Serum, Plasma or Blood by Creatinine-based formula (CKD-EPI) 06/04/2023 14:16:50 35 Below low normal >=60 (mL/min) Final eGFR is calculated based on the CKD-EPI 2020 equation SODIUM 06/04/2023 14:16:50 131 Below low normal 135 -146 (mmol/L) Final Potassium 06/04/2023 14:16:50 4.7 3.5-5.1 (m mol/L) Final Cl 06/04/2023 14:16:50 95 Below low normal 98- 107 (mmol/L) Final CO2 06/04/2023 14:16:50 22 22-32 (mmo l/L) Final Anion gap 06/04/2023 14:16:50 14 7-15 (mmol /L) Final Glucose 06/04/2023 14:16:50 212 Above high normal 70 -120 (mg/dL) Final Calcium 06/04/2023 14:16:50 9.5 8.4-10.2 ( mg/dL) Final Performing Location [facility] - [address] [place] [address]
[2023-06-24] MEDS ORDERED: SODIUM CHLORIDE 0.9% 1,000 ML IV ONE (11:44)
[2023-06-24] MEDS ORDERED: HALOPERIDOL LACTATE 5 MG/ML 1 ML VIAL IV STA (11:44)
[2023-06-24] MEDS ORDERED: LORazepam 1 MG/1 ML SYR ED Inj Use IV STA (11:44)
--- NOTE | 2023-06-24 11:49 | Emergency Department Note ---
Impression & Plan Atrial fibrillation with rapid ventricular response, Agitation, Acute dehydration, EDUARDO (acute kidney injury), Hospice care ED Provider Note NAME: JAKE HAYES AGE: 83 SEX: F : 1940 ARRIVES VIA: Ambulance INFORMANT: [Patient][EMS, nursing] ED PROVIDER(S): [Dario Xiao MD] CHIEF COMPLAINT: Illness HISTORY OF PRESENT ILLNESS: The patient is an 83-year-old female who was brought by ambulance for agitation and refusal to take her typical medications. The patient is a by report, on hospice. She is living with her daughter. The patient has become more agitated and more aggressive and more uncooperative. She has escalated to the point where she is no longer able to be cared for by the daughter. The daughter called EMS today and is asking for placement at a long-term facility. The patient is a poor historian. She is agitated, she does not want to talk about why she is here, she states that she is taking her medications. She is asking for something for pain. PMHx/PSHx/Social Hx: See Below PHYSICAL EXAM: GENERAL: Patient is in mild distress, agitated, rolling [id number] on the bed. HEENT: No acute trauma, normocephalic atraumatic, mucous membranes somewhat dry, no nasal congestion. NECK: No stridor, no adenopathy, no meningismus, trachea is midline. LUNGS: Clear to auscultation bilaterally, no wheeze, no rhonchi, breath sounds equal. HEART: Slightly tachycardic and irregular, no obvious murmurs. ABDOMEN: Soft, nontender, no peritonitis. EXTREMITIES: No cyanosis, full range of motion of all the joints without pain or difficulty. NEUROLOGIC: Awake, moves all extremities, agitated, poor historian. SKIN: No jaundice, no diaphoresis. DIFFERENTIAL DIAGNOSIS: Medication noncompliance, dementia, dehydration, electrolyte imbalance, infection, among others. EMERGENCY DEPARTMENT PROCEDURES: MEDICAL DECISION MAKING: There is no leukocytosis. The hemoglobin is quite high at 19.4, this is consistent with dehydration. There was a normal platelet count. Renal panel testing shows some acute kidney injury with a creatinine of 2.97. BUN was elevated at 145, consistent with significant dehydration. There was an anion gap of 18, likely from dehydration as well. The patient did have some liver enzyme elevations, these elevations were subtle and likely from dehydration. Urinalysis showed infection versus contamination. COVID, influenza and RSV tests are still pending. Chest x-ray did not show pneumonia or CHF. On exam, the patient was agitated, dehydrated and uncooperative. She was tachycardic. Patient is a hospice care patient, aggressive measures are not to be taken. IV hydration and pain control were warranted. The patient eventually had an IV placed. She received IV Haldol and IV Ativan, this did help her relax and make her much more cooperative however, her blood pressure was noted to be low after the administration of this medication. Patient was given a total of 2 L of IV saline for hydration while here in the ED. An ECG was performed, this did show rapid atrial fibrillation, the patient does have a history of A-fib. I suspect the patient is dehydrated, she has not been taking her medications. These 2 issues together have led to her tachycardia. The patient's daughter arrived, she was tearful as she can no longer care for her mother. She was asking for placement. I spoke with case management, I spoke with the on-call hospitalist. For now, the patient will be brought into our facility, placement may take some time as it is the holiday weekend. Of note, I have not given any medication for the rapid A-fib. The patient's blood pressure is already low. Some of the tachycardia is from just the dehydration itself. If the tachycardia persists when she is adequately hydrated, beta-laureano therapy or Cardizem therapy may be indicated. Prior/Outside records/notes reviewed: Today's EMS notes. ECG per my interpretation: Indication was tachycardia. The ECG shows a rapid atrial fibrillation with a rate of 145. There is some diffuse nonspecific ST change. There is no ST elevation, no PVCs. The QTc is 444. Continuous Cardiac Monitoring per my interpretation: An order was placed for continuous cardiac monitoring. The monitor shows a rate of 136 with atrial fibrillation. Imaging/x-ray results per my interpretation: Chest x-ray shows some chronic change, no pneumonia or CHF. Chronic Medical/Social conditions affecting care: Advanced age. Care/Management discussed with: Case management and the on-call hospitalist. Level of care consideration(s): After review of the information above and other included data: --I believe the patient requires escalation of care to admission Critical Care Note: I have personally spent 43 minutes of critical care time in the direct management of this patient. This includes bedside care, interpretation of diagnostic studies, and testing, discussion with consultants, patient, and family members, and other required patient management activities. This 43 minutes is in excess of all separately billable procedures. DISPOSITION: Admission Past Med/Surg History Medical History Major depressive disorder Lumbosacral spondylosis CKD (chronic kidney disease), stage III Diabetic polyneuropathy associated with type 2 diabetes mellitus Centrilobular emphysema Wheezing Failure of outpatient treatment Flu-like symptoms Atrial flutter with rapid ventricular response CHF (congestive heart failure) PUD (peptic ulcer disease) Paroxysmal atrial fibrillation Smoker Obesity Nocturnal hypoxemia Per records CAD (coronary artery disease) S/p PCI with BMS to D1 in 2011 COPD (chronic obstructive pulmonary disease) Per records Diabetes mellitus, type 2 Osteoarthritis History of kidney stones GERD (gastroesophageal reflux disease) Hyperlipidemia Hypertension Surgical History S/P angioplasty with stent History of cystoscopy History of colonoscopy History of hysterectomy History of repair of rotator cuff RT History of tooth extraction History of tonsillectomy and adenoidectomy History of cataract surgery RT/LEFT History of heart artery stent 1 STENT PLACED to D1 in 2011 Family History Son Family history of diabetes mellitus Other No family history of adverse response to anesthesia Social History Smoking Status: Former smoker Tobacco Type: Cigarettes Cigarettes Per Day: 20 PER DAY; Second Hand Exposure: No; Do You Dip or Chew Tobacco: No; Hx Alcohol Use: No Hx Substance Use: No Preferred Language: Malay Communication Ability: Effective Anesthesiology Teacher Required: No Beliefs That Will Affect Care: None Current Living Situation: Alone Feels Safe at Home: Yes Assistive Devices: Cane and Walker Allergies Allergies Allergy/AdvReac Type Severity Reaction Status Date / Time codeine Allergy Mild SICK Verified 05/26/23 10:18 propoxyphene Allergy Mild SICK Verified 05/26/23 10:18 BEE STING Allergy Severe Anaphylaxis Uncoded 05/26/23 10:18 Home Meds Home Medications Medication Instructions Recorded Confirmed aspirin 81 mg tablet 81 mg PO QAM 12/02/23 12/31/23 tramadol 50 mg tablet 50 mg PO Q4H PRN Pain 05/26/23 06/24/23 trazodone 100 mg tablet 100 mg PO HS 05/26/23 06/24/23 docusate sodium 100 mg capsule 100 mg PO DAILY 06/24/23 06/24/23 fentanyl 25 mcg/hr transdermal 1 patch transdermal Q72H 06/24/23 06/24/23 patch Previous Rx's Medication Instructions Recorded furosemide 40 mg tablet 40 mg PO QAM #20 tabs 06/01/23 spironolactone 25 mg tablet 25 mg PO QAM #30 tabs 06/01/23 Results & Data (ED) Vital Signs Vital Signs - 24 hr 06/24/23 11:12 06/24/23 11:18 06/24/23 11:30 Pulse Rate 120 H 136 H 130 H Pulse Rate from SpO2 Sensor 106 H Respiratory Rate 13 Blood Pressure Blood Pressure Mean Pulse Oximetry 95 99 Oxygen Delivery Method Room Air Room Air Oxygen Flow Rate Sepsis Recent Fever Within 48 Hours No Sepsis New/Unexplained Change in Mental Status No Sepsis Action Taken by Nursing No Action Required 06/24/23 12:16 06/24/23 12:52 06/24/23 12:55 Pulse Rate 126 H 136 H 135 H Pulse Rate from SpO2 Sensor 107 H 99 H 85 Respiratory Rate 19 17 19 Blood Pressure 111/86 77/52 L 82/37 L Blood Pressure Mean 94 60 52 Pulse Oximetry 94 90 90 Oxygen Delivery Method Room Air Room Air Room Air Oxygen Flow Rate Sepsis Recent Fever Within 48 Hours Sepsis New/Unexplained Change in Mental Status Sepsis Action Taken by Nursing 06/24/23 13:01 06/24/23 13:04 06/24/23 13:30 Pulse Rate 126 H 149 H 131 H Pulse Rate from SpO2 Sensor 67 81 Respiratory Rate 20 18 14 Blood Pressure 67/36 L 81/60 L Blood Pressure Mean 46 67 Pulse Oximetry 90 93 95 Oxygen Delivery Method Room Air Room Air Oxygen Flow Rate Sepsis Recent Fever Within 48 Hours Sepsis New/Unexplained Change in Mental Status Sepsis Action Taken by Nursing 06/24/23 13:59 06/24/23 14:01 Pulse Rate 92 H 118 H Pulse Rate from SpO2 Sensor Respiratory Rate 14 15 Blood Pressure 91/51 L 70/47 L Blood Pressure Mean 64 54 Pulse Oximetry 94 97 Oxygen Delivery Method Nasal Cannula Nasal Cannula Oxygen Flow Rate 2 2 Sepsis Recent Fever Within 48 Hours Sepsis New/Unexplained Change in Mental Status Sepsis Action Taken by [facility] Medications Current Medication List: was personally reviewed by me Laboratory Data Attestation: I reviewed the patient's lab results. 06/24/23 12:50 06/24/23 12:50 Lab Results 06/24/23 06/24/23 Range/Units 12:50 13:43 WBC 10.20 (4.8-10.8) K/ul RBC 6.98 H (4.20-5.40) M/uL Hgb 19.4 H (12.0-16.0) g/dl Hct 59.2 H (37.0-47.0) % MCV 84.8 (80.0-100.0) fL MCH 27.8 (25.0-34.0) pg MCHC 32.8 (32.0-36.0) g/dL RDW Std Deviation 45.3 (36.4-46.3) fL RDW Coeff of Dash 16.2 H (11.5-14.5) % Plt Count 328 (130-400) K/uL MPV 11.2 (9.4-12.4) fL Immature Gran % (Auto) 0.5 % Neut % (Auto) 80.8 % Lymph % (Auto) 12.9 % [place] % (Auto) 5.1 % Eos % (Auto) 0.3 % Baso % (Auto) 0.4 % Neut # (Auto) 8.24 H (1.40-6.50) K/uL Lymph # (Auto) 1.32 (1.20-3.40) K/uL [place] # (Auto) 0.52 (0.11-0.59) K/uL Eos # (Auto) 0.03 (0.00-0.50) K/uL Baso # (Auto) 0.04 (0.00-0.20) K/uL Immature Gran # (Auto) 0.05 (0.01-0.20) K/uL Sodium 133 L (136-145) mmol/L Potassium 4.3 (3.5-5.1) mmol/L Chloride 93 L (98-107) mmol/L Carbon Dioxide 22 (21-32) mmol/L Anion Gap 18 H (3-11) BUN 145 H (6-23) mg/dl Creatinine 2.97 H (0.6-1.2) mg/dl Est Cr Clr Drug Dosing 11.9 ml/min Est GFR ( Amer) 16.4 ml/min Est GFR (Non-Af Amer) 14.2 ml/min BUN/Creatinine Ratio 48.8 H (10-20) Glucose 186 H (70-99(Fasting)) mg/dl Calcium 10.6 H (8.6-10.3) mg/dl Magnesium 2.7 H (1.7-2.4) mg/dl Total Bilirubin 1.1 H (0.2-1.0) mg/dl AST 54 H (13-39) U/L ALT 55 H (7-52) U/L Alkaline Phosphatase 206 H (34-104) U/L Total Protein 9.7 H (6.0-8.3) gm/dl Albumin 4.7 (3.4-5.0) gm/dl Globulin 5.0 H (2.5-4.0) gm/dl Albumin/Globulin Ratio 0.9 (0.9-2) Urine Color Yellow Urine Appearance Cloudy A (Clear) Urine pH 5.5 (4.5-7.5) Ur Specific Archbold 1.016 (1.000-1.030) Urine Protein Trace H (Negative) Urine Glucose (UA) 2+ H (Negative) Urine Ketones Negative (Negative) Urine Blood Negative (Negative) Urine Nitrite Negative (Negative) Urine Bilirubin Negative (Negative) Urine Urobilinogen Negative (Negative) Ur Leukocyte Esterase Negative (Negative) Urine WBC (Auto) 10-30 H (0-5) /hpf Urine RBC (Auto) 0-4 (0-4) /hpf U Hyaline Cast (Auto) 10-30 H (0-5) /lpf U Epithel Cells (Auto) >30 H (0-5) /lpf Urine Bacteria (Auto) Negative (Negative) Ur Renal Epithelial Cell >30 H (0-5) /lpf Urine Yeast Not Reportable Administered Medications Discontinued Medications Haloperidol Lactate (Haloperidol Lactate 5 Mg/Ml 1 Ml Vial) 2.5 mg IV NOW STA Stop: 06/24/23 11:45 Last Admin: 06/24/23 12:42 Dose: 2.5 mg Documented By: TIFF Sodium Chloride (Nss) 1,000 mls @ 999 mls/hr IV .Q1H1M ONE Stop: 06/24/23 12:44 Last Infusion: 06/24/23 14:01 Dose: Infused Documented By: Admin: 06/24/23 12:43 Dose: 999 mls/hr Documented By: TIFF Sodium Chloride (Nss) 500 mls @ 999 mls/hr IV .Q31M ONE Stop: 06/24/23 13:44 Last Infusion: 06/24/23 14:44 Dose: Infused Documented By: Admin: 06/24/23 14:07 Dose: 999 mls/hr Documented By: TIFF Sodium Chloride (Nss) 500 mls @ 999 mls/hr IV .Q31M ONE Stop: 06/24/23 14:53 Last Admin: 06/24/23 14:39 Dose: 999 mls/hr Documented By: TIFF Lorazepam (Lorazepam 1 Mg/1 Ml Syr Ed Inj Use) 1 mg IV ONE STA Stop: 06/24/23 11:45 Last Admin: 06/24/23 12:43 Dose: 1 mg Documented By: TIFF Imaging Data Radiologist's Impression: Chest X-Ray 06/24/23 11:44 SINGLE VIEW CHEST CLINICAL HISTORY: Generalized weakness. FINDINGS: An AP, portable, upright chest radiograph is compared to study dated 05/29/2023. The examination is degraded by portable technique and patient rotation. The heart is enlarged noting atherosclerotic calcification of the thoracic aorta. The pulmonary vasculature is noncongested. Chronic interstitial thickening is similar to previous. There is mild bibasilar scarring/atelectasis. The lungs and pleural spaces are otherwise clear. No pneumothorax is seen. The skeletal structures are osteopenic. There is chronic deformity of the right proximal humerus with surgical anchors in the right humeral head. IMPRESSION: Cardiomegaly with no active disease in the chest. ACT 112: Negative or not required by law. Electronically signed by: Dario Stallings M.D. 06/24/2023 12:14 PM Discharge Plan Visit Data Chief Complaint: Illness ED Provider: Dario Xiao Discharge Problem: Atrial fibrillation with rapid ventricular response, Agitation, Acute dehydration, EDUARDO (acute kidney injury), Hospice care Patient Disposition: Admitted As Inpatient Condition: Fair Forms Stand Alone Forms: [place] Prescriptions Prescriptions: No Action trazodone 100 mg tablet 100 mg PO HS aspirin 81 mg Tablet 81 mg PO QAM tramadol 50 mg tablet 50 mg PO Q4H PRN (Reason: Pain) spironolactone 25 mg Tablet 25 mg PO QAM Qty: 30 0RF furosemide 40 mg Tablet 40 mg PO QAM Qty: 20 0RF docusate sodium 100 mg Capsule 100 mg PO DAILY fentanyl 25 mcg/hr Patch 72 Hour 1 patch TRANSDERMAL Q72H Referrals Referrals: Amparo Rich DO [Primary Care Provider] -
--- NOTE | 2023-06-24 12:15 | XRay Report ---
SINGLE VIEW CHEST CLINICAL HISTORY: Generalized weakness. FINDINGS: An AP, portable, upright chest radiograph is compared to study dated 05/29/2023. The examina tion is degraded by portable technique and patient rotation. The heart is enlarged noting atheroscler otic calcification of the thoracic aorta. The pulmonary vasculature is noncongested. Chronic intersti tial thickening is similar to previous. There is mild bibasilar scarring/atelectasis. The lungs and p leural spaces are otherwise clear. No pneumothorax is seen. The skeletal structures are osteopenic. T here is chronic deformity of the right proximal humerus with surgical anchors in the right humeral he ad. IMPRESSION: Cardiomegaly with no active disease in the chest. ACT 112: Negative or not required by law. Electronically signed by: Dario Stallings M.D. 06/24/2023 12:14 PM
[2023-06-24] MEDS ORDERED: SODIUM CHLORIDE 0.9% 500 ML IV ONE ×3 (13:14→16:32)
[2023-06-24 13:38] LABS: Hematocrit (blood only) 59.2 % (37.0-47.0); Hemoglobin 19.4 g/dl (12.0-16.0); Mean Corpuscular Hemoglobin 27.8 pg (25.0-34.0); Mean Corpuscular Hgb Conc 32.8 g/dL (32.0-36.0); Mean Corpuscular Volume 84.8 fL (80.0-100.0); Mean Platelet Volume 11.2 fL (9.4-12.4); Platelet Count 328 K/uL (130-400); RDW Coefficient of Variation 16.2 % (11.5-14.5); RDW Standard Deviation 45.3 fL (36.4-46.3); Red Blood Count 6.98 M/uL (4.20-5.40)
[2023-06-24 13:55] LABS: Appearance Urine Cloudy (Clear); Bacteria Urine Automated Negative (Negative); Bilirubin Urine Negative (Negative); Blood Urine Negative (Negative); Color Urine Yellow; Epithelial Cell Urine Auto >30 /lpf (0-5); Glucose Urine UA 2+ (Negative); Ketones Urine Negative (Negative); Leukocyte Esterase Urine Negative (Negative); Nitrite Urine Negative (Negative); Protein Urine Trace (Negative); Specific Gravity Urine 1.016 (1.000-1.030); Urobilinogen Urine Negative (Negative); pH Urine 5.5 (4.5-7.5)
[2023-06-24 13:58] LABS: Basophils # (auto) 0.04 K/uL (0.00-0.20); Basophils % (auto) 0.4 %; Eosinophils # (auto) 0.03 K/uL (0.00-0.50); Eosinophils % (auto) 0.3 %; Immature Granulocytes # (auto) 0.05 K/uL (0.01-0.20); Immature Granulocytes % (auto) 0.5 %; Lymphocytes # (auto) 1.32 K/uL (1.20-3.40); Lymphocytes % (auto) 12.9 %; Monocytes # (auto) 0.52 K/uL (0.11-0.59); Monocytes % (auto) 5.1 %; Neutrophils # (auto) 8.24 K/uL (1.40-6.50); Neutrophils % (auto) 80.8 %
[2023-06-24 14:11] LABS: Albumin Globulin Ratio 0.9 (0.9-2); Albumin Level 4.7 gm/dl (3.4-5.0); BUN Creatinine Ratio 48.8 (10-20); Bilirubin,Total 1.1 mg/dl (0.2-1.0); Calcium 10.6 mg/dl (8.6-10.3); Creatinine Clr Calc Pharmacy 11.9 ml/min; Est GFR (African American) 16.4 ml/min; Est GFR (Non-African American) 14.2 ml/min; Magnesium 2.7 mg/dl (1.7-2.4); Potassium 4.3 mmol/L (3.5-5.1); Total Protein 9.7 gm/dl (6.0-8.3)
[2023-06-24 14:18] LABS: Renal Epithelial Cells Urine >30 /lpf (0-5)
[2023-06-24 14:21] LABS: RBC Urine Automated 0-4 /hpf (0-4)
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
[2023-06-24 15:08] LABS: Influenza A virus by PCR Negative (Neg); Influenza B virus by PCR Negative (Neg); RSV by PCR Negative (Neg); SARS CoV2 RNA(COVID-19) Ceph NEGATIVE (Negative)
[2023-06-24] MEDS ORDERED: METOPROLOL TARTRATE 1 MG/ML VIAL IV STA (15:43)
[2023-06-24] MEDS ORDERED: GLUCOSE 40% GEL 15 GM TUBE PO PRN (18:04)
[2023-06-24] MEDS ORDERED: LORazepam 0.5 MG in SYRINGE 0.25 ML IV PRN (18:04)
[2023-06-24] MEDS ORDERED: ONDANSETRON INJ 2 MG/ML 2 ML VIAL IV PRN (18:04)
[2023-06-24] MEDS ORDERED: GLUCAGON FOR INJ 1 MG VIAL SQ PRN (18:04)
[2023-06-24] MEDS ORDERED: CARBOHYDRATES FOR HYPOGLYCEMIA PO PRN (18:04)
[2023-06-24] MEDS ORDERED: GLUCOSE 10 TAB/TUBE PO PRN (18:04)
[2023-06-24] MEDS ORDERED: ONDANSETRON 4 MG OD TAB SL PRN (18:04)
[2023-06-24] MEDS ORDERED: DEXTROSE 50% 50 ML SYRINGE IV PRN (18:04)
[2023-06-24] MEDS ORDERED: LORazepam 0.5 MG TAB PO PRN (18:04)
[2023-06-24] MEDS: INSULIN ASPART PER UNIT CHARGE SC SCH (19:15)
[2023-06-25] MEDS: CHECK fentaNYL PATCH PLACEMENT SCH ×4 (00:30→23:55)
[2023-06-25] MEDS: INSULIN ASPART PER UNIT CHARGE SC SCH ×5 (01:34→21:09)
[2023-06-25] MEDS: traZODone HCL 100 MG TAB PO SCH ×2 (01:34→21:09)
[2023-06-25 06:10] LABS: Calcium 8.8 mg/dl (8.6-10.3); Magnesium 2.3 mg/dl (1.7-2.4); Potassium 4.4 mmol/L (3.5-5.1)
[2023-06-25 06:37] LABS: BUN Creatinine Ratio 47.9 (10-20); Est GFR (African American) 21.7 ml/min; Est GFR (Non-African American) 18.7 ml/min
[2023-06-25] MEDS ORDERED: METOPROLOL TARTRATE 1 MG/ML VIAL IV STA (08:07)
[2023-06-25] MEDS: SODIUM CHLORIDE 0.9% 1,000 ML IV SCH ×2 (08:14→14:51)
[2023-06-25] MEDS: DOCUSATE SODIUM 100 MG CAP PO SCH (08:15)
[2023-06-25] MEDS: ASPIRIN 81 MG ECTAB PO SCH (08:15)
[2023-06-25 08:16] LABS: Basophils # (auto) 0.07 K/uL (0.00-0.20); Basophils % (auto) 0.6 %; Eosinophils # (auto) 0.23 K/uL (0.00-0.50); Eosinophils % (auto) 1.9 %; Hematocrit (blood only) 51.2 % (37.0-47.0); Hemoglobin 17.1 g/dl (12.0-16.0); Immature Granulocytes # (auto) 0.04 K/uL (0.01-0.20); Immature Granulocytes % (auto) 0.3 %; Lymphocytes # (auto) 0.99 K/uL (1.20-3.40); Lymphocytes % (auto) 8.2 %; Mean Corpuscular Hemoglobin 28.3 pg (25.0-34.0); Mean Corpuscular Hgb Conc 33.4 g/dL (32.0-36.0); Mean Corpuscular Volume 84.8 fL (80.0-100.0); Monocytes # (auto) 0.72 K/uL (0.11-0.59); Monocytes % (auto) 5.9 %; Neutrophils # (auto) 10.07 K/uL (1.40-6.50); Neutrophils % (auto) 83.1 %; Platelet Count 224 K/uL (130-400); RDW Standard Deviation 45.8 fL (36.4-46.3); Red Blood Count 6.04 M/uL (4.20-5.40); White Blood Count 12.12 K/ul (4.8-10.8)
[2023-06-25] MEDS ORDERED: METOPROLOL TARTRATE 50 MG TAB PO SCH (09:00)
--- NOTE | 2023-06-25 09:16 | Hospitalist Progress Note ---
Date of Service June 25, 2023 Assessment & Plan (1) Agitation: Plan: Likely 2/2 afib with RVR and dehydration wtih noncompliance/hospice. Patient was just on high doses of metoprolol which hospice removed within the last two weeks. Restarting this now along with rehydration efforts. TSH within normal limits and she has no other clear source of infection or infectious symptoms. (2) Acute dehydration: Plan: Cont with rehydration efforts. Labs are improved and patient is now alert and interactive. Trial of diet today to see how she does. (3) Atrial fibrillation with rapid ventricular response: Plan: 2/2 noncompliance with betablocker which was rapidly removed from regimen in the last couple of weeks. Restart beta laureano for rate control. Consult cardiology (4) EDUARDO (acute kidney injury): Plan: 2/2 above. Cont rehydration efforts. (5) Chronic heart failure with preserved ejection fraction (HFpEF): Plan: chronic, Stable, cont current therapy (6) ASCVD (arteriosclerotic cardiovascular disease): Plan: Stable, chronic, cont current therapy (7) Diabetic polyneuropathy associated with type 2 diabetes mellitus: Plan: chronic, around goal for her age wtih recent A1C 7.8. Cont with insulin for correction factor. Hold carb coverage at this time. Hold glargine. (8) Chronic pain: Plan: patient came in on duragesic patch at 25mcg, cont this now to avoid withdrawal symptoms. DVT proph: heparin DNR Dipso- cont PCU monitoring until HR is better controlled. Overall she is a patient who was on hospice and is transitioning into SNF care. The goal with be to avoid aggressive escalations in care and maximize her comfort during her treatments. Palliative care consult placed for after the holiday weekend. I spent a total [id number] coordinating, documenting, and providing care for this patient excluding time spent in the performance of separately billed services Jeanne Florez DO [facility] Hospitalist Admission and Anticipated Discharge Date Admission Date: June 24, 2023 Subjective 83-year-old female presents to ER with progressive combativeness agitation and weakness. She currently lives with daughter who feels she can no longer care for patient at home and would like to pursue SNF placement. Patient has been on hospice and this is temporarily revoked. Overnight she was rehydrated and remained tachycardic on telemetry in rapid ventricular response. She had a good response to Lopressor 2.5 in the ER last night. Additional 5 mg Lopressor given this morning with restarting her metoprolol stopped 2 weeks ago at approximately 50% of that dose. Continue to titrate metoprolol for appropriate heart rate co ntrol. She is awake and talking this morning and overall denies any specific symptoms. She appears to be comfortable in no acute distress. Physical Exam Physical Exam: CONSTITUTIONAL: WNWD, vitals as above, generally, NAD EYES: normal conjunctivae, no scleral icterus ENT: external ear and nose normal NECK: trachea midline RESPIRATORY: clear to auscultation bilaterally, no crackles, rales or wheezes, normal respiratory effort CARDIOVASCULAR: tachy irregular rate and rhythm, S1 and 2 heard without murmurs, gallops or rubs, no JVD, no peripheral edema, CHEST: inspection of chest was normal GASTROINTESTINAL: soft, nontender, ND, no guarding MUSCULOSKELETAL: strength 5/5 throughout, head is normocephalic and atraumatic SKIN: warm and dry NEUROLOGIC: CN 2-12 grossly intact, no sensory deficit, normal cognition, normal speech, no tremor PSYCHIATRIC: alert cooperative and oriented to person, place and time. Euthymic mood, makes good eye contact, language grossly intact, recent and remote memory grossly intact. Results & Data Results & Data Vital Signs (Past 12 Hours) Vital Signs Temp Pulse Pulse Resp BP BP Pulse Ox 06/25/23 08:28 122 H 06/25/23 08:14 125 H 156/108 H 06/25/23 07:23 125 H 17 156/108 H 96 06/25/23 03:52 120 H 14 127/89 91 06/25/23 00:45 35.6 C L 108 H 16 111/76 94 06/25/23 00:04 35.6 C L 108 H 16 111/76 94 O2 Del Method 06/25/23 08:28 06/25/23 08:14 06/25/23 07:23 Room Air 06/25/23 03:52 Room Air 06/25/23 00:45 Room Air 06/25/23 00:04 Room Air Laboratory Results Short CBC 06/24/23 06/25/23 06/25/23 Range/Units 12:50 05:35 06:20 WBC 10.20 Cancelled Cancelled (4.8-10.8) K/ul Hgb 19.4 H Cancelled Cancelled (12.0-16.0) g/dl Hct 59.2 H Cancelled Cancelled (37.0-47.0) % Plt Count 328 Cancelled Cancelled (130-400) K/uL 06/25/23 Range/Units 08:05 WBC 12.12 H (4.8-10.8) K/ul Hgb 17.1 H (12.0-16.0) g/dl Hct 51.2 H (37.0-47.0) % Plt Count 224 (130-400) K/uL BMP 06/24/23 06/25/23 12:50 05:35 Sodium 133 L 140 Potassium 4.3 4.4 Chloride 93 L 109 H Carbon Dioxide 22 19 L BUN 145 H 113 H D Creatinine 2.97 H 2.36 H D Glucose 186 H 112 H Calcium 10.6 H 8.8 Liver Function 06/24/23 Range/Units 12:50 Total Bilirubin 1.1 H (0.2-1.0) mg/dl AST 54 H (13-39) U/L ALT 55 H (7-52) U/L Alkaline Phosphatase 206 H (34-104) U/L Albumin 4.7 (3.4-5.0) gm/dl Urine 06/24/23 Range/Units 13:43 Urine Color Yellow Urine Appearance Cloudy A (Clear) Urine pH 5.5 (4.5-7.5) Ur Specific [place] 1.016 (1.000-1.030) Urine Protein Trace H (Negative) Urine Glucose (UA) 2+ H (Negative) Medications Administered Current Inpatient Medications Aspirin (Aspirin 81 Mg Ectab) 81 mg PO QAM [facility] Stop: 07/25/23 08:59 Last Admin: 06/25/23 08:15 Dose: 81 mg Dextrose (Dextrose 50% 50 Ml Syringe) 25 - 50 ml IV UD PRN; Protocol PRN Reason: Hypoglycemia Protocol Stop: 07/24/23 18:03 Docusate Sodium (Docusate Sodium 100 Mg Cap) 100 mg PO DAILY [facility] Stop: 07/25/23 08:59 Last Admin: 06/25/23 08:15 Dose: 100 mg Fentanyl (Fentanyl 25 Mcg/Hr Tdsy) 25 mcg TD Q72H [facility] Stop: 07/11/23 08:59 Glucagon (Glucagon For Inj 1 Mg Vial) 1 mg SQ UD PRN; Protocol PRN Reason: Hypoglycemia Protocol Stop: 07/24/23 18:03 Glucose (Glucose 10 Tab/Tube) 4 - 8 tab PO UD PRN; Protocol PRN Reason: Hypoglycemia Treatment Stop: 07/24/23 18:03 Glucose (Glucose 40% Gel 15 Gm Tube) 15 - 30 gm PO UD PRN; Protocol PRN Reason: Hypoglycemia Protocol Stop: 07/24/23 18:03 Lorazepam 0.5 mg/ Syringe 0.5 mls @ 2 mls/min IV Q4H PRN; Protocol PRN Reason: Anxiety/Agitation Stop: 07/24/23 18:03 Sodium Chloride (Nss) 1,000 mls @ 125 mls/hr IV .Q8H [facility] Stop: 06/25/23 23:44 Last Admin: 06/25/23 08:14 Dose: 125 mls/hr Insulin Aspart (Insulin Aspart Per Unit Charge) 0 units SC ACHS [facility] Stop: 07/24/23 18:03 Last Admin: 06/25/23 08:14 Dose: Not Given Lorazepam (Lorazepam 0.5 Mg Tab) 0.5 mg PO Q4H PRN PRN Reason: Anxiety/Agitation Stop: 07/24/23 18:03 Metoprolol Tartrate (Metoprolol Tartrate 50 Mg Tab) 50 mg PO BID [facility] Stop: 07/25/23 08:59 Last Admin: 06/25/23 08:39 Dose: 50 mg Miscellaneous (Carbohydrates For Hypoglycemia ) 15 - 30 gm PO UD PRN PRN Reason: Hypoglycemia Protocol Stop: 07/24/23 18:03 Miscellaneous (Check Fentanyl Patch Placement) 1 each N/A QS [facility] Stop: 07/25/23 00:00 Last Admin: 06/25/23 08:14 Dose: 1 each Miscellaneous (Fentanyl Patch Remove & Waste) 1 each N/A Q3D [facility] Stop: 07/27/23 08:58 Ondansetron HCl (Ondansetron Inj 2 Mg/Ml 2 Ml Vial) 4 mg IV Q4H PRN PRN Reason: Nausea &/or Vomiting Stop: 07/24/23 18:03 Ondansetron HCl (Ondansetron 4 Mg Od Tab) 4 mg SL Q4H PRN PRN Reason: Nausea &/or Vomiting Stop: 07/24/23 18:03 Tramadol HCl (Tramadol Hcl 50 Mg Tablet) 50 mg PO Q4H PRN PRN Reason: Pain Stop: 07/24/23 18:03 Trazodone HCl (Trazodone Hcl 100 Mg Tab) 100 mg PO HS [facility] Stop: 07/24/23 20:59 Last Admin: 06/25/23 01:34 Dose: Not Given
--- NOTE | 2023-06-25 11:40 | Cardiology Consultation ---
Date of Consultation June 25, 2023 Assessment & Plan (1) Atrial fibrillation with rapid ventricular response: (2) Chronic heart failure with preserved ejection fraction (HFpEF): (3) EDUARDO (acute kidney injury): (4) Agitation: Plan 83-year-old female with complex history as outlined referred for evaluation of atrial fibrillation with elevated ventricular response rate. Patient has known history of persistent atrial fibrillation requiring high-dose beta-laureano for rate control. Recent issues with declining mental status, chronic pain with referral to hospice Now with agitation and confusion at home. Beta-blockers discontinued 2 weeks ago Current exam markedly diminished mental status. Only focality to exam is abdominal tenderness on palpation Laboratory studies reflect acute renal insufficiency Impression: 1.Atrial fibrillation with rapid ventricular response: Would resume beta- laureano, and past required 250 mg metoprolol succinate daily 2. History of heart failure with preserved ejection fraction none on exam appears hypovolemic 3. Acute renal insufficiency 4. Chronic pain with focal tenderness to upper abdomen on palpation 5. Acute on chronic delirium History of Present Illness Reason for Consultation: Atrial fibrillation with elevated ventricular response rate Requesting Physician: Dr. Florez Attending Physician: Jeanne Florez, DO History of Present Illness 83-year-old female admitted from home with increasing agitation and declining mental status. Recently instituted hospice care with notable hold in beta- laureano therapy. Underlying medical issues include 1. 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 Atherosclerotic coronary disease single-vessel status post remote coronary stent 4 Chronic obstructive lung 5. CKD stage III 6. Persistent but abrupt decline in mental status, dementia/confusion Recent past records reviewed. Patient presents this admission from home. Recently initiated into hospice due to increasing dementia, agitation. Family unable to care for patient at home and presented today for further evaluation. Clinical history notable for discontinuation of beta-laureano 2 weeks ago. Laboratory studies reflect acute renal insufficiency Patient moderately obtunded and unable to provide additional information Heart rate elevated Allergies Allergy/AdvReac Type Severity Reaction Status Date / Time codeine Allergy Mild SICK Verified 05/26/23 10:18 propoxyphene Allergy Mild SICK Verified 05/26/23 10:18 BEE STING Allergy Severe Anaphylaxis Uncoded 05/26/23 10:18 Home Medications Medication Instructions Recorded Confirmed Type aspirin 81 mg tablet 81 mg PO QAM 05/26/23 06/24/23 History tramadol 50 mg tablet 50 mg PO Q4H PRN Pain 05/26/23 06/24/23 History trazodone 100 mg tablet 100 mg PO HS 05/26/23 06/24/23 History furosemide 40 mg tablet 40 mg PO QAM #20 tabs 06/01/23 06/24/23 Rx spironolactone 25 mg tablet 25 mg PO QAM #30 tabs 06/01/23 06/24/23 Rx docusate sodium 100 mg capsule 100 mg PO DAILY 06/24/23 06/24/23 History fentanyl 25 mcg/hr transdermal 1 patch transdermal Q72H 06/24/23 06/24/23 History patch Patient History Medical History Major depressive disorder Lumbosacral spondylosis CKD (chronic kidney disease), stage III Diabetic polyneuropathy associated with type 2 diabetes mellitus Centrilobular emphysema Wheezing Failure of outpatient treatment Flu-like symptoms Atrial flutter with rapid ventricular response CHF (congestive heart failure) PUD (peptic ulcer disease) Paroxysmal atrial fibrillation Smoker Obesity Nocturnal hypoxemia Per records CAD (coronary artery disease) S/p PCI with BMS to D1 in 2011 COPD (chronic obstructive pulmonary disease) Per records Diabetes mellitus, type 2 Osteoarthritis History of kidney stones GERD (gastroesophageal reflux disease) Hyperlipidemia Hypertension Surgical History S/P angioplasty with stent History of cystoscopy History of colonoscopy History of hysterectomy History of repair of rotator cuff RT History of tooth extraction History of tonsillectomy and adenoidectomy History of cataract surgery RT/LEFT History of heart artery stent 1 STENT PLACED to D1 in 2011 Family History Son Family history of diabetes mellitus Other No family history of adverse response to anesthesia Social History Smoking Status: Never smoker Tobacco Type: Cigarettes Cigarettes Per Day: 20 PER DAY; Second Hand Exposure: No; Do You Dip or Chew Tobacco: No; Hx Alcohol Use: No Hx Substance Use: No Preferred Language: Persian Communication Ability: Effective 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 Beliefs That Will Affect Care: None Current Living Situation: Family Other Information That Helps Us Care for You: No Feels Safe at Home: Yes Safety Concerns: Feels Safe At This Time Assistive Devices: Bedside Commode, Cane, Hospital Bed, Walker and Wheelchair Review of Systems Review of Systems: All systems reviewed & are unremarkable except as noted in HPI & below Physical Exam Constitutional: + altered mental status; no acute distre ss and not ill appearing Eyes: PERRL, conjunctivae normal, anicteric sclerae ENMT: external ear and nose normal, oropharynx normal Neck: trachea midline, no thyromegaly Respiratory: Auscultation: + diminished lung sounds Cardiovascular: Rate/Rhythm: + tachycardic and + irregularly irregular Heart Sounds: normal S1, normal S2 and + murmur Vessels: no JVD Extremities: no edema Gastrointestinal (Abdomen): Percussion/Palpation: + abdomen tender (Left upper quadrant) Results & Data Vital Signs (Past 12 Hours) Vital Signs Temp Pulse Pulse Resp BP BP Pulse Ox 06/25/23 11:20 36.5 C 120 H 16 129/108 H 96 06/25/23 08:28 122 H 06/25/23 08:14 125 H 156/108 H 06/25/23 07:23 125 H 17 156/108 H 96 06/25/23 03:52 120 H 14 127/89 91 06/25/23 00:45 35.6 C L 108 H 16 111/76 94 06/25/23 00:04 35.6 C L 108 H 16 111/76 94 O2 Del Method 06/25/23 11:20 Room Air 06/25/23 08:28 06/25/23 08:14 06/25/23 07:23 Room Air 06/25/23 03:52 Room Air 06/25/23 00:45 Room Air 06/25/23 00:04 Room Air Laboratory Results Laboratory Results - last 24 hr 06/24/23 06/24/23 06/24/23 12:50 13:43 14:00 WBC 10.20 RBC 6.98 H Hgb 19.4 H Hct 59.2 H MCV 84.8 MCH 27.8 MCHC 32.8 RDW Std Deviation 45.3 RDW Coeff of Dash 16.2 H Plt Count 328 MPV 11.2 Immature Gran % (Auto) 0.5 Neut % (Auto) 80.8 Lymph % (Auto) 12.9 [place] % (Auto) 5.1 Eos % (Auto) 0.3 Baso % (Auto) 0.4 Neut # (Auto) 8.24 H Lymph # (Auto) 1.32 [place] # (Auto) 0.52 Eos # (Auto) 0.03 Baso # (Auto) 0.04 Immature Gran # (Auto) 0.05 Absolute Nucleated RBC Nucleated RBC % (auto) Neutrophils % (Manual) Band Neutrophils % Lymphocytes % (Manual) Prolymphocyte % Reactive Lymphs % (Man) Monocytes % (Manual) Eosinophils % (Manual) Basophils % (Manual) Metamyelocytes % (Man) Myelocytes % (Man) Promyelocytes % (Man) Blast Cells % (Manual) Plasma Cell % (Manual) Other Cells % Nucleated RBC % Neutrophils # (Manual) Band Neutrophils # Total Absolute Neuts Lymphocytes # (Manual) Prolymphocyte # Reactive Lymphs # Total Abs Lymphocytes Monocytes # (Manual) Eosinophils # (Manual) Basophils # (Manual) Metamyelocytes # (Man) Myelocytes # (Manual) Promyelocytes # (Man) Blast Cells # (Man) Plasma Cell # (Manual) Other Cells # Nucleated RBCs # (Man) Hypersegmented Neuts Hyposegmented Neuts Hypogranular Neuts Large Granular Lymphs # Lrg Granular Lymphs Hairy Cells Smudge Cells Toxic Granulation Toxic Vacuolation Dohle Bodies Jessica Rods Platelet Estimate Hypogranular Platelets Giant Platelets Platelet Satelliting RBC Morphology Polychromasia Hypochromasia Poikilocytosis Basophilic Stippling Anisocytosis Microcytosis Macrocytosis Spherocytes Pappenheimer Bodies Sickle Cells Target Cells Tear Drop Cells Ovalocytes Stomatocytes [place] Bodies Echinocytes Acanthocytes (Spur) Rouleaux RBC Agglutinates Schistocytes Sezary Cell Sodium 133 L Potassium 4.3 Chloride 93 L Carbon Dioxide 22 Anion Gap 18 H BUN 145 H Creatinine 2.97 H Est Cr Clr Drug Dosing 11.9 Est GFR ( Amer) 16.4 Est GFR (Non-Af Amer) 14.2 BUN/Creatinine Ratio 48.8 H Glucose 186 H POC Glucose Calcium 10.6 H Magnesium 2.7 H Total Bilirubin 1.1 H AST 54 H ALT 55 H Alkaline Phosphatase 206 H Total Protein 9.7 H Albumin 4.7 Globulin 5.0 H Albumin/Globulin Ratio 0.9 Urine Color Yellow Urine Appearance Cloudy A Urine pH 5.5 Ur Specific [place] 1.016 Urine Protein Trace H Urine Glucose (UA) 2+ H Urine Ketones Negative Urine Blood Negative Urine Nitrite Negative Urine Bilirubin Negative Urine Urobilinogen Negative Ur Leukocyte Esterase Negative Urine WBC (Auto) 10-30 H Urine RBC (Auto) 0-4 U Hyaline Cast (Auto) 10-30 H U Epithel Cells (Auto) >30 H Urine Bacteria (Auto) Negative Ur Renal Epithelial Cell >30 H Urine Yeast Not Reportable SARS-CoV-2 (PCR) NEGATIVE Influenza Type A (PCR) Negative Influenza Type B (PCR) Negative RSV (RT-PCR) Negative Blood Parasites ID 06/25/23 06/25/23 06/25/23 01:30 05:35 06:20 WBC Cancelled Cancelled RBC Cancelled Cancelled Hgb Cancelled Cancelled Hct Cancelled Cancelled MCV Cancelled Cancelled MCH Cancelled Cancelled MCHC Cancelled Cancelled RDW Std Deviation Cancelled Cancelled RDW Coeff of Dash Cancelled Cancelled Plt Count Cancelled Cancelled MPV Cancelled Cancelled Immature Gran % (Auto) Cancelled Cancelled Neut % (Auto) Cancelled Cancelled Lymph % (Auto) Cancelled Cancelled [place] % (Auto) Cancelled Cancelled Eos % (Auto) Cancelled Cancelled Baso % (Auto) Cancelled Cancelled Neut # (Auto) Cancelled Cancelled Lymph # (Auto) Cancelled Cancelled [place] # (Auto) Cancelled Cancelled Eos # (Auto) Cancelled Cancelled Baso # (Auto) Cancelled Cancelled Immature Gran # (Auto) Cancelled Cancelled Absolute Nucleated RBC Cancelled Cancelled Nucleated RBC % (auto) Cancelled Cancelled Neutrophils % (Manual) Cancelled Cancelled Band Neutrophils % Cancelled Cancelled Lymphocytes % (Manual) Cancelled Cancelled Prolymphocyte % Cancelled Cancelled Reactive Lymphs % (Man) Cancelled Cancelled Monocytes % (Manual) Cancelled Cancelled Eosinophils % (Manual) Cancelled Cancelled Basophils % (Manual) Cancelled Cancelled Metamyelocytes % (Man) Cancelled Cancelled Myelocytes % (Man) Cancelled Cancelled Promyelocytes % (Man) Cancelled Cancelled Blast Cells % (Manual) Cancelled Cancelled Plasma Cell % (Manual) Cancelled Cancelled Other Cells % Cancelled Cancelled Nucleated RBC % Cancelled Cancelled Neutrophils # (Manual) Cancelled Cancelled Band Neutrophils # Cancelled Cancelled Total Absolute Neuts Cancelled Cancelled Lymphocytes # (Manual) Cancelled Cancelled Prolymphocyte # Cancelled Cancelled Reactive Lymphs # Cancelled Cancelled Total Abs Lymphocytes Cancelled Cancelled Monocytes # (Manual) Cancelled Cancelled Eosinophils # (Manual) Cancelled Cancelled Basophils # (Manual) Cancelled Cancelled Metamyelocytes # (Man) Cancelled Cancelled Myelocytes # (Manual) Cancelled Cancelled Promyelocytes # (Man) Cancelled Cancelled Blast Cells # (Man) Cancelled Cancelled Plasma Cell # (Manual) Cancelled Cancelled Other Cells # Cancelled Cancelled Nucleated RBCs # (Man) Cancelled Cancelled Hypersegmented Neuts Cancelled Cancelled Hyposegmented Neuts Cancelled Cancelled Hypogranular Neuts Cancelled Cancelled Large Granular Lymphs Cancelled Cancelled # Lrg Granular Lymphs Cancelled Cancelled Hairy Cells Cancelled Cancelled Smudge Cells Cancelled Cancelled Toxic Granulation Cancelled Cancelled Toxic Vacuolation Cancelled Cancelled Dohle Bodies Cancelled Cancelled Jessica Rods Cancelled Cancelled Platelet Estimate Cancelled Cancelled Hypogranular Platelets Cancelled Cancelled Giant Platelets Cancelled Cancelled Platelet Satelliting Cancelled Cancelled RBC Morphology Cancelled Cancelled Polychromasia Cancelled Cancelled Hypochromasia Cancelled Cancelled Poikilocytosis Cancelled Cancelled Basophilic Stippling Cancelled Cancelled Anisocytosis Cancelled Cancelled Microcytosis Cancelled Cancelled Macrocytosis Cancelled Cancelled Spherocytes Cancelled Cancelled Pappenheimer Bodies Cancelled Cancelled Sickle Cells Cancelled Cancelled Target Cells Cancelled Cancelled Tear Drop Cells Cancelled Cancelled Ovalocytes Cancelled Cancelled Stomatocytes Cancelled Cancelled [place] Bodies Cancelled Cancelled Echinocytes Cancelled Cancelled Acanthocytes (Spur) Cancelled Cancelled Rouleaux Cancelled Cancelled RBC Agglutinates Cancelled Cancelled Schistocytes Cancelled Cancelled Sezary Cell Cancelled Cancelled Sodium 140 Potassium 4.4 Chloride 109 H Carbon Dioxide 19 L Anion Gap 12 H BUN 113 H D Creatinine 2.36 H D Est Cr Clr Drug Dosing 15.0 Est GFR ( Amer) 21.7 Est GFR (Non-Af Amer) 18.7 BUN/Creatinine Ratio 47.9 H Glucose 112 H POC Glucose 107 H Calcium 8.8 Magnesium 2.3 Total Bilirubin AST ALT Alkaline Phosphatase Total Protein Albumin Globulin Albumin/Globulin Ratio Urine Color Urine Appearance Urine pH Ur Specific [place] Urine Protein Urine Glucose (UA) Urine Ketones Urine Blood Urine Nitrite Urine Bilirubin Urine Urobilinogen Ur Leukocyte Esterase Urine WBC (Auto) Urine RBC (Auto) U Hyaline Cast (Auto) U Epithel Cells (Auto) Urine Bacteria (Auto) Ur Renal Epithelial Cell Urine Yeast SARS-CoV-2 (PCR) Influenza Type A (PCR) Influenza Type B (PCR) RSV (RT-PCR) Blood Parasites ID Cancelled Cancelled 06/25/23 06/25/23 06/25/23 07:22 08:05 11:32 WBC 12.12 H RBC 6.04 H Hgb 17.1 H Hct 51.2 H MCV 84.8 MCH 28.3 MCHC 33.4 RDW Std Deviation 45.8 RDW Coeff of Dash 15.0 H Plt Count 224 MPV 11.0 Immature Gran % (Auto) 0.3 Neut % (Auto) 83.1 Lymph % (Auto) 8.2 [place] % (Auto) 5.9 Eos % (Auto) 1.9 Baso % (Auto) 0.6 Neut # (Auto) 10.07 H Lymph # (Auto) 0.99 L [place] # (Auto) 0.72 H Eos # (Auto) 0.23 Baso # (Auto) 0.07 Immature Gran # (Auto) 0.04 Absolute Nucleated RBC Nucleated RBC % (auto) Neutrophils % (Manual) Band Neutrophils % Lymphocytes % (Manual) Prolymphocyte % Reactive Lymphs % (Man) Monocytes % (Manual) Eosinophils % (Manual) Basophils % (Manual) Metamyelocytes % (Man) Myelocytes % (Man) Promyelocytes % (Man) Blast Cells % (Manual) Plasma Cell % (Manual) Other Cells % Nucleated RBC % Neutrophils # (Manual) Band Neutrophils # Total Absolute Neuts Lymphocytes # (Manual) Prolymphocyte # Reactive Lymphs # Total Abs Lymphocytes Monocytes # (Manual) Eosinophils # (Manual) Basophils # (Manual) Metamyelocytes # (Man) Myelocytes # (Manual) Promyelocytes # (Man) Blast Cells # (Man) Plasma Cell # (Manual) Other Cells # Nucleated RBCs # (Man) Hypersegmented Neuts Hyposegmented Neuts Hypogranular Neuts Large Granular Lymphs # Lrg Granular Lymphs Hairy Cells Smudge Cells Toxic Granulation Toxic Vacuolation Dohle Bodies Jessica Rods Platelet Estimate Hypogranular Platelets Giant Platelets Platelet Satelliting RBC Morphology Polychromasia Hypochromasia Poikilocytosis Basophilic Stippling Anisocytosis Microcytosis Macrocytosis Spherocytes Pappenheimer Bodies Sickle Cells Target Cells Tear Drop Cells Ovalocytes Stomatocytes [place] Bodies Echinocytes Acanthocytes (Spur) Rouleaux RBC Agglutinates Schistocytes Sezary Cell Sodium Potassium Chloride Carbon Dioxide Anion Gap BUN Creatinine Est Cr Clr Drug Dosing Est GFR ( Amer) Est GFR (Non-Af Amer) BUN/Creatinine Ratio Glucose POC Glucose 141 H 130 H Calcium Magnesium Total Bilirubin AST ALT Alkaline Phosphatase Total Protein Albumin Globulin Albumin/Globulin Ratio Urine Color Urine Appearance Urine pH Ur Specific [place] Urine Protein Urine Glucose (UA) Urine Ketones Urine Blood Urine Nitrite Urine Bilirubin Urine Urobilinogen Ur Leukocyte Esterase Urine WBC (Auto) Urine RBC (Auto) U Hyaline Cast (Auto) U Epithel Cells (Auto) Urine Bacteria (Auto) Ur Renal Epithelial Cell Urine Yeast SARS-CoV-2 (PCR) Influenza Type A (PCR) Influenza Type B (PCR) RSV (RT-PCR) Blood Parasites ID
--- NOTE | 2023-06-25 14:34 | Electrocardiogram Report ---
Test Reason : Blood Pressure : / mmHG Vent. Rate : 145 BPM Atrial Rate : 000 BPM P-R Int : 000 ms QRS Dur : 072 ms QT Int : 286 ms P-R-T Axes : 000 061 051 degrees QTc Int : 444 ms Atrial fibrillation with rapid ventricular response Nonspecific ST and T wave abnormality Abnormal ECG When compared with ECG of 29-MAY-2023 19:45, No significant change was found Confirmed by Jae Molina ([id number] on 06/25/2023 2:34:08 PM Referred By: REFERRED SELF Confirmed By:Jae Molina
[2023-06-25] MEDS ORDERED: METOPROLOL SUCC 50MG EXT REL TAB PO STA (20:52)
[2023-06-26] MEDS: ASPIRIN 81 MG ECTAB PO SCH (07:54)
[2023-06-26] MEDS: METOPROLOL TARTRATE 100 MG TAB PO SCH ×2 (07:54→21:35)
[2023-06-26] MEDS: CHECK fentaNYL PATCH PLACEMENT SCH ×2 (07:55→16:12)
[2023-06-26 07:57] LABS: Hematocrit (blood only) 50.8 % (37.0-47.0); Hemoglobin 16.8 g/dl (12.0-16.0); Mean Corpuscular Hemoglobin 28.2 pg (25.0-34.0); Mean Corpuscular Hgb Conc 33.1 g/dL (32.0-36.0); Mean Corpuscular Volume 85.2 fL (80.0-100.0); Mean Platelet Volume 10.7 fL (9.4-12.4); Platelet Count 186 K/uL (130-400); RDW Coefficient of Variation 14.7 % (11.5-14.5); RDW Standard Deviation 45.6 fL (36.4-46.3); Red Blood Count 5.96 M/uL (4.20-5.40); White Blood Count 11.17 K/ul (4.8-10.8)
[2023-06-26] MEDS: INSULIN ASPART PER UNIT CHARGE SC SCH ×4 (07:58→21:34)
[2023-06-26] MEDS: traMADol HCL 50 MG TABLET PO PRN ×2 (08:00→16:12)
[2023-06-26] MEDS: DOCUSATE SODIUM 100 MG CAP PO SCH (08:00)
[2023-06-26 08:25] LABS: Albumin Level 3.6 gm/dl (3.4-5.0); BUN Creatinine Ratio 48.3 (10-20); Bilirubin,Total 0.9 mg/dl (0.2-1.0); Calcium 9.2 mg/dl (8.6-10.3); Creatinine Clr Calc Pharmacy 23.5 ml/min; Est GFR (African American) 37.2 ml/min; Est GFR (Non-African American) 32.1 ml/min; Globulin 3.6 gm/dl (2.5-4.0); Potassium 4.7 mmol/L (3.5-5.1); Total Protein 7.2 gm/dl (6.0-8.3)
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
--- NOTE | 2023-06-26 12:27 | Cardiology Progress Note ---
Date of Service June 26, 2023 Assessment & Plan (1) Atrial fibrillation with rapid ventricular response: (2) Chronic heart failure with preserved ejection fraction (HFpEF): (3) EDUARDO (acute kidney injury): (4) Agitation: Plan 83-year-old female with complex history as outlined referred for evaluation of atrial fibrillation with elevated ventricular response rate. Patient has known history of persistent atrial fibrillation requiring high-dose beta-laureano for rate control. Recent issues with declining mental status, chronic pain with referral to hospice Now with agitation and confusion at home. Beta-blockers discontinued 2 weeks ago Current exam markedly diminished mental status. Only focality to exam is abdominal tenderness on palpation Laboratory studies reflect acute renal insufficiency Impression: 1.Atrial fibrillation with rapid ventricular response: Would resume beta- laureano, and past required 250 mg metoprolol succinate daily 2. History of heart failure with preserved ejection fraction none on exam appears hypovolemic 3. Acute renal insufficiency 4. Chronic pain with focal tenderness to upper abdomen on palpation 5. Acute on chronic delirium/dementia Patient clinically improved heart rate and blood pressure improving since initiating oral regimen. Would consider transitioning back to prior beta- laureano therapy metoprolol succinate 150 mg a.m. 100 mg p.o. p.m. Will sign off reach contact with question Admission and Anticipated Discharge Date Admission Date: June 24, 2023 Subjective Patient was seen in her room, chart, telemetry reviewed Being assisted with nurse but eating More alert Heart rate trending towards better control now taking medications orally Results & Data Vital Signs (Past 12 Hours) Vital Signs Temp Pulse Pulse Resp BP Pulse Ox O2 Del Method 06/26/23 10:48 36.7 C 102 H 17 126/83 96 Room Air 06/26/23 10:14 Room Air 06/26/23 07:44 141 H 15 141/111 H 90 Room Air 06/26/23 07:40 134 H 06/26/23 03:18 37.6 C H 128 H 20 147/97 H 92 Room Air Laboratory Results Laboratory Results - last 24 hr 06/25/23 06/25/23 06/26/23 16:20 20:07 07:20 WBC RBC Hgb Hct MCV MCH MCHC RDW Std Deviation RDW Coeff of Dash Plt Count MPV Sodium Potassium Chloride Carbon Dioxide Anion Gap BUN Creatinine Est Cr Clr Drug Dosing Est GFR ( Amer) Est GFR (Non-Af Amer) BUN/Creatinine Ratio Glucose POC Glucose 106 H 111 H 108 H Calcium Total Bilirubin AST ALT Alkaline Phosphatase Total Protein Albumin Globulin Albumin/Globulin Ratio 06/26/23 06/26/23 07:28 11:29 WBC 11.17 H RBC 5.96 H Hgb 16.8 H Hct 50.8 H MCV 85.2 MCH 28.2 MCHC 33.1 RDW Std Deviation 45.6 RDW Coeff of Dash 14.7 H Plt Count 186 MPV 10.7 Sodium 142 Potassium 4.7 Chloride 111 H Carbon Dioxide 16 L Anion Gap 15 H BUN 73 H D Creatinine 1.51 H D Est Cr Clr Drug Dosing 23.5 Est GFR ( Amer) 37.2 Est GFR (Non-Af Amer) 32.1 BUN/Creatinine Ratio 48.3 H Glucose 112 H POC Glucose 140 H Calcium 9.2 Total Bilirubin 0.9 AST 28 ALT 30 Alkaline Phosphatase 121 H Total Protein 7.2 D Albumin 3.6 Globulin 3.6 Albumin/Globulin Ratio 1.0
--- NOTE | 2023-06-26 12:49 | Electrocardiogram Report ---
Test Reason : Blood Pressure : / mmHG Vent. Rate : 098 BPM Atrial Rate : 066 BPM P-R Int : 000 ms QRS Dur : 072 ms QT Int : 340 ms P-R-T Axes : 000 048 035 degrees QTc Int : 434 ms Atrial fibrillation Nonspecific T wave abnormality Abnormal ECG When compared with ECG of 24-JUN-2023 12:12, Nonspecific T wave abnormality, improved in Inferior leads Nonspecific T wave abnormality no longer evident in Lateral leads Confirmed by Adam Dang ([id number]) on 06/26/2023 12:49:28 PM Referred By: REFERRED SELF Confirmed By:Adam Dang
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
--- NOTE | 2023-06-26 13:53 | XRay Report ---
RIGHT FOOT 2 VIEWS CLINICAL HISTORY: Acute foot drop. FINDINGS: AP and lateral views of the right foot are compared to study dated 09/27/2022. The skeletal s tructures are osteopenic. No fracture is identified. Mild osteoarthritic change is seen throughout th e foot, greatest at the first metatarsal phalangeal joint and at the tarsometatarsal articulations. A n os navicularis is incidentally noted. Degenerative spurring is seen along the dorsal aspect of the tarsal bones. There is a large dorsal heel spur. The overlying soft tissues are within normal limits. IMPRESSION: No acute bony abnormality is identified. Electronically signed by: Dario Stallings M.D. 06/26/2023 1:52 PM
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
[2023-06-26] MEDS: traZODone HCL 100 MG TAB PO SCH (21:35)
[2023-06-27] MEDS: CHECK fentaNYL PATCH PLACEMENT SCH ×3 (00:05→16:50)
[2023-06-27 07:26] LABS: Hematocrit (blood only) 51.2 % (37.0-47.0); Mean Corpuscular Hemoglobin 28.3 pg (25.0-34.0); Mean Corpuscular Hgb Conc 33.2 g/dL (32.0-36.0); Mean Corpuscular Volume 85.3 fL (80.0-100.0); Mean Platelet Volume 11.1 fL (9.4-12.4); Platelet Count 185 K/uL (130-400); RDW Coefficient of Variation 15.1 % (11.5-14.5); RDW Standard Deviation 46.5 fL (36.4-46.3); White Blood Count 10.39 K/ul (4.8-10.8)
[2023-06-27 07:32] LABS: Calcium 9.3 mg/dl (8.6-10.3); Magnesium 1.9 mg/dl (1.7-2.4)
[2023-06-27 07:38] LABS: BUN Creatinine Ratio 38.9 (10-20); Creatinine Clr Calc Pharmacy 24.6 ml/min; Est GFR (African American) 39.4 ml/min; Phosphorus 2.7 mg/dl (2.5-4.9)
[2023-06-27] MEDS: INSULIN ASPART PER UNIT CHARGE SC SCH ×4 (08:52→20:38)
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
[2023-06-27] MEDS: METOPROLOL TARTRATE 100 MG TAB PO SCH ×2 (09:31→20:44)
[2023-06-27] MEDS: ASPIRIN 81 MG ECTAB PO SCH (09:31)
[2023-06-27] MEDS: DOCUSATE SODIUM 100 MG CAP PO SCH (09:36)
[2023-06-27] MEDS: fentaNYL 25 MCG/HR TDSY TD SCH (09:37)
--- NOTE | 2023-06-27 18:35 | Communication Note ---
Date of Service: June 27, 2023 Brief Pall Med Note At admission, family advised they cannot care for pt at home and seek SNF placement. LIkely will be dc to SNF with rehab trial then transition to LTC as alternate option for dc to LTC comfort care at SNF is not as financially lucrative for SNF +/- paucity of "EOL" care beds at area SNFs. Thank you for allowing us to participate in the ongoing care of this patient. Please don't hesitate to call or page with any additional concerns. Dr. Rosaline Mcginnis DNP Director, Palliative Care
[2023-06-27] MEDS: traZODone HCL 100 MG TAB PO SCH (20:44)
[2023-06-28] MEDS: CHECK fentaNYL PATCH PLACEMENT SCH ×3 (00:15→17:03)
[2023-06-28] MEDS: INSULIN ASPART PER UNIT CHARGE SC SCH ×4 (08:58→21:00)
[2023-06-28] MEDS: ASPIRIN 81 MG ECTAB PO SCH (08:59)
[2023-06-28] MEDS: METOPROLOL TARTRATE 100 MG TAB PO SCH ×2 (09:00→21:09)
[2023-06-28] MEDS: DOCUSATE SODIUM 100 MG CAP PO SCH (09:02)
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
[2023-06-28] MEDS: traZODone HCL 100 MG TAB PO SCH (21:06)
[2023-06-29] MEDS: CHECK fentaNYL PATCH PLACEMENT SCH ×4 (00:05→23:11)
[2023-06-29] MEDS: INSULIN ASPART PER UNIT CHARGE SC SCH ×4 (07:46→20:24)
[2023-06-29] MEDS: ASPIRIN 81 MG ECTAB PO SCH (08:12)
[2023-06-29] MEDS: METOPROLOL TARTRATE 100 MG TAB PO SCH ×2 (08:12→20:24)
[2023-06-29] MEDS: DOCUSATE SODIUM 100 MG CAP PO SCH (08:16)
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
[2023-06-29] MEDS: traZODone HCL 100 MG TAB PO SCH (20:25)
[2023-06-30] MEDS: INSULIN ASPART PER UNIT CHARGE SC SCH ×4 (07:28→21:25)
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
[2023-06-30] MEDS: fentaNYL 25 MCG/HR TDSY TD SCH (09:40)
[2023-06-30] MEDS: ASPIRIN 81 MG ECTAB PO SCH (09:40)
[2023-06-30] MEDS: METOPROLOL SUCC 50MG EXT REL TAB PO SCH ×2 (09:41→21:22)
[2023-06-30] MEDS: CHECK fentaNYL PATCH PLACEMENT SCH ×2 (09:41→16:24)
[2023-06-30] MEDS: DOCUSATE SODIUM 100 MG CAP PO SCH (09:43)
[2023-06-30] MEDS: traZODone HCL 100 MG TAB PO SCH (21:23)
[2023-07-01] MEDS: CHECK fentaNYL PATCH PLACEMENT SCH ×4 (00:20→23:25)
[2023-07-01] MEDS: METOPROLOL SUCC 50MG EXT REL TAB PO SCH ×2 (08:00→21:02)
[2023-07-01] MEDS: ASPIRIN 81 MG ECTAB PO SCH (08:01)
[2023-07-01] MEDS: INSULIN ASPART PER UNIT CHARGE SC SCH ×4 (08:01→21:00)
[2023-07-01] MEDS: DOCUSATE SODIUM 100 MG CAP PO SCH (08:03)
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
[2023-07-01] MEDS: traZODone HCL 100 MG TAB PO SCH (21:01)
[2023-07-02] MEDS: INSULIN ASPART PER UNIT CHARGE SC SCH ×4 (09:38→20:49)
[2023-07-02] MEDS: CHECK fentaNYL PATCH PLACEMENT SCH ×2 (09:40→18:19)
[2023-07-02] MEDS: ASPIRIN 81 MG ECTAB PO SCH (09:40)
[2023-07-02] MEDS: DOCUSATE SODIUM 100 MG CAP PO SCH (09:48)
[2023-07-02] MEDS: SODIUM CHLORIDE 0.9% 1,000 ML IV SCH (09:57)
[2023-07-02] MEDS: METOPROLOL SUCC 50MG EXT REL TAB PO SCH ×3 (11:49→20:02)
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
[2023-07-02] MEDS: traZODone HCL 100 MG TAB PO SCH (20:03)
[2023-07-03] MEDS: CHECK fentaNYL PATCH PLACEMENT SCH ×2 (00:10→08:49)
[2023-07-03] MEDS: SODIUM CHLORIDE 0.9% 1,000 ML IV SCH (06:00)
[2023-07-03] MEDS: INSULIN ASPART PER UNIT CHARGE SC SCH ×2 (08:47→12:22)
[2023-07-03] MEDS: METOPROLOL SUCC 50MG EXT REL TAB PO SCH (08:48)
[2023-07-03] MEDS: ASPIRIN 81 MG ECTAB PO SCH (08:49)
[2023-07-03] MEDS: DOCUSATE SODIUM 100 MG CAP PO SCH (08:50)
[2023-07-03] MEDS: fentaNYL 25 MCG/HR TDSY TD SCH (08:58)
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
--- NOTE | 2023-07-03 09:51 | Communication Note ---
Date of Service: July 03, 2023 Brief Pall Med Note Pt has been accepted for LTC with hospice at [facility]! GOC identified and aligning with pt/family wishes. No further acute/urgent inpatient Palliative Medicine needs at this time. I will sign off. NO charge submitted, pt not seen. Thank you for allowing us to participate in the ongoing care of this patient. Please don't hesitate to call or page with any additional concerns. Dr. Rosaline Mcginnis DNP Director, Palliative Care
== END 2023-07-03 13:37 | disposition hospice, inpatient (51) | DRG 683 ==
LOC: ED 11:04 → EDINP 14:40 → SUATTDRO 14:40 → 2E 18:05

== ENCOUNTER 2024-08-24 16:54 | Inpatient (IN) ==
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
[2024-08-24] MEDS: SODIUM CHLORIDE 0.9% 1,000 ML IV SCH ×2 (17:22→21:03)
[2024-08-24 18:20] LABS: Basophils # (auto) 0.06 K/uL (0.00-0.20); Basophils % (auto) 0.3 %; Eosinophils # (auto) 0.04 K/uL (0.00-0.50); Eosinophils % (auto) 0.2 %; Hematocrit (blood only) 50.7 % (37.0-47.0); Hemoglobin 15.9 g/dl (12.0-16.0); Immature Granulocytes # (auto) 0.14 K/uL (0.01-0.20); Immature Granulocytes % (auto) 0.8 %; Lymphocytes # (auto) 2.28 K/uL (1.20-3.40); Lymphocytes % (auto) 12.4 %; Mean Corpuscular Hemoglobin 28.2 pg (25.0-34.0); Mean Corpuscular Hgb Conc 31.4 g/dL (32.0-36.0); Mean Corpuscular Volume 89.9 fL (80.0-100.0); Monocytes # (auto) 1.33 K/uL (0.11-0.59); Monocytes % (auto) 7.2 %; Neutrophils # (auto) 14.57 K/uL (1.40-6.50); Neutrophils % (auto) 79.1 %; Platelet Count 307 K/uL (130-400); RDW Coefficient of Variation 14.4 % (11.5-14.5); RDW Standard Deviation 47.6 fL (36.4-46.3); Red Blood Count 5.64 M/uL (4.20-5.40); White Blood Count 18.42 K/ul (4.8-10.8)
--- NOTE | 2024-08-24 18:21 | XRay Report ---
Chest 1 view: 6:11 PM. Compared to prior dated 06/24/2023. Minimal cardiac enlargement. Lung palomares appear to be clear. No consolidation noted. Central airways are patent. No pleural effusion. Impression No acute process. Electronically signed by Estela Haider 08-24-2024 6:20 PM
[2024-08-24 18:25] LABS: Appearance Urine Cloudy (Clear); Bacteria Urine Automated 2+ (None Seen); Bilirubin Urine 1+ (Negative); Blood Urine Negative (Negative); Cast Urine Automated >20 /lpf (0-2); Color Urine Dark Yellow; Glucose Urine UA Negative (Negative); Hyaline Casts Urine Present /lpf (None Presnt); Ketones Urine Trace (Negative); Leukocyte Esterase Urine 1+ (Negative); Nitrite Urine Negative (Negative); Protein Urine 1+ (Negative); Specific Gravity Urine 1.027 (1.000-1.030); Urobilinogen Urine Negative (Negative); WBC Urine Automated 21-50 /hpf (0-5)
[2024-08-24 18:42] LABS: Troponin I High Sensitivity 1090.1 pg/ml (0-14)
[2024-08-24] MEDS: ACETAMINOPHEN 1,000 MG/100 ML VIAL IV STA (18:43)
[2024-08-24] MEDS: CEFEPIME 2000MG 2,000 MG/20 ML SYR IV STA (18:43)
[2024-08-24 18:44] LABS: Albumin Level 2.9 gm/dl (3.4-5.0); BUN Creatinine Ratio 52.2 (10-20); Bilirubin,Total 0.5 mg/dl (0.2-1.0); Calcium 8.7 mg/dl (8.6-10.3); Creatinine Clr Calc Pharmacy 21.9 ml/min; Magnesium 2.3 mg/dl (1.7-2.4); Total Protein 7.3 gm/dl (6.0-8.3)
[2024-08-24 18:45] LABS: Potassium 5.1 mmol/L (3.5-5.1)
[2024-08-24] MEDS ORDERED: VANCOMYCIN CONSULT ACTIVE PRN (18:48)
[2024-08-24] MEDS: SODIUM CHLORIDE 0.9% 500 ML IV ONE (18:52)
[2024-08-24 18:54] LABS: Influenza A virus by PCR Negative (Neg); Influenza B virus by PCR Negative (Neg); RSV by PCR Negative (Neg); SARS CoV2 RNA(COVID-19) Ceph NEGATIVE (Negative)
[2024-08-24 18:58] LABS: Bilirubin Direct 0.1 mg/dl (0-0.2)
[2024-08-24] MEDS: VANCOMYCIN HCL 1,250 MG in SODIUM CHLORIDE 0.9% 500 ML IV ONE (19:09)
[2024-08-24] MEDS: STAT IV Infusion **Titration per Protocol STA (20:59)
[2024-08-24] MEDS: SODIUM CHLORIDE 0.9% 1,000 ML IV ONE (21:28)
--- NOTE | 2024-08-24 21:38 | Surgery Consultation ---
<Statement entered by Nikita Morley, - 08/25/24 11:38> This patient has been discussed with the surgical PA and I agree with this plan. Recommend podiatry for evaluation and management. Date of Consultation August 24, 2024 Assessment & Plan (1) Non-healing wound of right heel: Patient is a 84-year-old female who presented from her nursing facility due to altered mental status and concern for becoming unresponsive and UTI. The patient was admitted to the medical service with concerns of septic shock, dehydration, and UTI. The patient also has a chronic wound to her right heel. The wound was evaluated at bedside this evening, the patient's daughter at bedside tells me that the [facility] was aware of the wound and have been doing local wound care. I discussed patient's case with attending surgeon, Dr. Storm Hurt, and at this time recommend consulting podiatry for further evaluation and possible debridement. Also recommend consulting wound care nurses for local wound care as well. General surgery will sign off, please re-consult with any questions or concerns History of Present Illness Reason for Consultation: right foot wound History of Present Illness The patient is an 84-year-old female who presented to the emergency department for concerns of altered mental status. The patient came from a nursing facility that's shes been residing in since last year. Per report, the patient has been ill for the last week or so and family was told she had a UTI and was started on antibiotics. However, over the last few days she had started worsening and has not been eating or drinking and was reportedly unresponsive and was sent here for further evaluation. The patient upon workup was found to be in septic shock thought to be secondary to UTI. The patient was also noted to have a right heel wound and general surgery was consulted for evaluation. [facility] and [facility] The patient is accompanied at bedside with family who provide most of the history due to the patient being altered. The patient is noted to have a black eschar wound to her right heel with some surrounding mild erythema. No active drainage or edema appreciated. Allergies Allergy/AdvReac Type Severity Reaction Status Date / Time codeine Allergy Mild SICK Verified 05/26/23 10:18 propoxyphene Allergy Mild SICK Verified 05/26/23 10:18 BEE STING Allergy Severe Anaphylaxis Uncoded 05/26/23 10:18 Home Medications Medication Instructions Recorded Confirmed Type tramadol 50 mg tablet 50 mg PO Q4H PRN Pain 05/26/23 08/24/24 History trazodone 100 mg tablet 100 mg PO HS 05/26/23 08/24/24 History acetaminophen 325 mg tablet 650 mg PO QID PRN Pain 08/24/24 08/24/24 History amoxicillin 250 mg capsule 250 mg PO TID 08/24/24 08/24/24 History aspirin 81 mg chewable tablet 81 mg PO DAILY 08/24/24 08/24/24 History bisacodyl 10 mg rectal suppository 10 mg OR DAILY PRN Constipation 08/24/24 08/24/24 History (Dulcolax (bisacodyl)) epinephrine 0.3 mg/0.3 mL 0.3 mg IM Q4H PRN ALLERGEY 08/24/24 08/24/24 History injection, auto-injector fentanyl 12 mcg/hr transdermal 12 mcg transdermal Q72H PRN Pain 08/24/24 08/24/24 History patch fluoxetine 20 mg capsule 20 mg PO DAILY 08/24/24 08/24/24 History magnesium hydroxide 400 mg/5 mL 30 ml PO DAILY PRN Constipation 08/24/24 08/24/24 History oral suspension (Milk of Magnesia) metformin 1,000 mg tablet 1,000 mg PO BID 08/24/24 08/24/24 History metoprolol tartrate 100 mg tablet 100 mg PO BID 08/24/24 08/24/24 History protein supplement 1 ea PO BID 08/24/24 08/24/24 History sennosides 8.6 mg-docusate sodium 1 tab-cap PO BID PRN Constipation 08/24/24 08/24/24 History 50 mg tablet (Senna with Docusate Sodium) sodium phosphates 19 gram-7 118 ml OR DAILY PRN Constipation 08/24/24 08/24/24 History gram/118 mL enema (Fleet Enema) Patient History Medical History Major depressive disorder Lumbosacral spondylosis CKD (chronic kidney disease), stage III Diabetic polyneuropathy associated with type 2 diabetes mellitus Centrilobular emphysema Wheezing Failure of outpatient treatment Flu-like symptoms Atrial flutter with rapid ventricular response CHF (congestive heart failure) PUD (peptic ulcer disease) Paroxysmal atrial fibrillation Smoker Obesity Nocturnal hypoxemia Per records CAD (coronary artery disease) S/p PCI with BMS to D1 in 2011 COPD (chronic obstructive pulmonary disease) Per records Diabetes mellitus, type 2 Osteoarthritis History of kidney stones GERD (gastroesophageal reflux disease) Hyperlipidemia Hypertension Surgical History S/P angioplasty with stent History of cystoscopy History of colonoscopy History of hysterectomy History of repair of rotator cuff RT History of tooth extraction History of tonsillectomy and adenoidectomy History of cataract surgery RT/LEFT History of heart artery stent 1 STENT PLACED to D1 in 2011 Family History Son Family history of diabetes mellitus Other No family history of adverse response to anesthesia Social History Smoking Status: Former smoker Tobacco Type: Cigarettes Cigarettes Per Day: 20 PER DAY; Second Hand Exposure: No; Do You Dip or Chew Tobacco: No; Hx Alcohol Use: No Hx Substance Use: No Preferred Language: Chinese Communication Ability: Effective Manager Specialty Required: No Beliefs That Will Affect Care: None Current Living Situation: Family Feels Safe at Home: Yes Assistive Devices: Bedside Commode, Cane, Hospital Bed, Walker and Wheelchair Review of Systems Review of Systems: All systems reviewed & are unremarkable except as noted in HPI & below (provided by family d/t pt mental status during exam) Physical Exam Constitutional: + ill appearing; no acute distress Cardiovascular: Rate/Rhythm: + tachycardic Musculoskeletal: Extremities: + lower extremity abnormal to inspection (RLE contracted (baseline per family). Black eschar wound over right heel ) Right Results & Data Vital Signs (Past 12 Hours) Vital Signs Temp Pulse Pulse Resp BP BP Pulse Ox 08/24/24 21:16 108 H 20 116/82 96 08/24/24 21:03 110 H 08/24/24 20:19 124 H 20 88/67 L 95 08/24/24 20:09 123 H 26 H 82/65 L 94 08/24/24 19:21 38.1 C H 113 H 20 129/103 H 97 08/24/24 18:17 130 H 26 H 91/72 L 95 08/24/24 17:59 39.1 C H 122 H 25 H 128/71 94 08/24/24 17:29 126 H 20 114/89 92 08/24/24 17:25 146 H 25 H 114/89 92 08/24/24 17:23 93 08/24/24 17:04 140 H 08/24/24 17:02 36.8 C 139 H 22 114/89 93 O2 Del Method O2 Flow Rate 08/24/24 21:16 Room Air 08/24/24 21:03 08/24/24 20:19 Nasal Cannula 2 08/24/24 20:09 Nasal Cannula 2 08/24/24 19:21 Nasal Cannula 2 08/24/24 18:17 Room Air 08/24/24 17:59 Room Air 08/24/24 17:29 Room Air 08/24/24 17:25 Room Air 08/24/24 17:23 Room Air 08/24/24 17:04 08/24/24 17:02 Room Air PG Care Time/CCT Total # of Minutes Spent Total Time Spent with Patient: Total time spent is greater than 50% in coordination of care (as documented) at patient's floor/unit and/or counseling patient: [place] [address] INT INP/OBS CARE 140MIN Patient Type New History Problem Focused Exam Problem Focused Medical Decision Making Straight Forward Diagnoses Non-healing wound of right heel S91.301A
[2024-08-24] MEDS: NOREPINEPHRINE/D5W 4 MG/250 ML PLCT IV SCH (21:47)
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
[2024-08-24] MEDS ORDERED: PIPERACILLIN/TAZOBACTAM 4.5 GM/100 ML BAG IV STA (23:48)
--- NOTE | 2024-08-25 00:08 | CT Scan Report ---
Exam(s): CT HEAD Without Contrast EXAM: CT Head Without Intravenous Contrast CLINICAL HISTORY: Reason for exam: AMS. TECHNIQUE: Axial computed tomography images of the head/brain without intravenous contrast. CTDI is 37.51 mGy and DLP is 624.41 mGy-cm. Automated exposure control was utilized for the study. A dose lowering technique was utilized adhering to the principles of ALARA. COMPARISON: 01/20/2021. FINDINGS: Brain: Unremarkable. No hemorrhage. No significant white matter disease. No edema. Ventricles: Unremarkable. No ventriculomegaly. Bones/joints: Unremarkable. No acute fracture. Soft tissues: Unremarkable. Sinuses: Unremarkable as visualized. No acute sinusitis. Mastoid air cells: There is partial opacification of the left mastoid sinus air cells. IMPRESSION: Atrophy. Nonspecific white matter disease. Findings appears similar to previous examination. If further evaluation is clinically necessary, consider correlation with MRI Electronically signed by: Sav Gauthier MD 08/25/24 00:07 AM
[2024-08-25] MEDS: NovoLIN-R INSULIN PER UNIT CHARGE IV STA (00:14)
--- NOTE | 2024-08-25 00:16 | Ultrasound Report ---
Exam(s): US ARTERIAL BILATERAL LOWER EXTREMITIES EXAM: US Duplex Bilateral Lower Extremities Arteries CLINICAL HISTORY: Reason for exam: eschar wounds on lower ext. Feeble pulse on bedside. TECHNIQUE: Real-time duplex ultrasound scan of the bilateral lower extremity arteries integrating B-mode two-dimensional vascular structure, Doppler spectral analysis and color flow Doppler imaging. COMPARISON: No relevant prior studies available. FINDINGS: The exam is limited due to patient's condition. Right common femoral artery: No occlusion or significant stenosis on color flow and spectral Doppler imaging. Triphasic waveforms were noted. Right superficial femoral artery: Biphasic waveforms were noted in the proximal superficial femoral artery. Monophasic waveforms were noted in the mid and distal superficial femoral artery Right popliteal artery: The right popliteal artery could not be examined. Right calf/foot arteries: . Monophasic waveforms were noted in the right calf vessels. Left common femoral artery: No occlusion or significant stenosis on color flow and spectral Doppler imaging. Triphasic waveforms were noted. Left superficial femoral artery: Biphasic waveforms were noted in the proximal superficial femoral artery. Monophasic waveforms were noted in the mid and distal superficial femoral artery Left popliteal artery: No occlusion on color flow and spectral Doppler imaging. Monophasic waveforms were noted.. Left calf/foot arteries: No occlusion on color flow and spectral Doppler imaging. Monophasic waveforms were noted.. Soft tissues: Unremarkable. IMPRESSION: Limited exam. There is evidence for significant arterial stenotic disease beginning at the level of the superficial femoral arteries bilaterally. If further evaluation is clinically necessary, consider correlation with CTA. Electronically signed by: Sav Gauthier MD 08/25/24 00:14 AM
--- NOTE | 2024-08-25 00:21 | CT Scan Report ---
Exam(s): CT ABDOMEN + PELVIS Without Contrast EXAM: CT Abdomen and Pelvis Without Intravenous Contrast CLINICAL HISTORY: Reason for exam: uti severe sepsis. TECHNIQUE: Axial computed tomography images of the abdomen and pelvis without intravenous contrast. CTDI is 24.84 mGy and DLP is 1137.6 mGy-cm. Automated exposure control was utilized for the study. A dose lowering technique was utilized adhering to the principles of ALARA. COMPARISON: 01/20/2021. FINDINGS: Exam is limited due to lack of contrast. The exam is further limited due to artifact. Lung bases: No consolidation. The heart is enlarged and contains coronary artery calcifications ABDOMEN: Liver: The liver is enlarged and lobulated. Gallbladder and bile ducts: The gallbladder is distended containing calculi. No ductal dilation. Pancreas: . The visualized portions of the pancreas, on this noncontrast study, are grossly unremarkable. Spleen: No splenomegaly. Adrenals: No mass. Kidneys and ureters: No obstructing stones. No hydronephrosis. Stomach and bowel: The stomach is decompressed. There is air and stool noted in the colon.. There are diverticula present on the colon. No significant inflammatory changes are seen. PELVIS: Appendix: The appendix is not visualized.. Bladder: A Lang catheter is noted within the urinary bladder.. Reproductive: The patient appears to be status post hysterectomy.. ABDOMEN and PELVIS: Intraperitoneal space: No free air. No significant fluid collection. Bones/joints: There are degenerative changes in the spine.. Soft tissues: Unremarkable. Vasculature: There are atherosclerotic changes. No abdominal aortic aneurysm. Lymph nodes: No enlarged lymph nodes. IMPRESSION: Limited exam. Gallbladder is distended containing calculi. Diverticulosis The liver is enlarged and somewhat lobulated suggesting cirrhotic changes. See discussion above Electronically signed by: Sav Gauthier MD 08/25/24 00:20 AM
[2024-08-25] MEDS ORDERED: GLUCOSE 10 TAB/TUBE PO PRN (01:32)
[2024-08-25] MEDS ORDERED: PHARMACY GLYCEMIC MGMT CONSULT PRN (01:32)
[2024-08-25] MEDS ORDERED: bisacodyL 10 MG SUPP PR PRN (01:32)
[2024-08-25] MEDS ORDERED: CARBOHYDRATES FOR HYPOGLYCEMIA PO PRN (01:32)
[2024-08-25] MEDS ORDERED: DEXTROSE 50% 50 ML SYRINGE IV PRN (01:32)
[2024-08-25] MEDS ORDERED: GLUCOSE 40% GEL 15 GM TUBE PO PRN (01:32)
[2024-08-25] MEDS ORDERED: GLUCAGON FOR INJ 1 MG VIAL SQ PRN (01:32)
[2024-08-25] MEDS ORDERED: EPINEPHrine INJ 1 MG/ML AMP IM PRN (01:59)
[2024-08-25] MEDS: ACETAMINOPHEN 1,000 MG/100 ML VIAL IV PRN (02:18)
[2024-08-25] MEDS: 4.5GM X1 IV STA (02:34)
[2024-08-25] MEDS: INSULIN ASPART PER UNIT CHARGE SC SCH ×2 (02:38→12:42)
[2024-08-25 03:27] LABS: INR 1.1 (0.9-1.1); Partial Thromboplastin Time 28 Seconds (21-31); Prothrombin Time 11.5 Seconds (9.0-12.0)
[2024-08-25] MEDS: HEPARIN 25000 UNIT/500 ML D5W 25,000 UNITS/500 ML BAG IV SCH (03:40)
[2024-08-25] MEDS: Heparin IV Adult Wt-Based Low-Dose *NO* INITIAL Bolus Protocol IV STA (04:09)
[2024-08-25] MEDS ORDERED: LEVALBUTEROL HCL 0.63 MG/3 ML NEB NEB PRN (05:15)
[2024-08-25 05:54] LABS: Basophils # (auto) 0.05 K/uL (0.00-0.20); Basophils % (auto) 0.4 %; Eosinophils # (auto) 0.09 K/uL (0.00-0.50); Eosinophils % (auto) 0.7 %; Hematocrit (blood only) 42.7 % (37.0-47.0); Hemoglobin 13.3 g/dl (12.0-16.0); Immature Granulocytes # (auto) 0.15 K/uL (0.01-0.20); Immature Granulocytes % (auto) 1.1 %; Lymphocytes # (auto) 1.64 K/uL (1.20-3.40); Lymphocytes % (auto) 12.5 %; Mean Corpuscular Hgb Conc 31.1 g/dL (32.0-36.0); Mean Platelet Volume 10.8 fL (9.4-12.4); Monocytes # (auto) 0.86 K/uL (0.11-0.59); Monocytes % (auto) 6.6 %; Neutrophils # (auto) 10.31 K/uL (1.40-6.50); Neutrophils % (auto) 78.7 %; Platelet Count 196 K/uL (130-400); RDW Coefficient of Variation 14.5 % (11.5-14.5); RDW Standard Deviation 49.1 fL (36.4-46.3); Red Blood Count 4.59 M/uL (4.20-5.40)
[2024-08-25 06:08] LABS: Albumin Level 2.5 gm/dl (3.4-5.0); BUN Creatinine Ratio 50.4 (10-20); Bilirubin Direct 0.1 mg/dl (0-0.2); Bilirubin,Total 0.6 mg/dl (0.2-1.0); Calcium 7.8 mg/dl (8.6-10.3); Creatinine Clr Calc Pharmacy 30.4 ml/min; Magnesium 2.1 mg/dl (1.7-2.4); Phosphorus 3.1 mg/dl (2.5-4.9); Potassium 4.3 mmol/L (3.5-5.1); Total Protein 5.8 gm/dl (6.0-8.3)
--- NOTE | 2024-08-25 08:14 | Pharmacy Report ---
Pharmacy PK ABX Note - Date of Service August 25, 2024 - Assessment and Plan 08/24/24 17:59 08/24/24 19:21 08/25/24 01:33 Temperature 39.1 C H 38.1 C H 36.5 C 08/25/24 08:07 Temperature 36.6 C 08/24/24 08/25/24 17:55 05:19 WBC 18.42 H 13.10 H Assessment 84 year old F receiving IV Vancomycin + Zosyn for treatment of UTI & gangrene toe infection. Pertinent microbiologic data includes: Negative MRSA Nasal Swab, blood and urine cultures pending. Day # 2 of antimicrobial therapy. Plan Vancomycin * Loading dose: 1250 mg IV x 1 * Maintenance dose: 1000 mg IV every 24 hours * Regimen is predicted to achieve target AUC/MARÍA of 400-600 mg/L.hr * Random level ordered for 08/27/24 Zosyn 4.5g IV Q8H extended interval infusion for CrCl > 20ml/min Pharmacy will continue to follow and will adjust dose/frequency as necessary. Thank you. Pharmacy has transitioned to AUC monitoring for vancomycin. AUC/MARÍA is the preferred PK/PD target and is associated with decreased risk of nephrotoxicity compared to traditional trough targets.
[2024-08-25] MEDS: SODIUM CHLORIDE 0.45 % 1,000 ML IV SCH (08:29)
[2024-08-25] MEDS: PIPERACILLIN/TAZOBACTAM 4.5 GM/100 ML BAG IV SCH (08:31)
[2024-08-25] MEDS: ASPIRIN 81 MG ECTAB PO SCH (08:32)
[2024-08-25] MEDS: FLUoxetine HCL 20 MG CAP PO SCH (08:32)
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
--- NOTE | 2024-08-25 09:08 | Pharmacy Report ---
Pharmacy Glycemic Short Note 2 - Date of Service August 25, 2024 - Glycemic Short BSG Results (Last 24 hours): 08/24/24 08/24/24 08/24/24 16:58 17:55 23:27 Glucose 369 H* 278 H POC Glucose 358 H* 08/24/24 08/25/24 08/25/24 23:42 02:18 05:19 Glucose 243 H POC Glucose 300 H 277 H 08/25/24 08/25/24 06:20 07:22 Glucose POC Glucose 191 H 83 OUTPATIENT ANTIDIABETIC REGIMEN: * Metformin 1g PO BID * A1c 10.1% 08/21/24 ASSESSMENT: * 84 year old F receiving IV Vancomycin + Zosyn for treatment of UTI & gangrene toe infection. Type 2 DM on metformin alone as outpatient, uncontrolled. * Oral agents are not recommended for inpatient use d/t drug interactions, changing PO intake, and difficulty titrating for acute hyper/hypoglycemia. * Will hold oral agents for admission and utilize SQ basal bolus insulin regimen which is the recommended regimen for inpatient glycemic control. * No basal at this time, patient NPO, latest BSG at goal. PLAN FOR INPATIENT GLYCEMIC CONTROL: * Hold outpatient oral diabetes medications * Basal insulin * None at this time * Bolus insulin * NovoLog per scale ACHS or Q6hrs while NPO * Goal Range: Low 120 mg/dL - High 160 mg/dL - higher range for pt age and A1c * Correction Factor: 25 mg/dL/unit * Nutritional / Prandial insulin per carb ratio of 1 unit per 8 grams CHO consumed
[2024-08-25 09:32] LABS: Estimated Average Glucose 258 mg/dl; Hemoglobin A1C 10.6 % (4.5-5.6)
[2024-08-25] MEDS: VANCOMYCIN HCL 1,000 MG/270 ML BAG IV SCH (09:46)
[2024-08-25] MEDS: traMADol HCL 50 MG TABLET PO PRN (09:50)
--- NOTE | 2024-08-25 09:58 | Ultrasound Report ---
US gallbladder CLINICAL HISTORY: gall stones, sepsis COMPARISON STUDY: CT scan yesterday FINDINGS: Pancreatic tail is obscured. There is mild dilatation of the pancreatic duct. Otherwise the visualized pancreatic body is grossly unremarkable. There are a few areas of increased echogenicity at the liver, largest measuring 4 cm. Liver measures 16 cm. Right kidney shows no hydronephrosis. The re are multiple gallstones measuring up to 1 cm. No gallbladder wall thickening. No pericholecystic f luid or ascites. Common bile duct measures normal diameter of 6 mm. IMPRESSION: 1. Gallstones without evidence of acute cholecystitis. 2. A few scattered areas of increased echogenicity at the liver likely represent areas of fatty liver . If conservative follow-up is preferred, recommend follow-up ultrasound in 6 months to make sure the se findings are stable. If more definitive evaluation is desired, either MRI or CT scan with liver ma ss protocol could be obtained. ACT 112: Positive. There are findings on this exam that require communication between the performing entity and the patient following Patient Test Result Information Act ([place] Act 112) guidelines. Electronically signed by: Alan Yip M.D. 08/25/2024 9:57 AM
[2024-08-25] MEDS: METOPROLOL TARTRATE 25 MG TAB PO SCH (11:41)
[2024-08-25 11:48] LABS: ANTI-Xa, LMWH(Low Molecular Wt 0.38 IU/ML (< 0.10)
[2024-08-25] MEDS: LANTUS PER UNIT CHARGE SC SCH (12:41)
--- NOTE | 2024-08-25 13:07 | Podiatry Consultation ---
Date of Consultation August 25, 2024 Assessment & Plan (1) Non-healing wound of right heel: (2) Diabetic polyneuropathy associated with type 2 diabetes mellitus: (3) Other specified peripheral vascular diseases: (4) Pressure ulcer of right heel, stage 3: Plan patient was examined and evaluated. Called and discussed the case with the patient's daughter. They would like to attempt limb salvage but also avoid surgical intervention. They are concerned about the level of injury to the heel but also not fully grappling how significant her contracture and heel ulceration, in the setting of her vascular disease and neuropathy, are. with her significant vascular disease, should be avoided as it could potentially worsen her infection and ulcerations. Instead, in order for Santyl was placed. Further, she should benefit from seeing vascular surgery or interventional vascular medicine while inpatient. Further, an MRI would better evaluate the level of infection in the heel and specifically identify any evidence of abscess or osteomyelitis. Currently, this seems more pressure related and ischemic than infectious. we will continue to follow her and keep an eye on these right heel ulcerations. I did discuss with her daughter that even without a current significant infection, she is at extreme risk of limb loss given her long- standing contracture of the hip and knee. Orthopedics may be able to assist in seeing this is fixable, as it has only been like this for a year or so, according to her daughter. This would also help decrease pressure to the heel. Thank you for the consult, will forward to helping out with her care long-term. History of Present Illness Reason for Consultation: Right heel ulceration Attending Physician: Mamadou Collier MD History of Present Illness patient seen at bedside. She is a poor historian with her level of cognition. She does state she lives at home in [place]. She denies any known duration of these ulcerations. Her nurse states that her family just left the bedside and is active in participating in her care. They state that she had a prior knee or hip injury that has left her contracted at the knee. This has placed undue pressure on the heel. The family was unaware that she was developing any ulcerations. She was admitted after being unresponsive, essentially, with this heel as a potential source of infection. She does have a history of UTI leading to delirium as well. Allergies Allergy/AdvReac Type Severity Reaction Status Date / Time codeine Allergy Mild SICK Verified 05/26/23 10:18 propoxyphene Allergy Mild SICK Verified 05/26/23 10:18 BEE STING Allergy Severe Anaphylaxis Uncoded 05/26/23 10:18 Home Medications Medication Instructions Recorded Confirmed Type tramadol 50 mg tablet 50 mg PO Q4H PRN Pain 05/26/23 08/24/24 History trazodone 100 mg tablet 100 mg PO HS 05/26/23 08/24/24 History acetaminophen 325 mg tablet 650 mg PO QID PRN Pain 08/24/24 08/24/24 History amoxicillin 250 mg capsule 250 mg PO TID 08/24/24 08/24/24 History aspirin 81 mg chewable tablet 81 mg PO DAILY 08/24/24 08/24/24 History bisacodyl 10 mg rectal suppository 10 mg WV DAILY PRN Constipation 08/24/24 08/24/24 History (Dulcolax (bisacodyl)) epinephrine 0.3 mg/0.3 mL 0.3 mg IM Q4H PRN ALLERGEY 08/24/24 08/24/24 History injection, auto-injector fentanyl 12 mcg/hr transdermal 12 mcg transdermal Q72H PRN Pain 08/24/24 08/24/24 History patch fluoxetine 20 mg capsule 20 mg PO DAILY 08/24/24 08/24/24 History magnesium hydroxide 400 mg/5 mL 30 ml PO DAILY PRN Constipation 08/24/24 08/24/24 History oral suspension (Milk of Magnesia) metformin 1,000 mg tablet 1,000 mg PO BID 08/24/24 08/24/24 History metoprolol tartrate 100 mg tablet 100 mg PO BID 08/24/24 08/24/24 History protein supplement 1 ea PO BID 08/24/24 08/24/24 History sennosides 8.6 mg-docusate sodium 1 tab-cap PO BID PRN Constipation 08/24/24 08/24/24 History 50 mg tablet (Senna with Docusate Sodium) sodium phosphates 19 gram-7 118 ml WV DAILY PRN Constipation 08/24/24 08/24/24 History gram/118 mL enema (Fleet Enema) Patient History Medical History Lumbosacral spondylosis Wheezing Failure of outpatient treatment Flu-like symptoms Atrial flutter with rapid ventricular response CHF (congestive heart failure) Nocturnal hypoxemia Per records COPD (chronic obstructive pulmonary disease) Per records Osteoarthritis History of kidney stones GERD (gastroesophageal reflux disease) Hyperlipidemia Surgical History S/P angioplasty with stent History of cystoscopy History of colonoscopy History of hysterectomy History of repair of rotator cuff RT History of tooth extraction History of tonsillectomy and adenoidectomy History of cataract surgery RT/LEFT History of heart artery stent 1 STENT PLACED to D1 in 2011 Family History Son Family history of diabetes mellitus Other No family history of adverse response to anesthesia Social History Smoking Status: Never smoker Tobacco Type: Cigarettes Cigarettes Per Day: 20 PER DAY; Second Hand Exposure: No; Do You Dip or Chew Tobacco: No; Hx Alcohol Use: No Hx Substance Use: No Preferred Language: Italian Communication Ability: Impaired Pm Technician Required: No Beliefs That Will Affect Care: None Current Living Situation: Prison Current Living Situation Comment: [facility] Feels Safe at Home: Yes Safety Concerns: Feels Safe At This Time Assistive Devices: Denture - Upper and Wheelchair Review of Systems Review of Systems: Unobtainable due to cognitive status Constitutional: no fever, no chills and no fatigue Eyes: no problem reported Ear, Nose, Mouth, Throat: no problem reported Respiratory: no problem reported Cardiovascular: + edema; no problem reported Gastrointestinal: no nausea, no vomiting and no problem reported Genitourinary: no problem reported Musculoskeletal: no problem reported Integumentary: + skin ulcer, + wounds and + erythema Neurologic: + loss of sensation, + numbness and + pa resthesia; no generalized weakness Psychiatric: no problem reported Physical Exam Physical Exam: DP/PT pulses nonpalpable. CFT is brisk to the digits. No acute gangrenous changes noted to the forefoot or this plantar heel. There are 2 distinct ulcerations or pressure injuries to the right plantar heel. There is a dry stable eschar on the lateral aspect of the calcaneus and a more deep tissue injury acute seeming ulceration without open lesion to the medial aspect of the calcaneus. No active bleeding or drainage is noted on clinical exam. Advanced trophic changes are noted to the lower extremity with thinning of the skin, cooling, and nail changes with hair loss overall. The knee is significant contracted and not flexible, placing drastic increase in pressure on the plantar aspect of the calcaneus. noninvasive vascular testing reveals monophasic flow superficial femoral block to the lower extremity. Constitutional: WD/WN, vitals as above + ill appearing, average body habitus and + thin Eyes: PERRL, conjunctivae normal, anicteric sclerae ENMT: external ear and nose normal, oropharynx normal Mouth: + poor dentition Neck: trachea midline, no thyromegaly normal visual inspection Respiratory: normal respiratory effort; no respiratory distress Cardiovascular: Rate/Rhythm: regular rate and regular rhythm Vessels: + posterior tibial pulses abnormal and + dorsalis pedis pulses abnormal Ext remities: normal capillary refill; no pedal edema Chest (Breasts): Chest: normal inspection of chest Gastrointestinal (Abdomen): Inspection/Auscultation: abdomen normal to inspection Percussion/Palpation: + abdomen tender and abdomen soft Musculoskeletal: no cyanosis or clubbing, extremities motor strength 5/5 Head/Neck/Chest: normocephalic and head atraumatic Extremities: extremities normal to inspection and + limited ROM of extremities Hip: + deformity, + limited ROM of hip and + hip ROM with crepitation Knee: + limited ROM of knee and + knee ROM with crepitation Skin: + lesion, + ulcer, + dry skin and + esch ar; no erythema Neurologic: awake; no focal motor deficits Psychiatric: Orientation: alert and + guarded; + not oriented to place and + not oriented to time Insight: + limited insight Judgment: + limited judgement Results & Data Vital Signs (Past 12 Hours) Vital Signs Temp Pulse Pulse Resp BP Pulse Ox O2 Del Method 08/25/24 11:07 130 H 08/25/24 11:00 36.8 C 100 H 16 110/80 98 Nasal Cannula 08/25/24 08:07 36.6 C 119 H 18 108/70 97 Nasal Cannula 08/25/24 03:29 128 H 08/25/24 01:33 36.5 C 127 H 20 115/84 96 Nasal Cannula 08/25/24 01:32 Nasal Cannula O2 Flow Rate 08/25/24 11:07 08/25/24 11:00 2 08/25/24 08:07 2 08/25/24 03:29 08/25/24 01:33 2 08/25/24 01:32 2
[2024-08-25] MEDS: ATORVASTATIN 40 MG TAB PO SCH (13:52)
[2024-08-25] MEDS: COLLAGENASE OINT 30 GM TUBE EXT SCH (15:03)
[2024-08-25] MEDS: fentaNYL 12 MCG/HR TDSY TD SCH (15:03)
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
[2024-08-25] MEDS: CHECK fentaNYL PATCH PLACEMENT SCH (15:10)
[2024-08-26 07:20] LABS: Basophils # (auto) 0.04 K/uL (0.00-0.20); Basophils % (auto) 0.4 %; Eosinophils # (auto) 0.19 K/uL (0.00-0.50); Eosinophils % (auto) 1.7 %; Hematocrit (blood only) 41.1 % (37.0-47.0); Hemoglobin 13.1 g/dl (12.0-16.0); Immature Granulocytes # (auto) 0.12 K/uL (0.01-0.20); Immature Granulocytes % (auto) 1.1 %; Lymphocytes # (auto) 1.71 K/uL (1.20-3.40); Lymphocytes % (auto) 15.1 %; Mean Corpuscular Hemoglobin 28.7 pg (25.0-34.0); Mean Corpuscular Hgb Conc 31.9 g/dL (32.0-36.0); Mean Corpuscular Volume 89.9 fL (80.0-100.0); Mean Platelet Volume 11.2 fL (9.4-12.4); Monocytes # (auto) 0.71 K/uL (0.11-0.59); Monocytes % (auto) 6.3 %; Neutrophils # (auto) 8.58 K/uL (1.40-6.50); Neutrophils % (auto) 75.4 %; Platelet Count 180 K/uL (130-400); RDW Coefficient of Variation 13.9 % (11.5-14.5); RDW Standard Deviation 46.3 fL (36.4-46.3); Red Blood Count 4.57 M/uL (4.20-5.40); White Blood Count 11.35 K/ul (4.8-10.8)
[2024-08-26 07:21] LABS: BUN Creatinine Ratio 25.9 (10-20); Calcium 7.8 mg/dl (8.6-10.3); Creatinine Clr Calc Pharmacy 46.7 ml/min; Potassium 4.2 mmol/L (3.5-5.1)
--- NOTE | 2024-08-26 07:39 | Pharmacy Report ---
Pharmacy Glycemic Short Note 2 - Date of Service August 26, 2024 - Glycemic Short BSG Results (Last 24 hours): 08/25/24 08/25/24 08/25/24 11:42 16:28 20:57 Glucose POC Glucose 202 H 110 H 119 H 08/26/24 08/26/24 08/26/24 02:56 06:33 07:18 Glucose 110 H POC Glucose 128 H 79 OUTPATIENT ANTIDIABETIC REGIMEN: * Metformin 1g PO BID * A1c 10.1% 08/21/24 ASSESSMENT: 08/26 * Blood sugars looking great on 12 units of Lantus, [id number]/dl. Will decrease slightly to prevent hypoglycemia, and continue patient on basal as patient was uncontrolled on admission without the basal insulin. * No carb intake reported, so no CR used at this time, RN reports that family will sometimes feed patient, and she is taking pills in applesauce. Pureed diet. * Continue current insulin orders. 08/25 * 84 year old F receiving IV Vancomycin + Zosyn for treatment of UTI & gangrene toe infection. Type 2 DM on metformin alone as outpatient, uncontrolled. * Oral agents are not recommended for inpatient use d/t drug interactions, changing PO intake, and difficulty titrating for acute hyper/hypoglycemia. * Will hold oral agents for admission and utilize SQ basal bolus insulin regimen which is the recommended regimen for inpatient glycemic control. * No basal at this time, patient NPO, latest BSG at goal. PLAN FOR INPATIENT GLYCEMIC CONTROL: * Hold outpatient oral diabetes medications * Basal insulin * Lantus 10 units daily * Bolus insulin * NovoLog per scale ACHS or Q6hrs while NPO * Goal Range: Low 120 mg/dL - High 160 mg/dL - higher range for pt age and A1c * Correction Factor: 25 mg/dL/unit * Nutritional / Prandial insulin per carb ratio of 1 unit per 8 grams CHO consumed
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
--- NOTE | 2024-08-26 08:54 | CT Scan Report ---
CT ankle RT wo con CLINICAL HISTORY: rule out OM/abscess, MRI couldn't be done COMPARISON STUDY: Right ankle and right foot radiographs June 26, 2023. TECHNIQUE: Axial images of the right ankle were obtained without IV contrast. Sagittal and coronal re formats were viewed. Automated exposure control was utilized for the study. A dose lowering techniqu e was utilized adhering to the principles of ALARA. FINDINGS: Alignment of the right ankle is anatomic. There are no fractures within the right ankle. No areas of bony erosion are present. A few well-corticated ossicles along the medial malleolus are chr onic. Talar dome is intact. There are no suspicious osseous lesions. There is no soft tissue gas with in the right ankle. Subcutaneous edema and skin thickening of the posterior right ankle suggests cell ulitis. No fluid collection is identified on unenhanced exam. There is a small posterior calcaneal sp ur. IMPRESSION: 1. No evidence for osteomyelitis within the right ankle. 2. Posterior right ankle soft tissue swelling suggestive of cellulitis. No fluid collection to sugges t abscess. ACT 112: Negative or not required by law. Electronically signed by: Pravin Arnold M.D. 08/26/2024 8:51 AM
[2024-08-26 08:59] LABS: Troponin I High Sensitivity 1141.8 pg/ml (0-14)
[2024-08-26] MEDS: METOPROLOL TARTRATE 50 MG TAB PO SCH (09:35)
[2024-08-26] MEDS: LANTUS PER UNIT CHARGE SC SCH (09:36)
--- NOTE | 2024-08-26 11:02 | Consultation ---
Date of Consultation August 26, 2024 Assessment & Plan (1) Peripheral arterial disease: Pt with PAD and R heel ulceration, likely pressure related from severe contractures. Pt discussed at length with Dr Daugherty. Angiography with intervention not possible d/t severe R hip and knee contractures. Open surgery also not recommended d/t contractures and nonfunctional limb, in addition to her significant comorbidities. Dr Daugherty will call pt's daughter tomorrow to discuss. Discussed this with her daughter. Due to the contractures she is not a candidate for endovascular or open surgical procedures on the leg. Would need to treat the wound conservatively. If it worsens then she will require an amputation. History of Present Illness Reason for Consultation: PAD Attending Physician: Mamadou Collier MD History of Present Illness 84 yo F with hx of HTN, NSTEMI, CHF, a fib RVR, CAD, CKD III, neuropathy, DMII, GI bleed, admitted with sepsis d/t RLE heel wound, seen in consultation today for PAD. Pt unable to provide any meaningful hx. Admits pain in BLE, worse in RLE. Per chart, pt with RLE heel wound d/t severe contracture of RLE. RLE US demonstrates monophasic flow from mid SFA to foot. Allergies Allergy/AdvReac Type Severity Reaction Status Date / Time codeine Allergy Mild SICK Verified 05/26/23 10:18 propoxyphene Allergy Mild SICK Verified 05/26/23 10:18 BEE STING Allergy Severe Anaphylaxis Uncoded 05/26/23 10:18 Home Medications Medication Instructions Recorded Confirmed Type tramadol 50 mg tablet 50 mg PO Q4H PRN Pain 05/26/23 08/24/24 History trazodone 100 mg tablet 100 mg PO HS 05/26/23 08/24/24 History acetaminophen 325 mg tablet 650 mg PO QID PRN Pain 08/24/24 08/24/24 History amoxicillin 250 mg capsule 250 mg PO TID 08/24/24 08/24/24 History aspirin 81 mg chewable tablet 81 mg PO DAILY 08/24/24 08/24/24 History bisacodyl 10 mg rectal suppository 10 mg RI DAILY PRN Constipation 08/24/24 08/24/24 History (Dulcolax (bisacodyl)) epinephrine 0.3 mg/0.3 mL 0.3 mg IM Q4H PRN ALLERGEY 08/24/24 08/24/24 History injection, auto-injector fentanyl 12 mcg/hr transdermal 12 mcg transdermal Q72H PRN Pain 08/24/24 08/24/24 History patch fluoxetine 20 mg capsule 20 mg PO DAILY 08/24/24 08/24/24 History magnesium hydroxide 400 mg/5 mL 30 ml PO DAILY PRN Constipation 08/24/24 08/24/24 History oral suspension (Milk of Magnesia) metformin 1,000 mg tablet 1,000 mg PO BID 08/24/24 08/24/24 History metoprolol tartrate 100 mg tablet 100 mg PO BID 08/24/24 08/24/24 History protein supplement 1 ea PO BID 08/24/24 08/24/24 History sennosides 8.6 mg-docusate sodium 1 tab-cap PO BID PRN Constipation 08/24/24 08/24/24 History 50 mg tablet (Senna with Docusate Sodium) sodium phosphates 19 gram-7 118 ml RI DAILY PRN Constipation 08/24/24 08/24/24 History gram/118 mL enema (Fleet Enema) Patient History Medical History Lumbosacral spondylosis Wheezing Failure of outpatient treatment Flu-like symptoms Atrial flutter with rapid ventricular response CHF (congestive heart failure) Nocturnal hypoxemia Per records COPD (chronic obstructive pulmonary disease) Per records Osteoarthritis History of kidney stones GERD (gastroesophageal reflux disease) Hyperlipidemia Surgical History S/P angioplasty with stent History of cystoscopy History of colonoscopy History of hysterectomy History of repair of rotator cuff RT History of tooth extraction History of tonsillectomy and adenoidectomy History of cataract surgery RT/LEFT History of heart artery stent 1 STENT PLACED to D1 in 2011 Family History Son Family history of diabetes mellitus Other No family history of adverse response to anesthesia Social History Smoking Status: Never smoker Tobacco Type: Cigarettes Cigarettes Per Day: 20 PER DAY; Second Hand Exposure: No; Do You Dip or Chew Tobacco: No; Hx Alcohol Use: No Hx Substance Use: No Preferred Language: Luxembourgish Communication Ability: Impaired Engine Oiler Required: No Beliefs That Will Affect Care: None Current Living Situation: [facility] Current Living Situation Comment: [facility] Feels Safe at Home: Yes Safety Concerns: Feels Safe At This Time Assistive Devices: Denture - Upper and Wheelchair Review of Systems Review of Systems: Unobtainable due to cognitive status Physical Exam Constitutional: + ill appearing (chronically) and + obes e; + uncooperative, + uncomfortable and not in distress Neck: trachea midline Respiratory: Auscultation: + diminished lung sounds and + rales Cardiovascular: Rate/Rhythm: + tachycardic and + irregularly irregular Vessels: femoral pulses present (LLE +2, unable to eval RLE), posterior tibial pulses present (LLE good doppler, RLE no doppler) and dorsalis pedis pulses present (LLE good doppler, RLE faint doppler); + abnormal peripheral pulses Extremities: normal capillary refill and + edema Gastrointestinal (Abdomen): Inspection/Auscultation: abdomen normal to inspection and normal bowel sounds Percussion/Palpation: abdomen soft; abdomen nontender Musculoskeletal: RLE severely contracted at hip and knee, also partially externally rotated. Skin: R heel wound dressing in place. Neurologic: awake and + confused (unable to answer questions) Psychiatric: Orientation: alert and oriented to person; + not oriented to place and + not oriented to time Eye Contact: + poor eye contact Results & Data Vital Signs (Past 12 Hours) Vital Signs Temp Pulse Resp BP Pulse Ox O2 Del Method O2 Flow Rate 08/26/24 08:00 139 H 20 152/61 H 97 Nasal Cannula 2 08/26/24 02:52 36.9 C 130 H 22 135/88 98 Nasal Cannula 2
--- NOTE | 2024-08-26 13:16 | Cardiology Progress Note ---
Date of Service August 26, 2024 Assessment & Plan (1) Severe sepsis: (2) Elevated troponin: (3) Atrial fibrillation with rapid ventricular response: (4) NSTEMI (non-ST elevated myocardial infarction): Plan 08/25/24 Patient admitted with altered mental status/lethargy secondary to sepsis secondary to UTI and LE wounds. NSTEMI noted on admission consistent with type II demand ischemic event in setting of acute illness. Continue 48 hours of IV heparin. Currently no symptoms to suggest angina. Echo with preserved LVEF and small apical wall motion abnormality. EF 55% Recommend conservative medical therapies for presumed ischemic heart disease. Continue ASA. Add statin - atorvastatin Resume beta laureano now that BP has improved - will resume lower dose metoprolol and increase as needed/tolerated. Prior home dose was metoprolol tartrate 100 mg BID. Start metoprolol 25 mg BID for now. Once she is tolerating beta laureano, will transition to Toprol. continue current treatment for sepsis, UTI and wound evaluation. Antibiotics per hospitalist. It appears she has severe PVD of the LE per duplex. Continue ASA and add statin. consider vascular evaluation 08/26/24: Admitted with sepsis, diagnosed with NSTEMI demand Type II event in setting of acute illness and afib RVR with non compliance with oral metoprolol at home No anginal complaints. Continue IV heparin for total of 48 hours. Continue ASA. Statin added yesterday BP improved from admission, metoprolol being titrated for chronic afib. Transition to oral metoprolol succinate 50 mg BID. Continue to titrate as needed/tolerated. If BP trends lower with metoprolol titration, consider adding digoxin. Patient previously deemed high risk for anticoagulation therapy due to frequent falls. Now that patient is primarily bed bound due to contractures, could reconsider anticoagulation with Eliquis to aid her afib and PVD Continue treatment for sepsis/LE wounds per hospitalist. Vascular evaluated for significant PVD. Med management recommended. Case discussed with Dr. Rcih. I spent a total of 30 minutes on the date of service in preparation, delivery, and documentation of the care provided to this patient, excluding any time spent in the performance of separately billed services. Geeta Silvestre PA-C Department of Cardiology, [facility] This chart was completed in part utilizing Speech Voice Recognition Software. Grammatical errors, random word insertions, pronoun errors, and incomplete sentences are an occasional consequence of this system due to software limitations, ambient noise, and hardware issues. Any formal questions or concerns about the content, text, or information contained within the body of this dictation should be directly addressed to the provider for clarification. Admission and Anticipated Discharge Date Admission Date: August 24, 2024 Supervising Physician Co-Signing Physician Notes I have personally performed a history and physical examination on the patient. I have reviewed the advance practitioner's documentation, and I agree with, and take responsibility for the plan of care. 84-year-old female admitted secondary to change in mental status, lethargy. Diagnosed with sepsis secondary to urinary tract infection and lower extremity wounds. Elevated troponin on admission in setting of atrial fibrillation with rapid ventricular response. Echocardiogram with small apical wall motion abnormality, otherwise, preserved LV systolic function with severe mitral regurgitation which appears chronic. No evidence of volume overload. Poor historian due to underlying dementia. Denies anginal symptoms. Heart rate improved with beta-laureano therapy, however, remains elevated. Recommendation: * Conservative medical management. * Continue IV heparin for total of 48 hours. * If patient primarily bedbound, reconsider long-term anticoagulation with Eliquis * Add statin therapy. * Continue aspirin and statin. * Titrate metoprolol to 50 mg twice daily (outpatient dose 100 mg twice daily) titrate as needed to improve rate control * Treatment of sepsis/antibiotics as per hospitalist Abhijeet Rich DO, [facility] I spent a total of 25 minutes on the date of service in preparation, delivery, and documentation of the care provided to this patient, excluding any time spent in the performance of separately billed services. Subjective Patient sleeping in bed. Comfortable. Awakens to voice but does not remain awake to converse. Review of systems not able to be performed. Review of Systems Review of Systems: Unobtainable due to cognitive status Physical Exam Constitutional: + frail appearing; no acute distress Neck: trachea midline, no thyromegaly Respiratory: no labored breathing Auscultation: + diminished lung sounds; no crackles and no rales Cardiovascular: Rate/Rhythm: + tachycardic and + irregularly irregular Heart Sounds: + murmur (II/ systolic murmur) Vessels: no JVD Extremities: no edema Gastrointestinal (Abdomen): normal bowel sounds, soft, nontender, no hepatosplenomegaly Neurologic: PERRL, EOMI, accommodation nl, no face palsy, no dysarthria Results & Data Vital Signs (Past 12 Hours) Vital Signs Temp Pulse Pulse Resp BP Pulse Ox O2 Del Method 08/26/24 11:47 36.8 C 109 H 18 108/68 91 Room Air 08/26/24 08:00 139 H 20 152/61 H 97 Nasal Cannula 08/26/24 07:00 124 H 08/26/24 02:52 36.9 C 130 H 22 135/88 98 Nasal Cannula O2 Flow Rate 08/26/24 11:47 08/26/24 08:00 2 08/26/24 07:00 08/26/24 02:52 2 Laboratory Results Cardiac Enzymes 08/25/24 08/25/24 08/26/24 Range/Units 12:29 17:52 06:33 Troponin I High Sens 910.2 H* D 1326.5 H* D 1141.8 H* (0-14) pg/ml CBC 08/26/24 Range/Units 06:33 WBC 11.35 H (4.8-10.8) K/ul RBC 4.57 (4.20-5.40) M/uL Hgb 13.1 (12.0-16.0) g/dl Hct 41.1 (37.0-47.0) % Plt Count 180 (130-400) K/uL Neut # (Auto) 8.58 H (1.40-6.50) K/uL Lymph # (Auto) 1.71 (1.20-3.40) K/uL [place] # (Auto) 0.71 H (0.11-0.59) K/uL Eos # (Auto) 0.19 (0.00-0.50) K/uL Baso # (Auto) 0.04 (0.00-0.20) K/uL Comprehensive Metabolic Panel 08/26/24 Range/Units 06:33 Sodium 142 (136-145) mmol/L Potassium 4.2 (3.5-5.1) mmol/L Chloride 115 H (98-107) mmol/L Carbon Dioxide 23 (21-32) mmol/L BUN 22 D (6-23) mg/dl Creatinine 0.85 D (0.6-1.2) mg/dl Glucose 110 H (70-99(Fasting)) mg/dl Calcium 7.8 L (8.6-10.3) mg/dl Intake and Output 08/25/24 08/26/24 08/26/24 22:59 06:59 14:59 Intake Total 960 / 1731.300 100 / 3909.635 6898.133 / 1534.133 Output Total 550 / 2150 400 / 2150 Balance 410 / -418.700 -300 / -249.362 4514.133 / 1534.133 Intake: IV 960 / 1731.300 100 / 5070.768 5113.133 / 1534.133 Heparin 96592 Unit/500 ml D5w 264.133 / 264.133 25,000 units In 500 ml @ 700 UNITS/HR 14 mls/hr IV .Q24H [facility] Rx#:[id number] Piperacillin/Tazobactam 4.5 gm 100 / 300 100 / 300 In 100 ml @ 25 mls/hr IV Q8H [facility] Rx#:[id number] Sodium Chloride 0.45 % 1,000 ml 860 / 860 1000 / 1000 @ 80 mls/hr IV .[id number] [facility] Rx #:[id number] Vancomycin HCl 1,000 mg In 270 270 / 270 ml @ 200 mls/hr IV Q24H [facility] Rx# :[id number] Output: Urine Amount (Catheter) 550 / 2150 400 / 2150 Lang/Indwelling 550 / 2150 400 / 2150 Other: Weight 66.2 kg Weight Measurement Method Built in [facility] Diagnostic Findings Telemetry reviewed: Persistent atrial fibrillation with elevated rates around 120 BMP Medications Administered Current Inpatient Medications Aspirin (Aspirin 81 Mg Ectab) 81 mg PO DAILY [facility] Stop: 09/24/24 08:59 Last Admin: 08/26/24 09:34 Dose: 81 mg Atorvastatin Calcium (Atorvastatin 40 Mg Tab) 40 mg PO QAM [facility] Stop: 09/24/24 12:14 Last Admin: 08/26/24 09:34 Dose: 40 mg Bisacodyl (Bisacodyl 10 Mg Supp) 10 mg WA DAILY PRN PRN Reason: Constipation Stop: 09/24/24 01:31 Collagenase (Collagenase Oint 30 Gm Tube) 1 appln EXT DAILY [facility] Stop: 09/24/24 13:59 Last Admin: 08/26/24 09:36 Dose: 1 appln Dextrose (Dextrose 50% 50 Ml Syringe) 25 - 50 ml IV UD PRN; Protocol PRN Reason: Hypoglycemia Protocol Stop: 09/24/24 01:31 Epinephrine HCl (Epinephrine Inj 1 Mg/Ml Amp) 0.3 mg IM Q4H PRN PRN Reason: Allergic Reaction Stop: 09/24/24 01:58 Fentanyl (Fentanyl 12 Mcg/Hr Tdsy) 1 patch TD Q3D [facility] Stop: 09/08/24 14:14 Last Admin: 08/25/24 15:03 Dose: 1 patch Fluoxetine HCl (Fluoxetine Hcl 20 Mg Cap) 20 mg PO DAILY [facility] Stop: 09/24/24 08:59 Last Admin: 08/26/24 09:35 Dose: 20 mg Glucagon (Glucagon For Inj 1 Mg Vial) 1 mg SQ UD PRN; Protocol PRN Reason: Hypoglycemia Protocol Stop: 09/24/24 01:31 Glucose (Glucose 40% Gel 15 Gm Tube) 15 - 30 gm PO UD PRN; Protocol PRN Reason: Hypoglycemia Protocol Stop: 09/24/24 01:31 Glucose (Glucose 10 Tab/Tube) 4 - 8 tab PO UD PRN; Protocol PRN Reason: Hypoglycemia Protocol Stop: 09/24/24 01:31 Piperacillin Sod/Tazobactam Sod (Zosyn) 4.5 gm in 100 mls @ 25 mls/hr IV Q8H [facility]; Protocol Stop: 09/04/24 07:59 Last Admin: 08/26/24 09:41 Dose: 25 mls/hr Heparin Sodium/Dextrose (Heparin 87007 Unit/500 Ml D5w) 25,000 units in 500 mls @ 14 mls/hr IV .Q24H [facility]; Protocol Stop: 08/27/24 02:59 Last Titration: 08/26/24 08:09 Dose: 700 units/hr, 14 mls/hr Acetaminophen (Ofirmev) 1,000 mg in 100 mls @ 400 mls/hr IV Q8H PRN PRN Reason: Pain or Fever Stop: 08/28/24 01:36 Last Infusion: 08/25/24 02:45 Dose: Infused Vancomycin HCl (Vancomycin Hcl) 1,000 mg in 270 mls @ 200 mls/hr IV Q24H [facility] Stop: 09/01/24 08:59 Last Infusion: 08/26/24 11:44 Dose: Infused Insulin Aspart (Insulin Aspart Per Unit Charge) 0 units SC ACHS [facility] Stop: 09/24/24 11:59 Last Admin: 08/26/24 12:11 Dose: Not Given Insulin Glargine (Lantus Per Unit Charge) 10 units SC DAILY [facility] Stop: 09/25/24 08:59 Last Admin: 08/26/24 09:36 Dose: 10 units Levalbuterol HCl (Levalbuterol Hcl 0.63 Mg/3 Ml Neb) 0.63 mg NEB Q4H PRN; Protocol PRN Reason: Shortness Of Breath Or Wheezing Stop: 09/24/24 05:14 Metoprolol Succinate (Metoprolol Succ 50mg Ext Rel Tab) 50 mg PO BID [facility] Stop: 09/25/24 20:59 Miscellaneous (Carbohydrates For Hypoglycemia ) 15 - 30 gm PO UD PRN PRN Reason: Hypoglycemia Protocol Stop: 09/24/24 01:31 Miscellaneous (Fentanyl Patch Remove & Waste) 1 each N/A Q3D [facility] Stop: 09/24/24 14:14 Last Admin: 08/25/24 15:03 Dose: 1 each Miscellaneous (Check Fentanyl Patch Placement) 1 each N/A QS [facility] Stop: 09/24/24 15:59 Last Admin: 08/26/24 10:12 Dose: 1 each Miscellaneous Information (Vancomycin Consult Active) 1 each N/A UD PRN PRN Reason: Consult Stop: 09/23/24 18:47 Miscellaneous Information (Pharmacy Glycemic Mgmt Consult) 1 each N/A UD PRN PRN Reason: Consult Stop: 09/24/24 01:31 Tramadol HCl (Tramadol Hcl 50 Mg Tablet) 25 mg PO Q6H PRN PRN Reason: Severe Pain (Scale 7, 8, 9,10) Stop: 09/24/24 06:47 Last Admin: 08/26/24 09:35 Dose: 25 mg
--- NOTE | 2024-08-26 16:02 | Podiatry Progress Note ---
Date of Service August 26, 2024 Assessment & Plan (1) Non-healing wound of right heel: (2) Diabetic polyneuropathy associated with type 2 diabetes mellitus: (3) Other specified peripheral vascular diseases: (4) Pressure ulcer of right heel, stage 3: Plan Patient was examined and evaluated. - Continue offloading the right heel and with Santyl to the heel ulceration. - There is still no evidence of significant infection to the heel and this can be treated on an outpatient basis, if she remains stable, otherwise - Patient and her family should consider long-term outcomes associate with this calcaneal ulceration as well as her significant contractures. These may lead to continued hospitalizations if she is unable to reduce pressure to the heel. - Will follow. Admission and Anticipated Discharge Date Admission Date: August 24, 2024 Subjective Patient seen at bedside at lunchtime. She is arousable but resting comfortably otherwise. Knee and hip remain contracted. Pressure still on the heel while resting in bed. Review of Systems Review of Systems: Unobtainable due to cognitive status and Unobtainable due to reduced consciousness Physical Exam Physical Exam: DP/PT pulses nonpalpable. CFT is brisk to the digits. No acute gangrenous changes noted to the forefoot or this plantar heel. There are 2 distinct ulcerations or pressure injuries to the right plantar heel. There is a dry stable eschar on the lateral aspect of the calcaneus and a more deep tissue injury acute seeming ulceration without open lesion to the medial aspect of the calcaneus. No active bleeding or drainage is noted on clinical exam. Advanced trophic changes are noted to the lower extremity with thinning of the skin, cooling, and nail changes with hair loss overall. The knee is significant contracted and not flexible, placing drastic increase in pressure on the plantar aspect of the calcaneus. noninvasive vascular testing reveals monophasic flow superficial femoral block to the lower extremity. Constitutional: WD/WN, vitals as above + ill appearing, average body habitus and + thin Eyes: PERRL, conjunctivae normal, anicteric sclerae ENMT: external ear and nose normal, oropharynx normal Mouth: + poor dentition Neck: trachea midline, no thyromegaly normal visual inspection Respiratory: normal respiratory effort; no respiratory distress Cardiovascular: Rate/Rhythm: regular rate and regular rhythm Vessels: + posterior tibial pulses abnormal and + dorsalis pedis pulses abnormal Extremi ties: normal capillary refill; no pedal edema Chest (Breasts): Chest: normal inspection of chest Gastrointestinal (Abdomen): Inspection/Auscultation: abdomen normal to inspection Percussion/Palpation: + abdomen tender and abdomen soft Musculoskeletal: no cyanosis or clubbing, extremities motor strength 5/5 Head/Neck/Chest: normocephalic and head atraumatic Extremities: extremities normal to inspection and + limited ROM of extremities Hip: + deformity, + limited ROM of hip and + hip ROM with crepitation Knee: + limited ROM of knee and + knee ROM with crepitation Skin: + lesion, + ulcer, + dry skin and + esch ar; no erythema Neurologic: awake; no focal motor deficits Psychiatric: A+Ox3, euthymic affect Orientation: alert and + guarded; + not oriented to place and + not oriented to time Insight: + limited insight Judgment: + limited judgement Results & Data Results & Data Vital Signs (Past 12 Hours) Vital Signs Temp Pulse Pulse Resp BP Pulse Ox O2 Del Method 08/26/24 14:05 104 H 08/26/24 11:47 36.8 C 109 H 18 108/68 91 Room Air 08/26/24 08:00 139 H 20 152/61 H 97 Nasal Cannula 08/26/24 07:00 124 H O2 Flow Rate 08/26/24 14:05 08/26/24 11:47 08/26/24 08:00 2 08/26/24 07:00
[2024-08-26] MEDS: METOPROLOL SUCC 50MG EXT REL TAB PO SCH (20:59)
[2024-08-27 05:57] LABS: Basophils # (auto) 0.02 K/uL (0.00-0.20); Basophils % (auto) 0.2 %; Eosinophils # (auto) 0.16 K/uL (0.00-0.50); Eosinophils % (auto) 1.7 %; Hematocrit (blood only) 38.7 % (37.0-47.0); Hemoglobin 12.9 g/dl (12.0-16.0); Immature Granulocytes # (auto) 0.06 K/uL (0.01-0.20); Immature Granulocytes % (auto) 0.7 %; Lymphocytes # (auto) 1.46 K/uL (1.20-3.40); Lymphocytes % (auto) 15.8 %; Mean Corpuscular Hemoglobin 29.4 pg (25.0-34.0); Mean Corpuscular Hgb Conc 33.3 g/dL (32.0-36.0); Mean Corpuscular Volume 88.2 fL (80.0-100.0); Mean Platelet Volume 10.7 fL (9.4-12.4); Monocytes # (auto) 0.53 K/uL (0.11-0.59); Monocytes % (auto) 5.7 %; Neutrophils # (auto) 6.99 K/uL (1.40-6.50); Neutrophils % (auto) 75.9 %; Platelet Count 214 K/uL (130-400); RDW Coefficient of Variation 13.4 % (11.5-14.5); RDW Standard Deviation 43.8 fL (36.4-46.3); Red Blood Count 4.39 M/uL (4.20-5.40); White Blood Count 9.22 K/ul (4.8-10.8)
[2024-08-27 06:15] LABS: BUN Creatinine Ratio 14.6 (10-20); Calcium 7.8 mg/dl (8.6-10.3); Creatinine Clr Calc Pharmacy 48.6 ml/min; Potassium 3.6 mmol/L (3.5-5.1)
--- NOTE | 2024-08-27 08:42 | Pharmacy Report ---
Pharmacy Glycemic Short Note 2 - Date of Service August 27, 2024 - Glycemic Short BSG Results (Last 24 hours): 08/26/24 08/26/24 08/26/24 11:06 16:29 20:31 Glucose POC Glucose 74 108 H 85 08/27/24 08/27/24 05:25 07:22 Glucose 79 POC Glucose 87 OUTPATIENT ANTIDIABETIC REGIMEN: * Metformin 1g PO BID HbA1c: 10.1% (08/21/24) ASSESSMENT: 08/27/24: * As previously noted, blood sugar trend has been overall lower than earlier this admission * Fasting blood sugar of 87 mg/dL this morning * Given patient's age and labile blood sugars with multiple recent blood sugars below 100 mg/dL, priority will be to minimize risk of hypoglycemia / * Blood sugars looking great on 12 units of Lantus, [phone]/dl. Will decrease slightly to prevent hypoglycemia, and continue patient on basal as patient was uncontrolled on admission without the basal insulin. * No carb intake reported, so no CR used at this time, RN reports that family will sometimes feed patient, and she is taking pills in applesauce. Pureed diet. * Continue current insulin orders. 08/25 * 84 year old F receiving IV Vancomycin + Zosyn for treatment of UTI & gangrene toe infection. Type 2 DM on metformin alone as outpatient, uncontrolled. * Oral agents are not recommended for inpatient use d/t drug interactions, changing PO intake, and difficulty titrating for acute hyper/hypoglycemia. * Will hold oral agents for admission and utilize SQ basal bolus insulin regimen which is the recommended regimen for inpatient glycemic control. * No basal at this time, patient NPO, latest BSG at goal. PLAN FOR INPATIENT GLYCEMIC CONTROL: * Hold outpatient oral diabetes medications * Basal insulin * hold * Bolus insulin * NovoLog per scale ACHS or Q6hrs while NPO * Goal Range: Low 120 mg/dL - High 160 mg/dL - higher range for pt age and A1c * Correction Factor: 35 mg/dL/unit * Nutritional / Prandial insulin per carb ratio of 1 unit per 12 grams CHO consumed
[2024-08-27] MEDS: VANCOMYCIN HCL 1,000 MG/270 ML BAG IV SCH (09:42)
--- NOTE | 2024-08-27 11:03 | Pharmacy Report ---
Pharmacy PK ABX Note - Date of Service August 27, 2024 - Assessment and Plan 08/24/24 17:59 08/24/24 19:21 08/25/24 01:33 Temperature 39.1 C H 38.1 C H 36.5 C 08/25/24 08:07 Temperature 36.6 C 08/24/24 08/25/24 17:55 05:19 WBC 18.42 H 13.10 H Assessment * 84 year old F receiving IV Vancomycin + Zosyn for treatment of sepsis possibly secondary to UTI/gangrene toe infection. * Pertinent microbiologic data includes: Negative MRSA Nasal Swab, blood cultures x 2 show no growth at 48 hours, urine culture - multiple organisms present (no further ID/sensitivity to follow) * Podiatry consulted, no evidence of infection of the heel * Patient has been afebrile > 48 hours, leukocytosis improving, renal function improved and seems to be at baseline * Day # 4 of antimicrobial therapy. Plan Vancomycin * Current regimen: 1000 mg IV every 24 hours * Random level obtained 08/27/24 resulted as 9.7 mcg/mL. This is not predicted to achieve target AUC/MARÍA of 400-600 mg/L.hr * Change to 1000 mg IV every 18 hours * Predicted AUC at steady state: 508 mg/L.hr * Repeat random level ordered for: 08/29/24 Zosyn 4.5g IV Q8H extended interval infusion for CrCl > 20ml/min Pharmacy will continue to follow and will adjust dose/frequency as necessary. Thank you. Pharmacy has transitioned to AUC monitoring for vancomycin. AUC/MARÍA is the preferred PK/PD target and is associated with decreased risk of nephrotoxicity compared to traditional trough targets.
--- NOTE | 2024-08-27 12:41 | Cardiology Progress Note ---
Date of Service August 27, 2024 Assessment & Plan (1) Severe sepsis: (2) Elevated troponin: (3) Atrial fibrillation with rapid ventricular response: (4) NSTEMI (non-ST elevated myocardial infarction): Plan 08/25/24 Patient admitted with altered mental status/lethargy secondary to sepsis secondary to UTI and LE wounds. NSTEMI noted on admission consistent with type II demand ischemic event in setting of acute illness. Continue 48 hours of IV heparin. Currently no symptoms to suggest angina. Echo with preserved LVEF and small apical wall motion abnormality. EF 55% Recommend conservative medical therapies for presumed ischemic heart disease. Continue ASA. Add statin - atorvastatin Resume beta laureano now that BP has improved - will resume lower dose metoprolol and increase as needed/tolerated. Prior home dose was metoprolol tartrate 100 mg BID. Start metoprolol 25 mg BID for now. Once she is tolerating beta laureano, will transition to Toprol. continue current treatment for sepsis, UTI and wound evaluation. Antibiotics per hospitalist. It appears she has severe PVD of the LE per duplex. Continue ASA and add statin. consider vascular evaluation 08/26/24: Admitted with sepsis, diagnosed with NSTEMI demand Type II event in setting of acute illness and afib RVR with non compliance with oral metoprolol at home No anginal complaints. Continue IV heparin for total of 48 hours. Continue ASA. Statin added yesterday BP improved from admission, metoprolol being titrated for chronic afib. Transition to oral metoprolol succinate 50 mg BID. Continue to titrate as needed/tolerated. If BP trends lower with metoprolol titration, consider adding digoxin. Patient previously deemed high risk for anticoagulation therapy due to frequent falls. Now that patient is primarily bed bound due to contractures, could reconsider anticoagulation with Eliquis to aid her afib and PVD Continue treatment for sepsis/LE wounds per hospitalist. Vascular evaluated for significant PVD. Med management recommended. 08/27/24: Admitted with sepsis secondary to foot ulcerations and UTI. NSTEMI secondary to sepsis. Echo with preserved EF, small apical wall motion abnormality. Med management recommended. Treated with 48 hours of heparin. Now discontinued Continue ASA, statin, beta laureano. Chronic/persistent afib on telemetry. Variable rates. Increase metoprolol succinate to 75 mg BID. She was previously not anticoagulated due to frequent falls. Now primarily bed bound. Given high risk for stroke and high risk for DVT given contractures and immobility, recommend initiation of low dose Eliquis 2.5 mg BID. Will prescribe low dose based on age > 80, variable creatinine (often greater than 1.5) and variable weight (often less than < 60 kg). Case discussed with Dr. Rich. I spent a total of 30 minutes on the date of service in preparation, delivery, and documentation of the care provided to this patient, excluding any time spent in the performance of separately billed services. Geeta Silvestre PA-C Department of Cardiology, [facility] This chart was completed in part utilizing Speech Voice Recognition Software. Grammatical errors, random word insertions, pronoun errors, and incomplete sentences are an occasional consequence of this system due to software limitations, ambient noise, and hardware issues. Any formal questions or concerns about the content, text, or information contained within the body of this dictation should be directly addressed to the provider for clarification. Admission and Anticipated Discharge Date Admission Date: August 24, 2024 Supervising Physician Co-Signing Physician Notes I have personally performed a history and physical examination on the patient. I have reviewed the advance practitioner's documentation, and I agree with, and take responsibility for the plan of care. 84-year-old female admitted secondary to change in mental status, lethargy. Diagnosed with sepsis secondary to urinary tract infection and lower extremity wounds. Elevated troponin secondary to demand ischemia insetting of atrial fibrillation with rapid ventricular response / sepsis. Echocardiogram with small apical wall motion abnormality, otherwise, preserved LV systolic function with severe mitral regurgitation which appears chronic. No evidence of volume overload. Poor historian due to underlying dementia. Denies anginal symptoms. Heart rate remains elevated. Recommendation: * Conservative medical management. * Add low-dose Eliquis, 2.5 mg twice daily * Titrate metoprolol to 75 mg twice daily (outpatient dose 100 mg twice daily) * Continue aspirin and statin. * Treatment of sepsis/antibiotics as per hospitalist Abhijeet Rich DO, [facility] I spent a total of 25 minutes on the date of service in preparation, delivery, and documentation of the care provided to this patient, excluding any time spent in the performance of separately billed services. Subjective Patient more awake/alert today. Answering questions. Denies chest pain or SOB. Review of Systems Review of Systems: All systems reviewed & are unremarkable except as noted in HPI & below Physical Exam Constitutional: + frail appearing; no acute distress Neck: trachea midline, no thyromegaly Respiratory: no labored breathing Auscultation: + diminished lung sounds; no crackles and no rales Cardiovascular: Rate/Rhythm: + tachycardic and + irregularly irregular Heart Sounds: + murmur (II/ systolic murmur) Vessels: no JVD Extremities: no edema Gastrointestinal (Abdomen): normal bowel sounds, soft, nontender, no hepatosplenomegaly Neurologic: PERRL, EOMI, accommodation nl, no face palsy, no dysarthria Results & Data Vital Signs (Past 12 Hours) Vital Signs Temp Pulse Pulse Resp BP Pulse Ox O2 Del Method 08/27/24 11:08 36.8 C 93 H 18 107/78 96 Room Air 08/27/24 07:20 36.6 C 103 H 19 108/72 96 Room Air 08/27/24 07:11 113 H 08/27/24 02:32 36.4 C L 106 H 20 119/75 96 Room Air Laboratory Results CBC 08/27/24 Range/Units 05:25 WBC 9.22 (4.8-10.8) K/ul RBC 4.39 (4.20-5.40) M/uL Hgb 12.9 (12.0-16.0) g/dl Hct 38.7 (37.0-47.0) % Plt Count 214 (130-400) K/uL Neut # (Auto) 6.99 H (1.40-6.50) K/uL Lymph # (Auto) 1.46 (1.20-3.40) K/uL Greer # (Auto) 0.53 (0.11-0.59) K/uL Eos # (Auto) 0.16 (0.00-0.50) K/uL Baso # (Auto) 0.02 (0.00-0.20) K/uL Comprehensive Metabolic Panel 08/27/24 Range/Units 05:25 Sodium 143 (136-145) mmol/L Potassium 3.6 (3.5-5.1) mmol/L Chloride 111 H (98-107) mmol/L Carbon Dioxide 26 (21-32) mmol/L BUN 12 (6-23) mg/dl Creatinine 0.82 (0.6-1.2) mg/dl Glucose 79 (70-99(Fasting)) mg/dl Calcium 7.8 L (8.6-10.3) mg/dl Intake and Output 08/26/24 08/27/24 08/27/24 22:59 06:59 14:59 Intake Total 163.7 / 2100.133 208.5 / 2100.133 270 / 270 Output Total 375 / 725 Balance -211.3 / 1375.133 208.5 / 1375.133 269 / 269 Intake: IV 163.7 / 2100.133 208.5 / 2100.133 270 / 270 Heparin 80486 Unit/500 ml D5w 63.7 / 530.133 108.5 / 530.133 25,000 units In 500 ml @ 700 UNITS/HR 14 mls/hr IV .Q24H [facility] Rx#:[id number] Piperacillin/Tazobactam 4.5 gm 100 / 300 100 / 300 In 100 ml @ 25 mls/hr IV Q8H [facility] Rx#:[id number] Vancomycin HCl 1,000 mg In 270 270 / 270 ml @ 200 mls/hr IV Q18H [facility] Rx# :[id number] Output: Urine Amount (Catheter) 375 / 725 Lang/Indwelling 375 / 725 # Bowel Movements Other: Weight 66.9 kg Weight Measurement Method Built in [facility] Diagnostic Findings Telemetry reviewed: Afib with variable rates ranging 100-120's Medications Administered Current Inpatient Medications Apixaban (Apixaban 2.5 Mg Tab) 2.5 mg PO BID [facility] Stop: 09/26/24 12:29 Aspirin (Aspirin 81 Mg Ectab) 81 mg PO DAILY [facility] Stop: 09/24/24 08:59 Last Admin: 08/27/24 09:43 Dose: 81 mg Atorvastatin Calcium (Atorvastatin 40 Mg Tab) 40 mg PO QAM [facility] Stop: 09/24/24 12:14 Last Admin: 08/27/24 09:43 Dose: 40 mg Bisacodyl (Bisacodyl 10 Mg Supp) 10 mg DC DAILY PRN PRN Reason: Constipation Stop: 09/24/24 01:31 Collagenase (Collagenase Oint 30 Gm Tube) 1 appln EXT DAILY [facility] Stop: 09/24/24 13:59 Last Admin: 08/27/24 09:44 Dose: 1 appln Dextrose (Dextrose 50% 50 Ml Syringe) 25 - 50 ml IV UD PRN; Protocol PRN Reason: Hypoglycemia Protocol Stop: 09/24/24 01:31 Epinephrine HCl (Epinephrine Inj 1 Mg/Ml Amp) 0.3 mg IM Q4H PRN PRN Reason: Allergic Reaction Stop: 09/24/24 01:58 Fentanyl (Fentanyl 12 Mcg/Hr Tdsy) 1 patch TD Q3D [facility] Stop: 09/08/24 14:14 Last Admin: 08/25/24 15:03 Dose: 1 patch Fluoxetine HCl (Fluoxetine Hcl 20 Mg Cap) 20 mg PO DAILY [facility] Stop: 09/24/24 08:59 Last Admin: 08/27/24 09:43 Dose: 20 mg Glucagon (Glucagon For Inj 1 Mg Vial) 1 mg SQ UD PRN; Protocol PRN Reason: Hypoglycemia Protocol Stop: 09/24/24 01:31 Glucose (Glucose 40% Gel 15 Gm Tube) 15 - 30 gm PO UD PRN; Protocol PRN Reason: Hypoglycemia Protocol Stop: 09/24/24 01:31 Glucose (Glucose 10 Tab/Tube) 4 - 8 tab PO UD PRN; Protocol PRN Reason: Hypoglycemia Protocol Stop: 09/24/24 01:31 Piperacillin Sod/Tazobactam Sod (Zosyn) 4.5 gm in 100 mls @ 25 mls/hr IV Q8H [facility]; Protocol Stop: 09/04/24 07:59 Last Admin: 08/27/24 09:42 Dose: 25 mls/hr Acetaminophen (Ofirmev) 1,000 mg in 100 mls @ 400 mls/hr IV Q8H PRN PRN Reason: Pain or Fever Stop: 08/28/24 01:36 Last Infusion: 08/25/24 02:45 Dose: Infused Vancomycin HCl (Vancomycin Hcl) 1,000 mg in 270 mls @ 200 mls/hr IV Q18H [facility] Stop: 09/01/24 07:59 Last Infusion: 08/27/24 12:01 Dose: Infused Insulin Aspart (Insulin Aspart Per Unit Charge) 0 units SC ACHS [facility] Stop: 09/24/24 11:59 Last Admin: 08/27/24 08:13 Dose: Not Given Levalbuterol HCl (Levalbuterol Hcl 0.63 Mg/3 Ml Neb) 0.63 mg NEB Q4H PRN; Protocol PRN Reason: Shortness Of Breath Or Wheezing Stop: 09/24/24 05:14 Metoprolol Succinate (Metoprolol Succ 25mg Ext Rel Tab) 75 mg PO BID [facility] Stop: 09/26/24 20:59 Metoprolol Succinate (Metoprolol Succ 25mg Ext Rel Tab) 25 mg PO ONE ONE Stop: 08/27/24 12:27 Miscellaneous (Carbohydrates For Hypoglycemia ) 15 - 30 gm PO UD PRN PRN Reason: Hypoglycemia Protocol Stop: 09/24/24 01:31 Miscellaneous (Fentanyl Patch Remove & Waste) 1 each N/A Q3D [facility] Stop: 09/24/24 14:14 Last Admin: 08/25/24 15:03 Dose: 1 each Miscellaneous (Check Fentanyl Patch Placement) 1 each N/A QS [facility] Stop: 09/24/24 15:59 Last Admin: 08/27/24 09:42 Dose: 1 each Miscellaneous Information (Vancomycin Consult Active) 1 each N/A UD PRN PRN Reason: Consult Stop: 09/23/24 18:47 Miscellaneous Information (Pharmacy Glycemic Mgmt Consult) 1 each N/A UD PRN PRN Reason: Consult Stop: 09/24/24 01:31 Tramadol HCl (Tramadol Hcl 50 Mg Tablet) 25 mg PO Q6H PRN PRN Reason: Severe Pain (Scale 7, 8, 9,10) Stop: 09/24/24 06:47 Last Admin: 08/27/24 09:41 Dose: 25 mg
[2024-08-27] MEDS: APIXABAN 2.5 MG TAB PO SCH (13:02)
[2024-08-27] MEDS: METOPROLOL SUCC 25MG EXT REL TAB PO ONE (13:02)
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
--- NOTE | 2024-08-27 17:04 | Electrocardiogram Report ---
Test Reason : Blood Pressure : */* mmHG Vent. Rate : 139 BPM Atrial Rate : * BPM P-R Int : * ms QRS Dur : 64 ms QT Int : 280 ms P-R-T Axes : * 23 -53 degrees QTcB Int : 426 ms Atrial fibrillation with rapid ventricular response Nonspecific T wave abnormality Abnormal ECG When compared with ECG of 26-Jun-2023 10:22, Nonspecific T wave abnormality, worse in Inferior leads Nonspecific T wave abnormality now evident in Lateral leads Confirmed by Danyel Hopper ([id number]) on 08/27/2024 5:03:47 PM Referred By: REFERRED SELF Confirmed By: Danyel Hopper
[2024-08-27] MEDS ORDERED: PROMETHAZINE 6.25 MG/50.25 ML BAG IV PRN (20:12)
[2024-08-27] MEDS: PROMETHAZINE 6.25 MG/50.25 ML BAG IV STA (20:39)
[2024-08-27] MEDS: METOPROLOL SUCC 25MG EXT REL TAB PO SCH (20:46)
[2024-08-28 06:43] LABS: Hematocrit (blood only) 39.5 % (37.0-47.0); Hemoglobin 13.2 g/dl (12.0-16.0); Mean Corpuscular Hemoglobin 29.1 pg (25.0-34.0); Mean Corpuscular Hgb Conc 33.4 g/dL (32.0-36.0); Mean Platelet Volume 10.8 fL (9.4-12.4); Platelet Count 204 K/uL (130-400); RDW Coefficient of Variation 13.6 % (11.5-14.5); RDW Standard Deviation 43.6 fL (36.4-46.3); Red Blood Count 4.54 M/uL (4.20-5.40); White Blood Count 8.37 K/ul (4.8-10.8)
[2024-08-28 07:10] LABS: Calcium 7.8 mg/dl (8.6-10.3); Potassium 3.7 mmol/L (3.5-5.1)
--- NOTE | 2024-08-28 15:20 | Cardiology Progress Note ---
Date of Service August 28, 2024 Assessment & Plan (1) Severe sepsis: (2) Elevated troponin: (3) Atrial fibrillation with rapid ventricular response: (4) NSTEMI (non-ST elevated myocardial infarction): Plan 08/25/24 Patient admitted with altered mental status/lethargy secondary to sepsis secondary to UTI and LE wounds. NSTEMI noted on admission consistent with type II demand ischemic event in setting of acute illness. Continue 48 hours of IV heparin. Currently no symptoms to suggest angina. Echo with preserved LVEF and small apical wall motion abnormality. EF 55% Recommend conservative medical therapies for presumed ischemic heart disease. Continue ASA. Add statin - atorvastatin Resume beta laureano now that BP has improved - will resume lower dose metoprolol and increase as needed/tolerated. Prior home dose was metoprolol tartrate 100 mg BID. Start metoprolol 25 mg BID for now. Once she is tolerating beta laureano, will transition to Toprol. continue current treatment for sepsis, UTI and wound evaluation. Antibiotics per hospitalist. It appears she has severe PVD of the LE per duplex. Continue ASA and add statin. consider vascular evaluation 08/26/24: Admitted with sepsis, diagnosed with NSTEMI demand Type II event in setting of acute illness and afib RVR with non compliance with oral metoprolol at home No anginal complaints. Continue IV heparin for total of 48 hours. Continue ASA. Statin added yesterday BP improved from admission, metoprolol being titrated for chronic afib. Transition to oral metoprolol succinate 50 mg BID. Continue to titrate as needed/tolerated. If BP trends lower with metoprolol titration, consider adding digoxin. Patient previously deemed high risk for anticoagulation therapy due to frequent falls. Now that patient is primarily bed bound due to contractures, could reconsider anticoagulation with Eliquis to aid her afib and PVD Continue treatment for sepsis/LE wounds per hospitalist. Vascular evaluated for significant PVD. Med management recommended. 08/27/24: Admitted with sepsis secondary to foot ulcerations and UTI. NSTEMI secondary to sepsis. Echo with preserved EF, small apical wall motion abnormality. Med management recommended. Treated with 48 hours of heparin. Now discontinued Continue ASA, statin, beta laureano. Chronic/persistent afib on telemetry. Variable rates. Increase metoprolol succinate to 75 mg BID. She was previously not anticoagulated due to frequent falls. Now primarily bed bound. Given high risk for stroke and high risk for DVT given contractures and immobility, recommend initiation of low dose Eliquis 2.5 mg BID. Will prescribe low dose based on age > 80, variable creatinine (often greater than 1.5) and variable weight (often less than < 60 kg). 08/28/24: Patient admitted with sepsis, and NSTEMI secondary to demand ischemia. Treated with 48 hours of IV heparin. Conservative medical management recommended for presumed ischemic heart disease. Continue ASA, statin, beta laureano. Chronic afib with elevated rates on admission. Initially BB was held due to hyp otension. BP has improved with treatment of sepsis. Metoprolol resumed and dose has been increased slowly. Afib rates slowly improving. Resume metoprolol succinate 100 mg BID (prior home dose) Eliquis initiated at 2.5 mg BID given persistent afib/stroke prophylaxis and severe PVD noted. She was previously not anticoagulated due to frequent falls. Now bed bound. Patient on appropriate cardiovascular medications/therapies. No further cardiac testing warranted at this time. Will sign off. Please contact production control coordinating clerk cardiology provider with additional questions or concerns. Case discussed with Dr. Rich. I spent a total of 30 minutes on the date of service in preparation, delivery, and documentation of the care provided to this patient, excluding any time spent in the performance of separately billed services. Geeta Silvestre PA-C Department of Cardiology, [facility] This chart was completed in part utilizing Speech Voice Recognition Software. Grammatical errors, random word insertions, pronoun errors, and incomplete sentences are an occasional consequence of this system due to software limitations, ambient noise, and hardware issues. Any formal questions or concerns about the content, text, or information contained within the body of this dictation should be directly addressed to the provider for clarification. Admission and Anticipated Discharge Date Admission Date: August 24, 2024 Supervising Physician Co-Signing Physician Notes I have personally performed a history and physical examination on the patient. I have reviewed the advance practitioner's documentation, and I agree with, and take responsibility for the plan of care. 84-year-old female admitted secondary to change in mental status, lethargy. Diagnosed with sepsis secondary to urinary tract infection and lower extremity wounds. Elevated troponin secondary to demand ischemia insetting of atrial fibrillation with rapid ventricular response / sepsis. Echocardiogram with small apical wall motion abnormality, otherwise, preserved LV systolic function with severe mitral regurgitation which appears chronic. No evidence of volume overload. Poor historian due to underlying dementia. Denies anginal symptoms. Heart rate improved, however, remains mildly elevated. Recommendation: * Conservative medical management. * Low-dose Eliquis, 2.5 mg twice daily added 08/27/2024 * Titrate metoprolol to 100 mg twice daily (outpatient dose) * Continue aspirin and statin. * Treatment of sepsis/antibiotics as per hospitalist Abhijeet Rich DO, [facility] I spent a total of 20 minutes on the date of service in preparation, delivery, and documentation of the care provided to this patient, excluding any time spent in the performance of separately billed services. Subjective Patient resting in bed, feeling "good" today. Nurse addressing LE wounds at time of visit which are painful for patient. She otherwise denies chest pain or SOB. No palpitations. No dizziness. Review of Systems Review of Systems: All systems reviewed & are unremarkable except as noted in HPI & below Physical Exam Constitutional: + frail appearing; no acute distress Neck: trachea midline, no thyromegaly Respiratory: no labored breathing Auscultation: + diminished lung sounds; no crackles and no rales Cardiovascular: Rate/Rhythm: + tachycardic and + irregularly irregular Heart Sounds: + murmur (II/ systolic murmur) Vessels: no JVD Extremities: no edema Gastrointestinal (Abdomen): normal bowel sounds, soft, nontender, no hepatosplenomegaly Neurologic: PERRL, EOMI, accommodation nl, no face palsy, no dysarthria Results & Data Vital Signs (Past 12 Hours) Vital Signs Temp Pulse Pulse Resp BP Pulse Ox O2 Del Method 08/28/24 11:08 36.3 C L 109 H 17 116/81 95 Room Air 08/28/24 07:46 92 H 08/28/24 07:19 36.4 C L 90 17 113/78 92 Room Air Laboratory Results CBC 08/28/24 Range/Units 06:21 WBC 8.37 (4.8-10.8) K/ul RBC 4.54 (4.20-5.40) M/uL Hgb 13.2 (12.0-16.0) g/dl Hct 39.5 (37.0-47.0) % Plt Count 204 (130-400) K/uL Comprehensive Metabolic Panel 08/28/24 Range/Units 06:21 Sodium 144 (136-145) mmol/L Potassium 3.7 (3.5-5.1) mmol/L Chloride 114 H (98-107) mmol/L Carbon Dioxide 24 (21-32) mmol/L BUN 10 (6-23) mg/dl Creatinine 0.83 (0.6-1.2) mg/dl Glucose 98 (70-99(Fasting)) mg/dl Calcium 7.8 L (8.6-10.3) mg/dl Intake and Output 08/28/24 08/28/24 08/28/24 06:59 14:59 22:59 Intake Total 370 / 1190.25 100 / 100 Output Total 600 / 1153 Balance -230 / 37.25 99 / 99 Intake: IV 370 / 990.25 100 / 100 Piperacillin/Tazobactam 4.5 gm 100 / 300 100 / 100 In 100 ml @ 25 mls/hr IV Q8H [facility] Rx#:[id number] Vancomycin HCl 1,000 mg In 270 270 / 540 ml @ 200 mls/hr IV Q18H [facility] Rx# :[id number] Output: Urine Amount (Catheter) 600 / 1150 Lang/Indwelling 600 / 1150 # Bowel Movements Other: Weight 66.8 kg Weight Measurement Method Built in [facility] Diagnostic Findings Telemetry reviewed: Persistent afib rates ranging 90-110 bmp Medications Administered Current Inpatient Medications Apixaban (Apixaban 2.5 Mg Tab) 2.5 mg PO BID [facility] Stop: 09/26/24 12:29 Last Admin: 08/28/24 08:49 Dose: 2.5 mg Aspirin (Aspirin 81 Mg Ectab) 81 mg PO DAILY [facility] Stop: 09/24/24 08:59 Last Admin: 08/28/24 08:50 Dose: 81 mg Atorvastatin Calcium (Atorvastatin 40 Mg Tab) 40 mg PO QAM [facility] Stop: 09/24/24 12:14 Last Admin: 08/28/24 08:50 Dose: 40 mg Bisacodyl (Bisacodyl 10 Mg Supp) 10 mg [place] DAILY PRN PRN Reason: Constipation Stop: 09/24/24 01:31 Collagenase (Collagenase Oint 30 Gm Tube) 1 appln EXT DAILY [facility] Stop: 09/24/24 13:59 Last Admin: 08/28/24 08:51 Dose: 1 appln Dextrose (Dextrose 50% 50 Ml Syringe) 25 - 50 ml IV UD PRN; Protocol PRN Reason: Hypoglycemia Protocol Stop: 09/24/24 01:31 Epinephrine HCl (Epinephrine Inj 1 Mg/Ml Amp) 0.3 mg IM Q4H PRN PRN Reason: Allergic Reaction Stop: 09/24/24 01:58 Fentanyl (Fentanyl 12 Mcg/Hr Tdsy) 1 patch TD Q3D [facility] Stop: 09/08/24 14:14 Last Admin: 08/28/24 13:27 Dose: 1 patch Fluoxetine HCl (Fluoxetine Hcl 20 Mg Cap) 20 mg PO DAILY [facility] Stop: 09/24/24 08:59 Last Admin: 08/28/24 08:50 Dose: 20 mg Glucagon (Glucagon For Inj 1 Mg Vial) 1 mg SQ UD PRN; Protocol PRN Reason: Hypoglycemia Protocol Stop: 09/24/24 01:31 Glucose (Glucose 40% Gel 15 Gm Tube) 15 - 30 gm PO UD PRN; Protocol PRN Reason: Hypoglycemia Protocol Stop: 09/24/24 01:31 Glucose (Glucose 10 Tab/Tube) 4 - 8 tab PO UD PRN; Protocol PRN Reason: Hypoglycemia Protocol Stop: 09/24/24 01:31 Piperacillin Sod/Tazobactam Sod (Zosyn) 4.5 gm in 100 mls @ 25 mls/hr IV Q8H [facility]; Protocol Stop: 09/04/24 07:59 Last Infusion: 08/28/24 12:58 Dose: Infused Vancomycin HCl (Vancomycin Hcl) 1,000 mg in 270 mls @ 200 mls/hr IV Q18H [facility] Stop: 09/01/24 07:59 Last Infusion: 08/28/24 03:44 Dose: Infused Promethazine HCl (Phenergan) 6.25 mg in 50.25 mls @ 201 mls/hr IV Q6H PRN PRN Reason: Nausea And Vomiting Stop: 09/26/24 20:11 Insulin Aspart (Insulin Aspart Per Unit Charge) 0 units SC ACHS [facility] Stop: 09/24/24 11:59 Last Admin: 08/28/24 12:08 Dose: Not Given Levalbuterol HCl (Levalbuterol Hcl 0.63 Mg/3 Ml Neb) 0.63 mg NEB Q4H PRN; Protocol PRN Reason: Shortness Of Breath Or Wheezing Stop: 09/24/24 05:14 Metoprolol Succinate (Metoprolol Succ 50mg Ext Rel Tab) 100 mg PO BID [facility] Stop: 09/27/24 20:59 Miscellaneous (Carbohydrates For Hypoglycemia ) 15 - 30 gm PO UD PRN PRN Reason: Hypoglycemia Protocol Stop: 09/24/24 01:31 Miscellaneous (Fentanyl Patch Remove & Waste) 1 each N/A Q3D [facility] Stop: 09/24/24 14:14 Last Admin: 08/28/24 13:18 Dose: 1 each Miscellaneous (Check Fentanyl Patch Placement) 1 each N/A QS [facility] Stop: 09/24/24 15:59 Last Admin: 08/28/24 08:50 Dose: 1 each Miscellaneous Information (Vancomycin Consult Active) 1 each N/A UD PRN PRN Reason: Consult Stop: 09/23/24 18:47 Miscellaneous Information (Pharmacy Glycemic Mgmt Consult) 1 each N/A UD PRN PRN Reason: Consult Stop: 09/24/24 01:31 Tramadol HCl (Tramadol Hcl 50 Mg Tablet) 25 mg PO Q6H PRN PRN Reason: Severe Pain (Scale 7, 8, 9,10) Stop: 09/24/24 06:47 Last Admin: 08/28/24 10:15 Dose: 25 mg
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
[2024-08-28] MEDS: METOPROLOL SUCC 50MG EXT REL TAB PO SCH (20:33)
--- NOTE | 2024-08-28 21:11 | Podiatry Progress Note ---
Date of Service August 28, 2024 Assessment & Plan (1) Non-healing wound of right heel: (2) Diabetic polyneuropathy associated with type 2 diabetes mellitus: (3) Other specified peripheral vascular diseases: (4) Pressure ulcer of right heel, stage 3: Plan Patient was examined and evaluated. - Continue offloading the right heel and with Santyl to the heel ulceration. - There is evidence of worsening deep tissue injury along the outside of the right foot. This is consistent with the contracture and pressure in the setting of her vascular disease. - No foot and ankle surgery planned given this vascular disease, but if these ulcers worsen or become acutely infected, she may benefit most from proximal amputation - Patient and her family should consider long-term outcomes associate with this calcaneal ulceration as well as her significant contractures. These may lead to continued hospitalizations if she is unable to reduce pressure to the heel. - I will be out of town until Sunday but reachable for any concerns via [place]. If any concerns develop, do not hesitate to message. Will check back in on her then if she remains hospitalized. Admission and Anticipated Discharge Date Admission Date: August 24, 2024 Subjective Seen at bedside this morning. More alert than I have seen her, still disoriented. Does not recall seeing me. Denies specific pain to heel or lower extremities, other than pain with her contracture. States her foot is "messed up" and alternately states "I ain't dying" and "I may not make it" with her diminished cognition. Physical Exam Physical Exam: DP/PT pulses nonpalpable. CFT is brisk to the digits. No acute gangrenous changes noted to the forefoot or this plantar heel. There are 2 distinct ulcerations or pressure injuries to the right plantar heel. There is a dry stable eschar on the lateral aspect of the calcaneus and a more deep tissue injury acute seeming ulceration without open lesion to the medial aspect of the calcaneus. No active bleeding or drainage is noted on clinical exam. Advanced trophic changes are noted to the lower extremity with thinning of the skin, cooling, and nail changes with hair loss overall. The knee is significant contracted and not flexible, placing drastic increase in pressure on the plantar aspect of the calcaneus. noninvasive vascular testing reveals monophasic flow superficial femoral block to the lower extremity. Of note, there is new deep tissue injury, further distal along the fifth metatarsal base today. This is concerning for continued pressure due to her contracture and significant vascular disease. Constitutional: WD/WN, vitals as above + ill appearing, average body habitus and + thin Eyes: PERRL, conjunctivae normal, anicteric sclerae ENMT: external ear and nose normal, oropharynx normal Mouth: + poor dentition Neck: trachea midline, no thyromegaly normal visual inspection Respiratory: normal respiratory effort; no respiratory distress Cardiovascular: Rate/Rhythm: regular rate and regular rhythm Vessels: + posterior tibial pulses abnormal and + dorsalis pedis pulses abnormal Extremities: normal capillary refill; no pedal edema Chest (Breasts): Chest: normal inspection of chest Gastrointestinal (Abdomen): Inspection/Auscultation: abdomen normal to inspection Percussion/Palpation: + abdomen tender and abdomen soft Musculoskeletal: no cyanosis or clubbing, extremities motor strength 5/5 Head/Neck/Chest: normocephalic and head atraumatic Extremities: extremities normal to inspection and + limited ROM of extremities Hip: + deformity, + limited ROM of hip and + hip ROM with crepitation Knee: + limited ROM of knee and + knee ROM with crepitation Skin: + lesion, + ulcer, + dry skin and + esch ar; no erythema Neurologic: awake; no focal motor deficits Psychiatric: A+Ox3, euthymic affect Orientation: alert and + guarded; + not oriented to place and + not oriented to time Insight: + limited insight Judgment: + limited judgement Results & Data Results & Data Vital Signs (Past 12 Hours) Vital Signs Temp Pulse Pulse Resp BP Pulse Ox O2 Del Method 08/28/24 20:29 104 H 135/83 08/28/24 19:56 36.9 C 82 16 118/66 98 Room Air 08/28/24 15:38 109 H 08/28/24 15:08 36.3 C L 91 H 18 128/86 94 Room Air 08/28/24 11:08 36.3 C L 109 H 17 116/81 95 Room Air
[2024-08-29 07:15] LABS: Calcium 7.6 mg/dl (8.6-10.3); Creatinine Clr Calc Pharmacy 56.9 ml/min; Potassium 3.1 mmol/L (3.5-5.1)
--- NOTE | 2024-08-29 08:47 | Pharmacy Report ---
Pharmacy Glycemic Short Note 2 - Date of Service August 29, 2024 - Glycemic Short BSG Results (Last 24 hours): 08/28/24 08/28/24 08/28/24 11:03 16:09 20:18 Glucose POC Glucose 143 H 130 H 135 H 08/29/24 08/29/24 05:58 07:29 Glucose 130 H POC Glucose 131 H OUTPATIENT ANTIDIABETIC REGIMEN: * Metformin 1g PO BID HbA1c: 10.1% (08/21/24) ASSESSMENT: 08/29/24: * Blood sugars remain well-controlled with no insulin administered yesterday * Fasting blood sugar trending up today today 131 mg/dL * Remains on broad spectrum antibiotics (vancomycin/Zosyn) 08/27/24: * As previously noted, blood sugar trend has been overall lower than earlier this admission * Fasting blood sugar of 87 mg/dL this morning * Given patient's age and labile blood sugars with multiple recent blood sugars below 100 mg/dL, priority will be to minimize risk of hypoglycemia / * Blood sugars looking great on 12 units of Lantus, [phone]/dl. Will decrease slightly to prevent hypoglycemia, and continue patient on basal as patient was uncontrolled on admission without the basal insulin. * No carb intake reported, so no CR used at this time, RN reports that family will sometimes feed patient, and she is taking pills in applesauce. Pureed diet. * Continue current insulin orders. 08/25 * 84 year old F receiving IV Vancomycin + Zosyn for treatment of UTI & gangrene toe infection. Type 2 DM on metformin alone as outpatient, uncontrolled. * Oral agents are not recommended for inpatient use d/t drug interactions, changing PO intake, and difficulty titrating for acute hyper/hypoglycemia. * Will hold oral agents for admission and utilize SQ basal bolus insulin regimen which is the recommended regimen for inpatient glycemic control. * No basal at this time, patient NPO, latest BSG at goal. PLAN FOR INPATIENT GLYCEMIC CONTROL: * Hold outpatient oral diabetes medications * Basal insulin * hold * Consider addition of low-dose basal insulin (~5 units) if upward trend continues. * Bolus insulin * NovoLog per scale ACHS or Q6hrs while NPO * Goal Range: Low 120 mg/dL - High 160 mg/dL * Correction Factor: 35 mg/dL/unit * Nutritional / Prandial insulin per carb ratio of 1 unit per 12 grams CHO consumed
[2024-08-29] MEDS: POTASSIUM CHLORIDE 20 MEQ/15 ML UDC PO ONE (09:49)
[2024-08-29 11:06] VITALS: BP 128/76; RESP 18; TEMP 98.4; O2SAT 95
[2024-08-29] MEDS: DOXYCYCLINE HYCLATE 100 MG CAP PO SCH (11:14)
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
[2024-08-29 15:09] VITALS: PULSE 95
[2024-08-29] MEDS ORDERED: AMOXICILLIN/CLAVULANATE 875 MG TAB PO SCH (17:00)
== END 2024-08-29 16:30 | DRG 871 ==
LOC: ED 16:54 → 2S 21:54 → SUATTDRO 21:54 → 2S 08-25 00:26

== ENCOUNTER 2024-11-10 08:49 | Inpatient (IN) ==
--- NOTE | 2024-10-29 12:57 | PAT Medication Instructions ---
Medication Instructions Date of Service October 29, 2024 Home Medications Medication Instructions Recorded apixaban 2.5 mg tablet (Eliquis) 2.5 mg PO BID #60 tabs 08/29/24 atorvastatin 40 mg tablet 40 mg PO QAM #30 tabs 08/29/24 metoprolol succinate 50 mg 100 mg (2 x 50 mg) PO BID #60 tabs 08/29/24 tablet,extended release 24 hr potassium chloride 20 mEq 20 meq PO DAILY #3 tabs 08/29/24 tablet,extended release trazodone 100 mg tablet 100 mg PO HS acetaminophen 325 mg tablet 650 mg PO QID PRN aspirin 81 mg chewable tablet 81 mg PO DAILY bisacodyl 10 mg rectal suppository (Dulcolax (bisacodyl)) 10 mg IA DAILY PRN epinephrine 0.3 mg/0.3 mL injection, auto-injector 0.3 mg IM Q4H PRN fluoxetine 20 mg capsule 20 mg PO DAILY magnesium hydroxide 400 mg/5 mL oral suspension (Milk of Magnesia) 30 ml PO DAILY PRN metformin 1,000 mg tablet 1,000 mg PO BID protein supplement 1 ea PO BID sennosides 8.6 mg-docusate sodium 50 mg tablet (Senna with Docusate Sodium) 1 tab-cap PO BID sodium phosphates 19 gram-7 gram/118 mL enema (Fleet Enema) 118 ml IA DAILY PRN apixaban 2.5 mg tablet (Eliquis) 2.5 mg PO BID atorvastatin 40 mg tablet 40 mg PO QAM metoprolol succinate 50 mg tablet,extended release 24 hr 100 mg (2 x 50 mg) PO BID potassium chloride 20 mEq tablet,extended release 20 meq PO DAILY diclofenac sodium 1 % topical gel 4 g topical QID fentanyl 25 mcg/hr transdermal patch 1 patch transdermal Q72H hydrocodone 5 mg-acetaminophen 325 mg tablet 1 - 2 tab PO Q6H PRN menthol 0.44 %-zinc oxide 20.6 % topical ointment 1 applic topical TID nystatin 100,000 unit/gram topical powder 1 applic topical DAILY Continue as directed fluoxetine 20 mg capsule 20 mg PO DAILY epinephrine 0.3 mg/0.3 mL injection, auto-injector 0.3 mg IM Q4H PRN(if needed) ASK your prescriber and surgeon aspirin 81 mg chewable tablet 81 mg PO DAILY apixaban 2.5 mg tablet (Eliquis) 2.5 mg PO BID fentanyl 25 mcg/hr transdermal patch 1 patch transdermal Q72H (do not apply on or near surgical site) STOP taking 24 hours before surgery diclofenac sodium 1 % topical gel 4 g topical QID menthol 0.44 %-zinc oxide 20.6 % topical ointment 1 applic topical TID nystatin 100,000 unit/gram topical powder 1 applic topical DAILY DO NOT take the morning of surgery bisacodyl 10 mg rectal suppository (Dulcolax (bisacodyl)) 10 mg IA DAILY PRN magnesium hydroxide 400 mg/5 mL oral suspension (Milk of Magnesia) 30 ml PO DAILY PRN metformin 1,000 mg tablet 1,000 mg PO BID protein supplement 1 ea PO BID sennosides 8.6 mg-docusate sodium 50 mg tablet (Senna with Docusate Sodium) 1 tab-cap PO BID sodium phosphates 19 gram-7 gram/118 mL enema (Fleet Enema) 118 ml IA DAILY PRN potassium chloride 20 mEq tablet,extended release 20 meq PO DAILY Take morning of surgery With a small sip of water, OTHERWISE NOTHING TO EAT OR DRINK AFTER MIDNIGHT: acetaminophen 325 mg tablet 650 mg PO QID PRN(if needed) atorvastatin 40 mg tablet 40 mg PO QAM metoprolol succinate 50 mg tablet,extended release 24 hr 100 mg (2 x 50 mg) PO BID hydrocodone 5 mg-acetaminophen 325 mg tablet 1 - 2 tab PO Q6H PRN(if needed) Take evening before surgery trazodone 100 mg tablet 100 mg PO HS acetaminophen 325 mg tablet 650 mg PO QID PRN(if needed) metformin 1,000 mg tablet 1,000 mg PO BID protein supplement 1 ea PO BID sennosides 8.6 mg-docusate sodium 50 mg tablet (Senna with Docusate Sodium) 1 tab-cap PO BID metoprolol succinate 50 mg tablet,extended release 24 hr 100 mg (2 x 50 mg) PO BID hydrocodone 5 mg-acetaminophen 325 mg tablet 1 - 2 tab PO Q6H PRN(if needed) Other Notes If you have any questions please call us at [phone] or [phone] or [phone] or [phone]
--- NOTE | 2024-11-06 13:29 | Anesthesiology Consultation ---
Date of Service November 06, 2024 Assessment & Plan (1) Encounter for pre-operative examination: - awaiting surgeon ordered testing, will need updated EKG DOS if not updated since 08/25/24. - Per sommelier on 10/29/24: No known infectious disease contacts, current infectious disease symptoms in past 10 days or COVID positive test result in the past 30 days. Chart Review Chart Review: Pending: Refer to Additional Notes / Consult section and Patient NOT seen in Pre Admission Testing History Surgery Operation Date: 11/10/24 10:10 Proposed Procedures p Right Above Knee Amputation - [place]oacano Daugherty MD Height/Weight Height: 4 ft 8 in Weight: 56.302 kg Allergies Allergy/AdvReac Type Severity Reaction Status Date / Time codeine Allergy Mild SICK Verified 10/29/24 12:02 propoxyphene Allergy Mild SICK Verified 10/29/24 12:02 BEE STING Allergy Severe Anaphylaxis Uncoded 10/29/24 12:02 Medications Home Medications Medication Instructions Recorded Confirmed Last Taken trazodone 100 mg tablet 100 mg PO HS 05/26/23 10/29/24 05/25/23 acetaminophen 325 mg tablet 650 mg PO QID PRN Pain 08/24/24 10/29/24 Unknown aspirin 81 mg chewable tablet 81 mg PO DAILY 08/24/24 10/29/24 Unknown bisacodyl 10 mg rectal suppository 10 mg UT DAILY PRN Constipation 08/24/24 10/29/24 Unknown (Dulcolax (bisacodyl)) epinephrine 0.3 mg/0.3 mL 0.3 mg IM Q4H PRN ALLERGEY 08/24/24 10/29/24 Unknown injection, auto-injector fluoxetine 20 mg capsule 20 mg PO DAILY 08/24/24 10/29/24 Unknown magnesium hydroxide 400 mg/5 mL 30 ml PO DAILY PRN Constipation 08/24/24 10/29/24 Unknown oral suspension (Milk of Magnesia) metformin 1,000 mg tablet 1,000 mg PO BID 08/24/24 10/29/24 Unknown protein supplement 1 ea PO BID 08/24/24 10/29/24 Unknown sennosides 8.6 mg-docusate sodium 1 tab-cap PO BID Constipation 08/24/24 10/29/24 Unknown 50 mg tablet (Senna with Docusate Sodium) sodium phosphates 19 gram-7 118 ml UT DAILY PRN Constipation 08/24/24 10/29/24 Unknown gram/118 mL enema (Fleet Enema) apixaban 2.5 mg tablet (Eliquis) 2.5 mg PO BID #60 tabs 08/29/24 10/29/24 Unknown atorvastatin 40 mg tablet 40 mg PO QAM #30 tabs 08/29/24 10/29/24 Unknown metoprolol succinate 50 mg 100 mg (2 x 50 mg) PO BID #60 tabs 08/29/24 10/29/24 Unknown tablet,extended release 24 hr potassium chloride 20 mEq 20 meq PO DAILY #3 tabs 08/29/24 10/29/24 Unknown tablet,extended release diclofenac sodium 1 % topical gel 4 g topical QID 10/29/24 10/29/24 Unknown fentanyl 25 mcg/hr transdermal 1 patch transdermal Q72H 10/29/24 10/29/24 Unknown patch hydrocodone 5 mg-acetaminophen 325 1 - 2 tab PO Q6H PRN Pain 10/29/24 10/29/24 Unknown mg tablet menthol 0.44 %-zinc oxide 20.6 % 1 applic topical TID 10/29/24 10/29/24 Unknown topical ointment nystatin 100,000 unit/gram topical 1 applic topical DAILY 10/29/24 10/29/24 Unknown powder Past Medical History Medical History Atrial flutter with rapid ventricular response CAD (coronary artery disease) S/p PCI with BMS to D1 in 2011 CHF (congestive heart failure) diastolic per [place] record COPD (chronic obstructive pulmonary disease) Per records Dementia Diabetes mellitus, type 2 GERD (gastroesophageal reflux disease) History of diverticulitis History of kidney stones History of recent hospitalization (08/2024) @ [facility]--Admitted with sepsis, diagnosed with NSTEMI demand Type II event in setting of acute illness and afib RVR with non compliance with oral metoprolol at home Hyperlipidemia Lumbosacral spondylosis Major depressive disorder Nocturnal hypoxemia Per records Non-healing wound of right heel residential resident Osteoarthritis Restlessness and agitation Unspecified atrial fibrillation Weakness Past Family History Family History Son Family history of diabetes mellitus Other No family history of adverse response to anesthesia Past Surgical History Surgical History History of cardioversion (10/12/20) @ [facility] History of cataract surgery RT/LEFT History of colonoscopy History of cystoscopy History of heart artery stent 1 STENT PLACED to D1 in 2011 History of hysterectomy History of repair of rotator cuff RT History of tonsillectomy and adenoidectomy History of tooth extraction S/P angioplasty with stent Social History Smoking Status: Unknown if ever smoked tobacco type: cigarettes Do You Dip or Chew Tobacco: No alcohol intake frequency: 0-2 drinks per day substance use type: does not use Testing Echocardiogram Date: 08/25/24 EF 50-55% Afib with RVR Mild cLVH Small sized apical wall motion abnormality with hypokinesis of the segments Severely dilated LA Moderately dilated RA Aortic valve sclerosis mild, without significant aortic valvular stenosis Mild aortic regurgitation Severe mitral regurgitation Mild tricuspid regurgitation Doppler findings do not suggest pulmonary hypertension Other Testing Abdomen pelvis CT 08/25/24 Limited exam. Gallbladder is distended containing calculi. Diverticulosis The liver is enlarged and somewhat lobulated suggesting cirrhotic changes. Head CT 08/25/24 Atrophy. Nonspecific white matter disease. Findings appears similar to previous examination. If further evaluation is clinically necessary, consider correlation with MRI
--- OUTSIDE RECORDS SUMMARY | 2024-11-10 09:27 | External Medical Summary | Summary of Care ---
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); Paroxysmal atrial fibrillation (HCC); Atherosclerosis of [place] coronary artery of [place] heart without angina pectoris; HTN, goal below 140/90; Nonrheumatic mitral valve regurgitation Allergies Active Allergy Reactions Criticality Noted Date Comments Bee Venom High 11/17/2011 Life threating reaction Morphine And Codeine 11/04/2002 vomitting with all types of pain meds documented as of this encounter (statuses as of 11/03/2024) Medications EPIPEN 0.3 MG/0.3ML IJ DEVIIndications:B ee sting One injection into thigh as needed for severe allergic reaction 1 Device 5 014 Active Additional Information Patient not taking.Reported on 11/03/2024 Cyanocobalamin (B-12-SL) 1000 MCG SL TabletIndications :Low serum vitamin B12 Place 1,000 mcg under the tongue daily. 90 Tab 3 020 Active Additional Information Patient not taking.Reported on 11/03/2024 Fluconazole 150 MG Oral Tablet (Diflucan) Take 1 Tablet by mouth once as needed. Active metFORMIN HCl 500 MG Oral Tablet (Glucophage)Indic ations:Type 2 diabetes, HbA1C goal < 8% (HCC) Take 1 Tablet by mouth 2 times a day with morning and evening meals. 180 Tablet 3 023 Active Diclofenac Sodium 1 % External Gel (Voltaren)Indicat ions:Tendonitis of ankle or foot Apply 2-4 grams to right foot four times daily as needed 150 g 3 023 Active Additional Information Patient not taking.Reported on 11/03/2024 Nitroglycerin 0.4 MG Sublingual Tablet Sublingual (Nitrostat)Indica tions:Atheroscler osis of [place] coronary artery of [place] heart with angina pectoris (HCC) Place 1 Tablet under the tongue every 5 minutes as needed for Pain, Chest. up to 3 doses in 15 minutes 25 Tablet 11 023 Active Additional Information Patient not taking.Reported on 11/03/2024 EpiPen 2-Gualberto 0.3 MG/0.3ML Injection Solution Auto-injectorIndi cations:Allergic reaction to bee sting For a severe reaction: Place orange end against the outer thigh, press firmly, hold in place for 10 seconds and go to the Emergency room. 1 Each 3 023 Active Additional Information Patient not taking.Reported on 11/03/2024 Atorvastatin Calcium 80 MG Oral Tablet (Lipitor)Indicati ons:Mixed dyslipidemia Take 1 Tablet by mouth in the morning. 90 Tablet 3 023 Active Additional Information Patient taking differently: 40 mgOral Daily(AM), Reported on 11/03/2024 aspirin 20.25 MG OR TABS 1 Tablet. 023 Active Metoprolol Succinate ER 100 MG Oral Tablet Extended Release 24 Hour (Toprol XL)Indications:Pa roxysmal atrial fibrillation (HCC) 1.5 tablet in the am by mouth and 1 tablet in the pm by mouth. 100 Tablet 023 Active Eliquis 2.5 MG Oral Tablet Take 1 Tablet by mouth in the morning and 1 Tablet before bedtime. 025 Active Potassium Chloride ER 20 MEQ Oral Tablet Extended Release Take 1 Tablet by mouth in the morning. Active traMADol HCl 50 MG Oral Tablet (Ultram) Take 1 Tablet by mouth every 4 hours as needed. Active fentaNYL 25 MCG/HR Transdermal Patch 72 Hour (Duragesic) Place 1 Patch topically on the skin every 3 days. Active FLUoxetine HCl 20 MG Oral Capsule (PROzac) Take 1 Capsule by mouth in the morning. Active Blood Glucose Monitoring Suppl (ACCU-CHEK LEONORA PLUS) w/Device KITIndications:Ty pe 2 diabetes, HbA1C goal < 8% ([facility]) Use 4 times a day to check blood sugar. 1 Kit 019 2024 Discontinued oxygen IN GASIndications:No cturnal hypoxemia 2 L of oxygen while sleeping 1 Each 021 2024 Discontinued oxygen IN GASIndications:No cturnal hypoxemia,COPD, group B, by GOLD 2017 classification ([facility]) Use 2 L/min(Oxygen) as directed continuous. concentrated and home fill with portability 1 Each 2024 Discontinued Premarin 0.625 MG/GM Vaginal Cream (Estrogens, Conjugated)Indica tions:Postmenopau sanket atrophic vaginitis Administer into the vagina 0.5 g before bedtime. As directed.. 42.5 g 5 022 2024 Discontinued Accu-Chek Leonora Plus In Vitro Strip (Glucose Blood)Indications :Type 2 diabetes, HbA1C goal < 8% ([facility]) Test blood sugar 4 times a day 100 Strip 2024 Discontinued BD Swab Single Use Regular Pad Use prior to testing 100 Each 2024 Discontinued OneTouch Delica Lancets 33GIndications:Ty pe 2 diabetes, HbA1C goal < 8% (HCC) Use to test Blood 100 Each 5 022 2024 Discontinued Pseudoephedrine HCl ER 120 MG Oral Tablet Extended Release 12 Hour Take 1 Tablet by mouth 2 times a day as needed. 2024 Discontinued Fluticasone Propionate 50 MCG/ACT Nasal SuspensionIndicat ions:Chronic rhinitis Administer into each nostril 2 Sprays in the morning. 18.2 mL 3 022 2024 Discontinued Gabapentin 800 MG Oral Tablet (Neurontin)Indica tions:Thoracic and lumbosacral neuritis Take 1 Tablet by mouth in the morning. 90 Tablet 3 023 2024 Discontinued Empagliflozin 25 MG Oral Tablet (Jardiance)Indica tions:Type 2 diabetes, HbA1C goal < 8% (HCC) Take 1 Tablet by mouth in the morning. 90 Tablet 1 023 2024 Discontinued Zoster Vac Recomb Adjuvanted 50 MCG/0.5ML Intramuscular Suspension Reconstituted (Shingrix)Indicat ions:Need for shingles vaccine Inject 0.5 mL into a large muscle now and repeat dose in 60 to 180 days 1 Each 1 023 2024 Discontinued Folic Acid 1 MG Oral TabletIndications :Iron deficiency anemia, unspecified iron deficiency anemia type Take 1 Tablet by mouth in the morning. 90 Tablet 5 023 2024 Discontinued Sertraline HCl 25 MG Oral Tablet (Zoloft)Indicatio ns:Stressful life event affecting family Take 1 Tablet by mouth in the morning. 90 Tablet 1 023 2024 Discontinued busPIRone HCl 5 MG Oral Tablet (Buspar)Indicatio ns:CHAVO (generalized anxiety disorder) take 1 tablet by mouth twice a day if needed for AGITATION 60 Tablet 023 2024 Discontinued Lisinopril 5 MG Oral Tablet (Prinivil) Take 1 Tablet by mouth in the morning. In the morning.. 023 2024 Discontinued Spironolactone 25 MG Oral Tablet (Aldactone) 1 Tablet. 023 2024 Discontinued traZODone HCl 100 MG Oral Tablet (Desyrel) Take 1 Tablet by mouth at bedtime. 023 2024 Discontinued Furosemide 40 MG Oral Tablet (Lasix)Indication s:Heart failure, diastolic, due to HTN (HCC) Take 1 Tablet by mouth in the morning. 023 2024 Discontinued documented as of this encounter (statuses as of 11/03/2024) Active Problems Problem Noted Date Diagnosed Date Mitral valve insufficiency 03/16/2023 Atherosclerosis of [place] co ronary artery of [place] heart with angina pectoris 03/23/2022 Paroxysmal atrial [...] goal < 8% 09/16/2013 Coronary atherosclerosis of [place] coronary tuan ry 02/21/2012 S/P angioplasty with stent 02/21/2012 Overview (02/21/2012): Diagnonal #1. [facility] 02/16/12 Mixed dyslipidemia 01/05/2012 Tobacco use disorder 01/05/2012 Major depressive disorder 01/10/2011 Overview (04/17/2017): ICD-10 update of inactive term Thoracic and lumbosacral neuritis 08/05/2007 Lumbosacral spondylosis 08/05/2007 Spinal stenosis of lumbar re gion without neurogenic claudication 08/05/2007 HTN, goal below 140/90 documented as of this encounter (statuses as of 11/03/2024) Resolved Problems Problem Noted Date Diagnosed Date Resolved Date Major depressive disorder, s xochilt episode, moderate 03/23/2022 03/16/2023 Atherosclerosis of [place] co ronary artery of [place] heart with angina pectoris 09/07/20172018 Inflammation of sacroiliac joint 09/07/2017 08/06/2019 Exertional chest pain 08/25/20152017 Neck pain 09/30/2012 01/11/2018 Acute blood loss anemia 02/21/201212/24 Severe obesity with body mas s index (BMI) of 35.0 to 39.9 with serious comorbidity 01/05/2012 Overview (04/10/2018): bmi= 38.90 01/05/12 ICD-10 update of inactive diagnosis Myalgia 01/05/2012 01/11/2018 Encounter for examination fo r normal comparison and control in clinical research program 10/03/2011 10/03/2011 Overview (10/11/2020): Diagnosis changed due to Research Module. Go to Snapshot for study details. Encounter for examination fo r normal comparison and control in clinical research program 10/03/2011 02/27/2013 Overview (10/11/2020): Diagnosis changed due to Research Module. Go to Snapshot for study details. Special screening for malign ant neoplasms, colon 01/10/2011 01/11/2018 Dyslipidemia, goal to be determined 06/10/2009 01/05/2012 Overview (06/10/2009): Per Lipid Taxonomy. Lumbago 08/05/2007 01/11/2018 Disorder of intervertebral disc 08/05/2007 01/11/2018 ADVANCE DIRECTIVE INFORMATION 12/15/2005 08/24/2017 Overview (12/15/2005): No, Advance Directive brochure given to patient. Peptic ulcer 01/26/2003 01/11/2018 Mixed dyslipidemia 01/01/200306/10/ 9 Overview (06/10/2009): Per Lipid Taxonomy. Tobacco use disorder 01/01/2003 012 DIVERTICULOSIS OF COLON 11/04/200212/24 documented as of this encounter (statuses as of 11/03/2024) Immunizations Name Administration Dates Next Due COVID-19 mRNA, LNP-s, No Pre serve, 2-Dose Series (Moderna) 11/16/2020,10/19/2020 PPD 03/06/2007,02/27/2007 Pneumococcal Conjugate Vacc, 13 Valent (Prevnar) 12/01/2019 Pneumococcal Polysaccharide PPV23 (Pneumovax) 03/13/2012 Season Influenza, Quad, PF, Adjuvanted, 65+ Yrs, IM (FLUAD) 03/02/2020 Seasonal Influenza Vac., MDV , IM, 0.5 mL (Fluzone) 08/12/2014,04/29/2013,03/13/2012,03/25,07/08/2010,04/16/2008,05/03/20 07 Seasonal Influenza, PF, 6 M & above, IM , (FluLaval or Fluzone) 03/24/2019,03/06/2018,05/26/2017 03/06/2019 Seasonal Influenza, Quadriva lent Hd (Fluzone Hd) 03/23/2022,02/24/2021 Seasonal Influenza, Quadriva lent, No Preserve, IM 03/21/2016,06/01/2015 TD, Preservative Free 03/02/2008 TDAP (age 10 and older)(Boostrix) 10/05/2014 Varicella Zoster Vaccine Anthony lt (Zostavax) 07/30/2012 documented as of this encounter Social [...] in the Last Year Never true 01/29/2019 Comments No Sex and Gender Information Value Date Recorded Sex Assigned at Female 09/25/2018 10:25 AM EDT Legal Sex Female 5:15 AM EST Gender Identity Female 09/25/2018 10:25 AM EDT Sexual Orientation Straight 09/25/2018 10 :25 AM EDT 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 11/03/2024 Cardiology Follow Up Primary Plant Operations Manager: SIMON; previously seen by Dr. Villalobos (06/2022) Cardiac Problems: Paroxysmal atrial fibrillation with a chads Vasc score of 5 Significant lower extremity weakness with unremarkable exercise ABIs/ PVD Longstanding history of chronic back pain Coronary artery disease, stable Diabetes Diabetic polyneuropathy Ongoing tobacco abuse Nocturnal hypoxemia Emphysema History of significant anemia in the setting of colitis Dementia HPI: Amalia Baker is a 84 year old female presents for hospital discharge follow up. Patient was last seen by Cardiology 06/2022 and then lost to follow up. She presents today from [facility]. She was admitted to [facility] 08/24-08/29/2024 for severe sepsis s/t severe UTI and right leg wounds with elevated troponin/NSTEMI and A-fib with RVR. She is scheduled to see for a Right leg amputation with Dr. Daugherty next week. Assessment and Plan per cardiology at time of consultation 08/25/24 is outlined below (obtained from [place] Record): Assessment & Plan (1) Severe sepsis: (2) Elevated troponin: (3) Atrial fibrillation with rapid ventricular response: (4) NSTEMI (non-ST elevated myocardial infarction): Plan Patient admitted with altered mental status/lethargy secondary to sepsis secondary to UTI and LE wounds. NSTEMI noted on admission consistent with type II demand ischemic event in setting of acute illness. Continue 48 hours of IV heparin. Currently no symptoms to suggest angina. Echo with preserved LVEF and small apical wall motion abnormality. EF 55% Recommend conservative medical therapies for presumed ischemic heart disease. Continue ASA. Add statin - atorvastatin Resume beta laureano now that BP has improved - will resume lower dose metoprolol and increase as needed/tolerated. Prior home dose was metoprolol tartrate 100 mg BID. Start metoprolol 25 mg BID for now. Once she is tolerating beta laureano, will transition to Toprol. continue current treatment for sepsis, UTI and wound evaluation. Antibiotics per hospitalist. It appears she has severe PVD of the LE per duplex. Continue ASA and add statin. consider vascular evaluation Patient presents today with daughter. Offers no acute cardiac concerns. Patient denies any chest pain, pressure or palpitations. Denies any changes in breathing. Endorses ongoing right leg pain. BP well controlled. Compliant on all medication therapies as noted on her centre care med list. Daughter endorses appetite has been poor, but she has been very disinterested in the pureed diet offered to her. Family has brought in different items such as soft tacos, PB and J's etc and patient tolerates well. They supervise her while eating. REVIEW OF SYSTEMS: See HPI for pertinent positives. All others negative other than those noted in the HPI. CONSTITUTIONAL: No change in weight, No weakness, No fatigue and No fevers, No sweats or chills. PULMONARY: No cough, sputum, or hemoptysis, No wheezing, No shortness or breath and No recent change in breathing. CARDIOVASCULAR: No chest pain, No dyspnea on exertion, No edema, No palpitations and No syncope. GASTROINTESTINAL: No abdominal pain, No change in bowel habits, No significant heartburn, No nausea, No vomiting, No diarrhea, No constipation, No blood in stools or black tarry stools. No dysphagia. HEMATOLOGIC: No abnormal bleeding and No bruising. NEUROLOGICAL: Normal balance, No headaches and No weakness. Review of patient's allergies indicates: Allergen Reactions Bee Venom Life threating reaction Morphine And Codeine vomitting with all types of pain meds Current Outpatient Medications Medication Sig Dispense Refill metFORMIN HCl 500 MG Oral Tablet (Glucophage) Take 1 Tablet by mouth 2 times a day with morning andevening meals. 180 Tablet 3 Atorvastatin Calcium 80 MG Oral Tablet (Lipitor) Take 1 Tablet by mouth in the morning. (Patient taking differently: Take 0.5 Tablets by mouth in the morning.) 90 Tablet 3 aspirin 20.25 MG OR TABS 1 Tablet. Metoprolol Succinate ER 100 MG Oral Tablet Extended Release 24 Hour (Toprol XL) 1.5 tablet in the am by mouth and 1 tablet in the pm by mouth. 100 Tablet 0 Eliquis 2.5 MG Oral Tablet Take 1 Tablet by mouth in the morning and 1 Tablet before bedtime. Potassium Chloride ER 20 MEQ Oral Tablet Extended Release Take 1 Tablet by mouth in the morning. traMADol HCl 50 MG Oral Tablet (Ultram) Take 1 Tablet by mouth every 4 hours as needed. fentaNYL 25 MCG/HR Transdermal Patch 72 Hour (Duragesic) Place 1 Patch topically on the skin every 3 days. FLUoxetine HCl 20 MG Oral Capsule (PROzac) Take 1 Capsule by mouth in the morning. EPIPEN 0.3 MG/0.3ML IJ EVA One injection into thigh as needed for severe allergic reaction (Patient not taking: Reported on 11/03/2024) 1 Device 5 Cyanocobalamin (B-12-SL) [address] 1,000 mcg under the tongue daily. (Patient not taking: Reported on 11/03/2024) 90 Tab 3 Fluconazole 150 MG Oral Tablet (Diflucan) Take 1 Tablet by mouth once as needed. (Patient not taking: Reported on 11/03/2024) Diclofenac Sodium 1 % External Gel (Voltaren) Apply 2-4 grams to right foot four times daily as needed (Patient not taking: Reported on 11/03/2024) 150 g 3 Nitroglycerin 0.4 MG Sublingual Tablet Sublingual (Nitrostat) Place 1 Tablet under the tongue every5 minutes as needed for Pain, Chest. up to 3 doses in 15 minutes (Patient not taking: Reported on 11/03/2024) 25 Tablet 11 EpiPen 2-Gualberto 0.3 MG/0.3ML Injection Solution Auto-injector For a severe reaction: Place orange end against the outer thigh, press firmly, hold in place for 10 seconds and go to the Emergency room. (Patient not taking: Reported on 11/03/2024) 1 Each 3 No current facility-administered medications for this visit. Past Medical History: Diagnosis Date Benign neoplasm of colon 08/25/11 diverticulosis sigmoid colon, polyps x2 repeat in 5 years Coronary atherosclerosis of [place] coronary artery Diverticulosis of colon HTN, goal below 140/90 Peptic ulcer bleeding ulcer at 22y.o. 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 Ex . Social Needs Food Insecurity: No Food Insecurity (01/29/2019) Hunger Vital Sign Worried About Running Out of Food in the Last Year: Never true Ran Out of Food in the Last Year: Never true OBJECTIVE/PHYSICAL EXAMINATION: BP 114/64 | Pulse 74 General: No acute distress. A+Ox3. HEENT: Normocephalic. Atraumatic. PERRL. EOMI. Conjunctiva and sclera clear. NECK: No carotid bruits. No JVD. Carotid upstrokes are brisk. Heart: RRR. S1 and S2 noted. No murmur. No rubs or gallops. PMI non displaced. Lungs: Clear to auscultation. No wheezes.No rhonchi. No rales. Abdomen: Normal bowel sounds. Soft. Nontender. No masses or organomegaly. No abdominal bruits. Extremities: No edema. No clubbing or cyanosis. Pulses: radial=2/4, posterior tibial=2/4, dorsalis pedis = 2/4. NEURO: No focal deficits. PSYCH: Appropriate affect and insight. DATA Labs & Imaging Reviewed Below: Echocardiogram [facility] 08/25/2024 EKG 08/24/2024 [facility] (in the setting of sepsis) A-fib with RVR Rate 139 ASSESSMENT/PLAN: 84 year old year old female 1. Hospital discharge follow-up 2. Preop cardiovascular exam 3. 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 Paroxysmal atrial fibrillation (HCC) -Patient is stable from a cardiac perspective at today's visit. -She is scheduled to see Dr. Daugherty within the next week and pursue amputation of the RLE -A-fib now rate controlled. Asymptomatic and Euvolemic -Reviewed recent echocardiogram which shows preserved LVEF, but known severe mitral regurgitation. -per Ruiz Criteria, patient was counseled that she would be placed at a moderate risk for any adverse perioperative cardiovascular events associated with amputation surgery. Patient is on a good medication regimen and no other cardiac testing or interventions would further lower that risk. Patient states he understands and is accepting of that risk and wishes to proceed with surgery. -Discussed in detail with daughter that while her mother is at an elevated risk due to her cardiac medical history, that not pursuing amputation would most certainly increase her mortality risk -Patient may hold her Eliquis for 2 days prior to her surgery date and plan to resume the day aftersurgery -Please take metoprolol the AM of surgery with a sip of water. 5. Atherosclerosis of [place] coronary artery of [place] heart without angina pectoris 6. HTN, goal below 140/90 -Stable from a cardiac perspective -No new changes on echocardiogram -Continue Toprol xl, ASA, Atorvastatin -BP controlled 7. Nonrheumatic mitral valve regurgitation -Known severe MR as per echo, not a surgical candidate for valve replacement. -Monitor fluid status closely intra-op and post op DISPOSITION: Follow up 6 months or if symptoms worsen/fail to improve. All questions were answered to the patients satisfaction. Patient advised to report to ED with any and all emergencies. The patient agrees to the above plan and will call with additional questions or concerns. MAMADOU Graham Card[facility], [place] [address] [facility] [id number] I spent a total of 40 minutes on the date of service in preparation, delivery, and documentation ofthe care provided to Amalia Baker excluding any time spent in the performance of separately billedservices. This chart was completed in part utilizing [employer] Speech Voice Recognition Software. Grammatical errors, random word insertions, pronoun errors, and incomplete sentences are an occasional consequence of this system due to software limitations, ambient noise, and hardware issues. Any formal questions or concerns about the content, text, or information contained within the body of this dictation should be directly addressed to the provider for clarification. documented in this encounter Nursing Notes * Luma Westfall CMA - 11/03/2024 2:23 PM EDT Examination Room:7 Name: Amalia Baker Date of : (1940) Reason for Visit:HD Interim Hospitalization(s):august Problems/Concerns: denied Chest Pain/SOB: denied My [facility] is a way you can talk to your provider online through e-mail. Would you like to sign up? I can activate it for you? ALREADY ACTIVE Patient was instructed to not get up on the exam table until directed and assisted by their provider; patient is to remain seated in the chair/ wheelchair/ exam table for fall prevention and safety reasons. Patient is aware to have assistance to step down off exam table with personnel. Patient voiced full comprehension of instructions. documented in this encounter Plan of Treatment Upcoming Encounters Date Type Department Care Team (Late st Contact Info) Description 05/14/2025 2:00 PM EST Office Visit Cardiology, [facility] [address] [place] [id number] Crissy Redmond CRNP [address] [place] [address] Scheduled Procedures Name Priority Associated Diagnoses Date/Ti me COLONOSCOPY FLEXIBLE PROXIMAL DIAGNOSTIC Recall Gastrointestinal hemorrhage with melena History of colon polyps ESOPHAGOGASTRODUODENOSCOPY ( EGD), FLEXIBLE, TRANSORAL, DIAGNOSTIC Recall Gastrointestinal hemorrhage with melena History of colon polyps Health Maintenance Due Date Last Done Comments Depression Monitoring 1954 Alpha-1 Antitrypsin 1960 CKD PHOS USE SMARTSET 27412 1960 O2 ASSESSMENT COMPLETED IN PAST YEAR FOR COPD 1960 Adult Wellness Visit 2008 Zoster Vaccines (2 of 3) 09/24/2012 07/30/2012 DISCUSS TOBACCO CESSATION (REFER TO SMARTSET #3291) 06/01/2016 06/01/2015 (Discussed) DXA Scan 07/18/2018 07/18/2011, 07/18/2011 *COPD SEVERITY VERIFIED BY PFT 02/01/2019 Albumin/Creatinine Ratio 11/18/2022 022, 08/24/2017, 10/30/2016, Additional history exists Colonoscopy 08/02/2023 08/02/2018, 01/2019, 08/25/2011 Diabetic Foot Exam 08/02/2023 08/02/2022, 0 07/21/2021, 10/05/2020, Additional history exists HbA1c 10/12/2023 04/12/2023, 07/0 08/2022, 08/02/2022, Additional history exists GFR 12/04/2023 06/04/2023, 03/25, 12/25/2022, Additional history exists COVID-19 Vaccine ( - season) 2024 11/16/2020, 10/19/2020 CKD HGB USE SMARTSET 66768 04/12/202404/12, 08/02/2022, 11/18/2021, Additional history exists DTap/Tdap Vaccines (2 - Td or Tdap) 10/05/2024 10/05/2014, 03/02/2008 Influenza Vaccine (FLU shot) (Season Ended) 2025 03/23/2022, 02/24/2021, 03/02/2020, Additional history exists Diabetic Eye Exam 05/14/2025 05/14/2024, , 05/29/2022, Additional history exists RETIRED - COLONOSCOPY-EVERY 5 YRS AGES 18-100 Discontinued 08/02/2018, 08/02/2018, 08/25/2011 Pneumococcal Vaccine: 50+ Years Completed 12/01/2019, 03/13/2012 EKG Completed 06/04/2023, 07/08/2022, 03/02/2022, Additional history exists HPV (Gardasil) Vaccine Aged Out No lo nger eligible based on patient's age to complete this topic Hepatitis B Vaccine Aged Out No longe r eligible based on patient's age to complete this topic MENINGOCOCCAL (MENACTRA/MENVEO) Aged Out No longer eligible based on patient's age to complete this topic Meningitis B Vaccine (Bexsero/Trumemba) Aged Out No longer eligible based on patient's age to complete this topic documented as of this encounter Medical Devices Not on filedocumented as of this encounter Visit Diagnoses Diagnosis Hospital discharge follow-up- Primary Other follow-up examination Preop cardiovascular exam Pre-operative cardiovascular examination 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
--- OUTSIDE RECORDS SUMMARY | 2024-11-10 09:27 | External Medical Summary | Continuity of Care Document ---
Author Name Unknown Organization [facility] [address] [facility] Address [address] [place], [place] [id number] Care Team Providers Care Bilingual Administrative Assistant Name Role Phone Larry Bran Primary Care Physician [phone] [id number] Date(s): 10/27/24 - 10/27/24 [facility] [address], [address] [place] [address] [phone] Encounter Diagnosis Atherosclerosis of [place] arteries of extremities with rest pain, right leg (Discharge Diagnosis) - 10/27/24 Discharge Disposition: Home or Self Care Attending Physician: MD Dat, Michoacano Le Referring Physician: MD Lm, Enoch Brock Encounter Type: Clinic Allergies, Adverse Reactions, Alerts Substance Criticality Severity Reaction Reaction Severity Status codeine Active Percodan Active Vicodin Active Percocet Activ e Medications acetaminophen-hydrocodone 325 mg-5 mg oral tablet Start: 10/27/24 2:29:00 PM EDT, 1 tab, PO, q6h, Refills: 0, PRN: as needed for pain Start Date: 10/27/24 Status: Ordered Repeat number: 1 atorvastatin 40 mg oral tablet Start: 10/27/24 2:29:00 PM EDT, 1 tab, PO, Daily Start Date: 10/27/24 Status: Ordered Repeat number: 1 Eliquis 2.5 mg oral tablet Start: 10/27/24 2:29:00 PM EDT, 1 tab, PO, bid Start Date: 10/27/24 Status: Ordered Repeat number: 1 EpiPen 2-Gualberto 0.3 mg injectable kit Start: 10/27/24 2:32:00 PM EDT, 0.3 mg =, IM, ONCE, PRN: as needed for anaphylaxis Start Date: 10/27/24 Status: Ordered Repeat number: 1 fentaNYL 25 mcg/hr transdermal film, extended release Start: 10/27/24 2:29:00 PM EDT, 1 patch, topical, q72h, Refills: 0 Start Date: 10/27/24 Status: Ordered Repeat number: 1 FLUoxetine 20 mg oral capsule Start: 10/27/24 2:30:00 PM EDT, 1 cap, PO, Daily Start Date: 10/27/24 Status: Ordered Repeat number: 1 metFORMIN 1000 mg oral tablet Start: 10/27/24 2:30:00 PM EDT, 1 tab, PO, bid Start Date: 10/27/24 Status: Ordered Repeat number: 1 Metoprolol Succinate ER 100 mg oral tablet, extended release Start: 10/27/24 2:30:00 PM EDT, 1 tab, PO, bid Start Date: 10/27/24 Status: Ordered Repeat number: 1 mupirocin 2% topical ointment Start: 10/27/24 2:29:00 PM EDT, 1 appl, topical, tid Start Date: 10/27/24 Status: Ordered Repeat number: 1 nystatin 100,000 units/g topical powder Start: 10/27/24 2:29:00 PM EDT Start Date: 10/27/24 Status: Ordered Repeat number: 1 Potassium Chloride (Zso-Xbja-Lwb M20) 20 mEq oral tablet, extended release Start: 10/27/24 2:30:00 PM EDT, 1 tab, PO, Daily Start Date: 10/27/24 Status: Ordered Repeat number: 1 Senna Plus 50 mg-8.6 mg oral tablet Start: 10/27/24 2:35:00 PM EDT, 1 tab, PO, Daily Start Date: 10/27/24 Status: Ordered Repeat number: 1 traMADol 50 mg oral tablet Start: 10/27/24 2:36:00 PM EDT, 1 tab, PO, q4h, PRN: as needed for pain Start Date: 10/27/24 Status: Ordered Repeat number: 1 traZODone 100 mg oral tablet Start: 10/27/24 2:30:00 PM EDT, 1 tab, PO, qhs Start Date: 10/27/24 Status: Ordered Repeat number: 1 Voltaren 1% topical gel Start: 10/27/24 2:38:00 PM EDT, 1 appl, topical, qid, PRN: Pain Start Date: 10/27/24 Status: Ordered Repeat number: 1 Mental Status 10/27/24 Barriers to Learning one year None evide nt Mandatory Health Literacy Documentation Yes Health Literacy Communication Barriers N ever Primary Language Paraguayan Problem List Condition Confirmation Course Effective Dates Status Health St atus Informant (atherosclerosis) Confirmed Active Diagnosis Diagnosis Type Effective Dates Health Status Clinical Service Informant Atherosclerosis of [place] arteries of extremities with rest pain, right leg Discharge Diagnosis 10/27/24 Vital Signs Most recent to oldest [Reference Range]: 1 Heart Rate 95 bpm (10/27/24 2:21 PM) Blood Pressure 132/78mmHg (10/27/24 2:21 PM) Cuff Pulse Pressure 54 mmHg (10/27/24 2:21 PM) BP Location # 1 Left Arm (10/27/24 2:21 PM) Social History Social History Type Response Smoking Status Never smoked cigaret nell Sex Female Sex Representation Female (finding) Patient Care team information Care Team Personnel Name: MD Bran Boris Position: Referring DIRECT Member Role: Primary Care Provider Address: [address] [place] [address] Telecom: [phone] Care Team Related Persons Name: LEEANN HAYES Insurance Providers Guarantor name: JAKE HAYES Health Plan Information #: 1 Payer: CADEN Member Number: [id number] Policy Number: NA Group Number: [id number] Payer Identifier: [id number] Health Plan Information #: 2 Payer: [employer] Member Number: [id number] Policy Number: NA Group Number: [id number] Payer Identifier: [id number]
[2024-11-10 09:36] LABS: Basophils # (auto) 0.08 K/uL (0.00-0.20); Basophils % (auto) 0.6 %; Eosinophils # (auto) 0.39 K/uL (0.00-0.50); Hematocrit (blood only) 41.7 % (37.0-47.0); Hemoglobin 13.8 g/dl (12.0-16.0); Immature Granulocytes # (auto) 0.05 K/uL (0.01-0.20); Immature Granulocytes % (auto) 0.4 %; Lymphocytes # (auto) 1.97 K/uL (1.20-3.40); Lymphocytes % (auto) 15.1 %; Mean Corpuscular Hemoglobin 28.2 pg (25.0-34.0); Mean Corpuscular Hgb Conc 33.1 g/dL (32.0-36.0); Mean Corpuscular Volume 85.1 fL (80.0-100.0); Mean Platelet Volume 9.9 fL (9.4-12.4); Monocytes % (auto) 7.7 %; Neutrophils # (auto) 9.57 K/uL (1.40-6.50); Neutrophils % (auto) 73.2 %; Platelet Count 420 K/uL (130-400); RDW Standard Deviation 46.3 fL (36.4-46.3); White Blood Count 13.06 K/ul (4.8-10.8)
[2024-11-10 09:44] LABS: INR 1.1 (0.9-1.1); Partial Thromboplastin Time 28 Seconds (21-31); Prothrombin Time 11.8 Seconds (9.0-12.0)
--- NOTE | 2024-11-10 09:49 | XRay Report ---
XR chest 1V not portable CLINICAL HISTORY: SDS,preop COMPARISON STUDY: 09/11/2024 and 05/26/2023 FINDINGS: Stable cardiomegaly without pulmonary vascular congestion. Stable prominence of the right h ilum. No consolidation or pleural effusion. No pneumothorax. IMPRESSION: No acute findings. ACT 112: Negative or not required by law. Electronically signed by: Alan Yip M.D. 11/10/2024 9:48 AM
--- NOTE | 2024-11-10 09:50 | XRay Report ---
XR knee RT 1 or 2V routine CLINICAL HISTORY: M24.561 - Contracture, right knee COMPARISON: None FINDINGS: The right knee is held in flexion on all views consistent with given history of contractur e. No acute fracture or dislocation seen. There are atherosclerotic calcifications. There are minimal degenerative changes. IMPRESSION: Right knee contracture. ACT 112: Negative or not required by law. Electronically signed by: Alan Yip M.D. 11/10/2024 9:49 AM
--- NOTE | 2024-11-10 09:52 | History & Physical Report ---
Date of Service November 10, 2024 History of Present Illness Primary Care Provider: Amparo Rich DO October 27, 2024 Name: JAKE BAKER Patient Number: [id number] : 1940 Date of Service: 10/27/[address] Pandya, We had the pleasure of seeing Ms. Baker in our vascular surgery clinic today. As you know, she is an 84 year old F with history of chronic limb threatening ischemia (CLTI) of right foot with nonhealing wounds of the heel who was seen as a consult at [facility] recently presents for follow up. Patient has been having significant pain of her right lower extremity which has been poorly controlled with narcotics. She also has numbness of her right lower extremity compared to the left. She has multiple nonhealing wounds of the right heel, which have remained stable since patient was last evaluated while inpatient. These have a dry eschar over them and have not had surrounding erythema or drainage. She is with her daughter who denies any knowledge of fevers, chills or recent illness related to the wounds. Patient has contracture of the right knee and had been recommended an amputation at the time of her last evaluation. She follows up with Dr Turner from podiatry. Of note, patient is on Eliquis for her history of Afib. She has history of Alzheimer disease and most of the history was from her daughter, present during visit. Past medical history: CAD, NSTEMI, GERD, HTN, HLD, lumbosacral spondylosis, depression, nocturnal hypoxemia, DJD multiple joints, peptic ulcer disease, chronic HFpEF, T2DM with polyneuropathy, kidney disease (unspecified). Past surgical history: Bilateral cataracts, colonoscopy, cardiac cath with PCI, hysterectomy, R rotator cuff repair, tonsillectomy Physical Exam: General: No acute distress. Cardiovascular: HR 95, irregularly irregular. BP 132/78. Pulmonary: No increased work of breathing on RA, SpO2 98% GI: Soft, nontender, nondistended. Ext: Warm bilateral upper and lower extremities. Unable to palpate right femoral pulse as patient is contracted at the knee. However, there is a multiphasic femoral Doppler signal present. There is numbness of the right lower extremity to about the level of the knee compared to the left lower extremity. Unable to straighten out right knee from contracture of the right knee. There is a faint, monophasic AT signal on the right foot. There are multiple wounds on the right heel with dry eschar on them. No surrounding erythema, purulence or drainage. They are not malodorous. There is no discoloration of the foot. There is no fluctuance under or around the wounds. The left lower extremity has monophasic AT and PT signals present (AT stronger than PT). Sensation is preserved on the LLE and she can dorsiflex/plantarflex the ankle. There are no visible wounds on the left lower extremity. Neuro: Awake, alert, baseline Alzheimer's dementia. Can answer questions appropriately intermittently. Patient has no new imaging for today's visit. She has prior imaging from the time she was seen as a consult. Assessment/Plan: 1. Right lower extremity CLTI with tissue loss of right heel and rest pain Patient was recently seen as a consult for right lower extremity CLTI with tissue loss of the heel as well as rest pain. She continues to have significant pain of the right lower extremity that is poorly controlled with fentanyl patch. Daughter accompanies her during her visit today and provided most of the history. Patient continues to have significant pain and the wounds have failed to heal. Given her contracture of the right knee and significant peripheral artery disease, patient will be unlikely to heal the wounds. We recommend a right above the knee amputation in the setting of these wounds. We discussed with her daughter that the contracture precludes her from any other vascular reconstruction (i.e, bypass or endovascular intervention) as it will likely be unsuccessful given the patient is nonambulatory and bedbound. Daughter (POAlejandro) is agreeable to above knee amputation if that is what she needs but would like to d iscuss with her brother/sisters first. She understands that if patient becomes septic from the wounds, this would be an indication for emergent need for amputation and it would become a life over limb situation. Daughter (POA) understand this. They know to reach out earlier if patient develops any fever, chills or systemic symptoms concerning for infection. Daughter understands the risks of watching the wound and not performing amputation including infection, and progression of infection leading to sepsis and/or , need for more emergent surgery. All questions answered. Thank you for allowing us to participate in the care of this patient. Please do not hesitate to reach out with additional questions/concerns. I saw and evaluated the patient. Discussed with the resident and agree with the resident's findings and plan as documented in the resident's note. I have personally spent__35___ minutes performing [id number]-[id number] and fvq-[id number]-bk-[id number] activities on this date of service. Activities Include: _x_ review of the medical record _x_ obtaining a history _x_ physical exam/evaluation __ review labs __ review radiology reports x__ counseling/educating patient/family/caregiver __ discussion/referral to other healthcare professional x__ documenting care in the medical record __ independent interpretation of results __ communication of results to patient/family/caregiver __ coordination of care Signature Line Electronic Signature on File CC: Anoop Turner DPM [facility] [id number] [facility] [id number] * Yvrose Espinoza MD Author Signature Dt/Tm: 10/27/2024 03:04 PM Resident, Division of Vascular Surgery Electronically Reviewed/Signed by: Michoacano Daugherty MD Cosigner Signature Dt/Tm: 10/27/2024 03:11 PM Residential Solar Consultant Robert Danielle [facility] [place], [address] [place] [address] RV Result Type: .Outpt Ltr Date of Service: October 27, 2024 14:44 EDT Authorization Status: Final Author or Import Date: Gwendolyn Espinoza MD, Yvrose on October 27, 2024 14:44 EDT Verified By: MD Daugherty Eugene J on October 27, 2024 15:11 EDT Encounter info: [id number], [place] [id number], Clinic, 10/27/2024 - 10/27/2024 Allergies Allergy/AdvReac Type Severity Reaction Status Date / Time codeine Allergy Mild SICK Verified 11/10/24 09:42 propoxyphene Allergy Mild SICK Verified 11/10/24 09:42 BEE STING Allergy Severe Anaphylaxis Uncoded 11/10/24 09:42 Home Medications Medication Instructions Recorded Confirmed Type trazodone 100 mg tablet 100 mg PO HS 05/26/23 11/10/24 History acetaminophen 325 mg tablet 650 mg PO QID PRN Pain 08/24/24 11/10/24 History aspirin 81 mg chewable tablet 81 mg PO DAILY 08/24/24 11/10/24 History bisacodyl 10 mg rectal suppository 10 mg AK DAILY PRN Constipation 08/24/24 11/10/24 History (Dulcolax (bisacodyl)) epinephrine 0.3 mg/0.3 mL 0.3 mg IM Q4H PRN ALLERGEY 08/24/24 11/10/24 History injection, auto-injector fluoxetine 20 mg capsule 20 mg PO DAILY 08/24/24 11/10/24 History magnesium hydroxide 400 mg/5 mL 30 ml PO DAILY PRN Constipation 08/24/24 11/10/24 History oral suspension (Milk of Magnesia) metformin 1,000 mg tablet 1,000 mg PO BID 08/24/24 11/10/24 History protein supplement 1 ea PO BID 08/24/24 11/10/24 History sennosides 8.6 mg-docusate sodium 1 tab-cap PO BID Constipation 08/24/24 11/10/24 History 50 mg tablet (Senna with Docusate Sodium) sodium phosphates 19 gram-7 118 ml AK DAILY PRN Constipation 08/24/24 11/10/24 History gram/118 mL enema (Fleet Enema) apixaban 2.5 mg tablet (Eliquis) 2.5 mg PO BID #60 tabs 08/29/24 11/10/24 Rx atorvastatin 40 mg tablet 40 mg PO QAM #30 tabs 08/29/24 11/10/24 Rx metoprolol succinate 50 mg 100 mg (2 x 50 mg) PO BID #60 tabs 08/29/24 11/10/24 Rx tablet,extended release 24 hr potassium chloride 20 mEq 20 meq PO DAILY #3 tabs 08/29/24 11/10/24 Rx tablet,extended release diclofenac sodium 1 % topical gel 4 g topical QID 10/29/24 11/10/24 History fentanyl 25 mcg/hr transdermal 1 patch transdermal Q72H 10/29/24 11/10/24 History patch hydrocodone 5 mg-acetaminophen 325 1 - 2 tab PO Q6H PRN Pain 10/29/24 11/10/24 History mg tablet menthol 0.44 %-zinc oxide 20.6 % 1 applic topical TID 10/29/24 11/10/24 History topical ointment nystatin 100,000 unit/gram topical 1 applic topical DAILY 10/29/24 11/10/24 History powder Past Med/Surg History Problem List (Updated 11/10/24 @ 09:22 by Amy Munoz RN) Encounter for pre-operative examination Peripheral arterial disease Pressure ulcer of right heel, stage 3 Other specified peripheral vascular diseases NSTEMI (non-ST elevated myocardial infarction) Non-healing wound of right heel Weakness generalized Chronic pain Chronic heart failure with preserved ejection fraction (HFpEF) ASCVD (arteriosclerotic cardiovascular disease) Major depressive disorder CKD (chronic kidney disease), stage III Diabetic polyneuropathy associated with type 2 diabetes mellitus Centrilobular emphysema Morbid obesity SOB (shortness of breath) (Acute) Mitral regurgitation Atrial fibrillation with RVR Diverticulitis of sigmoid colon (Acute) PUD (peptic ulcer disease) Symptomatic anemia (Acute) Smoker Obesity CAD (coronary artery disease) S/p PCI with BMS to D1 in 2011 Diabetes mellitus, type 2 Hypertension Medical History (Updated 11/10/24 @ 09:22 by Amy Munoz RN) PVD (peripheral vascular disease) History of UTI Sacral decubitus ulcer History of recent hospitalization (08/2024) @ [facility]--Admitted with sepsis, diagnosed with NSTEMI demand Type II event in setting of acute illness and afib RVR with non compliance with oral metoprolol at home Non-healing wound of right heel Major depressive disorder History of diverticulitis CAD (coronary artery disease) S/p PCI with BMS to D1 in 2011 Unspecified atrial fibrillation Diabetes mellitus, type 2 Dementia Restlessness and agitation retirement resident Weakness Lumbosacral spondylosis Atrial flutter with rapid ventricular response CHF (congestive heart failure) diastolic per [place] record Nocturnal hypoxemia Per records COPD (chronic obstructive pulmonary disease) Per records Osteoarthritis History of kidney stones GERD (gastroesophageal reflux disease) Hyperlipidemia Surgical History History of cardioversion (10/12/20) @ [facility] S/P angioplasty with stent History of cystoscopy History of colonoscopy History of hysterectomy History of repair of rotator cuff RT History of tooth extraction History of tonsillectomy and adenoidectomy History of cataract surgery RT/LEFT History of heart artery stent 1 STENT PLACED to D1 in 2011 Family History Son Family history of diabetes mellitus Other No family history of adverse response to anesthesia Social History Smoking Status: Unknown if ever smoked Second Hand Exposure: No; Do You Dip or Chew Tobacco: No; Tobacco Cessation Education Requested by Patient: No Preferred Language: Ukrainian Communication Ability: Impaired Communication Ability Comment: pt has dementia/NH states someone will be w pt to sign consents Toy Assembler Wood Required: No Beliefs That Will Affect Care: None Current Living Situation: Alf Current Living Situation Comment: [facility] Assistive Devices: Denture - Upper and Wheelchair Results & Data Vital Signs (Past 12 Hours) Vital Signs Temp Pulse Resp BP Pulse Ox O2 Del Method 11/10/24 09:25 37.0 C 106 H 20 147/101 H 95 Room Air
[2024-11-10 09:57] LABS: BUN Creatinine Ratio 19.4 (10-20); Calcium 10.3 mg/dl (8.6-10.3); Potassium 4.6 mmol/L (3.5-5.1)
--- NOTE | 2024-11-10 10:02 | History & Physical Bridge Note ---
Date of Service November 10, 2024 History & Physical Bridge Note I have examined the patient, reviewed the History & Physical and in the interval since the performance of the History & Physical I have noted the following changes of clinical significance: no changes noted
[2024-11-10] MEDS: LACTATED RINGER'S 1,000 ML IV SCH (10:17)
--- NOTE | 2024-11-10 10:33 | Communication Note ---
Date of Service: November 10, 2024 MIKE echavarria/ GRISELDA @ 119
[2024-11-10] MEDS ORDERED: fentaNYL citrate PF 100 MCG/2 ML VIAL ONE ×2 (10:42→11:50)
[2024-11-10] MEDS ORDERED: ETOMIDATE 2 MG/ML 20 ML VIAL IV ONE (10:43)
[2024-11-10] MEDS ORDERED: SUCCINYLCHOLINE CHLORIDE 20 MG/ML 10 ML VIAL IV ONE (11:16)
[2024-11-10] MEDS ORDERED: METOPROLOL TARTRATE 1 MG/ML VIAL IV ONE (11:16)
[2024-11-10] MEDS ORDERED: ESMOLOL HCL INJ 10 MG/ML 10ML VIAL IV ONE (11:16)
[2024-11-10] MEDS: ceFAZolin 2000MG 2,000 MG/15 ML SYR IV SCH ×2 (11:34→20:18)
--- NOTE | 2024-11-10 11:43 | Electrocardiogram Report ---
Test Reason : Blood Pressure : */* mmHG Vent. Rate : 119 BPM Atrial Rate : 59 BPM P-R Int : * ms QRS Dur : 66 ms QT Int : 306 ms P-R-T Axes : * 30 -42 degrees QTcB Int : 430 ms Poor data quality, interpretation may be adversely affected Atrial fibrillation with rapid ventricular response Low voltage QRS Nonspecific ST and T wave abnormality Abnormal ECG When compared with ECG of 24-Aug-2024 16:59, No significant change was found Confirmed by Adam Dang ([id number]) on 11/10/2024 11:43:01 AM Referred By: Michoacano Daugherty Confirmed By: Adam Dang
[2024-11-10] MEDS ORDERED: CISATRACURIUM BESYLATE IV SOLN 2 MG/ML 10 ML VIAL IV ONE (11:49)
--- NOTE | 2024-11-10 12:11 | Post Operative Brief Note ---
Immediate Post Op Note Date of Surgery November 10, 2024 Pre & Post Diagnosis Operation Date: 11/10/24 10:10 Pre-Op Diagnosis: Right lower extremity chronic limb threatening ischemia (CLTI) with tissue loss of right heel and rest pain Post-Op Diagnosis: Right lower extremity chronic limb threatening ischemia (CLTI) with tissue loss of right heel and rest pain I identified the patient and participated in the time-out.: Yes Procedure Operation Date: 11/10/24 10:10 Actual Procedures p Right Above Knee Amputation(Right) - Michoacano Daugherty MD Surgeon Michoacano Daugherty MD Studio Producer MD Faizan Lilly,PAC Estimated Blood Loss 50 Findings Consistent with Post-Op Diagnosis Drains Lang Catheter Anesthesia Type General Complications none Disposition Accompanied Patient To Recovery: No Disposition: Recovery Room
[2024-11-10] MEDS ORDERED: PHENYLEPHRINE HCL 25 MG/250 ML NSS IV ONE (12:18)
[2024-11-10] MEDS ORDERED: GLYCOPYRROLATE 0.2 MG/ML VIAL ONE (12:19)
[2024-11-10] MEDS ORDERED: NEOSTIGMINE METHYLSULFATE 1 MG/ML 10ML VIAL ONE (12:19)
--- NOTE | 2024-11-10 12:38 | Operative Report ---
Post Operative Report Pre & Post Diagnosis Operation Date: 11/10/24 10:10 Pre-Op Diagnosis: Right lower extremity chronic limb threatening ischemia (CLTI) with tissue loss of right heel and rest pain Post-Op Diagnosis: Right lower extremity chronic limb threatening ischemia (CLTI) with tissue loss of right heel and rest pain I identified the patient and participated in the time-out.: Yes Procedure Operation Date: 11/10/24 10:10 Actual Procedures p Right Above Knee Amputation(Right) - Michoacano Daugherty MD Surgeon Michoacano Daugherty MD [employer] MD Faizan Hess,PAC Estimated Blood Loss 50 Findings See Below Right lower extremity tissue appeared viable at the level of the amputation and site was hemostatic before primary closure. Specimens Right above the knee amputation Anesthesia Type General Complications None Indications 84 year old female with history of critical limb ischemia with heel ulcer of the right lower extremity. Patient also has contracture of the right lower extremity. Given that patient has chronic contracture as well as severe peripheral artery disease making her non-ambulatory, she had no further revascularization options. After discussion of risks and benefits were discussed with patient and POA, consent was obtained to proceed with right above the knee amputation. Description of Procedure The patient was brought into the operating room and placed on the operating table in the supine position. Lines were placed by the anesthesia team and after adequate induction of anesthesia, the patient was intubated. A Lang was placed by nursing team. The right lower extremity was circumferentially prepped and draped in the usual sterile fashion. A timeout was performed confirming the patient's name, date of and procedure to be performed including laterality. We measured about 4 fingerbreadths proximal to the right knee and we marked our intended incision sites with an anterior and posterior flap configuration. An incision was made along these marked lines and continued through the subcutaneous tissue into the fascia circumferentially using electrocautery. The muscles in the anterior compartment were divided down to the femur using electrocautery, ensuring adequate hemostasis as we went through the layers. The femur was mobilized and a periosteal elevator used to clean off any remaining tissue off of the bone at the site where we intended to divide the bone. A Gigli saw was used to divide the bone, taking care not to injure any of the surrounding tissue and femoral vessels posteromedially. The superficial femoral artery and femoral vein were then identified and clamped individually. These were then divided and suture ligated using 2-0 silk stitches. The sciatic nerve was also identified, divided and ligated with 2-0 silk. It was then allowed to retract. We then continued to divide the muscles of the posterior and medial compartments using electrocautery. Additional bleeding sites on the muscl e bed were controlled with electrocautery. Hemostasis was obtained with gentle manual pressure. The bone edges were smoothed with a bone rasp. The marrow was packed with bone wax. The edges of the anterior muscles were divided to be about 2 fingerbreadths longer than the level of the femur and the posterior flap muscles to be about 3 fingerbreadths distal to the femur. The incision was irrigated copiously with antibiotic solution. After confirming adequate hemostasis, the anterior and posterior fascias were reapproximated to each other using interrupted 2-0 Vicryl sutures. Interrupted 3-0 Vicryl sutures were used to reapproximate the subcutaneous tissue. The skin was closed using kelly. A sterile, dry dressing was placed over the incision site. The patient was transferred to the recovery room in stable condition. Patient tolerated the procedure well. All counts were correct at the end of the procedure. Dr Daugherty was present for all critical portions of the case. I attest to the content of the Intraoperative Record and any orders documented therein. Any exceptions are noted below.
[2024-11-10] MEDS ORDERED: ATROPINE SULFATE 0.1 MG/ML 10ML SYR IV PRN (12:49)
[2024-11-10] MEDS ORDERED: PROMETHAZINE HCL 6.25 MG in SODIUM CHLORIDE 0.9% 50 ML IV PRN (12:49)
[2024-11-10] MEDS ORDERED: LABETALOL HCL IV 5 MG/ML 20ML IV PRN (12:49)
[2024-11-10] MEDS ORDERED: fentaNYL citrate PF 100 MCG/2 ML VIAL IV PRN (12:49)
[2024-11-10] MEDS ORDERED: NALOXONE HCL 0.4 MG/1 ML VIAL/CARP IV PRN (12:49)
[2024-11-10] MEDS ORDERED: ePHEDrine sulfate 50 MG/ML AMP IV PRN (12:49)
--- NOTE | 2024-11-10 13:41 | Anesthesiology Progress Note ---
Date of Service November 10, 2024 Anesthesia Post Procedure Vital Signs Vital Signs: Temp Pulse Pulse Resp BP Pulse Ox O2 Del Method 11/10/24 13:25 36.4 C L 112 H 21 125/76 97 Nasal Cannula 11/10/24 13:15 108 H 18 114/94 95 Nasal Cannula 11/10/24 13:05 107 H 23 93/65 L 96 Oxymask 11/10/24 12:55 110 H 21 115/77 97 Oxymask 11/10/24 12:45 36.4 C L 107 H 17 152/96 H 97 Oxymask 11/10/24 09:25 37.0 C 106 H 20 147/101 H 95 Room Air O2 Flow Rate 11/10/24 13:25 2 11/10/24 13:15 2 11/10/24 13:05 2 11/10/24 12:55 6 11/10/24 12:45 6 11/10/24 09:25 Transfer of Care Handoff Completed per policy Notes Mental Status: alert / awake / arousable and participated in evaluation Patient Amnestic to Procedure: Yes Nausea / Vomiting: adequately controlled Pain: adequately controlled Airway Patency, RR, SpO2: stable & adequate BP & HR: stable & adequate and see Notes below (pt in A Fib chronically) Hydration State: stable & adequate Anesthetic Complications: no major complications apparent
[2024-11-10] MEDS ORDERED: MAGNESIUM HYDROXIDE SUSP 30 ML UDC PO PRN (14:34)
[2024-11-10] MEDS ORDERED: SOD PHOSPHATE/SOD BIPHOSPHATE ENEMA 132 ML BTL PR PRN (14:34)
[2024-11-10] MEDS ORDERED: ONDANSETRON INJ 2 MG/ML 2 ML VIAL IV PRN (14:34)
[2024-11-10] MEDS ORDERED: EPINEPHrine INJ 1 MG/ML AMP IM PRN (14:46)
[2024-11-10] MEDS: MENTHOL-ZINC OXIDE 360 APPLN/120 GM TUBE EXT SCH (15:15)
[2024-11-10] MEDS: MoRPHine SULFATE 4 MG/ML 1 ML CARP\\VIAL IV PRN (16:01)
[2024-11-10] MEDS: ONDANSETRON INJ 2 MG/ML 2 ML VIAL IV PRN (17:13)
[2024-11-10] MEDS: DOCUSATE SODIUM/SENNA 50/8.6MG TAB PO SCH (20:18)
[2024-11-10] MEDS: metFORMIN HCL 500 MG TAB PO SCH (20:19)
[2024-11-10] MEDS: traZODone HCL 100 MG TAB PO SCH (20:19)
[2024-11-10] MEDS: METOPROLOL SUCC 50MG EXT REL TAB PO SCH (20:20)
[2024-11-10] MEDS ORDERED: NON-FORMULARY MEDICATION (Protein Supplement Liquid) PO SCH (21:00)
[2024-11-11 08:05] LABS: Basophils # (auto) 0.04 K/uL (0.00-0.20); Basophils % (auto) 0.4 %; Eosinophils # (auto) 0.01 K/uL (0.00-0.50); Eosinophils % (auto) 0.1 %; Hematocrit (blood only) 35.1 % (37.0-47.0); Hemoglobin 11.7 g/dl (12.0-16.0); Immature Granulocytes # (auto) 0.05 K/uL (0.01-0.20); Immature Granulocytes % (auto) 0.5 %; Lymphocytes # (auto) 1.26 K/uL (1.20-3.40); Lymphocytes % (auto) 12.1 %; Mean Corpuscular Hgb Conc 33.3 g/dL (32.0-36.0); Mean Platelet Volume 9.9 fL (9.4-12.4); Monocytes # (auto) 1.39 K/uL (0.11-0.59); Monocytes % (auto) 13.3 %; Neutrophils % (auto) 73.6 %; Platelet Count 308 K/uL (130-400); RDW Coefficient of Variation 15.3 % (11.5-14.5); RDW Standard Deviation 46.3 fL (36.4-46.3); Red Blood Count 4.18 M/uL (4.20-5.40); White Blood Count 10.45 K/ul (4.8-10.8)
[2024-11-11] MEDS: ASPIRIN 81 MG CHEW PO SCH (08:19)
[2024-11-11] MEDS: ATORVASTATIN 40 MG TAB PO SCH (08:20)
[2024-11-11] MEDS: APIXABAN 2.5 MG TAB PO SCH (08:20)
[2024-11-11] MEDS: FLUoxetine HCL 20 MG CAP PO SCH (08:20)
[2024-11-11] MEDS: POTASSIUM CHLORIDE CRTAB 20 MEQ TABCR PO SCH (08:24)
[2024-11-11] MEDS: HYDROCODONE/ACETAMOPHEN 5/325MG TAB PO PRN (09:19)
[2024-11-11] MEDS: NYSTATIN POWDER 15GM BTL EXT SCH (09:20)
--- NOTE | 2024-11-11 10:13 | Podiatry Consultation ---
Date of Consultation November 10, 2024 Assessment & Plan (1) Ingrowing nail: (2) Pain in left toe(s): (3) Peripheral arterial disease: Plan Patient examined and evaluated. - Left hallux debrided in length in slant back debridement along medial border. - Dressed with topical bacitracin and adhesive bandage. - Should have daily bandage changes with topical antibiotic ointment of choice. - Will continue to see every 9 weeks for nail care overall once she is discharged from hospital/rehab. - Thanks for the consult. Will sign off for now. History of Present Illness Reason for Consultation: Left great toe pain Attending Physician: Michoacano Daugherty MD History of Present Illness Patient seen at bedside status-post right lower extremity amputation. We have seen her in the past for right heel ulcerations and chronic osteomyelitis associated with significant rigid knee/hip contractures. With these non-healing wounds, continued infection, and peripheral arterial disease, she had an above knee amputation performed earlier today. On this admission, she was noted to also have left great toe pain associated with an ingrowing nail. Currently, she is awake and alert, but with diminished cognition associated with her baseline dementia and awaking from the anesthesia, still. Remainder of subjective is from chart review due to her cognitive status. Allergies Allergy/AdvReac Type Severity Reaction Status Date / Time codeine Allergy Mild SICK Verified 11/10/24 09:42 propoxyphene Allergy Mild SICK Verified 11/10/24 09:42 BEE STING Allergy Severe Anaphylaxis Uncoded 11/10/24 09:42 Home Medications Medication Instructions Recorded Confirmed Type trazodone 100 mg tablet 100 mg PO HS 05/26/23 11/10/24 History acetaminophen 325 mg tablet 650 mg PO QID PRN Pain 08/24/24 11/10/24 History aspirin 81 mg chewable tablet 81 mg PO DAILY 08/24/24 11/10/24 History bisacodyl 10 mg rectal suppository 10 mg NE DAILY PRN Constipation 08/24/24 11/10/24 History (Dulcolax (bisacodyl)) epinephrine 0.3 mg/0.3 mL 0.3 mg IM Q4H PRN ALLERGEY 08/24/24 11/10/24 History injection, auto-injector fluoxetine 20 mg capsule 20 mg PO DAILY 08/24/24 11/10/24 History magnesium hydroxide 400 mg/5 mL 30 ml PO DAILY PRN Constipation 08/24/24 11/10/24 History oral suspension (Milk of Magnesia) metformin 1,000 mg tablet 1,000 mg PO BID 08/24/24 11/10/24 History protein supplement 1 ea PO BID 08/24/24 11/10/24 History sennosides 8.6 mg-docusate sodium 1 tab-cap PO BID Constipation 08/24/24 11/10/24 History 50 mg tablet (Senna with Docusate Sodium) sodium phosphates 19 gram-7 118 ml NE DAILY PRN Constipation 08/24/24 11/10/24 History gram/118 mL enema (Fleet Enema) apixaban 2.5 mg tablet (Eliquis) 2.5 mg PO BID #60 tabs 08/29/24 11/10/24 Rx atorvastatin 40 mg tablet 40 mg PO QAM #30 tabs 08/29/24 11/10/24 Rx metoprolol succinate 50 mg 100 mg (2 x 50 mg) PO BID #60 tabs 08/29/24 11/10/24 Rx tablet,extended release 24 hr potassium chloride 20 mEq 20 meq PO DAILY #3 tabs 08/29/24 11/10/24 Rx tablet,extended release diclofenac sodium 1 % topical gel 4 g topical QID 10/29/24 11/10/24 History fentanyl 25 mcg/hr transdermal 1 patch transdermal Q72H 10/29/24 11/10/24 History patch hydrocodone 5 mg-acetaminophen 325 1 - 2 tab PO Q6H PRN Pain 10/29/24 11/10/24 History mg tablet menthol 0.44 %-zinc oxide 20.6 % 1 applic topical TID 10/29/24 11/10/24 History topical ointment nystatin 100,000 unit/gram topical 1 applic topical DAILY 10/29/24 11/10/24 History powder Patient History Medical History PVD (peripheral vascular disease) History of UTI Sacral decubitus ulcer History of recent hospitalization (08/2024) @ [facility]--Admitted with sepsis, diagnosed with NSTEMI demand Type II event in setting of acute illness and afib RVR with non compliance with oral metoprolol at home Non-healing wound of right heel Major depressive disorder History of diverticulitis CAD (coronary artery disease) S/p PCI with BMS to D1 in 2011 Unspecified atrial fibrillation Diabetes mellitus, type 2 Dementia Restlessness and agitation [facility] resident Weakness Lumbosacral spondylosis Atrial flutter with rapid ventricular response CHF (congestive heart failure) diastolic per [place] record Nocturnal hypoxemia Per records COPD (chronic obstructive pulmonary disease) Per records Osteoarthritis History of kidney stones GERD (gastroesophageal reflux disease) Hyperlipidemia Surgical History History of cardioversion (10/12/20) @ [facility] S/P angioplasty with stent History of cystoscopy History of colonoscopy History of hysterectomy History of repair of rotator cuff RT History of tooth extraction History of tonsillectomy and adenoidectomy History of cataract surgery RT/LEFT History of heart artery stent 1 STENT PLACED to D1 in 2011 Family History Son Family history of diabetes mellitus Other No family history of adverse response to anesthesia Social History Smoking Status: Unknown if ever smoked Second Hand Exposure: No; Do You Dip or Chew Tobacco: No; Tobacco Cessation Education Requested by Patient: No Preferred Language: Urdu Communication Ability: Impaired Communication Ability Comment: pt has dementia/NH states someone will be w pt to sign consents [employer]in 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 Dressing clean, dry, and intact. DP/PT pulses nonpalpable to left foot. Nails diffusely dystrophic, mycotic. Left hallux nail elongated with slight erythema, scant drainage consistent with paronychia to medial hallux. No ascending cellulitis noted. Pain noted on palpation and on debridement at bedside. Atrophic changes noted including thin skin, distal cooling, muscle atrophy, general weakness. Constitutional: + ill appearing, average body habitus an d + thin; no acute distress Eyes: PERRL, conjunctivae normal, anicteric sclerae ENMT: external ear and nose normal, oropharynx normal Mouth: + poor dentition Neck: trachea midline, no thyromegaly normal visual inspection Respiratory: normal respiratory effort; no respiratory distress Cardiovascular: Rate/Rhythm: regular rate and regular rhythm Vessels: + posterior tibial pulses abnormal and + dorsalis pedis pulses abnormal Extremities: normal capillary refill; no pedal edema Chest (Breasts): Chest: normal inspection of chest Gastrointestinal (Abdomen): Inspection/Auscultation: abdomen normal to inspection Percussion/Palpation: + abdomen tender and abdomen soft Musculoskeletal: no cyanosis or clubbing, extremities motor strength 5/5 Head/Neck/Chest: normocephalic and head atraumatic Extremities: + limited ROM of extremities and + amputation noted Hip: + deformity, + limited ROM of hip and + hip ROM with crepitation Skin: + dry skin, + nail abnormality, + nails discolored and + nails dystrophic; no erythema Trauma: no evidence of skin trauma and no contusion Neurologic: awake; no focal motor deficits Psychiatric: Orientation: alert and + guarded; + not oriented to place and + not oriented to time Insight: + limited insight Judgment: + limited judgement Results & Data Vital Signs (Past 12 Hours) Vital Signs Temp Pulse Resp BP Pulse Ox O2 Del Method O2 Flow Rate 11/11/24 07:48 36.9 C 93 H 16 100/70 97 Room Air 11/11/24 02:43 36.8 C 102 H 16 121/95 99 Nasal Cannula 2 11/10/24 22:54 36.9 C 108 H 16 118/83 99 Nasal Cannula 2
--- NOTE | 2024-11-11 11:43 | Surgery Progress Note ---
Date of Service November 11, 2024 Assessment & Plan (1) S/P above knee amputation: Plan: Pt POD #1 after RLE AKA. Doing well post op. Will remove dressing tomorrow and reeval for healing. Admission and Anticipated Discharge Date Admission Date: November 10, 2024 Subjective 84 yo f POD #1 after R AKA, seen in f/u today. Pt is confused and sleeping, states having some pain in RLE. No new complaints. Review of Systems Review of Systems: Unobtainable due to cognitive status Physical Exam Constitutional: WD/WN, vitals as above + disheveled, cooperative and comfortable; not in distress Respiratory: normal respiratory effort, lungs clear to auscultation Auscultation: + diminished lung sounds Cardiovascular: Rate/Rhythm: + irregularly irregular Vessels: posterior tibial pulses present (RLE AKA) and dorsalis pedis pulses present (RLE AKA); + abnormal peripheral pulses Extremities: normal capillary refill (to LLE, RLE AKA) Gastrointestinal (Abdomen): Inspection/Auscultation: abdomen normal to inspection and normal bowel sounds Percussion/Palpation: abdomen soft; abdomen nontender Musculoskeletal: no cyanosis or clubbing, extremities motor strength 5/5 Skin: no rashes, warm and dry + incision (RLE AKA site dressing in place, no shadowing.) Neurologic: moves all extremities and + confused (sleepy); no focal motor deficits Psychiatric: Orientation: oriented to person; + not oriented to place and + not oriented to time Affect: + flat affect Results & Data Vital Signs (Past 12 Hours) Vital Signs Temp Pulse Resp BP Pulse Ox O2 Del Method O2 Flow Rate 11/11/24 07:48 36.9 C 93 H 16 100/70 97 Room Air 11/11/24 02:43 36.8 C 102 H 16 121/95 99 Nasal Cannula 2
[2024-11-11] MEDS: SODIUM CHLORIDE 0.9% 500 ML IV SCH (17:07)
[2024-11-11] MEDS: D5W AND 1/2NSS 1,000 ML IV SCH (17:45)
[2024-11-11] MEDS ORDERED: DEXTROSE 50% 50 ML SYRINGE IV PRN (17:54)
[2024-11-11] MEDS ORDERED: GLUCAGON FOR INJ 1 MG VIAL SQ PRN (17:54)
[2024-11-11] MEDS ORDERED: GLUCOSE 40% GEL 15 GM TUBE PO PRN (17:54)
[2024-11-11] MEDS ORDERED: GLUCOSE 10 TAB/TUBE PO PRN (17:54)
[2024-11-11] MEDS ORDERED: CARBOHYDRATES FOR HYPOGLYCEMIA PO PRN (17:54)
--- NOTE | 2024-11-11 18:00 | Communication Note ---
Date of Service: November 11, 2024 Consulted to evaluate diabetes, postop AKA Home: metformin 1000 mg bid Currently on D5 1/2 NS - has diet order but described as lethargic in note Got 1000 mg metformin this AM. BGs under 200 Did not get steroids Plan: dc D5 as soon as taking adequate po q6h BG checks hold metformin for now PRN / premeal insulin - short acting - CF 40 : CR 13 - ordered Did not order long acting at this time - (weight based calculates to 10 bid but insulin naive so maybe start with half that if necessary) Will follow up tomorrow
[2024-11-11] MEDS: INSULIN ASPART PER UNIT CHARGE SC SCH (21:09)
[2024-11-12 07:36] VITALS: RESP 16
[2024-11-12 08:02] LABS: Anion Gap 5 (3-11); BUN Creatinine Ratio 18.1 (10-20); Blood Urea Nitrogen 21 mg/dl (6-23); Calcium 8.8 mg/dl (8.6-10.3); Carbon Dioxide 24 mmol/L (21-32); Chloride 106 mmol/L (98-107); Creatinine Clr Calc Pharmacy 26.7 ml/min; Glucose 192 mg/dl (70-99(Fasting)); Potassium 4.3 mmol/L (3.5-5.1); Sodium 135 mmol/L (136-145)
[2024-11-12 08:19] LABS: Alanine Aminotransferase < 3 U/L (7-52); Albumin Globulin Ratio 0.9 (0.9-2); Alkaline Phosphatase 46 U/L (34-104); Aspartate Aminotransferase 16 U/L (13-39); Bilirubin,Total 0.4 mg/dl (0.2-1.0); Globulin 3.3 gm/dl (2.5-4.0); Phosphorus 2.5 mg/dl (2.5-4.9); Total Protein 6.3 gm/dl (6.0-8.3)
--- NOTE | 2024-11-12 11:18 | Hospitalist Consultation ---
Date of Consultation November 12, 2024 Assessment & Plan (1) S/P above knee amputation: (2) Diabetes mellitus, type 2: (3) CKD (chronic kidney disease), stage III: (4) Chronic heart failure with preserved ejection fraction (HFpEF): (5) Chronic atrial fibrillation: (6) Hypertension: Plan 84-year-old female with past medical history significant for type 2 diabetes, diabetic polyneuropathy, dyslipidemia, COPD, tobacco use, nocturnal hypoxemia, CAD s/p stent, hypertension, paroxysmal atrial fibrillation, heart failure with preserved ejection fraction, mitral valve insufficiency, CKD stage III, history of vitamin B12 deficiency, depression, spinal stenosis. She presented for AKA w kia Daugherty on 11/10/24. Hospital medicine was consulted for diabetes management. #RLE chronic limb threatening ischemia - S/p right AKA on 11/[address] Daugherty Patient typically wears Fentanyl patch 25 mcg Q72H at home. Currently, primary team has [place] and IV Morphine ordered as needed. Recommend resuming Fentanyl patch and using additional pain meds as needed for breakthrough pain Management per primary team #Diabetes mellitus, type II Last A1c 10.6% in August 2024 Hold home metformin Continue Q6H BG checks, once patient is taking adequate oral intake, recommend ACHS BG checks Continue basal bolus insulin as ordered Pharmacy glycemic management consulted #Hypertension/dyslipidemia/CAD/HFpEF/Chronic atrial fibrillation Currently rate controlled and BP at target Last echo August 2024 with EF 50-55%, severe MR Has been getting D5W with 1/2 NSS at 125 ml/hr since last evening 11/11 - caution with fluids given history of heart failure - will decrease fluid rate to 80 ml/hr and recommend discontinuing once patient is taking adequate oral intake Continue Eliquis, aspirin, atorvastatin, metoprolol #Pocketing pills/food Patient is on pured diet at Center care secondary to pocketing Will change diet to pured texture and consult speech therapy for evaluation and any updated recommendations #CKD, stage III Creatinine at baseline Avoid nephrotoxic agents when possible #Depression Continue fluoxetine 20 mg daily, trazodone 100 mg HS Consulted speech therapy Consulted pharmacy glycemic management Reviewed outpatient records Hospital medicine will sign off at this time. Please reach out with any additional questions or concerns. Supervising Physician Co-Signing Physician Notes PA Supervision Note: I personally saw and examined the patient. I verified all padilla points and agree with JULEE Martínez with the following exceptions and/or additions: S-patient here recovering from RLE AKA. She is having pain at the stump that feels like a pressure. Denies abdominal pain or nausea; denies chest pain or shortness of breath. History and ROS otherwise reviewed as above O- Vitals reviewed Gen: AAOx1, NAD HEENT: Anicteric sclerae CV: Irregularly irregular, normal rate no mgr nl S1S2 Pulm: CTAB no wcr Ext: RLE AKA,dressing c/d/i Skin: No rashes, warm/dry BMP reviewed A/N-51-[id number]-old female here with right AKA. Hospitalist service consulted for medical management Pain control adjusted with increasing dose of hydrocodone on top of fentanyl patch. Pharmacy consulted for assistance with diabetes management Hospitalist service will sign off History of Present Illness Reason for Consultation: diabetes Requesting Physician: Michoacano Daugherty MD Attending Physician: Michoacano Daugherty MD History of Present Illness Patient seen and evaluated at bedside. She is pleasantly confused, only oriented to self. ROS difficult to complete secondary to baseline mentation, but she does report some RLE pain. Allergies Allergy/AdvReac Type Severity Reaction Status Date / Time codeine Allergy Mild SICK Verified 11/10/24 09:42 propoxyphene Allergy Mild SICK Verified 11/10/24 09:42 BEE STING Allergy Severe Anaphylaxis Uncoded 11/10/24 09:42 Home Medications Medication Instructions Recorded Confirmed Type trazodone 100 mg tablet 100 mg PO HS 05/26/23 11/10/24 History acetaminophen 325 mg tablet 650 mg PO QID PRN Pain 08/24/24 11/10/24 History aspirin 81 mg chewable tablet 81 mg PO DAILY 08/24/24 11/10/24 History bisacodyl 10 mg rectal suppository 10 mg MA DAILY PRN Constipation 08/24/24 11/10/24 History (Dulcolax (bisacodyl)) epinephrine 0.3 mg/0.3 mL 0.3 mg IM Q4H PRN ALLERGEY 08/24/24 11/10/24 History injection, auto-injector fluoxetine 20 mg capsule 20 mg PO DAILY 08/24/24 11/10/24 History magnesium hydroxide 400 mg/5 mL 30 ml PO DAILY PRN Constipation 08/24/24 11/10/24 History oral suspension (Milk of Magnesia) metformin 1,000 mg tablet 1,000 mg PO BID 08/24/24 11/10/24 History protein supplement 1 ea PO BID 08/24/24 11/10/24 History sennosides 8.6 mg-docusate sodium 1 tab-cap PO BID Constipation 08/24/24 11/10/24 History 50 mg tablet (Senna with Docusate Sodium) sodium phosphates 19 gram-7 118 ml MA DAILY PRN Constipation 08/24/24 11/10/24 History gram/118 mL enema (Fleet Enema) apixaban 2.5 mg tablet (Eliquis) 2.5 mg PO BID #60 tabs 08/29/24 11/10/24 Rx atorvastatin 40 mg tablet 40 mg PO QAM #30 tabs 08/29/24 11/10/24 Rx metoprolol succinate 50 mg 100 mg (2 x 50 mg) PO BID #60 tabs 08/29/24 11/10/24 Rx tablet,extended release 24 hr potassium chloride 20 mEq 20 meq PO DAILY #3 tabs 08/29/24 11/10/24 Rx tablet,extended release diclofenac sodium 1 % topical gel 4 g topical QID 10/29/24 11/10/24 History fentanyl 25 mcg/hr transdermal 1 patch transdermal Q72H 10/29/24 11/10/24 History patch hydrocodone 5 mg-acetaminophen 325 1 - 2 tab PO Q6H PRN Pain 10/29/24 11/10/24 History mg tablet menthol 0.44 %-zinc oxide 20.6 % 1 applic topical TID 10/29/24 11/10/24 History topical ointment nystatin 100,000 unit/gram topical 1 applic topical DAILY 10/29/24 11/10/24 History powder Patient History Medical History PVD (peripheral vascular disease) History of UTI Sacral decubitus ulcer History of recent hospitalization (08/2024) @ [facility]--Admitted with sepsis, diagnosed with NSTEMI demand Type II event in setting of acute illness and afib RVR with non compliance with oral metoprolol at home Non-healing wound of right heel Major depressive disorder History of diverticulitis CAD (coronary artery disease) S/p PCI with BMS to D1 in 2011 Unspecified atrial fibrillation Diabetes mellitus, type 2 Dementia Restlessness and agitation half-way resident Weakness Lumbosacral spondylosis Atrial flutter with rapid ventricular response CHF (congestive heart failure) diastolic per [place] record Nocturnal hypoxemia Per records COPD (chronic obstructive pulmonary disease) Per records Osteoarthritis History of kidney stones GERD (gastroesophageal reflux disease) Hyperlipidemia Surgical History History of cardioversion (10/12/20) @ [facility] S/P angioplasty with stent History of cystoscopy History of colonoscopy History of hysterectomy History of repair of rotator cuff RT History of tooth extraction History of tonsillectomy and adenoidectomy History of cataract surgery RT/LEFT History of heart artery stent 1 STENT PLACED to D1 in 2011 Family History Son Family history of diabetes mellitus Other No family history of adverse response to anesthesia Social History Smoking Status: Unknown if ever smoked Second Hand Exposure: No; Do You Dip or Chew Tobacco: No; Tobacco Cessation Education Requested by Patient: No Preferred Language: Japanese Communication Ability: Impaired Communication Ability Comment: pt has dementia/NH states someone will be w pt to sign consents Handbag Operator Required: No Beliefs That Will Affect Care: None Current Living Situation: [facility] Current Living Situation Comment: [place] [facility] Assistive Devices: Denture - Upper and Wheelchair Review of Systems Review of Systems: Unobtainable due to cognitive status Physical Exam Physical Exam: General: No acute distress, nondiaphoretic, well-developed, well-nourished. Cardiac: Irregular rhythm, rate controlled without murmurs gallops or rubs. Pulm: Clear to auscultation bilaterally without wheezes, rales or rhonchi. Normal respiratory effort. 96% on room air. Abdominal: Soft, nontender, nondistended. Bowel sounds present. Neuro: A&O x1 (self). No focal neurological deficits. Extremities: RLE with postop AKA dressing clean dry intact. LLE warm, no edema. Results & Data Results & Data Vital Signs (Past 12 Hours) Vital Signs Temp Pulse Pulse Resp BP Pulse Ox O2 Del Method 11/12/24 10:57 86 11/12/24 07:36 110 H 108 H 138/97 11/12/24 07:35 98.4 F 106 H 16 127/77 96 Room Air Laboratory Results Reviewed CMP PG Care Time/CCT Total # of Minutes Spent Total Time Spent with Patient: Total time spent is greater than 50% in coordination of care (as documented) at patient's floor/unit and/or counseling patient: Coding Level of Care Code 28658 IN/OBS CONSULT LVL 4,60M Diagnoses S/P above knee amputation Z89.619 Diabetes mellitus, type 2 E11.9 CKD (chronic kidney disease), stage III N18.30 Chronic heart failure with preserved ejection fraction (HFpEF) I50.32 Chronic atrial fibrillation I48.20 Primary hypertension I10 Hypertension type: primary hypertension (6) Hypertension Hypertension type: primary hypertension Qualified Code(s): I10 - Essential (primary) hypertension
[2024-11-12] MEDS: fentaNYL 25 MCG/HR TDSY TD SCH (15:05)
--- NOTE | 2024-11-12 15:08 | Surgery Progress Note ---
Date of Service November 12, 2024 Assessment & Plan (1) S/P above knee amputation: Plan: Pt POD #2 after RLE AKA. Incision doing well post op. Daughter requesting fentanyl patch be placed as she is on this at the [facility] for chronic back pain. Will d/c morphine and place 25mcg fentanyl patch with hydrocodone for breakthrough pain, for improved pain control. Admission and Anticipated Discharge Date Admission Date: November 10, 2024 Subjective 84 yo f POD #2 after R AKA, seen in f/u today. Pt is confused, similar to baseline. C/o chronic back pain and pain in RLE. No new complaints. Daughter is concerned that pt has not taken PO today. Review of Systems Review of Systems: Unobtainable due to cognitive status Physical Exam Constitutional: WD/WN, vitals as above + disheveled, cooperative and comfortable; not in distress Respiratory: normal respiratory effort, lungs clear to auscultation Auscultation: + diminished lung sounds Cardiovascular: Rate/Rhythm: + irregularly irregular Vessels: posterior tibial pulses present (RLE AKA) and dorsalis pedis pulses present (RLE AKA); + abnormal peripheral pulses Extremities: normal capillary refill (to LLE, RLE AKA) Gastrointestinal (Abdomen): Inspection/Auscultation: abdomen normal to inspection and normal bowel sounds Percussion/Palpation: abdomen soft; abdomen nontender Musculoskeletal: no cyanosis or clubbing, extremities motor strength 5/5 Skin: no rashes, warm and dry + incision (RLE AKA C/D/I kelly, tender. No erythema or necrosis) Neurologic: moves all extremities and + confused (sleepy); no focal motor deficits Psychiatric: Orientation: oriented to person; + not oriented to place and + not oriented to time Affect: + flat affect Results & Data Vital Signs (Past 12 Hours) Vital Signs Temp Pulse Pulse Resp BP Pulse Ox O2 Del Method 11/12/24 10:57 86 11/12/24 07:36 110 H 108 H 138/97 11/12/24 07:35 36.9 C 106 H 16 127/77 96 Room Air
[2024-11-12] MEDS ORDERED: PHARMACY GLYCEMIC MGMT CONSULT PRN (15:35)
[2024-11-12] MEDS: CHECK fentaNYL PATCH PLACEMENT SCH (17:02)
[2024-11-12] MEDS: HYDROCODONE/ACETAMOPHEN 5/325MG TAB PO PRN (20:39)
[2024-11-12] MEDS: LANTUS PER UNIT CHARGE SQ SCH (20:44)
[2024-11-13 07:36] VITALS: TEMP 97.9
[2024-11-13] MEDS: LANTUS PER UNIT CHARGE SQ SCH (08:20)
--- NOTE | 2024-11-13 12:32 | Pharmacy Report ---
Pharmacy Glycemic Short Note 2 - Date of Service November 13, 2024 - Glycemic Short BSG Results (Last 24 hours): 11/12/24 11/12/24 11/13/24 16:26 20:23 07:33 POC Glucose 143 H 159 H 168 H 11/13/24 11:39 POC Glucose 122 H OUTPATIENT ANTIDIABETIC REGIMEN: * Metformin 1 g PO BIDM HbA1c: 10.6% (08/25/24) ASSESSMENT: * MIKEL is an 84 year old female POD #3 s/p right above knee amputation * Pharmacy consulted yesterday (11/12/24) for glycemic management * Receiving dextrose-containing IV fluids @80 mL/hr * Blood sugars so far have been reasonable PLAN FOR INPATIENT GLYCEMIC CONTROL: * Hold outpatient oral diabetes medications * Basal insulin * Lantus 10 units SC daily (~0.2 unit/kg) * Bolus insulin * NovoLog per scale ACHS or Q6hrs while NPO * Goal Range: Low 120 mg/dL - High 160 mg/dL * Correction Factor: 35 mg/dL/unit * Nutritional / Prandial insulin per carb ratio of 1 unit per 12 grams CHO consumed
--- NOTE | 2024-11-13 14:08 | Surgery Progress Note ---
Date of Service November 13, 2024 Assessment & Plan (1) S/P above knee amputation: Plan: Pt POD #3 after RLE AKA. Incision doing well post op. Patient ready to d/c back to [place] Admission and Anticipated Discharge Date Admission Date: November 10, 2024 Subjective 84 yo f POD #3 after R AKA, seen in f/u today. Pt is confused but awake and alert, similar to baseline. Complaining of incisional pain Physical Exam Constitutional: WD/WN, vitals as above Respiratory: normal respiratory effort; no respiratory distress Cardiovascular: Rate/Rhythm: regular rate and regular rhythm Skin: + incision (dry and clean, edges viable) Neurologic: moves all extremities Psychiatric: Orientation: alert confused Results & Data Vital Signs (Past 12 Hours) Vital Signs Temp Pulse Resp BP BP Pulse Ox O2 Del Method 11/13/24 07:45 90 105/73 11/13/24 07:36 73/47 L 11/13/24 07:32 36.6 C 86 16 76/51 L 96 Room Air
[2024-11-13 14:43] VITALS: BP 116/77; PULSE 85; O2SAT 97
[2024-11-13] MEDS: HYDROCODONE/ACETAMOPHEN 5/325MG TAB PO PRN (14:44)
[2024-11-13] MEDS: bisacodyL 10 MG SUPP PR PRN (14:44)
== END 2024-11-13 15:29 | DRG 240 ==
LOC: ASU 08:49 → 3N 09:53

== ENCOUNTER 2025-01-10 15:38 | Observation (INO) ==
--- NOTE | 2025-01-10 15:49 | Emergency Department Note ---
Impression & Plan GIB (gastrointestinal bleeding), Chronic atrial fibrillation ED Provider Note NAME: JAKE HAYES AGE: 84 SEX: F : 1940 ARRIVES VIA: Ambulance INFORMANT: Patient, EMS ED PROVIDER(S): Adam Velasquez DO CHIEF COMPLAINT: Weakness HPI: The patient is an 84-year-old female who presented to the emergency department because of generalized weakness. The patient was noted to have a dark stool prior to arrival. She has a history of atrial fibrillation. The patient does take oral anticoagulants. The patient offers no complaints. She denies having any abdominal pain or chest pain. ROS: See above HPI for pertinent positives & negatives. A total of 10 systems reviewed and were otherwise negative. PAST MEDICAL HISTORY: See Below PAST SURGICAL HISTORY: See Below FAMILY HISTORY: See Below SOCIAL HISTORY: See Below HOME MEDICATIONS: See Below ALLERGIES: See Below VITALS: See Below PHYSICAL EXAMINATION: GENERAL: The patient is awake. The patient is interactive and does not appear to be uncomfortable. EYES: The conjunctivae are clear. The pupils are round and reactive. EARS, NOSE, MOUTH AND THROAT: The nose is without any evidence of any deformity. NECK: The neck is nontender and supple. RESPIRATORY: Normal respiratory effort is noted there is no evidence of wheezing rhonchi or rales CARDIOVASCULAR: Regular rate and rhythm noted there no murmurs rubs or gallops normal S1 normal S2. GASTROINTESTINAL: The abdomen is soft nondistended. There is no tenderness guarding or rigidity noted. Rectal exam revealed dark stool that was strongly heme positive. MUSCULOSKELETAL/EXTREMITIES: Right lower extremity amputation was noted. SKIN: Skin is warm and dry. NEUROLOGIC: Patient is awake and oriented person but not place or time. Strength was symmetric. MEDICAL DECISION MAKING: The patient is an 84-year-old female who presented to the emergency department for an evaluation of rectal bleeding. The patient has a history of oral anticoagulant use. She reportedly had dark stool prior to arrival but on my exam there did not appear to be melena. The stool was heme positive. I discussed the patient's laboratory and radiographic studies with her and her daughter. Given her findings as well as her oral anticoagulant use I discussed her condition with the on-call [facility] hospitalist. They have agreed to evaluate the patient in the emergency department. Triage Nursing notes reviewed. Prior medical records reviewed Vital Signs: reviewed and remarkable for hypotension. Differential diagnosis: Diverticulosis, AVM, coagulopathy, colitis, inflammatory bowel disease, malignancy, Lina-Balderas tear, esophagitis, peptic ulcer disease, variceal bleed, gastritis, epistaxis, fissure, hemorrhoids, as well as other pathologies. ER treatment provided: See below Diagnostics interpreted by me: ECG: EKG was obtained in the emergency department. My interpretation is atrial fibrillation at 105 bpm. No PVCs were noted. Nonspecific ST abnormalities were noted. This was compared to a tracing from November 10, 2024. No changes were noted. Cardiac Monitoring: An order was placed for continuous cardiac monitoring. The monitor shows a rate of 119 bpm with atrial fibrillation. Laboratory studies: As stated above and show below. Imaging studies: See below. Radiographic imaging was reviewed by myself Consultation(s): I discussed this case with Dr. De La Fuente who is on-call for the [facility] hospitalist group. Past Med/Surg History Problem List (Updated 01/10/25 @ 18:19 by Adam Velasquez DO) GIB (gastrointestinal bleeding) (Acute) Chronic atrial fibrillation (Acute) S/P above knee amputation Ingrowing nail Peripheral arterial disease Pressure ulcer of right heel, stage 3 Other specified peripheral vascular diseases NSTEMI (non-ST elevated myocardial infarction) Non-healing wound of right heel Weakness generalized Chronic pain Chronic heart failure with preserved ejection fraction (HFpEF) ASCVD (arteriosclerotic cardiovascular disease) Major depressive disorder CKD (chronic kidney disease), stage III Diabetic polyneuropathy associated with type 2 diabetes mellitus Centrilobular emphysema Morbid obesity SOB (shortness of breath) (Acute) Mitral regurgitation Atrial fibrillation with RVR Diverticulitis of sigmoid colon (Acute) PUD (peptic ulcer disease) Symptomatic anemia (Acute) Smoker Obesity CAD (coronary artery disease) S/p PCI with BMS to D1 in 2011 Diabetes mellitus, type 2 Hypertension Medical History PVD (peripheral vascular disease) History of UTI Sacral decubitus ulcer History of recent hospitalization (08/2024) @ [facility]--Admitted with sepsis, diagnosed with NSTEMI demand Type II event in setting of acute illness and afib RVR with non compliance with oral metoprolol at home Non-healing wound of right heel Major depressive disorder History of diverticulitis CAD (coronary artery disease) S/p PCI with BMS to D1 in 2011 Unspecified atrial fibrillation Diabetes mellitus, type 2 Dementia Restlessness and agitation [facility] resident Weakness Lumbosacral spondylosis Atrial flutter with rapid ventricular response CHF (congestive heart failure) diastolic per OR record Nocturnal hypoxemia Per records COPD (chronic obstructive pulmonary disease) Per records Osteoarthritis History of kidney stones GERD (gastroesophageal reflux disease) Hyperlipidemia Surgical History History of cardioversion (10/12/20) @ [facility] S/P angioplasty with stent History of cystoscopy History of colonoscopy History of hysterectomy History of repair of rotator cuff RT History of tooth extraction History of tonsillectomy and adenoidectomy History of cataract surgery RT/LEFT History of heart artery stent 1 STENT PLACED to D1 in 2011 Family History Son Family history of diabetes mellitus Other No family history of adverse response to anesthesia Social History Smoking Status: Never smoker Second Hand Exposure: No; Do You Dip or Chew Tobacco: No; Preferred Language: Irish Communication Ability: Impaired Communication Ability Comment: pt has dementia/NH states someone will be w pt to sign consents Sap Business Analyst Required: No Beliefs That Will Affect Care: None Current Living Situation: [facility] Current Living Situation Comment: [facility] Feels Safe at Home: Yes Assistive Devices: Denture - Upper and Wheelchair Allergies Allergies Allergy/AdvReac Type Severity Reaction Status Date / Time codeine Allergy Mild SICK Verified 11/10/24 09:42 propoxyphene Allergy Mild SICK Verified 11/10/24 09:42 BEE STING Allergy Severe Anaphylaxis Uncoded 11/10/24 09:42 Home Meds Home Medications Medication Instructions Recorded Confirmed trazodone 100 mg tablet 100 mg PO HS 05/26/23 01/10/25 acetaminophen 325 mg tablet 650 mg PO Q6 PRN Pain 1-4 08/24/24 01/10/25 epinephrine 0.3 mg/0.3 mL 0.3 mg IM . NEEDED PRN ALLERGY 08/24/24 01/10/25 injection, auto-injector REACTION fluoxetine 20 mg capsule 20 mg PO DAILY 08/24/24 01/10/25 metformin 1,000 mg tablet 1,000 mg PO AMHS 08/24/24 01/10/25 sennosides 8.6 mg-docusate sodium 1 tab-cap PO AMHS Constipation 08/24/24 01/10/25 50 mg tablet (Senna with Docusate Sodium) hydrocodone 5 mg-acetaminophen 325 2 tab PO Q6H PRN MODERATE OR 10/29/24 01/10/25 mg tablet SEVERE PAIN 5-10 acetaminophen 325 mg tablet 650 mg PO Q6 PRN TEMP > 100 01/10/25 01/10/25 apixaban 2.5 mg tablet (Eliquis) 2.5 mg PO AMHS 01/10/25 01/10/25 aspirin 81 mg tablet,delayed 81 mg PO DAILY 01/10/25 01/10/25 release atorvastatin 40 mg tablet 40 mg PO DAILY 01/10/25 01/10/25 bacitracin 500 unit/gram topical 1 applic topical .EVERY DAY SHIFT 01/10/25 01/10/25 ointment metoprolol succinate 100 mg 100 mg PO AMHS 01/10/25 01/10/25 tablet,extended release 24 hr ondansetron 4 mg disintegrating 4 mg PO Q6 PRN N/V 01/10/25 01/10/25 tablet triamcinolone acetonide 0.1 % 1 applic topical TID 01/10/25 01/10/25 topical cream valacyclovir 1 gram tablet 1 mg PO TID 01/10/25 01/10/25 Previous Rx's Medication Instructions Recorded potassium chloride 20 mEq 20 meq PO DAILY #3 tabs 08/29/24 tablet,extended release Results & Data (ED) Vital Signs Vital Signs - 24 hr 01/10/25 15:39 01/10/25 15:48 01/10/25 16:05 Temperature 37.1 C Temperature Source Oral Pulse Rate 101 H 104 H Pulse Rate from SpO2 Sensor Pulse Rhythm Irregular Respiratory Rate 18 Respiratory Effort / Characteristics Non-Labored Spontaneous Respiratory Depth Normal Respiratory Pattern Regular Blood Pressure 142/107 H Blood Pressure Mean 118 Blood Pressure Position Semi-fowlers Pulse Oximetry 98 Oxygen Delivery Method Room Air Room Air Sepsis Recent Fever Within 48 Hours No Sepsis New/Unexplained Change in Mental Status No Sepsis Action Taken by Nursing No Action Required 01/10/25 16:06 01/10/25 16:30 01/10/25 17:24 Temperature Temperature Source Pulse Rate 114 H 109 H 119 H Pulse Rate from SpO2 Sensor 116 H 120 H Pulse Rhythm Respiratory Rate 22 19 18 Respiratory Effort / Characteristics Respiratory Depth Respiratory Pattern Blood Pressure 134/90 166/105 H 98/73 L Blood Pressure Mean 104 110 81 Blood Pressure Position Pulse Oximetry 96 97 94 Oxygen Delivery Method Sepsis Recent Fever Within 48 Hours Sepsis New/Unexplained Change in Mental Status Sepsis Action Taken by Nursing 01/10/25 17:30 Temperature Temperature Source Pulse Rate Pulse Rate from SpO2 Sensor Pulse Rhythm Respiratory Rate Respiratory Effort / Characteristics Respiratory Depth Respiratory Pattern Blood Pressure 98/73 L Blood Pressure Mean 74 Blood Pressure Position Pulse Oximetry Oxygen Delivery Method Sepsis Recent Fever Within 48 Hours Sepsis New/Unexplained Change in Mental Status Sepsis Action Taken by [facility] Medications Current Medication List: was personally reviewed by me Laboratory Data Attestation: I reviewed the patient's lab results. 01/10/25 16:06 01/10/25 16:06 Lab Results 01/10/25 Range/Units 16:06 WBC 11.11 H (4.8-10.8) K/ul RBC 5.02 (4.20-5.40) M/uL Hgb 13.8 (12.0-16.0) g/dl Hct 42.3 (37.0-47.0) % MCV 84.3 (80.0-100.0) fL MCH 27.5 (25.0-34.0) pg MCHC 32.6 (32.0-36.0) g/dL RDW Std Deviation 42.4 (36.4-46.3) fL RDW Coeff of Dash 13.9 (11.5-14.5) % Plt Count 371 (130-400) K/uL MPV 9.9 (9.4-12.4) fL Immature Gran % (Auto) 0.4 % Neut % (Auto) 66.7 % Lymph % (Auto) 23.7 % [place] % (Auto) 7.0 % Eos % (Auto) 1.6 % Baso % (Auto) 0.6 % Neut # (Auto) 7.41 H (1.40-6.50) K/uL Lymph # (Auto) 2.63 (1.20-3.40) K/uL [place] # (Auto) 0.78 H (0.11-0.59) K/uL Eos # (Auto) 0.18 (0.00-0.50) K/uL Baso # (Auto) 0.07 (0.00-0.20) K/uL Immature Gran # (Auto) 0.04 (0.01-0.20) K/uL PT 11.7 (9.0-12.0) Seconds INR 1.1 (0.9-1.1) APTT 28 (21-31) Seconds PTT Ratio 1.0 Sodium 135 L (136-145) mmol/L Potassium 4.6 (3.5-5.1) mmol/L Chloride 104 (98-107) mmol/L Carbon Dioxide 22 (21-32) mmol/L Anion Gap 9 (3-11) BUN 13 (6-23) mg/dl Creatinine 0.84 (0.6-1.2) mg/dl Est Cr Clr Drug Dosing 44.4 ml/min eGFR 69.34 BUN/Creatinine Ratio 15.5 (10-20) Glucose 133 H (70-99(Fasting)) mg/dl Calcium 9.5 (8.6-10.3) mg/dl Total Bilirubin 0.7 (0.2-1.0) mg/dl AST 24 (13-39) U/L ALT 13 (7-52) U/L Alkaline Phosphatase 56 (34-104) U/L Troponin I High Sens 6.0 (0-14) pg/ml Total Protein 7.7 (6.0-8.3) gm/dl Albumin 3.8 (3.4-5.0) gm/dl Globulin 3.9 (2.5-4.0) gm/dl Albumin/Globulin Ratio 1.0 (0.9-2) Lipase 45 (11-82) U/L Blood Type B Positive Antibody Screen NEGATIVE Imaging Data Attestation: I personally reviewed and interpreted this imaging study as follows: My Impression: 1 view chest x-ray was obtained in the emergency department. My interpretation is no free air or definite infiltrate, final report below. Radiologist's Impression: Chest X-Ray 01/10/25 15:46 EXAM: Portable AP chest radiograph TECHNIQUE: AP portable radiograph of the chest was obtained. INDICATION: Shortness of breath Comparison: Chest radiograph November 10, 2024 FINDINGS: LINES and TUBES: None CARDIOVASCULAR: Cardiac silhouette is stably and mildly enlarged in size. Atherosclerosis of the thoracic aorta LUNGS/PLEURA: No focal consolidation identified. No significant pleural fluid. No discernible pneumothorax. OSSEOUS/OTHER: No displaced acute osseous process identified. Redemonstration of right shoulder cuff repair IMPRESSION: No radiographic evidence of acute cardiopulmonary process with unchanged findings compared to the November 10, 2024 radiograph Electronically signed by Dirk Lopez 01-10-2025 5:31 PM KUB X-Ray 01/10/25 15:46 INDICATION: Abdominal pain TECHNIQUE: Portable supine view radiograph of the abdomen was obtained. COMPARISON: None. FINDINGS: The bowel gas pattern is nonobstructive. Evaluation for free air is limited due to supine technique. Organ silhouettes are normal in shape and contour. There is no gross mass effect. Vascular calcifications and pelvic phleboliths. Punctate calcific densities projecting over the left kidney shadow could be due to renal calculi. IMPRESSION: Nonobstructive bowel gas pattern. Electronically signed by Dirk Lopez 01-10-2025 5:43 PM Discharge Plan Visit Data Chief Complaint: GI Bleed Stated Complaint: DARK STOOL ED Provider: Adam Velasquez Discharge Problem: GIB (gastrointestinal bleeding), Chronic atrial fibrillation Patient Disposition: Being Evaluated by Hospitalist Condition: Fair Forms Stand Alone Forms: My [facility] Prescriptions Prescriptions: No Action trazodone 100 mg tablet 100 mg PO HS epinephrine 0.3 mg/0.3 mL Auto-Injector 0.3 mg IM . NEEDED PRN (Reason: ALLERGY REACTION) metformin 1,000 mg Tablet 1,000 mg PO AMHS fluoxetine 20 mg Capsule 20 mg PO DAILY acetaminophen 325 mg Tablet 650 mg PO Q6 MDD 3G PRN (Reason: Pain 1-4) sennosides-docusate sodium [Senna with Docusate Sodium] 8.6-50 mg Tablet 1 tab-cap PO AMHS potassium chloride 20 mEq tablet extended release 20 meq PO DAILY Qty: 3 0RF aspirin 81 mg Tablet,Delayed Release (Dr/Ec) 81 mg PO DAILY atorvastatin 40 mg tablet 40 mg PO DAILY Eliquis 2.5 mg tablet 2.5 mg PO AMHS metoprolol succinate 100 mg Tablet Extended Release 24 Hr 100 mg PO AMHS ondansetron 4 mg tablet,disintegrating 4 mg PO Q6 PRN (Reason: N/V) valacyclovir 1 gram tablet 1 mg PO TID Rx Instructions: START 01/09/25 TAKE FOR 7 DAYS acetaminophen 325 mg Tablet 650 mg PO Q6 MDD 3 GRAMS PRN (Reason: TEMP > 100) triamcinolone acetonide 0.1 % cream 1 applic TOPICAL TID Rx Instructions: APPLY TO LOWER BACK/BUTTOCK FOR RASH X 2 WEEKS START 01/09/25 bacitracin 500 unit/gram Ointment 1 applic TOPICAL .EVERY DAY SHIFT Rx Instructions: APPLY T0 LEFT GREAT TOE AFTER CLEANSING WITH NSS OR WOUND ANIMAL BEHAVIORIST , THEN COVER WITH DRY DRESSING hydrocodone-acetaminophen 5-325 mg Tablet 2 tab PO Q6H MDD 3 GRAMS OF APAP PRN (Reason: MODERATE OR SEVERE PAIN 5-10) Referrals Referrals: Amparo Rich DO [Primary Care Provider] -
[2025-01-10 16:29] LABS: Hematocrit (blood only) 42.3 % (37.0-47.0); Hemoglobin 13.8 g/dl (12.0-16.0); Immature Granulocytes # (auto) 0.04 K/uL (0.01-0.20); Immature Granulocytes % (auto) 0.4 %; Mean Corpuscular Hemoglobin 27.5 pg (25.0-34.0); Mean Corpuscular Volume 84.3 fL (80.0-100.0); Platelet Count 371 K/uL (130-400); RDW Standard Deviation 42.4 fL (36.4-46.3); Red Blood Count 5.02 M/uL (4.20-5.40); White Blood Count 11.11 K/ul (4.8-10.8)
[2025-01-10 16:37] LABS: INR 1.1 (0.9-1.1); Partial Thromboplastin Time 28 Seconds (21-31); Prothrombin Time 11.7 Seconds (9.0-12.0)
[2025-01-10 16:56] LABS: Alanine Aminotransferase 13.0 U/L (7-52); Alkaline Phosphatase 56.0 U/L (34-104); Anion Gap 9.0 (3-11); Bilirubin,Total 0.7 mg/dl (0.2-1.0); Blood Urea Nitrogen 13.0 mg/dl (6-23); Calcium 9.5 mg/dl (8.6-10.3); Carbon Dioxide 22.0 mmol/L (21-32); Chloride 104.0 mmol/L (98-107); Creatinine Clr Calc Pharmacy 44.4 ml/min; Glucose 133.0 mg/dl (70-99(Fasting)); Lipase 45.0 U/L (11-82); Potassium 4.6 mmol/L (3.5-5.1); Sodium 135.0 mmol/L (136-145)
[2025-01-10 17:03] LABS: Albumin Globulin Ratio 1.0 (0.9-2); Globulin 3.9 gm/dl (2.5-4.0); Total Protein 7.7 gm/dl (6.0-8.3)
--- NOTE | 2025-01-10 17:31 | XRay Report ---
EXAM: Portable AP chest radiograph TECHNIQUE: AP portable radiograph of the chest was obtained. INDICATION: Shortness of breath Comparison: Chest radiograph November 10, 2024 FINDINGS: LINES and TUBES: None CARDIOVASCULAR: Cardiac silhouette is stably and mildly enlarged in size. Atherosclerosis of the thoracic aorta LUNGS/PLEURA: No focal consolidation identified. No significant pleural fluid. No discernible pneumothorax. OSSEOUS/OTHER: No displaced acute osseous process identified. Redemonstration of right shoulder cuff repair IMPRESSION: No radiographic evidence of acute cardiopulmonary process with unchanged findings compared to the November 10, 2024 radiograph Electronically signed by Dirk Lopez 01-10-2025 5:31 PM
--- NOTE | 2025-01-10 17:44 | XRay Report ---
INDICATION: Abdominal pain TECHNIQUE: Portable supine view radiograph of the abdomen was obtained. COMPARISON: None. FINDINGS: The bowel gas pattern is nonobstructive. Evaluation for free air is limited due to supine technique. Organ silhouettes are normal in shape and contour. There is no gross mass effect. Vascular calcifications and pelvic phleboliths. Punctate calcific densities projecting over the left kidney shadow could be due to renal calculi. IMPRESSION: Nonobstructive bowel gas pattern. Electronically signed by Dirk Lopez 01-10-2025 5:43 PM
--- NOTE | 2025-01-10 19:04 | History & Physical Report ---
Date of Service January 10, 2025 Assessment & Plan (1) GIB (gastrointestinal bleeding): (2) Chronic atrial fibrillation: (3) S/P above knee amputation: (4) Peripheral arterial disease: (5) Chronic pain: (6) Chronic heart failure with preserved ejection fraction (HFpEF): (7) ASCVD (arteriosclerotic cardiovascular disease): (8) CKD (chronic kidney disease), stage III: (9) Major depressive disorder: (10) Diabetic polyneuropathy associated with type 2 diabetes mellitus: (11) CAD (coronary artery disease): (12) Diabetes mellitus, type 2: (13) Hypertension: Plan This is an 84-year-old female with atrial fibrillation on Eliquis, peripheral vascular disease with right lower extremity amputation 2 months ago, diabetes mellitus, hypertension/hyperlipidemia, COPD,'s coronary artery disease status post stent, dementia, anxiety/depression, HFpEF, CKD stage III who presents with dark stools that are heme positive #GI bleed in the setting of being on anticoagulation Maroon-colored stools that are strongly heme positive Hemoglobin stable Hemodynamically stable Hold Eliquis Hold aspirin Monitor H&H and vitals Clear liquid diet now N.p.o. postmidnight Start IV Protonix Consult GI #Atrial fibrillation paroxysmal Hold Eliquis due to GI bleed Continue metoprolol with holding parameters #Coronary artery disease status post stent/peripheral vascular disease Hold aspirin in the setting of GI bleed Continue metoprolol Status post right lower extremity amputation on 11/10. Wound healing well #Diabetes mellitus type 2 Sliding scale insulin Carb controlled clear liquid diet #Shingles Recently diagnosed Continue Valtrex #COPD/remote tobacco abuse Quit smoking 2 years ago Not on oxygen at home #Hypertension/hyperlipidemia Continue metoprolol and statin #Anxiety/depression Continue trazodone and fluoxetine VTE prophylaxis: SCDs. No chemical prophylaxis due to GI bleed CODE STATUS: Full code History of Present Illness Chief Complaint: Generalized weakness, dark and bloody stools, hypotension Primary Care Provider: Amparo Rich DO This is an 84-year-old female, resident at [facility] for 2 years, with history of atrial fibrillation on Eliquis, right lower extremity amputation 2 months ago, diabetes mellitus type 2, hyperlipidemia, hypertension, COPD, remote tobacco abuse, coronary artery disease status post stent, HFpEF, CKD stage III, anxiety/depression, dementia who presents to the ER with the above chief complaint. The patient is not a good historian. She is accompanied by her daughter at the bedside who is able to provide history. The daughter got a call from [facility] this morning about the patient's. She was informed that the patient had dark stools that were heme positive. Moreover her blood pressure was low and she was weak. Decision was made to call 911 and get her transferred to the emergency room. In the ER, she had a rectal exam done with heme positive stools. Her blood pressure is stable now. Per ER doc, she has not been having bloody bowel movements. He had to do a rectal exam to do the stool test. Screening tests in the emergency room showed that her hemoglobin was normal and stable. Since the patient is on Eliquis, a decision was made to admit the patient and to follow serial hemoglobin and to decide on GI workup. Allergies Allergy/AdvReac Type Severity Reaction Status Date / Time codeine Allergy Mild SICK Verified 11/10/24 09:42 propoxyphene Allergy Mild SICK Verified 11/10/24 09:42 BEE STING Allergy Severe Anaphylaxis Uncoded 11/10/24 09:42 Home Medications Medication Instructions Recorded Confirmed Type trazodone 100 mg tablet 100 mg PO HS 05/26/23 01/10/25 History acetaminophen 325 mg tablet 650 mg PO Q6 PRN Pain 1-4 08/24/24 01/10/25 History epinephrine 0.3 mg/0.3 mL 0.3 mg IM . NEEDED PRN ALLERGY 08/24/24 01/10/25 History injection, auto-injector REACTION fluoxetine 20 mg capsule 20 mg PO DAILY 08/24/24 01/10/25 History metformin 1,000 mg tablet 1,000 mg PO AMHS 08/24/24 01/10/25 History sennosides 8.6 mg-docusate sodium 1 tab-cap PO AMHS Constipation 08/24/24 01/10/25 History 50 mg tablet (Senna with Docusate Sodium) potassium chloride 20 mEq 20 meq PO DAILY #3 tabs 08/29/24 01/10/25 Rx tablet,extended release hydrocodone 5 mg-acetaminophen 325 2 tab PO Q6H PRN MODERATE OR 10/29/24 01/10/25 History mg tablet SEVERE PAIN 5-10 acetaminophen 325 mg tablet 650 mg PO Q6 PRN TEMP > 100 01/10/25 01/10/25 History apixaban 2.5 mg tablet (Eliquis) 2.5 mg PO AMHS 01/10/25 01/10/25 History aspirin 81 mg tablet,delayed 81 mg PO DAILY 01/10/25 01/10/25 History release atorvastatin 40 mg tablet 40 mg PO DAILY 01/10/25 01/10/25 History bacitracin 500 unit/gram topical 1 applic topical .EVERY DAY SHIFT 01/10/25 01/10/25 History ointment metoprolol succinate 100 mg 100 mg PO AMHS 01/10/25 01/10/25 History tablet,extended release 24 hr ondansetron 4 mg disintegrating 4 mg PO Q6 PRN N/V 01/10/25 01/10/25 History tablet triamcinolone acetonide 0.1 % 1 applic topical TID 01/10/25 01/10/25 History topical cream valacyclovir 1 gram tablet 1 mg PO TID 01/10/25 01/10/25 History Past Med/Surg History Problem List (Updated 01/10/25 @ 18:19 by Adam Velasquez DO) GIB (gastrointestinal bleeding) (Acute) Chronic atrial fibrillation (Acute) S/P above knee amputation Ingrowing nail Peripheral arterial disease Pressure ulcer of right heel, stage 3 Other specified peripheral vascular diseases NSTEMI (non-ST elevated myocardial infarction) Non-healing wound of right heel Weakness generalized Chronic pain Chronic heart failure with preserved ejection fraction (HFpEF) ASCVD (arteriosclerotic cardiovascular disease) Major depressive disorder CKD (chronic kidney disease), stage III Diabetic polyneuropathy associated with type 2 diabetes mellitus Centrilobular emphysema Morbid obesity SOB (shortness of breath) (Acute) Mitral regurgitation Atrial fibrillation with RVR Diverticulitis of sigmoid colon (Acute) PUD (peptic ulcer disease) Symptomatic anemia (Acute) Smoker Obesity CAD (coronary artery disease) S/p PCI with BMS to D1 in 2011 Diabetes mellitus, type 2 Hypertension Medical History PVD (peripheral vascular disease) History of UTI Sacral decubitus ulcer History of recent hospitalization (08/2024) @ [facility]--Admitted with sepsis, diagnosed with NSTEMI demand Type II event in setting of acute illness and afib RVR with non compliance with oral metoprolol at home Non-healing wound of right heel Major depressive disorder History of diverticulitis CAD (coronary artery disease) S/p PCI with BMS to D1 in 2011 Unspecified atrial fibrillation Diabetes mellitus, type 2 Dementia Restlessness and agitation [facility] resident Weakness Lumbosacral spondylosis Atrial flutter with rapid ventricular response CHF (congestive heart failure) diastolic per [place] record Nocturnal hypoxemia Per records COPD (chronic obstructive pulmonary disease) Per records Osteoarthritis History of kidney stones GERD (gastroesophageal reflux disease) Hyperlipidemia Surgical History History of cardioversion (10/12/20) @ [facility] S/P angioplasty with stent History of cystoscopy History of colonoscopy History of hysterectomy History of repair of rotator cuff RT History of tooth extraction History of tonsillectomy and adenoidectomy History of cataract surgery RT/LEFT History of heart artery stent 1 STENT PLACED to D1 in 2011 Family History Son Family history of diabetes mellitus Other No family history of adverse response to anesthesia Social History Smoking Status: Never smoker Second Hand Exposure: No; Do You Dip or Chew Tobacco: No; Preferred Language: Persian Communication Ability: Impaired Communication Ability Comment: pt has dementia/NH states someone will be w pt to sign consents Cleaners Required: No Beliefs That Will Affect Care: None Current Living Situation: Longterm Current Living Situation Comment: [place] [facility] Feels Safe at Home: Yes Assistive Devices: Denture - Upper and Wheelchair Review of Systems Review of Systems: All systems reviewed & are unremarkable except as noted in HPI & below Physical Exam Physical Exam: General: Awake, conversant. Elderly frail looking female lying in bed. She says she is hungry. Heart: S1, S2/regular rate and rhythm, no murmur rubs or gallops Lungs: Clear to auscultation bilaterally. Normal effort Abdomen: Soft/nontender/nondistended. No hepatosplenomegaly Extremities: No clubbing/cyanosis. No edema. Status post right lower extremity amputation, healed surgical wound Behavior: Appropriate, cooperative Results & Data Results & Data Vital Signs (Past 12 Hours) Vital Signs Temp Pulse Resp BP Pulse Ox O2 Del Method 01/10/25 18:00 108 H 24 113/91 100 01/10/25 17:30 98/73 L 01/10/25 17:24 119 H 18 98/73 L 94 01/10/25 16:30 109 H 19 166/105 H 97 01/10/25 16:06 114 H 22 134/90 96 01/10/25 16:05 Room Air 01/10/25 15:48 104 H 01/10/25 15:39 37.1 C 101 H 18 142/107 H 98 Room Air Laboratory Results Abnormal lab results 01/10/25 Range/Units 16:06 WBC 11.11 H (4.8-10.8) K/ul Neut # (Auto) 7.41 H (1.40-6.50) K/uL [place] # (Auto) 0.78 H (0.11-0.59) K/uL Sodium 135 L (136-145) mmol/L Glucose 133 H (70-99(Fasting)) mg/dl Code Status & VTE Plan VTE Prophylaxis Plan VTE Prophylaxis will be ordered: Yes PG Care Time/CCT Total # of Minutes Spent Total Time Spent with Patient: Total time spent is greater than 50% in coordination of care (as documented) at patient's floor/unit and/or counseling patient: Coding Level of Care Code 32284 INT INP/OBS CARE 2MIN Diagnoses GIB (gastrointestinal bleeding) K92.2 Chronic atrial fibrillation I48.20 S/P above knee amputation Z89.619 Peripheral arterial disease I73.9 Chronic pain G89.29 Chronic heart failure with preserved ejection fraction (HFpEF) I50.32 ASCVD (arteriosclerotic cardiovascular disease) I25.10 CKD (chronic kidney disease), stage III N18.30 Major depressive disorder F32.9 Diabetic polyneuropathy associated with type 2 diabetes mellitus E11.42 CAD (coronary artery disease) I25.10 Diabetes mellitus, type 2 E11.9 Primary hypertension I10 Hypertension type: primary hypertension (13) Hypertension Hypertension type: primary hypertension Qualified Code(s): I10 - Essential (primary) hypertension
[2025-01-10] MEDS ORDERED: ACETAMINOPHEN 325 MG TAB PO PRN (21:08)
[2025-01-10] MEDS ORDERED: HYDROCODONE/ACETAMOPHEN 5/325MG TAB PO PRN (21:08)
[2025-01-10] MEDS ORDERED: CARBOHYDRATES FOR HYPOGLYCEMIA PO PRN (21:08)
[2025-01-10] MEDS ORDERED: GLUCAGON FOR INJ 1 MG VIAL SQ PRN (21:08)
[2025-01-10] MEDS ORDERED: ONDANSETRON INJ 2 MG/ML 2 ML VIAL IV PRN (21:08)
[2025-01-10] MEDS ORDERED: GLUCOSE 10 TAB/TUBE PO PRN (21:08)
[2025-01-10] MEDS ORDERED: DEXTROSE 50% 50 ML SYRINGE IV PRN (21:08)
[2025-01-10] MEDS ORDERED: GLUCOSE 40% GEL 15 GM TUBE PO PRN (21:08)
[2025-01-10] MEDS: PANTOprazole 40 MG/10 ML SYR IV SCH (21:55)
[2025-01-10] MEDS: METOPROLOL SUCC 50MG EXT REL TAB PO SCH (21:55)
[2025-01-10 21:56] LABS: Hematocrit (blood only) 44.3 % (37.0-47.0); Hemoglobin 14.8 g/dl (12.0-16.0)
[2025-01-10] MEDS ORDERED: PNEUMOCOCCAL VACCINE (PCV20) 20-VAL CONJ-DIP CRM/PF 0.5 ML SYR IM ONE (22:00)
[2025-01-10] MEDS: INSULIN ASPART PER UNIT CHARGE SC SCH (23:42)
[2025-01-11 06:33] LABS: Hematocrit (blood only) 43.5 % (37.0-47.0); Hemoglobin 14.5 g/dl (12.0-16.0); Mean Corpuscular Hemoglobin 28.1 pg (25.0-34.0); Mean Corpuscular Volume 84.3 fL (80.0-100.0); Platelet Count 332 K/uL (130-400); RDW Standard Deviation 42.2 fL (36.4-46.3); Red Blood Count 5.16 M/uL (4.20-5.40); White Blood Count 14.01 K/ul (4.8-10.8)
[2025-01-11 06:57] LABS: Anion Gap 8.0 (3-11); Calcium 9.7 mg/dl (8.6-10.3); Carbon Dioxide 22.0 mmol/L (21-32); Chloride 105.0 mmol/L (98-107); Potassium 4.4 mmol/L (3.5-5.1); Sodium 135.0 mmol/L (136-145)
[2025-01-11 07:02] LABS: Blood Urea Nitrogen 13.0 mg/dl (6-23); Creatinine Clr Calc Pharmacy 41.1 ml/min; Glucose 152.0 mg/dl (70-99(Fasting))
--- NOTE | 2025-01-11 08:06 | Gastrointestinal Consultation ---
Date of Consultation January 11, 2025 Assessment & Plan (1) Rectal bleeding: Limited historical information but apparently admitted with isolated episode of rectal bleeding. Stool report from 10 pm last night showed brown stools. Hgb is stable and actually higher today than on presentation to ED and in normal range at 14.5. With this information and her current overall condition I don't think we should pursue colonoscopy. From the information I have it sounds like hemorrhoidal bleeding. It would be nice to know when she had her colonoscopy but I would not do endoscopic or colonoscopic exam unless it becomes clinically necessary. History of Present Illness Reason for Consultation: rectal bleeding Attending Physician: Dev De La Fuente MD History of Present Illness 84 year old female admitted with "rectal bleeding". She only woke up long enough to tell me she had one episode of bleeding yesterday and that she bled before in "1961". She did say she has had a colonoscopy but would not stay awake long enough to tell me when or who did it. She would not wake again. Hemoglobin last night and this morning are stable above 14. Recent AKA performed. She is on eliquis Allergies Allergy/AdvReac Type Severity Reaction Status Date / Time codeine Allergy Mild SICK Verified 11/10/24 09:42 propoxyphene Allergy Mild SICK Verified 11/10/24 09:42 BEE STING Allergy Severe Anaphylaxis Uncoded 11/10/24 09:42 Home Medications Medication Instructions Recorded Confirmed Type trazodone 100 mg tablet 100 mg PO HS 05/26/23 01/10/25 History acetaminophen 325 mg tablet 650 mg PO Q6 PRN Pain 1-4 08/24/24 01/10/25 History epinephrine 0.3 mg/0.3 mL 0.3 mg IM . NEEDED PRN ALLERGY 08/24/24 01/10/25 History injection, auto-injector REACTION fluoxetine 20 mg capsule 20 mg PO DAILY 08/24/24 01/10/25 History metformin 1,000 mg tablet 1,000 mg PO AMHS 08/24/24 01/10/25 History sennosides 8.6 mg-docusate sodium 1 tab-cap PO AMHS Constipation 08/24/24 01/10/25 History 50 mg tablet (Senna with Docusate Sodium) potassium chloride 20 mEq 20 meq PO DAILY #3 tabs 08/29/24 01/10/25 Rx tablet,extended release hydrocodone 5 mg-acetaminophen 325 2 tab PO Q6H PRN MODERATE OR 10/29/24 01/10/25 History mg tablet SEVERE PAIN 5-10 acetaminophen 325 mg tablet 650 mg PO Q6 PRN TEMP > 100 01/10/25 01/10/25 History apixaban 2.5 mg tablet (Eliquis) 2.5 mg PO AMHS 01/10/25 01/10/25 History aspirin 81 mg tablet,delayed 81 mg PO DAILY 01/10/25 01/10/25 History release atorvastatin 40 mg tablet 40 mg PO DAILY 01/10/25 01/10/25 History bacitracin 500 unit/gram topical 1 applic topical .EVERY DAY SHIFT 01/10/25 01/10/25 History ointment metoprolol succinate 100 mg 100 mg PO AMHS 01/10/25 01/10/25 History tablet,extended release 24 hr ondansetron 4 mg disintegrating 4 mg PO Q6 PRN N/V 01/10/25 01/10/25 History tablet triamcinolone acetonide 0.1 % 1 applic topical TID 01/10/25 01/10/25 History topical cream valacyclovir 1 gram tablet 1 mg PO TID 01/10/25 01/10/25 History Patient History Medical History PVD (peripheral vascular disease) History of UTI Sacral decubitus ulcer History of recent hospitalization (08/2024) @ [facility]--Admitted with sepsis, diagnosed with NSTEMI demand Type II event in setting of acute illness and afib RVR with non compliance with oral metoprolol at home Non-healing wound of right heel Major depressive disorder History of diverticulitis CAD (coronary artery disease) S/p PCI with BMS to D1 in 2011 Unspecified atrial fibrillation Diabetes mellitus, type 2 Dementia Restlessness and agitation longterm resident Weakness Lumbosacral spondylosis Atrial flutter with rapid ventricular response CHF (congestive heart failure) diastolic per [place] record Nocturnal hypoxemia Per records COPD (chronic obstructive pulmonary disease) Per records Osteoarthritis History of kidney stones GERD (gastroesophageal reflux disease) Hyperlipidemia Surgical History History of cardioversion (10/12/20) @ [facility] S/P angioplasty with stent History of cystoscopy History of colonoscopy History of hysterectomy History of repair of rotator cuff RT History of tooth extraction History of tonsillectomy and adenoidectomy History of cataract surgery RT/LEFT History of heart artery stent 1 STENT PLACED to D1 in 2011 Family History Son Family history of diabetes mellitus Other No family history of adverse response to anesthesia Social History Smoking Status: Never smoker Second Hand Exposure: No; Do You Dip or Chew Tobacco: No; Hx Alcohol Use: No Hx Substance Use: No Preferred Language: Faroese Communication Ability: Impaired Communication Ability Comment: pt has dementia/NH states someone will be w pt to sign consents User Interface Designer Required: No Beliefs That Will Affect Care: None Current Living Situation: Long-Term Current Living Situation Comment: [place] [facility] Feels Safe at Home: Yes Assistive Devices: Glasses Review of Systems Review of Systems: Unobtainable due to cognitive status Physical Exam Constitutional: + ill appearing and + thin Respiratory: normal respiratory effort, lungs clear to auscultation Cardiovascular: RRR, no murmur, no edema Gastrointestinal (Abdomen): normal bowel sounds, soft, nontender, no hepatosplenomegaly Results & Data Vital Signs (Past 12 Hours) Vital Signs Temp Pulse Pulse Resp BP BP BP 01/11/25 03:30 36.7 C 111 H 14 177/94 H 01/11/25 00:44 99 H 01/10/25 23:03 36.8 C 116 H 16 143/94 H 01/10/25 22:11 01/10/25 21:48 114 H 18 112/76 01/10/25 21:25 36.2 C L 111 H 20 139/88 Pulse Ox O2 Del Method 01/11/25 03:30 93 Room Air 01/11/25 00:44 01/10/25 23:03 96 Room Air 01/10/25 22:11 Room Air 01/10/25 21:48 98 Room Air 01/10/25 21:25 98 Room Air Laboratory Results 01/11/25 01/11/25 01/10/25 Range/Units 06:19 06:17 23:45 WBC 14.01 H (4.8-10.8) K/ul RBC 5.16 (4.20-5.40) M/uL Hgb 14.5 (12.0-16.0) g/dl Hct 43.5 (37.0-47.0) % MCV 84.3 (80.0-100.0) fL MCH 28.1 (25.0-34.0) pg MCHC 33.3 (32.0-36.0) g/dL RDW Std Deviation 42.2 (36.4-46.3) fL RDW Coeff of Dash 13.6 (11.5-14.5) % Plt Count 332 (130-400) K/uL MPV 10.0 (9.4-12.4) fL Immature Gran % (Auto) % Neut % (Auto) % Lymph % (Auto) % [place] % (Auto) % Eos % (Auto) % Baso % (Auto) % Neut # (Auto) (1.40-6.50) K/uL Lymph # (Auto) (1.20-3.40) K/uL [place] # (Auto) (0.11-0.59) K/uL Eos # (Auto) (0.00-0.50) K/uL Baso # (Auto) (0.00-0.20) K/uL Immature Gran # (Auto) (0.01-0.20) K/uL PT (9.0-12.0) Seconds INR (0.9-1.1) APTT (21-31) Seconds PTT Ratio Sodium 135 L (136-145) mmol/L Potassium 4.4 (3.5-5.1) mmol/L Chloride 105 (98-107) mmol/L Carbon Dioxide 22 (21-32) mmol/L Anion Gap 8 (3-11) BUN 13 (6-23) mg/dl Creatinine 0.85 (0.6-1.2) mg/dl Est Cr Clr Drug Dosing 41.1 ml/min eGFR 68.36 BUN/Creatinine Ratio 15.3 (10-20) Glucose 152 H (70-99(Fasting)) mg/dl POC Glucose 133 H (70-99) mg/dl Calcium 9.7 (8.6-10.3) mg/dl Total Bilirubin (0.2-1.0) mg/dl AST (13-39) U/L ALT (7-52) U/L Alkaline Phosphatase (34-104) U/L Troponin I High Sens (0-14) pg/ml Total Protein (6.0-8.3) gm/dl Albumin (3.4-5.0) gm/dl Globulin (2.5-4.0) gm/dl Albumin/Globulin Ratio (0.9-2) Lipase (11-82) U/L Nasal Screen MRSA (PCR) Positive A (Negative) Blood Type Antibody Screen 01/10/25 01/10/25 01/10/25 Range/Units 23:34 21:38 21:16 WBC (4.8-10.8) K/ul RBC (4.20-5.40) M/uL Hgb 14.8 (12.0-16.0) g/dl Hct 44.3 (37.0-47.0) % MCV (80.0-100.0) fL MCH (25.0-34.0) pg MCHC (32.0-36.0) g/dL RDW Std Deviation (36.4-46.3) fL RDW Coeff of Dash (11.5-14.5) % Plt Count (130-400) K/uL MPV (9.4-12.4) fL Immature Gran % (Auto) % Neut % (Auto) % Lymph % (Auto) % [place] % (Auto) % Eos % (Auto) % Baso % (Auto) % Neut # (Auto) (1.40-6.50) K/uL Lymph # (Auto) (1.20-3.40) K/uL [place] # (Auto) (0.11-0.59) K/uL Eos # (Auto) (0.00-0.50) K/uL Baso # (Auto) (0.00-0.20) K/uL Immature Gran # (Auto) (0.01-0.20) K/uL PT (9.0-12.0) Seconds INR (0.9-1.1) APTT (21-31) Seconds PTT Ratio Sodium (136-145) mmol/L Potassium (3.5-5.1) mmol/L Chloride (98-107) mmol/L Carbon Dioxide (21-32) mmol/L Anion Gap (3-11) BUN (6-23) mg/dl Creatinine (0.6-1.2) mg/dl Est Cr Clr Drug Dosing ml/min eGFR BUN/Creatinine Ratio (10-20) Glucose (70-99(Fasting)) mg/dl POC Glucose 145 H 142 H (70-99) mg/dl Calcium (8.6-10.3) mg/dl Total Bilirubin (0.2-1.0) mg/dl AST (13-39) U/L ALT (7-52) U/L Alkaline Phosphatase (34-104) U/L Troponin I High Sens (0-14) pg/ml Total Protein (6.0-8.3) gm/dl Albumin (3.4-5.0) gm/dl Globulin (2.5-4.0) gm/dl Albumin/Globulin Ratio (0.9-2) Lipase (11-82) U/L Nasal Screen MRSA (PCR) (Negative) Blood Type Antibody Screen 01/10/25 Range/Units 16:06 WBC 11.11 H (4.8-10.8) K/ul RBC 5.02 (4.20-5.40) M/uL Hgb 13.8 (12.0-16.0) g/dl Hct 42.3 (37.0-47.0) % MCV 84.3 (80.0-100.0) fL MCH 27.5 (25.0-34.0) pg MCHC 32.6 (32.0-36.0) g/dL RDW Std Deviation 42.4 (36.4-46.3) fL RDW Coeff of Dash 13.9 (11.5-14.5) % Plt Count 371 (130-400) K/uL MPV 9.9 (9.4-12.4) fL Immature Gran % (Auto) 0.4 % Neut % (Auto) 66.7 % Lymph % (Auto) 23.7 % [place] % (Auto) 7.0 % Eos % (Auto) 1.6 % Baso % (Auto) 0.6 % Neut # (Auto) 7.41 H (1.40-6.50) K/uL Lymph # (Auto) 2.63 (1.20-3.40) K/uL [place] # (Auto) 0.78 H (0.11-0.59) K/uL Eos # (Auto) 0.18 (0.00-0.50) K/uL Baso # (Auto) 0.07 (0.00-0.20) K/uL Immature Gran # (Auto) 0.04 (0.01-0.20) K/uL PT 11.7 (9.0-12.0) Seconds INR 1.1 (0.9-1.1) APTT 28 (21-31) Seconds PTT Ratio 1.0 Sodium 135 L (136-145) mmol/L Potassium 4.6 (3.5-5.1) mmol/L Chloride 104 (98-107) mmol/L Carbon Dioxide 22 (21-32) mmol/L Anion Gap 9 (3-11) BUN 13 (6-23) mg/dl Creatinine 0.84 (0.6-1.2) mg/dl Est Cr Clr Drug Dosing 44.4 ml/min eGFR 69.34 BUN/Creatinine Ratio 15.5 (10-20) Glucose 133 H (70-99(Fasting)) mg/dl POC Glucose (70-99) mg/dl Calcium 9.5 (8.6-10.3) mg/dl Total Bilirubin 0.7 (0.2-1.0) mg/dl AST 24 (13-39) U/L ALT 13 (7-52) U/L Alkaline Phosphatase 56 (34-104) U/L Troponin I High Sens 6.0 (0-14) pg/ml Total Protein 7.7 (6.0-8.3) gm/dl Albumin 3.8 (3.4-5.0) gm/dl Globulin 3.9 (2.5-4.0) gm/dl Albumin/Globulin Ratio 1.0 (0.9-2) Lipase 45 (11-82) U/L Nasal Screen MRSA (PCR) (Negative) Blood Type B Positive Antibody Screen NEGATIVE Diagnostic Findings Chest X-Ray 01/10/25 15:46 EXAM: Portable AP chest radiograph TECHNIQUE: AP portable radiograph of the chest was obtained. INDICATION: Shortness of breath Comparison: Chest radiograph November 10, 2024 FINDINGS: LINES and TUBES: None CARDIOVASCULAR: Cardiac silhouette is stably and mildly enlarged in size. Atherosclerosis of the thoracic aorta LUNGS/PLEURA: No focal consolidation identified. No significant pleural fluid. No discernible pneumothorax. OSSEOUS/OTHER: No displaced acute osseous process identified. Redemonstration of right shoulder cuff repair IMPRESSION: No radiographic evidence of acute cardiopulmonary process with unchanged findings compared to the November 10, 2024 radiograph Electronically signed by Dirk Lopez 01-10-2025 5:31 PM KUB X-Ray 01/10/25 15:46 INDICATION: Abdominal pain TECHNIQUE: Portable supine view radiograph of the abdomen was obtained. COMPARISON: None. FINDINGS: The bowel gas pattern is nonobstructive. Evaluation for free air is limited due to supine technique. Organ silhouettes are normal in shape and contour. There is no gross mass effect. Vascular calcifications and pelvic phleboliths. Punctate calcific densities projecting over the left kidney shadow could be due to renal calculi. IMPRESSION: Nonobstructive bowel gas pattern. Electronically signed by Dirk Lopez 01-10-2025 5:43 PM
[2025-01-11] MEDS: ATORVASTATIN 40 MG TAB PO SCH (08:26)
--- NOTE | 2025-01-11 10:37 | Hospitalist Progress Note ---
Date of Service January 11, 2025 Assessment & Plan (1) GIB (gastrointestinal bleeding): (2) Chronic atrial fibrillation: (3) S/P above knee amputation: (4) Peripheral arterial disease: (5) Chronic pain: (6) Chronic heart failure with preserved ejection fraction (HFpEF): (7) ASCVD (arteriosclerotic cardiovascular disease): (8) CKD (chronic kidney disease), stage III: (9) Major depressive disorder: (10) Diabetic polyneuropathy associated with type 2 diabetes mellitus: (11) CAD (coronary artery disease): (12) Diabetes mellitus, type 2: (13) Hypertension: Plan This is an 84-year-old female with atrial fibrillation on Eliquis, peripheral vascular disease with right lower extremity amputation 2 months ago, diabetes mellitus, hypertension/hyperlipidemia, COPD,'s coronary artery disease status post stent, dementia, anxiety/depression, HFpEF, CKD stage III who presents with dark stools that are heme positive #GI bleed in the setting of being on anticoagulation Maroon-colored stools that are strongly heme positive Per nurse patient is having incontinent maroon-colored stools Hemoglobin stable Hemodynamically stable Hold Eliquis Hold aspirin Monitor H&H and vitals Discontinue n.p.o. as GI does not plan on any scopes. Clear liquid diet now Continue IV Protonix This is most likely a diverticular bleed #Atrial fibrillation paroxysmal Hold Eliquis due to GI bleed Continue metoprolol with holding parameters Patient refused to take any medications this morning. Her heart rate and blood pressure are elevated Will give her IV metoprolol now #Coronary artery disease status post stent/peripheral vascular disease Hold aspirin in the setting of GI bleed Continue metoprolol Status post right lower extremity amputation on 11/10. Wound healing well #Diabetes mellitus type 2 Sliding scale insulin Carb controlled clear liquid diet #Shingles Recently diagnosed Continue Valtrex if patient cooperates #COPD/remote tobacco abuse Quit smoking 2 years ago Not on oxygen at home #Hypertension/hyperlipidemia Continue metoprolol and statin #Anxiety/depression Continue trazodone and fluoxetine VTE prophylaxis: SCDs. No chemical prophylaxis due to GI bleed CODE STATUS: Full code Admission and Anticipated Discharge Date Admission Date: January 10, 2025 Subjective Patient has been quite uncooperative, per nurse. She did not take her medications this morning. She has used curse words with the nurse. During my encounter, the patient preferred to keep her eyes closed. She refused to open her eyes for me. Did not report any concerns. Per nurse, the patient has had incontinent maroon-colored stools Review of Systems Review of Systems: All systems reviewed & are unremarkable except as noted in Subjective Physical Exam Physical Exam: General: Awake, conversant. Elderly frail looking female lying in bed. Heart: S1, S2/regular rate and rhythm, no murmur rubs or gallops Lungs: Clear to auscultation bilaterally. Normal effort Abdomen: Soft/nontender/nondistended. No hepatosplenomegaly Extremities: No clubbing/cyanosis. No edema. Status post right lower extremity amputation, healed surgical wound Behavior: Appropriate, cooperative Results & Data Results & Data Vital Signs (Past 12 Hours) Vital Signs Temp Pulse Pulse Resp BP BP Pulse Ox 01/11/25 08:00 101 H 01/11/25 03:30 36.7 C 111 H 14 177/94 H 93 01/11/25 00:44 99 H 01/10/25 23:03 36.8 C 116 H 16 143/94 H 96 O2 Del Method 01/11/25 08:00 01/11/25 03:30 Room Air 01/11/25 00:44 01/10/25 23:03 Room Air Laboratory Results Abnormal lab results 01/10/25 01/10/25 01/10/25 Range/Units 16:06 21:16 23:34 WBC 11.11 H (4.8-10.8) K/ul Neut # (Auto) 7.41 H (1.40-6.50) K/uL Gar[place] # (Auto) 0.78 H (0.11-0.59) K/uL Sodium 135 L (136-145) mmol/L Glucose 133 H (70-99(Fasting)) mg/dl POC Glucose 142 H 145 H (70-99) mg/dl Nasal Screen MRSA (PCR) (Negative) 01/10/25 01/11/25 01/11/25 Range/Units 23:45 06:17 06:19 WBC 14.01 H (4.8-10.8) K/ul Neut # (Auto) (1.40-6.50) K/uL [place] # (Auto) (0.11-0.59) K/uL Sodium 135 L (136-145) mmol/L Glucose 152 H (70-99(Fasting)) mg/dl POC Glucose 133 H (70-99) mg/dl Nasal Screen MRSA (PCR) Positive A (Negative) PG Care Time/CCT Total # of Minutes Spent Total Time Spent with Patient: Total time spent is greater than 50% in coordination of care (as documented) at patient's floor/unit and/or counseling patient: Coding Level of Care Code 16457 SUB INP/OBS CARE 2/35MIN Diagnoses GIB (gastrointestinal bleeding) K92.2 Chronic atrial fibrillation I48.20 S/P above knee amputation Z89.619 Peripheral arterial disease I73.9 Chronic pain G89.29 Chronic heart failure with preserved ejection fraction (HFpEF) I50.32 ASCVD (arteriosclerotic cardiovascular disease) I25.10 CKD (chronic kidney disease), stage III N18.30 Major depressive disorder F32.9 Diabetic polyneuropathy associated with type 2 diabetes mellitus E11.42 CAD (coronary artery disease) I25.10 Diabetes mellitus, type 2 E11.9 Primary hypertension I10 Hypertension type: primary hypertension (13) Hypertension Hypertension type: primary hypertension Qualified Code(s): I10 - Essential (primary) hypertension
[2025-01-11] MEDS: METOPROLOL TARTRATE 1 MG/ML VIAL IV STA (10:49)
[2025-01-11 12:59] LABS: Hematocrit (blood only) 43.7 % (37.0-47.0); Hemoglobin 14.4 g/dl (12.0-16.0)
--- NOTE | 2025-01-11 16:39 | Electrocardiogram Report ---
Test Reason : Blood Pressure : */* mmHG Vent. Rate : 105 BPM Atrial Rate : 337 BPM P-R Int : * ms QRS Dur : 66 ms QT Int : 344 ms P-R-T Axes : * -13 2 degrees QTcB Int : 454 ms Atrial flutter with variable A-V block Inferior infarct , age undetermined Abnormal ECG When compared with ECG of 10-Nov-2024 10:07, Atrial flutter has replaced Atrial fibrillation Inferior infarct is now Present Confirmed by Danyel Hopper ([id number]) on 01/11/2025 4:38:54 PM Referred By: [facility] Confirmed By: Danyel Hopper
[2025-01-11] MEDS: INSULIN ASPART PER UNIT CHARGE SC SCH (16:52)
[2025-01-11] MEDS: MELATONIN 3 MG TAB PO PRN (20:52)
[2025-01-11 21:36] LABS: Hematocrit (blood only) 44.2 % (37.0-47.0); Hemoglobin 14.5 g/dl (12.0-16.0)
[2025-01-12 06:18] LABS: Hematocrit (blood only) 37.0 % (37.0-47.0); Hemoglobin 12.4 g/dl (12.0-16.0); Mean Corpuscular Hemoglobin 28.1 pg (25.0-34.0); Mean Corpuscular Volume 83.9 fL (80.0-100.0); Platelet Count 332 K/uL (130-400); RDW Standard Deviation 42.0 fL (36.4-46.3); Red Blood Count 4.41 M/uL (4.20-5.40); White Blood Count 10.70 K/ul (4.8-10.8)
[2025-01-12 06:39] LABS: Anion Gap 9.0 (3-11); Blood Urea Nitrogen 22.0 mg/dl (6-23); Calcium 9.2 mg/dl (8.6-10.3); Carbon Dioxide 22.0 mmol/L (21-32); Chloride 103.0 mmol/L (98-107); Creatinine Clr Calc Pharmacy 26.6 ml/min; Glucose 126.0 mg/dl (70-99(Fasting)); Potassium 4.2 mmol/L (3.5-5.1); Sodium 134.0 mmol/L (136-145)
--- NOTE | 2025-01-12 10:38 | Gastroenterology Progress Note ---
Date of Service January 12, 2025 Assessment & Plan (1) Rectal bleeding: Plan: 84 year old female with history of atrial fibrillation on Eliquis, peripheral vascular disease w/right lower extremity amputation 2 months ago, DM, HTN, hyperlipidemia, COPD, CAP s/p cardiac stenting, dementia, anxiety/depression, HFpEF, CKD3 w/ report of an isolated episode of rectal bleeding yesterday, however, had a brown stool last evening. Per nursing, no further BMs overnight. 1. Rectal bleeding - Resolved, last BM 01/11 reported as brown - Supportive measures - No current plan for endoscopic evaluation - Trend H&H - Monitor and document GI output - Transfuse PRN as needed - May convert from IV PPI to PO PPI I spent a total of 40 minutes on the date of service in review of patient's record, and previously obtained information in person and appropriate medical visit, discussion and education of plan, with patient and/or caregiver, placing orders for tests/referral/procedures as medically necessary and documentation of pertinent clinical information in patient's medical records for their visit today. Admission and Anticipated Discharge Date Admission Date: January 10, 2025 Supervising Physician Co-Signing Physician Notes Episode of red blood prompting admission. Patient has evidence of shingles in the L5-S1 dermatome. There is significant perianal irritation and excoriation some mild hemorrhoidal enlargement. Brown stool today. Suspect bleeding hemorrhoidal or perianal. No plan for endoscopy at this time. Having brown stools. Can reconsider if there is evidence of gastrointestinal bleeding. Subjective No further BMs overnight. Pt requesting to advance diet. No abd pain, nausea/vomiting. Review of Systems Review of Systems: All other findings negative except as noted in HPI. Physical Exam Constitutional: WD/WN, vitals as above Gastrointestinal (Abdomen): normal bowel sounds, soft, nontender, no hepatosplenomegaly Results & Data Results & Data Vital Signs (Past 12 Hours) Vital Signs Temp Pulse Pulse Resp BP Pulse Ox O2 Del Method 01/12/25 08:00 92 H 01/12/25 07:27 97.9 F 102 H 18 132/76 98 Room Air 01/12/25 04:24 98.1 F 108 H 16 135/81 99 Room Air 01/12/25 00:22 98.2 F 105 H 18 134/78 96 Room Air 01/11/25 23:16 121 H Laboratory Results 01/12/25 01/12/25 01/11/25 Range/Units 07:25 05:42 21:17 WBC 10.70 (4.8-10.8) K/ul RBC 4.41 (4.20-5.40) M/uL Hgb 12.4 14.5 (12.0-16.0) g/dl Hct 37.0 44.2 (37.0-47.0) % MCV 83.9 (80.0-100.0) fL MCH 28.1 (25.0-34.0) pg MCHC 33.5 (32.0-36.0) g/dL RDW Std Deviation 42.0 (36.4-46.3) fL RDW Coeff of Dash 13.6 (11.5-14.5) % Plt Count 332 (130-400) K/uL MPV 10.1 (9.4-12.4) fL Sodium 134 L (136-145) mmol/L Potassium 4.2 (3.5-5.1) mmol/L Chloride 103 (98-107) mmol/L Carbon Dioxide 22 (21-32) mmol/L Anion Gap 9 (3-11) BUN 22 (6-23) mg/dl Creatinine 1.34 H D (0.6-1.2) mg/dl Est Cr Clr Drug Dosing 26.6 ml/min eGFR 39.59 BUN/Creatinine Ratio 16.4 (10-20) Glucose 126 H (70-99(Fasting)) mg/dl POC Glucose 123 H (70-99) mg/dl Calcium 9.2 (8.6-10.3) mg/dl 01/11/25 01/11/25 01/11/25 Range/Units 20:24 16:40 12:48 WBC (4.8-10.8) K/ul RBC (4.20-5.40) M/uL Hgb 14.4 (12.0-16.0) g/dl Hct 43.7 (37.0-47.0) % MCV (80.0-100.0) fL MCH (25.0-34.0) pg MCHC (32.0-36.0) g/dL RDW Std Deviation (36.4-46.3) fL RDW Coeff of Dash (11.5-14.5) % Plt Count (130-400) K/uL MPV (9.4-12.4) fL Sodium (136-145) mmol/L Potassium (3.5-5.1) mmol/L Chloride (98-107) mmol/L Carbon Dioxide (21-32) mmol/L Anion Gap (3-11) BUN (6-23) mg/dl Creatinine (0.6-1.2) mg/dl Est Cr Clr Drug Dosing ml/min eGFR BUN/Creatinine Ratio (10-20) Glucose (70-99(Fasting)) mg/dl POC Glucose 119 H 202 H (70-99) mg/dl Calcium (8.6-10.3) mg/dl 01/11/25 Range/Units 12:39 WBC (4.8-10.8) K/ul RBC (4.20-5.40) M/uL Hgb (12.0-16.0) g/dl Hct (37.0-47.0) % MCV (80.0-100.0) fL MCH (25.0-34.0) pg MCHC (32.0-36.0) g/dL RDW Std Deviation (36.4-46.3) fL RDW Coeff of Dash (11.5-14.5) % Plt Count (130-400) K/uL MPV (9.4-12.4) fL Sodium (136-145) mmol/L Potassium (3.5-5.1) mmol/L Chloride (98-107) mmol/L Carbon Dioxide (21-32) mmol/L Anion Gap (3-11) BUN (6-23) mg/dl Creatinine (0.6-1.2) mg/dl Est Cr Clr Drug Dosing ml/min eGFR BUN/Creatinine Ratio (10-20) Glucose (70-99(Fasting)) mg/dl POC Glucose 140 H (70-99) mg/dl Calcium (8.6-10.3) mg/dl PG Care Time/CCT Total # of Minutes Spent Total Time Spent with Patient: Total time spent is greater than 50% in coordination of care (as documented) at patient's floor/unit and/or counseling patient: Coding Level of Care Code 32759 SUB INP/OBS CARE 2/35MIN Diagnoses Rectal bleeding K62.5
--- NOTE | 2025-01-12 14:28 | Hospitalist Progress Note ---
Date of Service January 12, 2025 Assessment & Plan (1) GIB (gastrointestinal bleeding): (2) Chronic atrial fibrillation: (3) S/P above knee amputation: (4) Peripheral arterial disease: (5) Chronic pain: (6) Chronic heart failure with preserved ejection fraction (HFpEF): (7) ASCVD (arteriosclerotic cardiovascular disease): (8) CKD (chronic kidney disease), stage III: (9) Major depressive disorder: (10) Diabetic polyneuropathy associated with type 2 diabetes mellitus: (11) CAD (coronary artery disease): (12) Diabetes mellitus, type 2: (13) Hypertension: Plan This is an 84-year-old female with atrial fibrillation on Eliquis, peripheral vascular disease with right lower extremity amputation 2 months ago, diabetes mellitus, hypertension/hyperlipidemia, COPD,'s coronary artery disease status post stent, dementia, anxiety/depression, HFpEF, CKD stage III who presents with dark stools that are heme positive #GI bleed in the setting of being on anticoagulation Maroon-colored stools that are strongly heme positive Per nurse patient was having incontinent maroon-colored stools Hemoglobin stable Hemodynamically stable Hold Eliquis Hold aspirin Monitor H&H and vitals No more bloody bowel movements today Advance diet Switch to p.o. Protonix This is most likely a diverticular bleed #Atrial fibrillation paroxysmal Hold Eliquis due to GI bleed Continue metoprolol with holding parameters Patient refused to take any medications this morning. Her heart rate and blood pressure are elevated Will give her IV metoprolol now #Acute kidney injury Her creatinine has bumped up at 1.3 today. Unsure if the patient is drinking enough fluids Will start IV fluids if poor p.o. intake #Coronary artery disease status post stent/peripheral vascular disease Hold aspirin in the setting of GI bleed Continue metoprolol Status post right lower extremity amputation on 11/10. Wound healing well #Diabetes mellitus type 2 Sliding scale insulin Carb controlled clear liquid diet #Shingles Recently diagnosed Continue Valtrex if patient cooperates #COPD/remote tobacco abuse Quit smoking 2 years ago Not on oxygen at home #Hypertension/hyperlipidemia Continue metoprolol and statin #Anxiety/depression Continue trazodone and fluoxetine VTE prophylaxis: SCDs. No chemical prophylaxis due to recent GI bleed CODE STATUS: Full code Admission and Anticipated Discharge Date Admission Date: January 12, 2025 Subjective Per nurse, patient has not had any bloody bowel movement this morning. Her last bloody bowel movement was yesterday. She wishes to eat solid food which she was allowed to. She had refused her morning medications yesterday but took them today. Review of Systems Review of Systems: All systems reviewed & are unremarkable except as noted in Subjective Physical Exam Physical Exam: General: Awake, conversant. Elderly frail looking female lying in bed. Heart: S1, S2/regular rate and rhythm, no murmur rubs or gallops Lungs: Clear to auscultation bilaterally. Normal effort Abdomen: Soft/nontender/nondistended. No hepatosplenomegaly Extremities: No clubbing/cyanosis. No edema. Status post right lower extremity amputation, healed surgical wound Behavior: Appropriate, cooperative Results & Data Results & Data Vital Signs (Past 12 Hours) Vital Signs Temp Pulse Pulse Resp BP Pulse Ox O2 Del Method 01/12/25 12:07 36.7 C 102 H 18 118/80 98 Room Air 01/12/25 08:00 92 H 01/12/25 07:27 36.6 C 102 H 18 132/76 98 Room Air 01/12/25 04:24 36.7 C 108 H 16 135/81 99 Room Air Laboratory Results Abnormal lab results 01/11/25 01/11/25 01/12/25 Range/Units 16:40 20:24 05:42 Sodium 134 L (136-145) mmol/L Creatinine 1.34 H D (0.6-1.2) mg/dl Glucose 126 H (70-99(Fasting)) mg/dl POC Glucose 202 H 119 H (70-99) mg/dl 01/12/25 01/12/25 Range/Units 07:25 12:01 Sodium (136-145) mmol/L Creatinine (0.6-1.2) mg/dl Glucose (70-99(Fasting)) mg/dl POC Glucose 123 H 143 H (70-99) mg/dl PG Care Time/CCT Total # of Minutes Spent Total Time Spent with Patient: Total time spent is greater than 50% in coordination of care (as documented) at patient's floor/unit and/or counseling patient: Coding Level of Care Code 22893 SUB INP/OBS CARE 2/35MIN Diagnoses GIB (gastrointestinal bleeding) K92.2 Chronic atrial fibrillation I48.20 S/P above knee amputation Z89.619 Peripheral arterial disease I73.9 Chronic pain G89.29 Chronic heart failure with preserved ejection fraction (HFpEF) I50.32 ASCVD (arteriosclerotic cardiovascular disease) I25.10 CKD (chronic kidney disease), stage III N18.30 Major depressive disorder F32.9 Diabetic polyneuropathy associated with type 2 diabetes mellitus E11.42 CAD (coronary artery disease) I25.10 Diabetes mellitus, type 2 E11.9 Primary hypertension I10 Hypertension type: primary hypertension (13) Hypertension Hypertension type: primary hypertension Qualified Code(s): I10 - Essential (primary) hypertension
[2025-01-12] MEDS: SODIUM CHLORIDE 0.9% 1,000 ML IV SCH (15:13)
[2025-01-13 03:19] VITALS: RESP 16; O2SAT 95
[2025-01-13 06:00] LABS: Hematocrit (blood only) 36.1 % (37.0-47.0); Hemoglobin 11.8 g/dl (12.0-16.0); Mean Corpuscular Hemoglobin 27.7 pg (25.0-34.0); Mean Corpuscular Volume 84.7 fL (80.0-100.0); Platelet Count 253 K/uL (130-400); RDW Standard Deviation 41.8 fL (36.4-46.3); Red Blood Count 4.26 M/uL (4.20-5.40); White Blood Count 8.76 K/ul (4.8-10.8)
[2025-01-13 06:16] LABS: Anion Gap 7.0 (3-11); Blood Urea Nitrogen 21.0 mg/dl (6-23); Calcium 8.5 mg/dl (8.6-10.3); Carbon Dioxide 20.0 mmol/L (21-32); Chloride 110.0 mmol/L (98-107); Creatinine Clr Calc Pharmacy 32.2 ml/min; Glucose 112.0 mg/dl (70-99(Fasting)); Potassium 3.8 mmol/L (3.5-5.1); Sodium 137.0 mmol/L (136-145)
[2025-01-13 07:36] VITALS: TEMP 97.5
--- NOTE | 2025-01-13 09:34 | Gastroenterology Progress Note ---
Date of Service January 13, 2025 Assessment & Plan (1) Rectal bleeding: Plan: 84 year old female with history of atrial fibrillation on Eliquis, peripheral vascular disease w/right lower extremity amputation 2 months ago, DM, HTN, hyperlipidemia, COPD, CAP s/p cardiac stenting, dementia, anxiety/depression, HFpEF, CKD3 w/ report of an isolated episode of rectal bleeding yesterday, however, had a brown stool last evening. Per nursing, no further BMs overnight. 1. Rectal bleeding - Resolved, last BM 01/11 reported as brown - Supportive measures - No current plan for endoscopic evaluation - Trend H&H - Monitor and document GI output - Transfuse PRN as needed - May convert from IV PPI to PO PPI Recall GI as needed. I spent a total of 40 minutes on the date of service in review of patient's record, and previously obtained information in person and appropriate medical visit, discussion and education of plan, with patient and/or caregiver, placing orders for tests/referral/procedures as medically necessary and documentation of pertinent clinical information in patient's medical records for their visit today. Admission and Anticipated Discharge Date Admission Date: January 12, 2025 Subjective Sitting upright in bed, eating breakfast. Denies abd pain, nausea/vomiting. No further BMs overnight. Last stool was reported on 01/11 as brown. Review of Systems Review of Systems: All other findings negative except as noted in HPI. Physical Exam Constitutional: WD/WN, vitals as above Gastrointestinal (Abdomen): normal bowel sounds, soft, nontender, no hepatosplenomegaly Skin: no rashes, warm and dry Results & Data Results & Data Vital Signs (Past 12 Hours) Vital Signs Temp Pulse Pulse Resp BP Pulse Ox O2 Del Method 01/13/25 07:35 97.5 F L 98 H 16 119/76 95 Room Air 01/13/25 03:19 98.2 F 76 16 115/66 95 Room Air 01/12/25 23:35 101 H 01/12/25 22:27 97.9 F 105 H 17 110/79 97 Room Air Laboratory Results 01/13/25 01/13/25 01/12/25 Range/Units 07:28 05:40 20:24 WBC 8.76 (4.8-10.8) K/ul RBC 4.26 (4.20-5.40) M/uL Hgb 11.8 L (12.0-16.0) g/dl Hct 36.1 L (37.0-47.0) % MCV 84.7 (80.0-100.0) fL MCH 27.7 (25.0-34.0) pg MCHC 32.7 (32.0-36.0) g/dL RDW Std Deviation 41.8 (36.4-46.3) fL RDW Coeff of Dash 13.7 (11.5-14.5) % Plt Count 253 (130-400) K/uL MPV 9.9 (9.4-12.4) fL Sodium 137 (136-145) mmol/L Potassium 3.8 (3.5-5.1) mmol/L Chloride 110 H (98-107) mmol/L Carbon Dioxide 20 L (21-32) mmol/L Anion Gap 7 (3-11) BUN 21 (6-23) mg/dl Creatinine 1.11 (0.6-1.2) mg/dl Est Cr Clr Drug Dosing 32.2 ml/min eGFR 49.63 BUN/Creatinine Ratio 18.9 (10-20) Glucose 112 H (70-99(Fasting)) mg/dl POC Glucose 124 H 134 H (70-99) mg/dl Calcium 8.5 L (8.6-10.3) mg/dl 01/12/25 01/12/25 Range/Units 16:31 12:01 WBC (4.8-10.8) K/ul RBC (4.20-5.40) M/uL Hgb (12.0-16.0) g/dl Hct (37.0-47.0) % MCV (80.0-100.0) fL MCH (25.0-34.0) pg MCHC (32.0-36.0) g/dL RDW Std Deviation (36.4-46.3) fL RDW Coeff of Dash (11.5-14.5) % Plt Count (130-400) K/uL MPV (9.4-12.4) fL Sodium (136-145) mmol/L Potassium (3.5-5.1) mmol/L Chloride (98-107) mmol/L Carbon Dioxide (21-32) mmol/L Anion Gap (3-11) BUN (6-23) mg/dl Creatinine (0.6-1.2) mg/dl Est Cr Clr Drug Dosing ml/min eGFR BUN/Creatinine Ratio (10-20) Glucose (70-99(Fasting)) mg/dl POC Glucose 115 H 143 H (70-99) mg/dl Calcium (8.6-10.3) mg/dl PG Care Time/CCT Total # of Minutes Spent Total Time Spent with Patient: Total time spent is greater than 50% in coordination of care (as documented) at patient's floor/unit and/or counseling patient: Coding Level of Care Code 04848 SUB INP/OBS CARE 235MIN Diagnoses Rectal bleeding K62.5
--- NOTE | 2025-01-13 12:31 | Discharge Summary ---
Date of Service January 13, 2025 Admission HPI Per Admitting Provider This is an 84-year-old female, resident at [facility] for 2 years, with history of atrial fibrillation on Eliquis, right lower extremity amputation 2 months ago, diabetes mellitus type 2, hyperlipidemia, hypertension, COPD, remote tobacco abuse, coronary artery disease status post stent, HFpEF, CKD stage III, anxiety/depression, dementia who presents to the ER with the above chief complaint. The patient is not a good historian. She is accompanied by her daughter at the bedside who is able to provide history. The daughter got a call from [facility] this morning about the patient's. She was informed that the patient had dark stools that were heme positive. Moreover her blood pressure was low and she was weak. Decision was made to call 911 and get her transferred to the emergency room. In the ER, she had a rectal exam done with heme positive stools. Her blood pressure is stable now. Per ER doc, she has not been having bloody bowel movements. He had to do a rectal exam to do the stool test. Screening tests in the emergency room showed that her hemoglobin was normal and stable. Since the patient is on Eliquis, a decision was made to admit the patient and to follow serial hemoglobin and to decide on GI workup. Principal Diagnosis Lower GI bleed possibly diverticular bleed in the setting of being on anticoagulation Chronic atrial fibrillation, was on Eliquis Mild acute kidney injury secondary to poor oral intake Shingles Discharge Exam General: Awake, conversant. Elderly frail looking female lying in bed. Heart: S1, S2/regular rate and rhythm, no murmur rubs or gallops Lungs: Clear to auscultation bilaterally. Normal effort Abdomen: Soft/nontender/nondistended. No hepatosplenomegaly Extremities: No clubbing/cyanosis. No edema. Status post right lower extremity amputation, healed surgical wound Behavior: Appropriate, cooperative Discharge Data Allergies Allergy/AdvReac Type Severity Reaction Status Date / Time codeine Allergy Mild SICK Verified 11/10/24 09:42 propoxyphene Allergy Mild SICK Verified 11/10/24 09:42 BEE STING Allergy Severe Anaphylaxis Uncoded 11/10/24 09:42 Consultations 01/10/25 18:13 ED Decision to Admit Stat 01/10/25 21:08 Consult Gastroenterology Routine Ordered Studies Chest X-Ray 01/10/25 15:46 EXAM: Portable AP chest radiograph TECHNIQUE: AP portable radiograph of the chest was obtained. INDICATION: Shortness of breath Comparison: Chest radiograph November 10, 2024 FINDINGS: LINES and TUBES: None CARDIOVASCULAR: Cardiac silhouette is stably and mildly enlarged in size. Atherosclerosis of the thoracic aorta LUNGS/PLEURA: No focal consolidation identified. No significant pleural fluid. No discernible pneumothorax. OSSEOUS/OTHER: No displaced acute osseous process identified. Redemonstration of right shoulder cuff repair IMPRESSION: No radiographic evidence of acute cardiopulmonary process with unchanged findings compared to the November 10, 2024 radiograph Electronically signed by Dirk Lopez 01-10-2025 5:31 PM KUB X-Ray 01/10/25 15:46 INDICATION: Abdominal pain TECHNIQUE: Portable supine view radiograph of the abdomen was obtained. COMPARISON: None. FINDINGS: The bowel gas pattern is nonobstructive. Evaluation for free air is limited due to supine technique. Organ silhouettes are normal in shape and contour. There is no gross mass effect. Vascular calcifications and pelvic phleboliths. Punctate calcific densities projecting over the left kidney shadow could be due to renal calculi. IMPRESSION: Nonobstructive bowel gas pattern. Electronically signed by Dirk Lopez 01-10-2025 5:43 PM Hospital Course (1) GIB (gastrointestinal bleeding): (2) Chronic atrial fibrillation: (3) S/P above knee amputation: (4) Peripheral arterial disease: (5) Chronic pain: (6) Chronic heart failure with preserved ejection fraction (HFpEF): (7) ASCVD (arteriosclerotic cardiovascular disease): (8) CKD (chronic kidney disease), stage III: (9) Major depressive disorder: (10) Diabetic polyneuropathy associated with type 2 diabetes mellitus: (11) CAD (coronary artery disease): (12) Diabetes mellitus, type 2: (13) Hypertension: Plan This is an 84-year-old female with atrial fibrillation on Eliquis, peripheral vascular disease with right lower extremity amputation 2 months ago, diabetes mellitus, hypertension/hyperlipidemia, COPD,'s coronary artery disease status post stent, dementia, anxiety/depression, HFpEF, CKD stage III who presents with dark stools that are heme positive #GI bleed in the setting of being on anticoagulation Maroon-colored stools that are strongly heme positive Per nurse patient was having incontinent maroon-colored stools Hemoglobin stable Hemodynamically stable Eliquis and aspirin were held during the hospital stay H&H remained stable Bloody bowel movements eventually stopped Patient is tolerating a p.o. diet GI did not recommend any further intervention Switch to p.o. Protonix This is most likely a diverticular bleed Will discharge off of Eliquis. Resumption of Eliquis to be determined by PCP. #Atrial fibrillation paroxysmal Hold Eliquis due to GI bleed Continue metoprolol with holding parameters #Acute kidney injury Her creatinine has bumped up at 1.3 during the hospital stay. Nurse informed that the patient was not drinking enough fluids Improved once IV fluids given. #Coronary artery disease status post stent/peripheral vascular disease Resume aspirin Continue metoprolol Status post right lower extremity amputation on 11/10. Wound healing well #Diabetes mellitus type 2 Sliding scale insulin Carb controlled clear liquid diet #Shingles Recently diagnosed Continue Valtrex #COPD/remote tobacco abuse Quit smoking 2 years ago Not on oxygen at home #Hypertension/hyperlipidemia Continue metoprolol and statin #Anxiety/depression Continue trazodone and fluoxetine Discharge back today Total Time Total Time Spent Total Time Spent (In Minutes): 35 Discharge Plan Discharge Items Patient Disposition: Transfer Jail Fac Reason For Visit: DARK STOOLS Discharge Diagnosis: Lower GI bleed possibly diverticular bleed in the setting of being on anticoagulation Chronic atrial fibrillation, was on Eliquis Mild acute kidney injury secondary to poor oral intake Shingles Condition on Discharge: Fair Activity: Resume your previous activity Non-emergency contact: Primary Care Provider Call non-emergency contact if: you have any medication questions and your symptoms worsen Follow-up/Referrals: Amparo Rich DO [Primary Care Provider] - Diet: Carb Consistent or DM2 and Heart Healthy Addtl Attending Provider Instructions: Advised to follow-up with PCP in 1 week Pending Studies at Discharge: No Stand-Alone Forms: My [facility] Skilled Items Patient informed of condition?: Yes DNR: No Discharge Level of Care: Skilled Communicable Disease: Yes Discharge Prognosis: Stable Lines: None Urinary Catheter: No Medications and DC Order Prescriptions: New pantoprazole 40 mg Tablet,Delayed Release (Dr/Ec) 40 mg PO QAM 30 Days Qty: 30 0RF Continued trazodone 100 mg tablet 100 mg PO HS epinephrine 0.3 mg/0.3 mL Auto-Injector 0.3 mg IM . NEEDED PRN (Reason: ALLERGY REACTION) metformin 1,000 mg Tablet 1,000 mg PO AMHS fluoxetine 20 mg Capsule 20 mg PO DAILY acetaminophen 325 mg Tablet 650 mg PO Q6 MDD 3G PRN (Reason: Pain 1-4) sennosides-docusate sodium [Senna with Docusate Sodium] 8.6-50 mg Tablet 1 tab-cap PO [facility]HS potassium chloride 20 mEq tablet extended release 20 meq PO DAILY Qty: 3 0RF aspirin 81 mg Tablet,Delayed Release (Dr/Ec) 81 mg PO DAILY atorvastatin 40 mg tablet 40 mg PO DAILY metoprolol succinate 100 mg Tablet Extended Release 24 Hr 100 mg PO [facility]HS ondansetron 4 mg tablet,disintegrating 4 mg PO Q6 PRN (Reason: N/V) valacyclovir 1 gram tablet 1 mg PO TID Rx Instructions: START 01/09/25 TAKE FOR 7 DAYS acetaminophen 325 mg Tablet 650 mg PO Q6 MDD 3 GRAMS PRN (Reason: TEMP > 100) triamcinolone acetonide 0.1 % cream 1 applic TOPICAL TID Rx Instructions: APPLY TO LOWER BACK/BUTTOCK FOR RASH X 2 WEEKS START 01/09/25 bacitracin 500 unit/gram Ointment 1 applic TOPICAL .EVERY DAY SHIFT Rx Instructions: APPLY T0 LEFT GREAT TOE AFTER CLEANSING WITH NSS OR WOUND AQUARIUM SPECIALIST , THEN COVER WITH DRY DRESSING hydrocodone-acetaminophen 5-325 mg Tablet 2 tab PO Q6H MDD 3 GRAMS OF APAP PRN (Reason: MODERATE OR SEVERE PAIN 5-10) Held Eliquis 2.5 mg tablet 2.5 mg PO AMHS Hold Instructions: Resume on 01/27/25. Hold until cleared by PCP to resume Discharge Orders: Discharge Order (Routine); Ordered 01/13/25 Ordered By: Dev De La Fuente Admission Data Admit Date/Time: 01/12/25 11:37 Attending Provider: Dev De La Fuente Admit Provider: Dev De La Fuente Primary Care Provider: Amparo Rich Other Providers: Dev De La Fuente; Daniel Steiner Jr; [place] [facility]
[2025-01-13 13:50] VITALS: BP 143/94; PULSE 87
== END 2025-01-13 14:23 | DRG 813 ==
LOC: SUATTDRO → ED 15:38 → 2S 15:38